=== PATIENT | female | born 1960 | race Caucasian/White ===

== ENCOUNTER 2016-10-14 09:38 | Emergency (ER) | payer MEDICARE, OTHER ==
--- NOTE | 2016-10-14 10:29 | ED ---
General Adult HPI - General Chief complaint: Chest Pain Stated complaint: CHEST PRESSURE, THINKS SHE HAS PNEUMONIA Time Seen by Provider: 10/14/16 10:13 Source: patient, RN notes reviewed, old records reviewed Mode of arrival: ambulatory Limitations: no limitations - History of Present Illness Initial comments: Chief complaint history of present illness this is a 56-year-old female complaint of a cough 1 week ago and chest pressure today. Think she has pneumonia. Pain does not increase with coughing but does increase with pushing on her xiphoid region. No associated nausea or sweats at this time. No radiation of discomfort. - Related Data Home Medications Medication Instructions Recorded Confirmed Meclizine [Antivert] 25 mg PO BID 12/21/14 10/14/16 Omeprazole [PriLOSEC] 20 mg PO BID 12/21/14 10/14/16 Butalb/APAP/Caff 50-325-40Mg 1 tab PO Q8H PRN 09/28/15 10/14/16 [Fioricet 50-325-40] Atenolol [Tenormin] 25 mg PO HS 01/10/16 10/14/16 Nitroglycerin Sl Tabs [Nitrostat] 0.4 mg SUBLINGUAL Q5M PRN 01/25/16 10/14/16 Dicyclomine HCl 10 mg PO DAILY 06/02/16 10/14/16 HYDROcodone/APAP 10-325MG [[place] 1 tab PO TID PRN 06/02/16 10/14/16 10-325] Rivaroxaban [Xarelto] 20 mg PO HS 06/02/16 10/14/16 Cholecalciferol [Vitamin D3] 2,000 unit PO DAILY 07/02/16 10/14/16 Atorvastatin Calcium [Lipitor] 20 mg PO HS 09/17/16 10/14/16 Topiramate [Topamax] 50 mg PO BID 09/17/16 10/14/16 Previous Rx's Medication Instructions Recorded Aspirin 81 mg PO DAILY #30 chew 06/07/16 ARIPiprazole [Abilify] 15 mg PO DAILY #30 tab 07/10/16 DULoxetine HCL [Cymbalta] 60 mg PO DAILY #30 cap 07/10/16 traZODone HCL [Desyrel] 50 mg PO HS #30 tab 07/10/16 Allergies Allergy/AdvReac Type Severity Reaction Status Date / Time hydrogen peroxide Allergy rash and Verified 10/14/16 10:16 skin burn metronidazole Allergy Unknown Verified 10/14/16 10:16 fentanyl AdvReac decreased Verified 10/14/16 10:16 bp isosorbide AdvReac Rapid Verified 10/14/16 10:16 Heart Rate Review of Systems ROS Statement: Those systems with pertinent positive or pertinent negative responses have been documented in the HPI. Patient denies any visual acuity changes she has a mild headache. No stiff neck no fever. Chest discomfort with palpation of her own chest. Productive cough clear in color. No abdominal pain denies any vomiting. No diarrhea. No complaint of a neuro deficits. All systems were otherwise reviewed. Past medical problems significant for angina, COPD, DVT, GERD, hyperlipidemia, pneumonia, pulmonary emboli, varicose veins. Surgeries appendectomy, cholecystectomy EGD and colonoscopy. Family history noncontributory. Patient has ALLERGIES to hydroperoxide, metronidazole, no and isosorbide. Currently encouraged to stop smoking. Denies alcohol use ROS Other: All systems not noted in ROS Statement are negative. Past Medical History Past Medical History: Chest Pain / Angina, COPD, Deep Vein Thrombosis (DVT), GERD/Reflux, Hyperlipidemia, Pneumonia, Pulmonary Embolus (PE) Additional Past Medical History / Comment(s): varicose veins,"low BP", migraines , osteoporosis ;mastitis bilat.IBS, VERTIGO, DDD NERVE DAMAGE GETS TRIGGER POINT SHOTS, bilateral PE 2014 and 2010 History of Any Multi-Drug Resistant Organisms: None Reported Past Surgical History: Appendectomy, Cholecystectomy Additional Past Surgical History / Comment(s): EGD/COLONOSCOPY/POLYPECTOMY- BENIGN Past Anesthesia/Blood Transfusion Reactions: No Reported Reaction Past Psychological History: Anxiety, Bipolar, Depression, PTSD, Schizophrenia Smoking Status: Current every day smoker Past Alcohol Use History: None Reported Additional Past Alcohol Use History / Comment(s): STARTED SMOKING AT AGE 14 A PACK LASTS BETWEEN 1-3 DAYS, Past Drug Use History: Marijuana - Past Family History Mother Family Medical History: Cancer, COPD, Hypertension Additional Family Medical History / Comment(s): LUNG CANCER Father Family Medical History: CVA/TIA, Hypertension General Exam - General Exam Comments Initial Comments: General: The patient is awake and alert, in no distress, and does not appear acutely ill. Planes of chest discomfort specifically over her xiphoid region. Had a cough last week. She states productive clear color. No radiation of pain. No associated sweats. Vital signs show temperature 97.8 pulse 71 respiratory rate 18 pulse ox 90% room air blood pressure 109/53 Eye: Pupils are equal, round and reactive to light, extra-ocular movements are intact ; there is normal conjunctiva bilaterally. No signs of icterus. Ears, nose, mouth and throat: There are moist mucous membranes and no oral lesions. Neck: The neck is supple, there is no tenderness , no JVD or anterior cervical lymphadenopathy. Cardiovascular: There is a regular rate and rhythm. No murmur, rub or gallop is appreciated. Palpation of the xiphoid re-creates her discomfort the patient is describing as her chest pain. Respiratory: Lungs are clear to auscultation, respirations are non-labored, breath sounds are equal. No wheezes, stridor, rales, or rhonchi. Gastrointestinal: Soft, non-distended, non-tender abdomen without masses or organomegaly noted. There is no rebound or guarding present. No CVA tenderness. Bowel sounds are unremarkable. Back: There is no tenderness to palpation in the midline. There is no obvious deformity. No rashes noted. Musculoskeletal: Normal ROM, no tenderness, There is no pedal edema. There is no calf tenderness or swelling. Sensation intact. Pulses equal bilaterally 2+. Neurological: CN II-XII intact, There are no obvious motor or sensory deficits. Coordination appears grossly intact. Speech is normal. Skin: Skin is warm and dry and no rashes or lesions are noted. Psychiatric: Cooperative, appropriate mood & affect, normal judgment. History of schizoaffective disorder. Limitations: no limitations Course Vital Signs 10/14/16 10/14/16 10:01 11:36 Temperature 97.8 F Pulse Rate 71 59 L Respiratory 18 16 Rate Blood Pressure 109/53 115/60 O2 Sat by Pulse 98 100 Oximetry Medical Decision Making - Medical Decision Making Medical decision making; patient's white count 7 hemoglobin 12 hematocrit of 36 with an INR 1.1, potassium 4.3 to BUN 8 creatinine 0.76 and GFR greater than 60. Glucose 89. Troponin less than 0.012. D-dimer 0.24. All numbers normal. Chest x-ray was done and reviewed by radiologist his impression is the lungs are clear and there is no pneumothorax, pleural effusion, or focal pneumonia. Hyperinflation noted. Degenerative changes of the spine seen. No acute process. As read by Dr. Stark The patient be advised to call follow-up with family physician and her rod pointer. Advised to use Mucinex and Tylenol for muscle aches and pains and discomfort. And return emergency room as needed. - Lab Data Result diagrams: 10/14/16 10:19 10/14/16 10:19 Lab Results 10/14/16 10/14/16 10/14/16 Range/Units 10:19 10:19 10:19 WBC 7.0 (3.8-10.6) k/uL RBC 3.94 (3.80-5.40) m/uL Hgb 12.5 (11.4-16.0) gm/dL Hct 36.0 (34.0-46.0) % MCV 91.4 (80.0-100.0) fL MCH 31.6 (25.0-35.0) pg MCHC 34.6 (31.0-37.0) g/dL RDW 14.1 (11.5-15.5) % Plt Count 235 (150-450) k/uL Neutrophils % 57 % Lymphocytes % 34 % Monocytes % 4 % Eosinophils % 2 % Basophils % 1 % Neutrophils # 4.0 (1.3-7.7) k/uL Lymphocytes # 2.4 (1.0-4.8) k/uL Monocytes # 0.3 (0-1.0) k/uL Eosinophils # 0.1 (0-0.7) k/uL Basophils # 0.1 (0-0.2) k/uL PT (9.0-12.0) sec INR (<1.1) APTT (22.0-30.0) sec D-Dimer (<0.60) mg/L FEU Sodium 137 (137-145) mmol/L Potassium 4.3 (3.5-5.1) mmol/L Chloride 107 (98-107) mmol/L Carbon Dioxide 21 L (22-30) mmol/L Anion Gap 9 mmol/L BUN 8 (7-17) mg/dL Creatinine 0.76 (0.52-1.04) mg/dL Est GFR (MDRD) Af Amer >60 (>60 ml/min/1.73 sqM) Est GFR (MDRD) Non-Af >60 (>60 ml/min/1.73 sqM) Glucose 89 (74-99) mg/dL Calcium 9.2 (8.4-10.2) mg/dL Magnesium 2.0 (1.6-2.3) mg/dL Total Bilirubin 0.2 (0.2-1.3) mg/dL AST 16 (14-36) U/L ALT 28 (9-52) U/L Alkaline Phosphatase 100 (38-126) U/L Total Creatine Kinase 70 (30-135) U/L CK-MB (CK-2) 0.5 (0.0-2.4) ng/mL CK-MB (CK-2) Rel Index 0.7 Troponin I <0.012 (0.000-0.034) ng/mL NT-Pro-B Natriuret Pep pg/mL Total Protein 5.9 L (6.3-8.2) g/dL Albumin 3.4 L (3.5-5.0) g/dL 10/14/16 10/14/16 Range/Units 10:19 10:19 WBC (3.8-10.6) k/uL RBC (3.80-5.40) m/uL Hgb (11.4-16.0) gm/dL Hct (34.0-46.0) % MCV (80.0-100.0) fL MCH (25.0-35.0) pg MCHC (31.0-37.0) g/dL RDW (11.5-15.5) % Plt Count (150-450) k/uL Neutrophils % % Lymphocytes % % Monocytes % % Eosinophils % % Basophils % % Neutrophils # (1.3-7.7) k/uL Lymphocytes # (1.0-4.8) k/uL Monocytes # (0-1.0) k/uL Eosinophils # (0-0.7) k/uL Basophils # (0-0.2) k/uL PT 10.7 (9.0-12.0) sec INR 1.1 (<1.1) APTT 26.3 (22.0-30.0) sec D-Dimer 0.24 (<0.60) mg/L FEU Sodium (137-145) mmol/L Potassium (3.5-5.1) mmol/L Chloride (98-107) mmol/L Carbon Dioxide (22-30) mmol/L Anion Gap mmol/L BUN (7-17) mg/dL Creatinine (0.52-1.04) mg/dL Est GFR (MDRD) Af Amer (>60 ml/min/1.73 sqM) Est GFR (MDRD) Non-Af (>60 ml/min/1.73 sqM) Glucose (74-99) mg/dL Calcium (8.4-10.2) mg/dL Magnesium (1.6-2.3) mg/dL Total Bilirubin (0.2-1.3) mg/dL AST (14-36) U/L ALT (9-52) U/L Alkaline Phosphatase (38-126) U/L Total Creatine Kinase (30-135) U/L CK-MB (CK-2) (0.0-2.4) ng/mL CK-MB (CK-2) Rel Index Troponin I (0.000-0.034) ng/mL NT-Pro-B Natriuret Pep 119 pg/mL Total Protein (6.3-8.2) g/dL Albumin (3.5-5.0) g/dL Disposition Clinical Impression: Costochondritis, acute, Viral upper respiratory tract infection Disposition: HOME SELF-CARE Condition: Stable Instructions: Costochondritis (ED), Viral Syndrome (ED) Additional Instructions: Use Tylenol or ibuprofen for pain. Use Mucinex for cold symptoms. Follow-up family physician return emergency room as needed Time of Disposition: 11:49
--- NOTE | 2016-10-14 10:41 | XR ---
EXAMINATION TYPE: XR chest 2V DATE OF EXAM: 10/14/2016 10:38 AM COMPARISON: 06/05/2016 HISTORY: Chest pain FINDINGS: The lungs are clear and there is no pneumothorax, pleural effusion, or focal pneumonia. Hyperinflati on noted. Degenerative change of the spine seen. IMPRESSION: 1. No acute process.
[2016-10-14 10:50] LABS: Basophils # (A) 0.1 k/uL (0-0.2); Basophils % (A) 1 %; CH 30.9; Eosinophils # (A) 0.1 k/uL (0-0.7); Eosinophils % (A) 2 %; HDW 2.48; HGB 12.5 gm/dL (11.4-16.0); Luc # (Auto) 0.18; Luc % (Auto) 3; Lymphocytes # (A) 2.4 k/uL (1.0-4.8); Lymphocytes % (A) 34 %; MCH 31.6 pg (25.0-35.0); MCHC 34.6 g/dL (31.0-37.0); MCV 91.4 fL (80.0-100.0); Mean Platelet Volume 7.4; Monocytes # (A) 0.3 k/uL (0-1.0); Monocytes % (A) 4 %; Neutrophils % (A) 57 %; RBC 3.94 m/uL (3.80-5.40); RDW 14.1 % (11.5-15.5); WBC (Perox) 7.46
[2016-10-14 11:01] LABS: ALT 28 U/L (9-52); AST 16 U/L (14-36); Alkaline Phosphatase 100 U/L (38-126); Anion Gap 9 mmol/L; Blood Urea Nitrogen 8 mg/dL (7-17); Calcium 9.2 mg/dL (8.4-10.2); Carbon Dioxide 21 mmol/L (22-30); Chloride 107 mmol/L (98-107); Glucose 89 mg/dL (74-99); Non-African American GFR(MDRD) >60 (>60 ml/min/1.73 sqM); Potassium 4.3 mmol/L (3.5-5.1); Sodium 137 mmol/L (137-145); Total Bilirubin 0.2 mg/dL (0.2-1.3); Total Protein 5.9 g/dL (6.3-8.2)
[2016-10-14 11:09] LABS: INR 1.1 (<1.1); Partial Thromboplastin Time 26.3 sec (22.0-30.0); Prothrombin Time 10.7 sec (9.0-12.0)
[2016-10-14 11:11] LABS: Creatine Kinase 70 U/L (30-135)
[2016-10-14 11:24] LABS: Creatine Kinase MB 0.5 ng/mL (0.0-2.4); Troponin I <0.012 ng/mL (0.000-0.034)
[2016-10-14 11:37] VITALS: RESP 16
[2016-10-14 11:56] VITALS: BP 105/67; PULSE 60; TEMP 97.2
== END 2016-10-14 12:04 | disposition home or self-care (01) ==
LOC: EC 09:38
DX: M94.0 Chondrocostal junction syndrome [Tietze] (principal); R42 Dizziness and giddiness; K21.9 Gastro-esophageal reflux disease without esophagitis; J06.9 Acute upper respiratory infection, unspecified; E78.5 Hyperlipidemia, unspecified; K58.9 Irritable bowel syndrome, unspecified; Z79.899 Other long term (current) drug therapy; Z79.01 Long term (current) use of anticoagulants; Z88.8 Allergy status to other drugs, medicaments and biological substances; Z91.048 Other nonmedicinal substance allergy status; Z88.5 Allergy status to narcotic agent; J44.9 Chronic obstructive pulmonary disease, unspecified; Z86.718 Personal history of other venous thrombosis and embolism; Z86.711 Personal history of pulmonary embolism; F17.200 Nicotine dependence, unspecified, uncomplicated; M81.0 Age-related osteoporosis without current pathological fracture
CPT/HCPCS: 36415; 71020; 80053; 82550; 82553; 83735; 83880; 84484; 85025; 85379; 85610; 85730; 93005; 99285

== ENCOUNTER 2016-12-27 13:47 | Emergency (ER) | payer MEDICARE, OTHER ==
[2016-12-27] MEDS ORDERED: SODIUM CHLORIDE 0.9% 1,000 ML IV STA ×2 (13:59)
--- NOTE | 2016-12-27 14:12 | ED ---
General Adult HPI - General Chief complaint: Chest Pain Stated complaint: Chest Pain Time Seen by Provider: 12/27/16 13:59 Source: patient, RN notes reviewed, old records reviewed Mode of arrival: wheelchair Limitations: no limitations - History of Present Illness Initial comments: This is a 56-year-old female ER for evaluation of chest pain. Patient does have anterior chest pain left-sided chest pain chest or left breast. Patient has history of chest pain and angina which she does take nitro for, this feels the same. Patient also history of COPD mild difficulties breathing but not significant, does admit to increased smoke smoking cigarettes recently secondary to stress. Patient did have recent hospital admission for chest pain and has had stress test for chest pain. Patient denies fever cough or congestion, but also missed history of DVT. - Related Data Home Medications Medication Instructions Recorded Confirmed Meclizine [Antivert] 25 mg PO BID 12/21/14 12/27/16 Omeprazole [PriLOSEC] 20 mg PO BID 12/21/14 12/27/16 Butalb/APAP/Caff 50-325-40Mg 1 tab PO Q8H PRN 09/28/15 12/27/16 [Fioricet 50-325-40] Atenolol [Tenormin] 25 mg PO HS 01/10/16 12/27/16 Nitroglycerin Sl Tabs [Nitrostat] 0.4 mg SUBLINGUAL Q5M PRN 01/25/16 12/27/16 HYDROcodone/APAP 10-325MG [[place] 1 tab PO TID PRN 06/02/16 12/27/16 10-325] Rivaroxaban [Xarelto] 20 mg PO HS 06/02/16 12/27/16 Cholecalciferol [Vitamin D3] 2,000 unit PO DAILY 07/02/16 12/27/16 Atorvastatin Calcium [Lipitor] 20 mg PO HS 09/17/16 12/27/16 Topiramate [Topamax] 50 mg PO BID 09/17/16 12/27/16 DULoxetine HCL [Cymbalta] 60 mg PO HS 12/27/16 12/27/16 Previous Rx's Medication Instructions Recorded Aspirin 81 mg PO DAILY #30 chew 06/07/16 Allergies Allergy/AdvReac Type Severity Reaction Status Date / Time hydrogen peroxide Allergy rash and Verified 12/27/16 14:30 skin burn metronidazole Allergy Unknown Verified 12/27/16 14:30 fentanyl AdvReac decreased Verified 12/27/16 14:30 bp isosorbide AdvReac Rapid Verified 12/27/16 14:30 Heart Rate Review of Systems ROS Statement: Those systems with pertinent positive or pertinent negative responses have been documented in the HPI. ROS Other: All systems not noted in ROS Statement are negative. Past Medical History Past Medical History: Chest Pain / Angina, COPD, Deep Vein Thrombosis (DVT), GERD/Reflux, Hyperlipidemia, Pneumonia, Pulmonary Embolus (PE) Additional Past Medical History / Comment(s): varicose veins,"low BP", migraines , osteoporosis ;mastitis bilat.IBS, VERTIGO, DDD NERVE DAMAGE GETS TRIGGER POINT SHOTS, bilateral PE 2014 and 2010 History of Any Multi-Drug Resistant Organisms: None Reported Past Surgical History: Appendectomy, Cholecystectomy Additional Past Surgical History / Comment(s): EGD/COLONOSCOPY/POLYPECTOMY- BENIGN Past Anesthesia/Blood Transfusion Reactions: No Reported Reaction Past Psychological History: Anxiety, Bipolar, Depression, PTSD, Schizophrenia Smoking Status: Current every day smoker Past Alcohol Use History: None Reported Additional Past Alcohol Use History / Comment(s): STARTED SMOKING AT AGE 14 A PACK LASTS BETWEEN 1-3 DAYS, Past Drug Use History: Marijuana - Past Family History Mother Family Medical History: Cancer, COPD, Hypertension Additional Family Medical History / Comment(s): LUNG CANCER Father Family Medical History: CVA/TIA, Hypertension General Exam Limitations: no limitations General appearance: alert, in no apparent distress, anxious Head exam: Present: atraumatic, normocephalic, normal inspection Eye exam: Present: normal appearance, PERRL, EOMI. Absent: scleral icterus, conjunctival injection, periorbital swelling ENT exam: Present: normal exam, mucous membranes moist Neck exam: Present: normal inspection. Absent: tenderness, meningismus, lymphadenopathy Respiratory exam: Present: normal lung sounds bilaterally. Absent: respiratory distress, wheezes, rales, rhonchi, stridor Cardiovascular Exam: Present: normal rhythm, tachycardia, normal heart sounds. Absent: systolic murmur, diastolic murmur, rubs, gallop, clicks GI/Abdominal exam: Present: soft, normal bowel sounds. Absent: distended, tenderness, guarding, rebound, rigid Extremities exam: Present: normal inspection, full ROM, normal capillary refill. Absent: tenderness, pedal edema, joint swelling, calf tenderness Back exam: Present: normal inspection Neurological exam: Present: alert, oriented X3, CN II-XII intact Psychiatric exam: Present: normal affect, normal mood Skin exam: Present: warm, dry, intact, normal color. Absent: rash Course Vital Signs 12/27/16 12/27/16 12/27/16 13:51 15:20 15:48 Temperature 98 F Pulse Rate 121 H Pulse Rate [ 74 Reinforcer ] Respiratory 18 16 Rate Blood Pressure 93/72 118/62 O2 Sat by Pulse 97 Oximetry 12/27/16 16:15 Temperature 97.4 F L Pulse Rate 59 L Pulse Rate [ Reinforcer ] Respiratory 18 Rate Blood Pressure 107/62 O2 Sat by Pulse 99 Oximetry - Reevaluation(s) Reevaluation #1: Patient's medical record is reviewed of her heart catheterization with clean coronary arteries Reevaluation #2: Patient is currently without specific chest pain, feeling better, does not want to stay for further evaluation at this time EKG Findings - EKG Comments: EKG Findings:: EKG shows normal sinus rhythm rate of 89, NM 1:30, QRS 84, QTc 450 Medical Decision Making - Medical Decision Making 56 female here for evaluation of chest pain. He does have prior cardiac evaluation with catheterization which was negative, vision an EKG and troponin are negative at this time, patient is without chest pain prior to discharge and would like to be discharged home. - Lab Data Result diagrams: 12/27/16 15:15 12/27/16 15:15 Lab Results 12/27/16 12/27/16 12/27/16 Range/Units 15:15 15:15 15:15 WBC 5.4 (3.8-10.6) k/uL RBC 3.98 (3.80-5.40) m/uL Hgb 12.0 (11.4-16.0) gm/dL Hct 36.5 (34.0-46.0) % MCV 91.7 (80.0-100.0) fL MCH 30.3 (25.0-35.0) pg MCHC 33.0 (31.0-37.0) g/dL RDW 13.9 (11.5-15.5) % Plt Count 148 L (150-450) k/uL Neutrophils % 53 % Lymphocytes % 34 % Monocytes % 5 % Eosinophils % 2 % Basophils % 1 % Neutrophils # 2.9 (1.3-7.7) k/uL Lymphocytes # 1.9 (1.0-4.8) k/uL Monocytes # 0.3 (0-1.0) k/uL Eosinophils # 0.1 (0-0.7) k/uL Basophils # 0.1 (0-0.2) k/uL PT (9.0-12.0) sec INR (<1.1) APTT (22.0-30.0) sec D-Dimer (<0.60) mg/L FEU Sodium 132 L (137-145) mmol/L Potassium 4.1 (3.5-5.1) mmol/L Chloride 102 (98-107) mmol/L Carbon Dioxide 21 L (22-30) mmol/L Anion Gap 9 mmol/L BUN 10 (7-17) mg/dL Creatinine 0.79 (0.52-1.04) mg/dL Est GFR (MDRD) Af Amer >60 (>60 ml/min/1.73 sqM) Est GFR (MDRD) Non-Af >60 (>60 ml/min/1.73 sqM) Glucose 91 (74-99) mg/dL Calcium 9.2 (8.4-10.2) mg/dL Phosphorus 3.4 (2.5-4.5) mg/dL Magnesium 1.8 (1.6-2.3) mg/dL Total Bilirubin 0.5 (0.2-1.3) mg/dL AST 18 (14-36) U/L ALT 31 (9-52) U/L Alkaline Phosphatase 88 (38-126) U/L Total Creatine Kinase 73 (30-135) U/L CK-MB (CK-2) 0.4 (0.0-2.4) ng/mL CK-MB (CK-2) Rel Index 0.5 Troponin I <0.012 (0.000-0.034) ng/mL Total Protein 6.1 L (6.3-8.2) g/dL Albumin 3.6 (3.5-5.0) g/dL Lipase (23-300) U/L TSH 0.733 (0.465-4.680) mIU/L 12/27/16 12/27/16 Range/Units 15:15 15:15 WBC (3.8-10.6) k/uL RBC (3.80-5.40) m/uL Hgb (11.4-16.0) gm/dL Hct (34.0-46.0) % MCV (80.0-100.0) fL MCH (25.0-35.0) pg MCHC (31.0-37.0) g/dL RDW (11.5-15.5) % Plt Count (150-450) k/uL Neutrophils % % Lymphocytes % % Monocytes % % Eosinophils % % Basophils % % Neutrophils # (1.3-7.7) k/uL Lymphocytes # (1.0-4.8) k/uL Monocytes # (0-1.0) k/uL Eosinophils # (0-0.7) k/uL Basophils # (0-0.2) k/uL PT 10.7 (9.0-12.0) sec INR 1.1 (<1.1) APTT 23.6 (22.0-30.0) sec D-Dimer 0.22 (<0.60) mg/L FEU Sodium (137-145) mmol/L Potassium (3.5-5.1) mmol/L Chloride (98-107) mmol/L Carbon Dioxide (22-30) mmol/L Anion Gap mmol/L BUN (7-17) mg/dL Creatinine (0.52-1.04) mg/dL Est GFR (MDRD) Af Amer (>60 ml/min/1.73 sqM) Est GFR (MDRD) Non-Af (>60 ml/min/1.73 sqM) Glucose (74-99) mg/dL Calcium (8.4-10.2) mg/dL Phosphorus (2.5-4.5) mg/dL Magnesium (1.6-2.3) mg/dL Total Bilirubin (0.2-1.3) mg/dL AST (14-36) U/L ALT (9-52) U/L Alkaline Phosphatase (38-126) U/L Total Creatine Kinase (30-135) U/L CK-MB (CK-2) (0.0-2.4) ng/mL CK-MB (CK-2) Rel Index Troponin I (0.000-0.034) ng/mL Total Protein (6.3-8.2) g/dL Albumin (3.5-5.0) g/dL Lipase 64 (23-300) U/L TSH (0.465-4.680) mIU/L - Radiology Data Radiology results: report reviewed (Chest x-ray two-view is negative for acute disease), image reviewed Disposition Clinical Impression: Atypical chest pain, Chest pain Disposition: HOME SELF-CARE Condition: Good Instructions: Chest Pain (ED) Referrals: Pinky Becker MD [Primary Care Provider] - 1-2 days
[2016-12-27] MEDS ORDERED: NITROGLYCERIN SL TABS 0.4 MG TAB SUBLINGUAL STA (15:17)
[2016-12-27] MEDS ORDERED: SODIUM CHLORIDE 0.9% 500 ML IV STA (15:17)
[2016-12-27] MEDS ORDERED: RX INFO: IV CONTRAST WAS GIVEN 1 EACH MISC MISCELLANE PRN (15:17)
[2016-12-27] MEDS ORDERED: MORPHINE SULFATE 4 MG/ML SYRINGE IVP STA (15:17)
[2016-12-27 15:35] LABS: Basophils # (A) 0.1 k/uL (0-0.2); Basophils % (A) 1 %; CH 31.5; CHCM 34.5; Eosinophils # (A) 0.1 k/uL (0-0.7); Eosinophils % (A) 2 %; HCT 36.5 % (34.0-46.0); HDW 2.37; Luc # (Auto) 0.23; Luc % (Auto) 4; Lymphocytes # (A) 1.9 k/uL (1.0-4.8); Lymphocytes % (A) 34 %; MCH 30.3 pg (25.0-35.0); MCV 91.7 fL (80.0-100.0); Mean Platelet Volume 9.6; Monocytes # (A) 0.3 k/uL (0-1.0); Monocytes % (A) 5 %; Neutrophils # (A) 2.9 k/uL (1.3-7.7); Neutrophils % (A) 53 %; RBC 3.98 m/uL (3.80-5.40); RDW 13.9 % (11.5-15.5); WBC 5.4 k/uL (3.8-10.6); WBC (Perox) 5.74
[2016-12-27 15:45] LABS: ALT 31 U/L (9-52); AST 18 U/L (14-36); Alkaline Phosphatase 88 U/L (38-126); Anion Gap 9 mmol/L; Blood Urea Nitrogen 10 mg/dL (7-17); Calcium 9.2 mg/dL (8.4-10.2); Carbon Dioxide 21 mmol/L (22-30); Chloride 102 mmol/L (98-107); Glucose 91 mg/dL (74-99); Magnesium 1.8 mg/dL (1.6-2.3); Non-African American GFR(MDRD) >60 (>60 ml/min/1.73 sqM); Phosphorous 3.4 mg/dL (2.5-4.5); Sodium 132 mmol/L (137-145); Total Bilirubin 0.5 mg/dL (0.2-1.3); Total Protein 6.1 g/dL (6.3-8.2)
[2016-12-27 15:55] LABS: INR 1.1 (<1.1); Partial Thromboplastin Time 23.6 sec (22.0-30.0); Prothrombin Time 10.7 sec (9.0-12.0)
--- NOTE | 2016-12-27 15:57 | XR ---
EXAMINATION TYPE: XR chest 2V DATE OF EXAM: 12/27/2016 3:47 PM COMPARISON: Prior chest x-ray second of October 2016 HISTORY: Weakness, chest pain and shortness of breath TECHNIQUE: Frontal and lateral views of the chest are obtained. FINDINGS: There is no focal air space opacity, pleural effusion, or pneumothorax seen. The cardiac silhouette size is within normal limits. There are overlying cardiac leads. Nodular density superim posed over the heart is stable. The osseous structures are intact. IMPRESSION: No acute cardiopulmonary process.
[2016-12-27 16:01] LABS: Creatine Kinase 73 U/L (30-135)
[2016-12-27 16:13] LABS: Creatine Kinase MB 0.4 ng/mL (0.0-2.4); Troponin I <0.012 ng/mL (0.000-0.034)
[2016-12-27 16:16] LABS: Potassium 4.1 mmol/L (3.5-5.1)
[2016-12-27 16:29] VITALS: BP 107/62; PULSE 59; RESP 18; TEMP 97.4
== END 2016-12-27 16:55 | disposition home or self-care (01) ==
LOC: EC 13:47
DX: R07.89 Other chest pain (principal); K21.9 Gastro-esophageal reflux disease without esophagitis; E78.5 Hyperlipidemia, unspecified; K58.9 Irritable bowel syndrome, unspecified; F31.9 Bipolar disorder, unspecified; F41.9 Anxiety disorder, unspecified; F43.10 Post-traumatic stress disorder, unspecified; F20.9 Schizophrenia, unspecified; F17.200 Nicotine dependence, unspecified, uncomplicated; I82.409 Acute embolism and thrombosis of unspecified deep veins of unspecified lower extremity; I26.99 Other pulmonary embolism without acute cor pulmonale; R00.0 Tachycardia, unspecified; Z88.5 Allergy status to narcotic agent; Z88.8 Allergy status to other drugs, medicaments and biological substances; Z79.01 Long term (current) use of anticoagulants; Z79.899 Other long term (current) drug therapy; Z88.1 Allergy status to other antibiotic agents
CPT/HCPCS: 99285; 96374; 96361; 36415; 93005; 85379; 80053; 82550; 82553; 83690; 83735; 84100; 84443; 84484; 85025; 85610; 85730; 71020; J2270

== ENCOUNTER 2017-01-02 22:05 | Observation (INO) | payer MEDICARE, OTHER ==
[2017-01-02] MEDS ORDERED: SODIUM CHLORIDE 0.9% 500 ML IV STA (22:48)
[2017-01-02] MEDS ORDERED: SODIUM CHLORIDE 0.9% 1,000 ML IV STA (22:48)
[2017-01-02 23:02] LABS: Basophils # (A) 0.1 k/uL (0-0.2); Basophils % (A) 1 %; CH 30.9; CHCM 33.4; Eosinophils # (A) 0.2 k/uL (0-0.7); Eosinophils % (A) 2 %; HCT 37.5 % (34.0-46.0); HDW 2.38; HGB 12.2 gm/dL (11.4-16.0); Luc # (Auto) 0.29; Luc % (Auto) 3; Lymphocytes # (A) 2.2 k/uL (1.0-4.8); Lymphocytes % (A) 24 %; MCH 30.4 pg (25.0-35.0); MCHC 32.7 g/dL (31.0-37.0); MCV 93.1 fL (80.0-100.0); Mean Platelet Volume 8.9; Monocytes # (A) 0.3 k/uL (0-1.0); Monocytes % (A) 3 %; Neutrophils # (A) 6.2 k/uL (1.3-7.7); Neutrophils % (A) 67 %; RBC 4.03 m/uL (3.80-5.40); WBC 9.2 k/uL (3.8-10.6)
[2017-01-02 23:11] LABS: ALT 22 U/L (9-52); AST 16 U/L (14-36); Alkaline Phosphatase 87 U/L (38-126); Anion Gap 8 mmol/L; Blood Urea Nitrogen 9 mg/dL (7-17); Calcium 9.2 mg/dL (8.4-10.2); Carbon Dioxide 24 mmol/L (22-30); Chloride 105 mmol/L (98-107); Creatine Kinase 57 U/L (30-135); Glucose 98 mg/dL (74-99); Non-African American GFR(MDRD) >60 (>60 ml/min/1.73 sqM); Potassium 3.9 mmol/L (3.5-5.1); Sodium 137 mmol/L (137-145); Total Bilirubin 0.2 mg/dL (0.2-1.3); Total Protein 5.9 g/dL (6.3-8.2)
[2017-01-02 23:18] LABS: Prothrombin Time 9.8 sec (9.0-12.0)
[2017-01-02 23:25] LABS: Creatine Kinase MB 0.3 ng/mL (0.0-2.4); Troponin I <0.012 ng/mL (0.000-0.034)
[2017-01-02 23:28] LABS: Partial Thromboplastin Time 17.8 sec (22.0-30.0)
--- NOTE | 2017-01-02 23:35 | XR ---
EXAMINATION TYPE: XR elbow limited LT DATE OF EXAM: 01/02/2017 11:25 PM COMPARISON: NONE HISTORY: Elbow pain TECHNIQUE: 2 views FINDINGS: I see no fracture nor dislocation. Joint spaces are normal. There is no sign of elbow joint effusion. IMPRESSION: Negative left elbow exam.
--- NOTE | 2017-01-02 23:35 | XR ---
EXAMINATION TYPE: XR chest 2V DATE OF EXAM: 01/02/2017 11:25 PM COMPARISON: 12/27/2016 HISTORY: Syncope TECHNIQUE: Frontal and lateral views of the chest are obtained. FINDINGS: Heart and mediastinum are normal. Lungs are clear. There are chest leads. Bony thorax is i ntact. Diaphragm is normal. IMPRESSION: Normal chest. No change.
--- NOTE | 2017-01-02 23:42 | CT ---
EXAMINATION TYPE: CT brain cely wo con DATE OF EXAM: 01/02/2017 11:25 PM COMPARISON: NONE HISTORY: Syncope. Fall. Pain. CT DLP: mGycm Automated exposure control for dose reduction was used. TECHNIQUE: CT scan of the head and cervical spine are performed without contrast. FINDINGS: The ventricles and sulci appear normal. There is no mass effect nor midline shift. There is no sign of intracranial hemorrhage. The calvarium is intact. The cervical vertebra have normal spacing and alignment. Posterior elements are intact. Facet joints are normal. Skull base appears intact. There is no sign of a fracture. There is noted some pleural th ickening and scarring at the right lung apex. IMPRESSION: Negative CT scan of the brain. Negative CT scan of the cervical spine.
[2017-01-02] MEDS ORDERED: ACETAMINOPHEN TAB 500 MG TAB PO STA (23:49)
[2017-01-03 00:41] LABS: Appearance,Urine Clear (Clear); Bilirubin,Urine Negative (Negative); Glucose,Urine (UA) Negative (Negative); Ketones,Urine Negative (Negative); Leukocyte Esterase,Urine Negative (Negative); Nitrite,Urine Negative (Negative); PH, Urine 5.5 (5.0-8.0); Protein,Urine Trace (Negative); Specific Gravity,Urine 1.016 (1.001-1.035); UA Billing (MACRO vs. MICRO) CHEM
--- NOTE | 2017-01-03 01:45 | ED ---
Syncope HPI - General Chief Complaint: Syncope Stated Complaint: Fall, hit head Time Seen by Provider: 01/02/17 22:40 Source: patient, EMS Mode of arrival: EMS Limitations: no limitations - History of Present Illness Initial Comments: She passed out today at home and her 9:00 she hit her head in the bathroom and complaining about the headache and the neck pain and some chest pressure complaining about the left elbow pain in the there is a scrape on the left elbow area she stated her tetanus is up-to-date denies any abdominal pain no frequency urgency dysuria - Related Data Home Medications Medication Instructions Recorded Confirmed Meclizine [Antivert] 25 mg PO BID 12/21/14 01/02/17 Omeprazole [PriLOSEC] 20 mg PO BID 12/21/14 01/02/17 Butalb/APAP/Caff 50-325-40Mg 1 tab PO Q8H PRN 09/28/15 01/02/17 [Fioricet 50-325-40] Atenolol [Tenormin] 25 mg PO HS 01/10/16 01/02/17 Nitroglycerin Sl Tabs [Nitrostat] 0.4 mg SUBLINGUAL Q5M PRN 01/25/16 01/02/17 HYDROcodone/APAP 10-325MG [[place] 1 tab PO TID PRN 06/02/16 01/02/17 10-325] Rivaroxaban [Xarelto] 20 mg PO HS 06/02/16 01/02/17 Cholecalciferol [Vitamin D3] 2,000 unit PO DAILY 07/02/16 01/02/17 Atorvastatin Calcium [Lipitor] 20 mg PO HS 09/17/16 01/02/17 Topiramate [Topamax] 50 mg PO BID 09/17/16 01/02/17 DULoxetine HCL [Cymbalta] 60 mg PO HS 12/27/16 01/02/17 Previous Rx's Medication Instructions Recorded Aspirin 81 mg PO DAILY #30 chew 06/07/16 Allergies Allergy/AdvReac Type Severity Reaction Status Date / Time hydrogen peroxide Allergy rash and Verified 01/02/17 23:08 skin burn metronidazole Allergy Unknown Verified 01/02/17 23:08 fentanyl AdvReac decreased Verified 01/02/17 23:08 bp isosorbide AdvReac Rapid Verified 01/02/17 23:08 Heart Rate Review of Systems ROS Statement: Those systems with pertinent positive or pertinent negative responses have been documented in the HPI. ROS Other: All systems not noted in ROS Statement are negative. Past Medical History Past Medical History: Chest Pain / Angina, COPD, Deep Vein Thrombosis (DVT), GERD/Reflux, Hyperlipidemia, Pneumonia, Pulmonary Embolus (PE) Additional Past Medical History / Comment(s): varicose veins,"low BP", migraines , osteoporosis ;mastitis bilat.IBS, VERTIGO, DDD NERVE DAMAGE GETS TRIGGER POINT SHOTS, bilateral PE 2014 and 2010 History of Any Multi-Drug Resistant Organisms: None Reported Past Surgical History: Appendectomy, Cholecystectomy Additional Past Surgical History / Comment(s): EGD/COLONOSCOPY/POLYPECTOMY- BENIGN Past Anesthesia/Blood Transfusion Reactions: No Reported Reaction Past Psychological History: Anxiety, Bipolar, Depression, PTSD, Schizophrenia Smoking Status: Current every day smoker Past Alcohol Use History: None Reported Additional Past Alcohol Use History / Comment(s): STARTED SMOKING AT AGE 14 A PACK LASTS BETWEEN 1-3 DAYS, Past Drug Use History: Marijuana - Past Family History Mother Family Medical History: Cancer, COPD, Hypertension Additional Family Medical History / Comment(s): LUNG CANCER Father Family Medical History: CVA/TIA, Hypertension General Exam - General Exam Comments Initial Comments: General: The patient is awake and alert, in no distress, and does not appear acutely ill. Skin: Skin is warm and dry and no rashes or lesions are noted. Eye: Pupils are equal, round and reactive to light, extra-ocular movements are intact; there is normal conjunctiva bilaterally. Ears, nose, mouth and throat: There are moist mucous membranes and no oral lesions. Neck: The neck is supple, there is no tenderness under in the mid cervical region at C4 Cardiovascular: There is a regular rate and rhythm. No murmur, rub or gallop is appreciated. Respiratory: To auscultation bilateral, no wheezing no rhonchi no distress respiratory griffin noticed Gastrointestinal: Soft, non-distended, non-tender abdomen without masses or organomegaly noted. There is no rebound or guarding present. Bowel sounds are unremarkable. Back: There is no tenderness to palpation in the midline. There is no obvious deformity. Musculoskeletal: Normal ROM, no tenderness, There is no pedal edema. There is no calf tenderness or swelling. No cords were appreciated. Neurological: CN II-XII intact, Cranial nerves III through XII are intact. There are no obvious motor or sensory deficits. Coordination appears grossly intact. Speech is normal. Psychiatric: Cooperative, appropriate mood & affect, normal judgment. Limitations: no limitations Course Vital Signs 01/02/17 01/02/17 01/02/17 22:18 22:28 22:59 Temperature 97.6 F Pulse Rate 64 64 Respiratory 18 18 Rate Blood Pressure 80/45 100/51 Blood Pressure 86/57 [Right Arm Sitting] Blood Pressure 96/59 [Right Arm Standing] Blood Pressure 83/53 [Right Arm Supine] O2 Sat by Pulse 98 95 Oximetry 01/03/17 01/03/17 00:05 01:07 Temperature Pulse Rate 67 62 Respiratory 18 18 Rate Blood Pressure 100/49 103/53 Blood Pressure [Right Arm Sitting] Blood Pressure [Right Arm Standing] Blood Pressure [Right Arm Supine] O2 Sat by Pulse 95 95 Oximetry I reassessed her at 1:30, her chest x-ray, head CT cervical spine CT are are negative x-ray of the elbow is negative for CBC, INR, compressive metabolic panel, EKG, troponin, UA all or negative and I noticed that her blood pressure is quite on the lower side it's and she had a second bolus him and it's still not above 100 considering the very low blood pressure and I'm convinced that this is probably the one reason call caused her syncope and head injury to (considering that I wanted to watch her overnight she is on atenolol she will Gently decrease the dose of atenolol him hydrate her and make sure she doesn't have any orthostatic hypotension and hopefully that would decrease her probability of falls and injuries from the fall EKG Findings - EKG Comments: EKG Findings:: EKG is normal sinus rhythm ventricular rate is 60 KS interval is 142 QRS duration is 80 QT/QTc is 400/400 home review of this EKG does not show any ST elevation or ST depression Medical Decision Making - Lab Data Result diagrams: 01/02/17 22:20 01/02/17 22:20 Lab Results 01/02/17 01/02/17 01/02/17 Range/Units 22:20 22:20 22:20 WBC 9.2 (3.8-10.6) k/uL RBC 4.03 (3.80-5.40) m/uL Hgb 12.2 (11.4-16.0) gm/dL Hct 37.5 (34.0-46.0) % MCV 93.1 (80.0-100.0) fL MCH 30.4 (25.0-35.0) pg MCHC 32.7 (31.0-37.0) g/dL RDW 14.0 (11.5-15.5) % Plt Count 178 (150-450) k/uL Neutrophils % 67 % Lymphocytes % 24 % Monocytes % 3 % Eosinophils % 2 % Basophils % 1 % Neutrophils # 6.2 (1.3-7.7) k/uL Lymphocytes # 2.2 (1.0-4.8) k/uL Monocytes # 0.3 (0-1.0) k/uL Eosinophils # 0.2 (0-0.7) k/uL Basophils # 0.1 (0-0.2) k/uL PT (9.0-12.0) sec INR (<1.1) APTT (22.0-30.0) sec Sodium 137 (137-145) mmol/L Potassium 3.9 (3.5-5.1) mmol/L Chloride 105 (98-107) mmol/L Carbon Dioxide 24 (22-30) mmol/L Anion Gap 8 mmol/L BUN 9 (7-17) mg/dL Creatinine 0.91 (0.52-1.04) mg/dL Est GFR (MDRD) Af Amer >60 (>60 ml/min/1.73 sqM) Est GFR (MDRD) Non-Af >60 (>60 ml/min/1.73 sqM) Glucose 98 (74-99) mg/dL Calcium 9.2 (8.4-10.2) mg/dL Total Bilirubin 0.2 (0.2-1.3) mg/dL AST 16 (14-36) U/L ALT 22 (9-52) U/L Alkaline Phosphatase 87 (38-126) U/L Total Creatine Kinase 57 (30-135) U/L CK-MB (CK-2) 0.3 (0.0-2.4) ng/mL CK-MB (CK-2) Rel Index 0.5 Troponin I <0.012 (0.000-0.034) ng/mL Total Protein 5.9 L (6.3-8.2) g/dL Albumin 3.5 (3.5-5.0) g/dL Urine Color Urine Appearance (Clear) Urine pH (5.0-8.0) Ur Specific [place] (1.001-1.035) Urine Protein (Negative) Urine Glucose (UA) (Negative) Urine Ketones (Negative) Urine Blood (Negative) Urine Nitrite (Negative) Urine Bilirubin (Negative) Urine Urobilinogen (<2.0) mg/dL Ur Leukocyte Esterase (Negative) 01/02/17 01/03/17 Range/Units 22:20 00:25 WBC (3.8-10.6) k/uL RBC (3.80-5.40) m/uL Hgb (11.4-16.0) gm/dL Hct (34.0-46.0) % MCV (80.0-100.0) fL MCH (25.0-35.0) pg MCHC (31.0-37.0) g/dL RDW (11.5-15.5) % Plt Count (150-450) k/uL Neutrophils % % Lymphocytes % % Monocytes % % Eosinophils % % Basophils % % Neutrophils # (1.3-7.7) k/uL Lymphocytes # (1.0-4.8) k/uL Monocytes # (0-1.0) k/uL Eosinophils # (0-0.7) k/uL Basophils # (0-0.2) k/uL PT 9.8 (9.0-12.0) sec INR 1.0 (<1.1) APTT 17.8 L (22.0-30.0) sec Sodium (137-145) mmol/L Potassium (3.5-5.1) mmol/L Chloride (98-107) mmol/L Carbon Dioxide (22-30) mmol/L Anion Gap mmol/L BUN (7-17) mg/dL Creatinine (0.52-1.04) mg/dL Est GFR (MDRD) Af Amer (>60 ml/min/1.73 sqM) Est GFR (MDRD) Non-Af (>60 ml/min/1.73 sqM) Glucose (74-99) mg/dL Calcium (8.4-10.2) mg/dL Total Bilirubin (0.2-1.3) mg/dL AST (14-36) U/L ALT (9-52) U/L Alkaline Phosphatase (38-126) U/L Total Creatine Kinase (30-135) U/L CK-MB (CK-2) (0.0-2.4) ng/mL CK-MB (CK-2) Rel Index Troponin I (0.000-0.034) ng/mL Total Protein (6.3-8.2) g/dL Albumin (3.5-5.0) g/dL Urine Color Yellow Urine Appearance Clear (Clear) Urine pH 5.5 (5.0-8.0) Ur Specific [place] 1.016 (1.001-1.035) Urine Protein Trace H (Negative) Urine Glucose (UA) Negative (Negative) Urine Ketones Negative (Negative) Urine Blood Negative (Negative) Urine Nitrite Negative (Negative) Urine Bilirubin Negative (Negative) Urine Urobilinogen 2.0 (<2.0) mg/dL Ur Leukocyte Esterase Negative (Negative) Disposition Clinical Impression: Syncope, Chest pressure, Hypotension Disposition: ADMITTED IP TO THIS [facility] Condition: Good
[2017-01-03] MEDS ORDERED: ACETAMINOPHEN TAB 325 MG TAB PO PRN (02:04)
[2017-01-03] MEDS ORDERED: NITROGLYCERIN SL TABS 0.4 MG TAB SUBLINGUAL PRN (02:12)
[2017-01-03 03:17] LABS: Glucose,Whole Blood 101 mg/dL (75-99)
[2017-01-03 06:43] LABS: Creatine Kinase 45 U/L (30-135)
[2017-01-03 06:55] LABS: Creatine Kinase MB 0.3 ng/mL (0.0-2.4); Troponin I <0.012 ng/mL (0.000-0.034)
[2017-01-03] MEDS ORDERED: ONDANSETRON 4 MG/2 ML VIAL IVP PRN (09:54)
[2017-01-03] MEDS ORDERED: ATENOLOL 25 MG TAB PO STA (10:19)
[2017-01-03] MEDS: ASPIRIN 81 MG CHEW PO SCH (10:33)
[2017-01-03] MEDS: PANTOPRAZOLE 40 MG TABLET PO SCH ×2 (10:33→17:54)
[2017-01-03] MEDS: MECLIZINE 25 MG TAB PO SCH ×2 (10:34→20:02)
--- NOTE | 2017-01-03 11:03 | P.CRDCN ---
History of Present Illness Consult date: 01/03/17 Chief complaint: syncope History of present illness: this is a pleasant 56-year-old female patient who sees Dr. BETTINA Edwards as an outpatient with a past medical history significant for history of PE presented to the hospital after she lost her consciousness at home. She was in her usual state of health where she woke up to go to the bathroom and she felt slightly dizzy and lightheaded. She was sitting on the toilet and she stood up and that the last thing she remembered. She does not recall having any chest pain or discomfort or difficulty breathing or heart racing or fluttering. The cardiac workup came in to be unremarkable. The EKG showed sinus rhythm without any ischemic changes. The cardiac enzymes came in to be unremarkable. I do think that the patient had vasovagal syncope. I would not recommend proceeding with any further cardiac workup. The patient can be discharged home and follow-up with Dr. BETTINA Edwards as an outpatient. Past Medical History Past Medical History: Chest Pain / Angina, COPD, Deep Vein Thrombosis (DVT), GERD/Reflux, Hyperlipidemia, Pneumonia, Pulmonary Embolus (PE) Additional Past Medical History / Comment(s): varicose veins,"low BP", migraines , osteoporosis ;mastitis bilat.IBS, VERTIGO, DDD NERVE DAMAGE GETS [place] SHOTS, bilateral PE 2014 and 2010 History of Any Multi-Drug Resistant Organisms: None Reported Past Surgical History: Appendectomy, Cholecystectomy Additional Past Surgical History / Comment(s): EGD/COLONOSCOPY/POLYPECTOMY- BENIGN Past Anesthesia/Blood Transfusion Reactions: No Reported Reaction Past Psychological History: Anxiety, Bipolar, Depression, PTSD, Schizophrenia Smoking Status: Current every day smoker Past Alcohol Use History: None Reported Additional Past Alcohol Use History / Comment(s): STARTED SMOKING AT AGE 14 A PACK LASTS BETWEEN 1-3 DAYS, Past Drug Use History: Marijuana - Past Family History Mother Family Medical History: Cancer, COPD, Hypertension Additional Family Medical History / Comment(s): LUNG CANCER Father Family Medical History: CVA/TIA, Hypertension Medications and Allergies Home Medications Medication Instructions Recorded Confirmed Type Meclizine [Antivert] 25 mg PO BID 12/21/14 01/02/17 History Omeprazole [PriLOSEC] 20 mg PO BID 12/21/14 01/02/17 History Butalb/APAP/Caff 50-325-40Mg 1 tab PO Q8H PRN 09/28/15 01/02/17 History [Fioricet 50-325-40] Atenolol [Tenormin] 25 mg PO HS 01/10/16 01/02/17 History Nitroglycerin Sl Tabs [Nitrostat] 0.4 mg SUBLINGUAL Q5M PRN 01/25/16 01/02/17 History HYDROcodone/APAP 10-325MG [[place] 1 tab PO TID PRN 06/02/16 01/02/17 History 10-325] Rivaroxaban [Xarelto] 20 mg PO HS 06/02/16 01/02/17 History Cholecalciferol [Vitamin D3] 2,000 unit PO DAILY 07/02/16 01/02/17 History Atorvastatin Calcium [Lipitor] 20 mg PO HS 09/17/16 01/02/17 History Topiramate [Topamax] 50 mg PO BID 09/17/16 01/02/17 History DULoxetine HCL [Cymbalta] 60 mg PO HS 12/27/16 01/02/17 History Allergies Allergy/AdvReac Type Severity Reaction Status Date / Time hydrogen peroxide Allergy rash and Verified 01/02/17 23:08 skin burn metronidazole Allergy Unknown Verified 01/02/17 23:08 fentanyl AdvReac decreased Verified 01/02/17 23:08 bp isosorbide AdvReac Rapid Verified 01/02/17 23:08 Heart Rate Physical Exam Vitals: Vital Signs Temp Pulse Pulse Resp BP BP Pulse Ox 01/03/17 09:20 99.0 F 67 16 118/63 97 01/03/17 08:38 68 16 119/62 96 01/03/17 06:45 62 16 104/61 96 01/03/17 05:44 67 18 90/52 96 Intake and Output 01/02/17 01/03/17 01/03/17 22:59 06:59 14:59 Output Total 300 Balance -300 Output: Emesis 300 Other: # Voids 1 - Constitutional General appearance: no acute distress - Respiratory Respiratory: bilateral: CTA - Cardiovascular Rhythm: regular Heart sounds: normal: S1, S2 Results 01/02/17 22:20 01/02/17 22:20 Cardiac Enzymes 01/03/17 Range/Units 05:22 CK-MB (CK-2) 0.3 (0.0-2.4) ng/mL Troponin I <0.012 (0.000-0.034) ng/mL Current Medications Generic Name Dose Route Start Last Admin Trade Name Freq PRN Reason Stop Dose Admin Acetaminophen 650 mg 01/03/17 02:04 Tylenol Tab PO Q4HR PRN Mild Pain Acetaminophen/Butalbital/Caffeine 1 each 01/03/17 02:12 Fioricet 50-325-40 PO Q8H PRN Migraine Headache Hydrocodone Bitart/Acetaminophen 1 each 01/03/17 02:12 [place] 10 PO TID PRN Pain Aspirin 81 mg 01/03/17 09:00 01/03/17 10:33 Aspirin PO 81 mg DAILY RHEA Administration Atorvastatin Calcium 20 mg 01/03/17 21:00 Lipitor PO HS RHEA Cholecalciferol 2,000 unit 01/03/17 09:00 Vitamin D3 PO DAILY RHEA Duloxetine HCl 60 mg 01/03/17 21:00 Cymbalta PO HS RHEA Meclizine HCl 25 mg 01/03/17 09:00 01/03/17 10:34 Antivert PO 25 mg BID RHEA Administration Nitroglycerin 0.4 mg 01/03/17 02:12 Nitrostat SUBLINGUAL Q5M PRN Pain Ondansetron HCl 4 mg 01/03/17 09:54 01/03/17 10:00 Zofran IVP 4 mg Q6HR PRN Administration Nausea And Vomiting Pantoprazole Sodium 40 mg 01/03/17 07:30 01/03/17 10:33 Protonix PO 40 mg AC-BID RHEA Administration Rivaroxaban 20 mg 01/03/17 21:00 Xarelto PO HS RHEA Topiramate 50 mg 01/03/17 09:00 Topamax PO BID RHEA Intake and Output 01/02/17 01/03/17 01/03/17 22:59 06:59 14:59 Output Total 300 Balance -300 Output: Emesis 300 Other: # Voids 1 Assessment and Plan Plan: assessment #1 syncope likely vasovagal Plan The patient was ruled out for acute coronary event From the cardiovascular standpoint of view, she can be discharged home.
[2017-01-03 11:49] LABS: Creatine Kinase 49 U/L (30-135)
[2017-01-03 11:59] LABS: Creatine Kinase MB 0.3 ng/mL (0.0-2.4); Troponin I <0.012 ng/mL (0.000-0.034)
[2017-01-03] MEDS: CHOLECALCIFEROL 1,000 UNIT TAB PO SCH ×2 (13:58→16:37)
[2017-01-03] MEDS: TOPIRAMATE 25 MG TAB PO SCH ×2 (13:58→20:01)
[2017-01-03] MEDS: HYDROcodone/APAP 10-325MG 1 EACH TAB PO PRN ×2 (14:07→22:46)
[2017-01-03] MEDS: BUTALB/APAP/CAFF 50-325-40MG TAB PO PRN (16:40)
[2017-01-03 17:28] VITALS: RESP 18
--- NOTE | 2017-01-03 17:33 | HP ---
DATE OF ADMISSION: 01/03/2017 CHIEF COMPLAINT: Syncope. HISTORY OF PRESENT ILLNESS: Ms. Saba is a 56-year-old female with a known history of PE, on anticoagulation with Xarelto, migraine headaches, GERD, and hyperlipidemia. She came to the hospital after an episode of syncope while at home. Apparently patient was sitting on the chair and suddenly felt hot and she wanted to go to the bathroom. She went to the bathroom, and after using the bathroom she was trying to stand up and suddenly she lost consciousness. By the time she woke up, she was sitting by the side of the commode and hit her head on the commode. She then got up and called the ambulance. Patient does not have any involuntary bowel or bladder incontinence. Patient does currently have dizziness, but no complaints of chest pain or shortness of breath. After a prior episode did not have any difficulty breathing or palpitations. Patient was seen in the ER. EKG showed no ST-T-wave changes and CT head is negative. Cardiology saw the patient and the patient was started back on her home medication. Apparently patient has not been eating well recently. Serial EKGs and troponins have been negative so far. REVIEW OF SYSTEMS: CONSTITUTIONAL: No fever. No chills. No weakness or malaise. RESPIRATORY: No cough or sputum production. CARDIOVASCULAR: No chest pain or shortness of breath. ABDOMEN: No nausea, vomiting, abdominal pain. GENITOURINARY: Negative. ENDOCRINE: Negative. PSYCHIATRY: Negative. SKIN: Negative. MUSCULOSKELETAL: Negative. All other fourteen-point review of systems negative except as above. PAST MEDICAL HISTORY: 1. History of DVT/PE. 2. GERD. 3. Chest pain/angina. 4. COPD. 5. Hyperlipidemia. 6. History of pneumonia. 7. History of varicose veins. 8. Low blood pressure. 9. Migraine headaches. 10. Osteoporosis. 11. Bilateral mastitis. 12. IBS. 13. Vertigo. 14. Bilateral PE in 2014 and 2010. PAST SURGICAL HISTORY: 1. Appendectomy. 2. Cholecystectomy. 3. EGD. 4. Colonoscopy. 5. Polypectomy, benign. PSYCHOSOCIAL HISTORY: Anxiety, bipolar, depression, PTSD, schizophrenia. SOCIAL HISTORY: Patient is currently an everyday smoker. She started smoking at age 14 with a pack lasting 1 to 3 days. Occasional use of marijuana. Denied any drugs or IVDU. FAMILY HISTORY: Mother had lung cancer, COPD and hypertension. Father had CVA/TIA and hypertension. HOME MEDICATIONS: 1. Antivert. 2. Omeprazole. 3. Fioricet. 4. Atenolol. 5. Nitrostat. 6. [place] 10. 7. Xarelto. 8. Vitamin D3. 9. Atorvastatin. 10. Topiramate. 11. Cymbalta. ALLERGIES include: 1. HYDROGEN PEROXIDE. 2. METRONIDAZOLE. 3. FENTANYL. 4. ISOSORBIDE. PHYSICAL EXAMINATION: This is a 56-year-old female lying in the bed comfortably. Awake, alert, oriented x3. Appears to be in no distress. VITALS: Blood pressure is 80/45. Pulse is 64, respiration 18, temperature afebrile, pulse ox 98% on room air. Orthostatic vitals are negative on admission. HEENT: Atraumatic, normocephalic. Neck is supple. No JVD. CVS EXAM: S1, S2 heard. No murmurs. No gallop. No rub. LUNGS: Bilateral air entry is present. No wheezing. No crackles. Non-labored breathing. ABDOMEN: Soft, nontender. Bowel sounds present. 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 No focal deficit. EXTREMITIES: No edema. Pulses palpable bilaterally. No clubbing or cyanosis. PSYCHIATRIC: Cooperative. LABORATORY DATA: WBC 9.2, hemoglobin 12.2, platelets 178. INR 1.0. Sodium 137, potassium 3.9, chloride 105. Bicarb is 24. BUN 9, creatinine 0.9. Albumin 3.5. Troponin x3 negative. UA showed trace protein; otherwise negative for infection. CT head: no acute bleed. Chest x-ray: normal chest. CTA neck: no acute fracture or dislocation. EKG: normal sinus rhythm. X-ray of the elbow: negative left elbow exam. IMPRESSION: 1. Syncope, most likely vasovagal. 2. History of bilateral pulmonary embolism. 3. Chronic obstructive pulmonary disease. 4. Active smoking. 5. Gastroesophageal reflux disease. 6. Chest pain/angina. 7. Varicose veins. 8. Chronic low blood pressure. 9. Osteoporosis. 10. History of bilateral mastitis. 11. Bilateral pulmonary embolism in 2014 and 2010. DISCUSSION AND PLAN: This is a 56-year-old female admitted to the hospital after a syncopal episode, most likely vasovagal, after using the bathroom. Patient is also hypotensive, but orthostatics were negative on admission. Patient will be continued on IV hydration. Continue with the home medications, including Xarelto. Follow up closely. Further recommendations based on the clinical course. Cardiology has seen the patient.
--- NOTE | 2017-01-03 17:48 | P.PN ---
Subjective Principal diagnosis: Syncope this is a 56-year-old female being evaluated by the neurology service for an episode of syncope last night. He was brought by EMS to the emergency room at [facility]. She is known to us in our practice for history of chronic low back pain, chronic migraines, myofascial pain, central and peripheral vertigo, and a history of pulmonary embolism. She was seen earlier in the week in our office and was doing well. She says for the past couple days she has not been eating or drinking well. Earlier in the day she felt some nausea and lightheadedness. Watching a movie she went to the bathroom, and the next thing she remembers is being on the bathroom floor. She had hit her head. There was no bladder or bowel incontinence. The episode was not witnessed. Cardiology has evaluated and given a likely diagnosis of vasovagal syncope. She had a normal CT of the brain and cervical spine.her blood pressure in the ER was quite low. Time of my exam she is resting comfortably in bed and just finished eating. She denies any significant persistent symptoms. She does note that she has had some what she describes as tremor of the right lower extremity lately. She says there've been a couple episodes of this since her time in the ER and on the floor. Objective - Vital Signs Vital signs: Vital Signs Temp 97.7 F 01/03/17 17:27 Pulse 68 01/03/17 17:27 Resp 18 01/03/17 17:27 BP 112/56 01/03/17 17:27 Pulse Ox 95 01/03/17 17:27 Intake & Output 01/02/17 01/03/17 01/03/17 18:59 06:59 18:59 Intake Total 900 Output Total 300 Balance 600 Intake: IV 900 Sodium Chloride 0.9% 1, 900 000 ml @ 100 mls/hr IV . Q10H STA Rx#:[id number] Output: Emesis 300 Other: # Voids 0 - Constitutional General appearance: Present: average body habitus, cooperative, no acute distress - EENT Eyes: Present: edentulous, EOMI, PERRLA. Absent: abnormal pupil, ptosis ENT: Present: hearing grossly normal - Neck Neck: Present: normal ROM. Absent: rigidity - Respiratory Respiratory: negative: prolonged expiration, prolonged inspiration - Cardiovascular Rhythm: regular - Gastrointestinal General gastrointestinal: Absent: distended, tenderness - Neurologic Neurologic Comment(s): the patient is alert awake and oriented 3. Speech and language are normal. There is no facial asymmetry. Strength is full in bilateral lower extremities. There is no sensory deficit of the face or any extremity. There is no pronator drift. No tremors or seizure-like activities are seen. Cranial nerves II through XII are intact globally. She does have some mild tenderness over the left parietal and occipital region, this was from her fall. - Labs CBC & Chem 7: 01/02/17 22:20 01/02/17 22:20 Assessment and Plan (1) Head contusion Status: Acute (2) Chronic vertigo Status: Chronic (3) Tremor Status: Suspected (4) Hypotension Status: Acute (5) Syncope Status: Acute Plan: she has likely suffered a vasovagal episode resulting in syncope and fall causing her head contusion. She has been cleared from a cardiology standpoint, but we are still awaiting carotid Doppler. An EEG has been ordered. She did mention some right leg tremor activity this is new to her, and we would like to rule out any potential seizure activity. Otherwise continue IV hydration and orthostatic checks. Continue neuro checks. We will continue to follow and make further recommendations based on the above studies. If her carotid Doppler and EEG are unremarkable she would be cleared from a neurological standpoint to follow up in our office. I have reviewed the history and physical on the above patient. I have reviewed the above note, and agree.
--- NOTE | 2017-01-03 18:19 | US ---
EXAMINATION TYPE: US carotid duplex BILAT DATE OF EXAM: 01/03/2017 5:58 PM COMPARISON: NONE CLINICAL HISTORY: sycope/weakness. Pt states dizziness with collapse EXAM MEASUREMENTS: RIGHT: Peak Systolic Velocity (PSV) cm/sec ----- Right CCA: 87.7 ----- Right ICA: 84.3 ----- Right ECA: 71.2 ICA/CCA ratio: 1.0 RIGHT: End Diastole cm/sec ----- Right CCA: 24.9 ----- Right ICA: 30.2 ----- Right ECA: 16.2 LEFT: Peak Systolic Velocity (PSV) cm/sec ----- Left CCA: 68.6 ----- Left ICA: 100.9 ----- Left ECA: 107.0 ICA/CCA ratio: 1.5 LEFT: End Diastole cm/sec ----- Left CCA: 24.1 ----- Left ICA: 35.9 ----- Left ECA: 21.5 VERTEBRALS (direction of flow): Right Vertebral: Antegrade Left Vertebral: Antegrade No significant stenosis seen bilaterally IMPRESSION: There is antegrade flow in the vertebral arteries. The images and measurements suggest 2 0-30% stenosis of both internal carotid arteries. Criteria for Assigning % of Stenosis / Diameter reduction (Estimation based on the indirect measurements of the internal carotid artery velocities (ICA PSV). 1. Normal (no stenosis)=ICA PSV < 125 cm/s: ratio < 2.0: ICA EDV<40 cm/s. 2. Less than 50% stenosis=ICA PSV < 125 cm/s: ratio < 2.0: ICA EDV<40 cm/s. 3. 50 to 69% stenosis=ICA PSV of 125 to 230 cm/s: ration 2.0 ? 4.0: ICA EDV 40-100 cm/s. 4. Greater than 70% stenosis to near occlusion= ICA PSV > 230 cm/s: ratio > 4.0: ICA EDV > 100 cm/s. 5. Near occlusion= ICA PSV velocities may be low or undetectable: variable ratio and ICA EDV. 6. Total occlusion=unable to detect flow.
[2017-01-03] MEDS ORDERED: MELATONIN 5 MG TABLET PO PRN (19:41)
[2017-01-03] MEDS ORDERED: RIVAROXABAN 10 MG TAB PO SCH (21:00)
[2017-01-03] MEDS ORDERED: DULoxetine HCL 60 MG CAPSULE.DR PO SCH (21:00)
[2017-01-03] MEDS ORDERED: ATORVASTATIN 20 MG TAB PO SCH (21:00)
[2017-01-04] MEDS: PANTOPRAZOLE 40 MG TABLET PO SCH (06:28)
[2017-01-04 06:36] LABS: Cholesterol 124 mg/dL (<200); HDL Cholesterol 49 mg/dL (40-60); Triglycerides 80 mg/dL (<150)
[2017-01-04] MEDS: TOPIRAMATE 25 MG TAB PO SCH (08:01)
[2017-01-04] MEDS: ASPIRIN 81 MG CHEW PO SCH (08:01)
[2017-01-04] MEDS: HYDROcodone/APAP 10-325MG 1 EACH TAB PO PRN ×2 (08:01→16:33)
[2017-01-04] MEDS: MECLIZINE 25 MG TAB PO SCH (08:01)
[2017-01-04] MEDS: CHOLECALCIFEROL 1,000 UNIT TAB PO SCH (08:02)
[2017-01-04 09:54] VITALS: BMI 24.1
--- NOTE | 2017-01-04 12:04 | DS ---
DATE OF ADMISSION: 01/03/2017 DATE OF DISCHARGE: 01/04/17 CONSULTATIONS: Cardiology, Dr. Gómez. Neurolgy DISCHARGE DIAGNOSES: 1. Syncope most likely vasovagal and chronic low blood pressure. 2. Rt leg shaky movement. r/o seizures. EEG was done. f/u report 2. History of migraine headaches. 3. History of bilateral pulmonary embolism. Currently on anticoagulation with Xarelto. 4. History of deep venous thrombosis/ pulmonary embolism times two. 5. Gastroesophageal reflux disease. 6. Hyperlipidemia. 7. Chest pain/angina history. 8. Hx of Cardiac cath. recommneded maximal medical Theraphy 8. Osteoporosis. 9. Prior history of bilateral mastoiditis. 10. Varicose veins. HOSPITAL COURSE: Ms. Saba is a 56-year-old male was admitted to hospital after syncopal episode after she used her bathroom and lost consciousness for a few minutes and woke up and called the ambulance. Her symptoms were most likely seems like vasovagal. CT head is negative. EKG troponins are negative. Patient had evidently had a cardiac catheterization a month back showed no obstruction and gas pumper saw the patient and recommended no further work-up at this time. Recommend to follow up with Dr. Delia Edwards as an outpatient. Pt. was seen by neurology due to rt .leg shaky movement complained by the pt. EEG was done but report is pending. no further episodes in the hospital. Otherwise, patient symptomatically much improved now. Denied any complaints of dizziness or lightheadedness. The patient can be discharged home in stable condition. DISCHARGE PHYSICAL EXAMINATION: 56-year-old female, lying in bed comfortably, awake, alert, oriented x3. No focal deficit. EXTREMITIES: ( ). VITALS: Blood pressure is 103/53, pulse is 62, respiration 18. Temperature afebrile. Pulse ox 95% on room air. LABORATORY DATA: Reviewed. Discharge physical examination done. Discharge medications include: ( ). MTDD
[2017-01-04] MEDS: BUTALB/APAP/CAFF 50-325-40MG TAB PO PRN (12:37)
[2017-01-04] MEDS ORDERED: NICOTINE 21MG/24HR PATCH TRANSDERM SCH (15:15)
--- NOTE | 2017-01-04 15:31 | P.PN ---
Subjective Principal diagnosis: Syncope this is a 56-year-old female being evaluated by the neurology service for an episode of syncope. She was brought by EMS to the emergency room at [facility]. She is known to our practice for history of chronic low back pain, chronic migraines, myofascial pain, central and peripheral vertigo, and a history of pulmonary embolism. She was seen earlier in the week in our office and was doing well. She says for the past couple days she has not been eating or drinking well. Earlier in the day she felt some nausea and lightheadedness. Watching a movie she went to the bathroom, and the next thing she remembers is being on the bathroom floor. She had hit her head. There was no bladder or bowel incontinence. The episode was not witnessed. Cardiology has evaluated and given a likely diagnosis of vasovagal syncope. She had a normal CT of the brain and cervical spine. Her blood pressure in the ER was quite low. She is resting comfortably in bed and just finished eating. She denies any significant persistent symptoms. She does note that she has had some what she describes as tremor of the right lower extremity lately. She says there have been a couple episodes of this since her time in the ER and on the floor. Objective - Vital Signs Vital signs: Vital Signs Temp 98.8 F 01/04/17 12:00 Pulse 62 01/04/17 12:00 Resp 18 01/04/17 12:00 BP 122/60 01/04/17 12:00 Pulse Ox 97 01/04/17 12:00 Intake & Output 01/03/17 01/04/17 01/04/17 18:59 06:59 18:59 Intake Total 900 300 500 Output Total 300 600 Balance 600 300 -100 Weight 67.9 kg 67.9 kg Intake: IV 900 300 Sodium Chloride 0.9% 1, 900 300 000 ml @ 100 mls/hr IV . Q10H STA Rx#:[id number] Oral 500 Output: Emesis 300 600 Other: Voiding Method Toilet Toilet Urinal Urinal # Voids 0 1 2 - Constitutional General appearance: Present: average body habitus, no acute distress - EENT Eyes: Present: PERRLA. Absent: abnormal pupil, ptosis - Neck Neck: Present: normal ROM. Absent: rigidity - Respiratory Respiratory: negative: prolonged expiration, prolonged inspiration - Cardiovascular Rhythm: regular - Neurologic Neurologic Comment(s): She is alert awake and oriented 3. Speech-language are normal. There is no lateralizing weakness. There is no facial asymmetry. Strength is full in bilateral upper lower extremities. There is no sensory deficit. No tremors or seizure-like activities are seen. - Labs CBC & Chem 7: 01/02/17 22:20 01/02/17 22:20 Assessment and Plan (1) Head contusion Status: Acute (2) Chronic vertigo Status: Chronic (3) Tremor Status: Suspected (4) Hypotension Status: Acute (5) Syncope Status: Acute Plan: She has likely suffered a vasovagal episode resulting in syncope and fall causing her head contusion. She has been cleared from a cardiology standpoint. Her carotid Doppler showed no hemodynamically snug against stenosis. An EEG has been ordered. She did mention some right leg tremor activity that is new to her, and we would like to rule out any potential seizure activity. Otherwise continue IV hydration and orthostatic checks. Continue neuro checks. We will continue to follow and make further recommendations based on the above studies. If her EEG is unremarkable she would be cleared from a neurological standpoint to follow up in our office. Furthermore if she has no further episodes of right leg symptoms as above, we could perform her EEG and an outpatient setting. I have reviewed the history and physical on the above patient. I have reviewed the above note, and agree.
[2017-01-04 16:57] VITALS: BP 116/60; PULSE 68; TEMP 98.2
--- NOTE | 2017-01-05 13:26 | DS ---
DATE OF ADMISSION: 01/03/2017 DATE OF DISCHARGE: 01/04/2017 ADDENDUM: DISCHARGE MEDICATIONS: 1. Meclizine 25 mg p.o. b.i.d. p.r.n. 2. Omeprazole 20 mg p.o. b.i.d. 3. Fioricet 1 tablet p.o. q.8 hourly p.r.n. for headache. 4. Atenolol 25 mg p.o. at bedtime. 5. Nitroglycerin 0.4 mg q.5 minutes p.r.n. for chest pain. 6. Wrights 10, 1 tablet p.o. t.i.d. p.r.n. for pain. 7. Xarelto 20 mg p.o. at bedtime. 8. Aspirin 81 mg p.o. daily. 9. Vitamin D3 2000 units p.o. daily. 10. Atorvastatin 20 mg p.o. at bedtime. 11. Topamax 50 mg p.o. b.i.d. 12. Cymbalta 60 mg p.o. at bedtime. Patient will be discharged home in stable condition. Activity as tolerated. Heart healthy diet. Follow with cardiology and follow-up with primary care physician in 1 to 3 days. Follow-up with Dr. Pinky Becker in 1 to 2 days. Note: Follow with either primary care physician or neurology clinic for EEG final report. Otherwise, patient is stable to be discharged home.
--- NOTE | 2017-01-07 09:01 | EEG ---
DATE OF SERVICE: 01/04/2017 REASON FOR TESTING: Syncope. AGE: 56Y DESCRIPTION OF THE PROCEDURE: This EEG was performed using a 21-channel digital electroencephalograph, following the international 10 - 20 system. DESCRIPTION OF THE RECORDING: From the beginning of the tracing, and with the patient's eyes closed, the background rhythm was mostly consisting of 9 Hz alpha frequency in the posterior occipital leads. No obvious asymmetry is seen. Photic stimulation was performed with a good driving response seen. No pathological waves were elicited. Hyperventilation was not performed. Occasional muscle artifacts and movement artifacts are seen. The patient remains awake throughout the tracing. No epileptiform discharges were seen. Her EKG lead showed a regular rate and rhythm. INTERPRETATION: This awake EEG can be considered within normal limits. There was no asymmetry seen. No epileptiform discharges were noticed. The absence of epileptiform discharges does not rule out the diagnosis of epilepsy, therefore, clinical correlation is recommended.
== END 2017-01-04 18:40 | disposition home or self-care (01) ==
LOC: EC 22:05 → 3OBS 01-03 02:05 → 6SEL 01-03 15:46
PROVIDERS: ADMIT Hospitalist; ATTEND Hospitalist
DX: R55 Syncope and collapse (principal); J44.9 Chronic obstructive pulmonary disease, unspecified; K21.9 Gastro-esophageal reflux disease without esophagitis; I95.9 Hypotension, unspecified; E78.5 Hyperlipidemia, unspecified; F41.9 Anxiety disorder, unspecified; F32.9 Major depressive disorder, single episode, unspecified; F17.200 Nicotine dependence, unspecified, uncomplicated; I83.90 Asymptomatic varicose veins of unspecified lower extremity; M81.0 Age-related osteoporosis without current pathological fracture; I20.9 Angina pectoris, unspecified; S00.93XA Contusion of unspecified part of head, initial encounter; H81.49 Vertigo of central origin, unspecified ear; H81.399 Other peripheral vertigo, unspecified ear; G89.29 Other chronic pain; M54.5 Low back pain; R07.89 Other chest pain; M54.2 Cervicalgia; M25.522 Pain in left elbow; Z86.718 Personal history of other venous thrombosis and embolism; Z91.048 Other nonmedicinal substance allergy status; Z86.711 Personal history of pulmonary embolism; Z88.8 Allergy status to other drugs, medicaments and biological substances; Z88.5 Allergy status to narcotic agent; Z79.899 Other long term (current) drug therapy; Z79.01 Long term (current) use of anticoagulants; Z82.3 Family history of stroke; Z82.5 Family history of asthma and other chronic lower respiratory diseases; Z82.49 Family history of ischemic heart disease and other diseases of the circulatory system; Z80.1 Family history of malignant neoplasm of trachea, bronchus and lung; W18.12XA Fall from or off toilet with subsequent striking against object, initial encounter; Y92.002 Bathroom of unspecified non-institutional (private) residence as the place of occurrence of the external cause; Z87.01 Personal history of pneumonia (recurrent); G43.909 Migraine, unspecified, not intractable, without status migrainosus
CPT/HCPCS: 96360 ×2; 96361 ×9; 99285; 36415; 95816; 93005; 80061; 80053; 82550 ×2; 82553 ×2; 84484 ×2; 85025; 85610; 85730; 81003; 71020; 73070; 93880; 72125; 70450; G0378 ×3; S4990; J2405; 96374

== ENCOUNTER → 2017-01-21 | Outpatient (CLI) | payer MEDICARE, OTHER ==
--- NOTE | 2017-01-21 13:39 | MR ---
EXAMINATION TYPE: MR lumbar spine wo con DATE OF EXAM: 01/21/2017 1:11 PM COMPARISON: MRI lumbar spine January 24, 2015. HISTORY: Back pain or lumbago per order. Severe pain for 30 years going into bilateral buttocks per p atient. TECHNIQUE: Multiplanar, multisequence imaging of the lumbar spine is performed without IV contrast. FINDINGS: Sagittal images of the lumbar spine show vertebral body heights and alignment to appear sat isfactory. There is redemonstration of disc desiccation L4-L5 and L5-S1 levels. New disc desiccation L3-L4 level is seen. There is increased signal posteriorly consistent with annular tear L4-L5 level r edemonstrated. There is stable mild disc space narrowing L5-S1 level. The conus medullaris remain iris ewhat low in position ending at superior L2 vertebral body level. No suspicious signal is present. N o suspicious clumping of lumbosacral nerve roots is seen. The bone marrow signal intensity is within normal limits. No significant spurring is noted. There is 8 mm Tarlov cyst S2 vertebral body level on sagittal image 4 redemonstrated. Axial images show mild facet degenerative changes bilaterally at T12-L1 through L2-L3 levels. Spinal canal is preserved and bilateral neural foramina are patent. Axial images at L3-L4 level show mild facet degenerative changes bilaterally. There is mild broad dis c bulge minimally effacing the anterior thecal sac. Bilateral neural foramina are patent. Findings ar e new versus prior. Axial images at L4-L5 level show mild facet degenerative changes bilaterally. There is broad disc bul ge effacing anterior thecal sac on axial image 7. There is mild bilateral anterior inferior neural fo raminal narrowing redemonstrated, left greater than right, no significant change from prior study is seen. Axial images at L5-S1 level show mild facet degenerative changes bilaterally. There is broad disc bul ge minimally effacing anterior thecal sac on axial image 2. There is mild bilateral anterior inferior neural foraminal narrowing. Findings have progressed from prior study. There is 8mm T2 hyperintense lesion lower pole level left kidney felt to reflect simple cyst on axial image 18 stable or slightly more prominent on current study. Common bile duct measures [address] on current study axial image 25 stable versus prior exam, more proximally it measures 10 to 11 mm in diameter. Mild dilatation of biliary system is noted back through CT November 2014. IMPRESSION: Some multilevel degenerative changes in the mid to lower lumbar spine as detailed above. Some progression in findings noted since prior study.
== END ==
LOC: RADMRIMAIN 12:35
PROVIDERS: ATTEND Psychiatry & Neurology Neurology
DX: M47.816 Spondylosis without myelopathy or radiculopathy, lumbar region (principal)
CPT/HCPCS: 72148

== ENCOUNTER 2017-03-16 11:42 | Emergency (ER) | payer MEDICARE, OTHER ==
[2017-03-16 12:11] VITALS: RESP 20
--- NOTE | 2017-03-16 12:25 | ED ---
Lower Extremity Injury HPI - General Chief Complaint: Extremity Injury, Lower Stated Complaint: Fall Time Seen by Provider: 03/16/17 12:14 Source: patient, RN notes reviewed, old records reviewed Mode of arrival: ambulatory Limitations: no limitations - History of Present Illness Initial Comments: This is a pleasant 56-year-old female presenting to the emergency Department chief complaint of left foot pain after she tripped 3 days ago. Patient reports that [place] skipping rocks tripped over a piece of grass and twisted her foot. Patient denies any ankle pain. She reports that she has been able to walk on it but she is sensitive bruising over her toes. Patient reports that she try to keep it up and elevated and iced as much as possible. Patient states that she wanted to get it checked out to me to there is no fractures. She reports that she is on several toe. Patient states that also when she fell she has noticed some bruising occurring over the left forearm. Patient reports some tenderness to palpation over the left elbow as well. He states that she developed for range of motion and just difficult with pain. Patient denies any previous injuries. She states that she is right- handed. Patient denies any recent fever, chills, shortness of breath, chest pain, back pain, abdominal pain, nausea vomiting, numbness or tingling, dysuria or hematuria, constipation or diarrhea, headaches or visual changes, or any other current symptoms - Related Data Home Medications Medication Instructions Recorded Confirmed Meclizine [Antivert] 25 mg PO BID 12/21/14 01/02/17 Omeprazole [PriLOSEC] 20 mg PO BID 12/21/14 01/02/17 Butalb/APAP/Caff 50-325-40Mg 1 tab PO Q8H PRN 09/28/15 01/02/17 [Fioricet 50-325-40] Atenolol [Tenormin] 25 mg PO HS 01/10/16 01/02/17 Nitroglycerin Sl Tabs [Nitrostat] 0.4 mg SUBLINGUAL Q5M PRN 01/25/16 01/02/17 HYDROcodone/APAP 10-325MG [[place] 1 tab PO TID PRN 06/02/16 01/02/17 10-325] Rivaroxaban [Xarelto] 20 mg PO HS 06/02/16 01/02/17 Cholecalciferol [Vitamin D3] 2,000 unit PO DAILY 07/02/16 01/02/17 Atorvastatin Calcium [Lipitor] 20 mg PO HS 09/17/16 01/02/17 Topiramate [Topamax] 50 mg PO BID 09/17/16 01/02/17 DULoxetine HCL [Cymbalta] 60 mg PO HS 12/27/16 01/02/17 Previous Rx's Medication Instructions Recorded Aspirin 81 mg PO DAILY #30 chew 06/07/16 Allergies Allergy/AdvReac Type Severity Reaction Status Date / Time hydrogen peroxide Allergy rash and Verified 03/16/17 12:11 skin burn metronidazole Allergy Unknown Verified 03/16/17 12:11 fentanyl AdvReac decreased Verified 03/16/17 12:11 bp isosorbide AdvReac Rapid Verified 03/16/17 12:11 Heart Rate Review of Systems ROS Statement: Those systems with pertinent positive or pertinent negative responses have been documented in the HPI. ROS Other: All systems not noted in ROS Statement are negative. Past Medical History Past Medical History: Chest Pain / Angina, COPD, Deep Vein Thrombosis (DVT), Eye Disorder, GERD/Reflux, Hyperlipidemia, Pneumonia, Pulmonary Embolus (PE) Additional Past Medical History / Comment(s): Chronic back and bilateral knee pain, "low BP", DVT right thigh, bilateral PEs in 2010 and 2014, migraines, osteoporosis, IBS, VERTIGO, DDD, cervical and back NERVE DAMAGE GETS TRIGGER POINT SHOTS, cataract L eye. History of Any Multi-Drug Resistant Organisms: None Reported Past Surgical History: Appendectomy, Cholecystectomy, Heart Catheterization Additional Past Surgical History / Comment(s): EGD/COLONOSCOPY/POLYPECTOMY- BENIGN, cardiac cath 06/10/16-normal, back/occipatel/bilateral knee injections. Past Anesthesia/Blood Transfusion Reactions: No Reported Reaction Additional Past Anesthesia/Blood Transfusion Reaction / Comment(s): Pt has clausterphobia. Past Psychological History: Anxiety, Bipolar, Depression, PTSD, Schizophrenia Additional Psychological History / Comment(s): Pt resides alone in an apt-has 1 pet cat., no steps. She has a cane she rarely uses. She does have a license but does'nt own a car. She gets to [facility] by walking or taking the bus. Smoking Status: Current every day smoker Past Alcohol Use History: None Reported Additional Past Alcohol Use History / Comment(s): STARTED SMOKING AT AGE 14(1973 ) was smoking 1 ppd but now a pack will last a week Past Drug Use History: None Reported Additional Drug Use History / Comment(s): Pt states she occasionally smokes marijuana to stimulate her appetite or to help her sleep.last used afternoon. - Past Family History Mother Family Medical History: Cancer, COPD, Hypertension Additional Family Medical History / Comment(s): Mother of LUNG CANCER at the age of 74yrs. Father Family Medical History: CVA/TIA, Hypertension Additional Family Medical History / Comment(s): Father had 2 CVAs and from the second one at the age of 52yrs. He was an alcoholic. General Exam - General Exam Comments Initial Comments: Pleasant 36-year-old female. No acute distress. Limitations: no limitations General appearance: alert, in no apparent distress Head exam: Present: atraumatic, normocephalic, normal inspection Eye exam: Present: normal appearance, PERRL, EOMI. Absent: scleral icterus, conjunctival injection, periorbital swelling ENT exam: Present: normal exam, mucous membranes moist Neck exam: Present: normal inspection. Absent: tenderness, meningismus, lymphadenopathy Respiratory exam: Present: normal lung sounds bilaterally. Absent: respiratory distress, wheezes, rales, rhonchi, stridor Cardiovascular Exam: Present: regular rate, normal rhythm, normal heart sounds. Absent: systolic murmur, diastolic murmur, rubs, gallop, clicks GI/Abdominal exam: Present: soft, normal bowel sounds. Absent: distended, tenderness, guarding, rebound, rigid Extremities exam: Present: normal inspection, full ROM, normal capillary refill. Absent: tenderness, pedal edema, joint swelling, calf tenderness Left Shoulder Exam: Present: normal inspection, full ROM Upper Arm exam: Present: normal inspection, full ROM Elbow exam: Present: full ROM, tenderness (Tenderness over the radial head.), ecchymosis. Absent: normal inspection Forearm Wrist exam: Present: ecchymosis (2 large contusions over the left forearm. One contusion the elbow overlying the radial head.). Absent: normal inspection Hand Wrist exam: Present: normal inspection, full ROM Neuro motor exam: Present: wrist extension intact, thumb opposition intact, thumb IP flexion intact, thumb adduction intact, fingers 2-5 abduction intact Vascular: Present: normal capillary refill Left Lower Leg exam: Present: normal inspection, full ROM Ankle exam: Present: normal inspection, full ROM Foot/Toe exam: Present: full ROM, tenderness (Patient has tenderness over the distal metatarsals 2 through 5.), swelling, ecchymosis (Patient has ecchymosis of her toes 2 through 5.). Absent: normal inspection Neurovascular tendon exam: Present: no vascular compromise Back exam: Present: normal inspection Neurological exam: Present: alert, oriented X3, CN II-XII intact Psychiatric exam: Present: normal affect, normal mood Skin exam: Present: warm, dry, intact, normal color. Absent: rash Course Vital Signs 03/16/17 03/16/17 12:08 13:05 Temperature 98.1 F 98.0 F Pulse Rate 96 82 Respiratory 20 20 Rate Blood Pressure 116/57 124/76 O2 Sat by Pulse 99 99 Oximetry Medical Decision Making - Medical Decision Making This is a pleasant 56-year-old female presenting to the emergency Department chief complaint of left foot pain after she tripped 3 days ago. Patient reports that she [place] skipping rocks tripped over a piece of grass and twisted her foot. Patient denies any ankle pain. She reports that she has been able to walk on it but she is sensitive bruising over her toes. Patient reports that she try to keep it up and elevated and iced as much as possible. Patient states that she wanted to get it checked out to me to there is no fractures. She reports that she is on several toe. Patient states that also when she fell she has noticed some bruising occurring over the left forearm. Patient reports some tenderness to palpation over the left elbow as well. He states that she developed for range of motion and just difficult with pain. Patient denies any previous injuries. X-rays are negative for any acute process. Patient will be given a history. Discussed point ice over nonweightbearing for the next few days. Instructed to continue to keep the foot elevated. Patient was given a referral for orthopedics. Patient understands treatment plan will comply. Return parameters were discussed. - Radiology Data Radiology results: report reviewed X-rays are negative for any acute osseous lesion. Strep and Dr. Rodriges Disposition Clinical Impression: Sprain of foot, left, Left elbow contusion Disposition: HOME SELF-CARE Condition: Good Instructions: Foot Contusion (ED), Foot Sprain (ED) Additional Instructions: Patient advised to rest, ice, elevate extremities. Wear compression bandages for the next 2-3 days. Return to emergency department if any alarming signs or symptoms occur. Follow-up with orthopedic if symptoms continue to persist. Referrals: Pinky Becker MD [Primary Care Provider] - 1-2 days Remigio Concepcion MD [STAFF PHYSICIAN] - 1-2 days Time of Disposition: 12:55
--- NOTE | 2017-03-16 12:44 | XR ---
EXAMINATION TYPE: XR foot complete LT DATE OF EXAM ORDERED: 03/16/2017 HISTORY: Pain. COMPARISON: None. FINDINGS: No fracture, dislocation or other acute osseous lesion is seen. IMPRESSION: NO ACUTE OSSEOUS LESION.
--- NOTE | 2017-03-16 12:45 | XR ---
EXAMINATION TYPE: XR elbow complete LT DATE OF EXAM ORDERED: 03/16/2017 HISTORY: Pain. COMPARISON: Previous study dated 01/02/2017. FINDINGS: No fracture, dislocation or elbow joint effusion is seen. IMPRESSION: NO ACUTE OSSEOUS LESION.
[2017-03-16 13:10] VITALS: BP 124/76; PULSE 82; TEMP 98
== END 2017-03-16 13:05 | disposition home or self-care (01) ==
LOC: EC 11:42
DX: S93.602A Unspecified sprain of left foot, initial encounter (principal); S50.02XA Contusion of left elbow, initial encounter; E78.5 Hyperlipidemia, unspecified; K21.9 Gastro-esophageal reflux disease without esophagitis; F31.9 Bipolar disorder, unspecified; F41.9 Anxiety disorder, unspecified; F17.200 Nicotine dependence, unspecified, uncomplicated; Z79.01 Long term (current) use of anticoagulants; Z79.899 Other long term (current) drug therapy; Z88.8 Allergy status to other drugs, medicaments and biological substances; Z86.718 Personal history of other venous thrombosis and embolism; Z86.711 Personal history of pulmonary embolism; X50.1XXA Overexertion from prolonged static or awkward postures, initial encounter; Y92.89 Other specified places as the place of occurrence of the external cause
CPT/HCPCS: 99284

== ENCOUNTER 2017-09-24 15:03 | Observation (INO) | payer MEDICARE, OTHER ==
[2017-09-24] MEDS ORDERED: MORPHINE SULFATE 5 MG/ML SYRINGE IV STA (15:30)
[2017-09-24] MEDS ORDERED: SODIUM CHLORIDE 0.9% 500 ML IV STA (15:30)
[2017-09-24] MEDS ORDERED: SODIUM CHLORIDE 0.9% 1,000 ML IV STA ×2 (15:30)
[2017-09-24] MEDS ORDERED: IPRATROPIUM-ALBUTEROL 3 ML NEB INHALATION STA (15:30)
[2017-09-24] MEDS ORDERED: KETOROLAC 30 MG/ML 1 ML VIAL IVP STA (15:30)
[2017-09-24] MEDS ORDERED: LORazepam 2 MG/ML INJ IV PRN (15:37)
[2017-09-24] MEDS ORDERED: LORazepam 2 MG/ML INJ IV STA (15:37)
--- NOTE | 2017-09-24 15:37 | ED ---
General Adult HPI - General Chief complaint: Chest Pain Stated complaint: chest pain Time Seen by Provider: 09/24/17 15:12 Source: patient, RN notes reviewed, old records reviewed Mode of arrival: wheelchair Limitations: no limitations - History of Present Illness Initial comments: This is a 57-year-old female ER for chest pain. History of chest pain history of angina. History of COPD, smoking. Patient currently denies fever cough congestion or travel history. Patient is on anticoagulation secondary to per previous history of PE. Patient denies recent heart evaluation. Patient states this pain is worse as before severe heaviness on the anterior aspect of her chest. - Related Data Home Medications Medication Instructions Recorded Confirmed Meclizine [Antivert] 25 mg PO BID 12/21/14 09/24/17 Butalb/APAP/Caff 50-325-40Mg 1 tab PO Q8H PRN 09/28/15 09/24/17 [Fioricet 50-325-40] Atenolol [Tenormin] 25 mg PO HS 01/10/16 09/24/17 Nitroglycerin Sl Tabs [Nitrostat] 0.4 mg SUBLINGUAL Q5M PRN 01/25/16 09/24/17 HYDROcodone/APAP 10-325MG [[place] 1 tab PO TID PRN 06/02/16 09/24/17 10-325] Rivaroxaban [Xarelto] 20 mg PO HS 06/02/16 09/24/17 Atorvastatin Calcium [Lipitor] 20 mg PO HS 09/17/16 09/24/17 Topiramate [Topamax] 50 mg PO BID 09/17/16 09/24/17 DULoxetine HCL [Cymbalta] 60 mg PO HS 12/27/16 09/24/17 Previous Rx's Medication Instructions Recorded Aspirin 81 mg PO DAILY #30 chew 06/07/16 Allergies Allergy/AdvReac Type Severity Reaction Status Date / Time hydrogen peroxide Allergy rash and Verified 09/24/17 15:22 skin burn metronidazole Allergy Unknown Verified 09/24/17 15:22 fentanyl AdvReac decreased Verified 09/24/17 15:22 bp isosorbide AdvReac Rapid Verified 09/24/17 15:22 Heart Rate Review of Systems ROS Statement: Those systems with pertinent positive or pertinent negative responses have been documented in the HPI. ROS Other: All systems not noted in ROS Statement are negative. Past Medical History Past Medical History: Chest Pain / Angina, COPD, Deep Vein Thrombosis (DVT), Eye Disorder, GERD/Reflux, Hyperlipidemia, Pneumonia, Pulmonary Embolus (PE) Additional Past Medical History / Comment(s): Chronic back and bilateral knee pain, "low BP", DVT right thigh, bilateral PEs in 2010 and 2015, migraines, osteoporosis, IBS, VERTIGO, DDD, cervical and back NERVE DAMAGE GETS TRIGGER POINT SHOTS, cataract L eye. History of Any Multi-Drug Resistant Organisms: None Reported Past Surgical History: Appendectomy, Cholecystectomy, Heart Catheterization Additional Past Surgical History / Comment(s): EGD/COLONOSCOPY/POLYPECTOMY- BENIGN, cardiac cath 06/10/16-normal, back/occipatel/bilateral knee injections. Past Anesthesia/Blood Transfusion Reactions: No Reported Reaction Additional Past Anesthesia/Blood Transfusion Reaction / Comment(s): Pt has clausterphobia. Past Psychological History: Anxiety, Bipolar, Depression, PTSD, Schizophrenia Smoking Status: Current every day smoker Past Alcohol Use History: None Reported Past Drug Use History: Marijuana - Past Family History Mother Family Medical History: Cancer, COPD, Hypertension Additional Family Medical History / Comment(s): Mother of LUNG CANCER at the age of 74yrs. Father Family Medical History: CVA/TIA, Hypertension Additional Family Medical History / Comment(s): Father had 2 CVAs and from the second one at the age of 52yrs. He was an alcoholic. General Exam Limitations: no limitations General appearance: alert, in no apparent distress, anxious Head exam: Present: atraumatic, normocephalic, normal inspection Eye exam: Present: normal appearance, PERRL, EOMI. Absent: scleral icterus, conjunctival injection, periorbital swelling ENT exam: Present: normal exam, mucous membranes moist Neck exam: Present: normal inspection. Absent: tenderness, meningismus, lymphadenopathy Respiratory exam: Present: normal lung sounds bilaterally. Absent: respiratory distress, wheezes, rales, rhonchi, stridor Cardiovascular Exam: Present: normal rhythm, tachycardia, normal heart sounds. Absent: systolic murmur, diastolic murmur, rubs, gallop, clicks GI/Abdominal exam: Present: soft, normal bowel sounds. Absent: distended, tenderness, guarding, rebound, rigid Extremities exam: Present: normal inspection, full ROM, normal capillary refill. Absent: tenderness, pedal edema, joint swelling, calf tenderness Back exam: Present: normal inspection Neurological exam: Present: alert, oriented X3, CN II-XII intact Psychiatric exam: Present: normal affect, normal mood Skin exam: Present: warm, dry, intact, normal color. Absent: rash Course Vital Signs 09/24/17 15:04 Temperature 98.3 F Pulse Rate 122 H Respiratory 24 Rate Blood Pressure 152/98 O2 Sat by Pulse 100 Oximetry - Reevaluation(s) Reevaluation #1: 09/24/17 15:46 Prior history was reviewed, patient is currently on anticoagulation EKG Findings - EKG Comments: EKG Findings:: EKG shows sinus tachycardia rate 111, OH 1 today, QRS 76, QTc 454 Medical Decision Making - Medical Decision Making 57 female DEL with recurrent chest pain, severe anterior chest pain tenderness. Patient's conservative management. Patient given pain control here in emergency room, feeling better, patient also having COPD exacerbation will admit for treatment of both - Radiology Data Radiology results: report reviewed (Chest x-ray is negative for acute disease), image reviewed Disposition Clinical Impression: Unstable angina pectoris, Chest pain, Acute bronchitis with COPD Disposition: ADMITTED IP TO THIS HOSP Condition: Fair Referrals: Pinky Becker MD [Primary Care Provider] - 1-2 days
[2017-09-24] MEDS ORDERED: NITROGLYCERIN SL TABS 0.4 MG TAB SUBLINGUAL PRN (15:48)
[2017-09-24] MEDS ORDERED: ASPIRIN 81 MG PO STA (15:48)
[2017-09-24] MEDS ORDERED: MORPHINE SULFATE 5 MG/ML SYRINGE IV PRN (15:48)
[2017-09-24 16:06] LABS: Basophils # (A) 0.1 k/uL (0-0.2); Basophils % (A) 1 %; Eosinophils # (A) 0.1 k/uL (0-0.7); Eosinophils % (A) 2 %; HDW 2.24; HGB 13.5 gm/dL (11.4-16.0); Luc # (Auto) 0.12; Luc % (Auto) 2; Lymphocytes # (A) 2.6 k/uL (1.0-4.8); Lymphocytes % (A) 38 %; MCH 29.3 pg (25.0-35.0); MCHC 32.1 g/dL (31.0-37.0); MCV 91.3 fL (80.0-100.0); Mean Platelet Volume 8.9; Monocytes # (A) 0.4 k/uL (0-1.0); Monocytes % (A) 6 %; Neutrophils # (A) 3.5 k/uL (1.3-7.7); Neutrophils % (A) 52 %; RDW 15.2 % (11.5-15.5); WBC 6.7 k/uL (3.8-10.6); WBC (Perox) 6.71
[2017-09-24 16:19] LABS: ALT 32 U/L (9-52); AST 17 U/L (14-36); Alkaline Phosphatase 81 U/L (38-126); Anion Gap 12 mmol/L; Blood Urea Nitrogen 9 mg/dL (7-17); Calcium 9.7 mg/dL (8.4-10.2); Carbon Dioxide 23 mmol/L (22-30); Chloride 103 mmol/L (98-107); Glucose 99 mg/dL (74-99); Magnesium 2.1 mg/dL (1.6-2.3); Non-African American GFR(MDRD) >60 (>60 ml/min/1.73 sqM); Sodium 138 mmol/L (137-145); Total Bilirubin 0.2 mg/dL (0.2-1.3); Total Protein 6.7 g/dL (6.3-8.2)
[2017-09-24 16:29] LABS: Creatine Kinase 65 U/L (30-135)
[2017-09-24 16:34] LABS: Potassium 3.7 mmol/L (3.5-5.1)
[2017-09-24 16:38] LABS: Partial Thromboplastin Time 24.5 sec (22.0-30.0)
--- NOTE | 2017-09-24 16:39 | XR ---
EXAMINATION TYPE: XR chest 2V DATE OF EXAM: 09/24/2017 COMPARISON: 05/28/2017 HISTORY: COPD and pulmonary embolus TECHNIQUE: Frontal and lateral views of the chest are obtained. FINDINGS: There is no focal air space opacity, pleural effusion, or pneumothorax seen. The cardiac silhouette size is within normal limits. The osseous structures are intact. IMPRESSION: No acute cardiopulmonary process.
[2017-09-24 16:40] LABS: Creatine Kinase MB 0.5 ng/mL (0.0-2.4); Troponin I <0.012 ng/mL (0.000-0.034)
[2017-09-24] MEDS: SODIUM CHLORIDE 0.9% 1,000 ML IV SCH (17:28)
[2017-09-24] MEDS ORDERED: BUTALB/APAP/CAFF 50-325-40MG TAB PO PRN (18:16)
[2017-09-24] MEDS ORDERED: ALPRAZolam 0.25 MG TAB PO PRN (18:19)
[2017-09-24] MEDS ORDERED: TEMAZEPAM 15 MG CAP PO PRN (18:19)
--- NOTE | 2017-09-24 18:44 | HP ---
HISTORY AND PHYSICAL DATE OF SERVICE: 09/24/2017. CHIEF COMPLAINT: Chest pain. HISTORY OF PRESENT ILLNESS: This 57-year-old woman with a past medical history of multiple medical problems including chest pain, COPD, DVT, history of angina, pulmonary embolism being followed by Dr. Pinky Becker in the outpatient setting was complaining of left-sided chest pain. The pain was felt in the anterior part of the chest radiating to the back. The most stabbing character but this morning the left shoulder also became heavy and sort of numb according to the patient and came to [facility] and was admitted for further evaluation and treatment. Patient apparently had a stress test about 1 year ago, which is negative. The patient is following up with Dr. Delia Edwards in the outpatient setting. There is no history of fever, rigors. No headache, loss of consciousness or seizures. PAST MEDICAL HISTORY: History of COPD, DVT, GERD, pneumonia, pulmonary embolism, anxiety, bipolar depression, PTSD and schizophrenia. FAMILY HISTORY: History of cancer, COPD, hypertension, lung cancer. SOCIAL HISTORY: History of THC, history of smoking. REVIEW OF SYSTEMS: ENT: No diminished vision. No diminished vision. Cardiovascular as mentioned earlier. GI no nausea. no dysuria. Nervous system: No numbness, weakness. Allergy/Immunology: No asthma or hayfever. Musculoskeletal: As mentioned earlier. Hematology/Oncology: As mentioned earlier. Endocrine: No history of diabetes, hypothyroidism. Constitutional: As mentioned earlier. Dermatology: Negative. Rheumatology: Negative. Psychiatric: As mentioned earlier. PHYSICAL EXAMINATION: Alert and oriented times three. Pulse is 75, blood pressure 130/62, respiration 18, temperature normal. Pulse ox 98% on 2 L. HEENT: Conjunctivae normal. Oral mucosa moist. Neck is no jugular venous distention. No carotid bruit. No lymph node enlargement. Cardiovascular system: S1, S2 muffled. No S3, no S4. RESPIRATORY: Breath sounds diminished in the bases. A few scattered rhonchi and crackles. ABDOMEN: Soft, nontender. No mass palpable. Legs no edema and no swelling. NERVOUS SYSTEM: Higher functions as mentioned earlier. Moves all four extremities. No focal motor or sensory deficits. Lymphatics: No lymph nodes palpable in the neck, axillae or groin. Skin: No ulcer, rash or bleeding. LABS: CBC within normal limits. ASSESSMENT: 1. Left-sided chest pain rule out unstable angina possibly musculoskeletal pain. 2. History of cardiac arrest previously and angina. 3. History of deep vein thrombosis. 4. Chronic obstructive pulmonary disease. 5. Gastroesophageal reflux disease. 6. Pneumonia. 7. Hyperlipidemia. 8. History of pulmonary embolism. 9. On Xarelto. 10.History of deep vein thrombosis. 11.History of vertigo. 12.History of anxiety, bipolar depression. 13.PTSD. 14.Schizophrenia. 15.History of THC. RECOMMENDATIONS AND DISCUSSION: In this 57-year-old woman who presented with multiple complex medical issues, we will monitor the patient closely, continue the current medications, continue symptomatic treatment. Otherwise at this time I recommend cardiology consultation. Otherwise, a set of troponins. Symptomatic treatment provided. Prognosis guarded because of multiple complex medical issues. Further recommendations to follow. See orders for details. We initiate home medications. MMODL / IJN: [id number] /
[2017-09-24] MEDS ORDERED: ATORVASTATIN 20 MG TAB PO SCH (21:00)
[2017-09-24] MEDS ORDERED: RIVAROXABAN 10 MG TAB PO SCH (21:00)
[2017-09-24] MEDS ORDERED: ATENOLOL 25 MG TAB PO SCH (21:00)
[2017-09-24] MEDS ORDERED: DULoxetine HCL 60 MG CAPSULE.DR PO SCH (21:00)
[2017-09-24] MEDS: TOPIRAMATE 25 MG TAB PO SCH (21:12)
[2017-09-24] MEDS: HYDROcodone/APAP 10-325MG 1 EACH TAB PO PRN (21:12)
[2017-09-24] MEDS: MECLIZINE 25 MG TAB PO SCH (21:13)
[2017-09-24 21:20] LABS: Appearance,Urine Clear (Clear); Bilirubin,Urine Negative (Negative); Glucose,Urine (UA) Negative (Negative); Ketones,Urine Negative (Negative); Leukocyte Esterase,Urine Negative (Negative); Nitrite,Urine Negative (Negative); PH, Urine 5.5 (5.0-8.0); Protein,Urine Negative (Negative); Specific Gravity,Urine 1.009 (1.001-1.035); UA Billing (MACRO vs. MICRO) CHEM; Urobilinogen,Urine <2.0 mg/dL (<2.0)
[2017-09-24 22:51] LABS: Creatine Kinase 52 U/L (30-135)
[2017-09-24 23:04] LABS: Creatine Kinase MB 0.5 ng/mL (0.0-2.4); Troponin I <0.012 ng/mL (0.000-0.034)
[2017-09-25 04:38] VITALS: RESP 18
[2017-09-25 04:41] LABS: Basophils # (A) 0.1 k/uL (0-0.2); Basophils % (A) 1 %; CH 29.9; CHCM 33.1; Eosinophils # (A) 0.1 k/uL (0-0.7); Eosinophils % (A) 2 %; HCT 32.8 % (34.0-46.0); HDW 2.37; Luc # (Auto) 0.13; Luc % (Auto) 2; Lymphocytes # (A) 2.6 k/uL (1.0-4.8); Lymphocytes % (A) 49 %; MCH 29.1 pg (25.0-35.0); MCV 90.9 fL (80.0-100.0); Mean Platelet Volume 8.4; Monocytes # (A) 0.3 k/uL (0-1.0); Monocytes % (A) 6 %; Neutrophils # (A) 2.1 k/uL (1.3-7.7); Neutrophils % (A) 40 %; RBC 3.61 m/uL (3.80-5.40); RDW 13.9 % (11.5-15.5); WBC 5.4 k/uL (3.8-10.6); WBC (Perox) 5.59
[2017-09-25 04:43] LABS: HGB 10.5 gm/dL (11.4-16.0)
[2017-09-25 04:54] LABS: Anion Gap 3 mmol/L; Blood Urea Nitrogen 12 mg/dL (7-17); Calcium 8.6 mg/dL (8.4-10.2); Carbon Dioxide 23 mmol/L (22-30); Chloride 110 mmol/L (98-107); Cholesterol 108 mg/dL (<200); Glucose 83 mg/dL (74-99); HDL Cholesterol 41 mg/dL (40-60); Non-African American GFR(MDRD) >60 (>60 ml/min/1.73 sqM); Potassium 4.7 mmol/L (3.5-5.1); Sodium 136 mmol/L (137-145)
[2017-09-25 04:58] LABS: Creatine Kinase 48 U/L (30-135)
[2017-09-25 05:11] LABS: Troponin I <0.012 ng/mL (0.000-0.034)
[2017-09-25] MEDS: SODIUM CHLORIDE 0.9% 1,000 ML IV SCH (05:53)
[2017-09-25] MEDS ORDERED: ASPIRIN 325 MG TAB PO SCH (09:00)
[2017-09-25] MEDS ORDERED: ASPIRIN 81 MG PO SCH (09:00)
[2017-09-25] MEDS: MECLIZINE 25 MG TAB PO SCH (09:36)
[2017-09-25] MEDS: TOPIRAMATE 25 MG TAB PO SCH (09:36)
[2017-09-25] MEDS: HYDROcodone/APAP 10-325MG 1 EACH TAB PO PRN (11:34)
--- NOTE | 2017-09-25 11:59 | P.CRDCN ---
History of Present Illness Consult date: 09/25/17 History of present illness: Mrs. Saba is a 57-year-old female with past medical history significant for COPD, DVT, PE, HLD, tobacco abuse, hypertension and anxiety/ bipolar/schizophrenia/PTSD. She has followed in the office with Dr. Keenan in the past. We have been asked to see her in consultation for complaints of chest pain. She states she started having chest pain 2 days ago. It is described as a heavy feeling in her chest that last approximately 5 minutes and subsides on its own. She has associated shortness of breath, dizziness, diaphoresis, nausea , vomiting and palpitations. She states she has been under extreme stress lately and the pain comes on after she is thinking about things in her life. She recently underwent a cardiac cath 05/2016 which revealed clear coronary arteries with spasm of distal LAD that was treated with imdur. She states she was unable to tolerate the imdur secondary to causing extreme shaking and tremors. She was prescribed SL NTG but didn't try taking any during this episode. Her last echocardiogram was 09/2015 which revealed preserved LV function with EF 50-55% and mild MR, TR and pulmonary hypertension. EKG on arrival reveals sinus mechanism with evidence of right atrial enlargement and non-specific T-wave abnormalities in inferior leads. Chest xray negative for an acute cardiopulmonary process. Laboratory data was reviewed, hgb 10.5, plt 158, BUN 12, Cr 0.9, potassium 4.7, magnesium 2.1, cardiac enzymes negative x3. Current cardiac medications include aspirin 81 mg daily, xarelto 20 mg daily, atorvastatin 20 mg daily and atenolol 20 mg daily. She states she is compliant with her meds and never misses her xarelto. Her last PE was 09/2015 and it occurred after xarelto was discontinued for a brief period secondary to frequent falls. Review of Systems At the time of my exam CONSTITUTIONAL: Denies fever. Complains of chills. EYES: Denies blurred vision. Denies vision changes. Denies eye pain. EARS, NOSE, MOUTH & THROAT: Denies headache. Denies sore throat. Denies ear pain. CARDIOVASCULAR: Complains of reproducible chest pain with intermittent shortness of breath. Denies orthopnea. Denies PND. Denies palpitations. RESPIRATORY: Denies cough. GASTROINTESTINAL: Denies abdominal pain. Denies diarrhea. Denies constipation. Complains of nausea with no vomiting so far today. MUSCULOSKELETAL: Denies myalgias. INTEGUMENTARY: Denies pruitis. Denies rash. NEUROLOGIC: Denies numbness. Denies tingling. Denies weakness. PSYCHIATRIC: Denies anxiety. Denies depression. ENDOCRINE: Denies fatigue. Denies weight change. Denies polydipsia. Denies polyurina. GENITOURINARY: Denies burning, hematuria or urgency with micturation. HEMATOLOGIC: Denies history of anemia. Denies bleeding. Past Medical History Past Medical History: Chest Pain / Angina, COPD, Deep Vein Thrombosis (DVT), Eye Disorder, GERD/Reflux, Hyperlipidemia, Pneumonia, Pulmonary Embolus (PE) Additional Past Medical History / Comment(s): Chronic back and bilateral knee pain, "low BP", DVT right thigh, bilateral PEs in 2010 and 2014, migraines, osteoporosis, IBS, VERTIGO, DDD, cervical and back NERVE DAMAGE GETS TRIGGER POINT SHOTS, cataract L eye.past stress test. History of Any Multi-Drug Resistant Organisms: None Reported Past Surgical History: Appendectomy, Cholecystectomy, Heart Catheterization Additional Past Surgical History / Comment(s): EGD/COLONOSCOPY/POLYPECTOMY- BENIGN, cardiac cath 06/10/16-normal, back/bilateral knee injections. epidural steroid inj -back Past Anesthesia/Blood Transfusion Reactions: No Reported Reaction Additional Past Anesthesia/Blood Transfusion Reaction / Comment(s): Pt has clausterphobia. Smoking Status: Current every day smoker - Past Family History Mother Family Medical History: Cancer, COPD, Hypertension Additional Family Medical History / Comment(s): Mother of LUNG CANCER at the age of 74yrs. Father Family Medical History: CVA/TIA, Hypertension Additional Family Medical History / Comment(s): Father had 2 CVAs and from the second one at the age of 52yrs. He was an alcoholic. Medications and Allergies Home Medications Medication Instructions Recorded Confirmed Type Meclizine [Antivert] 25 mg PO BID 12/21/14 09/24/17 History Butalb/APAP/Caff 50-325-40Mg 1 tab PO Q8H PRN 09/28/15 09/24/17 History [Fioricet 50-325-40] Atenolol [Tenormin] 25 mg PO HS 01/10/16 09/24/17 History Nitroglycerin Sl Tabs [Nitrostat] 0.4 mg SUBLINGUAL Q5M PRN 01/25/16 09/24/17 History HYDROcodone/APAP 10-325MG [[place] 1 tab PO TID PRN 06/02/16 09/24/17 History 10-325] Rivaroxaban [Xarelto] 20 mg PO HS 06/02/16 09/24/17 History Aspirin 81 mg PO DAILY #30 chew 06/07/16 09/24/17 Rx Atorvastatin Calcium [Lipitor] 20 mg PO HS 09/17/16 09/24/17 History Topiramate [Topamax] 50 mg PO BID 09/17/16 09/24/17 History DULoxetine HCL [Cymbalta] 60 mg PO HS 12/27/16 09/24/17 History Allergies Allergy/AdvReac Type Severity Reaction Status Date / Time hydrogen peroxide Allergy rash and Verified 09/24/17 15:22 skin burn metronidazole Allergy Unknown Verified 09/24/17 15:22 fentanyl AdvReac decreased Verified 09/24/17 15:22 bp isosorbide AdvReac Rapid Verified 09/24/17 15:22 Heart Rate Physical Exam Vitals: Vital Signs Temp Pulse Pulse Resp BP BP BP 09/25/17 07:53 97.4 F L 73 18 98/54 09/25/17 04:00 98 F 70 18 96/53 09/25/17 03:50 16 09/25/17 00:00 98.3 F 77 16 91/42 09/24/17 23:32 18 09/24/17 20:00 18 09/24/17 16:49 88 09/24/17 16:25 86 09/24/17 16:02 75 18 137/62 09/24/17 15:04 98.3 F 122 H 24 152/98 Pulse Ox 09/25/17 07:53 98 09/25/17 04:00 97 09/25/17 03:50 09/25/17 00:00 96 09/24/17 23:32 09/24/17 20:00 09/24/17 16:49 09/24/17 16:25 09/24/17 16:02 99 09/24/17 15:04 100 Intake and Output 09/24/17 09/25/17 09/25/17 22:59 06:59 14:59 Intake Total 360 1050 Balance 360 1050 Intake: IV 800 Sodium Chloride 0.9% 1, 800 000 ml @ 100 mls/hr IV . Q10H [facility] Rx#:[id number] Oral 360 250 Other: Voiding Method Toilet Toilet # Voids 1 2 Weight 61.235 kg Blood pressure 98/54 with a heart rate 73. GENERAL: This is a 57-year-old female in no apparent distress at the time of my examination. Appears older than stated age. HEENT: Head is atraumatic, normocephalic. Pupils are equal, round. Sclerae anicteric. Conjunctivae are clear. Mucous membranes of the mouth are moist. Neck is supple. There is no jugular venous distention. No carotid bruit is heard. LUNGS: Clear to auscultation no wheezes, rales or rhonchi. No chest wall tenderness is noted on palpation or with deep breathing. HEART: Regular rate and rhythm without murmurs, rubs or gallops. S1 and S2 heard. ABDOMEN: Soft, nontender. Bowel sounds are heard. No organomegaly noted. EXTREMITIES: 2+ peripheral pulses with no evidence of peripheral edema and no calf tenderness noted. NEUROLOGIC: Patient is awake, alert and oriented x3. Results 09/25/17 04:13 09/25/17 04:13 Cardiac Enzymes 09/24/17 09/24/17 09/24/17 Range/Units 15:50 15:50 22:17 AST 17 (14-36) U/L CK-MB (CK-2) 0.5 0.5 (0.0-2.4) ng/mL Troponin I <0.012 <0.012 (0.000-0.034) ng/mL 09/25/17 Range/Units 04:13 AST (14-36) U/L CK-MB (CK-2) 1.0 (0.0-2.4) ng/mL Troponin I <0.012 (0.000-0.034) ng/mL Coagulation 09/24/17 Range/Units 15:50 PT 10.0 (9.0-12.0) sec APTT 24.5 (22.0-30.0) sec Lipids 09/25/17 Range/Units 04:13 Triglycerides 45 (<150) mg/dL Cholesterol 108 (<200) mg/dL HDL Cholesterol 41 (40-60) mg/dL CBC 09/24/17 09/25/17 Range/Units 15:50 04:13 WBC 6.7 5.4 (3.8-10.6) k/uL RBC 4.60 3.61 L (3.80-5.40) m/uL Hgb 13.5 10.5 L D (11.4-16.0) gm/dL Hct 42.0 32.8 L (34.0-46.0) % Plt Count 192 158 (150-450) k/uL Comprehensive Metabolic Panel 09/24/17 09/25/17 Range/Units 15:50 04:13 Sodium 138 136 L (137-145) mmol/L Potassium 3.7 4.7 (3.5-5.1) mmol/L Chloride 103 110 H (98-107) mmol/L Carbon Dioxide 23 23 (22-30) mmol/L BUN 9 12 (7-17) mg/dL Creatinine 0.80 0.90 (0.52-1.04) mg/dL Glucose 99 83 (74-99) mg/dL Calcium 9.7 8.6 (8.4-10.2) mg/dL AST 17 (14-36) U/L ALT 32 (9-52) U/L Alkaline Phosphatase 81 (38-126) U/L Total Protein 6.7 (6.3-8.2) g/dL Albumin 4.0 (3.5-5.0) g/dL Current Medications Generic Name Dose Route Start Last Admin Trade Name Freq PRN Reason Stop Dose Admin Acetaminophen/Butalbital/Caffeine 1 each 09/24/17 18:16 Fioricet 50-325-40 PO Q8H PRN Migraine Headache Hydrocodone Bitart/Acetaminophen 1 each 09/24/17 18:16 09/24/17 21:12 Ronald 10 PO 1 each TID PRN Administration Pain Alprazolam 0.25 mg 09/24/17 18:19 Xanax PO TID PRN Anxiety Aspirin 81 mg 09/25/17 09:00 Aspirin PO DAILY RHEA Atenolol 25 mg 09/24/17 21:00 09/24/17 21:13 Tenormin PO 25 mg HS RHEA Administration Atorvastatin Calcium 20 mg 09/24/17 21:00 09/24/17 21:13 Lipitor PO 20 mg HS RHEA Administration Duloxetine HCl 60 mg 09/24/17 21:00 09/24/17 21:13 Cymbalta PO 60 mg HS RHEA Administration Sodium Chloride 1,000 mls @ 100 mls/hr 09/24/17 16:00 09/25/17 05:53 Saline 0.9% IV Not Given .Q10H RHEA Lorazepam 1 mg 09/24/17 15:37 09/24/17 21:13 Ativan IV 1 mg Q4HR PRN Administration Anxiety Meclizine HCl 25 mg 09/24/17 21:00 09/24/17 21:13 Antivert PO 25 mg BID RHEA Administration Morphine Sulfate 4 mg 09/24/17 15:48 Morphine Sulfate IV Q5M PRN Chest Pain Nitroglycerin 0.4 mg 09/24/17 15:48 Nitrostat SUBLINGUAL Q5M PRN Chest Pain Rivaroxaban 20 mg 09/24/17 21:00 09/24/17 21:13 Xarelto PO 20 mg HS RHEA Administration Temazepam 15 mg 09/24/17 18:19 Restoril PO HS PRN Insomnia Topiramate 50 mg 09/24/17 21:00 09/24/17 21:12 Topamax PO 50 mg BID RHEA Administration Intake and Output 09/24/17 09/25/17 09/25/17 22:59 06:59 14:59 Intake Total 360 1050 Balance 360 1050 Intake: IV 800 Sodium Chloride 0.9% 1, 800 000 ml @ 100 mls/hr IV . Q10H [facility] Rx#:[id number] Oral 360 250 Other: Voiding Method Toilet Toilet # Voids 1 2 Weight 61.235 kg 09/25/17 04:13 09/25/17 04:13 Assessment and Plan Assessment: ASSESSMENT 1. Chest pain, atypical with normal cardiac catheterization just over 1-year ago 2. Dyslipidemia 3. Hypertension 4. Chronic tobacco abuse 5. History of DVT and PE, chronically on anti-coagulation PLAN Obtain 2D echocardiogram and doppler study to assess cardiac structure and function. Her symptoms are very atypical and could be related to a stress reaction. Increase activity as tolerated and she is stable from a cardiac perspective. We will start cardizem and discontinue atenolol for coronary artery spasms since she cannot tolerate imdur. This has been discussed with the patient. Smoking cessation discussed. Thank you kindly for this consultation. She can follow up with her primary care physician upon discharge. Nurse Practitioner note has been reviewed, I agree with a documented findings and plan of care. Patient was seen and examined.
[2017-09-25] MEDS ORDERED: DILTIAZEM CD 120 MG CAP.ER.24H PO SCH (12:00)
--- NOTE | 2017-09-25 13:49 | ECHOF ---
Referral Reason:cp MEASUREMENTS -------- HEIGHT: 165.1 cm WEIGHT: 61.2 kg BP: RVIDd: 2.3 cm (< 3.3) IVSd: 0.9 cm (0.6 - 1.1) LVIDd: 4.2 cm (3.9 - 5.3) LVPWd: 0.9 cm (0.6 - 1.1) IVSs: 1.0 cm LVIDs: 3.5 cm LVPWs: 1.2 cm LA Diam: 3.1 cm (2.7 - 3.8) Ao Diam: 3.2 cm (2.0 - 3.7) AV Cusp: 1.9 cm (1.5 - 2.6) LA Diam: 3.6 cm (2.7 - 3.8) MV EXCURSION: 20.347 mm (> 18.000) MV EF SLOPE: 81 mm/s (70 - 150) EPSS: 0.2 cm MV E Inderjit: 0.92 m/s MV DecT: 194 ms MV A Inderjit: 0.79 m/s MV E/A Ratio: 1.16 AR PHT: 392 ms RAP: 5.00 mmHg RVSP: 25.41 mmHg FINDINGS -------- Sinus rhythm. This was a technically good study. LV size, wall thickness and systolic function are normal, with an EF greater than 55%. The left bakari tricular size is normal. The right ventricle is normal in size. The left atrial size is normal. The right atrial size is normal. There is mild aortic regurgitation. Mild mitral annular calcification present. Mild mitral regurgitation is present. Mild tricuspid regurgitation present. There is no evidence of pulmonary hypertension. The right v entricular systolic pressure, as measured by Doppler, is 25.41mmHg. Trace/mild (physiologic) pulmonic regurgitation. Echo free space represents a pericardial fat pad. CONCLUSIONS -------- 1. LV size, wall thickness and systolic function are normal, with an EF greater than 55%. 2. The left ventricular size is normal. 3. There is mild aortic regurgitation. 4. Mild mitral annular calcification present. 5. Mild mitral regurgitation is present. 6. Mild tricuspid regurgitation present. 7. There is no evidence of pulmonary hypertension. 8. The right ventricular systolic pressure, as measured by Doppler, is 25.41mmHg. 9. Trace/mild (physiologic) pulmonic regurgitation. 10. Echo free space represents a pericardial fat pad. STAKES PLAYER: Romy Arauz RDCS
[2017-09-25 15:22] VITALS: BP 102/49; PULSE 68; TEMP 98.2
--- NOTE | 2017-09-25 23:25 | P.DS ---
Providers Date of admission: 09/24/17 15:48 Attending physician: Jennifer Choi Consults: 09/24/17 15:48 Consult Physician Urgent Consulting Provider: Mukesh Gómez Consult Reason/Comments: cp Do you want consulting provider notified?: Yes Primary care physician: [facility] Course: This 57-year-old woman with a past medical history multiple medical problems was admitted with the features of chest pain. Myocardial infarction ruled out. Cardiology saw the patient. The patient was thought to have muscle skeletal chest pain. Treated symptomatically. Patient improved significantly. Baseline labs are within normal limits. D-dimer was negative. Patient was also had a features of bronchitis. Recommend smoking cessation as well as some bronchodilator cerebritis. On exam vitals are stable. Cardio S1 and S2 normal. Respirator system few scattered rhonchi. Abdomen soft nontender. Final diagnosis 1. Left-sided chest pain possibly muscle skeletal pain. Myocardial infarction ruled out. 2. History of cardiac cath previously and angina. 3. History of DVT. 4. COPD. 5. GERD. 6. History of pneumonia. 7. History of hyperlipidemia. 8. History of pulmonary embolus. 9. On xarelto 10. History of DVT. Patient Condition at Discharge: Fair Plan - Discharge Summary Discharge Rx Participant: No New Discharge Prescriptions: New Diltiazem Cd [Cardizem CD] 120 mg PO DAILY #30 cap.er.24h Sulfamethox-Tmp 800-160Mg [Bactrim DS 800-160 mg] 1 tab PO Q12HR #10 tab LORazepam [Ativan] 0.5 mg PO TID PRN #10 tab PRN Reason: Anxiety Budesonide-Formot 160-4.5 Mcg [Symbicort 160-4.5 Mcg Inhaler] 2 puff INHALATION BID #1 inhaler Albuterol Sulfate [Proventil Hfa] 2 puff INHALATION QID #1 inhaler Continue Meclizine [Antivert] 25 mg PO BID Butalb/APAP/Caff 50-325-40Mg [Fioricet 50-325-40] 1 tab PO Q8H PRN PRN Reason: Migraine Headache Nitroglycerin Sl Tabs [Nitrostat] 0.4 mg SUBLINGUAL Q5M PRN PRN Reason: Pain Rivaroxaban [Xarelto] 20 mg PO HS HYDROcodone/APAP 10-325MG [[place] 10-325] 1 tab PO TID PRN PRN Reason: Pain Aspirin 81 mg PO DAILY #30 chew Atorvastatin Calcium [Lipitor] 20 mg PO HS Topiramate [Topamax] 50 mg PO BID DULoxetine HCL [Cymbalta] 60 mg PO HS Discharge Medication List Meclizine [Antivert] 25 mg PO BID 12/21/14 [History] Butalb/APAP/Caff 50-325-40Mg [Fioricet 50-325-40] 1 tab PO Q8H PRN 09/28/15 [ History] Nitroglycerin Sl Tabs [Nitrostat] 0.4 mg SUBLINGUAL Q5M PRN 01/25/16 [History] HYDROcodone/APAP 10-325MG [[place] 10-325] 1 tab PO TID PRN 06/02/16 [History] Rivaroxaban [Xarelto] 20 mg PO HS 06/02/16 [History] Aspirin 81 mg PO DAILY #30 chew 06/07/16 [Rx] Atorvastatin Calcium [Lipitor] 20 mg PO HS 09/17/16 [History] Topiramate [Topamax] 50 mg PO BID 09/17/16 [History] DULoxetine HCL [Cymbalta] 60 mg PO HS 12/27/16 [History] Albuterol Sulfate [Proventil Hfa] 2 puff INHALATION QID #1 inhaler 09/25/17 [Rx] Budesonide-Formot 160-4.5 Mcg [Symbicort 160-4.5 Mcg Inhaler] 2 puff INHALATION BID #1 inhaler 09/25/17 [Rx] Diltiazem Cd [Cardizem CD] 120 mg PO DAILY #30 cap.er.24h 09/25/17 [Rx] LORazepam [Ativan] 0.5 mg PO TID PRN #10 tab 09/25/17 [Rx] Sulfamethox-Tmp 800-160Mg [Bactrim DS 800-160 mg] 1 tab PO Q12HR #10 tab [Rx] Follow up Appointment(s)/Referral(s): Pinky Becker MD [Primary Care Provider] - 3 Days Ambulatory/Diagnostic Orders: Complete Blood Count w/diff [LAB.AMB] Time Frame: 3 Days, Location: Determined By Patient Activity/Diet/Wound Care/Special Instructions: Pending cardiology clearance. COnfirm cardiology F/U apt. prior to dc no smoking Diet: cardiac Activity: limited TIll F/U Discharge Disposition: HOME SELF-CARE
== END 2017-09-25 18:50 | disposition home or self-care (01) ==
LOC: EC 15:03 → 3OBS 15:48
PROVIDERS: ADMIT Hospitalist; ATTEND Hospitalist
DX: R07.89 Other chest pain (principal); J44.9 Chronic obstructive pulmonary disease, unspecified; K21.9 Gastro-esophageal reflux disease without esophagitis; E78.5 Hyperlipidemia, unspecified; F17.200 Nicotine dependence, unspecified, uncomplicated; M81.0 Age-related osteoporosis without current pathological fracture; K58.9 Irritable bowel syndrome, unspecified; M50.30 Other cervical disc degeneration, unspecified cervical region; G43.909 Migraine, unspecified, not intractable, without status migrainosus; G89.29 Other chronic pain; F43.10 Post-traumatic stress disorder, unspecified; F20.9 Schizophrenia, unspecified; F41.9 Anxiety disorder, unspecified; I10 Essential (primary) hypertension; F31.9 Bipolar disorder, unspecified; Z86.718 Personal history of other venous thrombosis and embolism; Z86.711 Personal history of pulmonary embolism; Z87.01 Personal history of pneumonia (recurrent); Z79.82 Long term (current) use of aspirin; Z79.899 Other long term (current) drug therapy; Z88.5 Allergy status to narcotic agent; Z79.01 Long term (current) use of anticoagulants; Z88.8 Allergy status to other drugs, medicaments and biological substances; Z86.74 Personal history of sudden cardiac arrest; Z82.49 Family history of ischemic heart disease and other diseases of the circulatory system
CPT/HCPCS: 96376; 96361; 96374; 96375; 99285; 36415; 94640; 94760; 93306; 85379; 83880; 80061; 80053; 80048; 82550 ×2; 82553 ×2; 83690; 83735; 84484 ×2; 85025 ×2; 85610; 85730; 81003; 71020; G0378 ×2; J2060; J1885; J2274; 93005

== ENCOUNTER → 2017-11-25 | Outpatient (CLI) | payer MEDICARE, OTHER ==
--- NOTE | 2017-11-27 11:59 | MM ---
Reason for exam: screening (asymptomatic). Last mammogram was performed 1 year and 7 months ago. History: Patient is postmenopausal. Took hormonal contraceptives for 1 year. Physical Findings: A clinical breast exam by your physician is recommended on an annual basis and results should be correlated with mammographic findings. MG 3D Screening Mammo W/Cad Bilateral CC and MLO view(s) were taken. Prior study comparison: April 10, 2016, bilateral MG 3d diag mammo w/cad [facility]. December 01, 2014, bilateral MG screening mammo w CAD. There are scattered fibroglandular densities. No significant changes when compared with prior studies. ASSESSMENT: Incomplete: need additional imaging evaluation, BI-RAD 0 RECOMMENDATION: Ultrasound of the left breast. (targeted to pain/lump) [facility] will attempt to contact patient to return for ultrasound.
== END | disposition home or self-care (01) ==
LOC: RADMAMWWP 07:54
PROVIDERS: ATTEND Family Medicine
DX: Z12.31 Encounter for screening mammogram for malignant neoplasm of breast (principal)
CPT/HCPCS: 77063; 77067

== ENCOUNTER → 2017-12-02 | Outpatient (CLI) | payer MEDICARE, OTHER ==
--- NOTE | 2017-12-02 10:48 | USB ---
Reason for exam: additional evaluation requested from abnormal screening. History: Patient is postmenopausal. Took hormonal contraceptives for 1 year. 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 US Breast Workup Limited LT Left breast ultrasound demonstrates no cystic or solid lesion seen. Palpable area at anterior axillary region. No solid or cystic lesion seen here or in the upper outer quadrant. These results were verbally communicated with the patient and result sheet given to the patient on 12/02/17. ASSESSMENT: Negative, BI-RAD 1 RECOMMENDATION: Return to routine screening mammogram schedule for both breasts. Manage on a clinical basis with regard to any suspicious palpable abnormality.
== END | disposition home or self-care (01) ==
LOC: RADUSWWP 08:50
PROVIDERS: ATTEND Family Medicine
DX: R92.8 Other abnormal and inconclusive findings on diagnostic imaging of breast (principal)

== ENCOUNTER 2018-02-10 21:45 | Observation (INO) | payer MEDICARE, OTHER ==
[2018-02-10] MEDS ORDERED: ASPIRIN 81 MG PO STA (21:51)
[2018-02-10] MEDS ORDERED: NITROGLYCERIN SL TABS 0.4 MG TAB SUBLINGUAL STA ×3 (21:51)
[2018-02-10] MEDS ORDERED: LORazepam 2 MG/ML INJ IV STA (21:53)
--- NOTE | 2018-02-10 21:57 | ED ---
General Adult HPI - General Stated complaint: chest pain Time Seen by Provider: 02/10/18 21:48 Source: patient, RN notes reviewed Mode of arrival: EMS Limitations: no limitations - History of Present Illness Initial comments: Patient is a pleasant 57-year-old female presenting to the emergency Department with complaints of chest discomfort. Onset of symptoms was prior to arrival. Discomfort feels like pressure. Discomfort is rated 7/10. Patient does have some associated shortness of breath and feels cold however no specific sweating. Patient has had nausea since yesterday and vomited a couple of times. Patient does admit to feeling anxious. Patient did have a very stressful episode earlier that she does not want to talk about at this time. Patient does have a history of similar symptoms previously related with both cardiac problems as well as anxiety. Patient took one nitroglycerin at home and is unclear whether or not it helped. - Related Data Home Medications Medication Instructions Recorded Confirmed Meclizine [Antivert] 25 mg PO BID 12/21/14 02/10/18 Butalb/APAP/Caff 50-325-40Mg 1 tab PO Q8H PRN 09/28/15 02/10/18 [Fioricet 50-325-40] Nitroglycerin Sl Tabs [Nitrostat] 0.4 mg SUBLINGUAL Q5M PRN 01/25/16 02/10/18 Rivaroxaban [Xarelto] 20 mg PO HS 06/02/16 02/10/18 Atorvastatin Calcium [Lipitor] 20 mg PO HS 09/17/16 02/10/18 DULoxetine HCL [Cymbalta] 60 mg PO HS 12/27/16 02/10/18 Previous Rx's Medication Instructions Recorded Aspirin 81 mg PO DAILY #30 chew 06/07/16 Diltiazem Cd [Cardizem CD] 120 mg PO DAILY #30 cap.er.24h 09/25/17 Allergies Allergy/AdvReac Type Severity Reaction Status Date / Time hydrogen peroxide Allergy rash and Verified 02/10/18 22:08 skin burn Latex, Natural Rubber Allergy Swelling Verified 02/10/18 22:13 metronidazole Allergy Unknown Verified 02/10/18 22:08 fentanyl AdvReac decreased Verified 02/10/18 22:08 bp isosorbide AdvReac Rapid Verified 02/10/18 22:08 Heart Rate Review of Systems ROS Statement: Those systems with pertinent positive or pertinent negative responses have been documented in the HPI. ROS Other: All systems not noted in ROS Statement are negative. Constitutional: Denies: fever Eyes: Denies: eye pain ENT: Denies: ear pain Respiratory: Reports: dyspnea. Denies: cough Cardiovascular: Reports: chest pain Endocrine: Denies: fatigue Gastrointestinal: Reports: nausea. Denies: abdominal pain Genitourinary: Denies: dysuria Musculoskeletal: Denies: back pain Skin: Denies: rash Neurological: Denies: weakness Psychiatric: Reports: anxiety Past Medical History Past Medical History: Chest Pain / Angina, COPD, Deep Vein Thrombosis (DVT), Eye Disorder, GERD/Reflux, Hyperlipidemia, Pneumonia, Pulmonary Embolus (PE) Additional Past Medical History / Comment(s): Chronic back and bilateral knee pain, "low BP", DVT right thigh, bilateral PEs in 2010 and 2014, migraines, osteoporosis, IBS, VERTIGO, DDD, cervical and back NERVE DAMAGE GETS TRIGGER POINT SHOTS, cataract L eye.past stress test. History of Any Multi-Drug Resistant Organisms: None Reported Past Surgical History: Appendectomy, Cholecystectomy, Heart Catheterization Additional Past Surgical History / Comment(s): EGD/COLONOSCOPY/POLYPECTOMY- BENIGN, cardiac cath 06/10/16-normal, back/bilateral knee injections. epidural steroid inj -back Past Anesthesia/Blood Transfusion Reactions: No Reported Reaction Additional Past Anesthesia/Blood Transfusion Reaction / Comment(s): Pt has clausterphobia. Past Psychological History: Anxiety, Bipolar, Depression, PTSD, Schizophrenia Smoking Status: Current every day smoker Past Drug Use History: Marijuana - Past Family History Mother Family Medical History: Cancer, COPD, Hypertension Additional Family Medical History / Comment(s): Mother of LUNG CANCER at the age of 74yrs. Father Family Medical History: CVA/TIA, Hypertension Additional Family Medical History / Comment(s): Father had 2 CVAs and from the second one at the age of 52yrs. He was an alcoholic. General Exam Limitations: no limitations General appearance: alert, anxious Head exam: Present: atraumatic Eye exam: Present: normal appearance, PERRL ENT exam: Present: normal oropharynx Neck exam: Present: normal inspection Respiratory exam: Present: normal lung sounds bilaterally. Absent: chest wall tenderness Cardiovascular Exam: Present: regular rate, normal rhythm Expanded Peripheral pulses: 2+: Radial (R), Radial (L), Posterior Tibialis (R), Posterior Tibialis (L) GI/Abdominal exam: Present: soft. Absent: tenderness Extremities exam: Present: normal inspection. Absent: pedal edema, calf tenderness Neurological exam: Present: alert Psychiatric exam: Present: anxious Skin exam: Present: normal color Course Vital Signs 02/10/18 02/10/18 02/10/18 21:48 22:17 22:20 Temperature 98.3 F Pulse Rate 122 H 78 99 Respiratory 16 20 20 Rate Blood Pressure 166/92 158/71 121/69 O2 Sat by Pulse 98 99 97 Oximetry EKG Findings - EKG Comments: EKG Findings:: Normal sinus rhythm 88. DE 126. QRS 76. QT 352. QTC 425. Normal axis. Normal QRS. No acute ST change. Medical Decision Making - Medical Decision Making Patient reevaluated and significantly improved. Patient updated on results and plan. Discomfort is only mild at this time. Case was discussed with practitioner Sahara irving, who will and for Dr. Choi, covering for Dr. Renetta Choi. - Lab Data Result diagrams: 02/10/18 21:50 02/10/18 21:50 Lab Results 02/10/18 02/10/18 02/10/18 Range/Units 21:50 21:50 21:50 WBC 10.4 (3.8-10.6) k/uL RBC 4.44 (3.80-5.40) m/uL Hgb 13.0 (11.4-16.0) gm/dL Hct 37.8 (34.0-46.0) % MCV 85.0 (80.0-100.0) fL MCH 29.3 (25.0-35.0) pg MCHC 34.4 (31.0-37.0) g/dL RDW 13.8 (11.5-15.5) % Plt Count 208 (150-450) k/uL Neutrophils % 62 % Lymphocytes % 31 % Monocytes % 4 % Eosinophils % 2 % Basophils % 0 % Neutrophils # 6.4 (1.3-7.7) k/uL Lymphocytes # 3.2 (1.0-4.8) k/uL Monocytes # 0.4 (0-1.0) k/uL Eosinophils # 0.2 (0-0.7) k/uL Basophils # 0.0 (0-0.2) k/uL PT (9.0-12.0) sec INR (<1.2) APTT (22.0-30.0) sec D-Dimer (<0.60) mg/L FEU Sodium 139 (137-145) mmol/L Potassium 3.7 (3.5-5.1) mmol/L Chloride 107 (98-107) mmol/L Carbon Dioxide 21 L (22-30) mmol/L Anion Gap 11 mmol/L BUN 5 L (7-17) mg/dL Creatinine 0.60 (0.52-1.04) mg/dL Est GFR (CKD-EPI)AfAm >90 (>60 ml/min/1.73 sqM) Est GFR (CKD-EPI)NonAf >90 (>60 ml/min/1.73 sqM) Glucose 115 H (74-99) mg/dL Calcium 9.5 (8.4-10.2) mg/dL Magnesium 1.8 (1.6-2.3) mg/dL Total Bilirubin 0.2 (0.2-1.3) mg/dL AST 18 (14-36) U/L ALT 21 (9-52) U/L Alkaline Phosphatase 83 (38-126) U/L Total Creatine Kinase 78 (30-135) U/L CK-MB (CK-2) 0.6 (0.0-2.4) ng/mL CK-MB (CK-2) Rel Index 0.8 Troponin I <0.012 (0.000-0.034) ng/mL NT-Pro-B Natriuret Pep pg/mL Total Protein 5.9 L (6.3-8.2) g/dL Albumin 3.8 (3.5-5.0) g/dL 02/10/18 02/10/18 Range/Units 21:50 21:50 WBC (3.8-10.6) k/uL RBC (3.80-5.40) m/uL Hgb (11.4-16.0) gm/dL Hct (34.0-46.0) % MCV (80.0-100.0) fL MCH (25.0-35.0) pg MCHC (31.0-37.0) g/dL RDW (11.5-15.5) % Plt Count (150-450) k/uL Neutrophils % % Lymphocytes % % Monocytes % % Eosinophils % % Basophils % % Neutrophils # (1.3-7.7) k/uL Lymphocytes # (1.0-4.8) k/uL Monocytes # (0-1.0) k/uL Eosinophils # (0-0.7) k/uL Basophils # (0-0.2) k/uL PT 10.1 (9.0-12.0) sec INR 1.0 (<1.2) APTT 23.3 (22.0-30.0) sec D-Dimer <0.17 (<0.60) mg/L FEU Sodium (137-145) mmol/L Potassium (3.5-5.1) mmol/L Chloride (98-107) mmol/L Carbon Dioxide (22-30) mmol/L Anion Gap mmol/L BUN (7-17) mg/dL Creatinine (0.52-1.04) mg/dL Est GFR (CKD-EPI)AfAm (>60 ml/min/1.73 sqM) Est GFR (CKD-EPI)NonAf (>60 ml/min/1.73 sqM) Glucose (74-99) mg/dL Calcium (8.4-10.2) mg/dL Magnesium (1.6-2.3) mg/dL Total Bilirubin (0.2-1.3) mg/dL AST (14-36) U/L ALT (9-52) U/L Alkaline Phosphatase (38-126) U/L Total Creatine Kinase (30-135) U/L CK-MB (CK-2) (0.0-2.4) ng/mL CK-MB (CK-2) Rel Index Troponin I (0.000-0.034) ng/mL NT-Pro-B Natriuret Pep 75 pg/mL Total Protein (6.3-8.2) g/dL Albumin (3.5-5.0) g/dL - Radiology Data Radiology results: image reviewed (Chest x-ray shows no acute process) Disposition Clinical Impression: Chest pain Disposition: ADMITTED IP TO THIS HOSP Is patient prescribed a controlled substance at d/c from ED?: No Referrals: Pinky Becker MD [Primary Care Provider] - 1-2 days Decision Time: 22:47
[2018-02-10 22:10] LABS: Basophils % (A) 0 %; Eosinophils # (A) 0.2 k/uL (0-0.7); Eosinophils % (A) 2 %; HCT 37.8 % (34.0-46.0); Lymphocytes # (A) 3.2 k/uL (1.0-4.8); Lymphocytes % (A) 31 %; MCH 29.3 pg (25.0-35.0); MCHC 34.4 g/dL (31.0-37.0); Mean Platelet Volume 8.8; Monocytes # (A) 0.4 k/uL (0-1.0); Monocytes % (A) 4 %; Neutrophils # (A) 6.4 k/uL (1.3-7.7); Neutrophils % (A) 62 %; Platelet Count 208 k/uL (150-450); RBC 4.44 m/uL (3.80-5.40); RDW 13.8 % (11.5-15.5); WBC 10.4 k/uL (3.8-10.6)
[2018-02-10 22:21] LABS: ALT 21 U/L (9-52); AST 18 U/L (14-36); Albumin 3.8 g/dL (3.5-5.0); Alkaline Phosphatase 83 U/L (38-126); Anion Gap 11 mmol/L; Blood Urea Nitrogen 5 mg/dL (7-17); Calcium 9.5 mg/dL (8.4-10.2); Carbon Dioxide 21 mmol/L (22-30); Chloride 107 mmol/L (98-107); Glucose 115 mg/dL (74-99); Magnesium 1.8 mg/dL (1.6-2.3); Potassium 3.7 mmol/L (3.5-5.1); Sodium 139 mmol/L (137-145); Total Bilirubin 0.2 mg/dL (0.2-1.3); Total Protein 5.9 g/dL (6.3-8.2)
[2018-02-10 22:23] LABS: Creatine Kinase 78 U/L (30-135)
[2018-02-10 22:25] LABS: D-Dimer <0.17 mg/L FEU (<0.60); Partial Thromboplastin Time 23.3 sec (22.0-30.0); Prothrombin Time 10.1 sec (9.0-12.0)
--- NOTE | 2018-02-10 22:28 | XR ---
EXAMINATION TYPE: XR chest 2V DATE OF EXAM: 02/10/2018 COMPARISON: 09/24/2017 HISTORY: COPD. Short of breath. TECHNIQUE: Frontal and lateral views of the chest are obtained. FINDINGS: Heart and mediastinum are normal. Lungs are clear. Diaphragm is normal. Bony thorax is int act. There are chest leads. IMPRESSION: Normal chest. No change.
[2018-02-10 22:37] LABS: Creatine Kinase MB 0.6 ng/mL (0.0-2.4); Troponin I <0.012 ng/mL (0.000-0.034)
[2018-02-10] MEDS ORDERED: NITROGLYCERIN SL TABS 0.4 MG TAB SUBLINGUAL PRN (22:47)
[2018-02-10 23:42] VITALS: RESP 16
[2018-02-10] MEDS: NITROGLYCERIN OINT 1 INCH/GM PACKET TOPICAL SCH (23:52)
[2018-02-11] MEDS: ALPRAZolam 0.25 MG TAB PO PRN ×2 (00:27→08:40)
[2018-02-11] MEDS: NITROGLYCERIN OINT 1 INCH/GM PACKET TOPICAL SCH ×3 (04:23→17:19)
[2018-02-11 05:16] LABS: Cholesterol 127 mg/dL (<200); HDL Cholesterol 62 mg/dL (40-60); LDL Cholesterol,Calculated 53 mg/dL (0-99); Triglycerides 60 mg/dL (<150)
[2018-02-11 05:25] LABS: Creatine Kinase 65 U/L (30-135)
[2018-02-11 05:38] LABS: Creatine Kinase MB 0.6 ng/mL (0.0-2.4); Troponin I <0.012 ng/mL (0.000-0.034)
[2018-02-11] MEDS ORDERED: ASPIRIN 325 MG TAB PO SCH (09:00)
--- NOTE | 2018-02-11 09:48 | P.CRDCN ---
History of Present Illness Consult date: 02/11/18 History of present illness: Mrs. Saba is a pleasant 57-year-old female past medical history significant for PE on medical terminologist anticoagulation, dyslipidemia, COPD, anxiety, bipolar, schizophrenia, PTSD and chronic tobacco use. She sees Dr. Ley in the office. We have been asked to see her in consultation for chest pain. She states yesterday she had a migraine headache all day that was 10/10 pain with nausea and vomiting. In the afternoon she started with a heavy pressure sensation in the mid-sternal region associated with shortness of breath , dizziness and palpitations. This lasted a few minutes and seemed to subside on its own. No radiation of the pain to arm, back, neck or jaw. Denies diaphoresis. She has had similar episodes like this in the past and has been evaluated multiple times in the hospital. In May 2016 she had a catheterization which revealed normal coronary arteries with suspected spasm of the distal LAD. EKG reveals sinus mechanism with no acute ST or T-wave abnormalities. Telemetry tracings unremarkable. Chest xray is ngative for an acute cardiopulmonary process. Laboratory data reviewed, hemoglobin 13.0, platelets 208, d-dimer less than 0.17 , sodium 139, potassium 3.7, magnesium 1.8, creatinine 0.6, cardiac enzymes negative 2, LDL 53, HDL 62. Current cardiac medications include Xarelto 20 mg daily, atorvastatin 20 mg daily, Cardizem 120 mg daily and aspirin 81 mg daily. She also takes Antivert, Cymbalta and Fioricet. Most recent echocardiogram performed September 2017 reveals preserved left ventricular systolic function with ejection fraction 55%. Review of Systems At the time of my exam: CONSTITUTIONAL: Denies fever. Denies chills. EYES: Denies blurred vision. Denies vision changes. Denies eye pain. EARS, NOSE, MOUTH & THROAT: Denies headache. Denies sore throat. Denies ear pain. CARDIOVASCULAR: Denies chest pain. Denies shortness of breath. Denies orthopnea. Denies PND. Denies palpitations. RESPIRATORY: Denies cough. GASTROINTESTINAL: Denies abdominal pain. Denies diarrhea. Denies constipation. Denies nausea. Denies vomiting. MUSCULOSKELETAL: Denies myalgias. INTEGUMENTARY: Denies pruitis. Denies rash. NEUROLOGIC: Denies numbness. Denies tingling. Denies weakness. Complains of headache. PSYCHIATRIC: Denies anxiety. Denies depression. ENDOCRINE: Denies fatigue. Denies weight change. Denies polydipsia. Denies polyurina. GENITOURINARY: Denies burning, hematuria or urgency with micturation. HEMATOLOGIC: Denies history of anemia. Denies bleeding. Past Medical History Past Medical History: Chest Pain / Angina, COPD, Deep Vein Thrombosis (DVT), Eye Disorder, GERD/Reflux, Hyperlipidemia, Pneumonia, Pulmonary Embolus (PE) Additional Past Medical History / Comment(s): Chronic back and bilateral knee pain, "low BP", DVT right thigh, bilateral PEs in 2010 and 2014, migraines, osteoporosis, IBS, VERTIGO, DDD, cervical and back NERVE DAMAGE GETS TRIGGER POINT SHOTS, cataract L eye.past stress test. History of Any Multi-Drug Resistant Organisms: None Reported Past Surgical History: Appendectomy, Cholecystectomy, Heart Catheterization Additional Past Surgical History / Comment(s): EGD/COLONOSCOPY/POLYPECTOMY- BENIGN, cardiac cath 06/10/16-normal, back/bilateral knee injections. epidural steroid inj -back Past Anesthesia/Blood Transfusion Reactions: No Reported Reaction Additional Past Anesthesia/Blood Transfusion Reaction / Comment(s): Pt has clausterphobia. Past Psychological History: Anxiety, Bipolar, Depression, PTSD, Schizophrenia Additional Psychological History / Comment(s): Pt resides alone in an [facility], [address]. She has a cane she rarely uses. She does drive. Smoking Status: Current every day smoker Past Alcohol Use History: None Reported Additional Past Alcohol Use History / Comment(s): STARTED SMOKING AT AGE 14(1973 ) currently smokes 1 ppd. Past Drug Use History: Marijuana Additional Drug Use History / Comment(s): Pt states she occasionally smokes marijuana to stimulate her appetite or to help her sleep. - Past Family History Mother Family Medical History: Cancer, COPD, Hypertension Additional Family Medical History / Comment(s): Mother of LUNG CANCER at the age of 74yrs. Father Family Medical History: CVA/TIA, Hypertension Additional Family Medical History / Comment(s): Father had 2 CVAs and from the second one at the age of 52yrs. He was an alcoholic. Medications and Allergies Home Medications Medication Instructions Recorded Confirmed Type Meclizine [Antivert] 25 mg PO BID 12/21/14 02/11/18 History Butalb/APAP/Caff 50-325-40Mg 1 tab PO Q8H PRN 09/28/15 02/11/18 History [Fioricet 50-325-40] Nitroglycerin Sl Tabs [Nitrostat] 0.4 mg SUBLINGUAL Q5M PRN 01/25/16 02/11/18 History Rivaroxaban [Xarelto] 20 mg PO HS 06/02/16 02/11/18 History Aspirin 81 mg PO DAILY #30 chew 06/07/16 02/11/18 Rx Atorvastatin Calcium [Lipitor] 20 mg PO HS 09/17/16 02/11/18 History DULoxetine HCL [Cymbalta] 60 mg PO HS 12/27/16 02/11/18 History Diltiazem Cd [Cardizem CD] 120 mg PO DAILY #30 cap.er.24h 09/25/17 02/11/18 Rx HYDROcodone/APAP 10-325MG [[place] 1 tab PO Q6H PRN 02/11/18 02/11/18 History 10-325] Allergies Allergy/AdvReac Type Severity Reaction Status Date / Time hydrogen peroxide Allergy rash and Verified 02/11/18 00:12 skin burn Latex, Natural Rubber Allergy Swelling Verified 02/11/18 00:12 metronidazole Allergy Unknown Verified 02/11/18 00:12 fentanyl AdvReac decreased Verified 02/11/18 00:12 bp isosorbide AdvReac Rapid Verified 02/11/18 00:12 Heart Rate Physical Exam Vitals: Vital Signs Temp Pulse Pulse Resp BP BP Pulse Ox 02/11/18 07:42 98.4 F 88 16 102/52 94 L 02/11/18 04:00 98.5 F 93 16 90/50 93 L 02/11/18 03:16 16 02/11/18 00:00 16 02/10/18 23:41 97.9 F 81 16 110/62 98 02/10/18 23:06 98.3 F 92 22 109/53 97 02/10/18 22:49 90 20 109/89 99 02/10/18 22:20 99 20 121/69 97 02/10/18 22:17 78 20 158/71 99 02/10/18 21:48 98.3 F 122 H 16 166/92 98 Intake and Output 02/10/18 02/11/18 02/11/18 22:59 06:59 14:59 Other: Voiding Method Toilet Weight 59.421 kg Pressure 102/52 heart rate 88 afebrile maintaining oxygen saturation on room air. GENERAL: This is a 57-year-old female in no apparent distress at the time of my examination. HEENT: Head is atraumatic, normocephalic. Pupils are equal, round. Sclerae anicteric. Conjunctivae are clear. Mucous membranes of the mouth are moist. Neck is supple. There is no jugular venous distention. No carotid bruit is heard. LUNGS: Clear to auscultation no wheezes, rales or rhonchi. No chest wall tenderness is noted on palpation or with deep breathing. HEART: Regular rate and rhythm without murmurs, rubs or gallops. S1 and S2 heard. ABDOMEN: Soft, nontender. Bowel sounds are heard. No organomegaly noted. EXTREMITIES: No evidence of peripheral edema and no calf tenderness noted. VASCULAR: Radial and dorsalis pedis pulses palpated, no evidence of clubbing. NEUROLOGIC: Patient is awake, alert and oriented x3. Results 02/10/18 21:50 02/10/18 21:50 Cardiac Enzymes 02/10/18 02/10/18 02/11/18 Range/Units 21:50 21:50 04:33 AST 18 (14-36) U/L CK-MB (CK-2) 0.6 0.6 (0.0-2.4) ng/mL Troponin I <0.012 <0.012 (0.000-0.034) ng/mL Coagulation 02/10/18 Range/Units 21:50 PT 10.1 (9.0-12.0) sec APTT 23.3 (22.0-30.0) sec Lipids 02/11/18 Range/Units 04:33 Triglycerides 60 (<150) mg/dL Cholesterol 127 (<200) mg/dL HDL Cholesterol 62 H (40-60) mg/dL CBC 02/10/18 Range/Units 21:50 WBC 10.4 (3.8-10.6) k/uL RBC 4.44 (3.80-5.40) m/uL Hgb 13.0 (11.4-16.0) gm/dL Hct 37.8 (34.0-46.0) % Plt Count 208 (150-450) k/uL Comprehensive Metabolic Panel 02/10/18 Range/Units 21:50 Sodium 139 (137-145) mmol/L Potassium 3.7 (3.5-5.1) mmol/L Chloride 107 (98-107) mmol/L Carbon Dioxide 21 L (22-30) mmol/L BUN 5 L (7-17) mg/dL Creatinine 0.60 (0.52-1.04) mg/dL Glucose 115 H (74-99) mg/dL Calcium 9.5 (8.4-10.2) mg/dL AST 18 (14-36) U/L ALT 21 (9-52) U/L Alkaline Phosphatase 83 (38-126) U/L Total Protein 5.9 L (6.3-8.2) g/dL Albumin 3.8 (3.5-5.0) g/dL Current Medications Generic Name Dose Route Start Last Admin Trade Name Freq PRN Reason Stop Dose Admin Alprazolam 0.25 mg 02/10/18 22:47 02/11/18 00:27 Xanax PO 0.25 mg QID PRN Administration Anxiety Aspirin 325 mg 02/11/18 09:00 Aspirin PO DAILY [facility] Nitroglycerin 1 inch 02/11/18 00:00 02/11/18 04:23 Nitro-Bid Oint TOPICAL Not Given Q6HR [facility] Nitroglycerin 0.4 mg 02/10/18 22:47 Nitrostat SUBLINGUAL Q5M PRN Chest Pain Sodium Chloride 10 ml 02/11/18 09:00 Saline Flush IV BID [facility] Intake and Output 02/10/18 02/11/18 02/11/18 22:59 06:59 14:59 Other: Voiding Method Toilet Weight 59.421 kg 02/10/18 21:50 02/10/18 21:50 Assessment and Plan Assessment: ASSESSMENT 1. Chest pain, atypical. An acute coronary event has been ruled out with normal EKG with no evidence of ischemia and negative cardiac enzymes. 2. Dyslipidemia, on atorvastatin 3. History of PE and DVT maintained on long-term anticoagulation 4. History of spasm of the distal LAD, maintained on Cardizem 5. History of anxiety 6. Nicotine dependence PLAN An acute coronary event has been ruled out. Recent catheterization reveals normal coronary arteries. No further cardiac work-up. Continue with atorvastatin, aspirin, xarelto and cardizem. Follow up with Dr. Ley in 2-3 weeks. Thank you kindly for this consultation. Nurse Practitioner note has been reviewed, I agree with a documented findings and plan of care. Patient was seen and examined.
[2018-02-11 10:17] LABS: Creatine Kinase 65 U/L (30-135)
[2018-02-11 10:29] LABS: Creatine Kinase MB 0.5 ng/mL (0.0-2.4); Troponin I <0.012 ng/mL (0.000-0.034)
[2018-02-11] MEDS ORDERED: HYDROcodone/APAP 10-325MG 1 EACH TAB PO PRN (11:32)
[2018-02-11] MEDS ORDERED: BUTALB/APAP/CAFF 50-325-40MG TAB PO PRN (11:32)
[2018-02-11] MEDS ORDERED: SUMAtriptan SUCCINATE 50 MG TAB PO PRN (11:32)
[2018-02-11] MEDS ORDERED: DILTIAZEM CD 120 MG CAP.ER.24H PO SCH (11:45)
[2018-02-11] MEDS ORDERED: MECLIZINE 25 MG TAB PO SCH (11:45)
[2018-02-11] MEDS ORDERED: TOPIRAMATE 25 MG TAB PO SCH (11:45)
[2018-02-11] MEDS ORDERED: KETOROLAC 30 MG/ML 1 ML VIAL IVP STA (12:49)
[2018-02-11 13:59] VITALS: BMI 21.1
[2018-02-11 15:49] VITALS: BP 109/59; PULSE 74; TEMP 98.7
[2018-02-11 16:43] LABS: Appearance,Urine Turbid (Clear); Bacteria,Urine Rare /hpf; Bilirubin,Urine Negative (Negative); Blood,Urine Negative (Negative); Budding Yeast,Urine Many /hpf; Calcium Oxalate Crystals,Urine Many /hpf; Color,Urine Yellow; Glucose,Urine (UA) Negative (Negative); Ketones,Urine Negative (Negative); Leukocyte Esterase,Urine Small (Negative); Mucus,Urine Few /hpf; Nitrite,Urine Negative (Negative); Protein,Urine Trace (Negative); Specific Gravity,Urine 1.013 (1.001-1.035); Squamous Epithelial Cell,Urine 6 /hpf (0-4)
[2018-02-11] MEDS ORDERED: ATORVASTATIN 20 MG TAB PO SCH (21:00)
[2018-02-11] MEDS ORDERED: RIVAROXABAN 20 MG TAB PO SCH (21:00)
[2018-02-11] MEDS ORDERED: DULoxetine HCL 60 MG CAPSULE.DR PO SCH (21:00)
--- NOTE | 2018-02-12 00:01 | P.HPIM ---
History of Present Illness H&P Date: 02/11/18 Chief Complaint: Chest pain Mrs. Saba is a pleasant 57-year-old female past medical history significant for PE on shelter anticoagulation, dyslipidemia, COPD, anxiety, bipolar, schizophrenia, PTSD and chronic tobacco use came to the ER with complaints of chest pain, dizziness and sweating. She states yesterday she had a migraine headache all day that was 10/10 pain with nausea and vomiting. Patient says that he felt very anxious and fell and hurt her right lower chest area. In the afternoon she started with a heavy pressure sensation in the mid-sternal region associated with shortness of breath, dizziness and palpitations. This lasted a few minutes and seemed to subside on its own. No radiation of the pain to arm, back, neck or jaw. Denies diaphoresis. She has had similar episodes like this in the past and has been evaluated multiple times in the hospital. In May 2016 she had a catheterization which revealed normal coronary arteries with suspected spasm of the distal LAD. Overall patient is a poor historian EKG reveals sinus mechanism with no acute ST or T-wave abnormalities. Telemetry tracings unremarkable. Chest xray is ngative for an acute cardiopulmonary process. Laboratory data reviewed, hemoglobin 13.0, platelets 208, d-dimer less than 0.17 , sodium 139, potassium 3.7, magnesium 1.8, creatinine 0.6, cardiac enzymes negative 2, LDL 53, HDL 62. Current cardiac medications include Xarelto 20 mg daily, atorvastatin 20 mg daily, Cardizem 120 mg daily and aspirin 81 mg daily. She also takes Antivert, Cymbalta and Fioricet. Most recent echocardiogram performed September 2017 reveals preserved left ventricular systolic function with ejection fraction 55%. Review of Systems Constitutional: Patient denies any fever or chills . No generalized weakness or weight loss. Abdomen: Patient denied nausea vomiting and diarrhea and abdominal pain. Cardiovascular: Patient denies any chest pain or short of breath no palpitations. Patient does have right lower rib tenderness Respiratory: patient denied any cough is from production. No shortness of breath Neurologic: Patient denied any numbness or tingling headache. Musculoskeletal: Patient denies any complaints of joint swelling or deformity. Skin: Negative Psychiatric: Negative Endocrine: No heat or cold intolerance. No recent weight gain. Genitourinary: No dysuria or hematuria. All other 14 point ROS negative except the above Past Medical History Past Medical History: Chest Pain / Angina, COPD, Deep Vein Thrombosis (DVT), Eye Disorder, GERD/Reflux, Hyperlipidemia, Pneumonia, Pulmonary Embolus (PE) Additional Past Medical History / Comment(s): Chronic back and bilateral knee pain, "low BP", DVT right thigh, bilateral PEs in 2010 and 2014, migraines, osteoporosis, IBS, VERTIGO, DDD, cervical and back NERVE DAMAGE GETS TRIGGER POINT SHOTS, cataract L eye.past stress test. History of Any Multi-Drug Resistant Organisms: None Reported Past Surgical History: Appendectomy, Cholecystectomy, Heart Catheterization Additional Past Surgical History / Comment(s): EGD/COLONOSCOPY/POLYPECTOMY- BENIGN, cardiac cath 06/10/16-normal, back/bilateral knee injections. epidural steroid inj -back Past Anesthesia/Blood Transfusion Reactions: No Reported Reaction Additional Past Anesthesia/Blood Transfusion Reaction / Comment(s): Pt has clausterphobia. Past Psychological History: Anxiety, Bipolar, Depression, PTSD, Schizophrenia Additional Psychological History / Comment(s): Pt resides alone in [facility] [address]. She has a cane she rarely uses. She does drive. Smoking Status: Current every day smoker Past Alcohol Use History: None Reported Additional Past Alcohol Use History / Comment(s): STARTED SMOKING AT AGE 14(1973 ) currently smokes 1 ppd. Past Drug Use History: Marijuana Additional Drug Use History / Comment(s): Pt states she occasionally smokes marijuana to stimulate her appetite or to help her sleep. - Past Family History Mother Family Medical History: Cancer, COPD, Hypertension Additional Family Medical History / Comment(s): Mother of LUNG CANCER at the age of 74yrs. Father Family Medical History: CVA/TIA, Hypertension Additional Family Medical History / Comment(s): Father had 2 CVAs and from the second one at the age of 52yrs. He was an alcoholic. Medications and Allergies Home Medications Medication Instructions Recorded Confirmed Type Meclizine [Antivert] 25 mg PO BID 12/21/14 02/11/18 History Butalb/APAP/Caff 50-325-40Mg 1 tab PO Q8H PRN 09/28/15 02/11/18 History [Fioricet 50-325-40] Nitroglycerin Sl Tabs [Nitrostat] 0.4 mg SUBLINGUAL Q5M PRN 01/25/16 02/11/18 History Rivaroxaban [Xarelto] 20 mg PO HS 06/02/16 02/11/18 History Aspirin 81 mg PO DAILY #30 chew 06/07/16 02/11/18 Rx Atorvastatin Calcium [Lipitor] 20 mg PO HS 09/17/16 02/11/18 History DULoxetine HCL [Cymbalta] 60 mg PO HS 12/27/16 02/11/18 History Diltiazem Cd [Cardizem CD] 120 mg PO DAILY #30 cap.er.24h 09/25/17 02/11/18 Rx HYDROcodone/APAP 10-325MG [[place] 1 tab PO Q6H PRN 02/11/18 02/11/18 History 10-325] SUMAtriptan SUCCINATE [Imitrex] 50 mg PO DAILY PRN 02/11/18 02/11/18 History Topiramate 50 mg PO BID 02/11/18 02/11/18 History Allergies Allergy/AdvReac Type Severity Reaction Status Date / Time hydrogen peroxide Allergy rash and Verified 02/11/18 00:12 skin burn Latex, Natural Rubber Allergy Swelling Verified 02/11/18 00:12 metronidazole Allergy Unknown Verified 02/11/18 00:12 fentanyl AdvReac decreased Verified 02/11/18 00:12 bp isosorbide AdvReac Rapid Verified 02/11/18 00:12 Heart Rate Physical Exam Vitals: Vital Signs Temp Pulse Pulse Resp BP BP Pulse Ox 02/11/18 07:42 98.4 F 88 16 102/52 94 L 02/11/18 04:00 98.5 F 93 16 90/50 93 L 02/11/18 03:16 16 02/11/18 00:00 16 02/10/18 23:41 97.9 F 81 16 110/62 98 02/10/18 23:06 98.3 F 92 22 109/53 97 02/10/18 22:49 90 20 109/89 99 02/10/18 22:20 99 20 121/69 97 02/10/18 22:17 78 20 158/71 99 02/10/18 21:48 98.3 F 122 H 16 166/92 98 Intake and Output 02/10/18 02/11/18 02/11/18 22:59 06:59 14:59 Other: Voiding Method Toilet Toilet # Voids 1 Weight 59.421 kg PHYSICAL EXAMINATION: Patient is lying in the bed comfortably, no acute distress, awake alert and oriented. But very slow to communicate and anxious. HEENT: Normocephalic. Neck is supple. Pupils reactive. Nostrils clear. Oral cavity is moist. Ears reveal no drainage. Neck reveals no JVD, carotid bruits, or thyromegaly. CHEST EXAMINATION: Right lower rib cage tenderness. Trachea is central. Symmetrical expansion. Lung dangelo clear to auscultation and percussion. CARDIAC: Normal S1, S2 with no gallops. No murmurs ABDOMEN: Soft. Bowel sounds normal. No organomegaly. No abdominal bruits. Extremities: reveal no edema. No clubbing or cyanosis Neurologically awake, alert, oriented x3 with well-coordinated movements. No focal deficits noted Skin: No rash or skin lesions. Psychiatric: Cooperative. Anxious. Nonsuicidal Musculoskeletal: No joint swelling or deformity. Normal range of motion. Results CBC & Chem 7: 02/10/18 21:50 02/10/18 21:50 Labs: Abnormal Lab Results - Last 24 Hours (Table) 02/10/18 02/11/18 Range/Units 21:50 04:33 Carbon Dioxide 21 L (22-30) mmol/L BUN 5 L (7-17) mg/dL Glucose 115 H (74-99) mg/dL Total Protein 5.9 L (6.3-8.2) g/dL HDL Cholesterol 62 H (40-60) mg/dL Thrombosis Risk Factor Assmnt - Choose All That Apply Any of the Below Risk Factors Present?: Yes Each Factor Represents 1 point: Abnormal pulmonary function (COPD), Age 41-60 years, Hx of IBD Other Risk Factors: Yes Each Risk Factor Represents 3 Points: History of DVT/PE Other congenital or acquired thrombophilia - If yes, enter type in comment: No Thrombosis Risk Factor Assessment Total Risk Factor Score: 6 Thrombosis Risk Factor Assessment Level: High Risk Assessment and Plan Assessment: Atypical chest pain likely musculoskeletal. ACS ruled out. 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 Serial EKG and troponin have been negative. Cardiology recommends no further workup. UA negative. Continue the home medications including aspirin and atorvastatin Cardizem and xarelto. Patient was encouraged to ambulate and further recommendations based on the clinical course. Time with Patient: Greater than 30
--- NOTE | 2018-02-12 00:03 | P.DS ---
Providers Date of admission: 02/10/18 22:47 Expected date of discharge: 02/11/18 Attending physician: Jennifer Choi Consults: 02/10/18 22:47 Consult Physician Urgent Consulting Provider: Deonna Coyne Consult Reason/Comments: cp Do you want consulting provider notified?: Yes Primary care physician: Pinky Becker Hospital Course: Discharge diagnosis Atypical chest pain likely musculoskeletal. ACS ruled out. Anxiety depression and bipolar PTSD and schizophrenia Migraine headache History of recurrent PE and DVT currently on long-term anticoagulation Spasm of distal LAD maintained on Cardizem Nicotine dependence GERD Hyperlipidemia chronic back pain Degenerative joint disease Hospital course Mrs. Saba is a pleasant 57-year-old female past medical history significant for PE on alf anticoagulation, dyslipidemia, COPD, anxiety, bipolar, schizophrenia, PTSD and chronic tobacco use came to the ER with complaints of chest pain, dizziness and sweating. She states yesterday she had a migraine headache all day that was 10/10 pain with nausea and vomiting. Patient says that he felt very anxious and fell and hurt her right lower chest area. In the afternoon she started with a heavy pressure sensation in the mid-sternal region associated with shortness of breath, dizziness and palpitations. This lasted a few minutes and seemed to subside on its own. No radiation of the pain to arm, back, neck or jaw. Denies diaphoresis. She has had similar episodes like this in the past and has been evaluated multiple times in the hospital. In May 2016 she had a catheterization which revealed normal coronary arteries with suspected spasm of the distal LAD. Overall patient is a poor historian EKG reveals sinus mechanism with no acute ST or T-wave abnormalities. Telemetry tracings unremarkable. Chest xray is ngative for an acute cardiopulmonary process. Laboratory data reviewed, hemoglobin 13.0, platelets 208, d-dimer less than 0.17 , sodium 139, potassium 3.7, magnesium 1.8, creatinine 0.6, cardiac enzymes negative 2, LDL 53, HDL 62. Current cardiac medications include Xarelto 20 mg daily, atorvastatin 20 mg daily, Cardizem 120 mg daily and aspirin 81 mg daily. She also takes Antivert, Cymbalta and Fioricet. Most recent echocardiogram performed September 2017 reveals preserved left ventricular systolic function with ejection fraction 55%. Patient was continued on telemetry monitoring. Serial EKG and troponin have been negative. Cardiology recommends no further workup. UA negative. Continued the home medications including aspirin and atorvastatin Cardizem and xarelto. Patient was encouraged to ambulate. Patient had some difficulty getting her the bed this morning and currently been ambulating well. Discussed with the family in detail. Otherwise patient was recommended to follow with cardiology as an outpatient. Stable to be discharged home. No complaints of retrosternal chest pain. Discharge physical examination was done and vitals reviewed. Patient Condition at Discharge: Fair Plan - Discharge Summary Discharge Rx Participant: No New Discharge Prescriptions: Continue Meclizine [Antivert] 25 mg PO BID Butalb/APAP/Caff 50-325-40Mg [Fioricet 50-325-40] 1 tab PO Q8H PRN PRN Reason: Migraine Headache Nitroglycerin Sl Tabs [Nitrostat] 0.4 mg SUBLINGUAL Q5M PRN PRN Reason: Pain Rivaroxaban [Xarelto] 20 mg PO HS Aspirin 81 mg PO DAILY #30 chew Atorvastatin Calcium [Lipitor] 20 mg PO HS DULoxetine HCL [Cymbalta] 60 mg PO HS Diltiazem Cd [Cardizem CD] 120 mg PO DAILY #30 cap.er.24h HYDROcodone/APAP 10-325MG [[place] 10-325] 1 tab PO Q6H PRN PRN Reason: Pain Topiramate 50 mg PO BID SUMAtriptan SUCCINATE [Imitrex] 50 mg PO DAILY PRN PRN Reason: Headache Discharge Medication List Meclizine [Antivert] 25 mg PO BID 12/21/14 [History] Butalb/APAP/Caff 50-325-40Mg [Fioricet 50-325-40] 1 tab PO Q8H PRN 09/28/15 [ History] Nitroglycerin Sl Tabs [Nitrostat] 0.4 mg SUBLINGUAL Q5M PRN 01/25/16 [History] Rivaroxaban [Xarelto] 20 mg PO HS 06/02/16 [History] Aspirin 81 mg PO DAILY #30 chew 06/07/16 [Rx] Atorvastatin Calcium [Lipitor] 20 mg PO HS 09/17/16 [History] DULoxetine HCL [Cymbalta] 60 mg PO HS 12/27/16 [History] Diltiazem Cd [Cardizem CD] 120 mg PO DAILY #30 cap.er.24h 09/25/17 [Rx] HYDROcodone/APAP 10-325MG [[place] 10-325] 1 tab PO Q6H PRN 02/11/18 [History] SUMAtriptan SUCCINATE [Imitrex] 50 mg PO DAILY PRN 02/11/18 [History] Topiramate 50 mg PO BID 02/11/18 [History] Follow up Appointment(s)/Referral(s): Pinky Becker MD [Primary Care Provider] - 1-2 days Nirmal Ley MD [STAFF PHYSICIAN] - 02/26/18 2:00 pm Discharge Disposition: HOME SELF-CARE
== END 2018-02-11 18:55 | disposition home or self-care (01) ==
LOC: EC 21:45 → 3OBS 22:47
PROVIDERS: ADMIT Hospitalist; ATTEND Hospitalist
DX: R07.89 Other chest pain (principal); G43.909 Migraine, unspecified, not intractable, without status migrainosus; F41.8 Other specified anxiety disorders; F43.10 Post-traumatic stress disorder, unspecified; F20.9 Schizophrenia, unspecified; F31.9 Bipolar disorder, unspecified; I20.1 Angina pectoris with documented spasm; E78.5 Hyperlipidemia, unspecified; F17.210 Nicotine dependence, cigarettes, uncomplicated; J44.9 Chronic obstructive pulmonary disease, unspecified; M81.0 Age-related osteoporosis without current pathological fracture; K58.9 Irritable bowel syndrome, unspecified; M50.30 Other cervical disc degeneration, unspecified cervical region; M25.561 Pain in right knee; M25.562 Pain in left knee; H26.9 Unspecified cataract; F12.90 Cannabis use, unspecified, uncomplicated; K21.9 Gastro-esophageal reflux disease without esophagitis; G89.29 Other chronic pain; M54.9 Dorsalgia, unspecified; M19.90 Unspecified osteoarthritis, unspecified site; Z79.82 Long term (current) use of aspirin; Z79.01 Long term (current) use of anticoagulants; Z79.899 Other long term (current) drug therapy; Z88.5 Allergy status to narcotic agent; Z88.8 Allergy status to other drugs, medicaments and biological substances; Z88.1 Allergy status to other antibiotic agents; Z91.040 Latex allergy status; Z86.711 Personal history of pulmonary embolism; Z86.718 Personal history of other venous thrombosis and embolism; Z80.1 Family history of malignant neoplasm of trachea, bronchus and lung; Z82.5 Family history of asthma and other chronic lower respiratory diseases; Z82.49 Family history of ischemic heart disease and other diseases of the circulatory system; Z81.1 Family history of alcohol abuse and dependence
CPT/HCPCS: 99285 ×2; 96374 ×2; 96375; 36415; 94760; 93005; 85379; 83880; 80061; 80053; 82550 ×2; 82553 ×2; 83735; 84484 ×2; 85025; 85610; 85730; 81001; 71046; G0378 ×2; J2060; J1885

== ENCOUNTER 2018-04-01 17:58 | Observation (INO) | payer MEDICARE, OTHER ==
[2018-04-01] MEDS ORDERED: ASPIRIN 81 MG PO STA (18:24)
[2018-04-01] MEDS ORDERED: KETOROLAC 30 MG/ML 1 ML VIAL IVP STA (18:24)
[2018-04-01 18:37] LABS: Basophils % (A) 1 %; Eosinophils # (A) 0.2 k/uL (0-0.7); Eosinophils % (A) 3 %; HGB 13.7 gm/dL (11.4-16.0); Lymphocytes # (A) 2.9 k/uL (1.0-4.8); Lymphocytes % (A) 45 %; MCH 30.1 pg (25.0-35.0); MCHC 34.2 g/dL (31.0-37.0); MCV 88.1 fL (80.0-100.0); Mean Platelet Volume 8.1; Monocytes # (A) 0.3 k/uL (0-1.0); Monocytes % (A) 4 %; Neutrophils # (A) 2.9 k/uL (1.3-7.7); Neutrophils % (A) 45 %; Platelet Count 199 k/uL (150-450); RBC 4.54 m/uL (3.80-5.40); RDW 14.1 % (11.5-15.5); WBC 6.4 k/uL (3.8-10.6)
--- NOTE | 2018-04-01 18:47 | XR ---
EXAMINATION TYPE: XR chest 2V DATE OF EXAM: 04/01/2018 COMPARISON: 02/10/2018 HISTORY: Chest pain TECHNIQUE: Frontal and lateral views of the chest are obtained. FINDINGS: Heart and mediastinum are normal. Lungs are clear. Diaphragm is normal. Bony thorax appear s normal. IMPRESSION: Normal chest. No change.
[2018-04-01 18:48] LABS: ALT 27 U/L (9-52); AST 19 U/L (14-36); Albumin 4.2 g/dL (3.5-5.0); Alkaline Phosphatase 74 U/L (38-126); Anion Gap 11 mmol/L; Blood Urea Nitrogen 8 mg/dL (7-17); Calcium 9.5 mg/dL (8.4-10.2); Carbon Dioxide 21 mmol/L (22-30); Chloride 104 mmol/L (98-107); Glucose 98 mg/dL (74-99); Magnesium 2.1 mg/dL (1.6-2.3); Potassium 4.1 mmol/L (3.5-5.1); Sodium 136 mmol/L (137-145); Total Bilirubin 0.1 mg/dL (0.2-1.3); Total Protein 6.6 g/dL (6.3-8.2)
[2018-04-01 18:50] LABS: Creatine Kinase 60 U/L (30-135)
[2018-04-01 18:57] LABS: D-Dimer 0.45 mg/L FEU (<0.60); INR 0.9 (<1.2); Prothrombin Time 9.4 sec (9.0-12.0)
[2018-04-01 18:58] LABS: Partial Thromboplastin Time 21.5 sec (22.0-30.0)
[2018-04-01 19:03] LABS: Creatine Kinase MB 0.4 ng/mL (0.0-2.4); Troponin I <0.012 ng/mL (0.000-0.034)
--- NOTE | 2018-04-01 19:06 | ED ---
Chest Pain HPI - General Chief Complaint: Chest Pain Stated Complaint: Chest Pain Time Seen by Provider: 04/01/18 18:19 Source: patient Mode of arrival: wheelchair Limitations: no limitations - History of Present Illness Initial Comments: This 57-year-old white female presents with a complaint of some left sided chest pain. She states that this is a sharp pain inferior to her left breast. It is been present for the last 3 days. It is not pleuritic in nature and does not radiate. She also complains of a slight headache for the past week. She relates that she has a history of previous pulmonary embolism on 2 different occasions. She has been on Xarelto but stopped approximately one month ago due to insurance coverage reasons. She denies any leg pain or swelling. She denies any previously known myocardial infarction. She has had a heart cath in the past and relates that she does have some coronary artery disease but her vessels are too small to stand. She denies any other complaints or modifying factors. There is no shortness of breath. - Related Data Home Medications Medication Instructions Recorded Confirmed Butalb/APAP/Caff 50-325-40Mg 1 tab PO Q8H PRN 09/28/15 04/01/18 [Fioricet 50-325-40] Nitroglycerin Sl Tabs [Nitrostat] 0.4 mg SUBLINGUAL Q5M PRN 01/25/16 04/01/18 Atorvastatin Calcium [Lipitor] 20 mg PO HS 09/17/16 04/01/18 HYDROcodone/APAP 10-325MG [[place] 1 tab PO Q6H PRN 02/11/18 04/01/18 10-325] Topiramate 50 mg PO BID 02/11/18 04/01/18 Aspirin 81 mg PO HS 04/01/18 04/01/18 Diltiazem Cd [Cardizem CD] 120 mg PO HS 04/01/18 04/01/18 Allergies Allergy/AdvReac Type Severity Reaction Status Date / Time hydrogen peroxide Allergy rash and Verified 04/01/18 18:47 skin burn Latex, Natural Rubber Allergy Swelling Verified 04/01/18 18:47 metronidazole Allergy Unknown Verified 04/01/18 18:47 fentanyl AdvReac decreased Verified 04/01/18 18:47 bp isosorbide AdvReac Rapid Verified 04/01/18 18:47 Heart Rate Review of Systems ROS Statement: Those systems with pertinent positive or pertinent negative responses have been documented in the HPI. ROS Other: All systems not noted in ROS Statement are negative. Past Medical History Past Medical History: Chest Pain / Angina, COPD, Deep Vein Thrombosis (DVT), Eye Disorder, GERD/Reflux, Hyperlipidemia, Pneumonia, Pulmonary Embolus (PE) Additional Past Medical History / Comment(s): Chronic back and bilateral knee pain, "low BP", DVT right thigh, bilateral PEs in 2010 and 2014, migraines, osteoporosis, IBS, VERTIGO, DDD, cervical and back NERVE DAMAGE GETS TRIGGER POINT SHOTS, cataract L eye.past stress test. History of Any Multi-Drug Resistant Organisms: None Reported Past Surgical History: Appendectomy, Cholecystectomy, Heart Catheterization Additional Past Surgical History / Comment(s): EGD/COLONOSCOPY/POLYPECTOMY- BENIGN, cardiac cath 06/10/16-normal, back/bilateral knee injections. epidural steroid inj -back Past Anesthesia/Blood Transfusion Reactions: No Reported Reaction Additional Past Anesthesia/Blood Transfusion Reaction / Comment(s): Pt has clausterphobia. Past Psychological History: Anxiety, Bipolar, Depression, PTSD, Schizophrenia Smoking Status: Current every day smoker Past Alcohol Use History: None Reported Past Drug Use History: Marijuana - Past Family History Mother Family Medical History: Cancer, COPD, Hypertension Additional Family Medical History / Comment(s): Mother of LUNG CANCER at the age of 74yrs. Father Family Medical History: CVA/TIA, Hypertension Additional Family Medical History / Comment(s): Father had 2 CVAs and from the second one at the age of 52yrs. He was an alcoholic. General Exam - General Exam Comments Initial Comments: GENERAL: The patient is well nourished and well hydrated. VITAL SIGNS: Heart rate, blood pressure, respiratory rate reviewed as recorded in nurse's notes. EYES: Pupils are round and reactive. Extraocular movements are intact. No conjunctival / lid redness or swelling. ENT: No external evidence of injury, swelling, or ecchymosis. Airway is patent. Throat is clear. NECK: Nontender. No swelling or evidence of injury. No subcutaneous emphysema. Trachea is midline. No thyroid mass. HEART: Regular rate and rhythm. Good peripheral pulses. LUNGS/CHEST: Breath sounds clear and equal bilaterally. No rales, rhonchi, or wheezes. No ecchymosis, subcutaneous emphysema, or tenderness. ABDOMEN: Abdomen soft without tenderness. No palpable masses or organomegaly. No peritoneal signs. No abdominal wall swelling or ecchymosis. EXTREMITIES: No extremity tenderness. Normal muscle tone and function. No thoracolumbar tenderness. NEUROLOGIC: Sensation is grossly intact. Cranial nerve exam reveals face is symmetrical, tongue is midline, speech is clear. SKIN: No abrasions or ecchymosis is noted. No induration or masses noted. PSYCHIATRIC: Alert and oriented. Appropriate behavior and judgment. Limitations: no limitations Course Vital Signs 04/01/18 04/01/18 04/01/18 18:03 18:25 18:26 Temperature 97.8 F Pulse Rate 79 81 Pulse Rate [ 73 Group President ] Respiratory 16 20 Rate Blood Pressure 132/70 115/73 O2 Sat by Pulse 99 98 Oximetry 04/01/18 19:26 Temperature 98.8 F Pulse Rate 67 Pulse Rate [ Group President ] Respiratory 18 Rate Blood Pressure 131/68 O2 Sat by Pulse 99 Oximetry Chest Pain MDM - MDM The patient was seen and examined. All diagnostics are reviewed. The EKG shows a normal sinus rhythm at a rate of 71. There is no acute ST-T wave changes noted. The CT intervals 122, QRS duration is 90, and the QTC intervals 412. She does receive an aspirin. She receives 30 mg of Toradol for her headache. The laboratory was all essentially within normal limits. The patient also had a chest x-ray which did not show any acute process. The computed tomography scan of the thorax did not show any evidence of pulmonary embolism but it does show some changes of emphysema which are unchanged from computed tomography scan done 2 years ago. She is continuing to have pain in her chest and receives 2 mg of morphine. Nitroglycerin is avoided due to ALLERGY. It is not felt as though her symptoms are related to pulmonary embolism but the possibility of acute coronary syndrome certainly is possible. She is agreeable to admission. Case will be discussed with internal medicine shortly. Disposition Clinical Impression: Chest pain, Headache, Unstable angina pectoris, COPD (chronic obstructive pulmonary disease) Disposition: ADMITTED IP TO THIS HOSP Condition: Good Is patient prescribed a controlled substance at d/c from ED?: No Referrals: Pinky Becker MD [Primary Care Provider] - 1-2 days Time of Disposition: 19:40 Decision Date: 04/01/18 Decision Time: 19:40
--- NOTE | 2018-04-01 19:15 | CT ---
EXAMINATION TYPE: CT angio chest DATE OF EXAM: 04/01/2018 6:59 PM COMPARISON: NONE HISTORY: Shortness of breath CT DLP: 146.7 mGycm Automated exposure control for dose reduction was used. CONTRAST: CTA scan of the thorax is performed with IV Contrast, patient injected with 100 mL of Isovue 370, pul monary embolism protocol. There are 3-D post processed images.. FINDINGS: There is some bullous emphysema at the lung apices. There is no evidence of a pulmonary mass. Lungs a re clear of consolidation. There is no pleural effusion. There is no pericardial effusion. There is s mall linear density at the right posterior lung base. There is no mediastinal adenopathy. Thoracic aorta appears intact. There is no evidence of aneurysm o r dissection. Heart size is normal. There are no filling defects in the pulmonary arteries. There is spurring in the thoracic spine. IMPRESSION: MINIMAL PULMONARY EMPHYSEMA. NO EVIDENCE OF PULMONARY EMBOLISM. MINIMAL SCARRING AT THE RIGHT LUNG AP EX. HEART AND LUNGS ARE UNCHANGED COMPARED TO 05/03/2016 EXAM.
[2018-04-01] MEDS ORDERED: MORPHINE SULFATE 2 MG/ML SYRINGE IVP STA (19:37)
[2018-04-01] MEDS ORDERED: MORPHINE SULFATE 2 MG/ML SYRINGE IVP PRN (19:44)
[2018-04-01] MEDS ORDERED: HEPARIN SODIUM,PORCINE 5,000 UNIT/ML 1 ML VIAL IV ONE (19:44)
[2018-04-01] MEDS ORDERED: HEPARIN SODIUM,PORCINE 5,000 UNIT/ML 1 ML VIAL IV PRN (19:44)
[2018-04-01] MEDS ORDERED: HEPARIN SOD,PORK IN 0.45% NACL 25,000 UNIT in 0.45% NACL 1 500ML.BAG IV SCH (19:45)
[2018-04-01] MEDS ORDERED: BUTALB/APAP/CAFF 50-325-40MG TAB PO PRN (19:48)
[2018-04-01] MEDS ORDERED: ATORVASTATIN 20 MG TAB PO SCH (21:00)
[2018-04-01] MEDS ORDERED: METOPROLOL TARTRATE 25 MG TAB PO SCH (21:00)
[2018-04-01] MEDS ORDERED: ASPIRIN 81 MG PO SCH (21:00)
[2018-04-01] MEDS: TOPIRAMATE 25 MG TAB PO SCH (22:47)
[2018-04-02 03:19] LABS: Cholesterol 181 mg/dL (<200); HDL Cholesterol 59 mg/dL (40-60); LDL Cholesterol,Calculated 110 mg/dL (0-99); Triglycerides 59 mg/dL (<150)
[2018-04-02 03:23] LABS: Creatine Kinase 47 U/L (30-135)
[2018-04-02 03:37] LABS: Creatine Kinase MB 0.4 ng/mL (0.0-2.4); Troponin I <0.012 ng/mL (0.000-0.034)
--- NOTE | 2018-04-02 04:48 | HP ---
HISTORY AND PHYSICAL DATE OF SERVICE: 04/01/2018 CHIEF COMPLAINT: Chest pain. HISTORY OF PRESENT ILLNESS: This 57-year-old woman with a past medical history of multiple medical problems including COPD, history of DVT, pulmonary embolus, hypertension, hyperlipidemia being followed by Dr. Pinky Becker in the outpatient setting apparently had a stress test about a year ago. The results not available. Currently the patient complained of chest pain which is mostly seen in the left lower part of the chest which is sharp in character. The pain was present for the last 3 days. The patient has been on Xarelto previously, but this stopped approximately a month ago because of insurance coverage reasons. The patient is only on Medicare. The patient is also evaluated for pulmonary embolism in the ER which was negative at this time. The patient also had cardiac catheterization in the past. There is no history of fever, rigors. No history of headache, loss of consciousness, seizures. No symptoms of radiation of pain elsewhere. PAST MEDICAL HISTORY: COPD, DVT, GERD, hypertension, pneumonia and pulmonary embolism. MEDICATIONS: Prior to admission include: 1. Topamax 50 mg p.o. b.i.d. 2. Nitro 0.4 sublingual p.r.n. 3. Gregory 10 mg q.6h. 4. Cardizem CD 180 mg q.h.s. 5. Fioricet 1 tab p.o. p.r.n. 6. Lipitor 20 mg q.h.s. 7. Aspirin 81 mg q.h.s. ALLERGIES: HYDROGEN PEROXIDE, LATEX, METRONIDAZOLE, FAMILY HISTORY: History of cancer, COPD, hypertension, lung cancer in mother. SOCIAL HISTORY: History of smoking, history of THC. REVIEW OF SYSTEMS: ENT: No diminished vision. No diminished hearing. CARDIOVASCULAR: No angina or palpitations. RESPIRATORY: As mentioned earlier. GI no nausea or vomiting. : No dysuria or hematuria. NERVOUS SYSTEM: No numbness or weakness. ALLERGY/IMMUNOLOGY: No asthma or hayfever. MUSCULOSKELETAL: As mentioned earlier. HEMATOLOGY/ONCOLOGY: As mentioned earlier. ENDOCRINE: No history of diabetes or hypothyroidism. CONSTITUTIONAL: As mentioned earlier. DERMATOLOGY: Negative. RHEUMATOLOGY: None. PSYCHIATRIC: As mentioned earlier. PHYSICAL EXAMINATION: The patient is alert and oriented times three. Pulse 54, blood pressure 140/62, respiration 18, temperature 98.2, pulse ox 99% on room air. HEENT: Conjunctivae normal. Oral mucosa moist. NECK is no jugular venous distention. No carotid bruit. No lymph node enlargement. CARDIOVASCULAR: S1, S2 muffled. RESPIRATIONS: Breath sounds diminished in the bases. A few rhonchi and no crackles. ABDOMEN: Soft, nontender. No mass palpable. LEGS: No edema and no swelling. NERVOUS SYSTEM: Higher functions as mentioned earlier. Moves all four limbs. No focal motor or sensory deficits. LYMPHATICS: No lymph nodes palpable in the neck, axillae or groin. SKIN: No ulcer, rashes or bleeding. LAB STUDIES: CBC within normal limits. Sodium 136. Other labs are noted. Troponin is negative. ASSESSMENT: 1. Chest pain possible unstable angina, possibly musculoskeletal pain. 2. History of noncompliance with medications. 3. History of deep vein thrombosis, pulmonary embolism. 4. Chronic obstructive pulmonary disease. 5. History of gastroesophageal reflux disease. 6. Hyperlipidemia. 7. History of pneumonia. 8. History of degenerative joint disease. 9. History of deep vein thrombosis of the right thigh. 10.History of irritable bowel syndrome. 11.History of cholecystectomy. 12.Anxiety/bipolar depression, PTSD, schizophrenia. RECOMMENDATIONS AND DISCUSSION: In this 57-year-old woman who presented with multiple complex medical issues. Otherwise, at this time, we will monitor the patient closely. Rule out myocardial infarction. Cardiology evaluation. I would also recommend Hematology/Oncology consultation because the patient has been switched to Xarelto from Coumadin apparently and will inquire whether the Coumadin will be sufficient for long-term, probably lifelong treatment in this patient with multiple insurance issues. Prognosis guarded. Discussed with the patient who understands and agrees. Further recommendations to follow. A copy of dictation being forwarded to Dr. Pinky Becker, who is the primary physician. MMODL / IJN: [id number] / DEREK
[2018-04-02 07:18] LABS: Creatine Kinase 43 U/L (30-135)
[2018-04-02 07:29] LABS: Creatine Kinase MB 0.3 ng/mL (0.0-2.4); Troponin I <0.012 ng/mL (0.000-0.034)
[2018-04-02 08:04] VITALS: RESP 16
[2018-04-02] MEDS: HYDROcodone/APAP 10-325MG 1 EACH TAB PO PRN ×2 (08:54→15:19)
[2018-04-02] MEDS ORDERED: ASPIRIN 325 MG TAB PO SCH (09:00)
--- NOTE | 2018-04-02 09:53 | P.CRDCN ---
History of Present Illness History of present illness: Mrs. Saba is a pleasant 57-year-old female past medical history significant for PE on alf anticoagulation, dyslipidemia, COPD, anxiety, bipolar, schizophrenia, PTSD and chronic tobacco use. She sees Dr. Ley in the office. We have been asked to see her in consultation for chest pain. She states she has not taken her Xarelto for the previous month secondary to insurance issues. Her last couple of days she has developed a pain in the left thoracic region worse with movement especially when she raises her arms. She describes a similar feeling the last time she was diagnosed with PE years ago. She denies associated shortness of breath, palpitations, nausea, vomiting, dizziness or diaphoresis. In May 2016 she had a catheterization which revealed normal coronary arteries with suspected spasm of the distal LAD. Imdur was tried at that time and she was unable to tolerate and was changed to diltiazem. She states she has been taking this medications even without insurance. At the time of my exam she is resting comfortably in bed in no acute distress. CTA chest was negative for PE with evidence of emphysema. EKG reveals sinus mechanism with no acute ST or T-wave abnormalities. Telemetry tracings unremarkable. Chest xray is ngative for an acute cardiopulmonary process. Laboratory data reviewed, hemoglobin 13.7, platelets 199, d-dimer 0.45, sodium 136, potassium 4.1, creatinine 0.6, magnesium 2.1, cardiac enzymes negative 3, LDL 110. Current cardiac medications include Xarelto 20 mg daily, atorvastatin 20 mg daily, Cardizem 120 mg daily and aspirin 81 mg daily. She also takes Fioricet, [place] and to topiramate. Most recent echocardiogram performed September 2017 reveals preserved left ventricular systolic function with ejection fraction 55%. Review of Systems At the time of my exam: CONSTITUTIONAL: Denies fever. Denies chills. EYES: Denies blurred vision. Denies vision changes. Denies eye pain. EARS, NOSE, MOUTH & THROAT: Denies headache. Denies sore throat. Denies ear pain. CARDIOVASCULAR: Denies chest pain. Denies shortness of breath. Denies orthopnea. Denies PND. Denies palpitations. RESPIRATORY: Denies cough. GASTROINTESTINAL: Denies abdominal pain. Denies diarrhea. Denies constipation. Denies nausea. Denies vomiting. MUSCULOSKELETAL: Left thoracic pleuritic pain. INTEGUMENTARY: Denies pruitis. Denies rash. NEUROLOGIC: Denies numbness. Denies tingling. Denies weakness. PSYCHIATRIC: Denies anxiety. Denies depression. ENDOCRINE: Denies fatigue. Denies weight change. Denies polydipsia. Denies polyurina. GENITOURINARY: Denies burning, hematuria or urgency with micturation. HEMATOLOGIC: Denies history of anemia. Denies bleeding. Past Medical History Past Medical History: Chest Pain / Angina, COPD, Deep Vein Thrombosis (DVT), Eye Disorder, GERD/Reflux, Hyperlipidemia, Pneumonia, Pulmonary Embolus (PE) Additional Past Medical History / Comment(s): Chronic back and bilateral knee pain, "low BP", DVT right thigh, bilateral PEs in 2010 and 2014, migraines, osteoporosis, IBS, VERTIGO, DDD, cervical and back NERVE DAMAGE GETS TRIGGER POINT SHOTS, cataract L eye.past stress test. History of Any Multi-Drug Resistant Organisms: None Reported Past Surgical History: Appendectomy, Cholecystectomy, Heart Catheterization Additional Past Surgical History / Comment(s): EGD/COLONOSCOPY/POLYPECTOMY- BENIGN, cardiac cath 06/10/16-normal, back/bilateral knee injections. epidural steroid inj -back Past Anesthesia/Blood Transfusion Reactions: No Reported Reaction Additional Past Anesthesia/Blood Transfusion Reaction / Comment(s): Pt has clausterphobia. Smoking Status: Current every day smoker - Past Family History Mother Family Medical History: Cancer, COPD, Hypertension Additional Family Medical History / Comment(s): Mother of LUNG CANCER at the age of 74yrs. Father Family Medical History: CVA/TIA, Hypertension Additional Family Medical History / Comment(s): Father had 2 CVAs and from the second one at the age of 52yrs. He was an alcoholic. Medications and Allergies Home Medications Medication Instructions Recorded Confirmed Type Butalb/APAP/Caff 50-325-40Mg 1 tab PO Q8H PRN 09/28/15 04/01/18 History [Fioricet 50-325-40] Nitroglycerin Sl Tabs [Nitrostat] 0.4 mg SUBLINGUAL Q5M PRN 01/25/16 04/01/18 History Atorvastatin Calcium [Lipitor] 20 mg PO HS 09/17/16 04/01/18 History HYDROcodone/APAP 10-325MG [[place] 1 tab PO Q6H PRN 02/11/18 04/01/18 History 10-325] Topiramate 50 mg PO BID 02/11/18 04/01/18 History Aspirin 81 mg PO HS 04/01/18 04/01/18 History Diltiazem Cd [Cardizem CD] 120 mg PO HS 04/01/18 04/01/18 History Allergies Allergy/AdvReac Type Severity Reaction Status Date / Time hydrogen peroxide Allergy rash and Verified 04/01/18 22:07 skin burn Latex, Natural Rubber Allergy Swelling Verified 04/01/18 22:07 metronidazole Allergy Unknown Verified 04/01/18 22:07 fentanyl AdvReac decreased Verified 04/01/18 22:07 bp isosorbide AdvReac Rapid Verified 04/01/18 22:07 Heart Rate Physical Exam Vitals: Vital Signs Temp Pulse Pulse Resp BP BP Pulse Ox 04/02/18 04:00 98.0 F 50 L 18 115/56 98 04/02/18 03:48 18 04/01/18 22:31 18 04/01/18 21:45 98.2 F 54 L 145/64 99 04/01/18 20:50 98.9 F 04/01/18 20:38 61 18 133/77 99 04/01/18 19:26 98.8 F 67 18 131/68 99 04/01/18 18:26 81 20 115/73 98 04/01/18 18:25 73 04/01/18 18:03 97.8 F 79 16 132/70 99 Intake and Output 04/01/18 04/02/18 04/02/18 22:59 06:59 14:59 Intake Total 91.739 Balance 91.739 Intake: Intake, IV Titration 91.739 Amount Heparin Sod,Pork in 0.45% 91.739 NaCl 25,000 unit In 0.45 % NaCl 1 500ml.bag @ 12 UNITS/KG/HR 14.15 mls/hr IV .Q24H [facility] Rx#: [id number] Other: Voiding Method Toilet Toilet # Voids 1 Weight 58.1 kg Blood pressure 115/56 heart rate 58 afebrile maintaining oxygen saturation on room air GENERAL: This is a 57-year-old female in no apparent distress at the time of my examination. HEENT: Head is atraumatic, normocephalic. Pupils are equal, round. Sclerae anicteric. Conjunctivae are clear. Mucous membranes of the mouth are moist. Neck is supple. There is no jugular venous distention. No carotid bruit is heard. LUNGS: Clear to auscultation no wheezes, rales or rhonchi. No chest wall tenderness is noted on palpation or with deep breathing. HEART: Regular rate and rhythm without murmurs, rubs or gallops. S1 and S2 heard. ABDOMEN: Soft, nontender. Bowel sounds are heard. No organomegaly noted. EXTREMITIES: No evidence of peripheral edema and no calf tenderness noted. VASCULAR: Radial and dorsalis pedis pulses palpated, no evidence of clubbing. NEUROLOGIC: Patient is awake, alert and oriented x3. Results 04/01/18 18:20 04/01/18 18:20 Cardiac Enzymes 04/01/18 04/01/18 04/02/18 Range/Units 18: 18: 02:10 AST 19 (14-36) U/L CK-MB (CK-2) 0.4 0.4 (0.0-2.4) ng/mL Troponin I <0.012 <0.012 (0.000-0.034) ng/mL Coagulation 04/01/18 04/02/18 Range/Units 18:20 02:10 PT 9.4 (9.0-12.0) sec APTT 21.5 L 43.8 H (22.0-30.0) sec Lipids 04/02/18 Range/Units 02:11 Triglycerides 59 (<150) mg/dL Cholesterol 181 (<200) mg/dL HDL Cholesterol 59 (40-60) mg/dL CBC 04/01/18 Range/Units 18:20 WBC 6.4 (3.8-10.6) k/uL RBC 4.54 (3.80-5.40) m/uL Hgb 13.7 (11.4-16.0) gm/dL Hct 40.0 (34.0-46.0) % Plt Count 199 (150-450) k/uL Comprehensive Metabolic Panel 04/01/18 Range/Units 18:20 Sodium 136 L (137-145) mmol/L Potassium 4.1 (3.5-5.1) mmol/L Chloride 104 (98-107) mmol/L Carbon Dioxide 21 L (22-30) mmol/L BUN 8 (7-17) mg/dL Creatinine 0.60 (0.52-1.04) mg/dL Glucose 98 (74-99) mg/dL Calcium 9.5 (8.4-10.2) mg/dL AST 19 (14-36) U/L ALT 27 (9-52) U/L Alkaline Phosphatase 74 (38-126) U/L Total Protein 6.6 (6.3-8.2) g/dL Albumin 4.2 (3.5-5.0) g/dL Current Medications Generic Name Dose Route Start Last Admin Trade Name Freq PRN Reason Stop Dose Admin Acetaminophen/Butalbital/Caffeine 1 each 04/01/18 19:48 Fioricet 50-325-40 PO Q8H PRN Migraine Headache Hydrocodone Bitart/Acetaminophen 1 each 04/01/18 19:48 [place] 10 PO Q6H PRN MODERATE Pain Aspirin 81 mg 04/01/18 21:00 04/01/18 22:46 Aspirin PO 81 mg HS RHEA Administration Atorvastatin Calcium 20 mg 04/01/18 21:00 04/01/18 22:46 Lipitor PO 20 mg HS RHEA Administration Diltiazem HCl 120 mg 04/02/18 21:00 Cardizem Cd PO HS RHEA Heparin Sodium (Porcine) 0 unit 04/01/18 19:44 04/02/18 03:17 Heparin IV 1,450 unit Q6HR PRN Administration Low PTT Protocol Heparin Sodium/Sodium Chloride 500 mls @ 14.15 mls/hr 04/01/18 19:45 03:09 25,000 unit/ Sodium Chloride IV 14 units/kg/hr .Q24H RHEA 16.51 mls/hr Protocol Titration 12 UNITS/KG/HR Morphine Sulfate 2 mg 04/01/18 19:44 04/01/18 22:47 Morphine Sulfate (Inj) IVP 2 mg Q3H PRN Administration Chest Pain Topiramate 50 mg 04/01/18 21:00 04/01/18 22:47 Topamax PO 50 mg BID RHEA Administration Intake and Output 04/01/18 04/02/18 04/02/18 22:59 06:59 14:59 Intake Total 91.739 Balance 91.739 Intake: Intake, IV Titration 91.739 Amount Heparin Sod,Pork in 0.45% 91.739 NaCl 25,000 unit In 0.45 % NaCl 1 500ml.bag @ 12 UNITS/KG/HR 14.15 mls/hr IV .Q24H [facility] Rx#: [id number] Other: Voiding Method Toilet Toilet # Voids 1 Weight 58.1 kg 04/01/18 18:20 04/01/18 18:20 Assessment and Plan Assessment: ASSESSMENT 1. Pleuritic pain 2. History of pulmonary embolism on long-term anticoagulation 3. Dyslipidemia 4. History of spasm of the distal LAD per cardiac catheterization 2015, maintained on Cardizem with no symptoms of palpitations or chest pain currently. 5. Chronic daily nicotine dependence PLAN An acute coronary event has been ruled out. No further cardiac workup. Further recommendations regarding anticoagulation per primary medical team. Stable from a cardiac perspective. Follow up with Dr. Ley in 2-3 weeks. Thank you kindly for this consultation. Nurse Practitioner note has been reviewed, I agree with a documented findings and plan of care. Patient was seen and examined.
[2018-04-02] MEDS: TOPIRAMATE 25 MG TAB PO SCH (10:53)
[2018-04-02] MEDS ORDERED: ENOXAPARIN 60 MG/0.6 ML SYRINGE SQ STA (12:30)
[2018-04-02] MEDS ORDERED: WARFARIN 10 MG TAB PO ONE (15:30)
[2018-04-02 15:37] VITALS: BMI 20.7
[2018-04-02 15:40] LABS: Prothrombin Time 10.2 sec (9.0-12.0)
[2018-04-02 16:04] VITALS: BP 95/48; PULSE 70; TEMP 98.4
--- NOTE | 2018-04-02 16:22 | DS ---
DISCHARGE SUMMARY FINAL DIAGNOSES: 1. Chest pain possible musculoskeletal, myocardial infarction ruled out. 2. History of noncompliance with medications. 3. History of deep vein thrombosis, pulmonary embolism on chronic anticoagulation. 4. Chronic obstructive pulmonary disease. 5. History of gastroesophageal reflux disease. 6. History of hyperlipidemia. 7. History of pneumonia. 8. History of degenerative joint disease. 9. History of deep vein thrombosis of the right thigh. 10.History of irritable bowel syndrome. 11.History of cholecystectomy. 12.History of anxiety, bipolar depression. 13.PTSD/schizophrenia. DISCHARGE DISPOSITION: Patient is being discharged in stable condition with guarded prognosis. HISTORY OF PRESENT ILLNESS: This 57-year-old woman with a past medical history of multiple medical problems was admitted with chest pain, myocardial infarction ruled out. Cardiology recommended outpatient followup. Also discussed with Hematology/Oncology. The patient is unable to take Xarelto at this time. Being switched over to Coumadin. On exam, vitals are stable. Cardiovascular: S1, S2. Abdomen soft. Central nervous system: No focal deficits. DISCHARGE ADVICE AND MEDICATIONS: 1. Diet is cardiac diet. 2. Activity limited until followup. 3. Follow up with Dr. Pinky Becker in 1-2 days. 4. Follow up with lithographic camera operator as recommended. MEDICATIONS: 1. Aspirin 81 mg q.h.s. 2. Lipitor 20 mg. 3. Butalbital 1 q8h p.r.n. 4. Cardizem CD 180 mg q.h.s. 5. Cymbalta 60 mg p.o. daily. 6. Lovenox 60 mg subcu b.i.d. for 4 days for overlapping assessment. 7. Hydrocodone 10 mg q.6h p.r.n. 8. Antivert 25 mg p.o. daily. 9. Nitrostat 0.4 sublingual p.r.n. 10.Metoprolol 50 mg p.o. b.i.d. 11.Coumadin 5 mg p.o. daily. Once again the patient is being discharged in stable condition with guarded prognosis. MMODL / IJN: [id number] / MTDD
--- NOTE | 2018-04-02 16:39 | P.CONS ---
History of Present Illness - Reason for Consult Consult date: 04/02/18 anticoagulation Requesting physician: Jennifer Choi - Chief Complaint chest pain - History of Present Illness Ms. Saba is a pleasant female pt of Dr. Arriaga who was diagnosed with a RLE DVT and extensive PE at [facility], it was felt to be unprovoked after history reviewed. Due to the lack of strong provoking factors , a hypercoagulable work up was done there by Hematology no results have ever been obtained and pt does not know results. She was 1st seen in our office in Oct 2014 and by February 2015 pt work was done and she was current on mammogram, EGD/ colonoscopy and had a CT of AP, no underlying disease or new diagnoses. She was also transitioned off of coumadin due to uncontrolled INR and need for vit reversal, did well with xarelto. 10/31/15 pt was seen in f/u and stated she had stopped Xarelto in 08/27 due to syncopal episodes. She developed SOB and chest pressure in 09/26, CTA on 09/28/25 revealed small bilateral thrombi in the tertiary branches of the lungs. Xarelto was resumed. She was admitted again to [facility] on 10/04/15 for chest pain, which was ultimately felt to be due to a pericarditis. A repeat CT chest had shown a 1.4 cm nodule, PET on 10/21/15 was negative. Pt was placed on as needed follow up and told to continue xarelto lifelong. Pt presented to the hospital with c/o chest pain and [place], this has resolved now , denied diaphoresis, nausea, vomiting, states some dizziness and weakness with wt. loss over this last month, no changes in bowel or bladder habits or swelling , no new pain to report. She is very anxious, she admits that she had to stop many of her medications due to insurance changes and financial difficulties. Review of Systems 10 point ROS as stated in HPI Past Medical History Past Medical History: Chest Pain / Angina, COPD, Deep Vein Thrombosis (DVT), Eye Disorder, GERD/Reflux, Hyperlipidemia, Pneumonia, Pulmonary Embolus (PE) Additional Past Medical History / Comment(s): Chronic back and bilateral knee pain, "low BP", DVT right thigh, bilateral PEs in 2010 and 2014, migraines, osteoporosis, IBS, VERTIGO, DDD, cervical and back NERVE DAMAGE GETS TRIGGER POINT SHOTS, cataract L eye.past stress test. History of Any Multi-Drug Resistant Organisms: None Reported Past Surgical History: Appendectomy, Cholecystectomy, Heart Catheterization Additional Past Surgical History / Comment(s): EGD/COLONOSCOPY/POLYPECTOMY- BENIGN, cardiac cath 06/10/16-normal, back/bilateral knee injections. epidural steroid inj -back Past Anesthesia/Blood Transfusion Reactions: No Reported Reaction Additional Past Anesthesia/Blood Transfusion Reaction / Comm: Pt has clausterphobia. Past Psychological History: Depression Additional Psychological History / Comment(s): mood disorder Smoking Status: Current every day smoker Past Alcohol Use History: None Reported Past Drug Use History: None Reported - Past Family History Mother Family Medical History: Cancer, COPD, Hypertension Additional Family Medical History / Comment(s): Mother of LUNG CANCER at the age of 74yrs. Father Family Medical History: CVA/TIA, Hypertension Additional Family Medical History / Comment(s): Father had 2 CVAs and from the second one at the age of 52yrs. He was an alcoholic. Medications and Allergies Home Medications Medication Instructions Recorded Confirmed Type Butalb/APAP/Caff 50-325-40Mg 1 tab PO Q8H PRN 09/28/15 04/01/18 History [Fioricet 50-325-40] Nitroglycerin Sl Tabs [Nitrostat] 0.4 mg SUBLINGUAL Q5M PRN 01/25/16 04/01/18 History Atorvastatin Calcium [Lipitor] 20 mg PO HS 09/17/16 04/01/18 History HYDROcodone/APAP 10-325MG [[place] 1 tab PO Q6H PRN 02/11/18 04/01/18 History 10-325] Topiramate 50 mg PO BID 02/11/18 04/01/18 History Aspirin 81 mg PO HS 04/01/18 04/01/18 History Diltiazem Cd [Cardizem CD] 120 mg PO HS 04/01/18 04/01/18 History DULoxetine HCL [Cymbalta] 60 mg PO DAILY 04/02/18 04/02/18 History Enoxaparin [Lovenox] 60 mg SQ Q12H #8 syringe 04/02/18 Rx Meclizine [Antivert] 25 mg PO BID 04/02/18 04/02/18 History Warfarin Sodium [Coumadin] 5 mg PO DAILY #30 tablet 04/02/18 Rx Allergies Allergy/AdvReac Type Severity Reaction Status Date / Time hydrogen peroxide Allergy rash and Verified 04/01/18 22:07 skin burn Latex, Natural Rubber Allergy Swelling Verified 04/01/18 22:07 metronidazole Allergy Unknown Verified 04/01/18 22:07 fentanyl AdvReac decreased Verified 04/01/18 22:07 bp isosorbide AdvReac Rapid Verified 04/01/18 22:07 Heart Rate Physical Exam Vitals: Vital Signs Temp Pulse Pulse Pulse Resp BP BP 04/02/18 16:00 98.4 F 70 16 95/48 04/02/18 12:00 97.7 F 86 16 108/52 04/02/18 08:00 97.9 F 82 16 101/56 04/02/18 04:00 98.0 F 50 L 18 115/56 04/02/18 03:48 18 04/01/18 22:31 18 04/01/18 21:45 98.2 F 54 L 145/64 04/01/18 20:50 98.9 F 04/01/18 20:38 61 18 133/77 04/01/18 19:26 98.8 F 67 18 131/68 04/01/18 18:26 81 20 115/73 04/01/18 18:25 73 04/01/18 18:03 97.8 F 79 16 132/70 Pulse Ox 04/02/18 16:00 98 04/02/18 12:00 94 L 04/02/18 08:00 94 L 04/02/18 04:00 98 04/02/18 03:48 04/01/18 22:31 04/01/18 21:45 99 04/01/18 20:50 04/01/18 20:38 99 04/01/18 19:26 99 04/01/18 18:26 98 04/01/18 18:25 04/01/18 18:03 99 Intake and Output 04/02/18 04/02/18 04/02/18 06:59 14:59 22:59 Intake Total 91.739 Balance 91.739 Intake: Intake, IV Titration 91.739 Amount Heparin Sod,Pork in 0.45% 91.739 NaCl 25,000 unit In 0.45 % NaCl 1 500ml.bag @ 12 UNITS/KG/HR 14.15 mls/hr IV .Q24H [facility] Rx#: [id number] Other: Voiding Method Toilet Toilet Toilet # Voids 1 Weight 58.1 kg - Constitutional General appearance: cooperative, mild distress, thin - EENT Eyes: anicteric sclerae, edentulous ENT: normal oropharynx - Neck Neck: no lymphadenopathy - Respiratory Respiratory: bilateral: CTA - Cardiovascular Heart sounds: normal: S1, S2 Abnormal Heart Sounds: no systolic murmur, no diastolic murmur, no rub, no S3 Gallop, no S4 Gallop, no click, no other leg Peripheral Edema: bilateral: None - Gastrointestinal General gastrointestinal: no absent bowel sounds, no decreased bowel sounds, no distended, no hepatomegaly, no hyperactive bowel sounds, normal bowel sounds, no organomegaly, no rigid, no scaphoid, soft, no splenomegaly, no tenderness, no umbilical hernia, no ventral hernia - Integumentary Integumentary: normal - Neurologic Neurologic: CNII-XII intact - Musculoskeletal Musculoskeletal: strength equal bilaterally - Psychiatric Psychiatric: A&O x's 3, appropriate affect, intact judgment & insight Results CBC & Chem 7: 04/01/18 18:20 04/01/18 18:20 Labs: Abnormal Lab Results - Last 24 Hours (Table) 04/01/18 04/01/18 04/02/18 Range/Units 18:20 18:20 02:10 APTT 21.5 L 43.8 H (22.0-30.0) sec Sodium 136 L (137-145) mmol/L Carbon Dioxide 21 L (22-30) mmol/L Total Bilirubin 0.1 L (0.2-1.3) mg/dL LDL Cholesterol, Calc (0-99) mg/dL 04/02/18 04/02/18 Range/Units 02:11 10:10 APTT 55.5 H (22.0-30.0) sec Sodium (137-145) mmol/L Carbon Dioxide (22-30) mmol/L Total Bilirubin (0.2-1.3) mg/dL LDL Cholesterol, Calc 110 H (0-99) mg/dL Chest x-ray: report reviewed CT scan - chest: report reviewed Assessment and Plan (1) Pulmonary embolism, bilateral Narrative/Plan: Pt last seen by Dr. Arriaga earlier this year with recommendations to stay on anticoagulation due to the unprovoked nature of her initial PE diagnosed in 2014. Pt states having insurance changes and that for the last month she has had to decide between medications and rent/utilities/food so, she has not taken her medications as prescribed for 1 month. Have requested Social Work to see pt for financial/medication assistance. Have left 3 different anticoagulant recommendations, eliquis, xarelto and coumadin to see what her insurance will cover for least amount of money. One of the NOACs would be simpler for pt as there is only routine follow up and no dose changes but, that will be determined by pt insurance. Recommend life long anticoagulation. Current Visit: No Status: Chronic Priority: Medium Code(s): I26.99 - OTHER PULMONARY EMBOLISM WITHOUT ACUTE COR PULMONALE SNOMED Code(s): 90408115
[2018-04-02] MEDS ORDERED: DILTIAZEM CD 120 MG CAP.ER.24H PO SCH (21:00)
--- NOTE | 2018-04-03 14:00 | ECHOF ---
Referral Reason:cp MEASUREMENTS -------- HEIGHT: 165.1 cm WEIGHT: 58.1 kg BP: 115/63 RVIDd: 2.3 cm (< 3.3) IVSd: 1.0 cm (0.6 - 1.1) LVIDd: 4.3 cm (3.9 - 5.3) LVPWd: 1.0 cm (0.6 - 1.1) IVSs: 1.2 cm LVIDs: 3.1 cm LVPWs: 1.3 cm LA Diam: 3.0 cm (2.7 - 3.8) LAESV Index (A-L): 22.35 ml/m Ao Diam: 3.2 cm (2.0 - 3.7) AV Cusp: 1.2 cm (1.5 - 2.6) LA Diam: 3.2 cm (2.7 - 3.8) MV EXCURSION: 19.436 mm (> 18.000) MV EF SLOPE: 118 mm/s (70 - 150) EPSS: 0.2 cm MV E Inderjit: 0.73 m/s MV DecT: 229 ms MV A Inderjit: 0.63 m/s MV E/A Ratio: 1.16 AR PHT: 501 ms RAP: 5.00 mmHg RVSP: 25.12 mmHg FINDINGS -------- Sinus rhythm. This was a technically adequate study. LV size, wall thickness and systolic function are normal, with an EF greater than 55%. The left bakari tricular size is normal. The right ventricle is normal in size. The left atrial size is normal. Normal LA size by volume 22+/-6 ml/m2. The right atrial size is normal. There is mild aortic regurgitation. Mild mitral annular calcification present. Mild mitral regurgitation is present. Mild tricuspid regurgitation present. There is no evidence of pulmonary hypertension. The right v entricular systolic pressure, as measured by Doppler, is 25.12mmHg. There is no pulmonic regurgitation present. The aortic root size is normal. There is no pericardial effusion. CONCLUSIONS -------- 1. LV size, wall thickness and systolic function are normal, with an EF greater than 55%. 2. The left ventricular size is normal. 3. The right ventricle is normal in size. 4. The left atrial size is normal. 5. The right atrial size is normal. 6. There is mild aortic regurgitation. 7. Mild mitral annular calcification present. 8. Mild mitral regurgitation is present. 9. Mild tricuspid regurgitation present. 10. There is no evidence of pulmonary hypertension. 11. The right ventricular systolic pressure, as measured by Doppler, is 25.12mmHg. 12. There is no pulmonic regurgitation present. 13. The aortic root size is normal. 14. There is no pericardial effusion. HOP STRAINER: Romy Arauz RDCS
== END 2018-04-02 18:27 | disposition home or self-care (01) ==
LOC: EC 17:58 → 3OBS 19:40
PROVIDERS: ADMIT Hospitalist; ATTEND Hospitalist
DX: R07.89 Other chest pain (principal); Z91.14 Patient's other noncompliance with medication regimen; Z86.718 Personal history of other venous thrombosis and embolism; Z86.711 Personal history of pulmonary embolism; Z79.01 Long term (current) use of anticoagulants; J44.9 Chronic obstructive pulmonary disease, unspecified; K21.9 Gastro-esophageal reflux disease without esophagitis; E78.5 Hyperlipidemia, unspecified; Z87.01 Personal history of pneumonia (recurrent); M19.90 Unspecified osteoarthritis, unspecified site; K58.9 Irritable bowel syndrome, unspecified; Z90.49 Acquired absence of other specified parts of digestive tract; F43.10 Post-traumatic stress disorder, unspecified; F31.9 Bipolar disorder, unspecified; F20.9 Schizophrenia, unspecified; R51 Headache; T45.516A Underdosing of anticoagulants, initial encounter; Z91.128 Patient's intentional underdosing of medication regimen for other reason; Z79.82 Long term (current) use of aspirin; Z79.899 Other long term (current) drug therapy; Z91.040 Latex allergy status; Z88.5 Allergy status to narcotic agent; Z88.8 Allergy status to other drugs, medicaments and biological substances; Z91.048 Other nonmedicinal substance allergy status; G89.29 Other chronic pain; M54.9 Dorsalgia, unspecified; M25.562 Pain in left knee; M25.561 Pain in right knee; G43.909 Migraine, unspecified, not intractable, without status migrainosus; M81.0 Age-related osteoporosis without current pathological fracture; R42 Dizziness and giddiness; F41.9 Anxiety disorder, unspecified; I10 Essential (primary) hypertension; I20.1 Angina pectoris with documented spasm; I26.99 Other pulmonary embolism without acute cor pulmonale; F17.200 Nicotine dependence, unspecified, uncomplicated; Z80.1 Family history of malignant neoplasm of trachea, bronchus and lung; Z82.3 Family history of stroke; Z81.1 Family history of alcohol abuse and dependence; R63.4 Abnormal weight loss; Z68.20 Body mass index [BMI] 20.0-20.9, adult
CPT/HCPCS: 99285 ×2; 96375 ×3; 96376 ×4; 96365 ×2; 96366 ×2; 96372; 36415; 93005; 93306; 85379; 80061; 80053; 82550 ×2; 82553 ×2; 83735; 84484 ×2; 85025; 85610 ×2; 85730 ×2; 87040; 71046; 71275; G0378 ×2; J1644 ×3; J1650; J1885; J2270; Q9967

== ENCOUNTER 2018-04-22 19:21 | Observation (INO) | payer MEDICARE ==
[2018-04-22] MEDS ORDERED: SODIUM CHLORIDE 0.9% 500 ML IV STA (19:37)
[2018-04-22 20:05] LABS: Basophils # (A) 0.1 k/uL (0-0.2); Basophils % (A) 1 %; Eosinophils # (A) 0.2 k/uL (0-0.7); Eosinophils % (A) 3 %; HGB 11.6 gm/dL (11.4-16.0); Lymphocytes # (A) 2.5 k/uL (1.0-4.8); Lymphocytes % (A) 42 %; MCH 29.8 pg (25.0-35.0); MCHC 33.1 g/dL (31.0-37.0); Mean Platelet Volume 7.9; Monocytes # (A) 0.3 k/uL (0-1.0); Monocytes % (A) 5 %; Neutrophils # (A) 2.8 k/uL (1.3-7.7); Neutrophils % (A) 48 %; Platelet Count 193 k/uL (150-450); RDW 14.3 % (11.5-15.5); WBC 5.9 k/uL (3.8-10.6)
--- NOTE | 2018-04-22 20:10 | CT ---
EXAMINATION TYPE: CT brain cely matute DATE OF EXAM: 04/22/2018 COMPARISON: 01/02/2017 HISTORY: Syncopal episode today. Low blood pressure. CT DLP: 1307.5 mGycm Automated exposure control for dose reduction was used. TECHNIQUE: CT scan of the head and cervical spine are performed without contrast. FINDINGS: There is 1 cm hypodensity in the insula right temporal lobe consistent with old lacunar i nfarct. There is no mass effect nor midline shift. There is no sign of intracranial hemorrhage. The c alvarium is intact. Cervical vertebra have normal alignment. There is mild narrowing at C5-6 disc space. The other disc s paces appear normal. Facet joints are intact. Skull base is intact. Prevertebral soft tissues appear normal. There is some pleural thickening at the right lung apex. 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 No acute intracranial abnormality. Mild spondylosis at C5-6. No fracture. No change.
[2018-04-22 20:18] LABS: INR 2.6 (<1.2); Partial Thromboplastin Time 29.5 sec (22.0-30.0); Prothrombin Time 23.2 sec (9.0-12.0)
[2018-04-22 20:24] LABS: ALT 24 U/L (9-52); AST 19 U/L (14-36); Albumin 3.2 g/dL (3.5-5.0); Alcohol <10 mg/dL; Alkaline Phosphatase 58 U/L (38-126); Anion Gap 7 mmol/L; Blood Urea Nitrogen 11 mg/dL (7-17); Calcium 8.8 mg/dL (8.4-10.2); Carbon Dioxide 26 mmol/L (22-30); Chloride 103 mmol/L (98-107); Glucose 82 mg/dL (74-99); Potassium 3.6 mmol/L (3.5-5.1); Sodium 136 mmol/L (137-145); Total Bilirubin 0.1 mg/dL (0.2-1.3); Total Protein 5.3 g/dL (6.3-8.2)
[2018-04-22 20:28] LABS: Creatine Kinase 62 U/L (30-135)
--- NOTE | 2018-04-22 20:34 | XR ---
EXAMINATION TYPE: XR chest 1V portable DATE OF EXAM: 04/22/2018 COMPARISON: 04/01/2018 HISTORY: Pain TECHNIQUE: Single frontal view of the chest is obtained. FINDINGS: Heart and mediastinum are normal. Lungs are clear. Diaphragm is normal. Bony thorax appear s normal. There are chest leads. IMPRESSION: Normal chest. No change.
--- NOTE | 2018-04-22 20:35 | XR ---
EXAMINATION TYPE: XR pelvis AP view DATE OF EXAM: 04/22/2018 COMPARISON: NONE HISTORY: Pain after falling TECHNIQUE: Single view FINDINGS: Pelvic ring appears intact. The proximal femurs and hip joints appear normal. Sacroiliac marc ints appear normal. IMPRESSION: Normal pelvis
[2018-04-22 20:40] LABS: Creatine Kinase MB 0.4 ng/mL (0.0-2.4); Troponin I <0.012 ng/mL (0.000-0.034)
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
[2018-04-22 22:15] LABS: Appearance,Urine Clear (Clear); Bilirubin,Urine Negative (Negative); Blood,Urine Negative (Negative); Color,Urine Yellow; Glucose,Urine (UA) Negative (Negative); Ketones,Urine Negative (Negative); Leukocyte Esterase,Urine Negative (Negative); Nitrite,Urine Negative (Negative); Protein,Urine Negative (Negative); Specific Gravity,Urine 1.013 (1.001-1.035)
[2018-04-22 22:25] LABS: Amphetamine Screen,Urine Not Detected (NotDetected); Barbiturate Screen,Urine Not Detected (NotDetected); Benzodiazepines Screen,Urine Not Detected (NotDetected); Cocaine Screen,Urine Not Detected (NotDetected); Methadone Screen, Urine Not Detected (NotDetected); Opiate Screen,Urine Detected (NotDetected); Oxycodone Screen, Urine Not Detected (NotDetected); Phencyclidine Screen,Urine Not Detected (NotDetected); Tricyclic Antidepressant,Urine Not Detected (NotDetected); Urn Cannabinoid Scrn Detected (NotDetected)
[2018-04-22] MEDS ORDERED: NALOXONE 0.4 MG/ML 1 ML VIAL IV PRN (22:57)
[2018-04-22] MEDS ORDERED: SODIUM CHLORIDE 0.9% 1,000 ML IV SCH (23:00)
[2018-04-22] MEDS ORDERED: ACETAMINOPHEN TAB 500 MG TAB PO STA (23:19)
[2018-04-23 01:20] VITALS: RESP 16
[2018-04-23 01:30] VITALS: BMI 20.9
[2018-04-23] MEDS ORDERED: BUTALB/APAP/CAFF 50-325-40MG TAB PO STA (02:23)
[2018-04-23] MEDS ORDERED: traMADol 50 MG TAB PO PRN (11:50)
[2018-04-23 12:31] VITALS: BP 110/72; PULSE 56; TEMP 98.7
--- NOTE | 2018-04-24 00:51 | P.HPIM ---
History of Present Illness H&P Date: 04/23/18 Chief Complaint: Syncope Patient is a 57-year-old female with a known history of COPD, history of PE 2 and on chronic anticoagulation with Coumadin, migraine headache and multiple other medical problems admitted with the hospital with syncopal episode. Patient was at parking lot and suddenly she became very Dizzy and about to fall and her friends help to sit down. Patient says that she did use her Consciousness. Patient does have a history of syncopal episodes In the past. Denied any chest pain. No nausea vomiting no chest pain or short of breath. Patient did not eat breakfast that morning. Patient gets syncopal episodes approximately every 6 months. Patient was recently taken off of her migraine medication secondary to insurance issues. Patient could not follow with cardiology and neurology as an outpatient. Currently patient denied any symptoms. Patient is symptomatic now. Denied any recent illnesses or sick contacts. Patient would like to be discharged now. INR is 2.[address] head showed old lacunar infarct right temporal lobe. No acute intracranial abnormality Mild spondylosis at C5 6. No fracture no change. EKG showed T-wave inversions in the precordial leads V3. No ST elevation. Sinus rhythm. chest x-ray and pelvic x-ray are normal Review of Systems Constitutional: Patient denies any fever or chills . No generalized weakness or weight loss. Abdomen: Patient denied nausea vomiting and diarrhea and abdominal pain. Cardiovascular: Patient denies any chest pain or short of breath no palpitations. Respiratory: patient denied any cough is from production. No shortness of breath Neurologic: Patient denied any numbness or tingling headache. Musculoskeletal: Patient denies any complaints of joint swelling or deformity. Skin: Negative Psychiatric: Negative Endocrine: No heat or cold intolerance. No recent weight gain. Genitourinary: No dysuria or hematuria. All other 14 point ROS negative except the above Past Medical History Past Medical History: Chest Pain / Angina, COPD, Deep Vein Thrombosis (DVT), Eye Disorder, GERD/Reflux, Hyperlipidemia, Pneumonia, Pulmonary Embolus (PE) Additional Past Medical History / Comment(s): Chronic back and bilateral knee pain, "low BP", DVT right thigh, bilateral PEs in 2010 and 2014, migraines, osteoporosis, IBS, VERTIGO, DDD, cervical and back NERVE DAMAGE GETS TRIGGER POINT SHOTS, cataract B/L eye.past stress test. History of Any Multi-Drug Resistant Organisms: None Reported Past Surgical History: Appendectomy, Cholecystectomy, Heart Catheterization Additional Past Surgical History / Comment(s): EGD/COLONOSCOPY/POLYPECTOMY- BENIGN, cardiac cath 06/10/16-normal, back/bilateral knee injections. epidural steroid inj -back Past Anesthesia/Blood Transfusion Reactions: No Reported Reaction Additional Past Anesthesia/Blood Transfusion Reaction / Comment(s): Pt has clausterphobia. Smoking Status: Current every day smoker - Past Family History Mother Family Medical History: Cancer, COPD, Hypertension Additional Family Medical History / Comment(s): Mother of LUNG CANCER at the age of 74yrs. Father Family Medical History: CVA/TIA, Hypertension Additional Family Medical History / Comment(s): Father had 2 CVAs and from the second one at the age of 52yrs. He was an alcoholic. Medications and Allergies Home Medications Medication Instructions Recorded Confirmed Type Butalb/APAP/Caff 50-325-40Mg 1 tab PO Q8H PRN 09/28/15 04/23/18 History [Fioricet 50-325-40] Nitroglycerin Sl Tabs [Nitrostat] 0.4 mg SUBLINGUAL Q5M PRN 01/25/16 04/23/18 History Atorvastatin Calcium [Lipitor] 20 mg PO HS 09/17/16 04/23/18 History Topiramate 50 mg PO BID 02/11/18 04/23/18 History Aspirin 81 mg PO HS 04/01/18 04/23/18 History Diltiazem Cd [Cardizem CD] 120 mg PO HS 04/01/18 04/23/18 History DULoxetine HCL [Cymbalta] 60 mg PO DAILY 04/02/18 04/23/18 History Meclizine [Antivert] 25 mg PO BID 04/02/18 04/23/18 History Warfarin Sodium [Coumadin] 5 mg PO HS 04/22/18 04/23/18 History HYDROcodone/APAP 10-325MG [[place] 1 tab PO Q8H PRN #0 04/23/18 04/23/18 Rx 10-325] Allergies Allergy/AdvReac Type Severity Reaction Status Date / Time hydrogen peroxide Allergy rash and Verified 04/23/18 01:19 skin burn Latex, Natural Rubber Allergy Swelling Verified 04/23/18 01:19 metronidazole Allergy Unknown Verified 04/23/18 01:19 fentanyl AdvReac decreased Verified 04/23/18 01:19 bp isosorbide AdvReac Rapid Verified 04/23/18 01:19 Heart Rate Physical Exam Vitals: Vital Signs Temp Pulse Pulse Resp BP BP Pulse Ox 04/23/18 12:00 53 L 16 04/23/18 08:00 53 L 16 04/23/18 07:21 98.9 F 53 L 16 108/59 99 04/23/18 03:45 97.8 F 60 16 105/61 97 04/23/18 03:38 16 04/23/18 02:07 16 04/23/18 01:19 97.6 F 64 16 115/68 98 04/23/18 00:59 67 18 111/59 100 04/22/18 23:50 97.5 F L 04/22/18 23:28 75 18 118/71 100 04/22/18 21:33 60 18 120/65 99 04/22/18 19:27 97.0 F L 66 17 84/50 100 Intake and Output 04/22/18 04/23/18 04/23/18 22:59 06:59 14:59 Other: Voiding Method Toilet # Voids 1 Weight 58.967 kg 58.9 kg PHYSICAL EXAMINATION: Patient is lying in the bed comfortably, no acute distress, awake alert and oriented.. HEENT: Normocephalic. Neck is supple. Pupils reactive. Nostrils clear. Oral cavity is moist. Ears reveal no drainage. Neck reveals no JVD, carotid bruits, or thyromegaly. CHEST EXAMINATION: Trachea is central. Symmetrical expansion. Lung dangelo clear to auscultation and percussion. CARDIAC: Normal S1, S2 with no gallops. No murmurs ABDOMEN: Soft. Bowel sounds normal. No organomegaly. No abdominal bruits. Extremities: reveal no edema. No clubbing or cyanosis Neurologically awake, alert, oriented x3 with well-coordinated movements. No focal deficits noted Skin: No rash or skin lesions. Psychiatric: Coperative. Nonsuicidal Musculoskeletal: No joint swelling or deformity. Normal range of motion. Results CBC & Chem 7: 04/22/18 19:41 04/22/18 19:41 Labs: Abnormal Lab Results - Last 24 Hours (Table) 04/22/18 04/22/18 04/22/18 Range/Units 19:41 19:41 21:44 PT 23.2 H (9.0-12.0) sec INR 2.6 H (<1.2) Sodium 136 L (137-145) mmol/L Total Bilirubin 0.1 L (0.2-1.3) mg/dL Total Protein 5.3 L (6.3-8.2) g/dL Albumin 3.2 L (3.5-5.0) g/dL Urine Opiates Screen Detected H (NotDetected) U Marijuana (THC) Screen Detected H (NotDetected) Thrombosis Risk Factor Assmnt - Choose All That Apply Each Factor Represents 1 point: Age 41-60 years Each Risk Factor Represents 3 Points: History of DVT/PE Thrombosis Risk Factor Assessment Total Risk Factor Score: 4 Thrombosis Risk Factor Assessment Level: Moderate Risk Assessment and Plan Assessment: Syncope likely due to hypotension and possible orthostatic UDS positive for marijuana and opiates Recurrence syncopal episodes Migraine headache GERD Hyperlipidemia History of PE 2 on long-term antibiotic coagulation Chronic back pain and bilateral knee pain osteoporosis IBS To PD stable Anxiety depression and claustrophobia Current every day smoker Plan: Patient be continued on telemetry monitoring. Troponin negative. Currently patient is symptomatic. Patient had cardiac workup done recently. Continued on home medications and follow closely. Further conditions based on the clinical course. Smoking cessation was counseled extensively. Time with Patient: Greater than 30
--- NOTE | 2018-04-24 00:53 | P.DS ---
Providers Date of admission: 04/22/18 22:57 Attending physician: Rachid Hartley MD Primary care physician: Pinky [facility] Course: Discharge diagnosis Syncope likely due to hypotension and possible orthostatic UDS positive for marijuana and opiates Recurrence syncopal episodes Migraine headache GERD Hyperlipidemia History of PE 2 on long-term antibiotic coagulation Chronic back pain and bilateral knee pain osteoporosis IBS To PD stable Anxiety depression and claustrophobia Current every day smoker Hospital course Patient was continued on telemetry monitoring. EKG showed no ST-T wave changes. Troponins are negative. Otherwise patient is asymptomatic. Continued on home medications. Patient is to be discharged home and threatening to leave AMA. Patient was advised to follow-up with cardiology and neurology clinic. Patient is stable at at this time. Smoking cessation and marijuana use was counseled extensively. Please refer to my H&P for full details. Discharge physical examination was done and vitals reviewed. Plan - Discharge Summary New Discharge Prescriptions: Continue Butalb/APAP/Caff 50-325-40Mg [Fioricet 50-325-40] 1 tab PO Q8H PRN PRN Reason: Migraine Headache Nitroglycerin Sl Tabs [Nitrostat] 0.4 mg SUBLINGUAL Q5M PRN PRN Reason: Pain Atorvastatin Calcium [Lipitor] 20 mg PO HS Topiramate 50 mg PO BID Diltiazem Cd [Cardizem CD] 120 mg PO HS Aspirin 81 mg PO HS Meclizine [Antivert] 25 mg PO BID DULoxetine HCL [Cymbalta] 60 mg PO DAILY Warfarin Sodium [Coumadin] 5 mg PO HS Changed HYDROcodone/APAP 10-325MG [[place] 10-325] 1 tab PO Q8H PRN #0 PRN Reason: Pain Discharge Medication List Butalb/APAP/Caff 50-325-40Mg [Fioricet 50-325-40] 1 tab PO Q8H PRN 09/28/15 [ History] Nitroglycerin Sl Tabs [Nitrostat] 0.4 mg SUBLINGUAL Q5M PRN 01/25/16 [History] Atorvastatin Calcium [Lipitor] 20 mg PO HS 09/17/16 [History] Topiramate 50 mg PO BID 02/11/18 [History] Aspirin 81 mg PO HS 04/01/18 [History] Diltiazem Cd [Cardizem CD] 120 mg PO HS 04/01/18 [History] DULoxetine HCL [Cymbalta] 60 mg PO DAILY 04/02/18 [History] Meclizine [Antivert] 25 mg PO BID 04/02/18 [History] Warfarin Sodium [Coumadin] 5 mg PO HS 04/22/18 [History] HYDROcodone/APAP 10-325MG [[place] 10-325] 1 tab PO Q8H PRN #0 04/23/18 [Rx] Follow up Appointment(s)/Referral(s): Pinky Becker MD [Primary Care Provider] - 1-2 days Activity/Diet/Wound Care/Special Instructions: please follow up with embedded software manager Discharge Disposition: HOME SELF-CARE
== END 2018-04-23 12:33 | disposition home or self-care (01) ==
LOC: EC 19:21 → 3OBS 22:57
PROVIDERS: ADMIT Internal Medicine; ATTEND Internal Medicine
DX: R55 Syncope and collapse (principal); I95.9 Hypotension, unspecified; G43.909 Migraine, unspecified, not intractable, without status migrainosus; K21.9 Gastro-esophageal reflux disease without esophagitis; E78.5 Hyperlipidemia, unspecified; M81.0 Age-related osteoporosis without current pathological fracture; K58.9 Irritable bowel syndrome, unspecified; G89.29 Other chronic pain; M25.561 Pain in right knee; M25.562 Pain in left knee; F17.200 Nicotine dependence, unspecified, uncomplicated; M54.9 Dorsalgia, unspecified; J44.9 Chronic obstructive pulmonary disease, unspecified; S09.90XA Unspecified injury of head, initial encounter; W18.39XA Other fall on same level, initial encounter; Y92.481 Parking lot as the place of occurrence of the external cause; Z90.49 Acquired absence of other specified parts of digestive tract; F40.240 Claustrophobia; F41.9 Anxiety disorder, unspecified; F32.9 Major depressive disorder, single episode, unspecified; F12.90 Cannabis use, unspecified, uncomplicated; Z79.82 Long term (current) use of aspirin; Z79.899 Other long term (current) drug therapy; Z79.01 Long term (current) use of anticoagulants; Z88.5 Allergy status to narcotic agent; Z88.8 Allergy status to other drugs, medicaments and biological substances; Z88.1 Allergy status to other antibiotic agents; Z91.040 Latex allergy status; Z86.73 Personal history of transient ischemic attack (TIA), and cerebral infarction without residual deficits; Z86.718 Personal history of other venous thrombosis and embolism; Z87.01 Personal history of pneumonia (recurrent); Z86.711 Personal history of pulmonary embolism; Z82.5 Family history of asthma and other chronic lower respiratory diseases; Z82.49 Family history of ischemic heart disease and other diseases of the circulatory system; Z80.1 Family history of malignant neoplasm of trachea, bronchus and lung; Z82.3 Family history of stroke; Z81.1 Family history of alcohol abuse and dependence
CPT/HCPCS: 99285 ×2; 96360 ×2; 36415; 93005; 86900; 86901; 80053; 82550; 82553; 84484; 85025; 85610; 85730; 86850; 81003; 80306; 80320; 72170; 71045; 72125; 70450; G0378 ×2

== ENCOUNTER 2019-04-22 10:34 | Observation (INO) | payer MEDICARE ==
[2019-04-22 11:09] LABS: Basophils # (A) 0.1 k/uL (0-0.2); Basophils % (A) 1 %; Eosinophils # (A) 0.2 k/uL (0-0.7); Eosinophils % (A) 2 %; HCT 37.2 % (34.0-46.0); HGB 12.7 gm/dL (11.4-16.0); Lymphocytes # (A) 2.5 k/uL (1.0-4.8); Lymphocytes % (A) 36 %; MCH 29.8 pg (25.0-35.0); MCHC 34.1 g/dL (31.0-37.0); MCV 87.5 fL (80.0-100.0); Mean Platelet Volume 8.5; Monocytes # (A) 0.3 k/uL (0-1.0); Monocytes % (A) 4 %; Neutrophils # (A) 3.8 k/uL (1.3-7.7); Neutrophils % (A) 55 %; Platelet Count 214 k/uL (150-450); RBC 4.25 m/uL (3.80-5.40)
[2019-04-22 11:24] LABS: INR 0.9 (<1.2); Partial Thromboplastin Time 23.4 sec (22.0-30.0); Prothrombin Time 9.6 sec (9.0-12.0)
[2019-04-22 11:26] LABS: ALT 21 U/L (9-52); AST 17 U/L (14-36); African American GFR (CKD) >90 (>60 ml/min/1.73 sqM); Albumin 3.5 g/dL (3.5-5.0); Alkaline Phosphatase 79 U/L (38-126); Anion Gap 7 mmol/L; Blood Urea Nitrogen 7 mg/dL (7-17); Carbon Dioxide 23 mmol/L (22-30); Chloride 105 mmol/L (98-107); Glucose 91 mg/dL (74-99); Lipase 143 U/L (23-300); Sodium 135 mmol/L (137-145); Total Bilirubin 0.3 mg/dL (0.2-1.3); Total Protein 5.9 g/dL (6.3-8.2)
--- NOTE | 2019-04-22 11:28 | CT ---
EXAMINATION TYPE: CT brain wo con DATE OF EXAM: 04/22/2019 COMPARISON: 04/22/2018 INDICATION: Pain headache dizziness blurred vision DLP: 1082.4 mGycm, Automated exposure control for dose reduction was used. CONTRAST: None CT of the brain is performed utilizing 3 mm thick sections through the posterior fossa and 3 mm thick sections through the remaining calvarium. Study is performed within 24 hours of arrival to the hosp [facility]. No abnormal hyperdensity is present to suggest an acute intracranial hemorrhage. No mass lesion is evident. No acute infarcts are evident. Virchow-Lv space or old lacunar infarct within the inferior right b balbir ganglion is present, present previously. Ventricles and sulci are appropriate for the patient age. Some mild fluid is in the inferior right mastoid air cells. No septal destruction is evident. IMPRESSIONS: 1. No acute intracranial process. Over 2 clinical consideration for mild right mastoiditis is recom mended
--- NOTE | 2019-04-22 11:49 | XR ---
EXAMINATION TYPE: XR chest 2V DATE OF EXAM: 04/22/2019 COMPARISON: 04/22/2018 INDICATION: Chest pain TECHNIQUE: Frontal and lateral views of the chest are obtained. FINDINGS: The heart size is normal. The pulmonary vasculature is normal. Minimal plate atelectasis at the left base.. IMPRESSION: 1. Minimal left basilar plate atelectasis. 2. No acute pulmonary process otherwise evident.
[2019-04-22] MEDS ORDERED: ACETAMINOPHEN TAB 325 MG TAB PO STA (12:05)
[2019-04-22] MEDS ORDERED: ONDANSETRON 4 MG/2 ML VIAL IVP STA (12:25)
--- NOTE | 2019-04-22 13:20 | ED ---
Chest Pain HPI - General Chief Complaint: Chest Pain Stated Complaint: Chest pain Time Seen by Provider: 04/22/19 10:34 Source: patient, EMS, RN notes reviewed Mode of arrival: EMS Limitations: no limitations - History of Present Illness Initial Comments: This is a 50-year-old female history of heart disease who states she had answered chest pain this morning about 30 minutes prior to arrival which did ultimately resolve after nitroglycerin. She also complains of a headache some nausea and diaphoresis. He also has some dizziness. Complains of a headache at this time also she's had decreased oral intake. States she's had some alert but from her vagina she states she has had a period in many years. She is on Xarelto this time for a history of PE. She currently is still a smoker. MD Complaint: chest pain, other - Related Data Home Medications Medication Instructions Recorded Confirmed DULoxetine HCL [Cymbalta] 60 mg PO HS 04/02/18 04/22/19 Ibuprofen [Motrin Ib] 600 mg PO Q6H PRN 04/22/19 04/22/19 Allergies Allergy/AdvReac Type Severity Reaction Status Date / Time hydrogen peroxide Allergy rash and Verified 04/22/19 11:05 skin burn Latex, Natural Rubber Allergy Swelling Verified 04/22/19 11:05 metronidazole Allergy Unknown Verified 04/22/19 11:05 fentanyl AdvReac decreased Verified 04/22/19 11:05 bp isosorbide AdvReac Rapid Verified 04/22/19 11:05 Heart Rate Review of Systems ROS Statement: Those systems with pertinent positive or pertinent negative responses have been documented in the HPI. ROS Other: All systems not noted in ROS Statement are negative. EKG Findings - EKG Results: EKG: interpreted by JULIANO, sinus rhythm (Normal sinus rhythm a 69 MA interval 128 QRS duration 82 QT since QTC 42/4:[address]-T wave changes.) Past Medical History Past Medical History: Chest Pain / Angina, COPD, Deep Vein Thrombosis (DVT), Eye Disorder, GERD/Reflux, Hyperlipidemia, Pneumonia, Pulmonary Embolus (PE) Additional Past Medical History / Comment(s): Chronic back and bilateral knee pain, "low BP", DVT right thigh, bilateral PEs in 2010 and 2014, migraines, osteoporosis, IBS, VERTIGO, DDD, cervical and back NERVE DAMAGE GETS TRIGGER POINT SHOTS, cataract L eye.past stress test. History of Any Multi-Drug Resistant Organisms: None Reported Past Surgical History: Appendectomy, Cholecystectomy, Heart Catheterization Additional Past Surgical History / Comment(s): EGD/COLONOSCOPY/POLYPECTOMY- BENIGN, cardiac cath 06/10/16-normal, back/bilateral knee injections. epidural steroid inj -back Past Anesthesia/Blood Transfusion Reactions: No Reported Reaction Additional Past Anesthesia/Blood Transfusion Reaction / Comment(s): Pt has clausterphobia. Past Psychological History: Anxiety, Depression Smoking Status: Current every day smoker Past Alcohol Use History: None Reported Past Drug Use History: Marijuana - Past Family History Mother Family Medical History: Cancer, COPD, Hypertension Additional Family Medical History / Comment(s): Mother of LUNG CANCER at the age of 74yrs. Father Family Medical History: CVA/TIA, Hypertension Additional Family Medical History / Comment(s): Father had 2 CVAs and from the second one at the age of 52yrs. He was an alcoholic. General Exam Limitations: no limitations Course Vital Signs 04/22/19 04/22/19 04/22/19 10:36 11:37 12:24 Temperature 98.3 F Pulse Rate 73 79 83 Respiratory 16 18 18 Rate Blood Pressure 126/76 121/82 117/69 O2 Sat by Pulse 97 97 99 Oximetry Procedures - Smoking Cessation Time Spent Discussing Smoking Cessation w/Patient (Minutes): 3 Patient Acknowledges Need for Cessation: Yes Chest Pain MDM - MDM I did review the imaging and report no acute findings. I did discuss findings with the patient and with Dr. Cotto. Patient will be admitted for evaluation by cardiology. Additionally she'll and will be consulted visit vaginal bleeding Disposition Clinical Impression: Unstable angina, Vaginal bleeding Disposition: ADMITTED IP TO THIS HOSP Condition: Fair Referrals: Pinky Becker MD [Primary Care Provider] - 1-2 days
[2019-04-22] MEDS ORDERED: NITROGLYCERIN SL TABS 0.4 MG TAB SUBLINGUAL PRN (13:22)
[2019-04-22] MEDS ORDERED: BUTALB/APAP/CAFF 50-325-40MG TAB PO STA (15:21)
[2019-04-22] MEDS ORDERED: IBUPROFEN 200 MG TAB PO PRN (15:27)
--- NOTE | 2019-04-22 15:34 | P.HPIM ---
History of Present Illness 58-year-old female came in with compensative chest pain is started today morning lasted for about the an hour constant left-sided sharp in nature nonradiating associated with nausea lightheadedness diaphoresis to 2 doses of nitroglycerin with improvement in her symptoms nonexertional chest pain not associated with food not associated with deep breathing. I was told patient has history of pulmonary embolism is on Eliquis although I don't see it in her on her medication list to have to verify with the patient was comparing of some dizziness to but this dizziness is, in from her migraine headache patient is comparing of severe migraine headache which has been going on even before she came to ER she had a vaginal discharge and the vaginal bleeding patient never had periods since age 37. Patient denied any fever chills vomiting abdominal pain. Patient denied any cough. Patient does smoke doesn't use any oxygen does have history of COPD Review of Systems REVIEW OF SYSTEMS: CONSTITUTIONAL: No fever, no malaise, no fatigue. HEENT: No recent visual problems or hearing problems. Denied any sore throat. CARDIOVASCULAR: No orthopnea, PND, no palpitations, no syncope. PULMONARY: No shortness of breath, no cough, no hemoptysis. GASTROINTESTINAL: No diarrhea, no nausea, no vomiting, no abdominal pain. NEUROLOGICAL: \\ no weakness, no numbness. HEMATOLOGICAL: Denies any bleeding or petechiae. GENITOURINARY: Denies any burning micturition, frequency, or urgency. MUSCULOSKELETAL/RHEUMATOLOGICAL: Denies any joint pain, swelling, or any muscle pain. ENDOCRINE: Denies any polyuria or polydipsia. The rest of the 14-point review of systems is negative. Past Medical History Past Medical History: Chest Pain / Angina, COPD, Deep Vein Thrombosis (DVT), Eye Disorder, GERD/Reflux, Hyperlipidemia, Pneumonia, Pulmonary Embolus (PE), Syncope Additional Past Medical History / Comment(s): Chronic back and bilateral knee p ain, DDD, cervical/back "nerve damage", "low BP", DVT right thigh, bilateral PEs in 2010 and 2014, migraines, osteoporosis, IBS, vertigo at times, R wrist 2 cysts, pt states since cataract surgery her vision has declined. History of Any Multi-Drug Resistant Organisms: None Reported Past Surgical History: Appendectomy, Cholecystectomy, Heart Catheterization Additional Past Surgical History / Comment(s): EGD/COLONOSCOPY/POLYPECTOMY- BENIGN, cardiac cath 06/10/16-normal, back/bilateral knee injections. epidural steroid inj -back, bilateral cataract removals/lens implants. Past Anesthesia/Blood Transfusion Reactions: No Reported Reaction Additional Past Anesthesia/Blood Transfusion Reaction / Comment(s): Pt has clausterphobia. Smoking Status: Current every day smoker - Past Family History Mother Family Medical History: Cancer, COPD, Hypertension Additional Family Medical History / Comment(s): Mother of LUNG CANCER at the age of 74yrs. Father Family Medical History: CVA/TIA, Hypertension Additional Family Medical History / Comment(s): Father had 2 CVAs and from the second one at the age of 52yrs. He was an alcoholic. Medications and Allergies Home Medications Medication Instructions Recorded Confirmed Type DULoxetine HCL [Cymbalta] 60 mg PO HS 04/02/18 04/22/19 History Ibuprofen [Motrin Ib] 600 mg PO Q6H PRN 04/22/19 04/22/19 History Allergies Allergy/AdvReac Type Severity Reaction Status Date / Time hydrogen peroxide Allergy rash and Verified 04/22/19 11:05 skin burn Latex, Natural Rubber Allergy Swelling Verified 04/22/19 11:05 metronidazole Allergy Unknown Verified 04/22/19 11:05 fentanyl AdvReac decreased Verified 04/22/19 11:05 bp isosorbide AdvReac Rapid Verified 04/22/19 11:05 Heart Rate Physical Exam Vitals: Vital Signs Temp Pulse Resp BP Pulse Ox 04/22/19 12:24 83 18 117/69 99 04/22/19 11:37 79 18 121/82 97 04/22/19 10:36 98.3 F 73 16 126/76 97 Intake and Output 04/22/19 04/22/19 04/22/19 06:59 14:59 22:59 Other: Weight 64.864 kg PHYSICAL EXAMINATION: GENERAL: The patient is alert and oriented x3, not in any acute distress. Well developed, well nourished. HEENT: Pupils are round and equally reacting to light. EOMI. No scleral icterus. No conjunctival pallor. Normocephalic, atraumatic. No pharyngeal erythema. No thyromegaly. CARDIOVASCULAR: S1 and S2 present. No murmurs, rubs, or gallops. PULMONARY: Chest is clear to auscultation, no wheezing or crackles. ABDOMEN: Soft, nontender, nondistended, normoactive bowel sounds. No palpable organomegaly. MUSCULOSKELETAL: No joint swelling or deformity. EXTREMITIES: No cyanosis, clubbing, or pedal edema. NEUROLOGICAL: Gross neurological examination did not reveal any focal deficits. SKIN: No rashes. Results CBC & Chem 7: 04/22/19 10:54 04/22/19 10:54 Labs: Abnormal Lab Results - Last 24 Hours (Table) 04/22/19 Range/Units 10:54 Sodium 135 L (137-145) mmol/L Total Protein 5.9 L (6.3-8.2) g/dL Thrombosis Risk Factor Assmnt - Choose All That Apply Any of the Below Risk Factors Present?: Yes Each Factor Represents 1 point: Abnormal pulmonary function (COPD), Age 41-60 y ears Other Risk Factors: Yes Each Risk Factor Represents 3 Points: History of DVT/PE Other congenital or acquired thrombophilia - If yes, enter type in comment: No Thrombosis Risk Factor Assessment Total Risk Factor Score: 5 Thrombosis Risk Factor Assessment Level: High Risk Assessment and Plan Plan: -Chest pain: We will rule out acute coronary syndromes, unstable angina facet of troponin is negative EKG showed sinus rhythm without any acute ST-T wave changes. Cardiology was consulted. -History of migraine with active migraine headaches for which we'll use nonsteroidal anti-inflammatories, Fioricet patient will be resumed on her Topamax once his medications verified -History of pulmonary embolism for which patient and anti-correlation apparently although these medications are not verified it was a verified Need to be reconciled -Gastroesophageal reflux disease -Hyperlipidemia -COPD without any acute exacerbation continued nicotine use for which counseling was provided -Vaginal bleed, concern for endometrial hyperplasia, gynecology was consulted -Anxiety and depression.
[2019-04-22 16:32] LABS: Basophils # (A) 0.1 k/uL (0-0.2); Basophils % (A) 1 %; Eosinophils # (A) 0.1 k/uL (0-0.7); Eosinophils % (A) 2 %; HCT 36.7 % (34.0-46.0); HGB 12.3 gm/dL (11.4-16.0); Lymphocytes # (A) 2.5 k/uL (1.0-4.8); Lymphocytes % (A) 36 %; MCH 29.9 pg (25.0-35.0); MCHC 33.5 g/dL (31.0-37.0); MCV 89.1 fL (80.0-100.0); Mean Platelet Volume 8.5; Monocytes # (A) 0.2 k/uL (0-1.0); Monocytes % (A) 4 %; Neutrophils # (A) 3.7 k/uL (1.3-7.7); Neutrophils % (A) 56 %; Platelet Count 189 k/uL (150-450); RBC 4.12 m/uL (3.80-5.40); RDW 14.5 % (11.5-15.5); WBC 6.7 k/uL (3.8-10.6)
[2019-04-22] MEDS: SODIUM CHLORIDE 0.9% 1,000 ML IV SCH (17:02)
--- NOTE | 2019-04-22 19:48 | US ---
EXAMINATION TYPE: US transvaginal DATE OF EXAM: 04/22/2019 COMPARISON: CT 2014 CLINICAL HISTORY: postmenopausal bleeding. Postmenopausal bleeding x 1 day. Hx D and C. Hx ovarian cy st. . A3. TECHNIQUE: Transvaginal (TV). Date of LMP: Unknown EXAM MEASUREMENTS: Uterus: 5.4 x 4.5 x 2.6 cm Endometrial Stripe: 0.54 containing fluid cm. Anterior: 0.15 cm. Posterior: 0.14 cm. Right Ovary: Not seen. Peristalsis seen throughout right adnexa Left Ovary: Not seen 1. Uterus: Retroverted appears wnl 2. Endometrium: Anechoic fluid seen within endometrium. Upper endometrial fluid measures: 1.2 x 0.9 x 0.2 cm. 3. Right Ovary: Not seen 4. Left Ovary: Not seen 5. Bilateral Adnexa: appears wnl. Bowel peristalsis seen. 6. Posterior cul-de-sac: appears wnl IMPRESSION: There is tiny amount of endometrial fluid. No adnexal mass. No free fluid in the cul-de-s ac. No endometrial thickening..
[2019-04-22] MEDS: BUTALB/APAP/CAFF 50-325-40MG TAB PO PRN (19:54)
[2019-04-22] MEDS: FAMOTIDINE 20 MG TAB PO SCH (20:19)
[2019-04-22] MEDS ORDERED: DULoxetine HCL 60 MG CAPSULE.DR PO SCH (21:00)
[2019-04-23 06:36] LABS: African American GFR (CKD) >90 (>60 ml/min/1.73 sqM); Anion Gap 3 mmol/L; Blood Urea Nitrogen 9 mg/dL (7-17); Calcium 8.9 mg/dL (8.4-10.2); Carbon Dioxide 26 mmol/L (22-30); Chloride 106 mmol/L (98-107); Cholesterol 207 mg/dL (<200); Glucose 87 mg/dL (74-99); HDL Cholesterol 48 mg/dL (40-60); LDL Cholesterol,Calculated 146 mg/dL (0-99); Potassium 4.7 mmol/L (3.5-5.1); Sodium 135 mmol/L (137-145); Triglycerides 65 mg/dL (<150)
[2019-04-23] MEDS: FAMOTIDINE 20 MG TAB PO SCH (07:27)
[2019-04-23] MEDS: BUTALB/APAP/CAFF 50-325-40MG TAB PO PRN ×2 (07:27→12:17)
[2019-04-23 07:33] VITALS: TEMP 98.2
--- NOTE | 2019-04-23 08:14 | P.CRDCN ---
History of Present Illness Consult date: 04/23/19 Requesting physician: Sher Cotto Consult reason: chest pain Chief complaint: Headache, chest pain, dizziness History of present illness: This is a 58-year-old female with history of nicotine dependence, COPD, anxiety, bipolar, schizophrenia, PTSD, history of pulmonary embolism, family history of premature coronary artery disease, hyperlipidemia, who presents to the hospital with symptoms of midsternal chest discomfort. According to the patient she's been dealing with migraines which she is known to have a history of skin she was child, she states that she was dealing with a migraine headache, developed a sharp stabbing pain in the center of her chest and became very dizzy, she stood up to take a sublingual nitroglycerin which she states are approximately 3 years old, just prior to that she became extremely diaphoretic. Patient states she did not pass out but felt very lightheaded and dizzy. The pain in her chest she states comes and goes, it does not worsen with deep breathing or on palpation of the chest wall. She also states that intermittently she feels her heart racing fast and gets mildly dizzy. The patient states she did have a cardiac catheterization performed in 2016, this was reviewed, revealed normal coronary arteries with suspicion of spasm in the distal LAD and patient was put on Cardizem at that time. Chest x-ray on presentation here showed minimal left basilar atelectasis. CAT scan of the brain did not reveal any acute intracranial process. EKG shows normal sinus rhythm with no acute changes. Patient had been having some postmenopausal bleeding and for this reason an ultrasound vaginally was performed, it showed a tiny amount of endometrial fluid, no masses, no free fluid and no endometrial thickening. Blood pressure 112/50 with a heart rate in the 70s, 92% on room air. CBC is normal, sodium 135, potassium 4.7, BUN 9 and creatinine 0.7. Troponins are negative 3, cholesterol 207, LDL 146, HDL 48, triglycerides 65. At the time of my examination this morning the patient is currently chest pain- free. Past Medical History Past Medical History: Chest Pain / Angina, COPD, Deep Vein Thrombosis (DVT), Eye Disorder, GERD/Reflux, Hyperlipidemia, Pneumonia, Pulmonary Embolus (PE), Syn cope Additional Past Medical History / Comment(s): Chronic back and bilateral knee pain, DDD, cervical/back "nerve damage", "low BP", DVT right thigh, bilateral PEs in 2010 and 2014, migraines, osteoporosis, IBS, vertigo at times, R wrist 2 cysts, pt states since cataract surgery her vision has declined. History of Any Multi-Drug Resistant Organisms: None Reported Past Surgical History: Appendectomy, Cholecystectomy, Heart Catheterization Additional Past Surgical History / Comment(s): EGD/COLONOSCOPY/POLYPECTOMY- BENIGN, cardiac cath 06/10/16-normal, back/bilateral knee injections. epidural st eroid inj -back, bilateral cataract removals/lens implants. Past Anesthesia/Blood Transfusion Reactions: No Reported Reaction Additional Past Anesthesia/Blood Transfusion Reaction / Comment(s): Pt has clausterphobia. Smoking Status: Current every day smoker - Past Family History Mother Family Medical History: Cancer, COPD, Hypertension Additional Family Medical History / Comment(s): Mother of LUNG CANCER at the age of 74yrs. Father Family Medical History: CVA/TIA, Hypertension Additional Family Medical History / Comment(s): Father had 2 CVAs and from the second one at the age of 52yrs. He was an alcoholic. Medications and Allergies Home Medications Medication Instructions Recorded Confirmed Type DULoxetine HCL [Cymbalta] 60 mg PO HS 04/02/18 04/22/19 History Diltiazem HCl [Cardizem] 120 mg PO HS 04/22/19 04/22/19 History HYDROcodone/APAP 10-325MG [Cuthbert 10 - 325 mg PO Q8HR PRN 04/22/19 04/22/19 History 10-325] Ibuprofen [Motrin Ib] 600 mg PO Q6H PRN 04/22/19 04/22/19 History Rivaroxaban [Xarelto] 20 mg PO HS 04/22/19 04/22/19 History Topiramate [Topamax] 50 mg PO BID 04/22/19 04/22/19 History Allergies Allergy/AdvReac Type Severity Reaction Status Date / Time hydrogen peroxide Allergy rash and Verified 04/22/19 11:05 skin burn Latex, Natural Rubber Allergy Swelling Verified 04/22/19 11:05 metronidazole Allergy Unknown Verified 04/22/19 11:05 fentanyl AdvReac decreased Verified 04/22/19 11:05 bp isosorbide AdvReac Rapid Verified 04/22/19 11:05 Heart Rate Physical Exam Vitals: Vital Signs Temp Pulse Pulse Resp BP BP Pulse Ox 04/23/19 07:33 70 16 04/23/19 07:31 98.2 F 70 16 113/54 92 L 04/23/19 04:10 98.7 F 74 18 97/61 94 L 04/22/19 23:40 98.4 F 63 16 98/59 95 04/22/19 20:00 97.8 F 61 16 113/58 96 04/22/19 19:30 16 04/22/19 16:45 98.1 F 60 16 110/69 95 04/22/19 16:37 98.4 F 87 18 120/67 97 04/22/19 15:42 75 18 103/63 99 04/22/19 12:24 83 18 117/69 99 04/22/19 11:37 79 18 121/82 97 04/22/19 10:36 98.3 F 73 16 126/76 97 Intake and Output 04/22/19 04/23/19 04/23/19 22:59 06:59 14:59 Other: Voiding Method Toilet Toilet Toilet # Voids 1 Weight 66.2 kg PHYSICAL EXAMINATION: GENERAL: 58-year-old female in distress at the time of my examination HEENT: Head is atraumatic, normocephalic. Pupils equal, round. Sclera anicteric. Conjunctiva are clear. Mucous membranes of the mouth are moist. Neck is supple. There is no elevated jugular venous pressure. No carotid bruit is heard. HEART EXAMINATION: Heart S1, S2 normal. No murmur or gallop heard. CHEST EXAMINATION: Lungs are clear to auscultation and precussion. No chest wall tenderness is noted on palpation or with deep breathing. ABDOMEN: Soft, nontender. Bowel sounds are heard. No organomegaly noted. EXTREMITIES: 2+ peripheral pulses with no evidence of peripheral edema and no calf tenderness noted. NEUROLOGIC patient is awake, alert and oriented 3 . . Results 04/22/19 16:19 04/23/19 05:43 Cardiac Enzymes 04/22/19 04/22/19 04/22/19 Range/Units 10:54 10:54 16:19 AST 17 (14-36) U/L Troponin I <0.012 <0.012 (0.000-0.034) ng/mL 04/22/19 Range/Units 23:25 AST (14-36) U/L Troponin I <0.012 (0.000-0.034) ng/mL Coagulation 04/22/19 Range/Units 10:54 PT 9.6 (9.0-12.0) sec APTT 23.4 (22.0-30.0) sec Lipids 04/23/19 Range/Units 05:43 Triglycerides 65 (<150) mg/dL Cholesterol 207 H (<200) mg/dL HDL Cholesterol 48 (40-60) mg/dL CBC 04/22/19 04/22/19 Range/Units 10:54 16:19 WBC 7.0 6.7 (3.8-10.6) k/uL RBC 4.25 4.12 (3.80-5.40) m/uL Hgb 12.7 12.3 (11.4-16.0) gm/dL Hct 37.2 36.7 (34.0-46.0) % Plt Count 214 189 (150-450) k/uL Comprehensive Metabolic Panel 04/22/19 04/23/19 Range/Units 10:54 05:43 Sodium 135 L 135 L (137-145) mmol/L Potassium 4.0 4.7 (3.5-5.1) mmol/L Chloride 105 106 (98-107) mmol/L Carbon Dioxide 23 26 (22-30) mmol/L BUN 7 9 (7-17) mg/dL Creatinine 0.68 0.74 (0.52-1.04) mg/dL Glucose 91 87 (74-99) mg/dL Calcium 9.0 8.9 (8.4-10.2) mg/dL AST 17 (14-36) U/L ALT 21 (9-52) U/L Alkaline Phosphatase 79 (38-126) U/L Total Protein 5.9 L (6.3-8.2) g/dL Albumin 3.5 (3.5-5.0) g/dL Current Medications Generic Name Dose Route Start Last Admin Trade Name Freq PRN Reason Stop Dose Admin Acetaminophen/Butalbital/Caffeine 1 each 04/22/19 15:26 04/23/19 07:27 Fioricet 50-325-40 PO 1 each Q4HR PRN Administration Headache Aspirin 325 mg 04/23/19 09:00 04/23/19 07:27 Aspirin PO 325 mg DAILY RHEA Administration Duloxetine HCl 60 mg 04/22/19 21:00 04/22/19 20:19 Cymbalta PO 60 mg HS RHEA Administration Famotidine 20 mg 04/22/19 21:00 04/23/19 07:27 Pepcid PO 20 mg BID RHEA Administration Sodium Chloride 1,000 mls @ 20 mls/hr 04/22/19 13:30 04/22/19 17:02 Saline 0.9% IV 20 mls/hr .Q24H RHEA Administration Ibuprofen 600 mg 04/22/19 15:27 Advil PO Q6H PRN Pain Nitroglycerin 0.4 mg 04/22/19 13:22 Nitrostat SUBLINGUAL Q5M PRN Chest Pain Intake and Output 04/22/19 04/23/19 04/23/19 22:59 06:59 14:59 Other: Voiding Method Toilet Toilet Toilet # Voids 1 Weight 66.2 kg 04/22/19 16:19 04/23/19 05:43 EKG Interpretations (text) EKG shows normal sinus rhythm with no acute changes. Assessment and Plan Plan: Assessment and plan #1 chest pain, atypical for acute coronary syndrome. Troponins negative 3. EKG shows normal sinus rhythm with no acute changes. Patient had a cardiac catheterization in 2015 which did not reveal any significantly obstructive coronary artery disease, there was suspicion of spasm that time. #2 nicotine dependence #3 migraine headaches with associated dizziness #4 anxiety, bipolar, schizophrenia, PTSD #5 COPD #6 prior PE #7 family history of premature coronary artery disease Plan We will obtain an echocardiogram with Doppler study. Discontinue aspirin. Continue Cardizem, and initiate statin. Patient also has been advised regarding the importance of nicotine cessation, we will recommend patient undergo stress testing today. She also complains of intermittent heart racing and palpitations, we will need to monitor for any arrhythmias. Further recommendations to follow. DNP note has been reviewed, I agree with a documented findings and plan of care. Patient was seen and examined.
[2019-04-23] MEDS ORDERED: ASPIRIN 325 MG TAB PO SCH (09:00)
[2019-04-23] MEDS ORDERED: ATORVASTATIN 40 MG TAB PO SCH (09:00)
--- NOTE | 2019-04-23 09:24 | P.OBCN ---
History of Present Illness Consult date: 04/23/19 Requesting physician: Sher Cotto Reason for consult: other (Postmenopausal bleeding) Chief complaint: Post menopausal bleeding History of present illness: This is a 58-year-old female 6 para [id number] who presented to the emergency department with migraine symptoms and some chest pain. Please see history and physical for details of her cardiac complaints. She stated when she woke up yesterday morning she did have some blood in her underwear that had soaked her underwear. She denied any clots. She states once she got up to the bathroom and wiped there was no further bleeding. She has not noticed any further bleeding since that time. She states she went into menopause at age 37 but did have some intermittent spotting approximately every 6 months or so between age 37 and approximately 45. She had no bleeding up until approximately 1 year ago and then stated the same thing happened where she woke up with some blood in her underwear and then it went away. She did not see a doctor for this at that time. She did state that she would occasionally get some bleeding after intercourse but has not had intercourse in the last 8 years. Her last gynecologic exam was in March [address] San. According to his notes, her Pap smear was within normal limits. It is unclear when she last had any STD testing. She did have a pelvic ultrasound performed last night which showed normal endometrial thickness and some fluid in the upper and of the endometrium measuring 1.2 x 0.9 x 0.2 cm. Both adnexa appeared normal. The patient has been on Xarelto for history of bilateral PE and left DVT approximately 5 years ago. This was held when she was admitted but she was put on a full aspirin at that time. Stress test is pending today. Gynecologic history: She does have a history of chlamydia treated when she was younger. Obstetrical history: . History of 3 vaginal deliveries and 3 miscarriages. One of the miscarriages did require a D&C. Review of Systems All systems: negative Genitourinary: Reports abnormal vaginal bleeding, Reports vaginal discharge (Occasional white vaginal discharge), Denies pelvic pain, Denies Menstruation: Reports postmenopausal Past Medical History Past Medical History: Chest Pain / Angina, COPD, Deep Vein Thrombosis (DVT), Eye Disorder, GERD/Reflux, Hyperlipidemia, Pneumonia, Pulmonary Embolus (PE), Syncope Additional Past Medical History / Comment(s): Chronic back and bilateral knee pain, DDD, cervical/back "nerve damage", "low BP", DVT right thigh, bilateral PEs in 2010 and 2014, migraines, osteoporosis, IBS, vertigo at times, R wrist 2 cysts, pt states since cataract surgery her vision has declined. History of Any Multi-Drug Resistant Organisms: None Reported Past Surgical History: Appendectomy, Cholecystectomy, Heart Catheterization Additional Past Surgical History / Comment(s): EGD/COLONOSCOPY/POLYPECTOMY- BENIGN, cardiac cath 06/10/16-normal, back/bilateral knee injections. epidural steroid inj -back, bilateral cataract removals/lens implants. History of D&C. Past Anesthesia/Blood Transfusion Reactions: No Reported Reaction Additional Past Anesthesia/Blood Transfusion Reaction / Comm: Pt has clausterphobia. Past Psychological History: Bipolar, Depression, Schizophrenia Smoking Status: Current every day smoker (Greater than one pack per day) Past Alcohol Use History: None Reported Past Drug Use History: Marijuana (Daily) - Past Family History Mother Family Medical History: Cancer, COPD, Hypertension Additional Family Medical History / Comment(s): Mother of LUNG CANCER at the age of 74yrs. Father Family Medical History: CVA/TIA, Hypertension Additional Family Medical History / Comment(s): Father had 2 CVAs and from the second one at the age of 52yrs. He was an alcoholic. Medications and Allergies Home Medications Medication Instructions Recorded Confirmed Type DULoxetine HCL [Cymbalta] 60 mg PO HS 04/02/18 04/22/19 History Diltiazem HCl [Cardizem] 120 mg PO HS 04/22/19 04/22/19 History HYDROcodone/APAP 10-325MG [[place] 10 - 325 mg PO Q8HR PRN 04/22/19 04/22/19 History 10-325] Ibuprofen [Motrin Ib] 600 mg PO Q6H PRN 04/22/19 04/22/19 History Rivaroxaban [Xarelto] 20 mg PO HS 04/22/19 04/22/19 History Topiramate [Topamax] 50 mg PO BID 04/22/19 04/22/19 History Allergies Allergy/AdvReac Type Severity Reaction Status Date / Time hydrogen peroxide Allergy rash and Verified 04/22/19 11:05 skin burn Latex, Natural Rubber Allergy Swelling Verified 04/22/19 11:05 metronidazole Allergy Unknown Verified 04/22/19 11:05 fentanyl AdvReac decreased Verified 04/22/19 11:05 bp isosorbide AdvReac Rapid Verified 04/22/19 11:05 Heart Rate Exam Osteopathic Statement: *. No significant issues noted on an osteopathic structural exam other than those noted in the History and Physical/Consult. Vital Signs Temp Pulse Pulse Resp BP BP Pulse Ox 04/23/19 07:33 70 16 04/23/19 07:31 98.2 F 70 16 113/54 92 L 04/23/19 04:10 98.7 F 74 18 97/61 94 L 04/22/19 23:40 98.4 F 63 16 98/59 95 04/22/19 20:00 97.8 F 61 16 113/58 96 04/22/19 19:30 16 04/22/19 16:45 98.1 F 60 16 110/69 95 04/22/19 16:37 98.4 F 87 18 120/67 97 04/22/19 15:42 75 18 103/63 99 04/22/19 12:24 83 18 117/69 99 04/22/19 11:37 79 18 121/82 97 04/22/19 10:36 98.3 F 73 16 126/76 97 Intake and Output 04/22/19 04/23/19 04/23/19 22:59 06:59 14:59 Intake Total 480 Output Total 200 Balance 280 Intake: Intake, IV Titration 240 Amount Sodium Chloride 0.9% 1, 240 000 ml @ 20 mls/hr IV . Q24H [facility] Rx#:[id number] Oral 240 Output: Urine 200 Other: Voiding Method Toilet Toilet Toilet # Voids 1 1 Weight 66.2 kg Gen.: Well-developed well-nourished cooperative female in no acute distress. Pelvic exam: External genitalia appear normal with no bleeding noted. Internal pelvic exam is deferred to the office. Results Result Diagrams: 04/22/19 16:19 04/23/19 05:43 Abnormal Lab Results - Last 24 Hours (Table) 04/22/19 04/23/19 Range/Units 10:54 05:43 Sodium 135 L 135 L (137-145) mmol/L Total Protein 5.9 L (6.3-8.2) g/dL Cholesterol 207 H (<200) mg/dL LDL Cholesterol, Calc 146 H (0-99) mg/dL Comments: Pelvic ultrasound: Uterus measures 5.4 x 4.5 x 2.6 cm with endometrial stripe thickness of 0.5 cm. Endometrium did contain a fluid collection measuring 1.2 x 0.9 x 0.2 cm. Neither ovary is well visualized but no adnexal masses are seen. Assessment and Plan (1) Postmenopausal bleeding Current Visit: Yes Status: Acute Code(s): N95.0 - POSTMENOPAUSAL BLEEDING SNOMED Code(s): 26023870 Plan: I have advised the patient to follow-up with me after discharge for an endometrial biopsy in the office. If this is abnormal or nondiagnostic, then next step would be to proceed with dilation and curettage, however she will need cardiac clearance if this is necessary. Patient is agreeable and will follow up after discharge.
[2019-04-23] MEDS ORDERED: DOBUTamine DRIP for NUC MED 500 MG in DEXTROSE/WATER 1 250ML.BAG IV ONE (10:45)
--- NOTE | 2019-04-23 11:41 | P.DS ---
Providers Date of admission: 04/22/19 13:22 Attending physician: Sher Cotto Consults: 04/22/19 13:22 Consult Physician Routine Consulting Provider: Janice Walker Consult Reason/Comments: Vaginal bleeding Do you want consulting provider notified?: Yes Consult Physician Urgent Consulting Provider: Louis Cobos Consult Reason/Comments: Chest pain Do you want consulting provider notified?: Yes Primary care physician: [facility] Course: Patient was admitted for chest pain rule out acute coronary syndromes patient chest pain is atypical patient will undergo stress test if that's negative patient will be discharged today. Patient chest pain resolved and unsure the etiology of chest pain may be musculoskeletal. Patient does have history of migraine still has little bit of migraine headaches patient will resume her Topamax and other home regimen for this. Patient does have history of PE and is on anticoagulation which she will resume. Patient had vaginal bleed because of which patient was evaluated by [facility] services who will follow the patient as an outpatient. If patient has a vaginal bleed again asked her to hold off on anticoagulation call PCP or [facility] services. PHYSICAL EXAMINATION: GENERAL: The patient is alert and oriented x3, not in any acute distress. Well developed, well nourished. HEENT: Pupils are round and equally reacting to light. EOMI. No scleral icterus. No conjunctival pallor. Normocephalic, atraumatic. No pharyngeal erythema. No thyromegaly. CARDIOVASCULAR: S1 and S2 present. No murmurs, rubs, or gallops. PULMONARY: Chest is clear to auscultation, no wheezing or crackles. ABDOMEN: Soft, nontender, nondistended, normoactive bowel sounds. No palpable organomegaly. MUSCULOSKELETAL: No joint swelling or deformity. EXTREMITIES: No cyanosis, clubbing, or pedal edema. NEUROLOGICAL: Gross neurological examination did not reveal any focal deficits. SKIN: No rashes. Please refer to my dictation of H&P from yesterday for further details Patient Condition at Discharge: Fair Plan - Discharge Summary Discharge Rx Participant: No New Discharge Prescriptions: Continue DULoxetine HCL [Cymbalta] 60 mg PO HS Ibuprofen [Motrin Ib] 600 mg PO Q6H PRN PRN Reason: Pain Rivaroxaban [Xarelto] 20 mg PO HS Topiramate [Topamax] 50 mg PO BID HYDROcodone/APAP 10-325MG [[place] 10-325] 10 - 325 mg PO Q8HR PRN PRN Reason: Pain Diltiazem HCl [Cardizem] 120 mg PO HS Discharge Medication List DULoxetine HCL [Cymbalta] 60 mg PO HS 04/02/18 [History] Diltiazem HCl [Cardizem] 120 mg PO HS 04/22/19 [History] HYDROcodone/APAP 10-325MG [[place] 10-325] 10 - 325 mg PO Q8HR PRN 04/22/19 [History] Ibuprofen [Motrin Ib] 600 mg PO Q6H PRN 04/22/19 [History] Rivaroxaban [Xarelto] 20 mg PO HS 04/22/19 [History] Topiramate [Topamax] 50 mg PO BID 04/22/19 [History] Follow up Appointment(s)/Referral(s): Pinky Becker MD [Primary Care Provider] - 3 Days Discharge Disposition: HOME SELF-CARE
[2019-04-23 12:12] VITALS: BP 137/68; PULSE 90; RESP 18
[2019-04-23] MEDS: SODIUM CHLORIDE 0.9% 1,000 ML IV SCH (12:17)
--- NOTE | 2019-04-23 12:26 | P.STRESS ---
- Stress Test Note Stress Test Results/Findings: Exam Performed: dobutamine stress echo Exam Date: 04/23/19 Reason for Exam: CHEST PAIN Height: 5 ft 6 in Weight: 66.2 kg Protocol: DSE Stage: 3 Duration of Exercise: 6:40 Resting Heart Rate: 84 Resting Blood Pressure: 138/74 Maximum Achieved Heart Rate: 140 Maximum Achieved Blood Pressure: 167/56 85% PMHR: 138 100% PMHR: 162 METS: NA Technologist Comment: Stress Test Results/Findings: This is a 58-year-old female with history of smoking was admitted to the hospital with complaints of chest pain. Stress data: Baseline EKG showed sinus rhythm with normal IA interval and QRS duration. Blood pressure at rest is 138/74 with pulse rate of 84. Patient walked on the [place] protocol for 6 minutes and 40 seconds, reaching a maximal heart rate of 140. The blood pressure of 167/56. EKGs taken during and after the exercise did not reveal any significant changes from the baseline. Echo data: Baseline echo images showed normal wall motion and thickening. Exercise echo images with the dobutamine showed augmentation of wall motion and thickening at both low-dose, high-dose dobutamine. Patient did not expense any chest pain. No arrhythmias were detected. Final impression: #1. Negative dobutamine stress test #2. Negative dobutamine stress echo.
[2019-04-23] MEDS ORDERED: TOPIRAMATE 25 MG TAB PO SCH (21:00)
[2019-04-23] MEDS ORDERED: RIVAROXABAN 20 MG TAB PO SCH (21:00)
[2019-04-23] MEDS ORDERED: DILTIAZEM HCL 120 MG PO SCH (21:00)
[2019-04-24] MEDS ORDERED: DILTIAZEM CD 120 MG CAP.ER.24H PO SCH (09:00)
--- NOTE | 2019-04-26 09:25 | ECHOF ---
Referral Reason:chest pain MEASUREMENTS -------- HEIGHT: 167.6 cm WEIGHT: 65.8 kg BP: 113/54 RVIDd: 2.5 cm (< 3.3) IVSd: 1.1 cm (0.6 - 1.1) LVIDd: 4.6 cm (3.9 - 5.3) LVPWd: 1.1 cm (0.6 - 1.1) IVSs: 1.4 cm LVIDs: 3.0 cm LVPWs: 1.5 cm LA Diam: 3.2 cm (2.7 - 3.8) LAESV Index (A-L): 24.58 ml/m Ao Diam: 3.4 cm (2.0 - 3.7) AV Cusp: 2.2 cm (1.5 - 2.6) MV EXCURSION: 14.273 mm (> 18.000) MV EF SLOPE: 80 mm/s (70 - 150) EPSS: 0.4 cm MV E Inderjit: 0.98 m/s MV DecT: 215 ms MV A Inderjit: 0.73 m/s MV E/A Ratio: 1.33 AR PHT: 781 ms RAP: 5.00 mmHg RVSP: 25.51 mmHg FINDINGS -------- Sinus rhythm. This was a technically good study. The left ventricular size is normal. There is borderline concentric left ventricular hypertrophy. Overall left ventricular systolic function is normal with, an EF between 60 - 65 %. The right ventricle is normal in size. Normal LA size by volume 22+/-6 ml/m2. The right atrium is normal in size. Interatrial and interventricular septum intact. There is mild aortic valve sclerosis. There is mild aortic regurgitation. The mitral valve leaflets are mildly thickened. Mild mitral annular calcification present. Mild m itral regurgitation is present. Mild tricuspid regurgitation present. Right ventricular systolic pressure is normal at < 35 mmHg. Trace/mild (physiologic) pulmonic regurgitation. The aortic root size is normal. Normal inferior vena cava with normal inspiratory collapse consistent with estimated right atrial pre ssure of 5 mmHg. There is no pericardial effusion. CONCLUSIONS -------- 1. Sinus rhythm. 2. This was a technically good study. 3. The left ventricular size is normal. 4. There is borderline concentric left ventricular hypertrophy. 5. Overall left ventricular systolic function is normal with, an EF between 60 - 65 %. 6. The right ventricle is normal in size. 7. Normal LA size by volume 22+/-6 ml/m2. 8. The right atrium is normal in size. 9. Interatrial and interventricular septum intact. 10. There is mild aortic valve sclerosis. 11. There is mild aortic regurgitation. 12. The mitral valve leaflets are mildly thickened. 13. Mild mitral annular calcification present. 14. Mild mitral regurgitation is present. 15. Mild tricuspid regurgitation present. 16. Right ventricular systolic pressure is normal at < 35 mmHg. 17. Trace/mild (physiologic) pulmonic regurgitation. 18. The aortic root size is normal. 19. Normal inferior vena cava with normal inspiratory collapse consistent with estimated right atrial pressure of 5 mmHg. 20. There is no pericardial effusion. [employer]: Kaylin Palacio RDCS
--- NOTE | 2019-04-26 13:40 | ECHOS ---
Stress Test Results/Findings: Exam Performed: dobutamine stress echo Exam Date: 04/23/19 Reason for Exam: CHEST PAIN Height: 5 ft 6 in Weight: 66.2 kg Protocol: DSE Stage: 3 Duration of Exercise: 6:40 Resting Heart Rate: 84 Resting Blood Pressure: 138/74 Maximum Achieved Heart Rate: 140 Maximum Achieved Blood Pressure: 167/56 85% PMHR: 138 100% PMHR: 162 METS: NA Technologist Comment: Stress Test Results/Findings: This is a 58-year-old female with history of smoking was admitted to the hospital with complaints of chest pain. Stress data: Baseline EKG showed sinus rhythm with normal IN interval and QRS duration. Blood pressure at rest is 138/74 with pulse rate of 84. Patient walked on the Warren protocol for 6 minutes and 40 seconds, reaching a maximal heart rate of 140. The blood pressure of 167/56. EKGs taken during and after the exercise did not reveal any significant changes from the baseline. Echo data: Baseline echo images showed normal wall motion and thickening. Exercise echo images with the dobutamine showed augmentation of wall motion and thickening at both low-dose, high-dose dobutamine. Patient did not expense any chest pain. No arrhythmias were detected. Final impression: #1. Negative dobutamine stress test #2. Negative dobutamine stress echo. [facility]
== END 2019-04-23 14:56 | disposition home or self-care (01) ==
LOC: EC 10:34 → 1SOBS 13:22 → 3SCARD 16:15
PROVIDERS: ADMIT Internal Medicine; ATTEND Internal Medicine
DX: R07.89 Other chest pain (principal); N95.0 Postmenopausal bleeding; G43.909 Migraine, unspecified, not intractable, without status migrainosus; N89.8 Other specified noninflammatory disorders of vagina; R61 Generalized hyperhidrosis; R11.0 Nausea; R00.0 Tachycardia, unspecified; R00.2 Palpitations; F20.9 Schizophrenia, unspecified; K21.9 Gastro-esophageal reflux disease without esophagitis; J44.9 Chronic obstructive pulmonary disease, unspecified; E78.5 Hyperlipidemia, unspecified; M81.0 Age-related osteoporosis without current pathological fracture; K58.9 Irritable bowel syndrome, unspecified; G89.29 Other chronic pain; M25.561 Pain in right knee; M25.562 Pain in left knee; M54.9 Dorsalgia, unspecified; I95.9 Hypotension, unspecified; F43.10 Post-traumatic stress disorder, unspecified; F31.9 Bipolar disorder, unspecified; F41.9 Anxiety disorder, unspecified; F17.200 Nicotine dependence, unspecified, uncomplicated; F12.90 Cannabis use, unspecified, uncomplicated; F40.240 Claustrophobia; Z79.01 Long term (current) use of anticoagulants; Z79.1 Long term (current) use of non-steroidal anti-inflammatories (NSAID); Z79.899 Other long term (current) drug therapy; Z88.5 Allergy status to narcotic agent; Z88.8 Allergy status to other drugs, medicaments and biological substances; Z91.048 Other nonmedicinal substance allergy status; Z91.040 Latex allergy status; Z87.01 Personal history of pneumonia (recurrent); Z86.711 Personal history of pulmonary embolism; Z86.718 Personal history of other venous thrombosis and embolism; Z90.49 Acquired absence of other specified parts of digestive tract; Z86.010 Personal history of colon polyps; Z86.79 Personal history of other diseases of the circulatory system; Z98.41 Cataract extraction status, right eye; Z98.42 Cataract extraction status, left eye; Z96.1 Presence of intraocular lens; Z86.19 Personal history of other infectious and parasitic diseases; Z82.3 Family history of stroke; Z82.49 Family history of ischemic heart disease and other diseases of the circulatory system; Z80.1 Family history of malignant neoplasm of trachea, bronchus and lung; Z82.5 Family history of asthma and other chronic lower respiratory diseases; Z81.1 Family history of alcohol abuse and dependence
CPT/HCPCS: 96374; 99285; 36415; 93005; 93306; 93351; 83880; 80061; 80053; 80048; 83690; 83735; 84484; 85025; 85610; 85730; 71046; 76830; 70450; G0378 ×2; J1250; J2405

== ENCOUNTER 2019-07-06 13:02 | Emergency (ER) | payer MEDICARE, OTHER ==
[2019-07-06 13:41] VITALS: BP 122/64; PULSE 64; RESP 18; TEMP 97.4
--- NOTE | 2019-07-06 14:10 | XR ---
EXAMINATION TYPE: XR foot complete LT DATE OF EXAM: 07/06/2019 CLINICAL HISTORY: Left foot and ankle swelling after injury. TECHNIQUE: Frontal, lateral and oblique images of the left ankle and foot are obtained. COMPARISON: 03/16/2017. FINDINGS: There is no acute fracture/dislocation evident in the left ankle. The ankle mortise appea rs within normal limits. The overlying soft tissue appears unremarkable. There is no acute fracture or dislocation evident in the left foot. The joint spaces in the left foot are preserved. Soft tissu e swelling is seen focally over the lateral malleolus, which is mild. Mild degenerative changes are seen of the dorsal talus with small osteophyte visualized. IMPRESSION: Mild soft tissue swelling over the lateral malleolus without acute fracture or dislocatio n in the left ankle or foot.
--- NOTE | 2019-07-06 15:49 | ED ---
General Adult HPI - General Stated complaint: lt akle injury Time Seen by Provider: 07/06/19 13:38 Source: patient, RN notes reviewed Mode of arrival: ambulatory Limitations: no limitations - History of Present Illness Initial comments: 59-year-old female presents to the emergency department for left ankle injury. Patient states that she was walking yesterday when she accidentally stepped in a hole and twisted her left ankle. States that since that time and has been somewhat swollen on the lateral aspect. States she has broken this in the past. States she is able to walk on it without significant pain and walked 2 blocks to get to the ER. Patient has not taken any pain medication.Patient has no other complaints at this time including shortness of breath, chest pain, abdominal pain, nausea or vomiting, headache, or visual changes. - Related Data Home Medications Medication Instructions Recorded Confirmed DULoxetine HCL [Cymbalta] 60 mg PO HS 04/02/18 04/22/19 HYDROcodone/APAP 10-325MG [[place] 10 - 325 mg PO Q8HR PRN 04/22/19 04/22/19 10-325] Ibuprofen [Motrin Ib] 600 mg PO Q6H PRN 04/22/19 04/22/19 Rivaroxaban [Xarelto] 20 mg PO HS 04/22/19 04/22/19 Topiramate [Topamax] 50 mg PO BID 04/22/19 04/22/19 Previous Rx's Medication Instructions Recorded Diltiazem HCl [Cardizem] 120 mg PO HS #30 tablet 04/23/19 Rivaroxaban [Xarelto] 20 mg PO HS #30 tab 04/23/19 Allergies Allergy/AdvReac Type Severity Reaction Status Date / Time hydrogen peroxide Allergy rash and Verified 07/06/19 13:40 skin burn Latex, Natural Rubber Allergy Swelling Verified 07/06/19 13:40 metronidazole Allergy Unknown Verified 07/06/19 13:40 fentanyl AdvReac decreased Verified 07/06/19 13:40 bp isosorbide AdvReac Rapid Verified 07/06/19 13:40 Heart Rate Review of Systems ROS Statement: Those systems with pertinent positive or pertinent negative responses have been documented in the HPI. ROS Other: All systems not noted in ROS Statement are negative. Past Medical History Past Medical History: Chest Pain / Angina, COPD, Deep Vein Thrombosis (DVT), Eye Disorder, GERD/Reflux, Hyperlipidemia, Pneumonia, Pulmonary Embolus (PE), Syncope Additional Past Medical History / Comment(s): Chronic back and bilateral knee pain, DDD, cervical/back "nerve damage", "low BP", DVT right thigh, bilateral PEs in 2010 and 2014, migraines, osteoporosis, IBS, vertigo at times, R wrist 2 cysts, pt states since cataract surgery her vision has declined. History of Any Multi-Drug Resistant Organisms: None Reported Past Surgical History: Appendectomy, Cholecystectomy, Heart Catheterization Additional Past Surgical History / Comment(s): EGD/COLONOSCOPY/POLYPECTOMY- BENIGN, cardiac cath 06/10/16-normal, back/bilateral knee injections. epidural steroid inj -back, bilateral cataract removals/lens implants. Past Anesthesia/Blood Transfusion Reactions: No Reported Reaction Additional Past Anesthesia/Blood Transfusion Reaction / Comment(s): Pt has clausterphobia. Past Psychological History: Bipolar, Depression, Schizophrenia Smoking Status: Current every day smoker Past Alcohol Use History: None Reported Past Drug Use History: Marijuana - Past Family History Mother Family Medical History: Cancer, COPD, Hypertension Additional Family Medical History / Comment(s): Mother of LUNG CANCER at the age of 74yrs. Father Family Medical History: CVA/TIA, Hypertension Additional Family Medical History / Comment(s): Father had 2 CVAs and from the second one at the age of 52yrs. He was an alcoholic. General Exam Limitations: no limitations General appearance: alert, in no apparent distress Head exam: Present: atraumatic, normocephalic, normal inspection Eye exam: Present: normal appearance, PERRL, EOMI. Absent: scleral icterus, conjunctival injection, periorbital swelling ENT exam: Present: normal exam, mucous membranes moist Neck exam: Present: normal inspection. Absent: tenderness, meningismus, lymphadenopathy Respiratory exam: Present: normal lung sounds bilaterally. Absent: respiratory distress, wheezes, rales, rhonchi, stridor Cardiovascular Exam: Present: regular rate, normal rhythm, normal heart sounds. Absent: systolic murmur, diastolic murmur, rubs, gallop, clicks Extremities exam: Present: full ROM (Full range of motion of the left ankle), tenderness (Minimal tenderness to the lateral malleolus.), normal capillary refill (Capillary refill less than 2 seconds, dorsal pedis pulse 2+ in the left lower extremity.), joint swelling (Minimal edema noted of the lateral malleolus. ). Absent: pedal edema, calf tenderness Course Vital Signs 07/06/19 13:38 Temperature 97.4 F L Pulse Rate 64 Respiratory 18 Rate Blood Pressure 122/64 O2 Sat by Pulse 96 Oximetry Medical Decision Making - Medical Decision Making X-ray shows mild soft tissue swelling over the lateral malleolus without acute fracture or dislocation. X-ray results as well as history and physical exam are consistent with sprain of the left ankle. Patient was placed in an Aircast. She'll follow up with orthopedics. She will return here if she has any worsening symptoms. Discussed rice therapy and Motrin and Tylenol for pain. Disposition Clinical Impression: Left ankle sprain Disposition: HOME SELF-CARE Condition: Good Instructions (If sedation given, give patient instructions): Ankle Sprain (ED) Additional Instructions: Please take Motrin and Tylenol for pain. Please rest ice and elevate the left foot. Use air cast as directed. Return to the emergency department if you have any worsening symptoms. Otherwise follow-up with orthopedics in one to 2 days. Is patient prescribed a controlled substance at d/c from ED?: No Referrals: Pinky Becker MD [Primary Care Provider] - 1-2 days Candido Roy DO [Doctor of Osteopathic Medicine] - 1-2 days Time of Disposition: 15:49
== END 2019-07-06 16:00 | disposition home or self-care (01) ==
LOC: EC 13:02
DX: S93.402A Sprain of unspecified ligament of left ankle, initial encounter (principal); F32.9 Major depressive disorder, single episode, unspecified; F17.200 Nicotine dependence, unspecified, uncomplicated; Z88.1 Allergy status to other antibiotic agents; Z88.5 Allergy status to narcotic agent; Z88.8 Allergy status to other drugs, medicaments and biological substances; Z91.040 Latex allergy status; Z79.01 Long term (current) use of anticoagulants; Z79.899 Other long term (current) drug therapy; Z86.69 Personal history of other diseases of the nervous system and sense organs; Z86.711 Personal history of pulmonary embolism; Z86.718 Personal history of other venous thrombosis and embolism; W18.42XA Slipping, tripping and stumbling without falling due to stepping into hole or opening, initial encounter; X50.1XXA Overexertion from prolonged static or awkward postures, initial encounter; Y93.01 Activity, walking, marching and hiking; Y92.89 Other specified places as the place of occurrence of the external cause
CPT/HCPCS: 73610; 73630; 99283; L4350

== ENCOUNTER 2019-11-23 09:18 | Observation (INO) | payer MEDICARE, OTHER ==
[2019-11-23] MEDS ORDERED: ONDANSETRON 4 MG/2 ML VIAL IVP STA (09:52)
[2019-11-23] MEDS ORDERED: SODIUM CHLORIDE 0.9% 1,000 ML IV STA (09:52)
[2019-11-23] MEDS ORDERED: MORPHINE SULFATE 4 MG/ML SYRINGE IV STA (09:52)
[2019-11-23] MEDS ORDERED: FAMOTIDINE 20 MG/2 ML VIAL IV STA (09:53)
--- NOTE | 2019-11-23 09:57 | ED ---
General Adult HPI - General Chief complaint: Back Pain/Injury Stated complaint: Back pain Time Seen by Provider: 11/23/19 09:35 Source: patient, RN notes reviewed Mode of arrival: ambulatory Limitations: no limitations - History of Present Illness Initial comments: Patient is a pleasant 59-year-old female presenting to the emergency department with several complaints. Patient states she did have a headache start 2 or 3 days ago. Patient does have chronic similar headaches and has seen her doctor several times for this. Headache is starting to improve and is more mild at this time. Patient did start with some nausea and has vomited several times. Patient still has some nausea. Patient also complains of an ache of her upper back. Patient states her ache is somewhat worse today and now more moderate. Patient denies ever having any chest discomfort. Patient states she told the nurse due to discomfort was in the upper back and not the chest, patient denies ever having chest discomfort. - Related Data Home Medications Medication Instructions Recorded Confirmed DULoxetine HCL [Cymbalta] 60 mg PO HS 04/02/18 11/23/19 HYDROcodone/APAP 10-325MG [[place] 1 tab PO TID PRN 04/22/19 11/23/19 10-325] Aspirin EC [Ecotrin Low Dose] 81 mg PO DAILY 11/23/19 11/23/19 Allergies Allergy/AdvReac Type Severity Reaction Status Date / Time hydrogen peroxide Allergy rash and Verified 11/23/19 11:09 skin burn Latex, Natural Rubber Allergy Swelling Verified 11/23/19 11:09 metronidazole Allergy Unknown Verified 11/23/19 11:09 fentanyl AdvReac decreased Verified 11/23/19 11:09 bp isosorbide AdvReac Rapid Verified 11/23/19 11:09 Heart Rate Review of Systems ROS Statement: Those systems with pertinent positive or pertinent negative responses have been documented in the HPI. ROS Other: All systems not noted in ROS Statement are negative. Constitutional: Denies: fever Eyes: Denies: eye pain ENT: Denies: ear pain Respiratory: Denies: cough, dyspnea Cardiovascular: Denies: chest pain, palpitations Endocrine: Denies: fatigue Gastrointestinal: Reports: nausea, vomiting. Denies: abdominal pain Genitourinary: Denies: dysuria Musculoskeletal: Reports: as per HPI, back pain (Thoracic) Skin: Denies: rash Neurological: Denies: weakness Past Medical History Past Medical History: Chest Pain / Angina, COPD, Deep Vein Thrombosis (DVT), Eye Disorder, GERD/Reflux, Hyperlipidemia, Pneumonia, Pulmonary Embolus (PE), Syncope Additional Past Medical History / Comment(s): Chronic back and bilateral knee pain, DDD, cervical/back "nerve damage", "low BP", DVT right thigh, bilateral PEs in 2010 and 2015, migraines, osteoporosis, IBS, vertigo at times, R wrist 2 cysts, pt states since cataract surgery her vision has declined. History of Any Multi-Drug Resistant Organisms: None Reported Past Surgical History: Appendectomy, Cholecystectomy, Heart Catheterization Additional Past Surgical History / Comment(s): EGD/COLONOSCOPY/POLYPECTOMY- BENIGN, cardiac cath 06/10/16-normal, back/bilateral knee injections. epidural steroid inj -back, bilateral cataract removals/lens implants. Past Anesthesia/Blood Transfusion Reactions: No Reported Reaction Additional Past Anesthesia/Blood Transfusion Reaction / Comment(s): Pt has clausterphobia. Past Psychological History: Bipolar, Depression, Schizophrenia Smoking Status: Current every day smoker Past Alcohol Use History: None Reported Past Drug Use History: Marijuana - Past Family History Mother Family Medical History: Cancer, COPD, Hypertension Additional Family Medical History / Comment(s): Mother of LUNG CANCER at the age of 74yrs. Father Family Medical History: CVA/TIA, Hypertension Additional Family Medical History / Comment(s): Father had 2 CVAs and from the second one at the age of 52yrs. He was an alcoholic. General Exam Limitations: no limitations General appearance: alert, in no apparent distress Head exam: Present: normocephalic Eye exam: Present: normal appearance, PERRL ENT exam: Present: normal oropharynx Neck exam: Present: normal inspection. Absent: tenderness Respiratory exam: Present: normal lung sounds bilaterally. Absent: chest wall tenderness Cardiovascular Exam: Present: regular rate, normal rhythm Expanded Peripheral pulses: 2+: Radial (R), Radial (L), Posterior Tibialis (R), Posterior Tibialis (L), Dorsalis Pedis (R), Dorsalis Pedis (L) GI/Abdominal exam: Present: soft. Absent: distended, tenderness Extremities exam: Present: normal inspection Back exam: Present: tenderness (Mild tenderness mid thoracic diffusely) Neurological exam: Present: alert Psychiatric exam: Present: normal affect, normal mood Skin exam: Present: normal color Course Vital Signs 11/23/19 11/23/19 09:25 10:22 Temperature 98.0 F Pulse Rate 105 H 90 Respiratory 19 18 Rate Blood Pressure 128/73 120/78 O2 Sat by Pulse 99 97 Oximetry EKG Findings - EKG Comments: EKG Findings:: Normal sinus rhythm 88. MT 1:30. QRS 84. QT 352. QTC 425. Normal axis. Right atrial enlargement. No acute ST change. Medical Decision Making - Medical Decision Making Patient reevaluated and does feel somewhat better. Discomfort is now mild. Patient adds that she has had some episodes of sweating however not necessarily related with her back. Patient is updated on results. Patient is felt to be low suspicion for acute cardiac cause. Cardiac causes neck the rule out however. Case was discussed with Dr. Jj, who will admit For Dr. Saeid Choi. - Lab Data Result diagrams: 11/23/19 09:45 11/23/19 09:45 Lab Results 11/23/19 11/23/19 11/23/19 Range/Units 09:45 09:45 09:45 WBC 6.0 (3.8-10.6) k/uL RBC 4.67 (3.80-5.40) m/uL Hgb 14.0 (11.4-16.0) gm/dL Hct 41.9 (34.0-46.0) % MCV 89.7 (80.0-100.0) fL MCH 29.9 (25.0-35.0) pg MCHC 33.3 (31.0-37.0) g/dL RDW 13.4 (11.5-15.5) % Plt Count 179 (150-450) k/uL Neutrophils % 56 % Lymphocytes % 33 % Monocytes % 6 % Eosinophils % 1 % Basophils % 2 % Neutrophils # 3.4 (1.3-7.7) k/uL Lymphocytes # 2.0 (1.0-4.8) k/uL Monocytes # 0.4 (0-1.0) k/uL Eosinophils # 0.1 (0-0.7) k/uL Basophils # 0.1 (0-0.2) k/uL PT 9.6 (9.0-12.0) sec INR 0.9 (<1.2) APTT 22.5 (22.0-30.0) sec D-Dimer 0.52 (<0.60) mg/L FEU Sodium 131 L (137-145) mmol/L Potassium 3.9 (3.5-5.1) mmol/L Chloride 100 (98-107) mmol/L Carbon Dioxide 22 (22-30) mmol/L Anion Gap 9 mmol/L BUN 11 (7-17) mg/dL Creatinine 0.66 (0.52-1.04) mg/dL Est GFR (CKD-EPI)AfAm >90 (>60 ml/min/1.73 sqM) Est GFR (CKD-EPI)NonAf >90 (>60 ml/min/1.73 sqM) Glucose 98 (74-99) mg/dL Calcium 9.3 (8.4-10.2) mg/dL Magnesium 2.0 (1.6-2.3) mg/dL Total Bilirubin 0.6 (0.2-1.3) mg/dL AST 20 (14-36) U/L ALT 12 (4-34) U/L Alkaline Phosphatase 83 (38-126) U/L Troponin I (0.000-0.034) ng/mL NT-Pro-B Natriuret Pep pg/mL Total Protein 6.8 (6.3-8.2) g/dL Albumin 4.0 (3.5-5.0) g/dL Amylase 52 (30-110) U/L Lipase 67 (23-300) U/L 11/23/19 11/23/19 Range/Units 09:45 09:45 WBC (3.8-10.6) k/uL RBC (3.80-5.40) m/uL Hgb (11.4-16.0) gm/dL Hct (34.0-46.0) % MCV (80.0-100.0) fL MCH (25.0-35.0) pg MCHC (31.0-37.0) g/dL RDW (11.5-15.5) % Plt Count (150-450) k/uL Neutrophils % % Lymphocytes % % Monocytes % % Eosinophils % % Basophils % % Neutrophils # (1.3-7.7) k/uL Lymphocytes # (1.0-4.8) k/uL Monocytes # (0-1.0) k/uL Eosinophils # (0-0.7) k/uL Basophils # (0-0.2) k/uL PT (9.0-12.0) sec INR (<1.2) APTT (22.0-30.0) sec D-Dimer (<0.60) mg/L FEU Sodium (137-145) mmol/L Potassium (3.5-5.1) mmol/L Chloride (98-107) mmol/L Carbon Dioxide (22-30) mmol/L Anion Gap mmol/L BUN (7-17) mg/dL Creatinine (0.52-1.04) mg/dL Est GFR (CKD-EPI)AfAm (>60 ml/min/1.73 sqM) Est GFR (CKD-EPI)NonAf (>60 ml/min/1.73 sqM) Glucose (74-99) mg/dL Calcium (8.4-10.2) mg/dL Magnesium (1.6-2.3) mg/dL Total Bilirubin (0.2-1.3) mg/dL AST (14-36) U/L ALT (4-34) U/L Alkaline Phosphatase (38-126) U/L Troponin I <0.012 (0.000-0.034) ng/mL NT-Pro-B Natriuret Pep 123 pg/mL Total Protein (6.3-8.2) g/dL Albumin (3.5-5.0) g/dL Amylase (30-110) U/L Lipase (23-300) U/L - Radiology Data Radiology results: image reviewed (Chest x-ray shows no acute process) Disposition Clinical Impression: Thoracic back pain Disposition: ADMITTED IP TO THIS [facility] Is patient prescribed a controlled substance at d/c from ED?: No Referrals: Pinky Becker MD [Primary Care Provider] - 1-2 days Decision Time: 11:36
[2019-11-23 10:19] LABS: ALT 12 U/L (4-34); AST 20 U/L (14-36); African American GFR (CKD) >90 (>60 ml/min/1.73 sqM); Alkaline Phosphatase 83 U/L (38-126); Amylase 52 U/L (30-110); Anion Gap 9 mmol/L; Blood Urea Nitrogen 11 mg/dL (7-17); Calcium 9.3 mg/dL (8.4-10.2); Carbon Dioxide 22 mmol/L (22-30); Chloride 100 mmol/L (98-107); Glucose 98 mg/dL (74-99); Non-African American GFR(CKD) >90 (>60 ml/min/1.73 sqM); Potassium 3.9 mmol/L (3.5-5.1); Sodium 131 mmol/L (137-145); Total Bilirubin 0.6 mg/dL (0.2-1.3); Total Protein 6.8 g/dL (6.3-8.2)
--- NOTE | 2019-11-23 10:21 | XR ---
EXAMINATION TYPE: XR chest 2V DATE OF EXAM: 11/23/2019 COMPARISON: 04/22/2019 HISTORY: Shortness of breath TECHNIQUE: Frontal and lateral views of the chest are obtained. FINDINGS: Scattered senescent parenchymal changes noted. Hyperinflation compatible with COPD. No evidence for infiltrate. No evidence for atelectasis. Heart size is stable. Mediastinal structures are stable and grossly unremarkable. No evidence for hilar prominence. Degenerative changes dorsal spine. IMPRESSION: 1. No evidence for acute pulmonary disease.
[2019-11-23 10:39] LABS: D-Dimer 0.52 mg/L FEU (<0.60); INR 0.9 (<1.2); Partial Thromboplastin Time 22.5 sec (22.0-30.0); Prothrombin Time 9.6 sec (9.0-12.0)
[2019-11-23 10:45] LABS: Basophils # (A) 0.1 k/uL (0-0.2); Basophils % (A) 2 %; Eosinophils # (A) 0.1 k/uL (0-0.7); Eosinophils % (A) 1 %; HCT 41.9 % (34.0-46.0); Lymphocytes % (A) 33 %; MCH 29.9 pg (25.0-35.0); MCHC 33.3 g/dL (31.0-37.0); MCV 89.7 fL (80.0-100.0); Mean Platelet Volume 8.4; Monocytes # (A) 0.4 k/uL (0-1.0); Monocytes % (A) 6 %; Neutrophils # (A) 3.4 k/uL (1.3-7.7); Neutrophils % (A) 56 %; Platelet Count 179 k/uL (150-450); RBC 4.67 m/uL (3.80-5.40); RDW 13.4 % (11.5-15.5)
[2019-11-23] MEDS ORDERED: ASPIRIN 81 MG PO STA (11:36)
[2019-11-23] MEDS ORDERED: ALPRAZolam 0.25 MG TAB PO PRN (14:24)
[2019-11-23] MEDS ORDERED: TEMAZEPAM 15 MG CAP PO PRN (14:24)
[2019-11-23] MEDS: PANTOPRAZOLE 40 MG TABLET PO SCH (14:32)
[2019-11-23] MEDS: HYDROmorphone 0.5 MG/0.5 ML SYRINGE IVP PRN ×2 (14:34→23:39)
--- NOTE | 2019-11-23 14:35 | P.CRDCN ---
History of Present Illness History of present illness: HISTORY OF PRESENTING ILLNESS This is a pleasant 59-year-old female past medical history significant for depression, chronic nicotine and marijuana dependence, COPD and chronic back pain. Denies prior history of coronary artery disease and does not follow in the office with a relocation associate. We have been asked to see in consultation for cardiac evaluation. She presented to the hospital with symptoms of headache has been ongoing and persistent for the previous 3 days associated with nausea, neck and upper back discomfort. She denies symptoms of chest pain, shortness of myra th, dizziness or palpitations. She underwent a dobutamine stress echocardiogram in April 2019 that was negative for stress-induced ischemia. At that time she also underwent an echocardiogram revealing preserved LV systolic function with ejection fraction 60-65%. She denies ever having had any chest discomfort on this admission. Her back pain she states is chronic and ongoing. However given the combination of the headache unrelieved at home she came in for further evaluation. DIAGNOSTICS EKG reveals sinus mechanism with right atrial enlargement. Chest xray negative for an acute cardiopulmonary process. Laboratory reviewed, CBC unremarkable, d-dimer 0.52, sodium 131, potassium 3.9, creatinine 0.66, troponin negative, NT proBNP 123. Current cardiac medications include aspirin 81 mg daily. REVIEW OF SYSTEMS At the time of my exam: CONSTITUTIONAL: Denies fever or chills. CARDIOVASCULAR: Denies chest pain, shortness of breath, orthopnea, PND or palpitations. RESPIRATORY: Denies cough. GASTROINTESTINAL: Denies abdominal pain, diarrhea, constipation, nausea or vomiting. MUSCULOSKELETAL: Complains of reproducible upper back discomfort with movement of her torso or deep palpation. NEUROLOGIC: Denies numbness, tingling or weakness. ENDOCRINE: Denies fatigue, weight change, polydipsia or polyurina. GENITOURINARY: Denies burning, hematuria or urgency with micturation. HEMATOLOGIC: Denies history of anemia or bleeding. PHYSICAL EXAMINATION Blood pressure 127/71 heart rate 82 afebrile and maintaining oxygen saturation on room air. CONSTITUTIONAL: No apparent distress. HEENT: Head is normocephalic. Pupils are equal, round. Sclerae anicteric. Mucous membranes of the mouth are moist. No JVD. No carotid bruit. CHEST EXAMINATION: Lungs are clear to auscultation. No chest wall tenderness is noted on palpation or with deep breathing. HEART EXAMINATION: Regular rate and rhythm. S1, S2 heard. No murmurs, gallops or rub. ABDOMEN: Soft, nontender. Positive bowel sounds. EXTREMITIES: 2+ peripheral pulses, no lower extremity edema and no calf tenderness. NEUROLOGIC EXAMINATION: Patient is awake, alert and oriented x3. ASSESSMENT Back pain, atypical for angina. Headache with a history of migraines Chronic nicotine dependence Daily marijuana use COPD PLAN Repeat one troponin now. If normal she is stable to be discharged from a cardiac perspective. No further cardiac testing required. Recent normal stress test in April with no symptoms of angina. Back pain is chronic and reproducible. Recommend smoking cessation. Thank you kindly for this consultation. Nurse Practitioner note has been reviewed, I agree with a documented findings and plan of care. Patient was seen and examined. Past Medical History Past Medical History: Chest Pain / Angina, COPD, Deep Vein Thrombosis (DVT), Eye Disorder, GERD/Reflux, Hyperlipidemia, Pneumonia, Pulmonary Embolus (PE), Syncope Additional Past Medical History / Comment(s): Chronic back and bilateral knee pain, DDD, cervical/back "nerve damage", "low BP", DVT right thigh, bilateral PEs in 2010 and 2014, migraines, osteoporosis, IBS, vertigo at times, R wrist 2 cysts, pt states since cataract surgery her vision has declined. History of Any Multi-Drug Resistant Organisms: None Reported Past Surgical History: Appendectomy, Cholecystectomy, Heart Catheterization Additional Past Surgical History / Comment(s): EGD/COLONOSCOPY/POLYPECTOMY- BENIGN, cardiac cath 06/10/16-normal, back/bilateral knee injections. epidural steroid inj -back, bilateral cataract removals/lens implants. Past Anesthesia/Blood Transfusion Reactions: No Reported Reaction Additional Past Anesthesia/Blood Transfusion Reaction / Comment(s): Pt has clausterphobia. Past Psychological History: Bipolar, Depression, Schizophrenia Smoking Status: Current every day smoker Past Alcohol Use History: None Reported Past Drug Use History: Marijuana - Past Family History Mother Family Medical History: Cancer, COPD, Hypertension Additional Family Medical History / Comment(s): Mother of LUNG CANCER at the age of 74yrs. Father Family Medical History: CVA/TIA, Hypertension Additional Family Medical History / Comment(s): Father had 2 CVAs and from the second one at the age of 52yrs. He was an alcoholic. Medications and Allergies Home Medications Medication Instructions Recorded Confirmed Type DULoxetine HCL [Cymbalta] 60 mg PO HS 04/02/18 11/23/19 History HYDROcodone/APAP 10-325MG [[place] 1 tab PO TID PRN 04/22/19 11/23/19 History 10-325] Aspirin EC [Ecotrin Low Dose] 81 mg PO DAILY 11/23/19 11/23/19 History Allergies Allergy/AdvReac Type Severity Reaction Status Date / Time hydrogen peroxide Allergy rash and Verified 11/23/19 11:09 skin burn Latex, Natural Rubber Allergy Swelling Verified 11/23/19 11:09 metronidazole Allergy Unknown Verified 11/23/19 11:09 fentanyl AdvReac decreased Verified 11/23/19 11:09 bp isosorbide AdvReac Rapid Verified 11/23/19 11:09 Heart Rate Physical Exam Vitals: Vital Signs Temp Pulse Resp BP Pulse Ox 11/23/19 12:18 97.6 F 82 16 127/71 100 11/23/19 10:22 90 18 120/78 97 11/23/19 09:25 98.0 F 105 H 19 128/73 99 Intake and Output 11/22/19 11/23/19 11/23/19 22:59 06:59 14:59 Other: Weight 68.447 kg Results 11/23/19 09:45 11/23/19 09:45 Cardiac Enzymes 11/23/19 11/23/19 Range/Units 09:45 09:45 AST 20 (14-36) U/L Troponin I <0.012 (0.000-0.034) ng/mL Coagulation 11/23/19 Range/Units 09:45 PT 9.6 (9.0-12.0) sec APTT 22.5 (22.0-30.0) sec CBC 11/23/19 Range/Units 09:45 WBC 6.0 (3.8-10.6) k/uL RBC 4.67 (3.80-5.40) m/uL Hgb 14.0 (11.4-16.0) gm/dL Hct 41.9 (34.0-46.0) % Plt Count 179 (150-450) k/uL Comprehensive Metabolic Panel 11/23/19 Range/Units 09:45 Sodium 131 L (137-145) mmol/L Potassium 3.9 (3.5-5.1) mmol/L Chloride 100 (98-107) mmol/L Carbon Dioxide 22 (22-30) mmol/L BUN 11 (7-17) mg/dL Creatinine 0.66 (0.52-1.04) mg/dL Glucose 98 (74-99) mg/dL Calcium 9.3 (8.4-10.2) mg/dL AST 20 (14-36) U/L ALT 12 (4-34) U/L Alkaline Phosphatase 83 (38-126) U/L Total Protein 6.8 (6.3-8.2) g/dL Albumin 4.0 (3.5-5.0) g/dL Current Medications Generic Name Dose Route Start Last Admin Trade Name Freq PRN Reason Stop Dose Admin Acetaminophen 500 mg 11/23/19 14:24 Tylenol Tab PO Q6HR PRN Fever and/ or Pain Hydrocodone Bitart/Acetaminophen 1 each 11/23/19 14:22 [place] 10 PO TID PRN Pain Alprazolam 0.25 mg 11/23/19 14:24 Xanax PO TID PRN Anxiety Aspirin 81 mg 11/24/19 09:00 Aspirin PO DAILY RHEA Duloxetine HCl 60 mg 11/23/19 21:00 Cymbalta PO HS RHEA Heparin Sodium (Porcine) 5,000 unit 11/23/19 21:00 Heparin SQ Q12HR RHEA Hydromorphone HCl 0.5 mg 11/23/19 14:24 Dilaudid IVP Q4HR PRN Severe Pain Sodium Chloride 1,000 mls @ 100 mls/hr 11/23/19 09:52 11/23/19 10:21 Saline 0.9% IV 11/23/19 19:51 100 mls/hr .Q10H STA Administration Pantoprazole Sodium 40 mg 11/23/19 14:30 Protonix PO AC-BRKFST RHEA Sodium Chloride 10 ml 11/23/19 21:00 Saline Flush IV BID RHEA Temazepam 15 mg 11/23/19 14:24 Restoril PO HS PRN Insomnia Intake and Output 11/22/19 11/23/19 11/23/19 22:59 06:59 14:59 Other: Weight 68.447 kg Patient Weight 11/24/19 06:59 Weight 68.447 kg 11/23/19 09:45 11/23/19 09:45
[2019-11-23 15:25] LABS: Appearance,Urine Cloudy (Clear); Bilirubin,Urine Negative (Negative); Blood,Urine Negative (Negative); Color,Urine Yellow; Glucose,Urine (UA) Negative (Negative); Ketones,Urine Negative (Negative); Leukocyte Esterase,Urine Small (Negative); Mucus,Urine Many /hpf; Nitrite,Urine Negative (Negative); Protein,Urine Trace (Negative); RBC,Urine 6 /hpf (0-5); Specific Gravity,Urine 1.024 (1.001-1.035); Squamous Epithelial Cell,Urine 4 /hpf (0-4); WBC,Urine 12 /hpf (0-5)
[2019-11-23 15:37] LABS: Amphetamine Screen,Urine Not Detected (NotDetected); Barbiturate Screen,Urine Not Detected (NotDetected); Benzodiazepines Screen,Urine Not Detected (NotDetected); Cocaine Screen,Urine Not Detected (NotDetected); Methadone Screen, Urine Not Detected (NotDetected); Opiate Screen,Urine Detected (NotDetected); Oxycodone Screen, Urine Not Detected (NotDetected); Phencyclidine Screen,Urine Not Detected (NotDetected); Tricyclic Antidepressant,Urine Not Detected (NotDetected); Urn Cannabinoid Scrn Detected (NotDetected)
--- NOTE | 2019-11-23 15:48 | CT ---
EXAMINATION TYPE: CT angio chest DATE OF EXAM: 11/23/2019 COMPARISON: 04/01/2018 HISTORY: Mid back pain with shortness of breath. History of PE. CT DLP: 263.4 mGycm. Automated Exposure Control for Dose Reduction was Utilized. CONTRAST: CTA scan of the thorax is performed with IV Contrast, patient injected with 100 mL of Isovue 370, pul monary embolism protocol. MIP Images are created on CT scanner and reviewed. FINDINGS: LUNGS: Mild background emphysematous changes of the lungs. Biapical pleural parenchymal scarring is a gain noted. Lingular consolidation is seen that appears linear. There is no pleural effusion or pne umothorax seen. The tracheobronchial tree is patent. MEDIASTINUM: There is satisfactory enhancement of the pulmonary artery and its branches, there is no CT evidence for pulmonary embolism. There are no greater than 1 cm hilar or mediastinal lymph nodes. No cardiomegaly or pericardial effusion is seen. Mild coronary calcifications particularly of the circumflex coronary artery. OTHER: Mild multilevel degenerative change of the spine. IMPRESSION: 1. No evidence of pulmonary embolus. 2. Mild emphysematous changes in the lungs. 3. Mild coronary artery calcifications, marker of coronary artery disease. 4. Lingular consolidation is linear and likely relates to atelectasis or scarring.
[2019-11-23 16:57] VITALS: RESP 18
[2019-11-23] MEDS: HYDROcodone/APAP 10-325MG 1 EACH TAB PO PRN (17:43)
[2019-11-23] MEDS: ACETAMINOPHEN TAB 500 MG TAB PO PRN (18:50)
--- NOTE | 2019-11-23 19:34 | XR ---
EXAMINATION TYPE: XR thoracic spine 2V DATE OF EXAM: 11/23/2019 COMPARISON: NONE HISTORY: Back pain TECHNIQUE: 3 views FINDINGS: Thoracic vertebra have fairly normal alignment. There is minor spurring of the endplates. P osterior elements are intact. There is no compression fracture. IMPRESSION: Mild degenerative spurring. No fracture seen.
[2019-11-23] MEDS ORDERED: DULoxetine HCL 60 MG CAPSULE.DR PO SCH (21:00)
[2019-11-23] MEDS: ONDANSETRON 4 MG/2 ML VIAL IVP PRN (21:04)
[2019-11-23] MEDS: HEPARIN SODIUM,PORCINE 5,000 UNIT/ML 1 ML VIAL SQ SCH (21:04)
--- NOTE | 2019-11-23 23:21 | HP ---
HISTORY AND PHYSICAL DATE OF SERVICE: 11/23/2019 CHIEF COMPLAINT: Back pain and some chest pain. HISTORY OF PRESENT ILLNESS: This 59-year-old woman with a past medical history of multiple medical problems, including history of COPD, history of DVT, history of GERD, hypertension, pneumonia, pulmonary embolism, history of low blood pressure, history of polypectomy, history of bipolar, depression, schizophrenia, being followed by Dr. Pinky Becker and as well as Dr. Oneal in the outpatient setting, was previously admitted to [facility] with features of chest pain and migraine. Currently the patient is complaining of back pain which is felt in the mid part of the back which is rather mild to moderate, up to 7 in intensity, aggravated since last night. The patient came to [facility] and was admitted for further evaluation and treatment. Some minimal chest discomfort was also complained of. There is some nausea and vomiting, also. There is no history of any fever, rigor or chills. No history of headache, loss of consciousness, seizures. After admission a chest x-ray was done, which was reviewed personally by me, and showed no evidence of an acute pulmonary process. PAST MEDICAL HISTORY: History of COPD, DVT, history of GERD, hypertension, hyperlipidemia, history of pulmonary embolism, history of bipolar, depression and schizophrenia. HOME MEDICATIONS: 1. [place] 10 mg t.i.d. p.r.n. 2. Ecotrin 81 mg. 3. Cymbalta 60 mg at bedtime. ALLERGIES: HYDROGEN PEROXIDE, LATEX, METRONIDAZOLE, FENTANYL, ISOSORBIDE. FAMILY HISTORY: History of cancer, COPD, hypertension. SOCIAL HISTORY: History of THC, history of nicotine dependence. REVIEW OF SYSTEMS: ENT: No diminished vision. No diminished hearing. CARDIOVASCULAR SYSTEM: As mentioned earlier. RESPIRATORY SYSTEM: As mentioned earlier. GI: No nausea, vomiting. : No dysuria, retention. NERVOUS SYSTEM: No numbness or weakness. ALLERGY/IMMUNOLOGY: No asthma or hayfever. MUSCULOSKELETAL: As mentioned earlier. HEMATOLOGY/ONCOLOGY: No history of anemia. ENDOCRINE: No history of diabetes or hypothyroidism. CONSTITUTIONAL: As mentioned earlier. DERMATOLOGY: Negative. RHEUMATOLOGY: Negative. PSYCHIATRY: As mentioned earlier. PHYSICAL EXAMINATION: Patient alert and oriented x3. Pulse 105, blood pressure 128/73, respiration 19, temperature 98 degrees, pulse ox 99% on room air. HEENT: Conjunctivae normal. Oral mucosa moist. NECK: No jugular venous distention. No carotid bruit. No lymph node enlargement. CARDIOVASCULAR SYSTEM: S1, S2 muffled. RESPIRATION: Breath sounds diminished at the bases. No rhonchi. No crackles. ABDOMEN: Soft, nontender. No mass palpable. LEGS: No edema. No swelling. NERVOUS SYSTEM: Higher functions as mentioned earlier. Moves all 4 limbs. No focal motor or sensory deficit. LYMPHATICS; No lymph node palpable in neck or axillae. SKIN: No ulcer, rash or bleeding. JOINTS: No active deforming arthropathy. EXAMINATION OF THE BACK: Some tenderness present. LAB INVESTIGATIONS: CBC within normal limits. Sodium 131. ASSESSMENT: 1. Midthoracic pain as well as chest pain, for evaluation. 2. Hyponatremia, mild. 3. History of chronic obstructive pulmonary disease. 4. History of deep venous thrombosis. 5. Gastroesophageal reflux disease. 6. Hyperlipidemia. 7. History of pneumonia. 8. History of pulmonary embolism. 9. History of chronic back pain, degenerative joint disease. 10.History of low blood pressure. 11.History of bilateral pulmonary emboli. 12.History of migraines. 13.History of irritable bowel syndrome. 14.History of appendectomy. 15.History of cholecystectomy. 16.History of bipolar, depression and schizophrenia. 17.History of continued ongoing nicotine dependence. 18.History of THC. RECOMMENDATIONS AND DISCUSSION: In this 59-year-old woman who presented with multiple complex medical issues, we will monitor the patient closely, continue symptomatic treatment. Otherwise at this time I recommend a cardiology evaluation. Otherwise would also recommend baseline evaluation. Resume the home medications. Symptomatic treatment of the pain. The exact etiology is undetermined at this time. The D-dimer has been done. Would recommend a CT angiogram of the chest and continued monitoring, also. CT scan of the chest and continue to monitor. The prognosis is guarded because of multiple complex medical issues. Further recommendations to follow. A copy of this dictation will be forwarded to Dr. Pinky Becker, who is the primary physician. MMANGELLA / LYNDSEY: [id number] / MTDD
[2019-11-24] MEDS: ONDANSETRON 4 MG/2 ML VIAL IVP PRN (03:43)
[2019-11-24] MEDS: HYDROcodone/APAP 10-325MG 1 EACH TAB PO PRN ×2 (03:46→11:49)
[2019-11-24 07:06] LABS: Basophils # (A) 0.1 k/uL (0-0.2); Basophils % (A) 1 %; Eosinophils # (A) 0.1 k/uL (0-0.7); Eosinophils % (A) 2 %; HCT 36.5 % (34.0-46.0); HGB 12.5 gm/dL (11.4-16.0); Lymphocytes # (A) 1.6 k/uL (1.0-4.8); Lymphocytes % (A) 29 %; MCH 30.5 pg (25.0-35.0); MCHC 34.2 g/dL (31.0-37.0); MCV 89.2 fL (80.0-100.0); Mean Platelet Volume 8.6; Monocytes # (A) 0.3 k/uL (0-1.0); Monocytes % (A) 5 %; Neutrophils # (A) 3.2 k/uL (1.3-7.7); Neutrophils % (A) 59 %; Platelet Count 199 k/uL (150-450); RBC 4.09 m/uL (3.80-5.40); RDW 13.3 % (11.5-15.5); WBC 5.4 k/uL (3.8-10.6)
[2019-11-24 07:16] LABS: African American GFR (CKD) >90 (>60 ml/min/1.73 sqM); Anion Gap 6 mmol/L; Blood Urea Nitrogen 12 mg/dL (7-17); Calcium 8.7 mg/dL (8.4-10.2); Carbon Dioxide 24 mmol/L (22-30); Chloride 102 mmol/L (98-107); Cholesterol 196 mg/dL (<200); Glucose 81 mg/dL (74-99); HDL Cholesterol 47 mg/dL (40-60); LDL Cholesterol,Calculated 133 mg/dL (0-99); Non-African American GFR(CKD) >90 (>60 ml/min/1.73 sqM); Sodium 132 mmol/L (137-145); Triglycerides 82 mg/dL (<150)
[2019-11-24] MEDS ORDERED: ASPIRIN 81 MG PO SCH (09:00)
[2019-11-24] MEDS ORDERED: ASPIRIN 325 MG TAB PO SCH (09:00)
[2019-11-24] MEDS: ACETAMINOPHEN TAB 500 MG TAB PO PRN (09:01)
[2019-11-24] MEDS: HEPARIN SODIUM,PORCINE 5,000 UNIT/ML 1 ML VIAL SQ SCH (09:02)
[2019-11-24] MEDS: PANTOPRAZOLE 40 MG TABLET PO SCH (09:02)
--- NOTE | 2019-11-24 10:39 | PN ---
PROGRESS NOTE This lady was seen by me yesterday in the emergency room. Her pain was atypical. She actually did not have chest pain. Her pain was mostly in the back. With the heating pad, she felt better. However, she had some nausea and stayed back and also had a migraine attack. She is asymptomatic. She again insists that she does not have any chest pain. She is resting comfortably without symptoms. Vital signs are stable. No JVD. S1, S2 heard normally. Lungs are clear. Abdomen and lower extremity exam unchanged. Plan is to increase activity, discharge and follow with her PCP. Her recent cardiac testing was negative for ischemia. MMODL / IJN: [id number] /
[2019-11-24 11:38] VITALS: BP 144/77; PULSE 85; TEMP 98.8
--- NOTE | 2019-11-25 06:08 | DS ---
DISCHARGE SUMMARY DATE OF SERVICE: 11/24/2019 FINAL DIAGNOSES: 1. Midthoracic pain as well as chest pain, possibly musculoskeletal. 2. Hyponatremia mild. 3. History of chronic obstructive pulmonary disease. 4. History of deep vein thrombosis. 5. Gastroesophageal reflux disease. 6. Hyperlipidemia. 7. History of pneumonia. 8. History of pulmonary embolism. 9. History of chronic back pain, degenerative joint disease. 10.History of low blood pressure. 11.History of bilateral pulmonary emboli. 12.History of migraine. 13.History of irritable bowel syndrome. 14.History of appendectomy. 15.History of cholecystectomy. 16.History of bipolar depression, schizophrenia. 17.Continued ongoing nicotine dependence. 18.History of THC. DISCHARGE DISPOSITION: The patient will be discharged in stable condition with guarded prognosis. Discharge cleared by Cardiology. HISTORY OF PRESENT ILLNESS: This 59-year-old woman with a past medical history of multiple medical problems admitted with chest and back pain, treated symptomatically. Patient also had a CTA, pulmonary embolism ruled out. The patient recently had a cardiac workup. Cardiology saw the patient and recommended outpatient followup. On exam, vitals are stable. CARDIOVASCULAR: S1, S2 muffled. ABDOMEN: Soft. NERVOUS SYSTEM: No focal deficits. DISCHARGE ADVICE: 1. Diet is cardiac. 2. Activity limited until followup. 3. Follow up with Dr. Pinky Becker in 1 to 2 days. 4. Follow up with Cardiology as recommended. Medications are: 1. Tylenol p.r.n. 2. Cymbalta 60 mg at bedtime. 3. Ecotrin 81 mg daily. 4. [place] 10 mg t.i.d. p.r.n. Once again, the patient will be discharged in stable condition with guarded prognosis. MMODL / IJN: [id number] /
== END 2019-11-24 12:02 ==
LOC: EC 09:18 → 1SOBS 11:37
PROVIDERS: ADMIT Internal Medicine; ATTEND Internal Medicine
DX: M54.6 Pain in thoracic spine (principal); R07.9 Chest pain, unspecified; E87.1 Hypo-osmolality and hyponatremia; J44.9 Chronic obstructive pulmonary disease, unspecified; G89.29 Other chronic pain; E78.5 Hyperlipidemia, unspecified; K21.9 Gastro-esophageal reflux disease without esophagitis; F32.9 Major depressive disorder, single episode, unspecified; F17.200 Nicotine dependence, unspecified, uncomplicated; G43.909 Migraine, unspecified, not intractable, without status migrainosus; Z90.49 Acquired absence of other specified parts of digestive tract; F20.9 Schizophrenia, unspecified; R55 Syncope and collapse; M81.0 Age-related osteoporosis without current pathological fracture; K58.9 Irritable bowel syndrome, unspecified; Z86.711 Personal history of pulmonary embolism; Z86.718 Personal history of other venous thrombosis and embolism; Z87.01 Personal history of pneumonia (recurrent); Z82.5 Family history of asthma and other chronic lower respiratory diseases; Z82.49 Family history of ischemic heart disease and other diseases of the circulatory system; Z80.1 Family history of malignant neoplasm of trachea, bronchus and lung; Z88.5 Allergy status to narcotic agent; Z91.040 Latex allergy status; Z88.8 Allergy status to other drugs, medicaments and biological substances; Z79.82 Long term (current) use of aspirin; Z79.891 Long term (current) use of opiate analgesic; Z79.899 Other long term (current) drug therapy; F12.21 Cannabis dependence, in remission
CPT/HCPCS: 96376 ×2; 96361 ×3; 96372 ×2; 96374; 96375; 99285; 36415; 93005; 85379; 83880; 80061; 80053; 80048; 85652; 82150; 83690; 83735; 84484; 85025 ×2; 85610; 85730; 86140; 81001; 80306; 72070; 71046; 71275; G0378 ×2; J2270; J1644 ×2; J2405 ×2; J1170; Q9967

== ENCOUNTER 2020-07-22 14:06 | Emergency (ER) | payer MEDICARE ==
[2020-07-22 14:17] VITALS: RESP 18; TEMP 98.1
[2020-07-22] MEDS ORDERED: HYDROcodone/APAP 5-325MG 1 EACH TAB PO STA (14:23)
--- NOTE | 2020-07-22 15:18 | XR ---
EXAMINATION TYPE: XR knee complete LT DATE OF EXAM: 07/22/2020 COMPARISON: NONE HISTORY: Fall. Pain TECHNIQUE: 4 views FINDINGS: I see no fracture nor dislocation. Joint spaces are normal. There is no sign of knee joint effusion. IMPRESSION: Negative left knee exam.
--- NOTE | 2020-07-22 15:19 | XR ---
EXAMINATION TYPE: XR ankle complete RT DATE OF EXAM: 07/22/2020 COMPARISON: NONE HISTORY: Pain and swelling TECHNIQUE: 3 views FINDINGS: There is moderate soft tissue swelling over the lateral malleolus. Ankle mortise is anatomi c. I see no fracture. IMPRESSION: Soft tissue swelling. No fracture seen.
--- NOTE | 2020-07-22 15:25 | ED ---
Lower Extremity Injury HPI - General Chief Complaint: Extremity Injury, Lower Stated Complaint: R Ankle Injury Time Seen by Provider: 07/22/20 14:21 Source: patient Mode of arrival: wheelchair Limitations: no limitations - History of Present Illness Initial Comments: 60-year-old feel presenting today for chief complaint of right ankle pain. Patient states that she inverted her right ankle. Patient states that this occurred she stepped from a chair and her ankle was asleep. Patient states that she has had swelling on the lateral aspect since and pain. Patient is concerned of possible fracture she states she is able to weight-bear but this is painful. She has a numbness tingling loss of sensation or coolness or pallor of the extremity tonight and injured her head and neck abdomen chest. Patient states she was able to cut herself landed on her left knee she states she does have an abrasion on that knee but states she is able to fully range weight-bear and ambulate. - Related Data Home Medications Medication Instructions Recorded Confirmed DULoxetine HCL [Cymbalta] 60 mg PO HS 04/02/18 11/23/19 HYDROcodone/APAP 10-325MG [[place] 1 tab PO TID PRN 04/22/19 11/23/19 10-325] Aspirin EC [Ecotrin Low Dose] 81 mg PO DAILY 11/23/19 11/23/19 Previous Rx's Medication Instructions Recorded Acetaminophen Tab [Tylenol] 500 mg PO Q6HR PRN tab 11/24/19 Allergies Allergy/AdvReac Type Severity Reaction Status Date / Time hydrogen peroxide Allergy rash and Verified 07/22/20 14:18 skin burn Latex, Natural Rubber Allergy Swelling Verified 07/22/20 14:18 metronidazole Allergy Unknown Verified 07/22/20 14:18 fentanyl AdvReac decreased Verified 07/22/20 14:18 bp isosorbide AdvReac Rapid Verified 07/22/20 14:18 Heart Rate Review of Systems ROS Statement: Those systems with pertinent positive or pertinent negative responses have been documented in the HPI. ROS Other: All systems not noted in ROS Statement are negative. Past Medical History Past Medical History: Chest Pain / Angina, COPD, Deep Vein Thrombosis (DVT), Eye Disorder, GERD/Reflux, Hyperlipidemia, Pneumonia, Pulmonary Embolus (PE), Syncope Additional Past Medical History / Comment(s): Chronic back and bilateral knee pain, DDD, cervical/back "nerve damage", "low BP", DVT right thigh, bilateral PEs in 2010 and 2015, migraines, osteoporosis, IBS, vertigo at times, R wrist 2 cysts, pt states since cataract surgery her vision has declined. History of Any Multi-Drug Resistant Organisms: None Reported Past Surgical History: Appendectomy, Cholecystectomy, Heart Catheterization Additional Past Surgical History / Comment(s): EGD/COLONOSCOPY/POLYPECTOMY- BENIGN, cardiac cath 06/10/16-normal, back/bilateral knee injections. epidural steroid inj -back, bilateral cataract removals/lens implants. Past Anesthesia/Blood Transfusion Reactions: No Reported Reaction Additional Past Anesthesia/Blood Transfusion Reaction / Comment(s): Pt has clausterphobia. Past Psychological History: Bipolar, Depression, Schizophrenia Smoking Status: Current every day smoker Past Alcohol Use History: None Reported Past Drug Use History: Marijuana - Past Family History Mother Family Medical History: Cancer, COPD, Hypertension Additional Family Medical History / Comment(s): Mother of LUNG CANCER at the age of 74yrs. Father Family Medical History: CVA/TIA, Hypertension Additional Family Medical History / Comment(s): Father had 2 CVAs and from the second one at the age of 52yrs. He was an alcoholic. General Exam - General Exam Comments Initial Comments: General: The patient is awake and alert, in no distress Eye: Pupils are equal, round and reactive to light, extra-ocular movements are intact. No nystagmus. There is normal conjunctiva bilaterally. No signs of icterus. Ears, nose, mouth and throat: There are moist mucous membranes and no oral lesions. Neck: The neck is supple, there is no tenderness or JVD. Cardiovascular: There is a regular rate and rhythm. No murmur, rub or gallop is appreciated. Respiratory: Lungs are clear to auscultation, respirations are non-labored, breath sounds are equal. No wheezes, stridor, rales, or rhonchi. Musculoskeletal: On inspection of the ankles bilaterally there is lateral swelling of the right ankle. And pain. Patient is able to weight-bear fully range however there is tenderness in the ankle joint. Patient is no proximal tibia-fibula pain to palpation. Patient is no full foot or forefoot pain. Patient does have an abrasion over the left anterior knee. Full range motion of left knee without difficulty. Strength intact compartments are soft and compressible sensation intact of the lower extremity is both proximal distal injury sites +2 dorsalis pedis pulses equal comparison bilaterally. There is no evidence of footdrop and extensor mechanism is intact bilaterally. N Neurological: A&O x 3. CN II-XII intact grossly, There are no obvious motor or sensory deficits. Coordination appears grossly intact. Speech is normal. Skin: Skin is warm and dry and no rashes or lesions are noted. Psychiatric: Cooperative, appropriate mood & affect, normal judgment. Limitations: no limitations Course Vital Signs 07/22/20 07/22/20 14:13 15:34 Temperature 98.1 F Pulse Rate 82 83 Respiratory 18 18 Rate Blood Pressure 101/68 119/76 O2 Sat by Pulse 97 96 Oximetry Medical Decision Making - Medical Decision Making X-ray negative for fracture. Suspect sprain patient is placed in a air stirrup splint. Patient was neurovascular intact orbits are soft and compressible. Patient denies any other areas of injury aside from the abrasion of the left knee which revealed no fracture. Patient states she got up to date I discussed wound care and patient was discharged appearing well with instruction to f/u with orthopedic surgery Disposition Clinical Impression: Right ankle sprain, Fall, Abrasion of left knee Disposition: HOME SELF-CARE Condition: Good Instructions (If sedation given, give patient instructions): Ankle Sprain (ED) Additional Instructions: Please use medication as discussed. Please follow-up with family doctor in the next 2 days Please return to emergency room if the symptoms increase or worsen or for any other concerns. Is patient prescribed a controlled substance at d/c from ED?: No Referrals: Pinky Becker MD [Primary Care Provider] - 1-2 days Time of Disposition: 15:25
[2020-07-22 15:36] VITALS: BP 119/76; PULSE 83
== END 2020-07-22 15:39 | disposition home or self-care (01) ==
LOC: EC 14:06
DX: S93.401A Sprain of unspecified ligament of right ankle, initial encounter (principal); S80.212A Abrasion, left knee, initial encounter; I20.9 Angina pectoris, unspecified; G89.29 Other chronic pain; M54.9 Dorsalgia, unspecified; F31.9 Bipolar disorder, unspecified; F17.200 Nicotine dependence, unspecified, uncomplicated; Z79.82 Long term (current) use of aspirin; Z79.899 Other long term (current) drug therapy; Z91.040 Latex allergy status; Z91.09 Other allergy status, other than to drugs and biological substances; Z88.1 Allergy status to other antibiotic agents; Z88.5 Allergy status to narcotic agent; Z88.8 Allergy status to other drugs, medicaments and biological substances; Z86.718 Personal history of other venous thrombosis and embolism; Z86.711 Personal history of pulmonary embolism; W18.31XA Fall on same level due to stepping on an object, initial encounter
CPT/HCPCS: 73562; 73610; 99283; 29515; L4350

== ENCOUNTER 2021-05-23 16:23 | Emergency (ER) | payer MEDICARE ==
[2021-05-23 17:25] LABS: Basophils % (A) 1 %; Eosinophils # (A) 0.2 k/uL (0-0.7); Eosinophils % (A) 3 %; HCT 41.8 % (34.0-46.0); HGB 14.1 gm/dL (11.4-16.0); Lymphocytes # (A) 2.4 k/uL (1.0-4.8); Lymphocytes % (A) 31 %; MCH 30.3 pg (25.0-35.0); MCHC 33.8 g/dL (31.0-37.0); MCV 89.5 fL (80.0-100.0); Mean Platelet Volume 8.8; Monocytes # (A) 0.4 k/uL (0-1.0); Monocytes % (A) 5 %; Neutrophils # (A) 4.6 k/uL (1.3-7.7); Neutrophils % (A) 60 %; Platelet Count 200 k/uL (150-450); RBC 4.66 m/uL (3.80-5.40); RDW 14.2 % (11.5-15.5); WBC 7.8 k/uL (3.8-10.6)
[2021-05-23 17:35] LABS: Albumin 3.6 g/dL (3.5-5.0); Calcium 9.2 mg/dL (8.4-10.2); Potassium 3.9 mmol/L (3.5-5.1); Total Bilirubin 0.2 mg/dL (0.2-1.3); Total Protein 6.1 g/dL (6.3-8.2)
--- NOTE | 2021-05-23 17:36 | CT ---
EXAM: CT brain wo con CLINICAL HISTORY: Headache and vision loss to the right eye. COMPARISON: None TECHNIQUE: Contiguous axial noncontrast images of the brain were obtained. Coronal and sagittal refor mats were generated and reviewed. Automated dose control was used for this exam. FINDINGS: There is no evidence for intracranial hemorrhage, mass effect or midline shift. The white matter is g rossly preserved. Ventricular size and configuration is within normal limits for degree of parenchymal volume. The paranasal sinuses are clear. The mastoid air cells are clear. No evidence for calvarial fracture. IMPRESSION: No acute intracranial abnormality.
--- NOTE | 2021-05-23 18:19 | ED ---
ENT HPI - General Chief complaint: ENT Stated complaint: Can't see out of rt eye Time Seen by Provider: 05/23/21 16:52 Source: patient, RN notes reviewed Mode of arrival: ambulatory Limitations: no limitations - History of Present Illness Initial comments: 60-year-old female presents emergency Department with multiple complaints. Patient states that she has been having issues with some intermittent right eye changes. Patient states not painful she does suffer chronic ocular/migraines. Patient states this feels slightly different she has had cataract surgery were Dr. Gillette in the past. Patient states that she also noted a rash underneath her breasts states it does have follow-up odor. She states she's noticed that with the rashes worsen. Patient denies any fevers or chills no neck pain no other complaints. Denies any trauma. - Related Data Home Medications Medication Instructions Recorded Confirmed DULoxetine HCL [Cymbalta] 60 mg PO HS 04/02/18 05/23/21 Aspirin EC [Ecotrin Low Dose] 81 mg PO DAILY 11/23/19 05/23/21 Previous Rx's Medication Instructions Recorded Nystatin 100,000 Unit/gm Powd 1 applic TOPICAL TID #30 gm 05/23/21 [Mycostatin Powder] Allergies Allergy/AdvReac Type Severity Reaction Status Date / Time hydrogen peroxide Allergy rash and Verified 05/23/21 17:21 skin burn Latex, Natural Rubber Allergy Swelling Verified 05/23/21 17:21 metronidazole Allergy Unknown Verified 05/23/21 17:21 fentanyl AdvReac decreased Verified 05/23/21 17:21 bp isosorbide AdvReac Rapid Verified 05/23/21 17:21 Heart Rate Review of Systems ROS Statement: Those systems with pertinent positive or pertinent negative responses have been documented in the HPI. ROS Other: All systems not noted in ROS Statement are negative. Past Medical History Past Medical History: Chest Pain / Angina, COPD, Deep Vein Thrombosis (DVT), Eye Disorder, GERD/Reflux, Hyperlipidemia, Pneumonia, Pulmonary Embolus (PE), Syncope Additional Past Medical History / Comment(s): Chronic back and bilateral knee pain, DDD, cervical/back "nerve damage", "low BP", DVT right thigh, bilateral PEs in 2010 and 2014, migraines, osteoporosis, IBS, vertigo at times, R wrist 2 cysts, pt states since cataract surgery her vision has declined. History of Any Multi-Drug Resistant Organisms: None Reported Past Surgical History: Appendectomy, Cholecystectomy, Heart Catheterization Additional Past Surgical History / Comment(s): EGD/COLONOSCOPY/POLYPECTOMY- BENIGN, cardiac cath 06/10/16-normal, back/bilateral knee injections. epidural steroid inj -back, bilateral cataract removals/lens implants. Past Anesthesia/Blood Transfusion Reactions: No Reported Reaction Additional Past Anesthesia/Blood Transfusion Reaction / Comment(s): Pt has clausterphobia. Past Psychological History: Bipolar, Depression, Schizophrenia Smoking Status: Current every day smoker Past Alcohol Use History: None Reported Past Drug Use History: Marijuana - Past Family History Mother Family Medical History: Cancer, COPD, Hypertension Additional Family Medical History / Comment(s): Mother of LUNG CANCER at th e age of 74yrs. Father Family Medical History: CVA/TIA, Hypertension Additional Family Medical History / Comment(s): Father had 2 CVAs and from the second one at the age of 52yrs. He was an alcoholic. General Exam Limitations: no limitations General appearance: alert, in no apparent distress, anxious Head exam: Present: atraumatic, normocephalic, normal inspection Eye exam: Present: normal appearance, PERRL, EOMI. Absent: scleral icterus, conjunctival injection, periorbital swelling Respiratory exam: Present: normal lung sounds bilaterally. Absent: respiratory distress, wheezes, rales, rhonchi, stridor Cardiovascular Exam: Present: regular rate (Patient was tachycardic on triage so patient was very anxious has resolved.), normal rhythm, normal heart sounds. Ab sent: systolic murmur, diastolic murmur, rubs, gallop, clicks Neurological exam: Present: alert, oriented X3, CN II-XII intact, reflexes normal, other (Finger to nose intact bilaterally). Absent: motor sensory deficit Skin exam: Present: warm, dry, intact, normal color, rash (Erythematous raised border rash on his rest noted) Course Vital Signs 05/23/21 05/23/21 16:26 17:19 Temperature 98.3 F Pulse Rate 141 H 91 Respiratory 20 20 Rate Blood Pressure 124/72 101/70 O2 Sat by Pulse 96 95 Oximetry Medical Decision Making - Medical Decision Making Patient has tinea rash noted patient did have CT and labs which were unremarkable patient was given medications for her migraine may be causing her visual changes. 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 Gillette and return for any worsening symptoms - Lab Data Result diagrams: 05/23/21 17:18 05/23/21 17:18 Lab Results 05/23/21 05/23/21 Range/Units 17:18 17:18 WBC 7.8 (3.8-10.6) k/uL RBC 4.66 (3.80-5.40) m/uL Hgb 14.1 (11.4-16.0) gm/dL Hct 41.8 (34.0-46.0) % MCV 89.5 (80.0-100.0) fL MCH 30.3 (25.0-35.0) pg MCHC 33.8 (31.0-37.0) g/dL RDW 14.2 (11.5-15.5) % Plt Count 200 (150-450) k/uL MPV 8.8 Neutrophils % 60 % Lymphocytes % 31 % Monocytes % 5 % Eosinophils % 3 % Basophils % 1 % Neutrophils # 4.6 (1.3-7.7) k/uL Lymphocytes # 2.4 (1.0-4.8) k/uL Monocytes # 0.4 (0-1.0) k/uL Eosinophils # 0.2 (0-0.7) k/uL Basophils # 0.0 (0-0.2) k/uL Sodium 132 L (137-145) mmol/L Potassium 3.9 (3.5-5.1) mmol/L Chloride 105 (98-107) mmol/L Carbon Dioxide 22 (22-30) mmol/L Anion Gap 5 mmol/L BUN 9 (7-17) mg/dL Creatinine 0.85 (0.52-1.04) mg/dL Est GFR (CKD-EPI)AfAm 86 (>60 ml/min/1.73 sqM) Est GFR (CKD-EPI)NonAf 75 (>60 ml/min/1.73 sqM) Glucose 101 H (74-99) mg/dL Calcium 9.2 (8.4-10.2) mg/dL Total Bilirubin 0.2 (0.2-1.3) mg/dL AST 19 (14-36) U/L ALT 12 (4-34) U/L Alkaline Phosphatase 106 (38-126) U/L Total Protein 6.1 L (6.3-8.2) g/dL Albumin 3.6 (3.5-5.0) g/dL Disposition Clinical Impression: Intertriginous candidiasis, Migraine, Visual changes Disposition: HOME SELF-CARE Condition: Stable Instructions (If sedation given, give patient instructions): Tinea Corporis (ED) Additional Instructions: Please return to the Emergency Department if symptoms worsen or any other concerns. Prescriptions: Nystatin 100,000 Unit/gm Powd [Mycostatin Powder] 1 applic TOPICAL TID #30 gm Is patient prescribed a controlled substance at d/c from ED?: No Referrals: Pinky Becker MD [Primary Care Provider] - 1-2 days Nemesio Gillette MD [STAFF PHYSICIAN] - 1-2 days Time of Disposition: 18:21
[2021-05-23] MEDS ORDERED: KETOROLAC 15 MG/ML 1 ML VIAL IVP STA (18:22)
[2021-05-23] MEDS ORDERED: METOCLOPRAMIDE 5 MG/ML 2 ML VIAL IVP STA (18:22)
[2021-05-23] MEDS ORDERED: diphenhydrAMINE 50 MG/ML 1 ML VIAL IVP STA (18:22)
[2021-05-23 18:36] VITALS: BP 118/69; PULSE 75; RESP 18; TEMP 98.2
== END 2021-05-23 19:07 | disposition home or self-care (01) ==
LOC: EC 16:23
DX: H53.8 Other visual disturbances (principal); B37.2 Candidiasis of skin and nail; G43.909 Migraine, unspecified, not intractable, without status migrainosus; R21 Rash and other nonspecific skin eruption; E78.5 Hyperlipidemia, unspecified; J44.9 Chronic obstructive pulmonary disease, unspecified; K21.9 Gastro-esophageal reflux disease without esophagitis; F32.9 Major depressive disorder, single episode, unspecified; F17.200 Nicotine dependence, unspecified, uncomplicated; F12.90 Cannabis use, unspecified, uncomplicated; Z79.82 Long term (current) use of aspirin; Z91.040 Latex allergy status; Z88.1 Allergy status to other antibiotic agents; Z88.5 Allergy status to narcotic agent; Z86.718 Personal history of other venous thrombosis and embolism; Z90.49 Acquired absence of other specified parts of digestive tract; Z86.711 Personal history of pulmonary embolism
CPT/HCPCS: 99284; 96374; 96375 ×2; 36415; 93005; 80053; 85025; 70450; J1200; J2765; J1885

== ENCOUNTER 2021-07-15 11:13 | Observation (INO) | payer MEDICARE ==
[2021-07-15] MEDS ORDERED: ASPIRIN 81 MG PO STA (12:02)
[2021-07-15] MEDS ORDERED: NITROGLYCERIN OINT 1 INCH/GM PACKET TOPICAL STA (12:02)
[2021-07-15] MEDS ORDERED: LORazepam 2 MG/ML INJ IV STA (12:03)
--- NOTE | 2021-07-15 12:06 | ED ---
General Adult HPI - General Chief complaint: Chest Pain Stated complaint: chest pain Time Seen by Provider: 07/15/21 11:25 Source: patient, RN notes reviewed, old records reviewed Mode of arrival: wheelchair Limitations: no limitations - History of Present Illness Initial comments: This is a 61-year-old female who presents emergency Department complaining of chest pain. Patient states she has quite a bit of anxiety and this morning she was upset and she was having somewhat of an anxiety attack. But patient states she's never had chest pain with her anxiety attack like this in the past. Patient denies shortness of breath. Patient states the pain didn't radiate to her right arm. Patient denies diaphoresis. Patient denies nausea. Patient den ies any recent fever chills or cough per patient denies any abdominal pain patient headache patient denies lightheadedness or dizziness. - Related Data Home Medications Medication Instructions Recorded Confirmed DULoxetine HCL [Cymbalta] 60 mg PO HS 04/02/18 05/23/21 Aspirin EC [Ecotrin Low Dose] 81 mg PO DAILY 11/23/19 05/23/21 Previous Rx's Medication Instructions Recorded Nystatin 100,000 Unit/gm Powd 1 applic TOPICAL TID #30 gm 05/23/21 [Mycostatin Powder] Allergies Allergy/AdvReac Type Severity Reaction Status Date / Time hydrogen peroxide Allergy rash and Verified 07/15/21 11:27 skin burn Latex, Natural Rubber Allergy Swelling Verified 07/15/21 11:27 metronidazole Allergy Unknown Verified 07/15/21 11:27 fentanyl AdvReac decreased Verified 07/15/21 11:27 bp isosorbide AdvReac Rapid Verified 07/15/21 11:27 Heart Rate Review of Systems ROS Statement: Those systems with pertinent positive or pertinent negative responses have been documented in the HPI. ROS Other: All systems not noted in ROS Statement are negative. Past Medical History Past Medical History: Chest Pain / Angina, COPD, Deep Vein Thrombosis (DVT), Eye Disorder, GERD/Reflux, Hyperlipidemia, Pneumonia, Pulmonary Embolus (PE), Syncope Additional Past Medical History / Comment(s): Chronic back and bilateral knee pain, DDD, cervical/back "nerve damage", "low BP", DVT right thigh, bilateral PEs in 2010 and 2014, migraines, osteoporosis, IBS, vertigo at times, R wrist 2 cysts, pt states since cataract surgery her vision has declined. History of Any Multi-Drug Resistant Organisms: None Reported Past Surgical History: Appendectomy, Cholecystectomy, Heart Catheterization Additional Past Surgical History / Comment(s): EGD/COLONOSCOPY/POLYPECTOMY- BENIGN, cardiac cath 06/10/16-normal, back/bilateral knee injections. epidural steroid inj -back, bilateral cataract removals/lens implants. Past Anesthesia/Blood Transfusion Reactions: No Reported Reaction Additional Past Anesthesia/Blood Transfusion Reaction / Comment(s): Pt has clausterphobia. Past Psychological History: Bipolar, Depression, Schizophrenia Smoking Status: Current every day smoker Past Alcohol Use History: None Reported Past Drug Use History: Marijuana - Past Family History Mother Family Medical History: Cancer, COPD, Hypertension Additional Family Medical History / Comment(s): Mother of LUNG CANCER at the age of 74yrs. Father Family Medical History: CVA/TIA, Hypertension Additional Family Medical History / Comment(s): Father had 2 CVAs and from the second one at the age of 52yrs. He was an alcoholic. General Exam - General Exam Comments Initial Comments: GENERAL: Patient is well-developed and well-nourished. Patient is nontoxic and well- hydrated and is in mild distress. ENT: Neck is soft and supple. No significant lymphadenopathy is noted. Oropharynx is clear. Moist mucous membranes. Neck has full range of motion without eliciting any pain. EYES: The sclera were anicteric and conjunctiva were pink and moist. Extraocular movements were intact and pupils were equal round and reactive to light. Eyelids were unremarkable. PULMONARY: Unlabored respirations. Good breath sounds bilaterally. No audible rales rhonchi or wheezing was noted. CARDIOVASCULAR: There is a regular rate and rhythm without any murmurs gallops or rubs. ABDOMEN: Soft and nontender with normal bowel sounds. SKIN: Skin is clear with no lesions or rashes and otherwise unremarkable. NEUROLOGIC: Patient is alert and oriented x3. Cranial nerves II through XII are grossly intact. Motor and sensory are also intact. Normal speech, volume and content. Symmetrical smile. MUSCULOSKELETAL: Normal extremities with adequate strength and full range of motion. No lower extremity swelling or edema. No calf tenderness. LYMPHATICS: No significant lymphadenopathy is noted PSYCHIATRIC: Patient is mildly anxious. Limitations: no limitations Course Vital Signs 10/03/21 10/03/21 11:25 11:50 Temperature 98.0 F Pulse Rate 88 71 Respiratory 20 18 Rate Blood Pressure 135/72 128/69 O2 Sat by Pulse 98 97 Oximetry Medical Decision Making - Medical Decision Making EKG shows normal sinus rhythm at 70 bpm MT interval 124 QRS is 88 QT interval 376 QTC is 420. Patient's EKG shows no ST segment elevation or depression. Chest x-ray shows no acute abnormality. - Lab Data Result diagrams: 07/15/21 11:53 07/15/21 11:53 Lab Results 07/15/21 07/15/21 07/15/21 Range/Units 11:53 11:53 11:53 WBC 7.6 (3.8-10.6) k/uL RBC 4.57 (3.80-5.40) m/uL Hgb 13.5 (11.4-16.0) gm/dL Hct 40.8 (34.0-46.0) % MCV 89.3 (80.0-100.0) fL MCH 29.7 (25.0-35.0) pg MCHC 33.2 (31.0-37.0) g/dL RDW 13.9 (11.5-15.5) % Plt Count 200 (150-450) k/uL MPV 9.2 Neutrophils % 53 % Lymphocytes % 37 % Monocytes % 4 % Eosinophils % 2 % Basophils % 1 % Neutrophils # 4.1 (1.3-7.7) k/uL Lymphocytes # 2.9 (1.0-4.8) k/uL Monocytes # 0.3 (0-1.0) k/uL Eosinophils # 0.2 (0-0.7) k/uL Basophils # 0.1 (0-0.2) k/uL PT 9.6 (9.0-12.0) sec INR 0.9 (<1.2) APTT 23.0 (22.0-30.0) sec Sodium 134 L (137-145) mmol/L Potassium 4.1 (3.5-5.1) mmol/L Chloride 107 (98-107) mmol/L Carbon Dioxide 22 (22-30) mmol/L Anion Gap 5 mmol/L BUN 8 (7-17) mg/dL Creatinine 0.80 (0.52-1.04) mg/dL Est GFR (CKD-EPI)AfAm >90 (>60 ml/min/1.73 sqM) Est GFR (CKD-EPI)NonAf 80 (>60 ml/min/1.73 sqM) Glucose 100 H (74-99) mg/dL Calcium 9.5 (8.4-10.2) mg/dL Magnesium 2.1 (1.6-2.3) mg/dL Total Bilirubin 0.3 (0.2-1.3) mg/dL AST 20 (14-36) U/L ALT 12 (4-34) U/L Alkaline Phosphatase 113 (38-126) U/L Troponin I (0.000-0.034) ng/mL Total Protein 6.4 (6.3-8.2) g/dL Albumin 3.6 (3.5-5.0) g/dL 07/15/21 Range/Units 11:53 WBC (3.8-10.6) k/uL RBC (3.80-5.40) m/uL Hgb (11.4-16.0) gm/dL Hct (34.0-46.0) % MCV (80.0-100.0) fL MCH (25.0-35.0) pg MCHC (31.0-37.0) g/dL RDW (11.5-15.5) % Plt Count (150-450) k/uL MPV Neutrophils % % Lymphocytes % % Monocytes % % Eosinophils % % Basophils % % Neutrophils # (1.3-7.7) k/uL Lymphocytes # (1.0-4.8) k/uL Monocytes # (0-1.0) k/uL Eosinophils # (0-0.7) k/uL Basophils # (0-0.2) k/uL PT (9.0-12.0) sec INR (<1.2) APTT (22.0-30.0) sec Sodium (137-145) mmol/L Potassium (3.5-5.1) mmol/L Chloride (98-107) mmol/L Carbon Dioxide (22-30) mmol/L Anion Gap mmol/L BUN (7-17) mg/dL Creatinine (0.52-1.04) mg/dL Est GFR (CKD-EPI)AfAm (>60 ml/min/1.73 sqM) Est GFR (CKD-EPI)NonAf (>60 ml/min/1.73 sqM) Glucose (74-99) mg/dL Calcium (8.4-10.2) mg/dL Magnesium (1.6-2.3) mg/dL Total Bilirubin (0.2-1.3) mg/dL AST (14-36) U/L ALT (4-34) U/L Alkaline Phosphatase (38-126) U/L Troponin I <0.012 (0.000-0.034) ng/mL Total Protein (6.3-8.2) g/dL Albumin (3.5-5.0) g/dL Disposition Clinical Impression: Chest pressure Disposition: ADMITTED IP TO THIS HOSP Is patient prescribed a controlled substance at d/c from ED?: No Referrals: Pinky Becker MD [Primary Care Provider] - 1-2 days Time of Disposition: 13:03
[2021-07-15 12:11] LABS: Basophils # (A) 0.1 k/uL (0-0.2); Basophils % (A) 1 %; Eosinophils # (A) 0.2 k/uL (0-0.7); Eosinophils % (A) 2 %; HCT 40.8 % (34.0-46.0); HGB 13.5 gm/dL (11.4-16.0); Lymphocytes # (A) 2.9 k/uL (1.0-4.8); Lymphocytes % (A) 37 %; MCH 29.7 pg (25.0-35.0); MCHC 33.2 g/dL (31.0-37.0); MCV 89.3 fL (80.0-100.0); Mean Platelet Volume 9.2; Monocytes # (A) 0.3 k/uL (0-1.0); Monocytes % (A) 4 %; Neutrophils # (A) 4.1 k/uL (1.3-7.7); Neutrophils % (A) 53 %; Platelet Count 200 k/uL (150-450); RBC 4.57 m/uL (3.80-5.40); RDW 13.9 % (11.5-15.5); WBC 7.6 k/uL (3.8-10.6)
[2021-07-15 12:22] LABS: ALT 12 U/L (4-34); AST 20 U/L (14-36); African American GFR (CKD) >90 (>60 ml/min/1.73 sqM); Albumin 3.6 g/dL (3.5-5.0); Alkaline Phosphatase 113 U/L (38-126); Anion Gap 5 mmol/L; Blood Urea Nitrogen 8 mg/dL (7-17); Calcium 9.5 mg/dL (8.4-10.2); Carbon Dioxide 22 mmol/L (22-30); Chloride 107 mmol/L (98-107); Glucose 100 mg/dL (74-99); INR 0.9 (<1.2); Magnesium 2.1 mg/dL (1.6-2.3); Non-African American GFR(CKD) 80 (>60 ml/min/1.73 sqM); Potassium 4.1 mmol/L (3.5-5.1); Prothrombin Time 9.6 sec (9.0-12.0); Sodium 134 mmol/L (137-145); Total Bilirubin 0.3 mg/dL (0.2-1.3); Total Protein 6.4 g/dL (6.3-8.2)
--- NOTE | 2021-07-15 12:31 | XR ---
EXAMINATION TYPE: XR chest 2V DATE OF EXAM: 07/15/2021 COMPARISON: Chest x-ray and CT chest November 23, 2019 HISTORY: Chest pain. TECHNIQUE: Frontal and lateral views of the chest are obtained. FINDINGS: There is mild emphysematous change with mild left basilar linear scarring redemonstrated. There is no new suspicious focal air space opacity, pleural effusion, or pneumothorax seen. The card iac silhouette size is stable and within normal limits. The osseous structures remain demineralized . IMPRESSION: Chronic changes without acute pulmonary process.
[2021-07-15] MEDS ORDERED: NITROGLYCERIN SL TABS 0.4 MG TAB SUBLINGUAL PRN (13:04)
--- NOTE | 2021-07-15 15:02 | P.HPIM ---
History of Present Illness H&P Date: 07/15/21 Chief Complaint: Chest 61-year-old female with history of COPD, DVT/PE, hyperlipidemia who presents emergency Department complaining of chest pain. Patient states she has quite a bit of anxiety and this morning she was upset and she was having somewhat of an anxiety attack. But patient states she's never had chest pain with her anxiety attack like this in the past. Patient denies shortness of breath. Patient states the pain didn't radiate to her right arm. Patient denies diaphoresis. Patient denies nausea. Patient denies any recent fever chills or cough per flaco ent denies any abdominal pain patient headache patient denies lightheadedness or dizziness. Workup in ED including an EKG reveals normal sinus rhythm with no acute ST or T- wave changes; chest x-ray shows no acute abnormality Blood work done reveals WBC of 7.6, hemoglobin 13.5, sodium 134, potassium 4.9 and blood glucose of 100 Patient is being admitted to hospital for further evaluation of chest pain Review of Systems REVIEW OF SYSTEMS: CONSTITUTIONAL: No fever, no malaise, no fatigue. HEENT: No recent visual problems or hearing problems. Denied any sore throat. CARDIOVASCULAR: No chest pain, orthopnea, PND, no palpitations, no syncope. PULMONARY: No shortness of breath, no cough, no hemoptysis. GASTROINTESTINAL: No diarrhea, no nausea, no vomiting, no abdominal pain. NEUROLOGICAL: No headaches, no weakness, no numbness. HEMATOLOGICAL: Denies any bleeding or petechiae. GENITOURINARY: Denies any burning micturition, frequency, or urgency. MUSCULOSKELETAL/RHEUMATOLOGICAL: Denies any joint pain, swelling, or any muscle pain. ENDOCRINE: Denies any polyuria or polydipsia. The rest of the 14-point review of systems is negative. Past Medical History Past Medical History: Chest Pain / Angina, COPD, Deep Vein Thrombosis (DVT), Eye Disorder, GERD/Reflux, Hyperlipidemia, Pneumonia, Pulmonary Embolus (PE), Syncope Additional Past Medical History / Comment(s): Chronic back and bilateral knee pain, DDD, cervical/back "nerve damage", "low BP", DVT right thigh, bilateral PEs in 2010 and 2014, migraines, osteoporosis, IBS, vertigo at times, R wrist 2 cysts, pt states since cataract surgery her vision has declined. History of Any Multi-Drug Resistant Organisms: None Reported Past Surgical History: Appendectomy, Cholecystectomy, Heart Catheterization Additional Past Surgical History / Comment(s): EGD/COLONOSCOPY/POLYPECTOMY- BENIGN, cardiac cath 06/10/16-normal, back/bilateral knee injections. epidural steroid inj -back, bilateral cataract removals/lens implants. Past Anesthesia/Blood Transfusion Reactions: No Reported Reaction Additional Past Anesthesia/Blood Transfusion Reaction / Comment(s): Pt has clausterphobia. Past Psychological History: Bipolar, Depression, Schizophrenia Smoking Status: Current every day smoker Past Alcohol Use History: None Reported Past Drug Use History: Marijuana - Past Family History Mother Family Medical History: Cancer, COPD, Hypertension Additional Family Medical History / Comment(s): Mother of LUNG CANCER at the age of 74yrs. Father Family Medical History: CVA/TIA, Hypertension Additional Family Medical History / Comment(s): Father had 2 CVAs and from the second one at the age of 52yrs. He was an alcoholic. Medications and Allergies Home Medications Medication Instructions Recorded Confirmed Type DULoxetine HCL [Cymbalta] 60 mg PO HS 04/02/18 07/15/21 History Aspirin EC [Ecotrin Low Dose] 81 mg PO DAILY 11/23/19 07/15/21 History Allergies Allergy/AdvReac Type Severity Reaction Status Date / Time hydrogen peroxide Allergy rash and Verified 07/15/21 13:15 skin burn Latex, Natural Rubber Allergy Swelling Verified 07/15/21 13:15 metronidazole Allergy Unknown Verified 07/15/21 13:15 fentanyl AdvReac decreased Verified 07/15/21 13:15 bp isosorbide AdvReac Rapid Verified 07/15/21 13:15 Heart Rate Physical Exam Vitals: Vital Signs Temp Pulse Resp BP Pulse Ox 07/15/21 13:26 98.2 F 07/15/21 13:00 75 18 114/76 95 07/15/21 12:00 96 18 128/69 95 07/15/21 11:50 71 18 128/69 97 07/15/21 11:25 98.0 F 88 20 135/72 98 Intake and Output 07/14/21 07/15/21 07/15/21 22:59 06:59 14:59 Other: Weight 77.111 kg - Constitutional General appearance: Present: average body habitus, cooperative, no acute distress - EENT Eyes: Present: anicteric sclerae, EOMI, PERRLA, normal appearance ENT: Present: hearing grossly normal, normal oropharynx Ears: bilateral: normal - Neck Neck: Present: normal ROM. Absent: lymphadenopathy, rigidity, thyromegaly Carotids: negative: bruit present Thyroid: bilateral: normal size, negative: enlarged, nodule - Respiratory Respiratory: bilateral: CTA, negative: rales, rhonchi, wheezing - Cardiovascular Rhythm: regular Heart sounds: normal: S1, S2 Abnormal Heart Sounds: Absent: systolic murmur, diastolic murmur - Gastrointestinal General gastrointestinal: Present: normal bowel sounds, soft. Absent: distended, organomegaly, tenderness - Genitourinary Genitourinary Comment(s): deferred - Integumentary Integumentary: Present: normal turgor. Absent: jaundiced, rash, ulcer - Neurologic Neurologic: Present: CNII-XII intact. Absent: focal deficits - Musculoskeletal Musculoskeletal: Present: gait normal, strength equal bilaterally - Psychiatric Psychiatric: Present: A&O x's 3, appropriate affect, intact judgment & insight Results CBC & Chem 7: 07/15/21 11:53 07/15/21 11:53 Labs: Abnormal Lab Results - Last 24 Hours (Table) 07/15/21 Range/Units 11:53 Sodium 134 L (137-145) mmol/L Glucose 100 H (74-99) mg/dL Assessment and Plan Assessment: 1. Chest pain rule out acute coronary syndrome - We will admit patient to telemetry; monitor EKG and trend troponin; 2-D echo; order lipid profile; patient takes aspirin 81 mg daily which we will continue; add low-dose patricia therapy; cardiology is consulted for further recommendations 2. Hyperlipidemia; patient is currently not on any statin therapy; we will order fasting lipid profile and make further recommendations 3. DVT/PE; patient had bilateral PE in 2010 and 2014; currently not on any anticoagulation therapy 4. Depression; continue with home dose of Cymbalta DVT prophylaxis; SCDs/subcu Lovenox CODE STATUS; full code
[2021-07-15] MEDS: NITROGLYCERIN OINT 1 INCH/GM PACKET TOPICAL SCH ×2 (17:25→23:17)
[2021-07-15] MEDS: DULoxetine HCL 60 MG CAPSULE.DR PO SCH (20:00)
[2021-07-15] MEDS: ACETAMINOPHEN TAB 325 MG TAB PO PRN (20:00)
[2021-07-15] MEDS ORDERED: MORPHINE SULFATE 2 MG/ML SYRINGE IVP PRN (20:47)
[2021-07-15] MEDS ORDERED: LORazepam 2 MG/ML INJ IV PRN (20:48)
[2021-07-15] MEDS ORDERED: LORazepam 0.5 MG TAB PO PRN (20:51)
[2021-07-15] MEDS ORDERED: METOPROLOL TARTRATE 12.5 MG TAB PO SCH (21:00)
[2021-07-15] MEDS: NICOTINE 14MG/24HR PATCH TRANSDERM SCH (21:52)
[2021-07-16] MEDS: ACETAMINOPHEN TAB 325 MG TAB PO PRN ×2 (04:05→21:07)
[2021-07-16] MEDS: NITROGLYCERIN OINT 1 INCH/GM PACKET TOPICAL SCH (05:02)
[2021-07-16] MEDS: ENOXAPARIN 40 MG/0.4 ML SYRINGE SQ SCH (08:50)
[2021-07-16] MEDS: ASPIRIN 81 MG PO SCH (08:50)
[2021-07-16] MEDS: NICOTINE 14MG/24HR PATCH TRANSDERM SCH (08:50)
[2021-07-16] MEDS ORDERED: ASPIRIN 325 MG TAB PO SCH (09:00)
[2021-07-16 09:13] LABS: African American GFR (CKD) 116.2 (60.0-200.0); Anion Gap 10.6 mmol/L (4.00-12.00); BUN/Creat Ratio 16.24 Ratio (12.00-20.00); Blood Urea Nitrogen 9.2 mg/dL (9.0-27.0); Calcium 8.8 mg/dL (8.7-10.3); Carbon Dioxide 21.1 mmol/L (21.6-31.8); Chol/HDL Ratio 4.66 Ratio; HDL Cholesterol 47.6 mg/dL (40.00-60.00); LDL Cholesterol,Calculated 160.2 mg/dL (0.0-131.0); Non-African American GFR(CKD) 100.2 (60.0-200.0); Potassium 4.6 mmol/L (3.5-5.5); Triglycerides 70.8 mg/dL (0.00-149.00); VLDL Calculation 14.16 mg/dL (5.00-40.00)
[2021-07-16] MEDS ORDERED: ALPRAZolam 0.5 MG TAB PO STA (10:14)
[2021-07-16] MEDS ORDERED: SODIUM CHLORIDE 0.9% 500 ML 500 ML IV ONE (10:14)
[2021-07-16] MEDS ORDERED: ALPRAZolam 0.5 MG TAB PO PRN (10:14)
--- NOTE | 2021-07-16 10:21 | P.PN ---
Subjective Recurrent 61-year-old female with history of COPD, DVT/PE, hyperlipidemia who presents emergency Department complaining of chest pain. Patient states she has quite a bit of anxiety and this morning she was upset and she was having somewhat of an anxiety attack. But patient states she's never had chest pain with her anxiety attack like this in the past. Patient denies shortness of breath. Patient states the pain didn't radiate to her right arm. Patient denies diaphoresis. Patient denies nausea. Patient denies any recent fever chills or cough per patient denies any abdominal pain patient headache patient denies lightheadedness or dizziness. Workup in ED including an EKG reveals normal sinus rhythm with no acute ST or T- wave changes; chest x-ray shows no acute abnormality Blood work done reveals WBC of 7.6, hemoglobin 13.5, sodium 134, potassium 4.9 and blood glucose of 100 Patient is being admitted to hospital for further evaluation of chest pain Subjective: 07/16/2021 Patient is a pleasant 61 years old female who presents because of chest pain of 2 days' duration, her pain is below both breasts Brock on the left side radiati ng to the left chest and sometimes to the armpit, currently is improving down to 4/10. She had this chest pain after she had a quarrel with her son from [place] , for that she had severe anxiety attack and then her chest pain came in. He feel really anxious, though less degree depressed but she denies any homicidal or suicidal ideation. She is already on Cymbalta for depression. She wants something for anxiety, currently she is on Ativan which was switched to oral Xanax and BuSpar is admitted also to help with anxiety Patient admitted with [facility] consulted for her chest pain. Also patient states she has history of PE 2 years ago. But she denies any leg pain or swelling. Hemodynamically stable. Vitals are stable. Labs reviewed the looks stable. Creatinine is 0.6. Pressure is low normal. She is already on aspirin 81 mg. Ativan and start Xanax when necessary and BuSpar. All check d-dimer. CTA of the chest, risks including but not limited to nephrotoxicity and ALLERGY are explained for the patient and she verbalized understanding and agreement with the test stating that she had it before Objective - Vital Signs Vital signs: Vital Signs Temp 98.2 F 07/16/21 08:14 Pulse 72 07/16/21 08:14 Resp 18 07/16/21 08:14 BP 114/71 07/16/21 08:14 Pulse Ox 97 07/16/21 08:14 Intake & Output 07/15/21 07/16/21 07/16/21 18:59 06:59 18:59 Intake Total 120 Balance 120 Weight 77.111 kg Intake: Oral 120 Other: # Voids 1 2 - Exam GENERAL: The patient is alert and oriented x3, not in any acute distress. Well developed, well nourished. HEENT: Pupils are round and equally reacting to light. EOMI. No scleral icterus. No conjunctival pallor. Normocephalic, atraumatic. No pharyngeal erythema. No thyromegaly. CARDIOVASCULAR: S1 and S2 present. No murmurs, rubs, or gallops. PULMONARY: Chest is clear to auscultation, no wheezing or crackles. ABDOMEN: Soft, nontender, nondistended, normoactive bowel sounds. No palpable organomegaly. MUSCULOSKELETAL: No joint swelling or deformity. EXTREMITIES: No cyanosis, clubbing, or pedal edema. NEUROLOGICAL: Gross neurological examination did not reveal any focal deficits. SKIN: No rashes. no petechiae. - Labs CBC & Chem 7: 07/15/21 11:53 07/16/21 04:57 Labs: Abnormal Lab Results - Last 24 Hours (Table) 07/15/21 07/16/21 Range/Units 11:53 04:57 Sodium 134 L (137-145) mmol/L Carbon Dioxide 21.1 L (21.6-31.8) mmol/L Glucose 100 H (74-99) mg/dL Cholesterol 222.00 H (0.00-200.00) mg/dL LDL Cholesterol, Calc 160.2 H (0.0-131.0) mg/dL Assessment and Plan Assessment: Chest pain, rule out cardiac and pulmonary causes Anxiety after family dispute History of depression, not in active tissue Hyperlipidemia History of bilateral PE and DVT. Plan: This is a pleasant 61 years old female who presents with chest pain and anxiety. Echocardiogram, continue with aspirin. Follow-up with [employer] [facility] consult Elevated d-dimer, we will do CTA of the chest if it's come back positive Labs and medication were reviewed.. Continue same treatment. Continue with symptomatic treatment. Resume home medication. Monitor lytes and vitals. DVT and GI prophylaxis. Further recommendationsas per clinical course of the patient DVT prophylaxis: Subcutaneous Lovenox GI Prophylaxis: Pepcid Prognosis is guarded
[2021-07-16] MEDS: SODIUM CHLORIDE 0.9% 1,000 ML IV SCH (10:39)
[2021-07-16] MEDS: ATORVASTATIN 40 MG TAB PO SCH (11:04)
[2021-07-16] MEDS: busPIRone HCl 5 MG TAB PO SCH ×3 (11:04→21:07)
[2021-07-16] MEDS: FAMOTIDINE 20 MG/2 ML VIAL IV SCH ×2 (11:04→21:07)
--- NOTE | 2021-07-16 12:18 | P.CRDCN ---
History of Present Illness History of present illness: HISTORY OF PRESENTING ILLNESS This is a pleasant 61-year-old female past medical history significant for COPD, chronic back pain, anxiety, schizophrenia, history of DVT and PEs and chronic nicotine dependence. 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 We have been asked to see in consultation for chest pain. She states yesterday she was having an intense argument with her son when she developed discomfort in her chest. She states it felt like a pressure sensation under the left breast that radiated across her whole chest. She had access to sublingual nitroglycerin at home and took one pill. The chest discomfort then moved to the right side. She states over the previous couple of weeks she has noticed increase in her level of sweating. She says for no reason at all she will become extremely diaphoretic. She denies exertional chest discomfort. She denies associated shortness of breath, dizziness or palpitations. She has had no further symptoms of chest discomfort since arriving at the hospital. DIAGNOSTICS EKG reveals sinus rhythm heart rate of [address] or T wave abnormalities noted. Telemetry tracings indicate sinus mechanism. Chest xray negative for an acute cardiopulmonary process with underlying emphysematous changes. Laboratory reviewed, CBC unremarkable, sodium 136, potassium 4.6, creatinine 0.6, magnesium 2.1, cardiac enzymes negative x3, LDL 160 and HDL 47. Current cardiac medications include aspirin 81 mg daily. Most recent stress test performed in 2019 with a dobutamine stress echocardiogram that was negative for stress-induced ischemia. Most recent echocardiogram obtained in 2019 revealed preserved LV systolic function with ejection fraction 60-65%. REVIEW OF SYSTEMS At the time of my exam: CONSTITUTIONAL: Denies fever or chills. CARDIOVASCULAR: Denies chest pain, shortness of breath, orthopnea, PND or palpitations. RESPIRATORY: Denies cough. GASTROINTESTINAL: Denies abdominal pain, diarrhea, constipation, nausea or vomiting. MUSCULOSKELETAL: Denies myalgias. NEUROLOGIC: Denies numbness, tingling, headache or weakness. ENDOCRINE: Denies fatigue, weight change, polydipsia or polyurina. GENITOURINARY: Denies burning, hematuria or urgency with micturation. HEMATOLOGIC: Denies history of anemia or bleeding. PHYSICAL EXAMINATION Blood pressure 114/71 heart rate 72 afebrile and maintaining oxygen saturation on room air. CONSTITUTIONAL: No apparent distress. HEENT: Head is normocephalic. Pupils are equal, round. Sclerae anicteric. Mucous membranes of the mouth are moist. No JVD. No carotid bruit. CHEST EXAMINATION: Expiratory wheeze, no rhonchi or rales. No chest wall tenderness is noted on palpation or with deep breathing. HEART EXAMINATION: Regular rate and rhythm. S1, S2 heard. No murmurs, gallops or rub. ABDOMEN: Soft, nontender. EXTREMITIES: 2+ peripheral pulses, no lower extremity edema and no calf tenderness. NEUROLOGIC EXAMINATION: Patient is awake, alert and oriented x3. ASSESSMENT Chest pain, atypical Dyslipidemia Chronic nicotine dependence COPD History of schizophrenia and anxiety PLAN An acute coronary event has been ruled out. D-dimer pending. Echocardiogram has been ordered and will be reviewed. Recommend moderate intensity statin to lower her risk of cardiovascular event with 10-year risk of 7.2%. Thank you kindly for this consultation. Nurse Practitioner note has been reviewed, I agree with a documented findings and plan of care. Patient was seen and examined. Past Medical History Past Medical History: Chest Pain / Angina, COPD, Deep Vein Thrombosis (DVT), Eye Disorder, GERD/Reflux, Hyperlipidemia, Pneumonia, Pulmonary Embolus (PE), Syncope Additional Past Medical History / Comment(s): Chronic back and bilateral knee pain, DDD, cervical/back "nerve damage", "low BP", DVT right thigh, bilateral PEs in 2010 and 2014, migraines, osteoporosis, IBS, vertigo at times, R wrist 2 cysts, pt states since cataract surgery her vision has declined. History of Any Multi-Drug Resistant Organisms: None Reported Past Surgical History: Appendectomy, Cholecystectomy, Heart Catheterization Additional Past Surgical History / Comment(s): EGD/COLONOSCOPY/POLYPECTOMY- BENIGN, cardiac cath 06/10/16-normal, back/bilateral knee injections. epidural steroid inj -back, bilateral cataract removals/lens implants. Past Anesthesia/Blood Transfusion Reactions: No Reported Reaction Additional Past Anesthesia/Blood Transfusion Reaction / Comment(s): Pt has clausterphobia. Past Psychological History: Bipolar, Depression, Schizophrenia Smoking Status: Current every day smoker Past Alcohol Use History: None Reported Past Drug Use History: Marijuana - Past Family History Mother Family Medical History: Cancer, COPD, Hypertension Additional Family Medical History / Comment(s): Mother of LUNG CANCER at the age of 74yrs. Father Family Medical History: CVA/TIA, Hypertension Additional Family Medical History / Comment(s): Father had 2 CVAs and from the second one at the age of 52yrs. He was an alcoholic. Medications and Allergies Home Medications Medication Instructions Recorded Confirmed Type DULoxetine HCL [Cymbalta] 60 mg PO HS 04/02/18 07/15/21 History Aspirin EC [Ecotrin Low Dose] 81 mg PO DAILY 11/23/19 07/15/21 History Allergies Allergy/AdvReac Type Severity Reaction Status Date / Time hydrogen peroxide Allergy rash and Verified 07/15/21 13:15 skin burn Latex, Natural Rubber Allergy Swelling Verified 07/15/21 13:15 metronidazole Allergy Unknown Verified 07/15/21 13:15 fentanyl AdvReac decreased Verified 07/15/21 13:15 bp isosorbide AdvReac Rapid Verified 07/15/21 13:15 Heart Rate Physical Exam Vitals: Vital Signs Temp Pulse Pulse Resp BP BP Pulse Ox 07/16/21 01:34 97.7 F 78 16 112/70 96 07/15/21 21:50 65 90/52 07/15/21 19:04 98.3 F 87 18 94/65 95 07/15/21 14:11 98.1 F 91 18 118/70 98 07/15/21 13:26 98.2 F 07/15/21 13:00 75 18 114/76 95 07/15/21 12:00 96 18 128/69 95 07/15/21 11:50 71 18 128/69 97 07/15/21 11:25 98.0 F 88 20 135/72 98 Intake and Output 07/15/21 07/16/21 07/16/21 22:59 06:59 14:59 Intake Total 120 Balance 120 Intake: Oral 120 Other: # Voids 2 Results 07/15/21 11:53 07/16/21 04:57 Cardiac Enzymes 07/15/21 07/15/21 07/15/21 Range/Units 11:53 11:53 15:51 AST 20 (14-36) U/L Troponin I <0.012 <0.012 (0.000-0.034) ng/mL 07/15/21 Range/Units 17:45 AST (14-36) U/L Troponin I <0.012 (0.000-0.034) ng/mL Coagulation 07/15/21 Range/Units 11:53 PT 9.6 (9.0-12.0) sec APTT 23.0 (22.0-30.0) sec CBC 07/15/21 Range/Units 11:53 WBC 7.6 (3.8-10.6) k/uL RBC 4.57 (3.80-5.40) m/uL Hgb 13.5 (11.4-16.0) gm/dL Hct 40.8 (34.0-46.0) % Plt Count 200 (150-450) k/uL Comprehensive Metabolic Panel 07/15/21 Range/Units 11:53 Sodium 134 L (137-145) mmol/L Potassium 4.1 (3.5-5.1) mmol/L Chloride 107 (98-107) mmol/L Carbon Dioxide 22 (22-30) mmol/L BUN 8 (7-17) mg/dL Creatinine 0.80 (0.52-1.04) mg/dL Glucose 100 H (74-99) mg/dL Calcium 9.5 (8.4-10.2) mg/dL AST 20 (14-36) U/L ALT 12 (4-34) U/L Alkaline Phosphatase 113 (38-126) U/L Total Protein 6.4 (6.3-8.2) g/dL Albumin 3.6 (3.5-5.0) g/dL Current Medications Generic Name Dose Route Start Last Admin Trade Name Freq PRN Reason Stop Dose Admin Acetaminophen 650 mg 07/15/21 19:19 07/16/21 04:05 Acetaminophen Tab 325 Mg Tab PO 650 mg Q6HR PRN Administration Fever and/ or Pain Aspirin 325 mg 07/16/21 09:00 Aspirin 325 Mg Tab PO DAILY RHEA Aspirin 81 mg 07/16/21 09:00 Aspirin 81 Mg PO DAILY RHEA Duloxetine HCl 60 mg 07/15/21 21:00 07/15/21 20:00 Duloxetine Hcl 60 Mg Capsule.Dr PO 60 mg HS RHEA Administration Enoxaparin Sodium 40 mg 07/16/21 09:00 Enoxaparin 40 Mg/0.4 Ml Syringe SQ DAILY RHEA Lorazepam 0.5 mg 07/15/21 20:48 Lorazepam 2 Mg/Ml Inj IV Q6HR PRN Anxiety Lorazepam 0.5 mg 07/15/21 20:51 Lorazepam 0.5 Mg Tab PO Q6H PRN Anxiety Metoprolol Tartrate 12.5 mg 07/15/21 21:00 07/15/21 21:52 Metoprolol Tartrate 12.5 Mg Tab PO Not Given BID RHEA Morphine Sulfate 2 mg 07/15/21 20:47 Morphine Sulfate 2 Mg/Ml Syringe IVP Q4HR PRN Pain/Discomfort Nicotine 1 patch 07/15/21 21:00 07/15/21 21:52 Nicotine 14mg/24hr Patch TRANSDERM 1 patch DAILY RHEA Administration Nitroglycerin 0.4 mg 07/15/21 13:04 Nitroglycerin Sl Tabs 0.4 Mg Tab SUBLINGUAL Q5M PRN Chest Pain Nitroglycerin 1 inch 07/15/21 18:00 07/16/21 05:02 Nitroglycerin Oint 1 Inch/Gm Packet TOPICAL Not Given Q6HR RHEA Intake and Output 07/15/21 07/16/21 07/16/21 22:59 06:59 14:59 Intake Total 120 Balance 120 Intake: Oral 120 Other: # Voids 2 07/15/21 11:53 07/15/21 11:53
--- NOTE | 2021-07-16 12:50 | ECHOF ---
Referral Reason:Chest pain MEASUREMENTS -------- HEIGHT: 167.6 cm WEIGHT: 77.1 kg BP: 112/70 RVIDd: 2.6 cm (< 3.3) IVSd: 1.3 cm (0.6 - 1.1) LVIDd: 3.8 cm (3.9 - 5.3) LVPWd: 1.3 cm (0.6 - 1.1) IVSs: 1.6 cm LVIDs: 2.4 cm LVPWs: 1.8 cm LA Diam: 3.1 cm (2.7 - 3.8) LAESV Index (A-L): 20.44 ml/m Ao Diam: 3.4 cm (2.0 - 3.7) AV Cusp: 2.2 cm (1.5 - 2.6) MV EXCURSION: 13.666 mm (> 18.000) MV EF SLOPE: 67 mm/s (70 - 150) EPSS: 0.8 cm MV E Inderjit: 0.71 m/s MV DecT: 289 ms MV A Inderjit: 1.00 m/s MV E/A Ratio: 0.71 AR PHT: 662 ms RAP: 5.00 mmHg RVSP: 25.57 mmHg FINDINGS -------- Sinus rhythm. This was a technically adequate study. The left ventricular size is normal. There is mild concentric left ventricular hypertrophy. Overa ll left ventricular systolic function is normal with, an EF between 60 - 65 %. The right ventricle is normal in size. Normal LA size by volume 22+/-6 ml/m2. The right atrium is normal in size. Interatrial and interventricular septum intact. There is mild aortic valve sclerosis. There is mild aortic regurgitation. The mitral valve leaflets are mildly thickened. Mild mitral annular calcification present. Mild tricuspid regurgitation present. Right ventricular systolic pressure is normal at < 35 mmHg. Trace/mild (physiologic) pulmonic regurgitation. The aortic root size is normal. Normal inferior vena cava with normal inspiratory collapse consistent with estimated right atrial pre ssure of 5 mmHg. There is no pericardial effusion. CONCLUSIONS -------- 1. The left ventricular size is normal. 2. There is mild concentric left ventricular hypertrophy. 3. Overall left ventricular systolic function is normal with, an EF between 60 - 65 %. 4. There is mild aortic valve sclerosis. 5. There is mild aortic regurgitation. 6. The mitral valve leaflets are mildly thickened. 7. Mild mitral annular calcification present. 8. Mild tricuspid regurgitation present. 9. Trace/mild (physiologic) pulmonic regurgitation. 10. There is no pericardial effusion. OPEN CLAIMS REPRESENTATIVE: Kaylin Palacio RDCS
--- NOTE | 2021-07-16 14:33 | CT ---
EXAMINATION TYPE: CT angio chest DATE OF EXAM: 07/16/2021 COMPARISON: CT 11/23/2019 HISTORY: Elevated d-dimer, chest pain CT DLP: 300 mGycm Automated exposure control for dose reduction was used. CONTRAST: CTA scan of the thorax is performed with IV Contrast, patient injected with 60 mL of Isovue 370, pulm onary embolism protocol. MIP images are created and reviewed. 3D reconstructed images are created o n an independent workstation and reviewed. FINDINGS: LUNGS: The lungs are grossly clear, there is no concerning parenchymal mass or nodule identified. Josef e minimal atelectasis or scarring suspected along the left heart border within the lingula. Emphysem atous changes are present in the upper lobes There is no pleural effusion or pneumothorax seen. The tracheobronchial tree is patent. AORTA: No additional significant abnormality is seen. MEDIASTINUM: There is satisfactory enhancement of the pulmonary artery and its branches, there is no CT evidence for pulmonary embolism. There are no greater than 1 cm hilar or mediastinal lymph nodes. No pericardial effusion is seen. Mild prominence of the pulmonary artery, consider possible pulmon mindi artery hypertension. There are some coronary artery calcifications present OTHER: There is postcholecystectomy change, prominent density urinary defects likely postoperative f inding. IMPRESSION: NO EVIDENCE OF PULMONARY EMBOLUS. THERE IS EMPHYSEMA, ADDITIONAL FINDINGS ABOVE
--- NOTE | 2021-07-16 15:59 | US ---
EXAMINATION TYPE: US venous doppler duplex LE BI DATE OF EXAM: 07/16/2021 12:52 PM COMPARISON: NONE CLINICAL HISTORY: 61-year-old female Leg swelling SIDE PERFORMED: Bilateral TECHNIQUE: The lower extremity deep venous system is examined utilizing real time linear array sonog evelina with graded compression, doppler sonography and color-flow sonography. FINDINGS: VESSELS IMAGED: Common Femoral Vein Deep Femoral Vein Greater Saphenous Vein * Femoral Vein Popliteal Vein Small Saphenous Vein * Proximal Calf Veins (* superficial vessels) Right Leg: Negative for DVT Left Leg: Negative for DVT IMPRESSION: No evidence for DVT within the bilateral lower extremities imaged from the groin to the upper calves.
[2021-07-16] MEDS: DULoxetine HCL 60 MG CAPSULE.DR PO SCH (21:08)
[2021-07-17] MEDS: SODIUM CHLORIDE 0.9% 1,000 ML IV SCH (00:03)
[2021-07-17 08:14] VITALS: BP 144/67; PULSE 84; RESP 16; TEMP 98.2
[2021-07-17] MEDS: ASPIRIN 81 MG PO SCH (08:59)
[2021-07-17] MEDS: NICOTINE 14MG/24HR PATCH TRANSDERM SCH (08:59)
[2021-07-17] MEDS: FAMOTIDINE 20 MG/2 ML VIAL IV SCH (09:00)
[2021-07-17] MEDS: ATORVASTATIN 40 MG TAB PO SCH (09:00)
[2021-07-17] MEDS: busPIRone HCl 5 MG TAB PO SCH (09:00)
[2021-07-17] MEDS: ENOXAPARIN 40 MG/0.4 ML SYRINGE SQ SCH (09:00)
[2021-07-17] MEDS ORDERED: CIPROFLOXACIN 0.3% OPHTH SOLN 5 ML BTL BOTH EYES SCH (12:00)
--- NOTE | 2021-07-17 19:31 | P.DS ---
Providers Date of admission: 07/15/21 13:09 Attending physician: Lambert Martins MD Consults: 07/15/21 13:06 Consult Physician Urgent Consulting Provider: [facility] Consult Reason/Comments: Chest pain Do you want consulting provider notified?: Yes Primary care physician: Pinky Becker Hospital Course: diagnoses: Chest pain, cardiac and pulmonary causes Anxiety after family dispute History of depression, not in active tissue Hyperlipidemia History of bilateral PE and DVT. Hospital course: 61-year-old female with history of COPD, DVT/PE, hyperlipidemia who presents emergency Department complaining of chest pain. Patient states she has quite a bit of anxiety in the morning she was upset and she was having somewhat of an anxiety attack. But patient states she's never had chest pain with her anxiety attack like this in the past. Patient denies shortness of breath. Patient has been evaluated by mold burner. Echocardiogram showed ejection fraction of 60- 65%. Also she had elevated d-dimer at 0.73. CTA of the chest is negative for pulmonary embolism. Ultrasound of the neck is negative for DVT. Patient chest pain improved on the day of discharge and she rated as 0/10. Patient also was cleared for discharge by mold burner. Regarding her anxiety it was well controlled with when necessary Xanax and BuSpar 7.5 mg 3 times a day. Patient wants to continue with BuSpar upon discharge because she thinks is helping her and she will follow-up with her PCP. Possible side effects are explained for the patient including but not limited to tardive dyskinesia and abnormal twitching and she verbalized understanding and acceptance. On the day of discharge patient was very calm. Stitches back to her baseline. She denies chest pain, no shoulder pain. No dyspnea. No change in urine or bowel habits. No fever. She agrees to go home. Problems and management plan were discussed with the patient and he verbalized understanding and acceptance Patient was found stable and can be discharged home however he needs follow-up as an outpatient. Patient was instructed to follow up with PCP Dr. oquendo within one week and patient agrees pt was instructed to follow up with in one to two weeks and she agrees to call and make appointment Physical exam Gen: patient is a AAOx3, no distress CVS: S1-S2, RRR, no murmur Lungs: B/L CTA, no wheezing Abdomen: soft, no distention, no tenderness, positive bowel sounds Extremity: no leg edema or induration Time spent more than 35 minutes Patient Condition at Discharge: Fair Plan - Discharge Summary New Discharge Prescriptions: New Nicotine 14Mg/24Hr Patch [Habitrol] 1 patch TRANSDERM DAILY #3 patch Atorvastatin [Lipitor] 40 mg PO DAILY #30 tab Acetaminophen Tab [Tylenol] 650 mg PO Q6HR PRN tab PRN Reason: Fever And/ Or Pain Ciprofloxacin Ophth Soln [Ciloxan 0.3% Ophth Soln] 1 drops BOTH EYES Q4HR 3 Days #1 unit busPIRone HCL [Buspar] 7.5 mg PO TID #90 tablet Continue DULoxetine HCL [Cymbalta] 60 mg PO HS Aspirin EC [Ecotrin Low Dose] 81 mg PO DAILY Discharge Medication List DULoxetine HCL [Cymbalta] 60 mg PO HS 04/02/18 [History] Aspirin EC [Ecotrin Low Dose] 81 mg PO DAILY 11/23/19 [History] Acetaminophen Tab [Tylenol] 650 mg PO Q6HR PRN tab 07/17/21 [Rx] Atorvastatin [Lipitor] 40 mg PO DAILY #30 tab 07/17/21 [Rx] Ciprofloxacin Ophth Soln [Ciloxan 0.3% Ophth Soln] 1 drops BOTH EYES Q4HR 3 Days #1 unit 07/17/21 [Rx] Nicotine 14Mg/24Hr Patch [Habitrol] 1 patch TRANSDERM DAILY #3 patch 07/17/21 [Rx] busPIRone HCL [Buspar] 7.5 mg PO TID #90 tablet 07/17/21 [Rx] Follow up Appointment(s)/Referral(s): Misbah Victor DO [STAFF PHYSICIAN] - 2 Weeks (OFFICE WILL CALL YOU WITH APPOINTMENT DATE AND TIME.) Pinky Becker MD [Primary Care Provider] - 1-2 days Patient Instructions/Handouts: Chest Pain (DC), How to Stop Smoking (DC) Activity/Diet/Wound Care/Special Instructions: heart healthy diet activity is restricted till you see your doctor Discharge Disposition: HOME SELF-CARE
== END 2021-07-17 13:12 | disposition home or self-care (01) ==
LOC: EC 11:13 → 6NMEDSUR 13:09
PROVIDERS: ADMIT Internal Medicine; ATTEND Internal Medicine
DX: R07.89 Other chest pain (principal); F41.1 Generalized anxiety disorder; F31.9 Bipolar disorder, unspecified; F20.9 Schizophrenia, unspecified; Z20.822 Contact with and (suspected) exposure to COVID-19; E78.5 Hyperlipidemia, unspecified; Z71.6 Tobacco abuse counseling; R79.89 Other specified abnormal findings of blood chemistry; F17.200 Nicotine dependence, unspecified, uncomplicated; Z63.8 Other specified problems related to primary support group; J44.9 Chronic obstructive pulmonary disease, unspecified; K21.9 Gastro-esophageal reflux disease without esophagitis; M50.30 Other cervical disc degeneration, unspecified cervical region; M19.90 Unspecified osteoarthritis, unspecified site; M25.562 Pain in left knee; G89.29 Other chronic pain; M25.561 Pain in right knee; M54.9 Dorsalgia, unspecified; K58.9 Irritable bowel syndrome, unspecified; Z79.82 Long term (current) use of aspirin; Z79.899 Other long term (current) drug therapy; Z88.5 Allergy status to narcotic agent; Z88.3 Allergy status to other anti-infective agents; Z88.8 Allergy status to other drugs, medicaments and biological substances; Z88.1 Allergy status to other antibiotic agents; Z96.1 Presence of intraocular lens; Z98.41 Cataract extraction status, right eye; Z98.42 Cataract extraction status, left eye; Z86.711 Personal history of pulmonary embolism; Z86.718 Personal history of other venous thrombosis and embolism; Z87.01 Personal history of pneumonia (recurrent); Z86.69 Personal history of other diseases of the nervous system and sense organs; Z90.49 Acquired absence of other specified parts of digestive tract; Z86.010 Personal history of colon polyps; Z80.1 Family history of malignant neoplasm of trachea, bronchus and lung; Z82.49 Family history of ischemic heart disease and other diseases of the circulatory system; Z82.5 Family history of asthma and other chronic lower respiratory diseases
CPT/HCPCS: 99285; 96376 ×2; 96361 ×2; 96372 ×2; 96375; 96374; 36415; 93005; 93306; 85379; 80061; 80053; 80048; 83735; 84484; 85025; 85610; 85730; 87635; 71046; 93970; 71275; G0378 ×3; S4990 ×3; J2060; J1650 ×2; Q9967

== ENCOUNTER 2023-04-22 15:16 | Inpatient (IN) | payer MEDICARE ==
[2023-04-22] MEDS ORDERED: SODIUM CHLORIDE 0.9% 500 ML 500 ML IV STA (15:20)
--- NOTE | 2023-04-22 15:27 | ED ---
General Adult HPI - General Stated complaint: stroke Time Seen by Provider: 04/22/23 15:16 Source: patient, RN notes reviewed, old records reviewed - History of Present Illness Initial comments: This a 62-year-old female presents emergency Department after she was found by her granddaughter and she was aphasic. Patient started to speak once she was in the care of EMS and she has an espresso aphasia which eventually resolved and she knew who she was where she was and the day. Patient was seen by myself and so she came into the emergency department and she was alert and oriented 3 and she had an NIH is 0 at this time was able to speak clearly home and find her words without problems. Patient denies any chest pain or difficulty breathing or shortness of breath. Patient complains of a headache which she states she gets it quite regularly. Patient mentioned to EMS that she hit her head a few days ago on some baskets. Patient denies any abdominal pain patient denies nausea vomiting or diarrhea. Patient denies any fever chills or cough. - Related Data Previous Rx's Medication Instructions Recorded Aspirin 81 mg PO DAILY #90 tab 10/31/22 Atorvastatin [Lipitor] 40 mg PO HS #90 tab 10/31/22 Acetaminophen Tab [Tylenol] 650 mg PO Q6HR PRN tab 11/15/22 Docusate [Colace] 100 mg PO BID #30 capsule 11/15/22 HYDROcodone/APAP 5-325MG [[place] 1 tab PO Q6HR PRN 3 Days #12 tab 11/15/22 5-325] polyethylene glycoL 3350 [Miralax] 17 gm PO DAILY 30 Days #30 packet 11/15/22 Allergies Allergy/AdvReac Type Severity Reaction Status Date / Time hydrogen peroxide Allergy rash and Verified 04/22/23 15:34 skin burn Latex, Natural Rubber Allergy Swelling Verified 04/22/23 15:34 metronidazole Allergy Unknown Verified 04/22/23 15:34 fentanyl AdvReac decreased Verified 04/22/23 15:34 bp isosorbide AdvReac Rapid Verified 04/22/23 15:34 Heart Rate Review of Systems ROS Statement: Those systems with pertinent positive or pertinent negative responses have been documented in the HPI. ROS Other: All systems not noted in ROS Statement are negative. Past Medical History Past Medical History: Chest Pain / Angina, COPD, Deep Vein Thrombosis (DVT), Eye Disorder, GERD/Reflux, Hyperlipidemia, Pneumonia, Pulmonary Embolus (PE), Syncope Additional Past Medical History / Comment(s): Chronic back and bilateral knee pain, DDD, cervical/back "nerve damage", "low BP", DVT right thigh, bilateral PEs in 2010 and 2015, migraines, osteoporosis, IBS, vertigo at times, R wrist 2 cysts, pt states since cataract surgery her vision has declined. History of Any Multi-Drug Resistant Organisms: None Reported Past Surgical History: Appendectomy, Cholecystectomy, Heart Catheterization Additional Past Surgical History / Comment(s): EGD/COLONOSCOPY/POLYPECTOMY- BENIGN, cardiac cath 06/10/16-normal, back/bilateral knee injections. epidural steroid inj -back, bilateral cataract removals/lens implants. Past Anesthesia/Blood Transfusion Reactions: No Reported Reaction Additional Past Anesthesia/Blood Transfusion Reaction / Comment(s): Pt has clausterphobia. Past Psychological History: Bipolar, Depression, Schizophrenia Smoking Status: Current every day smoker Past Alcohol Use History: None Reported Past Drug Use History: Marijuana - Past Family History Mother Family Medical History: Cancer, COPD, Hypertension Additional Family Medical History / Comment(s): Mother of LUNG CANCER at the age of 74yrs. Father Family Medical History: CVA/TIA, Hypertension Additional Family Medical History / Comment(s): Father had 2 CVAs and from the second one at the age of 52yrs. He was an alcoholic. General Exam - General Exam Comments Initial Comments: GENERAL: Patient is well-developed and well-nourished. Patient is nontoxic and well- hydrated and is in mild distress. ENT: Neck is soft and supple. No significant lymphadenopathy is noted. Oropharynx is clear. Moist mucous membranes. Neck has full range of motion without eliciting any pain. EYES: The sclera were anicteric and conjunctiva were pink and moist. Extraocular movements were intact and pupils were equal round and reactive to light. Eyelids were unremarkable. PULMONARY: Unlabored respirations. Good breath sounds bilaterally. No audible rales rhonchi or wheezing was noted. CARDIOVASCULAR: There is a regular rate and rhythm without any murmurs gallops or rubs. ABDOMEN: Soft and nontender with normal bowel sounds. SKIN: Skin is clear with no lesions or rashes and otherwise unremarkable. NEUROLOGIC: Patient is alert and oriented x3. Cranial nerves II through XII are grossly intact. Motor and sensory are also intact. Normal speech, volume and content. Symmetrical smile. Patient's NIH is 0 MUSCULOSKELETAL: Normal extremities with adequate strength and full range of motion. LYMPHATICS: No significant lymphadenopathy is noted PSYCHIATRIC: Normal psychiatric evaluation. Course Vital Signs 04/22/23 04/22/23 04/22/23 15:21 16:18 19:05 Temperature 98.2 F Pulse Rate 98 89 104 H Respiratory 18 18 Rate Blood Pressure 126/66 128/93 133/69 O2 Sat by Pulse 92 L 97 96 Oximetry Medical Decision Making - Medical Decision Making EKG was interpreted by myself shows a sinus tachycardia at 103 bpm ID interval is 148 QRSs 86 QT interval 329 QTC is 388. Was pt. sent in by a medical professional or institution ([facility], SALES FINANCIAL ANALYST, urgent care, hospital, or care home...) When possible be specific @ -[No] Did you speak to anyone other than the patient for history (EMS, parent, family, police, friend...)? What history was obtained from this source @ -EMS gave the history and route any improvement of symptoms Did you review nursing and triage notes (agree or disagree)? Why? @ -[I reviewed and agree with nursing and triage notes] Were old charts reviewed (outside hosp., previous admission, EMS record, old EKG, old radiological studies, urgent care reports/EKG's, care home records)? Report findings @ -I reviewed prior charts prior laboratory on this patient Differential Diagnosis (chest pain, altered mental status, abdominal pain women, abdominal pain men, vaginal bleeding, weakness, fever, dyspnea, syncope, headache, dizziness, GI bleed, back pain, seizure, CVA, palpatations, mental health, musculoskeletal)? @ -Differential CVA Ischemic stroke, hemorrhagic stroke, brain tumor, atypical migraine, Wernicke's encephalopathy, seizure, multiple sclerosis, meningitis, encephalitis, hypoglycemia, Guillain-Monzon, electrolytes disturbance, myasthenia gravis.... This is not meant to be an all-inclusive list EKG interpreted by me (3pts min.). @ -[As above] X-rays interpreted by me (1pt min.). @ -Chest x-ray showed no acute abnormality. CT interpreted by me (1pt min.). @ -CT of the brain showed no acute abnormality. U/S interpreted by me (1pt. min.). @ -[None done] What testing was considered but not performed or refused? (CT, X-rays, U/S, labs)? Why? @ -[None] What meds were considered but not given or refused? Why? @ -[None] Did you discuss the management of the patient with other professionals (professionals i.e. , PA, SALES FINANCIAL ANALYST, lab, RT, psych nurse, addiction social worker, mattress maker, teacher, risk control officer, family independence case manager)? Give summary @ -I spoke with Dr. Baker he agreed to admit the patient Was smoking cessation discussed for >3mins.? @ -[No] Was critical care preformed (if so, how long)? @ -[No] Were there social determinants of health that impacted care today? How? (Homelessness, low income, unemployed, alcoholism, drug addiction, transportation, low edu. Level, literacy, decrease access to med. care, half-way, rehab)? @ -[No] Was there de-escalation of care discussed even if they declined (Discuss DNR or withdrawal of care, Hospice)? DNR status @ -[No] What co-morbidities impacted this encounter? (DM, HTN, Smoking, COPD, CAD, Cancer, CVA, ARF, Chemo, Hep., AIDS, mental health diagnosis, sleep apnea, morbid obesity)? @ -[None] Was patient admitted / discharged? Hospital course, mention meds given and route, prescriptions, significant lab abnormalities, going to OR and other pertinent info. @ -Patient came to the hospital and her symptoms are completely resolved by the time I interviewed her initially. Patient's symptoms remained resolved. Patient stated and hypertension 0 throughout her ED course but I spoke with Dr. Baker he wanted the patient admitted admitted the patient I consult neurology Undiagnosed new problem with uncertain prognosis? @ -[No] Drug Therapy requiring intensive monitoring for toxicity (Heparin, Nitro, Insulin, Cardizem)? @ -[No] Were any procedures done? @ -[No] Diagnosis/symptom? @ -TIA Acute, or Chronic, or Acute on Chronic? @ -Acute Uncomplicated (without systemic symptoms) or Complicated (systemic symptoms)? @ -Complicated Side effects of treatment? @ -[No] Exacerbation, Progression, or Severe Exacerbation? @ -[No] Poses a threat to life or bodily function? How? (Chest pain, [place], [place], pneumonia, PE, COPD, DKA, ARF, appy, cholecystitis, CVA, Diverticulitis, Homicidal, Suicidal, threat to staff... and all critical care pts) @ -Yes this could lead to a stroke and significant paralysis or - Lab Data Result diagrams: 04/22/23 16:01 04/22/23 16:01 Lab Results 04/22/23 04/22/23 04/22/23 Range/Units 16:01 16:01 16:01 WBC 5.3 (3.8-10.6) k/uL RBC 4.55 (3.80-5.40) m/uL Hgb 13.1 (11.4-16.0) gm/dL Hct 39.3 (34.0-46.0) % MCV 86.4 (80.0-100.0) fL MCH 28.7 (25.0-35.0) pg MCHC 33.3 (31.0-37.0) g/dL RDW 14.6 (11.5-15.5) % Plt Count 191 (150-450) k/uL MPV 9.1 Neutrophils % 77 % Lymphocytes % 17 % Monocytes % 2 % Eosinophils % 2 % Basophils % 0 % Neutrophils # 4.1 (1.3-7.7) k/uL Lymphocytes # 0.9 L (1.0-4.8) k/uL Monocytes # 0.1 (0-1.0) k/uL Eosinophils # 0.1 (0-0.7) k/uL Basophils # 0.0 (0-0.2) k/uL PT 9.5 (9.0-12.0) sec INR 0.9 (<1.2) APTT 20.7 L (22.0-30.0) sec Sodium 133 L (137-145) mmol/L Potassium 4.7 (3.5-5.1) mmol/L Chloride 106 (98-107) mmol/L Carbon Dioxide 23 (22-30) mmol/L Anion Gap 4 mmol/L BUN 14 (7-17) mg/dL Creatinine 0.83 (0.52-1.04) mg/dL Est GFR (CKD-EPI)AfAm 88 (>60 ml/min/1.73 sqM) Est GFR (CKD-EPI)NonAf 76 (>60 ml/min/1.73 sqM) Glucose 116 H (74-99) mg/dL Calcium 9.0 (8.4-10.2) mg/dL Total Bilirubin 0.3 (0.2-1.3) mg/dL AST 22 (14-36) U/L ALT 19 (4-34) U/L Alkaline Phosphatase 112 (38-126) U/L Creatine Kinase 91 (30-135) U/L Troponin I (0.000-0.034) ng/mL Total Protein 6.5 (6.3-8.2) g/dL Albumin 3.8 (3.5-5.0) g/dL 04/22/23 Range/Units 16:01 WBC (3.8-10.6) k/uL RBC (3.80-5.40) m/uL Hgb (11.4-16.0) gm/dL Hct (34.0-46.0) % MCV (80.0-100.0) fL MCH (25.0-35.0) pg MCHC (31.0-37.0) g/dL RDW (11.5-15.5) % Plt Count (150-450) k/uL MPV Neutrophils % % Lymphocytes % % Monocytes % % Eosinophils % % Basophils % % Neutrophils # (1.3-7.7) k/uL Lymphocytes # (1.0-4.8) k/uL Monocytes # (0-1.0) k/uL Eosinophils # (0-0.7) k/uL Basophils # (0-0.2) k/uL PT (9.0-12.0) sec INR (<1.2) APTT (22.0-30.0) sec Sodium (137-145) mmol/L Potassium (3.5-5.1) mmol/L Chloride (98-107) mmol/L Carbon Dioxide (22-30) mmol/L Anion Gap mmol/L BUN (7-17) mg/dL Creatinine (0.52-1.04) mg/dL Est GFR (CKD-EPI)AfAm (>60 ml/min/1.73 sqM) Est GFR (CKD-EPI)NonAf (>60 ml/min/1.73 sqM) Glucose (74-99) mg/dL Calcium (8.4-10.2) mg/dL Total Bilirubin (0.2-1.3) mg/dL AST (14-36) U/L ALT (4-34) U/L Alkaline Phosphatase (38-126) U/L Creatine Kinase (30-135) U/L Troponin I <0.012 (0.000-0.034) ng/mL Total Protein (6.3-8.2) g/dL Albumin (3.5-5.0) g/dL Disposition Clinical Impression: Transient cerebral ischemia Disposition: ADMITTED IP TO THIS HOSP Referrals: None,Stated [REFERRING] - 1-2 days Time of Disposition: 19:54
[2023-04-22] MEDS ORDERED: LORazepam 2 MG/ML INJ IV STA (16:04)
--- NOTE | 2023-04-22 16:12 | XR ---
EXAMINATION TYPE: XR chest 2V DATE OF EXAM: 04/22/2023 4:00 PM COMPARISON: Chest radiographs from 10/30/2022 TECHNIQUE: XR chest 2V Frontal and lateral views of the chest. CLINICAL INDICATION:Female, 62 years old with history of altered mental status; FINDINGS: Lungs/Pleura: There is no evidence of pleural effusion, focal consolidation, or pneumothorax. Pulmonary vascularity: Unremarkable. Heart/mediastinum: Cardiomediastinal silhouette is unremarkable. Musculoskeletal: No acute osseous pathology. IMPRESSION: No acute cardiopulmonary disease/process.
[2023-04-22 16:19] LABS: Basophils % (A) 0 %; Eosinophils # (A) 0.1 k/uL (0-0.7); Eosinophils % (A) 2 %; HCT 39.3 % (34.0-46.0); HGB 13.1 gm/dL (11.4-16.0); Lymphocytes # (A) 0.9 k/uL (1.0-4.8); Lymphocytes % (A) 17 %; MCH 28.7 pg (25.0-35.0); MCHC 33.3 g/dL (31.0-37.0); MCV 86.4 fL (80.0-100.0); Mean Platelet Volume 9.1; Monocytes # (A) 0.1 k/uL (0-1.0); Monocytes % (A) 2 %; Neutrophils # (A) 4.1 k/uL (1.3-7.7); Neutrophils % (A) 77 %; Platelet Count 191 k/uL (150-450); RBC 4.55 m/uL (3.80-5.40); RDW 14.6 % (11.5-15.5); WBC 5.3 k/uL (3.8-10.6)
[2023-04-22 16:32] LABS: ALT 19 U/L (4-34); AST 22 U/L (14-36); African American GFR (CKD) 88 (>60 ml/min/1.73 sqM); Albumin 3.8 g/dL (3.5-5.0); Alkaline Phosphatase 112 U/L (38-126); Anion Gap 4 mmol/L; Blood Urea Nitrogen 14 mg/dL (7-17); Carbon Dioxide 23 mmol/L (22-30); Chloride 106 mmol/L (98-107); Creatine Kinase 91 U/L (30-135); Glucose 116 mg/dL (74-99); Non-African American GFR(CKD) 76 (>60 ml/min/1.73 sqM); Potassium 4.7 mmol/L (3.5-5.1); Sodium 133 mmol/L (137-145); Total Bilirubin 0.3 mg/dL (0.2-1.3); Total Protein 6.5 g/dL (6.3-8.2)
--- NOTE | 2023-04-22 16:34 | CT ---
EXAMINATION TYPE: CT brain wo con CT DLP: 1157.4 mGycm, Automated exposure control for dose reduction was used. DATE OF EXAM: 04/22/2023 4:26 PM COMPARISON: 05/23/2021 CLINICAL INDICATION:Female, 62 years old with history of Neuro deficit, acute, stroke suspected, Neur o deficit, acute, stroke suspected TECHNIQUE: Brain: Axial CT images of the brain were obtained with coronal and sagittal reformats created and rev iewed. Contrast used: None. Oral contrast used: None. FINDINGS: Brain: Extra-axial spaces: No abnormal extra-axial fluid collections. Ventricular system: Within normal limits Cerebral parenchyma: Right choroidal fissure cyst. No acute intraparenchymal hemorrhage or mass effec t. The garcia-white junction is well differentiated. Cerebellum: Unremarkable. Mass effect: No evidence of midline shift. Intracranial vasculature: Atherosclerotic calcifications of the intracranial vessels. Soft tissues: Normal. Calvarium/osseous structures: No depressed skull fracture. Paranasal sinuses and mastoid air cells: Mild scattered paranasal sinus disease. Visualized orbits: Bilateral aphakia IMPRESSION: No acute intracranial process.
[2023-04-22 16:43] LABS: INR 0.9 (<1.2); Partial Thromboplastin Time 20.7 sec (22.0-30.0)
[2023-04-22 16:44] LABS: Prothrombin Time 9.5 sec (9.0-12.0)
[2023-04-22] MEDS ORDERED: ASPIRIN 325 MG TAB PO STA (19:54)
[2023-04-23] MEDS: ASPIRIN 325 MG TAB PO SCH (08:21)
--- NOTE | 2023-04-23 09:46 | P.CNNES ---
History of Present Illness Consult date: 04/23/23 Requesting physician: Enoch Lyon Reason for Consult: TIA History of Present Illness: Patient is a 62-year-old right-handed female came to the hospital by ambulance yesterday at 3:16 PM for possible seizure versus TIA. Patient states that yesterday she was not feeling well, she was resting on the couch. She went to sleep and the next thing she woke up to the EMT personnel trying to wake her up. Patient does not remember any details. Patient states that her granddaughter told her that she was having a seizure. Patient states she has been having dizzy spells almost daily for last 2 months. It can happen whenever although can happen when she is getting up, or doing dishes, when it comes all of a sudden and last for about 1 hour. As per EMS flow sheet, when they arrived, patient was alert and oriented 1, with GCS of 12. Family found the patient laying on the couch unable to speak. Family was unable to give any medical history. Patient's ABCs were fine. Patient was alert to self and response to verbal stimuli. Family mentioned that patient was seen normal approximately 10 minutes prior to calling EMS. Granddaughter on the scene stated that it looked like her grandma had been shaking. Patient became more alert in route to the hospital. However she was unable to answer questions appropriately. Patient said "I fell into the window a few baskets ago". Patient has expressive aphasia. Patient was not able to say where she is or what year it is. There was no facial droop or arm drift. Inappropriate words or speech was noted. Patient's blood sugar was 128. Blood pressure 142/75, pulse rate 110, respiration 12. Blood test shows normal CBC, PT/PTT, sodium 133 potassium 4.7, normal renal and hepatic panel, troponin negative, CK normal. Chest x-ray is normal. EKG shows ectopic atrial tachycardia. Nonspecific T-wave abnormality. CT head revealed no acute intracranial process. I personally reviewed CT had agree with the findings. Visualized paranasal sinuses are clear. Patient had a prior EEG on 01/03/2017, which was normal. It was performed for syncopal episode. Patient denies any history of seizures, any history of strokes or TIA. Patient denies diabetes or hypertension. Home medications include aspirin 81 mg daily Lipitor 40 mg, Cymbalta 30 mg and omeprazole 40 mg. patient states that she ran out of her aspirin 9 days ago, and ran out of her Lipitor and Cymbalta over a month ago. She cannot afford medications because of expense issues. Patient does smoke 1 pack per day since age 14, denies any alcohol or drug use, uses marijuana sometimes. Review of Systems Constitutional: Reports fatigue, Reports weight gain, Denies chills, Denies fever Eyes: right blurred vision (Going on for 1 year), denies diplopia, denies pain Ears: deny: decreased hearing, ear discharge Ears, nose, mouth and throat: Denies headache, Denies sore throat Cardiovascular: Denies chest pain, Denies shortness of breath Respiratory: Reports cough, Denies excessive sputum Gastrointestinal: Reports vomiting (Yesterday he was sick to stomach, threw up once), Denies abdominal pain, Denies constipation, Denies diarrhea, Denies nausea Genitourinary: Denies dysuria, Denies hematuria Musculoskeletal: Denies low back pain, Denies myalgias, Denies neck pain Integumentary: Denies pruritus, Denies rash Neurological: Reports as per HPI Psychiatric: Reports anxiety, Reports depression Endocrine: Reports fatigue, Reports weight change Hematologic/Lymphatic: Denies easy bleeding, Denies easy bruising Past Medical History Past Medical History: Chest Pain / Angina, COPD, Deep Vein Thrombosis (DVT), Eye Disorder, GERD/Reflux, Hyperlipidemia, Pneumonia, Pulmonary Embolus (PE), Syncope Additional Past Medical History / Comment(s): Chronic back and bilateral knee pain, DDD, cervical/back "nerve damage", "low BP", DVT right thigh, bilateral PEs in 2010 and 2014, migraines, osteoporosis, IBS, vertigo at times, R wrist 2 cysts, pt states since cataract surgery her vision has declined. History of Any Multi-Drug Resistant Organisms: None Reported Past Surgical History: Appendectomy, Cholecystectomy, Heart Catheterization Additional Past Surgical History / Comment(s): EGD/COLONOSCOPY/POLYPECTOMY- BENIGN, cardiac cath 06/10/16-normal, back/bilateral knee injections. epidural steroid inj -back, bilateral cataract removals/lens implants. Past Anesthesia/Blood Transfusion Reactions: No Reported Reaction Additional Past Anesthesia/Blood Transfusion Reaction / Comment(s): Pt has clausterphobia. Past Psychological History: Bipolar, Depression, Schizophrenia Additional Psychological History / Comment(s): Mood disorder. She has a cane she uses prn. She has a L knee brace she uses prn. She no longer drives d/t declining vision. She either walks or takes the bus to [employer]. Smoking Status: Current every day smoker Past Alcohol Use History: None Reported Additional Past Alcohol Use History / Comment(s): STARTED SMOKING AT AGE 14(1973) currently smokes 1 ppd. Past Drug Use History: Marijuana Additional Drug Use History / Comment(s): Pt states she smokes marijuana daily, 1-2 joints, to stimulate her appetite or to help her sleep. - Past Family History Mother Family Medical History: Cancer, COPD, Hypertension Additional Family Medical History / Comment(s): Mother of LUNG CANCER at the age of 74yrs. Father Family Medical History: CVA/TIA, Hypertension Additional Family Medical History / Comment(s): Father had 2 CVAs and from the second one at the age of 52yrs. He was an alcoholic. Medications and Allergies Home Medications Medication Instructions Recorded Confirmed Type Atorvastatin [Lipitor] 40 mg PO HS #90 tab 10/31/22 04/22/23 Rx DULoxetine HCL [Cymbalta] 30 mg PO HS 04/22/23 04/22/23 History Omeprazole 40 mg PO HS 04/22/23 04/22/23 History Allergies Allergy/AdvReac Type Severity Reaction Status Date / Time hydrogen peroxide Allergy rash and Verified 04/22/23 21:35 skin burn Latex, Natural Rubber Allergy Swelling Verified 04/22/23 21:35 metronidazole Allergy Unknown Verified 04/22/23 21:35 fentanyl AdvReac decreased Verified 04/22/23 21:35 bp isosorbide AdvReac Rapid Verified 04/22/23 21:35 Heart Rate Physical Examination - Vital Signs Vital Signs: Vital Signs Temp Pulse Pulse Pulse Resp BP BP 04/23/23 08:20 98.8 F 78 16 108/64 04/23/23 04:00 98.0 F 86 18 122/71 04/23/23 01:57 98 18 04/23/23 00:00 98 18 131/79 04/22/23 23:32 16 04/22/23 22:41 88 16 127/72 04/22/23 20:00 106 H 18 110/57 04/22/23 19:05 104 H 18 133/69 04/22/23 16:18 89 18 128/93 04/22/23 15:21 98.2 F 98 126/66 Pulse Ox 04/23/23 08:20 94 L 04/23/23 04:00 95 04/23/23 01:57 04/23/23 00:00 97 04/22/23 23:32 04/22/23 22:41 92 L 04/22/23 20:00 96 04/22/23 19:05 96 04/22/23 16:18 97 04/22/23 15:21 92 L Intake and Output 04/22/23 04/23/23 04/23/23 22:59 06:59 14:59 Other: Voiding Method Incontinent # Voids 2 Weight 81.647 kg Patient is a late middle aged female, in no acute distress. Patient is alert awake oriented to time place and person. Speech and language f unctions are normal. Patient can name and repeat very well. No aphasia or dysarthria. Attention, concentration and fund of knowledge is adequate. On cranial nerve examination, pupils are equal, round and reacting to light, visual dangelo are full on confrontation, with no neglect on double simultaneous stimulation. Extraocular muscles are intact with no nystagmus. Face is symmetric, tongue protrudes to the midline. Palatal elevation and sensation normal, hearing and shoulder shrug normal, facial sensation normal. On muscle strength testing, there is no pronator drift and the strength is normal in arms and legs distally and proximally. Deep tendon reflexes are symmetric 1+ to 2 in the upper limbs at biceps and brachioradialis, 1+ at the knees, trace ankles and plantars downgoing bilaterally. Sensory to touch is equal with no neglect on double simultaneous stimulation. Cerebellar function showed no ataxia for [id number] testing. No dysdiadochokinesia. No ataxia for [id number] testing on either side. Tone and bulk of muscles normal. Gait deferred.. On general examination, there is no carotid bruit or murmur, S1-S2 audible. Chest is clear on consultation. Abdomen is soft nontender. No organomegaly, bowel sounds present. Peripheral pulses are present. No edema. Results - Laboratory Findings CBC and BMP: 04/22/23 16:01 04/22/23 16:01 Abnormal Lab Findings: Abnormal Labs 04/22/23 04/22/23 04/22/23 16:01 16:01 16:01 Lymphocytes # 0.9 L APTT 20.7 L Sodium 133 L Glucose 116 H Assessment and Plan Assessment: * Possible TIA versus seizure. Patient has ran out of her aspirin 9 days ago, and Lipitor for last 30+ days. She may had a TIA. * Anxiety, depression * Tobacco abuse Plan: * CT head revealed no acute process. Her current NIH stroke scale is 0. All symptoms have resolved. * Carotid Doppler to rule out stenosis * Event appears more like TIA. However we will check EEG to rule out epileptiform activity. Hold off on antiepileptic medication, unless EEG shows clear epileptiform activity. * Hemoglobin A1c 5.6 on 10/30/2022 * Lipid panel with cholesterol 214, LDL 146, HDL 48 and triglycerides 92. Resume Lipitor 40 mg daily. * 2-D echo from 10/31/2022 showed mild concentric left-ventricular hypertrophy with preserved systolic function with EF 60-65%. Mildly increased posterior wall thickness. Left atrial size is normal. * Resume aspirin 325 mg for 30 days, then decrease to 81 mg daily indefinitely. * Telemetric monitoring. * Neurology will follow. Thank you for the consult.
--- NOTE | 2023-04-23 10:47 | US ---
EXAMINATION TYPE: US carotid duplex BILAT DATE OF EXAM: 04/23/2023 COMPARISON: NONE CLINICAL INDICATION: Female, 62 years old with history of TIA; Pt states syncope with collapse TECHNIQUE: Carotid duplex ultrasound examination. Indirect Doppler criteria was utilized. FINDINGS: EXAM MEASUREMENTS: RIGHT: Peak Systolic Velocity (PSV) cm/sec ----- Right CCA: 90.0 ----- Right ICA: 91.8 ----- Right ECA: 81.2 ICA/CCA ratio: 1.0 RIGHT: End Diastole cm/sec ----- Right CCA: 25.2 ----- Right ICA: 33.5 ----- Right ECA: 5.4 LEFT: Peak Systolic Velocity (PSV) cm/sec ----- Left CCA: 61.4 ----- Left ICA: 175.2 ----- Left ECA: 122.6 ICA/CCA ratio: 2.9 LEFT: End Diastole cm/sec ----- Left CCA: 17.5 ----- Left ICA: 33.3 ----- Left ECA: 6.3 VERTEBRALS (direction of flow): Right Vertebral: Antegrade Left Vertebral: Antegrade Rhythm: Normal ASSISTANT DESIGNER NOTES: Slightly elevated velocities left ICA with elevated ratio left side IMPRESSION: 1. 50-69% stenosis of the left carotid bifurcation by peak systolic velocity. 2. Less than 50% stenosis of the right carotid bifurcation. Criteria for Assigning % of Stenosis / Diameter reduction (Estimation based on the indirect measurements of the internal carotid artery velocities (ICA PSV). 1. Normal (no stenosis)=ICA PSV < 125 cm/s: ratio < 2.0: ICA EDV<40 cm/s. 2. Less than 50% stenosis=ICA PSV < 125 cm/s: ratio < 2.0: ICA EDV<40 cm/s. 3. 50 to 69% stenosis=ICA PSV of 125 to 230 cm/s: ration 2.0 ? 4.0: ICA EDV 40-100 cm/s. 4. Greater than 70% stenosis to near occlusion= ICA PSV > 230 cm/s: ratio > 4.0: ICA EDV > 100 cm/s. 5. Near occlusion= ICA PSV velocities may be low or undetectable: variable ratio and ICA EDV. 6. Total occlusion=unable to detect flow.
[2023-04-23 11:15] LABS: Chol/HDL Ratio 4.63 Ratio; LDL Cholesterol,Calculated 149.4 mg/dL (0.0-131.0)
[2023-04-23] MEDS: ACETAMINOPHEN TAB 325 MG TAB PO PRN (16:46)
[2023-04-23] MEDS ORDERED: HYDROcodone/APAP 5-325MG 1 EACH TAB PO PRN (20:11)
[2023-04-23] MEDS: ATORVASTATIN 40 MG TAB PO SCH (20:46)
[2023-04-23] MEDS: DULoxetine HCL 30 MG CAPSULE.DR PO SCH (20:46)
--- NOTE | 2023-04-23 21:54 | EEG ---
ELECTROENCEPHALOGRAM REPORT PREAMBLE: This is a 62-year-old female with seizure versus TIA. EEG FINDINGS: This is a 21-channel digital EEG recorded with video component, utilizing 10/20 international system with referential and bipolar montages. Background consists of well developed, well regulated moderate voltage activity in 9 hertz alpha. Background is posterior dominant and reactive to eye opening and closing. Photic driving response was seen with some flash frequencies. Drowsiness was seen with appearance of bilaterally symmetric theta frequency rhythm, deeper stages of sleep were not seen. No focal or generalized epileptiform activity was seen. EKG channel showed no obvious arrhythmia. IMPRESSION: This is a normal awake and drowsy EEG. No focal, lateralized or epileptiform activity was seen. MMODL / IJN: [id number] /
[2023-04-24] MEDS: ASPIRIN 325 MG TAB PO SCH (08:45)
[2023-04-24] MEDS: ACETAMINOPHEN TAB 325 MG TAB PO PRN ×2 (08:45→16:46)
--- NOTE | 2023-04-24 10:23 | HP ---
HISTORY AND PHYSICAL SUBJECTIVE: She came into the hospital due to TIA symptomatology for possible seizure versus TIA. Neurology has been working her up. almost daily for 2 months. Can not do any dishes. Has a heart murmur. CT scans reviewed. No acute findings on CT scans. REVIEW OF SYSTEMS: A 14-point review of systems negative except for fatigue, weight gain, blurred vision, and head stiffness. PAST MEDICAL HISTORY: Chest pain, angina, DVT, GERD, dyslipidemia, pneumonia, PE, syncope. SOCIAL HISTORY: Smokes 1 pack a day. No alcohol. FAMILY HISTORY: Mother hypertension with COPD, cancer. Father, CVA, TIA, hypertension. HOME MEDICINES: 1. Lipitor 40 daily. 2. Duloxetine 30 daily. 3. Omeprazole 40 daily. 4. Aspirin 81 daily. 5. Cymbalta 30 daily. PHYSICAL EXAMINATION: VITAL SIGNS: O2 of 92% to 95% on 2 L. Blood pressure is 126 over 60s to 70s. Pulse is 80s to 104. CARDIOVASCULAR: S1, S2. LUNGS: Scattered wheeze x4. PSYCH: Fair mood and affect. NEUROLOGIC: Alert and oriented x3. ASSESSMENT: Transient ischemic attack versus seizures, chronic obstructive pulmonary disease exacerbation, tracheobronchitis, anxiety, depression, nicotine addiction, dehydration, possible left ventricular hypertrophy, prediabetes, rule out seizures. Wait for Neurology recommendations. Rehydrate, with dehydration. Please see further orders. MMODL / IJN: [id number] /
--- NOTE | 2023-04-24 10:31 | CT ---
EXAMINATION TYPE: CT chest wo con DATE OF EXAM: 04/24/2023 COMPARISON: 10/30/2022 HISTORY: dyspnea CT DLP: 320.[address] of the chest was performed with lung and mediastinal window settings submitted. The la ck of contrast limits evaluation of the vascular, mediastinal and parenchymal structures including th e upper abdomen. LUNGS: Hyperinflation compatible with COPD. Right apical parenchymal scarring is unchanged. There are a few scattered emphysematous bulla noted. There is mild peripheral groundglass infiltrate within th e right middle lobe as well as the lingula which could reflect acute inflammatory process. Mild basil ar parenchymal scarring noted. No focal consolidation identified. MEDIASTINUM/LINDA: Thoracic aorta is of normal caliber with limited evaluation given lack of contrast . The heart is not enlarged. No evidence for mediastinal mass. No lymph nodes greater than 1cm. UPPER ABDOMEN: No significant abnormality is seen. OTHER: No significant other abnormality. IMPRESSION: 1. There is mild peripheral groundglass infiltrate within the right middle lobe as well as the ling gege which could reflect acute inflammatory process. 2. COPD.
[2023-04-24] MEDS: SODIUM CHLORIDE 0.9% 1,000 ML IV SCH ×2 (10:41→22:59)
[2023-04-24] MEDS: IPRATROPIUM-ALBUTEROL 3 ML NEB INHALATION SCH ×3 (11:54→21:25)
[2023-04-24] MEDS: methylPREDNISolone SOD SUCCI 40 MG/ML 1 ML VIAL IV SCH ×2 (16:45→22:58)
--- NOTE | 2023-04-24 16:59 | P.PN ---
Subjective Progress Note Date: 04/24/23 Patient was seen for a follow-up. Patient is laying comfortably in the bed. Patient says that she has some headache and feels tired. No other focal symptoms. Objective - Vital Signs Vital signs: Vital Signs Temp 97.3 F L 04/24/23 12:00 Pulse 72 04/24/23 15:39 Resp 16 04/24/23 15:39 BP 138/63 04/24/23 12:00 Pulse Ox 93 L 04/24/23 12:25 FiO2 Intake & Output 04/23/23 04/24/23 04/24/23 18:59 06:59 18:59 Intake Total 720 180 Balance 720 180 Intake: Oral 720 180 Other: Voiding Method Incontinent Incontinent Incontinent # Voids 2 # Bowel Movements 0 - Exam Normal. - Labs CBC & Chem 7: 04/22/23 16:01 04/22/23 16:01 Labs: Abnormal Lab Results - Last 24 Hours (Table) 04/24/23 Range/Units 10:13 D-Dimer 1.33 H (<0.60) mg/L FEU Assessment and Plan Assessment: * Possible TIA versus seizure. Patient has ran out of her aspirin 9 days ago, and Lipitor for last 30+ days. She may had a TIA. * Anxiety, depression * Tobacco abuse Plan: * CT head revealed no acute process. Her current NIH stroke scale is 0. All symptoms have resolved. * Carotid Doppler revealed 50-69% stenosis left carotid bifurcation. Less than 50% stenosis right carotid bifurcation. Antegrade flow in both vertebral arteries. Recommend aggressive medical management. Recommend follow-up carotid Doppler in 1 year, earlier if any breakthrough symptoms. * EEG was normal. No epileptiform activity seen. * Hemoglobin A1c 5.6 on 10/30/2022 * Lipid panel with cholesterol 214, LDL 146, HDL 48 and triglycerides 92. Resume Lipitor 40 mg daily. * 2-D echo from 10/31/2022 showed mild concentric left-ventricular hypertrophy with preserved systolic function with EF 60-65%. Mildly increased posterior wall thickness. Left atrial size is normal. * Resume aspirin 325 mg for 30 days, then decrease to 81 mg daily indefinitely. * Telemetric monitoring showing sinus rhythm between 50-60. No other arrhythmia. * Neurologically clear for discharge.
[2023-04-24] MEDS: DULoxetine HCL 30 MG CAPSULE.DR PO SCH (19:48)
[2023-04-24] MEDS: ATORVASTATIN 40 MG TAB PO SCH (19:48)
[2023-04-24] MEDS: BUDESONIDE 0.5 MG/2 ML NEBU INHALATION SCH (21:25)
[2023-04-25] MEDS: IPRATROPIUM-ALBUTEROL 3 ML NEB INHALATION SCH ×3 (08:23→15:39)
[2023-04-25] MEDS: BUDESONIDE 0.5 MG/2 ML NEBU INHALATION SCH (08:23)
[2023-04-25] MEDS: ASPIRIN 325 MG TAB PO SCH (08:59)
[2023-04-25] MEDS: methylPREDNISolone SOD SUCCI 40 MG/ML 1 ML VIAL IV SCH ×2 (08:59→15:40)
[2023-04-25] MEDS: SODIUM CHLORIDE 0.9% 1,000 ML IV SCH (12:42)
[2023-04-25 15:40] VITALS: BP 143/66; RESP 18; TEMP 98.7
[2023-04-25 15:49] VITALS: PULSE 80
--- NOTE | 2023-04-25 16:12 | DS ---
DISCHARGE SUMMARY MEDICATIONS: 1. Symbicort 160/4.5 two puffs b.i.d. 2. Medrol Dosepak, dispense one. 3. Omeprazole 40 mg daily. 4. Lipitor. 5. Atorvastatin 40 mg daily. 6. Fluoxetine 30 mg daily. CONDITION: Stable. PROGNOSIS: Guarded. Ambulate as tolerated. HOSPITAL COURSE: The patient came in with dehydration and COPD exacerbation. CAT scan shows COPD. She is rehydrated. She had prerenal azotemia. Neurologically, Neurology cleared her for discharge. Possible TIA, suspect mostly dehydration and COPD exacerbation. The patient was stabilized by Neurology. Medicines were reviewed and she will follow up as outpatient in a week. MMODL / IJN: [id number] /
[2023-04-25] MEDS ORDERED: SYMBICORT 160-4.5 MCG INHALER INHALATION SCH (20:00)
--- NOTE | 2023-04-25 21:06 | PN ---
PROGRESS NOTE DATE OF SERVICE: 04/24/2023 SUBJECTIVE: This is a 62-year-old white female. She is improving with her breathing. Discussed CAT scan report whether her shortness of breath. She will continue with current treatment. She appears to be better and less dizzy since we started her COPD medications. OBJECTIVE: VITAL SIGNS: Pulse is 107, blood pressure 130s/70s, temp 98.1, respiratory rate 16 to 18, blood pressure is 130s over 60s to 70s. LUNGS: Decreased breath sounds x4. CARDIOVASCULAR: S1, S2. ASSESSMENT: COPD exacerbation, tracheobronchitis, acute hypoxemic respiratory distress. Continue current treatment. Discharge home tomorrow on 04/25/2023. MMODL / IJN: [id number] /
[2023-04-26] MEDS ORDERED: methylPREDNISolone 4 MG TAB TAPER PO SCH (09:00)
== END 2023-04-25 16:52 | disposition home or self-care (01) | DRG 191 ==
LOC: EC 15:16 → 3SCARD 19:55
PROVIDERS: ADMIT Family Medicine; ATTEND Family Medicine
DX: J44.1 Chronic obstructive pulmonary disease with (acute) exacerbation (principal); G45.9 Transient cerebral ischemic attack, unspecified; I47.1 Supraventricular tachycardia; R47.01 Aphasia; E78.5 Hyperlipidemia, unspecified; E86.0 Dehydration; K58.9 Irritable bowel syndrome, unspecified; F17.210 Nicotine dependence, cigarettes, uncomplicated; F20.9 Schizophrenia, unspecified; K21.9 Gastro-esophageal reflux disease without esophagitis; M50.30 Other cervical disc degeneration, unspecified cervical region; F32.A Depression, unspecified; F41.9 Anxiety disorder, unspecified; G43.009 Migraine without aura, not intractable, without status migrainosus; R09.02 Hypoxemia; F40.240 Claustrophobia; R06.03 Acute respiratory distress; Z79.82 Long term (current) use of aspirin; Z79.899 Other long term (current) drug therapy; Z82.3 Family history of stroke; Z82.5 Family history of asthma and other chronic lower respiratory diseases; Z86.711 Personal history of pulmonary embolism; Z82.49 Family history of ischemic heart disease and other diseases of the circulatory system; Z86.718 Personal history of other venous thrombosis and embolism; Z87.01 Personal history of pneumonia (recurrent); Z88.5 Allergy status to narcotic agent; Z88.8 Allergy status to other drugs, medicaments and biological substances; Z91.040 Latex allergy status; Z86.010 Personal history of colon polyps
CPT/HCPCS: 36415; 70450; 71046; 71250; 80053; 80061; 82550; 84484; 85025; 85379; 85610; 85730; 87086; 93005; 93880; 94640; 94760; 95816; 96361; 96374; 99285

== ENCOUNTER 2023-06-05 08:27 | Observation (INO) | payer MEDICARE ==
[2023-06-05] MEDS ORDERED: ASPIRIN 81 MG PO STA (08:39)
--- NOTE | 2023-06-05 08:42 | ED ---
General Adult HPI - General Chief complaint: Chest Pain Stated complaint: Chest Pain,SOB,Dizziness Time Seen by Provider: 06/05/23 08:36 Source: patient, RN notes reviewed Mode of arrival: wheelchair Limitations: no limitations - History of Present Illness Initial comments: Patient is a pleasant 62-year-old female presenting to the emergency Department with chest discomfort. Onset of symptoms was this morning. Discomfort is left chest and has been waxing and waning. Discomfort is currently 7 or 8/10. Patient has follow-up with dizziness short of breath as well. Trace amount of cough. Patient is a smoker and trying to quit. No leg pain or leg swelling. Patient does have history of similar symptoms previously associated with cardiac disease however they were unable to place stents. - Related Data Home Medications Medication Instructions Recorded Confirmed DULoxetine HCL [Cymbalta] 30 mg PO HS 04/22/23 04/22/23 Omeprazole 40 mg PO HS 04/22/23 04/22/23 Previous Rx's Medication Instructions Recorded Atorvastatin [Lipitor] 40 mg PO HS #90 tab 10/31/22 Aspirin 325 mg PO DAILY tab 04/25/23 Atorvastatin [Lipitor] 40 mg PO HS 5 Days #1 tab 04/25/23 Budesonide-Formot 160-4.5 Mcg 2 puff INHALATION RT-BID 30 Days 04/25/23 [Symbicort 160-4.5 Mcg Inhaler] #1 each methylPREDNISolone Dose Pack 24 mg PO DAILY 5 Days #1 tab 04/25/23 [Medrol Dose Pack] Allergies Allergy/AdvReac Type Severity Reaction Status Date / Time hydrogen peroxide Allergy rash and Verified 06/05/23 08:32 skin burn Latex, Natural Rubber Allergy Swelling Verified 06/05/23 08:32 metronidazole Allergy Unknown Verified 06/05/23 08:32 fentanyl AdvReac decreased Verified 06/05/23 08:32 bp isosorbide AdvReac Rapid Verified 06/05/23 08:32 Heart Rate Review of Systems ROS Statement: Those systems with pertinent positive or pertinent negative responses have been documented in the HPI. ROS Other: All systems not noted in ROS Statement are negative. Constitutional: Denies: fever Eyes: Denies: eye pain ENT: Denies: ear pain Respiratory: Reports: as per HPI Cardiovascular: Reports: as per HPI, chest pain Endocrine: Denies: fatigue Gastrointestinal: Denies: abdominal pain, vomiting Genitourinary: Denies: dysuria Musculoskeletal: Denies: back pain Past Medical History Past Medical History: Chest Pain / Angina, COPD, Deep Vein Thrombosis (DVT), Eye Disorder, GERD/Reflux, Hyperlipidemia, Pneumonia, Pulmonary Embolus (PE), Syncope Additional Past Medical History / Comment(s): Chronic back and bilateral knee pain, DDD, cervical/back "nerve damage", "low BP", DVT right thigh, bilateral PEs in 2010 and 2015, migraines, osteoporosis, IBS, vertigo at times, R wrist 2 cysts, pt states since cataract surgery her vision has declined. History of Any Multi-Drug Resistant Organisms: None Reported Past Surgical History: Appendectomy, Cholecystectomy, Heart Catheterization Additional Past Surgical History / Comment(s): EGD/COLONOSCOPY/POLYPECTOMY- BENIGN, cardiac cath 06/10/16-normal, back/bilateral knee injections. epidural steroid inj -back, bilateral cataract removals/lens implants. Past Anesthesia/Blood Transfusion Reactions: No Reported Reaction Additional Past Anesthesia/Blood Transfusion Reaction / Comment(s): Pt has clausterphobia. Past Psychological History: Bipolar, Depression, Schizophrenia Smoking Status: Current every day smoker Past Alcohol Use History: None Reported Past Drug Use History: Marijuana - Past Family History Mother Family Medical History: Cancer, COPD, Hypertension Additional Family Medical History / Comment(s): Mother of LUNG CANCER at the age of 74yrs. Father Family Medical History: CVA/TIA, Hypertension Additional Family Medical History / Comment(s): Father had 2 CVAs and from the second one at the age of 52yrs. He was an alcoholic. General Exam Limitations: no limitations General appearance: alert, in no apparent distress Head exam: Present: normocephalic Eye exam: Present: normal appearance Neck exam: Present: normal inspection Respiratory exam: Present: normal lung sounds bilaterally Cardiovascular Exam: Present: regular rate, normal rhythm, normal heart sounds Expanded Peripheral pulses: 2+: Radial (R), Radial (L), Posterior Tibialis (R), Posterior Tibialis (L) GI/Abdominal exam: Present: soft. Absent: tenderness Extremities exam: Present: normal inspection. Absent: pedal edema, calf tenderness Neurological exam: Present: alert Psychiatric exam: Present: normal affect, normal mood Skin exam: Present: normal color Course Vital Signs 06/05/23 06/05/23 08:32 09:18 Temperature 98 F 97.9 F Pulse Rate 98 82 Respiratory 16 18 Rate Blood Pressure 110/67 123/66 O2 Sat by Pulse 98 94 L Oximetry - Reevaluation(s) Reevaluation #1: 06/05/23 08:41 I discussed smoking cessation for greater than 3 minutes. The risk of smoking were discussed with the patient including but not limited to risks of cancer, stroke, coronary artery disease and COPD. Also discussed with patient were multiple methods of quitting smoking. Lastly we discussed the financial cost of smoking. EKG Findings - EKG Results: EKG: interpreted by ERMD, sinus rhythm, normal axis, normal QRS, normal ST/T Medical Decision Making - Medical Decision Making Was pt. sent in by a medical professional or institution (, PA, WIND DEVELOPMENT DIRECTOR, urgent care, hospital, or fdc...) When possible be specific @ -No Did you speak to anyone other than the patient for history (EMS, parent, family, police, friend...)? What history was obtained from this source @ -No Did you review nursing and triage notes (agree or disagree)? Why? @ -I reviewed and agree with nursing and triage notes Were old charts reviewed (outside hosp., previous admission, EMS record, old EKG, old radiological studies, urgent care reports/EKG's, fdc records)? Report findings @ -No old charts were reviewed Differential Diagnosis (chest pain, altered mental status, abdominal pain women, abdominal pain men, vaginal bleeding, weakness, fever, dyspnea, syncope, headache, dizziness, GI bleed, back pain, seizure, CVA, palpatations, mental health, musculoskeletal)? @ -Differential Chest Pain: Stable Angina, Unstable Angina, STEMI, NSTEMI Aortic Dissection, Pneumothorax, Musculoskeletal, Esophageal Spasm GERD, Cholecystitis, Pancreatitis, Zoster, this is not meant to be an all-inclusive list. EKG interpreted by me (3pts min.). @ -As above X-rays interpreted by me (1pt min.). @ -Chest x-ray interpreted by myself shows no acute process CT interpreted by me (1pt min.). @ -Report reviewed U/S interpreted by me (1pt. min.). @ -None done What testing was considered but not performed or refused? (CT, X-rays, U/S, labs)? Why? @ -None What meds were considered but not given or refused? Why? @ -None Did you discuss the management of the patient with other professionals (professionals i.e. , PA, WIND DEVELOPMENT DIRECTOR, lab, RT, psych nurse, social media sr strategy manager, packager machine, teacher, catapult and arresting gear officer, manager rn case)? Give summary @ -Dr. Barriga has been paged for admission of this patient. Was smoking cessation discussed for >3mins.? @ -No Was critical care preformed (if so, how long)? @ -No Were there social determinants of health that impacted care today? How? (Homelessness, low income, unemployed, alcoholism, drug addiction, transpor tation, low edu. Level, literacy, decrease access to med. care, half-way, rehab)? @ -No Was there de-escalation of care discussed even if they declined (Discuss DNR or withdrawal of care, Hospice)? DNR status @ -No What co-morbidities impacted this encounter? (DM, HTN, Smoking, COPD, CAD, Cancer, CVA, ARF, Chemo, Hep., AIDS, mental health diagnosis, sleep apnea, morbid obesity)? @ -None Was patient admitted / discharged? Hospital course, mention meds given and route, prescriptions, significant lab abnormalities, going to OR and other pertinent info. @ -Patient reevaluated and resting comfortably in bed. Patient is updated on results and plan. Patient will be admitted with cardiac consult. Orders written. Undiagnosed new problem with uncertain prognosis? @ -No Drug Therapy requiring intensive monitoring for toxicity (Heparin, Nitro, Insulin, Cardizem)? @ -No Were any procedures done? @ -No Diagnosis/symptom? @ -Chest pain Acute, or Chronic, or Acute on Chronic? @ -Acute Uncomplicated (without systemic symptoms) or Complicated (systemic symptoms)? @ -default Side effects of treatment? @ -No Exacerbation, Progression, or Severe Exacerbation? @ -No Poses a threat to life or bodily function? How? (Chest pain, [place], [place], pneumonia, PE, COPD, DKA, ARF, appy, cholecystitis, CVA, Diverticulitis, Homicidal, Suicidal, threat to staff... and all critical care pts) @ -No - Lab Data Result diagrams: 06/05/23 08:44 06/05/23 08:44 Lab Results 08/06/05/23 06/05/23 Range/Units 08:44 08:44 08:44 WBC 5.5 (3.8-10.6) k/uL RBC 4.46 (3.80-5.40) m/uL Hgb 13.0 (11.4-16.0) gm/dL Hct 38.2 (34.0-46.0) % MCV 85.8 (80.0-100.0) fL MCH 29.2 (25.0-35.0) pg MCHC 34.1 (31.0-37.0) g/dL RDW 14.4 (11.5-15.5) % Plt Count 165 (150-450) k/uL MPV 8.9 Neutrophils % 55 % Lymphocytes % 35 % Monocytes % 5 % Eosinophils % 4 % Basophils % 0 % Neutrophils # 3.1 (1.3-7.7) k/uL Lymphocytes # 1.9 (1.0-4.8) k/uL Monocytes # 0.3 (0-1.0) k/uL Eosinophils # 0.2 (0-0.7) k/uL Basophils # 0.0 (0-0.2) k/uL PT 9.6 (9.0-12.0) sec INR 0.9 (<1.2) APTT 23.2 (22.0-30.0) sec D-Dimer 1.63 H (<0.60) mg/L FEU Sodium 133 L (137-145) mmol/L Potassium 4.4 (3.5-5.1) mmol/L Chloride 104 (98-107) mmol/L Carbon Dioxide 23 (22-30) mmol/L Anion Gap 6 mmol/L BUN 10 (7-17) mg/dL Creatinine 0.89 (0.52-1.04) mg/dL Est GFR (CKD-EPI)AfAm 80 (>60 ml/min/1.73 sqM) Est GFR (CKD-EPI)NonAf 70 (>60 ml/min/1.73 sqM) Glucose 92 (74-99) mg/dL Calcium 9.3 (8.4-10.2) mg/dL Magnesium 2.0 (1.6-2.3) mg/dL Total Bilirubin 0.5 (0.2-1.3) mg/dL AST 23 (14-36) U/L ALT 16 (4-34) U/L Alkaline Phosphatase 94 (38-126) U/L Troponin I (0.000-0.034) ng/mL Total Protein 6.6 (6.3-8.2) g/dL Albumin 3.8 (3.5-5.0) g/dL Coronavirus (PCR) (Not Detectd) 06/05/23 06/05/23 Range/Units 08:44 09:26 WBC (3.8-10.6) k/uL RBC (3.80-5.40) m/uL Hgb (11.4-16.0) gm/dL Hct (34.0-46.0) % MCV (80.0-100.0) fL MCH (25.0-35.0) pg MCHC (31.0-37.0) g/dL RDW (11.5-15.5) % Plt Count (150-450) k/uL MPV Neutrophils % % Lymphocytes % % Monocytes % % Eosinophils % % Basophils % % Neutrophils # (1.3-7.7) k/uL Lymphocytes # (1.0-4.8) k/uL Monocytes # (0-1.0) k/uL Eosinophils # (0-0.7) k/uL Basophils # (0-0.2) k/uL PT (9.0-12.0) sec INR (<1.2) APTT (22.0-30.0) sec D-Dimer (<0.60) mg/L FEU Sodium (137-145) mmol/L Potassium (3.5-5.1) mmol/L Chloride (98-107) mmol/L Carbon Dioxide (22-30) mmol/L Anion Gap mmol/L BUN (7-17) mg/dL Creatinine (0.52-1.04) mg/dL Est GFR (CKD-EPI)AfAm (>60 ml/min/1.73 sqM) Est GFR (CKD-EPI)NonAf (>60 ml/min/1.73 sqM) Glucose (74-99) mg/dL Calcium (8.4-10.2) mg/dL Magnesium (1.6-2.3) mg/dL Total Bilirubin (0.2-1.3) mg/dL AST (14-36) U/L ALT (4-34) U/L Alkaline Phosphatase (38-126) U/L Troponin I <0.012 (0.000-0.034) ng/mL Total Protein (6.3-8.2) g/dL Albumin (3.5-5.0) g/dL Coronavirus (PCR) Not Detected (Not Detectd) Disposition Clinical Impression: Chest pain Disposition: ADMITTED IP TO THIS HOSP Is patient prescribed a controlled substance at d/c from ED?: No Referrals: Louie Baker MD [Primary Care Provider] - 1-2 days Time of Disposition: 10:24
[2023-06-05 08:57] LABS: Basophils % (A) 0 %; Eosinophils # (A) 0.2 k/uL (0-0.7); Eosinophils % (A) 4 %; HCT 38.2 % (34.0-46.0); Lymphocytes # (A) 1.9 k/uL (1.0-4.8); Lymphocytes % (A) 35 %; MCH 29.2 pg (25.0-35.0); MCHC 34.1 g/dL (31.0-37.0); MCV 85.8 fL (80.0-100.0); Mean Platelet Volume 8.9; Monocytes # (A) 0.3 k/uL (0-1.0); Monocytes % (A) 5 %; Neutrophils # (A) 3.1 k/uL (1.3-7.7); Neutrophils % (A) 55 %; Platelet Count 165 k/uL (150-450); RBC 4.46 m/uL (3.80-5.40); RDW 14.4 % (11.5-15.5); WBC 5.5 k/uL (3.8-10.6)
[2023-06-05 09:10] LABS: INR 0.9 (<1.2); Partial Thromboplastin Time 23.2 sec (22.0-30.0); Prothrombin Time 9.6 sec (9.0-12.0)
[2023-06-05 09:22] LABS: ALT 16 U/L (4-34); AST 23 U/L (14-36); African American GFR (CKD) 80 (>60 ml/min/1.73 sqM); Albumin 3.8 g/dL (3.5-5.0); Alkaline Phosphatase 94 U/L (38-126); Anion Gap 6 mmol/L; Blood Urea Nitrogen 10 mg/dL (7-17); Calcium 9.3 mg/dL (8.4-10.2); Carbon Dioxide 23 mmol/L (22-30); Chloride 104 mmol/L (98-107); Glucose 92 mg/dL (74-99); Non-African American GFR(CKD) 70 (>60 ml/min/1.73 sqM); Potassium 4.4 mmol/L (3.5-5.1); Sodium 133 mmol/L (137-145); Total Bilirubin 0.5 mg/dL (0.2-1.3); Total Protein 6.6 g/dL (6.3-8.2)
--- NOTE | 2023-06-05 09:39 | XR ---
EXAMINATION TYPE: XR chest 2V DATE OF EXAM: 06/05/2023 COMPARISON: 04/22/2023 HISTORY: Shortness of breath TECHNIQUE: Frontal and lateral views of the chest are obtained. FINDINGS: Scattered senescent parenchymal changes noted. Hyperinflation compatible with COPD. No evidence for infiltrate. No evidence for atelectasis. Heart size is stable. Mediastinal structures are stable and grossly unremarkable. No evidence for hilar prominence. Degenerative changes dorsal spine. IMPRESSION: 1. No evidence for acute pulmonary disease.
[2023-06-05] MEDS ORDERED: MORPHINE SULFATE 4 MG/ML SYRINGE IVP STA (09:58)
--- NOTE | 2023-06-05 09:58 | CT ---
EXAMINATION TYPE: CT angio chest CT DLP: 333.8 mGycm, Automated exposure control for dose reduction was used. DATE OF EXAM: 06/05/2023 9:45 AM COMPARISON: Chest radiograph from same day. Multiple CTs of the chest with most recent on 04/24/2023 CLINICAL INDICATION:Female, 62 years old with history of cp; chest pain TECHNIQUE/CONTRAST: CTA scan of the thorax is performed with IV Contrast, patient injected with 100 mL of Isovue 370, pul monary embolism protocol. MIP images are created and reviewed. FINDINGS: Pulmonary Artery: There is no evidence for a filling defect within the pulmonary vasculature to sugge st acute pulmonary embolism. The pulmonary artery is of normal size. Lungs/Pleura: No evidence of focal consolidation, pleural effusion or pneumothorax. Biapical pleural pedicle scarring. Bilateral apical paraseptal emphysematous changes. Right upper lobe mild centrilobu lar emphysematous changes. Airway: Large airways are patent. Heart: Heart is within normal limits for size.. No pericardial effusion. Minimal coronary tear calcif ications. Vasculature: No evidence of aortic aneurysm. Mediastinum: No evidence of adenopathy. Musculoskeletal: No acute osseous abnormalities Soft Tissues: Unremarkable. Lower neck: No significant findings. Upper Abdomen: Postsurgical changes of the stomach. Small fat filled ventral wall incisional hernia. IMPRESSION: 1. No evidence of pulmonary embolism or acute thoracic process. 2. Mild COPD changes.
[2023-06-05] MEDS: MORPHINE SULFATE 2 MG/ML SYRINGE IVP PRN ×2 (17:20→21:50)
[2023-06-05] MEDS: traMADol 50 MG TAB PO SCH (17:59)
[2023-06-05] MEDS: IPRATROPIUM-ALBUTEROL 3 ML NEB INHALATION SCH (19:40)
[2023-06-06] MEDS: methylPREDNISolone SOD SUCCI 40 MG/ML 1 ML VIAL IV SCH ×3 (00:53→16:00)
--- NOTE | 2023-06-06 04:26 | HP ---
HISTORY AND PHYSICAL HISTORY: A 62-year-old white female came to emergency room with chest discomfort, waxing and waning, 7 to 8/10, dizziness, shortness of breath as well. There is some chest tightness and some coughing, possibly acid reflux. Also, she is a smoker, does have history of similar symptoms with cardiac disease, unable to place stents. HOME MEDICINES: 1. Cymbalta 30 daily. 2. Omeprazole 40 daily. ALLERGIES: REVIEW OF SYSTEMS: A 14-point review of systems, PND, orthopnea. No hematemesis. Skin dry. Vascular, normal. Pathologic normal. PAST MEDICAL HISTORY: Chest pain, angina, chronic obstructive pulmonary disease, DVT, eye disorder, GERD, pneumonia, PE, syncope. PAST SURGICAL HISTORY: Colonoscopy, lumpectomy. FAMILY HISTORY: Father, hypertension, CVA, TIA. Mother cancer, COPD, hypertension. PHYSICAL EXAMINATION: VITAL SIGNS: Blood pressure 110 to 123 over 60s, O2 of 94% to 98%, respiratory rate 16 to 18. LUNGS: Scattered rhonchi and wheeze. CARDIOVASCULAR: S1, S2. HEMATOLOGY: Negative Homans. OPHTHALMOLOGIC: Pupils are equal and reactive. NEUROLOGIC: Cranial nerves intact. PLAN: Continue current treatment. Follow up in next 24 to 48 hours. Prognosis guarded. Start with breathing treatments, Solu-Medrol. Prognosis guarded. MMODL / IJN: [id number] /
[2023-06-06] MEDS: MORPHINE SULFATE 2 MG/ML SYRINGE IVP PRN ×2 (04:56→13:29)
[2023-06-06] MEDS: traMADol 50 MG TAB PO SCH ×2 (07:58→17:44)
[2023-06-06] MEDS ORDERED: ASPIRIN 325 MG TAB PO SCH (09:00)
--- NOTE | 2023-06-06 10:27 | P.CRDCN ---
History of Present Illness History of present illness: Patient came in with chest discomfort She had a bowl of spaghetti and of that she has severe chest discomfort Her cardiac enzymes are normal Normal twelve-lead EKG normal ST segments No evidence for pulmonary embolism on computed tomography scan Hemoglobin 13, platelet count 165,000 Elevated d-dimer Normal cardiac enzymes sodium 133 but otherwise electrolytes are normal coronary virus negative On examination heart sounds are normal breath sounds are clear no JVD Blood pressure heart rate was 65 mmHg Suggest Workup for elevated d-dimer even in the absence of an obvious pulmonary embolus on computed tomography scan Consider Pulmicort consultation Hemoglobin A1c Lipid panel If she has further chest discomfort twelve-lead EKG at that time 2-D echo and Doppler study Past Medical History Past Medical History: Chest Pain / Angina, COPD, Deep Vein Thrombosis (DVT), Eye Disorder, GERD/Reflux, Hyperlipidemia, Pneumonia, Pulmonary Embolus (PE), Syncope Additional Past Medical History / Comment(s): Chronic back and bilateral knee pain, DDD, cervical/back "nerve damage", "low BP", DVT right thigh, bilateral PEs in 2010 and 2014, migraines, osteoporosis, IBS, vertigo at times, R wrist 2 cysts, pt states since cataract surgery her vision has declined. History of Any Multi-Drug Resistant Organisms: None Reported Past Surgical History: Appendectomy, Cholecystectomy, Heart Catheterization Additional Past Surgical History / Comment(s): EGD/COLONOSCOPY/POLYPECTOMY- BENIGN, cardiac cath 06/10/16-normal, back/bilateral knee injections. epidural steroid inj -back, bilateral cataract removals/lens implants. Past Anesthesia/Blood Transfusion Reactions: No Reported Reaction Additional Past Anesthesia/Blood Transfusion Reaction / Comment(s): Pt has clausterphobia. Past Psychological History: Bipolar, Depression, Schizophrenia Additional Psychological History / Comment(s): Mood disorder. She has a cane she uses prn. She has a L knee brace she uses prn. She no longer drives d/t declining vision. She either walks or [place] the bus [place] [employer]. Smoking Status: Current every day smoker Past Alcohol Use History: None Reported Additional Past Alcohol Use History / Comment(s): STARTED SMOKING AT AGE 14(1973) currently smokes 1 ppd. Past Drug Use History: Marijuana Additional Drug Use History / Comment(s): Pt states she smokes marijuana daily, 1-2 joints, to stimulate her appetite or to help her sleep. - Past Family History Mother Family Medical History: Cancer, COPD, Hypertension Additional Family Medical History / Comment(s): Mother of LUNG CANCER at the age of 74yrs. Father Family Medical History: CVA/TIA, Hypertension Additional Family Medical History / Comment(s): Father had 2 CVAs and from the second one at the age of 52yrs. He was an alcoholic. Medications and Allergies Home Medications Medication Instructions Recorded Confirmed Type traMADol HCl [Ultram] 50 mg PO Q12H 06/05/23 06/05/23 History Allergies Allergy/AdvReac Type Severity Reaction Status Date / Time hydrogen peroxide Allergy rash and Verified 06/05/23 12:35 skin burn Latex, Natural Rubber Allergy Swelling Verified 06/05/23 12:35 metronidazole Allergy Unknown Verified 06/05/23 12:35 fentanyl AdvReac decreased Verified 06/05/23 12:35 bp isosorbide AdvReac Rapid Verified 06/05/23 12:35 Heart Rate Physical Exam Vitals: Vital Signs Temp Pulse Pulse Resp BP BP Pulse Ox 06/06/23 08:00 98 16 06/06/23 07:00 98.4 F 98 16 105/66 06/06/23 02:47 97.8 F 68 14 108/65 95 06/05/23 20:30 70 06/05/23 19:52 89 06/05/23 19:42 78 06/05/23 19:17 97.9 F 70 14 104/67 94 L 06/05/23 14:56 58 L 14 06/05/23 14:35 98.4 F 58 L 14 133/79 96 06/05/23 14:09 74 18 108/56 96 Intake and Output 06/05/23 06/06/23 06/06/23 22:59 06:59 14:59 Other: Voiding Method Toilet Toilet # Voids 1 Results 06/05/23 08:44 06/05/23 08:44 Cardiac Enzymes 06/05/23 06/05/23 Range/Units 12:27 14:58 Troponin I <0.012 <0.012 (0.000-0.034) ng/mL Current Medications Generic Name Dose Route Start Last Admin Trade Name Freq PRN Reason Stop Dose Admin Albuterol/Ipratropium 3 ml 06/05/23 20:00 06/05/23 19:40 Ipratropium-Albuterol 3 Ml Neb INHALATION 3 ml RT-QID RHEA Administration Aspirin 325 mg 06/06/23 09:00 06/06/23 08:00 Aspirin 325 Mg Tab PO 325 mg DAILY RHEA Administration Methylprednisolone Sodium Succinate 40 mg 06/06/23 00:00 06/06/23 08:00 Methylprednisolone Sod Succi 40 Mg/Ml 1 Ml Vial IV 40 mg Q8HR RHEA Administration Morphine Sulfate 2 mg 06/05/23 17:09 06/06/23 04:56 Morphine Sulfate 2 Mg/Ml Syringe IVP 2 mg Q4HR PRN Administration Pain/Discomfort Tramadol HCl 50 mg 06/05/23 18:00 06/06/23 07:58 Tramadol 50 Mg Tab PO Not Given Q12H RHEA Intake and Output 06/05/23 06/06/23 06/06/23 22:59 06:59 14:59 Other: Voiding Method Toilet Toilet # Voids 1 06/05/23 08:44 06/05/23 08:44
[2023-06-06 11:44] LABS: Chol/HDL Ratio 4.96 Ratio; LDL Cholesterol,Calculated 165.2 mg/dL (0.0-131.0)
[2023-06-06] MEDS: IPRATROPIUM-ALBUTEROL 3 ML NEB INHALATION SCH ×3 (11:54→15:25)
[2023-06-06] MEDS ORDERED: NICOTINE 14MG/24HR PATCH TRANSDERM STA (12:38)
--- NOTE | 2023-06-06 12:41 | CA ---
Transthoracic Echo Report Name: Judy Saba Age: 62 Gender: F : 1960 Exam Date: 06/06/2023 10:37 Exam Location: [place] [facility] Ht (in): 66 Wt (lb): 176 Ordering Physician: Louie Baker MD Attending/Referring Phys: Net Sql Developer Greta Salmon RDCS Procedure CPT: Indications: dyspnea Cardiac Hx: Technical Quality: Fair Contrast 1: Total Dose (mL): Contrast 2: Total Dose (mL): MEASUREMENTS (Male / Female) Normal Values 2D ECHO LV Diastolic Diameter PLAX 4.4 cm 4.2 - 5.9 / 3.9 - 5.3 cm LV Systolic Diameter PLAX 2.6 cm IVS Diastolic Thickness 1.2 cm 0.6 - 1.0 / 0.6 - 0.9 cm LVPW Diastolic Thickness 1.3 cm 0.6 - 1.0 / 0.6 - 0.9 cm LV Relative Wall Thickness 0.6 LA Volume 35.9 cm??? 18 - 58 / 22 - 52 cm??? M-MODE Aortic Root Diameter MM 3.5 cm LA Systolic Diameter MM 3.5 cm LA Ao Ratio MM 1.0 AV Cusp Separation MM 2.3 cm DOPPLER AV Peak Velocity 208.4 cm/s AV Peak Gradient 17.4 mmHg AV Mean Velocity 143.4 cm/s AV Mean Gradient 9.0 mmHg AV Velocity Time Integral 45.8 cm AI Peak Velocity 484.7 cm/s AI Peak Gradient 94.0 mmHg AI Pressure Half Time 666.6 ms LVOT Peak Velocity 164.4 cm/s LVOT Peak Gradient 10.8 mmHg LVOT Velocity Time Integral 36.7 cm MV Area PHT 3.3 cm??? Mitral E Point Velocity 64.8 cm/s Mitral A Point Velocity 80.0 cm/s Mitral E to A Ratio 0.8 MV Deceleration Time 231.0 ms MV E' Velocity 7.4 cm/s Mitral E to MV E' Ratio 8.7 TR Peak Velocity 186.2 cm/s TR Peak Gradient 13.9 mmHg FINDINGS Left Ventricle Mildly increased left ventricular wall thickness. Left ventricular cavity size normal. Normal left ventricular systolic function with no obvious regional wall motion abnormalities. Left ventricular ejection fraction is estimated at 55 %. Right Ventricle Normal right ventricular size and function. Right ventricular systolic pressure within normal limits. Right Atrium Normal right atrial size. Left Atrium Normal left atrial size. Mitral Valve Structurally normal mitral valve. Mitral valve thickened. Mitral annular calcification. Trace to mild mitral regurgitation. Aortic Valve Trileaflet aortic valve. No aortic stenosis. Mild aortic regurgitation. Tricuspid Valve Structurally normal tricuspid valve. Mild tricuspid regurgitation. Pulmonic Valve Trace pulmonic regurgitation. Pericardium No pericardial effusion. Aorta Normal size aortic root and proximal ascending aorta. CONCLUSIONS normal lv Previewed by: Dr. Nixon Lopez MD (Electronically Signed) Final Date: 06 June 2023 12:39
[2023-06-06 13:43] VITALS: BMI 28.4
[2023-06-06 15:24] VITALS: BP 111/64; PULSE 68; RESP 18; TEMP 98.2
== END 2023-06-06 18:44 | disposition home or self-care (01) ==
LOC: EC 08:27 → 6NMEDSUR 12:10
PROVIDERS: ADMIT Family Medicine; ATTEND Family Medicine
DX: R07.89 Other chest pain (principal); J44.0 Chronic obstructive pulmonary disease with (acute) lower respiratory infection; K21.9 Gastro-esophageal reflux disease without esophagitis; E78.5 Hyperlipidemia, unspecified; M81.0 Age-related osteoporosis without current pathological fracture; K58.9 Irritable bowel syndrome, unspecified; R42 Dizziness and giddiness; F32.A Depression, unspecified; F17.210 Nicotine dependence, cigarettes, uncomplicated; Z86.718 Personal history of other venous thrombosis and embolism; Z79.82 Long term (current) use of aspirin; Z79.899 Other long term (current) drug therapy; Z79.51 Long term (current) use of inhaled steroids; Z91.040 Latex allergy status; Z86.711 Personal history of pulmonary embolism; Z88.8 Allergy status to other drugs, medicaments and biological substances; Z80.1 Family history of malignant neoplasm of trachea, bronchus and lung; Z82.5 Family history of asthma and other chronic lower respiratory diseases; Z82.49 Family history of ischemic heart disease and other diseases of the circulatory system; Z82.3 Family history of stroke; Z87.01 Personal history of pneumonia (recurrent); R79.89 Other specified abnormal findings of blood chemistry
CPT/HCPCS: 96376 ×2; 96375; 96374; 99285; 36415; 94640 ×3; 93005; 93306; 85379; 80061; 80053; 83735; 84484; 85025; 85610; 85730; 83036; 87635; 71046; 71275; G0378 ×2; S4990; J2270 ×3; J2920; Q9967

== ENCOUNTER → 2023-09-15 | Outpatient (CLI) | payer MEDICARE ==
--- NOTE | 2023-09-15 20:11 | MR ---
EXAMINATION TYPE: MR brain wo/w con DATE OF EXAM: 09/15/2023 COMPARISON: 07/19/2015 HISTORY: 63-year-old female dizziness and vision loss, hx of aneurysm TECHNIQUE: Multiplanar, multisequence images of the brain and brainstem were acquired before and aft er administration of 8 mL IV Gadavist. Diffusion weighted imaging is performed. FINDINGS: No evidence for acute infarction, hemorrhage, mass, mass effect, midline shift, herniation, effacemen t of basal cisterns, or extra-axial fluid collection. The ventricles and sulci are age-appropriate mild generalized supratentorial volume loss. Major intracranial flow voids are intact. T2/FLAIR weighted sequences show minimal scattered punctate bright white matter change particularly i n the subcortical regions of the left cerebral hemisphere, unchanged from 2015. A 1 cm prominent karla vascular space right basal ganglia also remains unchanged. Midline structures demonstrate normal morphology. The craniocervical junction is normal. Post contrast images demonstrate no evidence of pathologic enhancement. Dural venous sinuses are pat ent. Leftward nasal septal deviation. Trace mucosal thickening throughout the ethmoid air cells. Ongoing o pacification throughout the right mastoid air cells now with greater degree of fluid within the left mastoid air cells compared to 2015. IMPRESSION: 1. Mild age-related volume loss. Chronic T2 bright white matter change with minimal overall burden, s imilar to 2015. No acute intracranial abnormality seen. If persistent concern for intracranial aneury sm, consider MRA [place]. 2. Opacification of the right greater than left mastoid air cells. Graded for any pain to exclude mas toiditis.
== END | disposition home or self-care (01) ==
LOC: RADMRIMAIN 07:40
PROVIDERS: ATTEND Family Medicine
DX: I67.1 Cerebral aneurysm, nonruptured (principal); H74.8X3 Other specified disorders of middle ear and mastoid, bilateral
CPT/HCPCS: 70553; A9585

== ENCOUNTER 2023-10-31 10:04 | Inpatient (IN) | payer MEDICARE ==
[2023-10-31 10:32] LABS: Basophils % (A) 0 %; Eosinophils # (A) 0.2 k/uL (0-0.7); Eosinophils % (A) 3 %; HCT 36.5 % (34.0-46.0); HGB 12.4 gm/dL (11.4-16.0); Lymphocytes # (A) 1.3 k/uL (1.0-4.8); Lymphocytes % (A) 18 %; MCH 29.7 pg (25.0-35.0); MCV 87.4 fL (80.0-100.0); Mean Platelet Volume 9.1; Monocytes # (A) 0.4 k/uL (0-1.0); Monocytes % (A) 5 %; Neutrophils # (A) 5.2 k/uL (1.3-7.7); Neutrophils % (A) 71 %; Platelet Count 172 k/uL (150-450); RBC 4.18 m/uL (3.80-5.40); RDW 14.5 % (11.5-15.5); WBC 7.2 k/uL (3.8-10.6)
--- NOTE | 2023-10-31 10:32 | ED ---
Nausea/Vomiting/Diarrhea HPI - General Chief complaint: Nausea/Vomiting/Diarrhea Stated complaint: Weakness,[place] Time Seen by Provider: 10/31/23 10:31 Source: patient, RN notes reviewed Mode of arrival: ambulatory Limitations: no limitations - History of Present Illness Initial comments: This is a 63-year-old female who presents to the emergency department for nausea, vomiting, abdominal pain, and difficulty breathing. States that she has had intermittent episodes of nausea and vomiting over the last several days as well as sharp pain in her left side. This morning when she woke up, she noticed that it was difficult for her to take a deep and she felt weak. Her right leg also started to become swollen and painful. Reports a history of a pulmonary embolus several years ago, and at that time also had a clot in her leg and developed the same symptoms. Not currently taking any blood thinners. MD complaint: nausea, vomiting, diarrhea, abdominal pain - Related Data Home Medications Medication Instructions Recorded Confirmed DULoxetine HCL [Cymbalta] 30 mg PO HS 10/31/23 10/31/23 Ibuprofen [Motrin Ib] 800 mg PO Q6H PRN 10/31/23 10/31/23 Allergies Allergy/AdvReac Type Severity Reaction Status Date / Time hydrogen peroxide Allergy rash and Verified 10/31/23 10:09 skin burn Latex, Natural Rubber Allergy Swelling Verified 10/31/23 10:09 metronidazole Allergy Unknown Verified 10/31/23 10:09 fentanyl AdvReac decreased Verified 10/31/23 10:09 bp isosorbide AdvReac Rapid Verified 10/31/23 10:09 Heart Rate Review of Systems ROS Statement: Those systems with pertinent positive or pertinent negative responses have been documented in the HPI. ROS Other: All systems not noted in ROS Statement are negative. Past Medical History Past Medical History: Chest Pain / Angina, COPD, Deep Vein Thrombosis (DVT), Eye Disorder, GERD/Reflux, Hyperlipidemia, Pneumonia, Pulmonary Embolus (PE), Syncope Additional Past Medical History / Comment(s): Chronic back and bilateral knee pain, DDD, cervical/back "nerve damage", "low BP", DVT right thigh, bilateral PEs in 2010 and 2014, migraines, osteoporosis, IBS, vertigo at times, R wrist 2 cysts, pt states since cataract surgery her vision has declined. History of Any Multi-Drug Resistant Organisms: None Reported Past Surgical History: Appendectomy, Cholecystectomy, Heart Catheterization Additional Past Surgical History / Comment(s): EGD/COLONOSCOPY/POLYPECTOMY- BENIGN, cardiac cath 06/10/16-normal, back/bilateral knee injections. epidural steroid inj -back, bilateral cataract removals/lens implants. Past Anesthesia/Blood Transfusion Reactions: No Reported Reaction Additional Past Anesthesia/Blood Transfusion Reaction / Comment(s): Pt has clausterphobia. Past Psychological History: Bipolar, Depression, Schizophrenia Smoking Status: Current every day smoker Past Alcohol Use History: None Reported Past Drug Use History: Marijuana - Past Family History Mother Family Medical History: Cancer, COPD, Hypertension Additional Family Medical History / Comment(s): Mother of LUNG CANCER at the age of 74yrs. Father Family Medical History: CVA/TIA, Hypertension Additional Family Medical History / Comment(s): Father had 2 CVAs and from the second one at the age of 52yrs. He was an alcoholic. General Exam - General Exam Comments Initial Comments: Visual Physical Exam Vital signs reviewed General: Well-appearing, nontoxic, no acute distress. Head: Normocephalic, atraumatic Eyes: PERRLA, EOMI ENT: Airway patent Chest: Nonlabored breathing Skin: No visual rash, normal skin tone Neuro: Alert and oriented 3 Musculoskeletal: No gross abnormalities Limitations: no limitations General appearance: alert, in no apparent distress Head exam: Present: atraumatic, normocephalic, normal inspection Respiratory exam: Present: normal lung sounds bilaterally. Absent: respiratory distress, wheezes, rales, rhonchi, stridor Cardiovascular Exam: Present: regular rate, normal rhythm, normal heart sounds. Absent: systolic murmur, diastolic murmur, rubs, gallop, clicks GI/Abdominal exam: Present: soft, normal bowel sounds. Absent: distended, tenderness, guarding, rebound, rigid Extremities exam: Present: other (Swelling, tenderness, and erythema to the right lower extremity.) Neurological exam: Present: alert, oriented X3, CN II-XII intact Psychiatric exam: Present: normal affect, normal mood Course Vital Signs 10/31/23 10/31/23 10/31/23 10:07 13:46 13:53 Temperature 98.2 F Pulse Rate 73 72 77 Respiratory 22 16 16 Rate Blood Pressure 122/70 O2 Sat by Pulse 98 Oximetry Medical Decision Making - Medical Decision Making This is a 63-year-old female who presents to the emergency department for nausea, vomiting, leg pain, and shortness of breath. Was pt. sent in by a medical professional or institution? @ -No Did you speak to anyone other than the patient for history? @ -No Did you review nursing and triage notes? @ -Yes, and I agree, it is accurate with regards to the patient's symptoms. Were old charts reviewed? @ -No Differential Diagnosis? @ -Differential Nausea and Vomiting: Gastroenteritis, cholecystitis, appendicitis, pancreatitis, migraine, benign positional vertigo, food borne illness, pyelonephritis, irritable bowel syndrome, influenza, Covid, GERD, incarcerated hernia, intestinal obstruction, this is not meant to be an all-inclusive list. EKG interpreted by me (3pts min.)? @ -EKG interpreted by me demonstrating the following: Sinus rhythm. Ventricular rate 77 bpm, TN interval 132 ms, QRS duration 81 ms, QTC 381 ms. X-rays interpreted by me (1pt min.)? @ -Chest x-ray obtained, my interpretation identifies no localized consolidations or infiltrates. CT interpreted by me (1pt min.)? @ -CT angiogram of the chest obtained. My interpretation identifies bilateral pulmonary emboli. U/S interpreted by me (1pt. min.)? @ -Duplex ultrasound of the right lower extremity obtained. My interpretation identifies a DVT. What testing was considered but not performed? (CT, X-rays, U/S, labs)? Why? @ -None What meds were considered but not given? Why? @ -None Did you discuss the management of the patient with other professionals? @ -Yes, Dr. Baker, who accepts the patient for admission. Did you reconcile home meds? @ -Yes Was smoking cessation discussed for >3mins.? @ -No Was critical care preformed (if so, how long)? @ -Yes, >25 minutes Were there social determinants of health that impacted care today? How? (Homelessness, low income, unemployed, alcoholism, drug addiction, transportation, low edu. Level, literacy, decrease access to med. care, long-term, rehab)? @ -No Was there de-escalation of care discussed even if they declined? (Discuss DNR or withdrawal of care, Hospice)? @ -No What co-morbidities impacted this encounter? (DM, HTN, Smoking, COPD, CAD, Cancer, CVA, Hep., AIDS, mental health diagnosis, sleep apnea, morbid obesity)? @ -COPD, GERD, HLD Was patient admitted / discharged? @ -Admitted. Lab work obtained and found to be fairly unremarkable. Chest x- ray reveals a trace left pleural effusion. Duplex ultrasound of the right lower extremity was positive for a DVT. Given the patient's history of a pulmonary embolus with positive DVT and difficulty taking a deep breath, CTA of the chest was obtained. This revealed acute bilateral pulmonary embolism. There was no evidence of right heart strain. Urinalysis was also suggestive of infection. Urine was sent for culture and the patient was given a dose of Ceftriaxone. Blood cultures obtained as well. Patient started on high intensity heparin protocol for bilateral PE. Patient admitted to medicine for pulmonary embolus, right DVT, UTI, and weakness. Consult placed for pulmonology regarding the bilateral pulmonary embolism. Undiagnosed new problem with uncertain prognosis? @ -None Drug Therapy requiring intensive monitoring for toxicity (Heparin, Nitro, Insulin, Cardizem)? @ -Heparin Were any procedures done? @ -None Diagnosis/symptom? @ -Pulmonary embolism, right DVT, UTI, weakness Acute, or Chronic, or Acute on Chronic? @ -Acute Uncomplicated (without systemic symptoms) or Complicated (systemic symptoms)? @ -Complicated Side effects of treatment? @ -None Exacerbation, Progression, or Severe Exacerbation] @ -Not applicable Poses a threat to life or bodily function? @ -Yes This case was discussed in detail with the attending ED physician, Dr. Smith. Presentation, findings, and treatment plan discussed in detail as well. - Lab Data Result diagrams: 10/31/23 10:09 10/31/23 10:09 Lab Results 10/31/23 10/31/23 10/31/23 Range/Units 10:09 10:09 10:09 WBC 7.2 (3.8-10.6) k/uL RBC 4.18 (3.80-5.40) m/uL Hgb 12.4 (11.4-16.0) gm/dL Hct 36.5 (34.0-46.0) % MCV 87.4 (80.0-100.0) fL MCH 29.7 (25.0-35.0) pg MCHC 34.0 (31.0-37.0) g/dL RDW 14.5 (11.5-15.5) % Plt Count 172 (150-450) k/uL MPV 9.1 Neutrophils % 71 % Lymphocytes % 18 % Monocytes % 5 % Eosinophils % 3 % Basophils % 0 % Neutrophils # 5.2 (1.3-7.7) k/uL Lymphocytes # 1.3 (1.0-4.8) k/uL Monocytes # 0.4 (0-1.0) k/uL Eosinophils # 0.2 (0-0.7) k/uL Basophils # 0.0 (0-0.2) k/uL PT (10.0-12.5) sec INR (<1.2) APTT (22.0-30.0) sec Sodium 134 L (137-145) mmol/L Potassium 4.0 (3.5-5.1) mmol/L Chloride 109 H (98-107) mmol/L Carbon Dioxide 20 L (22-30) mmol/L Anion Gap 5 mmol/L BUN 5 L (7-17) mg/dL Creatinine 0.67 (0.52-1.04) mg/dL Est GFR (CKD-EPI)AfAm >90 (>60 ml/min/1.73 sqM) Est GFR (CKD-EPI)NonAf >90 (>60 ml/min/1.73 sqM) Glucose 102 H (74-99) mg/dL Calcium 8.6 (8.4-10.2) mg/dL Magnesium 2.0 (1.6-2.3) mg/dL Total Bilirubin 0.3 (0.2-1.3) mg/dL AST 18 (14-36) U/L ALT 13 (4-34) U/L Alkaline Phosphatase 124 (38-126) U/L Troponin I (0.000-0.034) ng/mL NT-Pro-B Natriuret Pep pg/mL Total Protein 5.8 L (6.3-8.2) g/dL Albumin 3.2 L (3.5-5.0) g/dL Amylase 46 (30-110) U/L Lipase 33 (23-300) U/L Urine Color Urine Appearance (Clear) Urine pH (5.0-8.0) Ur Specific Rays[place] (1.001-1.035) Urine Protein (Negative) Urine Glucose (UA) (Negative) Urine Ketones (Negative) Urine Blood (Negative) Urine Nitrite (Negative) Urine Bilirubin (Negative) Urine Urobilinogen (<2.0) mg/dL Ur Leukocyte Esterase (Negative) Urine RBC (0-5) /hpf Urine WBC (0-5) /hpf Ur Squamous Epith Cells (0-4) /hpf Urine Bacteria (None) /hpf Urine Mucus (None) /hpf Influenza Type A (PCR) Not Detected (Not Detectd) Influenza Type B (PCR) Not Detected (Not Detectd) RSV (PCR) Not Detected (Not Detectd) SARS-CoV-2 (PCR) Not Detected (Not Detectd) 10/31/23 10/31/23 10/31/23 Range/Units 13:13 13:13 13:45 WBC (3.8-10.6) k/uL RBC (3.80-5.40) m/uL Hgb (11.4-16.0) gm/dL Hct (34.0-46.0) % MCV (80.0-100.0) fL MCH (25.0-35.0) pg MCHC (31.0-37.0) g/dL RDW (11.5-15.5) % Plt Count (150-450) k/uL MPV Neutrophils % % Lymphocytes % % Monocytes % % Eosinophils % % Basophils % % Neutrophils # (1.3-7.7) k/uL Lymphocytes # (1.0-4.8) k/uL Monocytes # (0-1.0) k/uL Eosinophils # (0-0.7) k/uL Basophils # (0-0.2) k/uL PT (10.0-12.5) sec INR (<1.2) APTT (22.0-30.0) sec Sodium (137-145) mmol/L Potassium (3.5-5.1) mmol/L Chloride (98-107) mmol/L Carbon Dioxide (22-30) mmol/L Anion Gap mmol/L BUN (7-17) mg/dL Creatinine (0.52-1.04) mg/dL Est GFR (CKD-EPI)AfAm (>60 ml/min/1.73 sqM) Est GFR (CKD-EPI)NonAf (>60 ml/min/1.73 sqM) Glucose (74-99) mg/dL Calcium (8.4-10.2) mg/dL Magnesium (1.6-2.3) mg/dL Total Bilirubin (0.2-1.3) mg/dL AST (14-36) U/L ALT (4-34) U/L Alkaline Phosphatase (38-126) U/L Troponin I <0.012 (0.000-0.034) ng/mL NT-Pro-B Natriuret Pep 106 pg/mL Total Protein (6.3-8.2) g/dL Albumin (3.5-5.0) g/dL Amylase (30-110) U/L Lipase (23-300) U/L Urine Color Light Yellow Urine Appearance Clear (Clear) Urine pH 6.0 (5.0-8.0) Ur Specific Raysal 1.009 (1.001-1.035) Urine Protein Negative (Negative) Urine Glucose (UA) Negative (Negative) Urine Ketones Negative (Negative) Urine Blood Negative (Negative) Urine Nitrite Negative (Negative) Urine Bilirubin Negative (Negative) Urine Urobilinogen <2.0 (<2.0) mg/dL Ur Leukocyte Esterase Moderate H (Negative) Urine RBC 3 (0-5) /hpf Urine WBC 27 H (0-5) /hpf Ur Squamous Epith Cells 1 (0-4) /hpf Urine Bacteria Moderate H (None) /hpf Urine Mucus Rare H (None) /hpf Influenza Type A (PCR) (Not Detectd) Influenza Type B (PCR) (Not Detectd) RSV (PCR) (Not Detectd) SARS-CoV-2 (PCR) (Not Detectd) 10/31/23 Range/Units 13:45 WBC (3.8-10.6) k/uL RBC (3.80-5.40) m/uL Hgb (11.4-16.0) gm/dL Hct (34.0-46.0) % MCV (80.0-100.0) fL MCH (25.0-35.0) pg MCHC (31.0-37.0) g/dL RDW (11.5-15.5) % Plt Count (150-450) k/uL MPV Neutrophils % % Lymphocytes % % Monocytes % % Eosinophils % % Basophils % % Neutrophils # (1.3-7.7) k/uL Lymphocytes # (1.0-4.8) k/uL Monocytes # (0-1.0) k/uL Eosinophils # (0-0.7) k/uL Basophils # (0-0.2) k/uL PT 10.1 (10.0-12.5) sec INR 0.9 (<1.2) APTT 25.0 (22.0-30.0) sec Sodium (137-145) mmol/L Potassium (3.5-5.1) mmol/L Chloride (98-107) mmol/L Carbon Dioxide (22-30) mmol/L Anion Gap mmol/L BUN (7-17) mg/dL Creatinine (0.52-1.04) mg/dL Est GFR (CKD-EPI)AfAm (>60 ml/min/1.73 sqM) Est GFR (CKD-EPI)NonAf (>60 ml/min/1.73 sqM) Glucose (74-99) mg/dL Calcium (8.4-10.2) mg/dL Magnesium (1.6-2.3) mg/dL Total Bilirubin (0.2-1.3) mg/dL AST (14-36) U/L ALT (4-34) U/L Alkaline Phosphatase (38-126) U/L Troponin I (0.000-0.034) ng/mL NT-Pro-B Natriuret Pep pg/mL Total Protein (6.3-8.2) g/dL Albumin (3.5-5.0) g/dL Amylase (30-110) U/L Lipase (23-300) U/L Urine Color Urine Appearance (Clear) Urine pH (5.0-8.0) Ur Specific R[place] (1.001-1.035) Urine Protein (Negative) Urine Glucose (UA) (Negative) Urine Ketones (Negative) Urine Blood (Negative) Urine Nitrite (Negative) Urine Bilirubin (Negative) Urine Urobilinogen (<2.0) mg/dL Ur Leukocyte Esterase (Negative) Urine RBC (0-5) /hpf Urine WBC (0-5) /hpf Ur Squamous Epith Cells (0-4) /hpf Urine Bacteria (None) /hpf Urine Mucus (None) /hpf Influenza Type A (PCR) (Not Detectd) Influenza Type B (PCR) (Not Detectd) RSV (PCR) (Not Detectd) SARS-CoV-2 (PCR) (Not Detectd) - Radiology Data Radiology results: report reviewed, image reviewed Disposition Clinical Impression: Bilateral pulmonary embolism, Right leg DVT, Nausea & vomiting, UTI (urinary tract infection) Disposition: ADMITTED IP TO THIS [facility] Time of Disposition: 14:48
[2023-10-31 10:52] LABS: ALT 13 U/L (4-34); AST 18 U/L (14-36); African American GFR (CKD) >90 (>60 ml/min/1.73 sqM); Albumin 3.2 g/dL (3.5-5.0); Alkaline Phosphatase 124 U/L (38-126); Amylase 46 U/L (30-110); Anion Gap 5 mmol/L; Blood Urea Nitrogen 5 mg/dL (7-17); Calcium 8.6 mg/dL (8.4-10.2); Carbon Dioxide 20 mmol/L (22-30); Chloride 109 mmol/L (98-107); Glucose 102 mg/dL (74-99); Lipase 33 U/L (23-300); Non-African American GFR(CKD) >90 (>60 ml/min/1.73 sqM); Sodium 134 mmol/L (137-145); Total Bilirubin 0.3 mg/dL (0.2-1.3); Total Protein 5.8 g/dL (6.3-8.2)
[2023-10-31] MEDS ORDERED: KETOROLAC 15 MG/ML 1 ML VIAL IVP STA (11:49)
[2023-10-31] MEDS ORDERED: MORPHINE SULFATE 4 MG/ML SYRINGE IVP STA (11:49)
--- NOTE | 2023-10-31 12:21 | XR ---
EXAMINATION TYPE: XR chest 2V DATE OF EXAM: 10/31/2023 COMPARISON: 06/05/2023 HISTORY: 63-year-old female shortness of breath, difficulty breathing TECHNIQUE: PA and lateral views FINDINGS: Heart normal size. Aorta and pulmonary vasculature within normal limits. Strandy atelectasis left bas e. Trace left pleural effusion now present. IMPRESSION: There is a trace left pleural effusion that has developed.
[2023-10-31] MEDS ORDERED: IPRATROPIUM-ALBUTEROL 3 ML NEB INHALATION STA (12:35)
--- NOTE | 2023-10-31 13:19 | US ---
EXAMINATION TYPE: US venous doppler duplex LE RT DATE OF EXAM: 10/31/2023 12:58 PM COMPARISON: None CLINICAL INDICATION: Female, 63 years old with history of Right leg pain and swelling; Right leg pain /swelling SIDE PERFORMED: Right TECHNIQUE: The lower extremity deep venous system is examined utilizing real time linear array sonog evelina with graded compression, doppler sonography and color-flow sonography. VESSELS IMAGED: Common Femoral Vein Deep Femoral Vein Greater Saphenous Vein * Femoral Vein Popliteal Vein Small Saphenous Vein * Proximal Calf Veins (* superficial vessels) Right Leg: Positive for DVT distal femoral vein, popliteal veins, and proximal calf veins The appearance of the thrombus is expansive, occlusive, and hypoechoic. IMPRESSION: Findings suggest acute DVT right lower extremity involving the lower femoral vein down th rough the upper calf veins.
[2023-10-31 14:14] LABS: Appearance,Urine Clear (Clear); Bacteria,Urine Moderate /hpf; Bilirubin,Urine Negative (Negative); Blood,Urine Negative (Negative); Color,Urine Light Yellow; Glucose,Urine (UA) Negative (Negative); Ketones,Urine Negative (Negative); Leukocyte Esterase,Urine Moderate (Negative); Mucus,Urine Rare /hpf; Nitrite,Urine Negative (Negative); Protein,Urine Negative (Negative); RBC,Urine 3 /hpf (0-5); Specific Gravity,Urine 1.009 (1.001-1.035); Squamous Epithelial Cell,Urine 1 /hpf (0-4); Urobilinogen,Urine <2.0 mg/dL (<2.0); WBC,Urine 27 /hpf (0-5)
[2023-10-31 14:40] LABS: INR 0.9 (<1.2); Prothrombin Time 10.1 sec (10.0-12.5)
[2023-10-31] MEDS ORDERED: HEPARIN SODIUM 1,000 UN/ML (10ML VL) IV PRN (14:48)
[2023-10-31] MEDS ORDERED: HEPARIN SODIUM 1,000 UN/ML (10ML VL) IV ONE (14:48)
--- NOTE | 2023-10-31 14:50 | CT ---
EXAMINATION TYPE: CT chest angio for PE DATE OF EXAM: 10/31/2023 COMPARISON: CT September 28, 2015 HISTORY: SOB, hx of DVT CT DLP: 292.9 mGycm. Automated Exposure Control for Dose Reduction was Utilized. CONTRAST: CTA scan of the thorax is performed with IV Contrast, patient injected with 80cc mL of Isovue 370, pu lmonary embolism protocol. MIP Images are created on CT scanner and reviewed. FINDINGS: LUNGS: Mild to moderate parenchymal scarring greatest in the right lung apex is redemonstrated. Mild Emphysematous change again seen. Mild to moderate left basilar linear scarring and/or atelectasis wit h tiny left pleural effusion is noted. No pneumothorax seen bilaterally. MEDIASTINUM: There is satisfactory enhancement of the pulmonary artery and its branches, there is denice ateral pulmonary embolism beginning at the main pulmonary artery bifurcation with more prominent embo lism extending into the left lower lobe pulmonary artery. No CT evidence for right ventricular dilata tion. There are no greater than 1 cm hilar or mediastinal lymph nodes. No cardiomegaly. Tiny perica rdial effusion is seen. OTHER: Focal eventration the midline of the anterior abdominal wall is present. Surgical change near the gastroduodenal junction is noted. IMPRESSION: 1. There is acute bilateral pulmonary embolism. There is no CT evidence for right ventricular strain. 2. Mild emphysematous change with [id number] scattered atelectasis and/or scarring. No suspicio us acute pulmonary process. Critical results of acute bilateral pulmonary embolus was communicated to ordering emergency room jass pacheco printer's assistant via telephone at time of dictation.
[2023-10-31] MEDS ORDERED: NALOXONE 0.4 MG/ML 1 ML VIAL IV PRN (14:55)
[2023-10-31] MEDS ORDERED: HYDROcodone/APAP 5-325MG 1 EACH TAB PO PRN (14:55)
[2023-10-31] MEDS: HEPARIN SOD,PORK IN 0.45% NACL 25,000 UNIT in 0.45% NACL 1 250ML.BAG IV SCH (15:10)
[2023-10-31] MEDS ORDERED: cefTRIAXone IN SWFI 1,000 MG/10 ML SYRINGE IVP STA (15:50)
[2023-10-31] MEDS: HYDROmorphone 1 MG/ML 1 ML SYRINGE IVP PRN ×2 (16:17→19:49)
--- NOTE | 2023-10-31 18:24 | P.CNPUL ---
History of Present Illness Consult date: 10/31/23 Reason for consult: pulmonary embolism History of present illness: 63-year-old female patient, came into the ED with difficulty breathing, nausea, and emesis. She was having intermittent nausea and emesis over the past several days along with sharp pain on the left side of the chestand this was pleuritic chest pain and this started 2 weeks ago She was also noticing some swelling in the right lower extremity. She has had previous history of pulmonary embolism 7 years ago in addition to a clot in her left lower extremity. Based on that, she came into the hospital concerned about those new symptoms. Noted the patient is not taking any form of anticoagulants at this point in time. She is known to have COPD, previous history of a right lower extremity DVT and pulmonary embolism back in 2014, she is also known to have migraines, osteoporosis, IBS,. In the ED, the patient was found to have a normal viral panel, the risperidone is at 7.2 with a hemoglobin of 12.4, normal electrolytes, troponin was negative, LFTs were normal, UA showed 27 WBCs. Doppler of the lower extremity showed a positive DVT in the distal femoral vein popliteal vein and proximal Vein and a CT angiogram showed acute bilateral pulmonary embolism with no evidence of any RV strain pattern. The patient had a clot at the main pulmonary artery bifurcation and most of the prominent embolism is in the left lower lobe. There is mild emphysema in the background. No suspicious acute pulmonary abnormalities noted. At this point in time, the patient on room air oxygen. No significant tachycardia. She is normotensive. On a separate note, the patient was in the hospital back in October 2022. At that time, the patient had superior mesenteric artery syndrome and the patient was given a loop gastrojejunostomy back in 11/04/2022. Review of Systems Constitutional: Reports as per HPI Eyes: denies as per HPI, denies blurred vision, denies bulging eye, denies decreased vision, denies diplopia, denies discharge, denies dry eye, denies irritation, denies itching, denies pain, denies photophobia, denies loss of peripheral vision, denies loss of vision, denies tunnel vision/blind spots Ears: deny: decreased hearing, ear discharge, earache, tinnitus Ears, nose, mouth and throat: Reports as per HPI Breasts: absent: as per HPI, change in shape, gynecomastia, masses, nipple discharge, pain, skin changes, swelling Cardiovascular: Reports chest pain (this is what he was there was no SMA been TREATED by), Reports decreased exercise tolerance Respiratory: Reports dyspnea Gastrointestinal: Reports nausea, Reports vomiting Genitourinary: Reports as per HPI Menstruation: Reports as per HPI Musculoskeletal: Reports as per HPI Musculoskeletal: right: ankle swelling, absent: ankle pain, ankle stiffness Integumentary: Reports as per HPI Neurological: Reports as per HPI Psychiatric: Reports as per HPI Endocrine: Reports as per HPI Hematologic/Lymphatic: Reports as per HPI Allergic/Immunologic: Reports as per HPI Past Medical History Past Medical History: Chest Pain / Angina, COPD, Deep Vein Thrombosis (DVT), Eye Disorder, GERD/Reflux, Hyperlipidemia, Pulmonary Embolus (PE), Syncope Additional Past Medical History / Comment(s): Chronic back and bilateral knee pain, DDD, cervical/back "nerve damage", "low BP", DVT right thigh, bilateral PEs in 2015, migraines, osteoporosis, IBS, vertigo at times, R wrist 2 cysts, pt states since cataract surgery her vision has declined. History of Any Multi-Drug Resistant Organisms: None Reported Past Surgical History: Appendectomy, Cholecystectomy, Heart Catheterization Additional Past Surgical History / Comment(s): EGD/COLONOSCOPY/POLYPECTOMY- BENIGN, cardiac cath 06/10/16-normal, back/bilateral knee injections. epidural steroid inj -back, bilateral cataract removals/lens implants. Past Anesthesia/Blood Transfusion Reactions: No Reported Reaction Additional Past Anesthesia/Blood Transfusion Reaction / Comment(s): Pt has clausterphobia. Past Psychological History: Bipolar, Depression, Schizophrenia Smoking Status: Current every day smoker Past Alcohol Use History: None Reported Past Drug Use History: Marijuana - Past Family History Mother Family Medical History: Cancer, COPD, Hypertension Additional Family Medical History / Comment(s): Mother of LUNG CANCER at the age of 74yrs. Father Family Medical History: CVA/TIA, Hypertension Additional Family Medical History / Comment(s): Father had 2 CVAs and from the second one at the age of 52yrs. He was an alcoholic. Medications and Allergies Home Medications Medication Instructions Recorded Confirmed Type DULoxetine HCL [Cymbalta] 30 mg PO HS 10/31/23 10/31/23 History Ibuprofen [Motrin Ib] 800 mg PO Q6H PRN 10/31/23 10/31/23 History Allergies Allergy/AdvReac Type Severity Reaction Status Date / Time hydrogen peroxide Allergy rash and Verified 10/31/23 10:09 skin burn Latex, Natural Rubber Allergy Swelling Verified 10/31/23 10:09 metronidazole Allergy Unknown Verified 10/31/23 10:09 fentanyl AdvReac decreased Verified 10/31/23 10:09 bp isosorbide AdvReac Rapid Verified 10/31/23 10:09 Heart Rate Physical Exam Vitals: Vital Signs Temp Pulse Resp BP Pulse Ox 10/31/23 13:53 77 16 10/31/23 13:46 72 16 10/31/23 10:07 98.2 F 73 22 122/70 98 Intake and Output 10/31/23 10/31/23 10/31/23 06:59 14:59 22:59 Other: Weight 80.739 kg General appearance: alert, in no apparent distress, RA 02 and she is not having SOB or labored breathing Head exam: Present: atraumatic, normocephalic, normal inspection Respiratory exam: Present: normal lung sounds bilaterally. Absent: respiratory distress, wheezes, rales, rhonchi, stridor Cardiovascular Exam: Present: regular rate, normal rhythm, normal heart sounds. Absent: systolic murmur, diastolic murmur, rubs, gallop, clicks GI/Abdominal exam: Present: soft, normal bowel sounds. Absent: distended, tenderness, guarding, rebound, rigid Extremities exam: Present: other (Swelling, tenderness, and erythema to the right lower extremity.) Neurological exam: Present: alert, oriented X3, CN II-XII intact Psychiatric exam: Present: normal affect, normal mood Results - Laboratory Findings CBC and BMP: 10/31/23 10:09 10/31/23 10:09 PT/INR, D-dimer PT 10.1 sec (10.0-12.5) 10/31/23 13:45 INR 0.9 (<1.2) 10/31/23 13:45 Abnormal lab findings: Abnormal Labs 10/31/23 10/31/23 10:09 13:45 Sodium 134 L Chloride 109 H Carbon Dioxide 20 L BUN 5 L Glucose 102 H Total Protein 5.8 L Albumin 3.2 L Ur Leukocyte Esterase Moderate H Urine WBC 27 H Urine Bacteria Moderate H Urine Mucus Rare H - Diagnostic Findings Chest x-ray: image reviewed CT scan - chest: image reviewed Assessment and Plan Plan: Acute right lower extremity DVT and secondary pulmonary embolism. There is a recurrent event. The patient has had previous history of DVT and pulmonary embolism back in 2014. Noted the patient is not taking any form of anticoagulants. No RV strain pattern. No hemodynamic instability. No sinus tachycardia. Nevertheless, the patient is a large clot burden based on the CAT scan of the chest. Troponins are negative. Awaiting an echocardiogram evaluate for RV strain. Based on the CAT scan finding, no significant strain on the RV at this point in time. No significant hypoxemia and the patient is currently on room air oxygen Previous history of DVT and pulmonary embolism COPD, currently inactive and stable Previous history of SMA syndrome post loop gastrojejunostomy Hyperlipidemia Osteoporosis Migraines IBS Plan Monitor oxygen flow to maintain saturation above 90%, currently on room air oxygen Continue IV heparin Echocardiogram to evaluate PA pressures May benefit from aggressive surgery consultation This will be a lifelong and the coagulation due to recurrent DVTs and pulmonary emboli We'll continue to follow
[2023-10-31] MEDS ORDERED: LORazepam 2 MG/ML INJ IV PRN (18:33)
[2023-10-31] MEDS: DULoxetine HCL 30 MG CAPSULE.DR PO SCH (19:49)
[2023-10-31] MEDS: NICOTINE 21MG/24HR PATCH TRANSDERM SCH (19:49)
[2023-10-31] MEDS: IPRATROPIUM-ALBUTEROL 3 ML NEB INHALATION SCH (21:18)
[2023-11-01] MEDS: ACETAMINOPHEN TAB 325 MG TAB PO PRN ×2 (01:18→19:48)
[2023-11-01] MEDS: ONDANSETRON 4 MG/2 ML VIAL IVP PRN ×3 (01:47→19:44)
[2023-11-01] MEDS: HYDROmorphone 1 MG/ML 1 ML SYRINGE IVP PRN (02:17)
--- NOTE | 2023-11-01 02:20 | HP ---
HISTORY AND PHYSICAL 63-year-old came to the emergency room with nausea, vomiting, abdominal pain, difficulty breathing, intermittent episodes of nausea, vomiting over the past several days, sharp pain in her low back. She has also had difficulty to take a deep breath. When she felt weak, they become swollen and painful. History of pulmonary embolus several years ago, clot in her leg. No blood thinners. abdominal pain. HOME MEDICATIONS: Cymbalta and ibuprofen. ALLERGIES: 1. Hydrogen peroxide. 2. Flagyl. 3. . 4. Isosorbide. REVIEW OF SYSTEMS: 14-point review of systems otherwise negative. PAST MEDICAL HISTORY: COPD, DVT, chest pain, angina, GERD, pneumonia, pulmonary embolism, syncope, dyslipidemia, migraines, bilateral PEs in the past, IBS, vertigo, EGD and colonoscopies done, bipolar depression, schizophrenia. SOCIAL HISTORY: Current everyday smoker, marijuana. FAMILY HISTORY: Mother, cancer, COPD, hypertension. Father CVA, TIA, hypertension. PHYSICAL EXAMINATION: VITAL SIGNS: Temperature 98.2, pulse 70s, respiratory rate 16-22, blood pressure 122/70, O2 98. CARDIOVASCULAR: S1, S2. LUNGS: Decreased breath sounds. GI: Soft. HEMATOLOGY: Generalized edema and swelling. NEUROLOGIC: Cranial nerves intact. PSYCH: Fair mood and affect. Pupils equal, round, reactive. CTA shows bilateral pulmonary embolisms. Positive DVT in the right lower extremities. We will try blood thinners. Continue current treatments. Prognosis guarded. Follow up in next 24 to 48 hours. Start diet. Get vascular consult. MMODL / IJN: [id number] /
[2023-11-01] MEDS: NICOTINE 21MG/24HR PATCH TRANSDERM SCH (08:01)
[2023-11-01] MEDS: HEPARIN SOD,PORK IN 0.45% NACL 25,000 UNIT in 0.45% NACL 1 250ML.BAG IV SCH (08:57)
[2023-11-01] MEDS: IPRATROPIUM-ALBUTEROL 3 ML NEB INHALATION SCH ×4 (09:44→21:39)
[2023-11-01 10:44] LABS: Basophils % (A) 1 %; Eosinophils # (A) 0.2 k/uL (0-0.7); Eosinophils % (A) 4 %; HCT 36.7 % (34.0-46.0); HGB 12.4 gm/dL (11.4-16.0); Lymphocytes # (A) 1.2 k/uL (1.0-4.8); Lymphocytes % (A) 20 %; MCH 30.7 pg (25.0-35.0); MCHC 33.7 g/dL (31.0-37.0); MCV 91.1 fL (80.0-100.0); Mean Platelet Volume 8.7; Monocytes # (A) 0.2 k/uL (0-1.0); Monocytes % (A) 4 %; Neutrophils % (A) 69 %; Platelet Count 189 k/uL (150-450); RBC 4.03 m/uL (3.80-5.40); RDW 14.4 % (11.5-15.5); WBC 5.8 k/uL (3.8-10.6)
[2023-11-01] MEDS: Apixaban Initiation Dose--VTE 5 MG TAB PO SCH ×2 (11:39→19:45)
--- NOTE | 2023-11-01 12:17 | P.PN ---
Subjective Progress Note Date: 11/01/23 63-year-old female patient, came into the ED with difficulty breathing, nausea, and emesis. She was having intermittent nausea and emesis over the past several days along with sharp pain on the left side of the chestand this was pleuritic chest pain and this started 2 weeks ago She was also noticing some swelling in the right lower extremity. She has had previous history of pulmonary embolism 7 years ago in addition to a clot in her left lower extremity. Based on that, she came into the hospital concerned about those new symptoms. Noted the patient is not taking any form of anticoagulants at this point in time. She is known to have COPD, previous history of a right lower extremity DVT and pulmonary embolism back in 2014, she is also known to have migraines, osteoporosis, IBS,. In the ED, the patient was found to have a normal viral panel, the risperidone is at 7.2 with a hemoglobin of 12.4, normal electrolytes, troponin was negative, LFTs were normal, UA showed 27 WBCs. Doppler of the lower extremity showed a positive DVT in the distal femoral vein popliteal vein and proximal Vein and a CT angiogram showed acute bilateral pulmonary embolism with no evidence of any RV strain pattern. The patient had a clot at the main pulmonary artery bifurcation and most of the prominent embolism is in the left lower lobe. There is mild emphysema in the background. No suspicious acute p ulmonary abnormalities noted. At this point in time, the patient on room air oxygen. No significant tachycardia. She is normotensive. On a separate note, the patient was in the hospital back in October 2022. At that time, the patient had superior mesenteric artery syndrome and the patient was given a loop gastrojejunostomy back in 11/04/2022. On 11/01/2023, I'm seeing the patient for a follow-up. Doing well. No specific complaints. He remains on IV heparin. She is on room air oxygen. Still having some limited pleuritic pain in her left lung base. She is also encountering some nausea which is a chronic problem for this patient. Otherwise, no new complaints. White cell cause of 5.8 with a hemoglobin of 12.4. No bleeding complications. Objective - Vital Signs Vital signs: Vital Signs Temp 97.6 F 10/31/23 20:00 Pulse 103 H 11/01/23 08:00 Resp 16 11/01/23 08:00 BP 128/76 11/01/23 08:00 Pulse Ox 96 11/01/23 08:00 FiO2 Intake & Output 10/31/23 11/01/23 11/01/23 18:59 06:59 18:59 Intake Total 1217.613 105.683 Balance 1217.613 105.683 Weight 80.739 kg Intake: Intake, IV Titration 97.613 105.683 Amount Heparin Sod,Pork in 0.45% 97.613 105.683 NaCl 25,000 unit In 0.45 % NaCl 1 250ml.bag @ 18 UNITS/KG/HR 14.533 mls/hr IV .[id number] [facility] Rx#: [id number] Oral 1120 Other: Voiding Method Toilet # Voids 1 - Exam General appearance: alert, in no apparent distress, RA 02 and she is not having SOB or labored breathing Head exam: Present: atraumatic, normocephalic, normal inspection Respiratory exam: Present: normal lung sounds bilaterally. Absent: respiratory distress, wheezes, rales, rhonchi, stridor Cardiovascular Exam: Present: regular rate, normal rhythm, normal heart sounds. Absent: systolic murmur, diastolic murmur, rubs, gallop, clicks GI/Abdominal exam: Present: soft, normal bowel sounds. Absent: distended, tenderness, guarding, rebound, rigid Extremities exam: Present: other (Swelling, tenderness, and erythema to the right lower extremity.) Neurological exam: Present: alert, oriented X3, CN II-XII intact Psychiatric exam: Present: normal affect, normal mood - Labs CBC & Chem 7: 11/01/23 08:05 10/31/23 10:09 Labs: Abnormal Lab Results - Last 24 Hours (Table) 10/31/23 10/31/23 10/31/23 Range/Units 10:09 13:45 20:55 APTT >200.0 H* (22.0-30.0) sec Sodium 134 L (137-145) mmol/L Chloride 109 H (98-107) mmol/L Carbon Dioxide 20 L (22-30) mmol/L BUN 5 L (7-17) mg/dL Glucose 102 H (74-99) mg/dL Total Protein 5.8 L (6.3-8.2) g/dL Albumin 3.2 L (3.5-5.0) g/dL Ur Leukocyte Esterase Moderate H (Negative) Urine WBC 27 H (0-5) /hpf Urine Bacteria Moderate H (None) /hpf Urine Mucus Rare H (None) /hpf 11/01/23 Range/Units 08:05 APTT 91.2 H (22.0-30.0) sec Sodium (137-145) mmol/L Chloride (98-107) mmol/L Carbon Dioxide (22-30) mmol/L BUN (7-17) mg/dL Glucose (74-99) mg/dL Total Protein (6.3-8.2) g/dL Albumin (3.5-5.0) g/dL Ur Leukocyte Esterase (Negative) Urine WBC (0-5) /hpf Urine Bacteria (None) /hpf Urine Mucus (None) /hpf Assessment and Plan Plan: Acute right lower extremity DVT and secondary pulmonary embolism. There is a recurrent event. The patient has had previous history of DVT and pulmonary embolism back in 2014. Noted the patient is not taking any form of anticoagulants. No RV strain pattern. No hemodynamic instability. No sinus tachycardia. Nevertheless, the patient is a large clot burden based on the CAT scan of the chest. Troponins are negative. Awaiting an echocardiogram evaluate for RV strain. Based on the CAT scan finding, no significant strain on the RV at this point in time. No significant hypoxemia and the patient is currently on room air oxygen Previous history of DVT and pulmonary embolism COPD, currently inactive and stable Previous history of SMA syndrome post loop gastrojejunostomy Hyperlipidemia Osteoporosis Migraines IBS Plan Stop the IV heparin and start the patient to coagulation with Eliquis Monitor oxygen flow to maintain saturation above 90%, currently on room air oxygen Provide the patient incentive spirometer and provide Tylenol for the pleuritic chest pain Echocardiogram to evaluate PA pressures This will be a lifelong and the coagulation due to recurrent DVTs and pulmonary emboli We'll continue to follow
[2023-11-01] MEDS ORDERED: METOCLOPRAMIDE 5 MG/ML 2 ML VIAL IVP PRN (15:30)
[2023-11-01] MEDS: DULoxetine HCL 30 MG CAPSULE.DR PO SCH (19:44)
--- NOTE | 2023-11-02 00:56 | P.PN ---
Progress Note - Text Progress Note Date: 11/01/23 Hospital course: I'm gone to Dr. Louie Baker. 11/01/2023: Laying in bed. Breathing better. Leg pain is better. Patient been feeling nauseated and vomited. Dilaudid discontinued as a concern this was causing the symptoms. Patient is IV heparin. To be swished over to eliquis today. Because of prior abdominal surgery and GI symptoms, will consult Dr. Barnes the patient is known Active Medications Acetaminophen (Acetaminophen Tab 325 Mg Tab) 650 mg PO Q6HR PRN PRN Reason: Mild Pain or Fever > 100.5 Last Admin: 11/01/23 19:48 Dose: 650 mg Albuterol/Ipratropium (Ipratropium-Albuterol 3 Ml Neb) 3 ml INHALATION RT-QID [facility] Last Admin: 11/01/23 21:39 Dose: Not Given Apixaban (Apixaban Initiation Dose--Vte 5 Mg Tab) 10 mg PO BID [facility]; Taper Stop: 12/01/23 08:59 Last Admin: 11/01/23 19:45 Dose: 10 mg Duloxetine HCl (Duloxetine Hcl 30 Mg Capsule.Dr) 30 mg PO HS [facility] Last Admin: 11/01/23 19:44 Dose: 30 mg Lorazepam (Lorazepam 2 Mg/Ml Inj) 0.5 mg IV Q6HR PRN PRN Reason: Anxiety Last Admin: 10/31/23 21:59 Dose: 0.5 mg Metoclopramide HCl (Metoclopramide 5 Mg/Ml 2 Ml Vial) 10 mg IVP Q6HR PRN PRN Reason: Nausea Last Admin: 11/01/23 15:51 Dose: 10 mg Naloxone HCl (Naloxone 0.4 Mg/Ml 1 Ml Vial) 0.2 mg IV Q2M PRN PRN Reason: Opioid Reversal Nicotine (Nicotine 21mg/24hr Patch) 1 patch TRANSDERM DAILY [facility] Last Admin: 11/01/23 08:01 Dose: 1 patch Ondansetron HCl (Ondansetron 4 Mg/2 Ml Vial) 4 mg IVP Q8HR PRN PRN Reason: Nausea And Vomiting Last Admin: 11/01/23 19:44 Dose: 4 mg On examination: VITAL SIGNS: [98.1, 112, 16, 1:30/77, 94% room air] GENERAL APPEARANCE: Average build. Lying in bed, not in distress. HEENT: Normal external appearance of nose and ear. Oral cavity normal EYES: Pupils equal. Conjunctiva normal. NECK: JVD not raised. Mass not palpable. RESPIRATORY: Respiratory effort normal. Lungs clear to auscultation. CARDIOVASCULAR: First and second sounds normal. No edema. ABDOMEN: Soft. Liver and spleen not palpable. No tenderness. No mass palpable. PSYCHIATRY: Alert and oriented x3. Mood and affect normal. INVESTIGATIONS, reviewed in the clinical context: November 01: White count 5.8 hemoglobin 12.4 platelets 189 Assessment and plan: -Acute right lower extremity DVT and secondary pulmonary embolism. recurrent event. previous history of DVT and pulmonary embolism back in 2014. Noted the patient is not taking any form of anticoagulants. No RV strain pattern. No hemodynamic instability. IV heparin. To be swished over to eliquis. -IV heparin monitoring Follow PTT Previous history of DVT and pulmonary embolism COPD, currently inactive and stable Previous history of SMA syndrome post loop gastrojejunostomy [facility] [employer] Dr. Barnes Osteoporosis Migraines IBS Bipolar Both the -Chronic nicotine dependence, cigarette smoker
[2023-11-02] MEDS: IPRATROPIUM-ALBUTEROL 3 ML NEB INHALATION SCH ×4 (08:23→21:11)
[2023-11-02] MEDS: Apixaban Initiation Dose--VTE 5 MG TAB PO SCH ×2 (08:33→20:08)
[2023-11-02] MEDS: ACETAMINOPHEN TAB 325 MG TAB PO PRN ×2 (08:34→14:30)
[2023-11-02] MEDS: NICOTINE 21MG/24HR PATCH TRANSDERM SCH (08:34)
[2023-11-02] MEDS: ONDANSETRON 4 MG/2 ML VIAL IVP PRN ×2 (08:37→16:06)
--- NOTE | 2023-11-02 10:49 | P.GSCN ---
History of Present Illness Consult date: 11/02/23 Reason for Consult: Nausea History of present illness: This is a 63-year-old female known to myself. Patient complaints of nausea. Patient has a previous history of SMA syndrome. Patient underwent operative repair year ago. Patient states that her nausea has improved. She was able he this morning. Past Medical History Past Medical History: Chest Pain / Angina, COPD, Deep Vein Thrombosis (DVT), Eye Disorder, GERD/Reflux, Hyperlipidemia, Pneumonia, Pulmonary Embolus (PE), Syncope Additional Past Medical History / Comment(s): Chronic back and bilateral knee pain, DDD, cervical/back "nerve damage", "low BP", DVT right thigh, bilateral PEs in 2010 and 2014, migraines, osteoporosis, IBS, vertigo at times, R wrist 2 cysts, pt states since cataract surgery her vision has declined. History of Any Multi-Drug Resistant Organisms: None Reported Past Surgical History: Appendectomy, Cholecystectomy, Heart Catheterization Additional Past Surgical History / Comment(s): EGD/COLONOSCOPY/POLYPECTOMY- BENIGN, cardiac cath 06/10/16-normal, back/bilateral knee injections. epidural steroid inj -back, bilateral cataract removals/lens implants. Past Anesthesia/Blood Transfusion Reactions: No Reported Reaction Additional Past Anesthesia/Blood Transfusion Reaction / Comm: Pt has clausterphobia. Past Psychological History: Bipolar, Depression, Schizophrenia Smoking Status: Current every day smoker Past Alcohol Use History: None Reported Past Drug Use History: Marijuana - Past Family History Mother Family Medical History: Cancer, COPD, Hypertension Additional Family Medical History / Comment(s): Mother of LUNG CANCER at the age of 74yrs. Father Family Medical History: CVA/TIA, Hypertension Additional Family Medical History / Comment(s): Father had 2 CVAs and from the second one at the age of 52yrs. He was an alcoholic. Medications and Allergies Home Medications Medication Instructions Recorded Confirmed Type DULoxetine HCL [Cymbalta] 30 mg PO HS 10/31/23 10/31/23 History Ibuprofen [Motrin Ib] 800 mg PO Q6H PRN 10/31/23 10/31/23 History Allergies Allergy/AdvReac Type Severity Reaction Status Date / Time hydrogen peroxide Allergy rash and Verified 10/31/23 10:09 skin burn Latex, Natural Rubber Allergy Swelling Verified 10/31/23 10:09 metronidazole Allergy Unknown Verified 10/31/23 10:09 fentanyl AdvReac decreased Verified 10/31/23 10:09 bp isosorbide AdvReac Rapid Verified 10/31/23 10:09 Heart Rate Surgical - Exam Vital Signs Temp Pulse Resp BP Pulse Ox 98.2 F 73 22 122/70 98 10/31/23 10:07 10/31/23 10:07 10/31/23 10:07 10/31/23 10:07 10/31/23 10:07 - General well developed, well nourished, no distress - ENT normal pinna - Neck no masses - Respiratory normal expansion - Cardiovascular Rhythm: regular - Abdomen Abdomen: soft, non tender Results - Labs 11/01/23 08:05 10/31/23 10:09 Microbiology - Last 24 Hours (Table) 10/31/23 13:45 Urine Culture - Preliminary Urine,Voided Gram Neg Bacilli 10/31/23 16:02 Blood Culture - Preliminary Blood 10/31/23 16:02 Blood Culture - Preliminary Blood Assessment and Plan Assessment: Nausea. The etiology is unclear. Patient is improving. She'll be observed.
--- NOTE | 2023-11-02 11:22 | CA ---
Transthoracic Echo Report Name: Judy Saba Age: 63 Gender: F : 1960 Exam Date: 11/01/2023 09:46 Exam Location: [place] [facility] Ht (in): 66 Wt (lb): 178 Ordering Physician: Cammy Garibay MD Attending/Referring Phys: Senior Corporate Accountant Tosha Pfeiffer RD Procedure CPT: Indications: PE Cardiac Hx: Technical Quality: Technically difficult study Contrast 1: Total Dose (mL): Contrast 2: Total Dose (mL): MEASUREMENTS (Male / Female) Normal Values 2D ECHO LV Diastolic Diameter PLAX 4.4 cm 4.2 - 5.9 / 3.9 - 5.3 cm LV Systolic Diameter PLAX 2.9 cm IVS Diastolic Thickness 1.1 cm 0.6 - 1.0 / 0.6 - 0.9 cm LVPW Diastolic Thickness 1.1 cm 0.6 - 1.0 / 0.6 - 0.9 cm LV Relative Wall Thickness 0.5 RV Internal Dim ED PLAX 2.7 cm LVOT Diameter 2.0 cm Aortic Root Diameter 3.2 cm LA Systolic Diameter LX 2.2 cm 3.0 - 4.0 / 2.7 - 3.8 cm LV Diastolic Volume MOD BP 48.8 cm??? 67 - 155 / 56 - 104 cm??? LV Systolic Volume MOD BP 21.3 cm??? 22 - 58 / 19 - 49 cm??? LV Ejection Fraction MOD BP 56.3 % >= 55 % LV Cardiac Index MOD BP 1345.0 cm???/min???m??? LV Diastolic Volume MOD 4C 50.9 cm??? LV Systolic Volume MOD 4C 24.2 cm??? LV Ejection Fraction MOD 4C 52.4 % LV Cardiac Index MOD 4C 1304.6 cm???/min???m??? LV Diastolic Length 4C 7.0 cm LV Systolic Length 4C 5.8 cm LV Diastolic Volume MOD 2C 46.1 cm??? LV Systolic Volume MOD 2C 16.3 cm??? LV Ejection Fraction MOD 2C 64.6 % LV Cardiac Index MOD 2C 1458.3 cm???/min???m??? LV Diastolic Length 2C 7.2 cm LV Systolic Length 2C 6.8 cm LA Volume 34.4 cm??? 18 - 58 / 22 - 52 cm??? LA Volume Index 17.6 cm???/m??? 16 - 28 cm???/m??? DOPPLER AV Peak Velocity 145.8 cm/s AV Peak Gradient 8.5 mmHg AV Mean Velocity 83.4 cm/s AV Mean Gradient 3.4 mmHg AV Velocity Time Integral 26.3 cm AI Peak Velocity 209.9 cm/s AI Peak Gradient 17.6 mmHg AI Pressure Half Time 581.5 ms LVOT Peak Velocity 132.2 cm/s LVOT Peak Gradient 7.0 mmHg LVOT Velocity Time Integral 27.6 cm LVOT Stroke Volume 89.3 cm??? LVOT Stroke Volume Index 46.9 ml/m??? LVOT Cardiac Index 4371.6 cm???/min???m??? AV Area Cont Eq vti 3.4 cm??? AV Area Cont Eq pk 2.9 cm??? MV Peak Velocity 104.8 cm/s MV Peak Gradient 4.4 mmHg MV Mean Velocity 59.7 cm/s MV Mean Gradient 1.8 mmHg MV Velocity Time Integral 30.8 cm MR Peak Velocity 165.9 cm/s MR Peak Gradient 11.0 mmHg Mitral E Point Velocity 78.5 cm/s Mitral A Point Velocity 92.2 cm/s Mitral E to A Ratio 0.9 MV Deceleration Time 196.7 ms MV E' Velocity 6.2 cm/s Mitral E to MV E' Ratio 12.7 TR Peak Velocity 252.3 cm/s TR Peak Gradient 25.5 mmHg Right Ventricular Systolic Press 30.5 mmHg PV Peak Velocity 79.0 cm/s PV Peak Gradient 2.5 mmHg FINDINGS Left Ventricle Normal LV size and wall thickness. Left ventricular ejection fraction is estimated at 65 %. Right Ventricle Normal right ventricular size and function. RVSP= 30mmHg. Right Atrium Normal right atrial size. Left Atrium Normal left atrial size. Mitral Valve Structurally normal mitral valve. Aortic Valve Mild V calcification, Mild to moderate AI. No aortic stenosis. Tricuspid Valve Tricuspid valve not well visualized. Mild TR. Pulmonic Valve Pulmonic valve not well visualized. No pulmonic regurgitation. Pericardium There is a question of a small to medium anterior/apical pericardial effusuon. Aorta Normal size aortic root. CONCLUSIONS Technically difficult study. Poor quality Small LV cavity, LVEF 65% No obvious regional wall motion abnormality Moderate AI, may need repeat outpatient echocardiogram No pericardial effusion Previewed by: Dr Dano Murphy (Electronically Signed) Final Date: 02 November 2023 11:21
--- NOTE | 2023-11-02 13:27 | P.PN ---
Subjective Progress Note Date: 11/02/23 63-year-old female patient, came into the ED with difficulty breathing, nausea, and emesis. She was having intermittent nausea and emesis over the past several days along with sharp pain on the left side of the chestand this was pleuritic chest pain and this started 2 weeks ago She was also noticing some swelling in the right lower extremity. She has had previous history of pulmonary embolism 7 years ago in addition to a clot in her left lower extremity. Based on that, she came into the hospital concerned about those new symptoms. Noted the patient is not taking any form of anticoagulants at this point in time. She is known to have COPD, previous history of a right lower extremity DVT and pulmonary embolism back in 2014, she is also known to have migraines, osteoporosis, IBS,. In the ED, the patient was found to have a normal viral panel, the risperidone is at 7.2 with a hemoglobin of 12.4, normal electrolytes, troponin was negative, LFTs were normal, UA showed 27 WBCs. Doppler of the lower extremity showed a positive DVT in the distal femoral vein popliteal vein and proximal Vein and a CT angiogram showed acute bilateral pulmonary embolism with no evidence of any RV strain pattern. The patient had a clot at the main pulmonary artery bifurcation and most of the prominent embolism is in the left lower lobe. There is mild emphysema in the background. No suspicious acute p ulmonary abnormalities noted. At this point in time, the patient on room air oxygen. No significant tachycardia. She is normotensive. On a separate note, the patient was in the hospital back in October 2022. At that time, the patient had superior mesenteric artery syndrome and the patient was given a loop gastrojejunostomy back in 11/04/2022. On 11/01/2023, I'm seeing the patient for a follow-up. Doing well. No specific complaints. He remains on IV heparin. She is on room air oxygen. Still having some limited pleuritic pain in her left lung base. She is also encountering some nausea which is a chronic problem for this patient. Otherwise, no new complaints. White cell cause of 5.8 with a hemoglobin of 12.4. No bleeding complications. 11/02/2023, the patient is doing well. The patient is doing well and the patient is hemodynamically stable. No new complaints. The patient was taken off the IV heparin and the patient was switched to oral anticoagulation with Eliquis. Continues to have some pleuritic left-sided chest pain. No active GI symptoms. The patient has no active nausea or vomiting on today's evaluation. The white cell count of 5.8 with a hemoglobin 12.4. No other significant events overnight. The patient is hemodynamically stable and the patient is currently on room air oxygen. Echo of the heart was also done and the patient has a small LV cavity with an ejection fraction of 65%. Moderate aortic insufficiency. Right ventricle systolic pressure was around 30. Objective - Vital Signs Vital signs: Vital Signs Temp 98 F 11/01/23 20:00 Pulse 100 11/02/23 08:29 Resp 18 11/02/23 08:29 BP 126/88 11/02/23 08:29 Pulse Ox 95 11/02/23 08:29 FiO2 Intake & Output 11/01/23 11/02/23 11/02/23 18:59 06:59 18:59 Intake Total 105.683 540 225 Balance 105.683 540 225 Intake: Intake, IV Titration 105.683 Amount Heparin Sod,Pork in 0.45% 105.683 NaCl 25,000 unit In 0.45 % NaCl 1 250ml.bag @ 18 UNITS/KG/HR 14.533 mls/hr IV .[id number] [facility] Rx#: [id number] Oral 540 225 Other: Voiding Method Toilet # Voids 1 - Exam General appearance: alert, in no apparent distress, RA 02 and she is not having SOB or labored breathing Head exam: Present: atraumatic, normocephalic, normal inspection Respiratory exam: Present: normal lung sounds bilaterally. Absent: respiratory distress, wheezes, rales, rhonchi, stridor Cardiovascular Exam: Present: regular rate, normal rhythm, normal heart sounds. Absent: systolic murmur, diastolic murmur, rubs, gallop, clicks GI/Abdominal exam: Present: soft, normal bowel sounds. Absent: distended, tenderness, guarding, rebound, rigid Extremities exam: Present: other (Swelling, tenderness, and erythema to the right lower extremity.) Neurological exam: Present: alert, oriented X3, CN II-XII intact Psychiatric exam: Present: normal affect, normal mood - Labs CBC & Chem 7: 11/01/23 08:05 10/31/23 10:09 Labs: Microbiology - Last 24 Hours (Table) 10/31/23 13:45 Urine Culture - Preliminary Urine,Voided Gram Neg Bacilli 10/31/23 16:02 Blood Culture - Preliminary Blood 10/31/23 16:02 Blood Culture - Preliminary Blood Assessment and Plan Plan: Acute right lower extremity DVT and secondary pulmonary embolism. There is a recurrent event. The patient has had previous history of DVT and pulmonary embolism back in 2014. Noted the patient is not taking any form of anticoagulants. No RV strain pattern. No hemodynamic instability. No sinus tachycardia. Nevertheless, the patient is a large clot burden based on the CAT scan of the chest. Troponins are negative. Awaiting an echocardiogram evaluate for RV strain. Based on the CAT scan finding, no significant strain on the RV at this point in time. No significant hypoxemia and the patient is currently on room air oxygen Previous history of DVT and pulmonary embolism Aortic insufficiency moderate degree with moderate pulmonary hypertension with a PA pressure of around 30 COPD, currently inactive and stable Previous history of SMA syndrome post loop gastrojejunostomy Hyperlipidemia Osteoporosis Migraines IBS Plan Anticoagulation with Eliquis has been started Monitor the pleuritic chest pain Monitor oxygen flow to maintain saturation above 90%, currently on room air oxygen Provide the patient incentive spirometer and provide Tylenol for the pleuritic chest pain Echocardiogram was noted and is consistent with aortic insufficiency This will be a lifelong and the coagulation due to recurrent DVTs and pulmonary emboli We'll continue to follow
[2023-11-02] MEDS: DULoxetine HCL 30 MG CAPSULE.DR PO SCH (20:07)
[2023-11-02] MEDS: ALPRAZolam 0.25 MG TAB PO PRN (20:08)
--- NOTE | 2023-11-02 23:00 | P.PN ---
Progress Note - Text Progress Note Date: 11/02/23 Hospital course: I'm gone to Dr. Louie Baker. 11/01/2023: Laying in bed. Breathing better. Leg pain is better. Patient been feeling nauseated and vomited. Dilaudid discontinued as a concern this was causing the symptoms. Patient is IV heparin. To be swished over to eliquis today. Because of prior abdominal surgery and GI symptoms, will consult Dr. Barnes the patient is known 11/02/2023: Laying in bed. Feeling much better. Did sit up in a chair. 8 about 25%. Some improvement in nausea. Some left abnormal pain. Seen by Dr. Barnes. No further intervention. Active Medications Acetaminophen (Acetaminophen Tab 325 Mg Tab) 650 mg PO Q6HR PRN PRN Reason: Mild Pain or Fever > 100.5 Last Admin: 11/02/23 14:30 Dose: 650 mg Albuterol/Ipratropium (Ipratropium-Albuterol 3 Ml Neb) 3 ml INHALATION RT-QID [facility] Last Admin: 11/02/23 21:11 Dose: Not Given Alprazolam (Alprazolam 0.25 Mg Tab) 0.25 mg PO Q8H PRN PRN Reason: Anxiety Last Admin: 11/02/23 20:08 Dose: 0.25 mg Apixaban (Apixaban Initiation Dose--Vte 5 Mg Tab) 10 mg PO BID [facility]; Taper Stop: 12/01/23 08:59 Last Admin: 11/02/23 20:08 Dose: 10 mg Duloxetine HCl (Duloxetine Hcl 30 Mg Capsule.) 30 mg PO [facility] Last Admin: 11/02/23 20:07 Dose: 30 mg Metoclopramide HCl (Metoclopramide 5 Mg/Ml 2 Ml Vial) 10 mg IVP Q6HR PRN PRN Reason: Nausea Last Admin: 11/01/23 15:51 Dose: 10 mg Naloxone HCl (Naloxone 0.4 Mg/Ml 1 Ml Vial) 0.2 mg IV Q2M PRN PRN Reason: Opioid Reversal Nicotine (Nicotine 21mg/24hr Patch) 1 patch TRANSDERM DAILY [facility] Last Admin: 11/02/23 08:34 Dose: 1 patch Ondansetron HCl (Ondansetron 4 Mg/2 Ml Vial) 4 mg IVP Q8HR PRN PRN Reason: Nausea And Vomiting Last Admin: 11/02/23 16:06 Dose: 4 mg On examination: VITAL SIGNS: Afebrile, 100, 18, 126/88,, 95% room air GENERAL APPEARANCE: In bed, comfortable HEENT: Normal external appearance of nose and ear. Oral cavity normal EYES: Pupils equal. Conjunctiva normal. NECK: JVD not raised. Mass not palpable. RESPIRATORY: Respiratory effort normal. Lungs clear to auscultation. CARDIOVASCULAR: First and second sounds normal. No edema. ABDOMEN: Soft. Liver and spleen not palpable. I left upper abdominal tenderness tenderness-no guarding rigidity. No mass palpable. PSYCHIATRY: Alert and oriented x3. Mood and affect normal. INVESTIGATIONS, reviewed in the clinical context: November 01: White count 5.8 hemoglobin 12.4 platelets 189 Assessment and plan: -Acute right lower extremity DVT and secondary pulmonary embolism. recurrent event. previous history of DVT and pulmonary embolism back in 2014. Noted the patient is not taking any form of anticoagulants. No RV strain pattern. No hemodynamic instability. IV heparin. Started on eliquis today -IV heparin monitoring-discontinued Follow PTT Previous history of DVT and pulmonary embolism COPD, currently inactive and stable Previous history of SMA syndrome post loop gastrojejunostomy Has some left upper abdominal pain. Seen by Dr. Barnes. No further workup. Osteoporosis Migraines IBS Bipolar -Chronic nicotine dependence, cigarette smoker *Eliquis. Heparin discontinued. Increase activity.
[2023-11-03] MEDS: ALPRAZolam 0.25 MG TAB PO PRN ×3 (04:37→19:49)
[2023-11-03] MEDS: ONDANSETRON 4 MG/2 ML VIAL IVP PRN (04:37)
[2023-11-03] MEDS: Apixaban Initiation Dose--VTE 5 MG TAB PO SCH ×2 (08:29→19:49)
[2023-11-03] MEDS: NICOTINE 21MG/24HR PATCH TRANSDERM SCH (08:29)
[2023-11-03] MEDS: IPRATROPIUM-ALBUTEROL 3 ML NEB INHALATION SCH ×5 (08:37→21:50)
[2023-11-03] MEDS: ACETAMINOPHEN TAB 325 MG TAB PO PRN (12:04)
--- NOTE | 2023-11-03 14:25 | P.PN ---
Subjective Progress Note Date: 11/03/23 CHIEF COMPLAINT: Nausea HISTORY OF PRESENT ILLNESS: Patient reports that she's feeling better today. She is tolerating a regular diet. She had a small amount of nausea this morning but she was able to eat toast and shoes. She ate half the meatloaf last night. Patient reports she thinks she is being discharged today. Afebrile. WBC 5.8 PHYSICAL EXAM: VITAL SIGNS: Reviewed. GENERAL: Well-developed in no acute distress. ABDOMEN: Soft. Nondistended. Nontender. NEUROLOGIC: Alert and oriented. Cranial nerves II through XII grossly intact. ASSESSMENT: 1. Nausea improved 2. History of SMA syndrome status post surgical repair 3. Acute PE and DVT PLAN: -Continue regular diet. -Patient can be discharged from surgical standpoint when medically cleared Physician Loan Auditor note has been reviewed by physician. Signing provider agrees with the documented findings, assessment, and plan of care. Objective - Vital Signs Vital signs: Vital Signs Temp 97.8 F 11/03/23 08:00 Pulse 96 11/03/23 08:49 Resp 18 11/03/23 08:00 BP 140/73 11/03/23 08:00 Pulse Ox 97 11/03/23 08:00 FiO2 Intake & Output 11/02/23 11/03/23 11/03/23 18:59 06:59 18:59 Intake Total 225 360 Balance 225 360 Intake: Oral 225 360 Other: Voiding Method Toilet # Voids 1 - Labs CBC & Chem 7: 11/01/23 08:05 10/31/23 10:09 Labs: Microbiology - Last 24 Hours (Table) 10/31/23 13:45 Urine Culture - Final Urine,Voided Escherichia coli 10/31/23 16:02 Blood Culture - Preliminary Blood 10/31/23 16:02 Blood Culture - Preliminary Blood
--- NOTE | 2023-11-03 15:06 | P.PN ---
Subjective Progress Note Date: 11/03/23 Principal diagnosis: Acute right lower extremity DVT and pulmonary embolism 63-year-old female patient, came into the ED with difficulty breathing, nausea, and emesis. She was having intermittent nausea and emesis over the past several days along with sharp pain on the left side of the chestand this was pleuritic chest pain and this started 2 weeks ago She was also noticing some swelling in the right lower extremity. She has had previous history of pulmonary embolism 7 years ago in addition to a clot in her left lower extremity. Based on that, she came into the hospital concerned about those new symptoms. Noted the patient is not taking any form of anticoagulants at this point in time. She is known to have COPD, previous history of a right lower extremity DVT and pulmonary embolism back in 2014, she is also known to have migraines, osteoporosis, IBS,. In the ED, the patient was found to have a normal viral panel, the risperidone is at 7.2 with a hemoglobin of 12.4, normal electrolytes, troponin was negative, LFTs were normal, UA showed 27 WBCs. Doppler of the lower extremity showed a positive DVT in the distal femoral vein popliteal vein and proximal Vein and a CT angiogram showed acute bilateral pulmonary embolism with no evidence of any RV strain pattern. The patient had a clot at the main pulmonary artery bifurcation and most of the prominent embolism is in the left lower lobe. There is mild emphysema in the background. No suspicious acute pulmonary abnormalities noted. At this point in time, the patient on room air oxygen. No significant tachycardia. She is normotensive. On a separate note, the patient was in the hospital back in October 2022. At that time, the patient had superior mesenteric artery syndrome and the patient was given a loop gastrojejunostomy back in 11/04/2022. On 11/01/2023, I'm seeing the patient for a follow-up. Doing well. No specific complaints. He remains on IV heparin. She is on room air oxygen. Still having some limited pleuritic pain in her left lung base. She is also encountering some nausea which is a chronic problem for this patient. Otherwise, no new complaints. White cell cause of 5.8 with a hemoglobin of 12.4. No bleeding complications. 11/02/2023, the patient is doing well. The patient is doing well and the patient is hemodynamically stable. No new complaints. The patient was taken off the IV heparin and the patient was switched to oral anticoagulation with Eliquis. Continues to have some pleuritic left-sided chest pain. No active GI symptoms. The patient has no active nausea or vomiting on today's evaluation. The white cell count of 5.8 with a hemoglobin 12.4. No other significant events overnight. The patient is hemodynamically stable and the patient is currently on room air oxygen. Echo of the heart was also done and the patient has a small LV cavity with an ejection fraction of 65%. Moderate aortic insufficiency. Right ventricle systolic pressure was around 30. Reevaluated today on 11/03/23, patient is doing well, patient is now on eliquis, she is off heparin, continues to have some vague left-sided pleuritic chest pain, her GI symptoms have resolved, no nausea no vomiting no abdominal pain. She is hemodynamically stable, echocardiogram showed moderate aortic insufficiency and right-sided systolic pressures in the range of 30. No javier dence of RV strain. Objective - Vital Signs Vital signs: Vital Signs Temp 97.8 F 11/03/23 08:00 Pulse 96 11/03/23 08:49 Resp 18 11/03/23 08:00 BP 140/73 11/03/23 08:00 Pulse Ox 97 11/03/23 08:00 FiO2 Intake & Output 11/02/23 11/03/23 11/03/23 18:59 06:59 18:59 Intake Total 225 480 Balance 225 480 Intake: Oral 225 480 Other: Voiding Method Toilet # Voids 1 - Exam Physical Exam: Revealed a 63-year-old female pleasant in no distress. Head: Atraumatic normocephalic HEENT:[Neck is supple.] [No neck masses.] [No thyromegaly.] [No JVD.] Chest: [Clear throughout, no crackles, no rhonchi, no wheezes.] Cardiac Exam: [Normal S1 and S2, no S3 gallop, no murmur.] Abdomen: [Soft, nontender, no megaly, no rebound, no guarding, normal bowel sounds.] Extremities: [No clubbing, no edema, no cyanosis.] Neurological Exam: [No focal neurologic deficit.] Alert oriented 3 Psychiatric: Normal mood affect and normal mental status examination Skin: No rash - Labs CBC & Chem 7: 11/01/23 08:05 10/31/23 10:09 Labs: Microbiology - Last 24 Hours (Table) 10/31/23 13:45 Urine Culture - Final Urine,Voided Escherichia coli 10/31/23 16:02 Blood Culture - Preliminary Blood 10/31/23 16:02 Blood Culture - Preliminary Blood Assessment and Plan Assessment: Impression: Acute pulmonary embolism Acute DVT History of DVT and pulmonary embolism back in 2014, unprovoked, patient was supposed to stay on anticoagulation therapy back then, but for some reason her primary care physician decided to stop it. According to the patient. Aortic insufficiency with mild pulmonary hypertension History of SMA syndrome and loop gastrojejunostomy Dyslipidemia Irritable bowel syndrome Migraine cephalgia Osteoporosis Recommendation: Agree with transition into all her questions and she should be on eliquis lifetime Continue to monitor oxygenation Continue incentive spirometry Reviewed the results of her echocardiogram Lifelong anticoagulation therapy is strongly recommended Will clear the patient for discharge if cleared by other consultants I'll up on outpatient basis, I have seen this patient in the past, she could come back and see me in couple of weeks Time with Patient: Less than 30
[2023-11-03] MEDS: DULoxetine HCL 30 MG CAPSULE.DR PO SCH (19:50)
--- NOTE | 2023-11-04 04:31 | PN ---
PROGRESS NOTE SUBJECTIVE: The patient is lying in bed. Her leg pain is better. She is breathing better. Because of prior abdominal surgery and GI symptoms, Dr. Barnes was consulted for abdominal pain. Dr. Barnes did not recommend anything further for abdominal pain. She is on hypertension medications, anxiety medicines, apixaban for DVT and PE, duloxetine for chronic pain, Reglan for gastroparesis and nausea, nicotine patch for smoking. OBJECTIVE: VITAL SIGNS: Reviewed. O2 of 95% on room air, blood pressure 120s over 80s, respiratory rate 16 to 18, pulse of 100. GENERAL: She is comfortable. Alert and oriented x3. HEENT: Head normocephalic, atraumatic. Pupils equal, round, reactive. LUNGS: Decreased breath sounds x4. Scattered wheeze. HEART: S1, S2. EXTREMITIES: No edema. ABDOMEN: Left upper abdominal tenderness. No guarding or rigidity. LABORATORY DATA: Hemoglobin is 12.4, white count is 5.4. ASSESSMENT: Acute right lower extremity deep venous thrombosis and secondary pulmonary embolism, recurrent event from 2014. She is on Eliquis, heparin in the meantime. Deep venous thrombosis, pulmonary embolism, chronic obstructive pulmonary disease, continue current treatments. Previous history of superior mesenteric artery syndrome, post loop gastrojejunostomy, left upper abdominal pain cleared by Dr. Barnes, osteoporosis, migraines, irritable bowel syndrome, bipolar, chronic nicotine addiction, Eliquis to continue. She had echocardiogram also ordered. Echocardiogram shows ejection fraction 40% to 65%, which is good. RSVP 30. Prognosis guarded. Continue current treatment. MMODL / IJN: [id number] /
[2023-11-04] MEDS: IPRATROPIUM-ALBUTEROL 3 ML NEB INHALATION SCH ×2 (08:18→11:26)
[2023-11-04] MEDS: NICOTINE 21MG/24HR PATCH TRANSDERM SCH (09:09)
[2023-11-04] MEDS: Apixaban Initiation Dose--VTE 5 MG TAB PO SCH (09:10)
[2023-11-04] MEDS: ALPRAZolam 0.25 MG TAB PO PRN (09:10)
[2023-11-04] MEDS: ACETAMINOPHEN TAB 325 MG TAB PO PRN (09:10)
--- NOTE | 2023-11-04 11:51 | P.PN ---
Subjective Progress Note Date: 11/04/23 CHIEF COMPLAINT: Nausea HISTORY OF PRESENT ILLNESS: Patient reports she feels ready for discharge. Denies any abdominal pain. Denies any nausea or vomiting. Tolerating diet. Afebrile. PHYSICAL EXAM: VITAL SIGNS: Reviewed. GENERAL: Well-developed in no acute distress. ABDOMEN: Soft. Nondistended. Nontender. NEUROLOGIC: Alert and oriented. Cranial nerves II through XII grossly intact. ASSESSMENT: 1. Nausea improved 2. History of SMA syndrome status post surgical repair 3. Acute PE and DVT PLAN: -Continue regular diet -Patient can be discharged from surgical standpoint when medically cleared Physician Auto Seat Cover Installer note has been reviewed by physician. Signing provider agrees with the documented findings, assessment, and plan of care. Objective - Vital Signs Vital signs: Vital Signs Temp 98.4 F 11/04/23 11:42 Pulse 88 11/04/23 11:42 Resp 16 11/04/23 11:42 BP 121/68 11/04/23 11:42 Pulse Ox 97 11/04/23 11:42 FiO2 Intake & Output 11/03/23 11/04/23 11/04/23 18:59 06:59 18:59 Intake Total 600 602 Balance 600 602 Intake: Oral 600 602 Other: Voiding Method Toilet Toilet # Voids 1 - Labs CBC & Chem 7: 11/01/23 08:05 10/31/23 10:09 Labs: Microbiology - Last 24 Hours (Table) 10/31/23 16:02 Blood Culture - Preliminary Blood 10/31/23 16:02 Blood Culture - Preliminary Blood
[2023-11-04 12:06] VITALS: BP 121/68; PULSE 88; RESP 16; TEMP 98.4
--- NOTE | 2023-11-04 13:39 | P.PN ---
Subjective Progress Note Date: 11/04/23 Principal diagnosis: Acute right lower extremity DVT and pulmonary embolism 63-year-old female patient, came into the ED with difficulty breathing, nausea, and emesis. She was having intermittent nausea and emesis over the past several days along with sharp pain on the left side of the chestand this was pleuritic chest pain and this started 2 weeks ago She was also noticing some swelling in the right lower extremity. She has had previous history of pulmonary embolism 7 years ago in addition to a clot in her left lower extremity. Based on that, she came into the hospital concerned about those new symptoms. Noted the patient is not taking any form of anticoagulants at this point in time. She is known to have COPD, previous history of a right lower extremity DVT and pulmonary embolism back in 2014, she is also known to have migraines, osteoporosis, IBS,. In the ED, the patient was found to have a normal viral panel, the risperidone is at 7.2 with a hemoglobin of 12.4, normal electrolytes, troponin was negative, LFTs were normal, UA showed 27 WBCs. Doppler of the lower extremity showed a positive DVT in the distal femoral vein popliteal vein and proximal Vein and a CT angiogram showed acute bilateral pulmonary embolism with no evidence of any RV strain pattern. The patient had a clot at the main pulmonary artery bifurcation and most of the prominent embolism is in the left lower lobe. There is mild emphysema in the background. No suspicious acute pulmonary abnormalities noted. At this point in time, the patient on room air oxygen. No significant tachycardia. She is normotensive. On a separate note, the patient was in the hospital back in October 2022. At that time, the patient had superior mesenteric artery syndrome and the patient was given a loop gastrojejunostomy back in 11/04/2022. On 11/01/2023, I'm seeing the patient for a follow-up. Doing well. No specific complaints. He remains on IV heparin. She is on room air oxygen. Still having some limited pleuritic pain in her left lung base. She is also encountering some nausea which is a chronic problem for this patient. Otherwise, no new complaints. White cell cause of 5.8 with a hemoglobin of 12.4. No bleeding complications. 11/02/2023, the patient is doing well. The patient is doing well and the patient is hemodynamically stable. No new complaints. The patient was taken off the IV heparin and the patient was switched to oral anticoagulation with Eliquis. Continues to have some pleuritic left-sided chest pain. No active GI symptoms. The patient has no active nausea or vomiting on today's evaluation. The white cell count of 5.8 with a hemoglobin 12.4. No other significant events overnight. The patient is hemodynamically stable and the patient is currently on room air oxygen. Echo of the heart was also done and the patient has a small LV cavity with an ejection fraction of 65%. Moderate aortic insufficiency. Right ventricle systolic pressure was around 30. Reevaluated today on 11/03/23, patient is doing well, patient is now on eliquis, she is off heparin, continues to have some vague left-sided pleuritic chest pain, her GI symptoms have resolved, no nausea no vomiting no abdominal pain. She is hemodynamically stable, echocardiogram showed moderate aortic insufficiency and right-sided systolic pressures in the range of 30. No javier dence of RV strain. Patient was reevaluated today on 11/04/2023, doing well, she is now on Eliquis, off heparin, no specific complaints no cough no wheezing no shortness of breath, patient was cleared for discharge home. Awaiting for the primary care/admitting physician to discharge the patient home and follow-up on outpatient basis Objective - Vital Signs Vital signs: Vital Signs Temp 98.4 F 11/04/23 11:42 Pulse 88 11/04/23 11:42 Resp 16 11/04/23 11:42 BP 121/68 11/04/23 11:42 Pulse Ox 97 11/04/23 11:42 FiO2 Intake & Output 11/03/23 11/04/23 11/04/23 18:59 06:59 18:59 Intake Total 600 602 Balance 600 602 Intake: Oral 600 602 Other: Voiding Method Toilet Toilet # Voids 1 - Exam Physical Exam: Revealed a 63-year-old female pleasant in no distress. On room air Head: Atraumatic normocephalic HEENT:[Neck is supple.] [No neck masses.] [No thyromegaly.] [No JVD.] Chest: [Clear throughout, no crackles, no rhonchi, no wheezes.] Cardiac Exam: [Normal S1 and S2, no S3 gallop, no murmur.] Abdomen: [Soft, nontender, no megaly, no rebound, no guarding, normal bowel sounds.] Extremities: [No clubbing, no edema, no cyanosis.] Neurological Exam: [No focal neurologic deficit.] Alert oriented 3 Psychiatric: Normal mood affect and normal mental status examination Skin: No rash - Labs CBC & Chem 7: 11/01/23 08:05 10/31/23 10:09 Labs: Microbiology - Last 24 Hours (Table) 10/31/23 16:02 Blood Culture - Preliminary Blood 10/31/23 16:02 Blood Culture - Preliminary Blood Assessment and Plan Assessment: Impression: Acute pulmonary embolism Acute DVT History of DVT and pulmonary embolism back in 2014, unprovoked, patient was supposed to stay on anticoagulation therapy back then, but for some reason her primary care physician decided to stop it. According to the patient. Aortic insufficiency with mild pulmonary hypertension History of SMA syndrome and loop gastrojejunostomy Dyslipidemia Irritable bowel syndrome Migraine cephalgia Osteoporosis Recommendation: Continue eliquis No need for oxygen Continue incentive spirometry Lifelong anticoagulation therapy Will clear the patient for discharge Follow-up on outpatient basis Time with Patient: Less than 30
== END 2023-11-04 13:42 | disposition home or self-care (01) | DRG 299 ==
LOC: EC 10:04 → 3SCARD 14:48
PROVIDERS: ADMIT Family Medicine; ATTEND Family Medicine
DX: I82.411 Acute embolism and thrombosis of right femoral vein (principal); I26.99 Other pulmonary embolism without acute cor pulmonale; N39.0 Urinary tract infection, site not specified; I27.20 Pulmonary hypertension, unspecified; J43.9 Emphysema, unspecified; F10.21 Alcohol dependence, in remission; F20.9 Schizophrenia, unspecified; F31.9 Bipolar disorder, unspecified; I35.1 Nonrheumatic aortic (valve) insufficiency; I10 Essential (primary) hypertension; Z28.310 Unvaccinated for COVID-19; M81.0 Age-related osteoporosis without current pathological fracture; F41.9 Anxiety disorder, unspecified; K31.84 Gastroparesis; B96.20 Unspecified Escherichia coli [E. coli] as the cause of diseases classified elsewhere; E78.5 Hyperlipidemia, unspecified; G89.29 Other chronic pain; G43.909 Migraine, unspecified, not intractable, without status migrainosus; K21.9 Gastro-esophageal reflux disease without esophagitis; K58.9 Irritable bowel syndrome, unspecified; F17.210 Nicotine dependence, cigarettes, uncomplicated; Z79.899 Other long term (current) drug therapy; Z86.711 Personal history of pulmonary embolism; Z86.718 Personal history of other venous thrombosis and embolism; Z88.5 Allergy status to narcotic agent; Z88.8 Allergy status to other drugs, medicaments and biological substances; Z91.040 Latex allergy status
CPT/HCPCS: 36415; 71046; 71275; 80053; 81001; 82150; 83690; 83735; 83880; 84484; 85025; 85610; 85730; 87040; 87077; 87086; 87186; 87636; 93005; 93306; 94640; 96365; 96366; 96375; 99285

== ENCOUNTER 2023-11-28 11:10 | Emergency (ER) | payer MEDICARE ==
[2023-11-28 11:29] VITALS: RESP 18
--- NOTE | 2023-11-28 11:50 | ED ---
Abdominal Pain HPI - General Chief Complaint: Abdominal Pain Stated Complaint: ABD pain, hernia Time Seen by Provider: 11/28/23 11:21 Source: patient, RN notes reviewed Mode of arrival: ambulatory Limitations: no limitations - History of Present Illness Initial Comments: This is a 63-year-old female who presents to the emergency department for abdominal pain. Patient has a large abdominal hernia, and states that this has been increasing in size, particularly over the last 3-4 days. This is also becoming much more painful. She has not had what she would call a normal bowel movement in about 4 days. She did have a very small one this morning. She is still passing gas. Denies any nausea or vomiting. MD Complaint: abdominal pain - Related Data Home Medications Medication Instructions Recorded Confirmed DULoxetine HCL [Cymbalta] 30 mg PO HS 10/31/23 10/31/23 Previous Rx's Medication Instructions Recorded Apixaban Initiation Dose--VTE 10 mg PO BID 30 Days #60 tab 11/04/23 [Eliquis Initiation Dosing for VTE Treatment] Ipratropium-Albuterol Nebulize 3 ml INHALATION RT-QID 30 Days 11/04/23 [Duoneb 0.5 mg-3 mg/3 ml Soln] #120 each Nicotine 21Mg/24Hr Patch [Habitrol] 1 patch TRANSDERM DAILY 30 Days 11/04/23 #30 patch HYDROcodone/APAP 5-325MG [Strum 1 tab PO Q6HR PRN 3 Days #12 tab 11/28/23 5-325] Ibuprofen [Motrin] 800 mg PO Q8H PRN #20 tab 11/28/23 Allergies Allergy/AdvReac Type Severity Reaction Status Date / Time hydrogen peroxide Allergy rash and Verified 11/28/23 11:20 skin burn Latex, Natural Rubber Allergy Swelling Verified 11/28/23 11:20 metronidazole Allergy Unknown Verified 11/28/23 11:20 fentanyl AdvReac decreased Verified 11/28/23 11:20 bp isosorbide AdvReac Rapid Verified 11/28/23 11:20 Heart Rate Review of Systems ROS Statement: Those systems with pertinent positive or pertinent negative responses have been documented in the HPI. ROS Other: All systems not noted in ROS Statement are negative. Past Medical History Past Medical History: Chest Pain / Angina, COPD, Deep Vein Thrombosis (DVT), Eye Disorder, GERD/Reflux, Hyperlipidemia, Pneumonia, Pulmonary Embolus (PE), Syncope Additional Past Medical History / Comment(s): Chronic back and bilateral knee pain, DDD, cervical/back "nerve damage", "low BP", DVT right thigh, bilateral PEs in 2010 and 2015, migraines, osteoporosis, IBS, vertigo at times, R wrist 2 cysts, pt states since cataract surgery her vision has declined. History of Any Multi-Drug Resistant Organisms: None Reported Past Surgical History: Appendectomy, Cholecystectomy, Heart Catheterization Additional Past Surgical History / Comment(s): EGD/COLONOSCOPY/POLYPECTOMY- BENIGN, cardiac cath 06/10/16-normal, back/bilateral knee injections. epidural steroid inj -back, bilateral cataract removals/lens implants. Past Anesthesia/Blood Transfusion Reactions: No Reported Reaction Additional Past Anesthesia/Blood Transfusion Reaction / Comment(s): Pt has clausterphobia. Past Psychological History: Bipolar, Depression, Schizophrenia Smoking Status: Current every day smoker Past Alcohol Use History: None Reported Past Drug Use History: Marijuana - Past Family History Mother Family Medical History: Cancer, COPD, Hypertension Additional Family Medical History / Comment(s): Mother of LUNG CANCER at the age of 74yrs. Father Family Medical History: CVA/TIA, Hypertension Additional Family Medical History / Comment(s): Father had 2 CVAs and from the second one at the age of 52yrs. He was an alcoholic. General Exam Limitations: no limitations General appearance: alert, in no apparent distress Head exam: Present: atraumatic, normocephalic, normal inspection Respiratory exam: Present: normal lung sounds bilaterally. Absent: respiratory distress, wheezes, rales, rhonchi, stridor Cardiovascular Exam: Present: regular rate, normal rhythm, normal heart sounds. Absent: systolic murmur, diastolic murmur, rubs, gallop, clicks GI/Abdominal exam: Present: soft, normal bowel sounds, hernia Neurological exam: Present: alert, oriented X3, CN II-XII intact Psychiatric exam: Present: normal affect, normal mood Skin exam: Present: warm, dry, intact, normal color. Absent: rash Course Vital Signs 11/28/23 11/28/23 11:18 15:40 Temperature 97.6 F 98.0 F Pulse Rate 87 72 Respiratory 18 18 Rate Blood Pressure 102/65 132/69 O2 Sat by Pulse 98 96 Oximetry Medical Decision Making - Medical Decision Making This is a 63-year-old female who presents to the emergency department for abdominal pain. Was pt. sent in by a medical professional or institution? @ -No Did you speak to anyone other than the patient for history? @ -No Did you review nursing and triage notes? @ -Yes, and I agree, it is accurate with regards to the patient's symptoms. Were old charts reviewed? @ -No Differential Diagnosis? @ -Differential Abdominal Pain Women: Appendicitis, Cholecystitis, diverticulosis, ischemic bowel, pancreatitis, hepatitis, UTI, gastroenteritis, AAA, incarcerated hernia, bowel obstruction, constipation, inflammatory bowel, hepatitis, peptic ulcer disease, splenic infarction, perforated viscus, vulvitis, ovarian torsion, PID, kidney stone, placenta abruption, this is not meant to be an all-inclusive list EKG interpreted by me (3pts min.)? @ -EKG interpreted by me demonstrating the following: Sinus rhythm. Ventricular rate 68 bpm, MT interval 128 ms, QRS duration 84 ms, QTC 384 ms. X-rays interpreted by me (1pt min.)? @ -Not obtained CT interpreted by me (1pt min.)? @ -CT scan of the abdomen and pelvis obtained. My interpretation identifies no evidence of bowel wall thickening or free air. U/S interpreted by me (1pt. min.)? @ -Not obtained What testing was considered but not performed? (CT, X-rays, U/S, labs)? Why? @ -None What meds were considered but not given? Why? @ -None Did you discuss the management of the patient with other professionals? @ -No Did you reconcile home meds? @ -No Was smoking cessation discussed for >3mins.? @ -No Was critical care preformed (if so, how long)? @ -No Were there social determinants of health that impacted care today? How? (Homelessness, low income, unemployed, alcoholism, drug addiction, tra nsportation, low edu. Level, literacy, decrease access to med. care, half-way, rehab)? @ -No Was there de-escalation of care discussed even if they declined? (Discuss DNR or withdrawal of care, Hospice)? @ -No What co-morbidities impacted this encounter? (DM, HTN, Smoking, COPD, CAD, Cancer, CVA, Hep., AIDS, mental health diagnosis, sleep apnea, morbid obesity)? @ -Hernia Was patient admitted / discharged? @ -Discharged. Lab work obtained and found to be unremarkable. Computed tomography scan of the abdomen and pelvis obtained revealing diastases of the upper portion of the rectus with some protrusion of the fat that still appears to be covered by the peritoneum. This is where the patient's bulging was noted on exam. Pain controlled in the emergency department and she was discharged home in stable condition. Advised to follow-up with Dr. Barnes, who she states she is established with. Undiagnosed new problem with uncertain prognosis? @ -None Drug Therapy requiring intensive monitoring for toxicity (Heparin, Nitro, Insulin, Cardizem)? @ -None Were any procedures done? @ -None Diagnosis/symptom? @ -Abdominal pain Acute, or Chronic, or Acute on Chronic? @ -Acute Uncomplicated (without systemic symptoms) or Complicated (systemic symptoms)? @ -Uncomplicated Side effects of treatment? @ -None Exacerbation, Progression, or Severe Exacerbation] @ -Not applicable Poses a threat to life or bodily function? @ -No Return precautions reviewed in depth, the patient is instructed to return to the emergency department with any new, worsening, or concerning symptoms. Patient verbalized understanding. This case was discussed in detail with the attending ED physician, Dr. Smith. Presentation, findings, and treatment plan discussed in detail as well. - Lab Data Result diagrams: 11/28/23 11:39 11/28/23 11:39 Lab Results 11/28/23 11/28/23 11/28/23 Range/Units 11:39 11:39 11:39 WBC 5.5 (3.8-10.6) k/uL RBC 4.22 (3.80-5.40) m/uL Hgb 12.3 (11.4-16.0) gm/dL Hct 37.6 (34.0-46.0) % MCV 89.2 (80.0-100.0) fL MCH 29.1 (25.0-35.0) pg MCHC 32.6 (31.0-37.0) g/dL RDW 14.3 (11.5-15.5) % Plt Count 191 (150-450) k/uL MPV 8.6 Neutrophils % 54 % Lymphocytes % 35 % Monocytes % 5 % Eosinophils % 4 % Basophils % 1 % Neutrophils # 3.0 (1.3-7.7) k/uL Lymphocytes # 1.9 (1.0-4.8) k/uL Monocytes # 0.3 (0-1.0) k/uL Eosinophils # 0.2 (0-0.7) k/uL Basophils # 0.0 (0-0.2) k/uL Sodium 133 L (137-145) mmol/L Potassium 4.5 (3.5-5.1) mmol/L Chloride 107 (98-107) mmol/L Carbon Dioxide 25 (22-30) mmol/L Anion Gap 1 mmol/L BUN 8 (7-17) mg/dL Creatinine 0.81 (0.52-1.04) mg/dL Est GFR (CKD-EPI)AfAm >90 (>60 ml/min/1.73 sqM) Est GFR (CKD-EPI)NonAf 78 (>60 ml/min/1.73 sqM) Glucose 83 (74-99) mg/dL Plasma Lactic Acid Cheo 0.8 (0.7-2.0) mmol/L Calcium 8.9 (8.4-10.2) mg/dL Total Bilirubin 0.4 (0.2-1.3) mg/dL AST 19 (14-36) U/L ALT 12 (4-34) U/L Alkaline Phosphatase 108 (38-126) U/L Total Protein 5.9 L (6.3-8.2) g/dL Albumin 3.5 (3.5-5.0) g/dL Amylase 70 (30-110) U/L Lipase 75 (23-300) U/L Urine Color Urine Appearance (Clear) Urine pH (5.0-8.0) Ur Specific [place] (1.001-1.035) Urine Protein (Negative) Urine Glucose (UA) (Negative) Urine Ketones (Negative) Urine Blood (Negative) Urine Nitrite (Negative) Urine Bilirubin (Negative) Urine Urobilinogen (<2.0) mg/dL Ur Leukocyte Esterase (Negative) 11/28/23 Range/Units 12:47 WBC (3.8-10.6) k/uL RBC (3.80-5.40) m/uL Hgb (11.4-16.0) gm/dL Hct (34.0-46.0) % MCV (80.0-100.0) fL MCH (25.0-35.0) pg MCHC (31.0-37.0) g/dL RDW (11.5-15.5) % Plt Count (150-450) k/uL MPV Neutrophils % % Lymphocytes % % Monocytes % % Eosinophils % % Basophils % % Neutrophils # (1.3-7.7) k/uL Lymphocytes # (1.0-4.8) k/uL Monocytes # (0-1.0) k/uL Eosinophils # (0-0.7) k/uL Basophils # (0-0.2) k/uL Sodium (137-145) mmol/L Potassium (3.5-5.1) mmol/L Chloride (98-107) mmol/L Carbon Dioxide (22-30) mmol/L Anion Gap mmol/L BUN (7-17) mg/dL Creatinine (0.52-1.04) mg/dL Est GFR (CKD-EPI)AfAm (>60 ml/min/1.73 sqM) Est GFR (CKD-EPI)NonAf (>60 ml/min/1.73 sqM) Glucose (74-99) mg/dL Plasma Lactic Acid Cheo (0.7-2.0) mmol/L Calcium (8.4-10.2) mg/dL Total Bilirubin (0.2-1.3) mg/dL AST (14-36) U/L ALT (4-34) U/L Alkaline Phosphatase (38-126) U/L Total Protein (6.3-8.2) g/dL Albumin (3.5-5.0) g/dL Amylase (30-110) U/L Lipase (23-300) U/L Urine Color Light Yellow Urine Appearance Clear (Clear) Urine pH 6.0 (5.0-8.0) Ur Specific [place] 1.008 (1.001-1.035) Urine Protein Negative (Negative) Urine Glucose (UA) Negative (Negative) Urine Ketones Negative (Negative) Urine Blood Negative (Negative) Urine Nitrite Negative (Negative) Urine Bilirubin Negative (Negative) Urine Urobilinogen <2.0 (<2.0) mg/dL Ur Leukocyte Esterase Negative (Negative) - Radiology Data Radiology results: report reviewed, image reviewed Disposition Clinical Impression: Diastasis of rectus abdominis, Abdominal pain Disposition: HOME SELF-CARE Instructions (If sedation given, give patient instructions): Abdominal Pain (ED) Additional Instructions: Return to the emergency department with any new, worsening, or concerning symptoms. Alternate with ibuprofen and Tylenol as needed for pain relief. Take the Strum sparingly when your pain is the most severe and be aware that it may make you drowsy. Follow up with Dr. Barnes and with your primary care provider in 1-2 days. Prescriptions: Ibuprofen [Motrin] 800 mg PO Q8H PRN #20 tab PRN Reason: Pain HYDROcodone/APAP 5-325MG [Strum 5-325] 1 tab PO Q6HR PRN 3 Days #12 tab PRN Reason: Pain Is patient prescribed a controlled substance at d/c from ED?: Yes When asked, does pt state using other controlled substances?: No If prescribed controlled substance>3 days was MAPS reviewed?: Prescribed <3 Days Referrals: Louie Baker MD [Primary Care Provider] - 1-2 days Kade Barnes MD [STAFF PHYSICIAN] - 1-2 days Time of Disposition: 15:40
[2023-11-28 11:57] LABS: Basophils % (A) 1 %; Eosinophils # (A) 0.2 k/uL (0-0.7); Eosinophils % (A) 4 %; HCT 37.6 % (34.0-46.0); HGB 12.3 gm/dL (11.4-16.0); Lymphocytes # (A) 1.9 k/uL (1.0-4.8); Lymphocytes % (A) 35 %; MCH 29.1 pg (25.0-35.0); MCHC 32.6 g/dL (31.0-37.0); MCV 89.2 fL (80.0-100.0); Mean Platelet Volume 8.6; Monocytes # (A) 0.3 k/uL (0-1.0); Monocytes % (A) 5 %; Neutrophils % (A) 54 %; Platelet Count 191 k/uL (150-450); RBC 4.22 m/uL (3.80-5.40); RDW 14.3 % (11.5-15.5); WBC 5.5 k/uL (3.8-10.6)
[2023-11-28 12:09] LABS: ALT 12 U/L (4-34); AST 19 U/L (14-36); African American GFR (CKD) >90 (>60 ml/min/1.73 sqM); Albumin 3.5 g/dL (3.5-5.0); Alkaline Phosphatase 108 U/L (38-126); Amylase 70 U/L (30-110); Anion Gap 1 mmol/L; Blood Urea Nitrogen 8 mg/dL (7-17); Calcium 8.9 mg/dL (8.4-10.2); Carbon Dioxide 25 mmol/L (22-30); Chloride 107 mmol/L (98-107); Glucose 83 mg/dL (74-99); Lipase 75 U/L (23-300); Non-African American GFR(CKD) 78 (>60 ml/min/1.73 sqM); Potassium 4.5 mmol/L (3.5-5.1); Sodium 133 mmol/L (137-145); Total Bilirubin 0.4 mg/dL (0.2-1.3); Total Protein 5.9 g/dL (6.3-8.2)
[2023-11-28] MEDS: MORPHINE SULFATE 4 MG/ML SYRINGE IVP STA (12:52)
--- NOTE | 2023-11-28 12:52 | CT ---
EXAMINATION: CT ABDOMEN AND PELVIS WITH IV CONTRAST DATE OF EXAMINATION: 11/28/2023. COMPARISON: 10/31/2022.. INDICATION: Abdominal pain. PROCEDURE: Axial CT of the abdomen and pelvis was performed with contrast and sagittal and coronal reformatted images were performed. CT dose lowering techniques were used, to include: automated expos ure control, adjustment for patient size, and/or use of iterative reconstruction. 100 mL of Isovue-30 0 was given intravenously. FINDINGS: LOWER CHEST : There appears to be a band of atelectasis in the left lower lobe. The lung bases other griffin appear clear. There are no pleural or pericardial effusions. ABDOMEN: Liver and Biliary system: Normal. Adrenal glands: Normal. Kidneys and ureters: Normal. Spleen: Normal. Pancreas: Normal. Gallbladder: Absent. Lymph nodes, Peritoneum and mesentery: There is no mesenteric or retroperitoneal lymphadenopathy. Gastrointestinal tract: There are no dilated loops of bowel or free intraperitoneal air. There ap pears to be prior surgical changes within the distal stomach . Aorta/IVC: There is moderate vascular calcification to significant vascular calcification throughou t the abdominal aorta without evidence of aneurysmal dilation or dissection. IVC normal. Abdominal wall: Diastases of the upper portion of the rectus with some protrusion of the fat that st ill appears to be covered by the peritoneum.. PELVIS: Fluid: There is no free fluid in the pelvis. Lymph Nodes: There is no pelvic or inguinal lymphadenopathy.. Urinary bladder: Normal. BONES: There are no osseous destructive lesions.. ADDITIONAL SIGNIFICANT FINDINGS: None. IMPRESSION: 1. No acute findings seen within the abdomen or pelvis. 2. Additional findings as above.
[2023-11-28] MEDS: SODIUM CHLORIDE 0.9% 1,000 ML IV STA (12:53)
[2023-11-28] MEDS: KETOROLAC 15 MG/ML 1 ML VIAL IVP STA ×2 (12:53→15:36)
[2023-11-28 13:01] LABS: Appearance,Urine Clear (Clear); Bilirubin,Urine Negative (Negative); Blood,Urine Negative (Negative); Color,Urine Light Yellow; Glucose,Urine (UA) Negative (Negative); Ketones,Urine Negative (Negative); Leukocyte Esterase,Urine Negative (Negative); Nitrite,Urine Negative (Negative); Protein,Urine Negative (Negative); Specific Gravity,Urine 1.008 (1.001-1.035); Urobilinogen,Urine <2.0 mg/dL (<2.0)
[2023-11-28] MEDS: HYDROmorphone 1 MG/ML 1 ML SYRINGE IVP STA (15:35)
[2023-11-28 16:07] VITALS: BP 132/69; PULSE 72; TEMP 98
== END 2023-11-28 16:10 | disposition home or self-care (01) ==
LOC: EC 11:10
DX: M62.08 Separation of muscle (nontraumatic), other site (principal); J44.9 Chronic obstructive pulmonary disease, unspecified; F17.200 Nicotine dependence, unspecified, uncomplicated; F12.90 Cannabis use, unspecified, uncomplicated; Z86.59 Personal history of other mental and behavioral disorders; Z88.6 Allergy status to analgesic agent; Z88.8 Allergy status to other drugs, medicaments and biological substances; Z91.040 Latex allergy status; Z88.5 Allergy status to narcotic agent
CPT/HCPCS: 36415; 93005; 80053; 82150; 83605; 83690; 85025; 81003; 74177; 99285; 96374; 96375 ×2; 96376; 96361; J2270; J1170; J1885; Q9967

== ENCOUNTER 2024-01-28 09:59 | Emergency (ER) | payer MEDICARE ==
[2024-01-28 10:33] VITALS: RESP 18
--- NOTE | 2024-01-28 10:52 | ED ---
Fall HPI - General Chief Complaint: Fall Stated Complaint: Rib Pain Time Seen by Provider: 01/28/24 10:15 Source: patient, RN notes reviewed Mode of arrival: ambulatory - History of Present Illness Initial Comments: 63-year-old female on Eliquis presenting with right-sided rib pain status post mechanical fall 3 days ago. She states she was standing on a chair in her living room taking down a creatinine when she lost her balance and fell hitting the right side of her ribs on the chair on her way down to the ground. Denies hitting head, loss of consciousness. States since this incident she has been having right-sided rib pain and pain with inspiration. States she has some right eye tearing and blurriness however reports that this has been going on for 3 years and she is not having any new symptoms today. Denies tingling, weakness, numbness chest pain, shortness of breath. - Related Data Home Medications Medication Instructions Recorded Confirmed DULoxetine HCL [Cymbalta] 30 mg PO HS 10/31/23 10/31/23 Previous Rx's Medication Instructions Recorded Apixaban Initiation Dose--VTE 10 mg PO BID 30 Days #60 tab 11/04/23 [Eliquis Initiation Dosing for VTE Treatment] Ipratropium-Albuterol Nebulize 3 ml INHALATION RT-QID 30 Days 11/04/23 [Duoneb 0.5 mg-3 mg/3 ml Soln] #120 each Nicotine 21Mg/24Hr Patch [Habitrol] 1 patch TRANSDERM DAILY 30 Days 11/04/23 #30 patch HYDROcodone/APAP 5-325MG [[place] 1 tab PO Q6HR PRN 3 Days #12 tab 11/28/23 5-325] Ibuprofen [Motrin] 800 mg PO Q8H PRN #20 tab 11/28/23 Allergies Allergy/AdvReac Type Severity Reaction Status Date / Time hydrogen peroxide Allergy rash and Verified 01/28/24 10:05 skin burn Latex, Natural Rubber Allergy Swelling Verified 01/28/24 10:05 metronidazole Allergy Unknown Verified 01/28/24 10:05 fentanyl AdvReac decreased Verified 01/28/24 10:05 bp isosorbide AdvReac Rapid Verified 01/28/24 10:05 Heart Rate Review of Systems ROS Statement: Those systems with pertinent positive or pertinent negative responses have been documented in the HPI. ROS Other: All systems not noted in ROS Statement are negative. Past Medical History Past Medical History: Chest Pain / Angina, COPD, Deep Vein Thrombosis (DVT), Eye Disorder, GERD/Reflux, Hyperlipidemia, Pneumonia, Pulmonary Embolus (PE), Syncope Additional Past Medical History / Comment(s): Chronic back and bilateral knee pain, DDD, cervical/back "nerve damage", "low BP", DVT right thigh, bilateral PEs in 2010 and 2015, migraines, osteoporosis, IBS, vertigo at times, R wrist 2 cysts, pt states since cataract surgery her vision has declined. History of Any Multi-Drug Resistant Organisms: None Reported Past Surgical History: Appendectomy, Cholecystectomy, Heart Catheterization Additional Past Surgical History / Comment(s): EGD/COLONOSCOPY/POLYPECTOMY- BENIGN, cardiac cath 06/10/16-normal, back/bilateral knee injections. epidural steroid inj -back, bilateral cataract removals/lens implants. Past Anesthesia/Blood Transfusion Reactions: No Reported Reaction Additional Past Anesthesia/Blood Transfusion Reaction / Comment(s): Pt has clausterphobia. Past Psychological History: Bipolar, Depression, Schizophrenia Smoking Status: Current every day smoker Past Alcohol Use History: None Reported Past Drug Use History: Marijuana - Past Family History Mother Family Medical History: Cancer, COPD, Hypertension Additional Family Medical History / Comment(s): Mother of LUNG CANCER at the age of 74yrs. Father Family Medical History: CVA/TIA, Hypertension Additional Family Medical History / Comment(s): Father had 2 CVAs and from the second one at the age of 52yrs. He was an alcoholic. General Exam - General Exam Comments Initial Comments: Visual Physical Exam Vital signs reviewed General: Well-appearing, nontoxic, no acute distress. Head: Normocephalic, atraumatic Eyes: PERRLA, EOMI ENT: Airway patent Chest: Nonlabored breathing Skin: No visual rash, normal skin tone Neuro: Alert and oriented 3 Musculoskeletal: No gross abnormalities Limitations: no limitations General appearance: alert, in no apparent distress Head exam: Present: atraumatic, normocephalic, normal inspection Eye exam: Present: normal appearance, PERRL, EOMI. Absent: scleral icterus, conjunctival injection, periorbital swelling Pupils: Present: normal accommodation ENT exam: Present: normal exam, mucous membranes moist Respiratory exam: Present: normal lung sounds bilaterally, chest wall tenderness (Point tenderness along right rib cage. No bruising or skin changes.). Absent: respiratory distress, wheezes, rales, rhonchi, stridor Cardiovascular Exam: Present: regular rate, normal rhythm, normal heart sounds. Absent: systolic murmur, diastolic murmur, rubs, gallop, clicks GI/Abdominal exam: Present: soft, normal bowel sounds. Absent: distended, tenderness, guarding, rebound, rigid Neurological exam: Present: alert, oriented X3, CN II-XII intact Psychiatric exam: Present: normal affect, normal mood Skin exam: Present: warm, dry, intact, normal color. Absent: rash Course Vital Signs 01/28/24 01/28/24 10:02 12:18 Temperature 98.3 F 98.0 F Pulse Rate 111 H 84 Respiratory 18 18 Rate Blood Pressure 103/64 127/83 O2 Sat by Pulse 97 95 Oximetry Medical Decision Making - Medical Decision Making I completed the quick note portion of this chart signed Maile Loja PA-C Was pt. sent in by a medical professional or institution ([facility], SCHOOL SUPERINTENDENT, urgent care, hospital, or usp...) When possible be specific @ -No Did you speak to anyone other than the patient for history (EMS, parent, family, police, friend...)? What history was obtained from this source @ -No Did you review nursing and triage notes (agree or disagree)? Why? @ -I reviewed and agree with nursing and triage notes Were old charts reviewed (outside hosp., previous admission, EMS record, old EKG, old radiological studies, urgent care reports/EKG's, usp records)? Report findings @ -No old charts were reviewed Differential Diagnosis (chest pain, altered mental status, abdominal pain women, abdominal pain men, vaginal bleeding, weakness, fever, dyspnea, syncope, headache, dizziness, GI bleed, back pain, seizure, CVA, palpatations, mental health, musculoskeletal)? @ -Differential Musculoskeletal Muscular strain, contusion, ligament sprain, fracture, arthritis, septic arthritis, bursitis, cellulitis, muscle spasm, nerve compression, DVT, arterial occlusion, herpes zoster, electrolyte abnormality, tumor.... This is not meant to be in all inclusive list EKG interpreted by me (3pts min.). @ -None X-rays interpreted by me (1pt min.). @ -X-ray revealed no acute process CT interpreted by me (1pt min.). @ -None done U/S interpreted by me (1pt. min.). @ -None done What testing was considered but not performed or refused? (CT, X-rays, U/S, labs)? Why? @ -None What meds were considered but not given or refused? Why? @ -None Did you discuss the management of the patient with other professionals (professionals i.e. , PA, SCHOOL SUPERINTENDENT, lab, RT, psych nurse, social work supervisor, linemarker, teacher, systems support officer, case filler)? Give summary @ -No Was smoking cessation discussed for >3mins.? @ -No Was critical care preformed (if so, how long)? @ -No Were there social determinants of health that impacted care today? How? (Homelessness, low income, unemployed, alcoholism, drug addiction, transportation, low edu. Level, literacy, decrease access to med. care, nursing home, rehab)? @ -No Was there de-escalation of care discussed even if they declined (Discuss DNR or withdrawal of care, Hospice)? DNR status @ -No What co-morbidities impacted this encounter? (DM, HTN, Smoking, COPD, CAD, Cancer, CVA, ARF, Chemo, Hep., AIDS, mental health diagnosis, sleep apnea, morbid obesity)? @ -None Was patient admitted / discharged? Hospital course, mention meds given and route, prescriptions, significant lab abnormalities, going to OR and other pertinent info. @ -Patient was discharged. Patient was seen and evaluated for right rib pain s/p injury several days ago. No red flag symptoms. Vitals and examination unremarkable. X-ray revealed no acute process. Patient discharged in stable condition. Return symptoms discussed. Incentive spirometer given. Case discussed with Dr. Young Undiagnosed new problem with uncertain prognosis? @ -No Drug Therapy requiring intensive monitoring for toxicity (Heparin, Nitro, Insulin, Cardizem)? @ -No Were any procedures done? @ -No Diagnosis/symptom? @ -Right rib contusion Acute, or Chronic, or Acute on Chronic? @ -Acute Uncomplicated (without systemic symptoms) or Complicated (systemic symptoms)? @ -Uncomplicated Side effects of treatment? @ -No Exacerbation, Progression, or Severe Exacerbation? @ -No Poses a threat to life or bodily function? How? (Chest pain, [place], [place], pneumonia, PE, COPD, DKA, ARF, appy, cholecystitis, CVA, Diverticulitis, Homicidal, Suicidal, threat to staff... and all critical care pts) @ -No Disposition Clinical Impression: Contusion of rib on right side Disposition: HOME SELF-CARE Condition: Stable Instructions (If sedation given, give patient instructions): Rib Contusion (ED) Additional Instructions: Please return to the Emergency Department if symptoms worsen or any other concerns. Is patient prescribed a controlled substance at d/c from ED?: No Referrals: Louie Baker MD [Primary Care Provider] - 1-2 days Time of Disposition: 12:02
--- NOTE | 2024-01-28 11:42 | XR ---
EXAMINATION TYPE: XR ribs RT w pa chest xray DATE OF EXAM: 01/28/2024 CLINICAL HISTORY: Fall onto right sided ribs with pain. TECHNIQUE: Single frontal view of the chest is obtained. A frontal and oblique images of the right-si ded ribs. COMPARISON: Prior chest x-ray October 31, 2023. FINDINGS: There is no suspicious new focal air space opacity, pleural effusion, or pneumothorax seen . The cardiac silhouette size is stable and within normal limits. The osseous structures are intac t. Dedicated images of the right-sided ribs show no acute displaced fractures. Overlying soft tissue is unremarkable. IMPRESSION: 1. No acute cardiopulmonary process. 2. No acute displaced right-sided rib fractures.
[2024-01-28] MEDS: ACETAMINOPHEN TAB 325 MG TAB PO STA (12:02)
[2024-01-28 12:43] VITALS: BP 127/83; PULSE 84; TEMP 98
== END 2024-01-28 12:21 | disposition home or self-care (01) ==
LOC: EC 09:59
DX: S20.211A Contusion of right front wall of thorax, initial encounter (principal); F17.200 Nicotine dependence, unspecified, uncomplicated; Z91.040 Latex allergy status; Z88.5 Allergy status to narcotic agent; Z88.8 Allergy status to other drugs, medicaments and biological substances; W01.0XXA Fall on same level from slipping, tripping and stumbling without subsequent striking against object, initial encounter
CPT/HCPCS: 99284

== ENCOUNTER 2024-04-11 17:50 | Observation (INO) | payer MEDICARE ==
[2024-04-11] MEDS: ASPIRIN 81 MG PO STA (18:20)
[2024-04-11] MEDS: LORazepam 2 MG/ML INJ IV STA ×2 (18:21→23:32)
[2024-04-11] MEDS: SODIUM CHLORIDE 0.9% 500 ML 500 ML IV ONE (18:25)
[2024-04-11 18:26] LABS: Basophils % (A) 1 %; Eosinophils # (A) 0.2 k/uL (0-0.7); Eosinophils % (A) 3 %; HCT 41.3 % (34.0-46.0); HGB 13.7 gm/dL (11.4-16.0); Lymphocytes # (A) 2.2 k/uL (1.0-4.8); Lymphocytes % (A) 31 %; MCH 29.8 pg (25.0-35.0); MCHC 33.2 g/dL (31.0-37.0); MCV 89.8 fL (80.0-100.0); Mean Platelet Volume 9.7; Monocytes # (A) 0.3 k/uL (0-1.0); Monocytes % (A) 4 %; Neutrophils # (A) 4.2 k/uL (1.3-7.7); Neutrophils % (A) 60 %; Platelet Count 159 k/uL (150-450); RBC 4.59 m/uL (3.80-5.40); RDW 13.8 % (11.5-15.5)
--- NOTE | 2024-04-11 18:27 | ED ---
Anxiety HPI - General Chief Complaint: Anxiety Stated Complaint: Anxiety Time Seen by Provider: 04/11/24 17:59 Source: EMS Mode of arrival: EMS - History of Present Illness Initial Comments: 63-year-old female presenting with chief complaint of chest pain. Patient states for the last 3 days she has had intermittent chest pressure and palpitations. She states that at times it feels like her heart is beating very hard and very rapidly. States that the pressure was getting worse today while walking to the store. Patient has been cutting back on smoking, states that the last time she had a cigarette was last week. No shortness of breath. No lower extremity swelling. Patient is on Eliquis for previous DVT and pulmonary embolism, states that she has not been taking it as prescribed because she cannot afford it. She has been trying to space out her doses. No abdominal pain, nausea, vomiting. She has had a mild cough. No fevers. - Related Data Home Medications: Home Medications Medication Instructions Recorded Confirmed DULoxetine HCL [Cymbalta] 30 mg PO HS 10/31/23 10/31/23 Previous Rx's Medication Instructions Recorded Apixaban Initiation Dose--VTE 10 mg PO BID 30 Days #60 tab 11/04/23 [Eliquis Initiation Dosing for VTE Treatment] Ipratropium-Albuterol Nebulize 3 ml INHALATION RT-QID 30 Days 11/04/23 [Duoneb 0.5 mg-3 mg/3 ml Soln] #120 each Nicotine 21Mg/24Hr Patch [Habitrol] 1 patch TRANSDERM DAILY 30 Days 11/04/23 #30 patch HYDROcodone/APAP 5-325MG [[place] 1 tab PO Q6HR PRN 3 Days #12 tab 11/28/23 5-325] Ibuprofen [Motrin] 800 mg PO Q8H PRN #20 tab 11/28/23 Allergies/Adverse Reactions: Allergies Allergy/AdvReac Type Severity Reaction Status Date / Time hydrogen peroxide Allergy rash and Verified 01/28/24 10:05 skin burn Latex, Natural Rubber Allergy Swelling Verified 01/28/24 10:05 metronidazole Allergy Unknown Verified 01/28/24 10:05 fentanyl AdvReac decreased Verified 01/28/24 10:05 bp isosorbide AdvReac Rapid Verified 01/28/24 10:05 Heart Rate Review of Systems ROS Statement: Those systems with pertinent positive or pertinent negative responses have been documented in the HPI. ROS Other: All systems not noted in ROS Statement are negative. Past Medical History Past Medical History: Chest Pain / Angina, COPD, Deep Vein Thrombosis (DVT), Eye Disorder, GERD/Reflux, Hyperlipidemia, Pneumonia, Pulmonary Embolus (PE), Syncope Additional Past Medical History / Comment(s): Chronic back and bilateral knee pain, DDD, cervical/back "nerve damage", "low BP", DVT right thigh, bilateral PEs in 2010 and 2014, migraines, osteoporosis, IBS, vertigo at times, R wrist 2 cysts, pt states since cataract surgery her vision has declined. History of Any Multi-Drug Resistant Organisms: None Reported Past Surgical History: Appendectomy, Cholecystectomy, Heart Catheterization Additional Past Surgical History / Comment(s): EGD/COLONOSCOPY/POLYPECTOMY- BENIGN, cardiac cath 06/10/16-normal, back/bilateral knee injections. epidural steroid inj -back, bilateral cataract removals/lens implants. Past Anesthesia/Blood Transfusion Reactions: No Reported Reaction Additional Past Anesthesia/Blood Transfusion Reaction / Comment(s): Pt has clausterphobia. Past Psychological History: Bipolar, Depression, Schizophrenia Smoking Status: Current every day smoker Past Alcohol Use History: None Reported Past Drug Use History: Marijuana - Past Family History Mother Family Medical History: Cancer, COPD, Hypertension Additional Family Medical History / Comment(s): Mother of LUNG CANCER at the age of 74yrs. Father Family Medical History: CVA/TIA, Hypertension Additional Family Medical History / Comment(s): Father had 2 CVAs and from the second one at the age of 52yrs. He was an alcoholic. General Exam Limitations: no limitations General appearance: alert, in no apparent distress Head exam: Present: atraumatic, normocephalic Eye exam: Present: normal appearance, EOMI Neck exam: Present: normal inspection. Absent: meningismus Respiratory exam: Present: normal lung sounds bilaterally. Absent: respiratory distress, wheezes, rales, rhonchi, stridor Cardiovascular Exam: Present: normal rhythm, tachycardia, normal heart sounds. Absent: systolic murmur, diastolic murmur, rubs, gallop, clicks Extremities exam: Absent: pedal edema Neurological exam: Present: alert, oriented X3 Psychiatric exam: Present: normal affect, normal mood Skin exam: Present: warm, dry Course Vital Signs 04/11/24 04/11/24 04/11/24 17:56 17:58 21:59 Temperature 98.0 F Pulse Rate 110 H 80 Pulse Rate [ 110 H Remote Sensing Program Manager ] Respiratory 18 18 Rate Blood Pressure 143/71 121/63 O2 Sat by Pulse 95 97 Oximetry 04/11/24 04/11/24 22:00 23:28 Temperature Pulse Rate 94 67 Pulse Rate [ Remote Sensing Program Manager ] Respiratory 22 20 Rate Blood Pressure 100/65 98/73 O2 Sat by Pulse 97 98 Oximetry Medical Decision Making - Medical Decision Making Was pt. sent in by a medical professional or institution (, PA, CEMENT PAVER, urgent care, hospital, or alf...) When possible be specific @ -No Did you speak to anyone other than the patient for history (EMS, parent, family, police, friend...)? What history was obtained from this source @ -No Did you review nursing and triage notes (agree or disagree)? Why? @ -I reviewed and agree with nursing and triage notes Were old charts reviewed (outside hosp., previous admission, EMS record, old EKG, old radiological studies, urgent care reports/EKG's, alf records)? Report findings @ -No old charts were reviewed Differential Diagnosis (chest pain, altered mental status, abdominal pain women, abdominal pain men, vaginal bleeding, weakness, fever, dyspnea, syncope, h eadache, dizziness, GI bleed, back pain, seizure, CVA, palpatations, mental health, musculoskeletal)? @ -MDM Differential Chest Pain: Stable Angina, Unstable Angina, STEMI, NSTEMI Aortic Dissection, Pneumothorax, Musculoskeletal, Esophageal Spasm GERD, Cholecystitis, Pancreatitis, Zoster This is not meant to be an all-inclusive list. EKG interpreted by me (3pts min.). @ -EKG shows sinus rhythm ventricular rate 89. NH interval 146. QRS 93. QT 326. QTc 372. X-rays interpreted by me (1pt min.). @ -Chest x-ray shows no acute cardiopulmonary disease/process CT interpreted by me (1pt min.). @ -CTA shows no evidence for acute pulmonary embolism. Mild emphysematous change with scattered parenchymal scarring redemonstrated. No suspicious new acute pulmonary process U/S interpreted by me (1pt. min.). @ -None done What testing was considered but not performed or refused? (CT, X-rays, U/S, labs)? Why? @ -None What meds were considered but not given or refused? Why? @ -None Did you discuss the management of the patient with other professionals (professionals i.e. , PA, CEMENT PAVER, lab, RT, psych nurse, social worker aide, railroad car letterer, teacher, business banking officer, corrections caseworker)? Give summary @ -Spoke with Dr. Baker who accepted admission Was smoking cessation discussed for >3mins.? @ -No Was critical care preformed (if so, how long)? @ -No Were there social determinants of health that impacted care today? How? (Homelessness, low income, unemployed, alcoholism, drug addiction, tr ansportation, low edu. Level, literacy, decrease access to med. care, penitentiary, rehab)? @ -No Was there de-escalation of care discussed even if they declined (Discuss DNR or withdrawal of care, Hospice)? DNR status @ -No What co-morbidities impacted this encounter? (DM, HTN, Smoking, COPD, CAD, Cancer, CVA, ARF, Chemo, Hep., AIDS, mental health diagnosis, sleep apnea, morbid obesity)? @ -None Was patient admitted / discharged? Hospital course, mention meds given and route, prescriptions, significant lab abnormalities, going to OR and other pertinent info. @ -63-year-old female presenting with chief complaint of chest pain and palpitations. History and physical exam are conducted. EKG shows no ST deviation. Negative troponin. D-dimer 0.63, CTA shows no evidence of pulmonary embolism. Patient does admit to history of anxiety and did require medication for anxiety while in our department. Given the patient's chest pain and her recent noncompliance with her anticoagulants she will be admitted for observation. She is agreeable with this plan. I discussed this case with my attending Dr. Ross Undiagnosed new problem with uncertain prognosis? @ -No Drug Therapy requiring intensive monitoring for toxicity (Heparin, Nitro, Insulin, Cardizem)? @ -No Were any procedures done? @ -No Diagnosis/symptom? @ -Chest pain Acute, or Chronic, or Acute on Chronic? @ -Acute Uncomplicated (without systemic symptoms) or Complicated (systemic symptoms)? @ -Complicated Side effects of treatment? @ -No Exacerbation, Progression, or Severe Exacerbation? @ -No Poses a threat to life or bodily function? How? (Chest pain, [place], [place], pneumonia, PE, COPD, DKA, ARF, appy, cholecystitis, CVA, Diverticulitis, Homicidal, Suicidal, threat to staff... and all critical care pts) @ -Yes - Lab Data Result diagrams: 04/11/24 18:10 04/11/24 18:10 Lab Results 04/11/24 04/11/24 04/11/24 Range/Units 18:10 18:10 18:10 WBC 7.0 (3.8-10.6) k/uL RBC 4.59 (3.80-5.40) m/uL Hgb 13.7 (11.4-16.0) gm/dL Hct 41.3 (34.0-46.0) % MCV 89.8 (80.0-100.0) fL MCH 29.8 (25.0-35.0) pg MCHC 33.2 (31.0-37.0) g/dL RDW 13.8 (11.5-15.5) % Plt Count 159 (150-450) k/uL MPV 9.7 Neutrophils % 60 % Lymphocytes % 31 % Monocytes % 4 % Eosinophils % 3 % Basophils % 1 % Neutrophils # 4.2 (1.3-7.7) k/uL Lymphocytes # 2.2 (1.0-4.8) k/uL Monocytes # 0.3 (0-1.0) k/uL Eosinophils # 0.2 (0-0.7) k/uL Basophils # 0.0 (0-0.2) k/uL PT 9.9 L (10.0-12.5) sec INR 0.9 (<1.2) APTT 22.4 (22.0-30.0) sec D-Dimer (<0.60) mg/L FEU Sodium 134 L (137-145) mmol/L Potassium 3.2 L (3.5-5.1) mmol/L Chloride 106 (98-107) mmol/L Carbon Dioxide 21 L (22-30) mmol/L Anion Gap 7 mmol/L BUN 17 (7-17) mg/dL Creatinine 0.75 (0.52-1.04) mg/dL Est GFR (CKD-EPI)AfAm >90 (>60 ml/min/1.73 sqM) Est GFR (CKD-EPI)NonAf 85 (>60 ml/min/1.73 sqM) Glucose 118 H (74-99) mg/dL Calcium 9.0 (8.4-10.2) mg/dL Magnesium 1.8 (1.6-2.3) mg/dL Total Bilirubin 0.4 (0.2-1.3) mg/dL AST 19 (14-36) U/L ALT 15 (4-34) U/L Alkaline Phosphatase 88 (38-126) U/L Troponin I (0.000-0.034) ng/mL NT-Pro-B Natriuret Pep 44 pg/mL Total Protein 5.9 L (6.3-8.2) g/dL Albumin 3.7 (3.5-5.0) g/dL TSH 1.540 (0.465-4.680) mIU/L Urine Color Urine Appearance (Clear) Urine pH (5.0-8.0) Ur Specific [place] (1.001-1.035) Urine Protein (Negative) Urine Glucose (UA) (Negative) Urine Ketones (Negative) Urine Blood (Negative) Urine Nitrite (Negative) Urine Bilirubin (Negative) Urine Urobilinogen (<2.0) mg/dL Ur Leukocyte Esterase (Negative) Urine RBC (0-5) /hpf Urine WBC (0-5) /hpf Ur Squamous Epith Cells (0-4) /hpf Urine Bacteria (None) /hpf Hyaline Casts (0-2) /lpf Urine Mucus (None) /hpf Influenza Type A (PCR) (Not Detectd) Influenza Type B (PCR) (Not Detectd) RSV (PCR) (Not Detectd) SARS-CoV-2 (PCR) (Not Detectd) 04/11/24 04/11/24 04/11/24 Range/Units 18:10 18:10 20:28 WBC (3.8-10.6) k/uL RBC (3.80-5.40) m/uL Hgb (11.4-16.0) gm/dL Hct (34.0-46.0) % MCV (80.0-100.0) fL MCH (25.0-35.0) pg MCHC (31.0-37.0) g/dL RDW (11.5-15.5) % Plt Count (150-450) k/uL MPV Neutrophils % % Lymphocytes % % Monocytes % % Eosinophils % % Basophils % % Neutrophils # (1.3-7.7) k/uL Lymphocytes # (1.0-4.8) k/uL Monocytes # (0-1.0) k/uL Eosinophils # (0-0.7) k/uL Basophils # (0-0.2) k/uL PT (10.0-12.5) sec INR (<1.2) APTT (22.0-30.0) sec D-Dimer 0.63 H (<0.60) mg/L FEU Sodium (137-145) mmol/L Potassium (3.5-5.1) mmol/L Chloride (98-107) mmol/L Carbon Dioxide (22-30) mmol/L Anion Gap mmol/L BUN (7-17) mg/dL Creatinine (0.52-1.04) mg/dL Est GFR (CKD-EPI)AfAm (>60 ml/min/1.73 sqM) Est GFR (CKD-EPI)NonAf (>60 ml/min/1.73 sqM) Glucose (74-99) mg/dL Calcium (8.4-10.2) mg/dL Magnesium (1.6-2.3) mg/dL Total Bilirubin (0.2-1.3) mg/dL AST (14-36) U/L ALT (4-34) U/L Alkaline Phosphatase (38-126) U/L Troponin I <0.012 (0.000-0.034) ng/mL NT-Pro-B Natriuret Pep pg/mL Total Protein (6.3-8.2) g/dL Albumin (3.5-5.0) g/dL TSH (0.465-4.680) mIU/L Urine Color Yellow Urine Appearance Clear (Clear) Urine pH 6.0 (5.0-8.0) Ur Specific [place] 1.018 (1.001-1.035) Urine Protein Negative (Negative) Urine Glucose (UA) Negative (Negative) Urine Ketones 1+ H (Negative) Urine Blood Negative (Negative) Urine Nitrite Negative (Negative) Urine Bilirubin Negative (Negative) Urine Urobilinogen <2.0 (<2.0) mg/dL Ur Leukocyte Esterase Large H (Negative) Urine RBC 4 (0-5) /hpf Urine WBC 9 H (0-5) /hpf Ur Squamous Epith Cells 2 (0-4) /hpf Urine Bacteria Occasional H (None) /hpf Hyaline Casts 5 H (0-2) /lpf Urine Mucus Few H (None) /hpf Influenza Type A (PCR) (Not Detectd) Influenza Type B (PCR) (Not Detectd) RSV (PCR) (Not Detectd) SARS-CoV-2 (PCR) (Not Detectd) 04/11/24 Range/Units 20:28 WBC (3.8-10.6) k/uL RBC (3.80-5.40) m/uL Hgb (11.4-16.0) gm/dL Hct (34.0-46.0) % MCV (80.0-100.0) fL MCH (25.0-35.0) pg MCHC (31.0-37.0) g/dL RDW (11.5-15.5) % Plt Count (150-450) k/uL MPV Neutrophils % % Lymphocytes % % Monocytes % % Eosinophils % % Basophils % % Neutrophils # (1.3-7.7) k/uL Lymphocytes # (1.0-4.8) k/uL Monocytes # (0-1.0) k/uL Eosinophils # (0-0.7) k/uL Basophils # (0-0.2) k/uL PT (10.0-12.5) sec INR (<1.2) APTT (22.0-30.0) sec D-Dimer (<0.60) mg/L FEU Sodium (137-145) mmol/L Potassium (3.5-5.1) mmol/L Chloride (98-107) mmol/L Carbon Dioxide (22-30) mmol/L Anion Gap mmol/L BUN (7-17) mg/dL Creatinine (0.52-1.04) mg/dL Est GFR (CKD-EPI)AfAm (>60 ml/min/1.73 sqM) Est GFR (CKD-EPI)NonAf (>60 ml/min/1.73 sqM) Glucose (74-99) mg/dL Calcium (8.4-10.2) mg/dL Magnesium (1.6-2.3) mg/dL Total Bilirubin (0.2-1.3) mg/dL AST (14-36) U/L ALT (4-34) U/L Alkaline Phosphatase (38-126) U/L Troponin I (0.000-0.034) ng/mL NT-Pro-B Natriuret Pep pg/mL Total Protein (6.3-8.2) g/dL Albumin (3.5-5.0) g/dL TSH (0.465-4.680) mIU/L Urine Color Urine Appearance (Clear) Urine pH (5.0-8.0) Ur Specific [place] (1.001-1.035) Urine Protein (Negative) Urine Glucose (UA) (Negative) Urine Ketones (Negative) Urine Blood (Negative) Urine Nitrite (Negative) Urine Bilirubin (Negative) Urine Urobilinogen (<2.0) mg/dL Ur Leukocyte Esterase (Negative) Urine RBC (0-5) /hpf Urine WBC (0-5) /hpf Ur Squamous Epith Cells (0-4) /hpf Urine Bacteria (None) /hpf Hyaline Casts (0-2) /lpf Urine Mucus (None) /hpf Influenza Type A (PCR) Not Detected (Not Detectd) Influenza Type B (PCR) Not Detected (Not Detectd) RSV (PCR) Not Detected (Not Detectd) SARS-CoV-2 (PCR) Not Detected (Not Detectd) Disposition Clinical Impression: Chest pain Disposition: ADMITTED IP TO THIS [facility] Condition: Fair Time of Disposition: 23:11
[2024-04-11 18:36] LABS: INR 0.9 (<1.2); Partial Thromboplastin Time 22.4 sec (22.0-30.0); Prothrombin Time 9.9 sec (10.0-12.5)
[2024-04-11 18:38] LABS: ALT 15 U/L (4-34); AST 19 U/L (14-36); African American GFR (CKD) >90 (>60 ml/min/1.73 sqM); Albumin 3.7 g/dL (3.5-5.0); Alkaline Phosphatase 88 U/L (38-126); Anion Gap 7 mmol/L; Blood Urea Nitrogen 17 mg/dL (7-17); Carbon Dioxide 21 mmol/L (22-30); Chloride 106 mmol/L (98-107); Glucose 118 mg/dL (74-99); Magnesium 1.8 mg/dL (1.6-2.3); Non-African American GFR(CKD) 85 (>60 ml/min/1.73 sqM); Potassium 3.2 mmol/L (3.5-5.1); Sodium 134 mmol/L (137-145); Total Bilirubin 0.4 mg/dL (0.2-1.3); Total Protein 5.9 g/dL (6.3-8.2)
[2024-04-11 18:47] LABS: NT-Pro-B-Type Natriuretic Pept 44 pg/mL
--- NOTE | 2024-04-11 18:50 | XR ---
EXAMINATION TYPE: XR chest 2V DATE OF EXAM: 04/11/2024 6:33 PM CLINICAL INDICATION:Female, 63 years old with history of Chest Pain; [facility] COMPARISON: Chest radiographs from 01/28/2024 TECHNIQUE: XR chest 2V Frontal and lateral views of the chest. FINDINGS: Lungs/Pleura: There is no evidence of pleural effusion, focal consolidation, or pneumothorax. Pulmonary vascularity: Unremarkable. Heart/mediastinum: Cardiomediastinal silhouette is unremarkable. Musculoskeletal: No acute osseous pathology. IMPRESSION: No acute cardiopulmonary disease/process.
[2024-04-11] MEDS: ACETAMINOPHEN TAB 500 MG TAB PO STA (20:40)
[2024-04-11] MEDS: POTASSIUM CHLORIDE ER 20 MEQ TAB.ER PO STA (20:41)
[2024-04-11 21:46] LABS: Appearance,Urine Clear (Clear); Bacteria,Urine Occasional /hpf; Bilirubin,Urine Negative (Negative); Blood,Urine Negative (Negative); Color,Urine Yellow; Glucose,Urine (UA) Negative (Negative); Hyaline Casts,Urine 5 /lpf (0-2); Ketones,Urine 1+ (Negative); Leukocyte Esterase,Urine Large (Negative); Mucus,Urine Few /hpf; Nitrite,Urine Negative (Negative); Protein,Urine Negative (Negative); RBC,Urine 4 /hpf (0-5); Specific Gravity,Urine 1.018 (1.001-1.035); Squamous Epithelial Cell,Urine 2 /hpf (0-4); Urobilinogen,Urine <2.0 mg/dL (<2.0); WBC,Urine 9 /hpf (0-5)
[2024-04-11] MEDS: ONDANSETRON 4 MG/2 ML VIAL IVP STA (22:31)
--- NOTE | 2024-04-11 22:34 | CT ---
EXAMINATION TYPE: CT chest angio for PE DATE OF EXAM: 04/11/2024 COMPARISON: Prior CT chest October 31, 2023 HISTORY: Pt c/o anxiety and chest pain. HX OF PE, PNEUMONIA, HEART CATH CT DLP: 273.2 mGycm. Automated Exposure Control for Dose Reduction was Utilized. CONTRAST: CTA scan of the thorax is performed with IV Contrast, patient injected with 100 mL of Isovue 370, pul monary embolism protocol. MIP Images are created on CT scanner and reviewed. FINDINGS: LUNGS: Mild bilateral upper lung emphysematous change with mild right apical nodular scarring axial i mage 22 having similar appearance to prior. Persistent mild lateral left basilar linear scarring. No new focal consolidation. No pleural effusion or pneumothorax seen bilaterally. MEDIASTINUM: There is satisfactory enhancement of the pulmonary artery and its branches, there is no CT evidence for pulmonary embolism. Enhancement of the aorta without aneurysm or dissection. There ar e no greater than 1 cm hilar or mediastinal lymph nodes. Stable small dependent pericardial effusion is seen. No cardiomegaly. OTHER: Focal eventration of the midline of the anterior upper abdominal wall redemonstrated. Slight s coliotic curvature. IMPRESSION: 1. No CT evidence for acute pulmonary embolism. 2. Mild emphysematous change with scattered parenchymal scarring redemonstrated. No suspicious new ac jere pulmonary process.
[2024-04-11] MEDS ORDERED: NALOXONE 0.4 MG/ML 1 ML VIAL IV PRN (23:23)
[2024-04-11] MEDS: SODIUM CHLORIDE 0.9% 1,000 ML IV SCH (23:31)
[2024-04-12] MEDS ORDERED: DOBUTamine DRIP for NUC MED 500 MG in DEXTROSE/WATER 1 250ML.BAG IV PRN (07:53)
--- NOTE | 2024-04-12 09:17 | P.CRDCN ---
History of Present Illness History of present illness: HISTORY OF PRESENT ILLNESS: This is a 63-year-old female with a past medical history significant for TIA, DVT/PE, bipolar disorder, depression, marijuana use, and former nicotine dependence. 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 We have been asked to see the patient in consultation for chest pain. Patient examined at the bedside. Patient presented to the hospital with a chief complaint of feeling her heart pounding/racing. She also reports feeling mild shortness of breath. She states this has been going on for the past few days. She also reports having an episode of chest tightness yesterday that started while she was sitting in the chair. She denies worsening chest pain with exertion. She does report some dizziness but denies any syncopal episodes at home. At the time of examination she denies any chest pain, shortness of breath, or palpitations. Patient states that she used to be at 2 pack-a-day smoker up until about 5 weeks ago she quit smoking. She does report marijuana use. DIAGNOSTICS: - EKG reveals sinus mechanism with no signs of acute ischemia. - Chest xray negative for acute process. - Chest CTA: Negative for pulmonary embolism. Mild emphysematous changes with scattered parenchymal scarring redemonstrated. No suspicious no acute pulmonary process - Laboratory data: WBC 7.0. Hemoglobin 13.7. Platelet count 159. D-dimer 0.63. Sodium 134. Potassium 3.2. BUN 17. Creatinine 0.75. Troponin negative x 3. proBNP 44. TSH 1.540. - Current home cardiac medications include Eliquis 5 mg twice a day and aspirin 81 mg daily. - Most recent echocardiogram obtained in October 2023 revealed ejection fraction 65%, mild to moderate AI, mild TR -Patient underwent dobutamine stress echo in October 2022 which was negative for ischemia - Cardiac catheterization history: May 2016 revealing normal coronary arteries. The distal half of the LAD is small caliber which improved with nitroglycerin and suggestive of spasm. REVIEW OF SYSTEMS: At the time of my exam: CONSTITUTIONAL: Denies fever or chills. HEENT: Denies blurred vision, vision changes, or eye pain. Denies hemoptysis CARDIOVASCULAR: Denies chest pain. Denies orthopnea. Denies PND. Denies palpitations RESPIRATORY: Denies shortness of breath. GASTROINTESTINAL: Denies abdominal pain. Denies nausea or vomiting. HEMATOLOGIC: Denies bleeding disorders. GENITOURINARY: Denies any blood in urine. SKIN: Denies pruitis. Denies rash. PHYSICAL EXAM: VITAL SIGNS: Reviewed. GENERAL: Well-developed in no acute distress. HEENT: Head is normocephalic. Pupils are equal, round. Sclerae anicteric. Mucous membranes of the mouth are moist. Neck supple. No JVD or thyromegaly LUNGS: Respirations even and unlabored. Lungs essentially clear to auscultation bilaterally. HEART: Regular rate and rhythm. S1 and S2 heard. S4 noted ABDOMEN: Soft. Nondistended. Nontender. EXTREMITIES: Normal range of motion. No clubbing or cyanosis. Peripheral pulses intact. No lower extremity edema NEUROLOGIC: Awake and alert. Oriented x 3. ASSESSMENT: Chest pain, troponin negative x 3 History of TIA History of DVT/PE, on [facility] outpatient Bipolar disorder History of depression Marijuana use Former nicotine dependence, patient was a 2 pack/day smoker, quit 5 weeks ago PLAN: An acute coronary but has been ruled out No need to repeat echocardiogram as this was performed in October of this year Resume home cardiac medications Patient to undergo dobutamine stress test today If negative, she may be discharged home from a cardiac standpoint Encouraged continued nicotine cessation Further recommendations pending patient course Nurse practitioner note has been reviewed by physician. Signing provider agrees with the documented findings, assessment, and plan of care documented by FACETER as a scribe. Past Medical History Past Medical History: Chest Pain / Angina, COPD, Deep Vein Thrombosis (DVT), Eye Disorder, GERD/Reflux, Hyperlipidemia, Pneumonia, Pulmonary Embolus (PE), Syncope Additional Past Medical History / Comment(s): Chronic back and bilateral knee pain, DDD, cervical/back "nerve damage", "low BP", DVT right thigh, bilateral PEs in 2010 and 2014, migraines, osteoporosis, IBS, vertigo at times, R wrist 2 cysts, pt states since cataract surgery her vision has declined. History of Any Multi-Drug Resistant Organisms: None Reported Past Surgical History: Appendectomy, Cholecystectomy, Heart Catheterization Additional Past Surgical History / Comment(s): EGD/COLONOSCOPY/POLYPECTOMY- BENIGN, cardiac cath 06/10/16-normal, back/bilateral knee injections. epidural steroid inj -back, bilateral cataract removals/lens implants. Past Anesthesia/Blood Transfusion Reactions: No Reported Reaction Additional Past Anesthesia/Blood Transfusion Reaction / Comment(s): Pt has clausterphobia. Past Psychological History: Bipolar, Depression, Schizophrenia Smoking Status: Current every day smoker Past Alcohol Use History: None Reported Past Drug Use History: Marijuana - Past Family History Mother Family Medical History: Cancer, COPD, Hypertension Additional Family Medical History / Comment(s): Mother of LUNG CANCER at the age of 74yrs. Father Family Medical History: CVA/TIA, Hypertension Additional Family Medical History / Comment(s): Father had 2 CVAs and from the second one at the age of 52yrs. He was an alcoholic. Medications and Allergies Home Medications Medication Instructions Recorded Confirmed Type DULoxetine HCL [Cymbalta] 30 mg PO HS 10/31/23 04/12/24 History Apixaban [Eliquis] 5 mg PO BID 04/12/24 04/12/24 History Aspirin 81 mg PO DAILY 04/12/24 04/12/24 History Allergies Allergy/AdvReac Type Severity Reaction Status Date / Time hydrogen peroxide Allergy rash and Verified 04/12/24 07:48 skin burn Latex, Natural Rubber Allergy Swelling Verified 04/12/24 07:48 metronidazole Allergy Unknown Verified 04/12/24 07:48 fentanyl AdvReac decreased Verified 04/12/24 07:48 bp isosorbide AdvReac Rapid Verified 04/12/24 07:48 Heart Rate Physical Exam Vitals: Vital Signs Temp Pulse Pulse Resp BP BP Pulse Ox 04/12/24 07:00 98.4 F 80 15 112/71 96 04/12/24 02:26 98.0 F 72 16 114/74 98 04/12/24 01:51 73 04/12/24 00:44 98.4 F 109 H 19 122/72 94 L 04/11/24 23:28 67 20 98/73 98 04/11/24 22:00 94 22 100/65 97 04/11/24 21:59 80 18 121/63 97 04/11/24 17:58 110 H 04/11/24 17:56 98.0 F 110 H 18 143/71 95 Intake and Output 04/11/24 04/12/24 04/12/24 22:59 06:59 14:59 Other: # Voids 0 Weight 77.111 kg 77.111 kg Results 04/11/24 18:10 04/11/24 18:10 Cardiac Enzymes 04/11/24 04/11/24 04/11/24 Range/Units 18:10 18:10 23:40 AST 19 (14-36) U/L Troponin I <0.012 <0.012 (0.000-0.034) ng/mL 04/12/24 Range/Units 02:36 AST (14-36) U/L Troponin I <0.012 (0.000-0.034) ng/mL Coagulation 04/11/24 Range/Units 18:10 PT 9.9 L (10.0-12.5) sec APTT 22.4 (22.0-30.0) sec CBC 04/11/24 Range/Units 18:10 WBC 7.0 (3.8-10.6) k/uL RBC 4.59 (3.80-5.40) m/uL Hgb 13.7 (11.4-16.0) gm/dL Hct 41.3 (34.0-46.0) % Plt Count 159 (150-450) k/uL Comprehensive Metabolic Panel 04/11/24 Range/Units 18:10 Sodium 134 L (137-145) mmol/L Potassium 3.2 L (3.5-5.1) mmol/L Chloride 106 (98-107) mmol/L Carbon Dioxide 21 L (22-30) mmol/L BUN 17 (7-17) mg/dL Creatinine 0.75 (0.52-1.04) mg/dL Glucose 118 H (74-99) mg/dL Calcium 9.0 (8.4-10.2) mg/dL AST 19 (14-36) U/L ALT 15 (4-34) U/L Alkaline Phosphatase 88 (38-126) U/L Total Protein 5.9 L (6.3-8.2) g/dL Albumin 3.7 (3.5-5.0) g/dL Current Medications Generic Name Dose Route Start Last Admin Trade Name Freq PRN Reason Stop Dose Admin Acetaminophen 650 mg 04/11/24 23:23 Acetaminophen Tab 325 Mg Tab PO Q6HR PRN Mild Pain or Fever > 100.5 Sodium Chloride 1,000 mls @ 75 mls/hr 04/11/24 23:30 04/11/24 23:31 Saline 0.9% IV 75 mls/hr .[id number] RHEA Administration Dobutamine HCl/Dextrose 500 mg 250 mls @ 23.133 mls/hr 04/12/24 07:53 / IV Solution IV 04/12/24 11:53 .[id number] PRN Per Protocol Protocol 10 MCG/KG/MIN Naloxone HCl 0.2 mg 04/11/24 23:23 Naloxone 0.4 Mg/Ml 1 Ml Vial IV Q2M PRN Opioid Reversal Ondansetron HCl 4 mg 04/11/24 23:23 Ondansetron 4 Mg/2 Ml Vial IVP Q8HR PRN Nausea And Vomiting Intake and Output 04/11/24 04/12/24 04/12/24 22:59 06:59 14:59 Other: # Voids 0 Weight 77.111 kg 77.111 kg 04/11/24 18:10 04/11/24 18:10
[2024-04-12] MEDS: APIXABAN 5 MG TAB PO SCH (10:18)
--- NOTE | 2024-04-12 12:18 | CA ---
Dobutamine Stress Echocardiogram Report Judy Saba Age: 63 Gender: F : 1960 Exam Date: 04/12/2024 11:17 Exam Location: [place] Stress Ordering Physician: Soha Funes Referring Physician: [id number] General Manager: Mansoor Mojica Technologist: Ht (in): 66 Wt (lb): 170 Procedure CPT: Indication: CP ICD-9 Codes: Rhythm: Patient History: Cardiac Medications: SEE CHART Medications in past 24 hours: Contrast: N/A Total Dose (mL): NA Stress Results Protocol: Dobutamine Peak Dose (???g/kg/min): 20 Duration (min:sec): Atropine:(mg) Target HR: 133 Double Product: 36239 Resting HR: 77 Resting BP: 114 / 66 Peak HR: 158 Peak BP: 175 / 68 Max Predicted HR: 157 101 % Max Predicted HR Stress Summary: BP Response: Reason for Termination: Exceeded target heart rate (85% max predicted) Cardiac Symptoms: HEADACHE ECG Analysis Resting EKG: Normal sinus rhythm, normal ECG Stress EKG: No abnormal ST/T wave changes with exercise Arrhythmia: None Echo Analysis Base Echo Analysis: Normal resting echocardiogram. Low Echo Anaylsis: Normal wall thickening and motion Peak Echo Analysis: No wall motion changes with stress. Recovery Echo: Normal left ventricular systolic function MEASUREMENTS (Male/Female) Normal Values CONCLUSIONS Normal electrocardiographic response to dobutamine infusion Normal Dobutamine stress echocardiogram. Dr. Deonna Coyne MD (Electronically Signed) Final Date: 12 April 2024 12:17
[2024-04-12 13:03] LABS: Basophils % (A) 1 %; Eosinophils # (A) 0.3 k/uL (0-0.7); Eosinophils % (A) 5 %; HCT 39.3 % (34.0-46.0); HGB 12.7 gm/dL (11.4-16.0); Lymphocytes # (A) 2.4 k/uL (1.0-4.8); Lymphocytes % (A) 43 %; MCH 29.9 pg (25.0-35.0); MCHC 32.3 g/dL (31.0-37.0); MCV 92.6 fL (80.0-100.0); Mean Platelet Volume 10.1; Monocytes # (A) 0.3 k/uL (0-1.0); Monocytes % (A) 6 %; Neutrophils # (A) 2.4 k/uL (1.3-7.7); Neutrophils % (A) 44 %; Platelet Count 160 k/uL (150-450); RBC 4.24 m/uL (3.80-5.40); WBC 5.4 k/uL (3.8-10.6)
[2024-04-12 13:05] LABS: ALT 12 U/L (4-34); AST 19 U/L (14-36); African American GFR (CKD) >90 (>60 ml/min/1.73 sqM); Albumin 3.2 g/dL (3.5-5.0); Albumin/Globulin Ratio 1.5; Alkaline Phosphatase 84 U/L (38-126); Anion Gap 4 mmol/L; Blood Urea Nitrogen 15 mg/dL (7-17); Carbon Dioxide 23 mmol/L (22-30); Chloride 108 mmol/L (98-107); Globulin 2.2 g/dL; Glucose 85 mg/dL (74-99); Non-African American GFR(CKD) >90 (>60 ml/min/1.73 sqM); Potassium 3.9 mmol/L (3.5-5.1); Sodium 135 mmol/L (137-145); Total Bilirubin 0.3 mg/dL (0.2-1.3); Total Protein 5.4 g/dL (6.3-8.2)
[2024-04-12] MEDS: ACETAMINOPHEN TAB 325 MG TAB PO PRN (13:32)
[2024-04-12] MEDS: ONDANSETRON 4 MG/2 ML VIAL IVP PRN (13:34)
[2024-04-12 18:24] VITALS: BP 122/73; PULSE 79; RESP 14; TEMP 98.1
[2024-04-12] MEDS ORDERED: FORMOTEROL FUMARATE 20 MCG/2 ML NEBU INHALATION SCH (20:00)
[2024-04-12] MEDS ORDERED: DULoxetine HCL 30 MG CAPSULE.DR PO SCH (21:00)
[2024-04-13] MEDS ORDERED: ASPIRIN 81 MG PO SCH (09:00)
== END 2024-04-12 18:25 | disposition home or self-care (01) ==
LOC: EC 17:50 → 6NMEDSUR 23:24
PROVIDERS: ADMIT Family Medicine; ATTEND Family Medicine
DX: R07.89 Other chest pain (principal); F41.1 Generalized anxiety disorder; Z86.718 Personal history of other venous thrombosis and embolism; J44.9 Chronic obstructive pulmonary disease, unspecified; Z82.49 Family history of ischemic heart disease and other diseases of the circulatory system; Z86.73 Personal history of transient ischemic attack (TIA), and cerebral infarction without residual deficits; F32.A Depression, unspecified; E78.5 Hyperlipidemia, unspecified; Z79.01 Long term (current) use of anticoagulants; Z96.1 Presence of intraocular lens; Z91.199 Patient's noncompliance with other medical treatment and regimen due to unspecified reason; Z82.5 Family history of asthma and other chronic lower respiratory diseases; Z80.1 Family history of malignant neoplasm of trachea, bronchus and lung; Z79.82 Long term (current) use of aspirin
CPT/HCPCS: 96376 ×2; 96361 ×2; 96365; 96375; 99285; 36415; 93005; 93351; 85379; 83880; 80053 ×2; 84443; 83735; 84484 ×2; 85025 ×2; 85610; 85730; 81001; 87636; 71046; 71275; G0378 ×2; J2060; J2405 ×2; J0696; Q9967

== ENCOUNTER 2024-05-06 14:49 | Inpatient (IN) | payer MEDICARE ==
--- NOTE | 2024-05-06 15:38 | ED ---
General Adult HPI - General Chief complaint: Syncope Stated complaint: vomiting, syncope, confusion Time Seen by Provider: 05/06/24 15:05 Source: patient Mode of arrival: ambulatory Limitations: no limitations - History of Present Illness Initial comments: Dictation was produced using [employer] dictation software. please excuse any grammatical, word or spelling errors. Chief Complaint: 63-year-old female presents emergency department for altered mental status History of Present Illness: Patient 63-year-old female she is brought into triage. Patient does not know why she is here. She states that she feels fine. According to daughter who brought patient she was standing up in the kitchen making some food when all of a sudden she began to stare from the space. There is concern that perhaps maybe had passed out. Patient has no complaints. Pre sent she does not smoke marijuana. The ROS documented in this emergency department record has been reviewed and confirmed by me. Those systems with pertinent positive or negative responses have been documented in the HPI. All other systems are other negative and/or noncontributory. - Related Data Home Medications Medication Instructions Recorded Confirmed DULoxetine HCL [Cymbalta] 30 mg PO HS 10/31/23 05/06/24 Apixaban [Eliquis] 5 mg PO BID 04/12/24 05/06/24 Aspirin 81 mg PO DAILY 04/12/24 05/06/24 Allergies Allergy/AdvReac Type Severity Reaction Status Date / Time hydrogen peroxide Allergy rash and Verified 05/06/24 15:02 skin burn Latex, Natural Rubber Allergy Swelling Verified 05/06/24 15:02 metronidazole Allergy Unknown Verified 05/06/24 15:02 fentanyl AdvReac decreased Verified 05/06/24 15:02 bp isosorbide AdvReac Rapid Verified 05/06/24 15:02 Heart Rate Review of Systems ROS Statement: Those systems with pertinent positive or pertinent negative responses have been documented in the HPI. ROS Other: All systems not noted in ROS Statement are negative. Past Medical History Past Medical History: Chest Pain / Angina, COPD, Deep Vein Thrombosis (DVT), Eye Disorder, GERD/Reflux, Hyperlipidemia, Pneumonia, Pulmonary Embolus (PE), Syncope Additional Past Medical History / Comment(s): Chronic back and bilateral knee pain, DDD, cervical/back "nerve damage", "low BP", DVT right thigh, bilateral PEs in 2010 and 2014, migraines, osteoporosis, IBS, vertigo at times, R wrist 2 cysts, pt states since cataract surgery her vision has declined. History of Any Multi-Drug Resistant Organisms: None Reported Past Surgical History: Appendectomy, Cholecystectomy, Heart Catheterization Additional Past Surgical History / Comment(s): EGD/COLONOSCOPY/POLYPECTOMY- BENIGN, cardiac cath 06/10/16-normal, back/bilateral knee injections. epidural steroid inj -back, bilateral cataract removals/lens implants. Past Anesthesia/Blood Transfusion Reactions: No Reported Reaction Additional Past Anesthesia/Blood Transfusion Reaction / Comment(s): Pt has clausterphobia. Past Psychological History: Bipolar, Depression, Schizophrenia Smoking Status: Current every day smoker Past Alcohol Use History: None Reported Past Drug Use History: Marijuana - Past Family History Mother Family Medical History: Cancer, COPD, Hypertension Additional Family Medical History / Comment(s): Mother of LUNG CANCER at the age of 74yrs. Father Family Medical History: CVA/TIA, Hypertension Additional Family Medical History / Comment(s): Father had 2 CVAs and from the second one at the age of 52yrs. He was an alcoholic. General Exam - General Exam Comments Initial Comments: PHYSICAL EXAM: General Impression: Alert and oriented x3/4, smells like weed, not in acute distress HEENT: Normocephalic atraumatic, extra-ocular movements intact, pupils equal and reactive to light bilaterally, mucous membranes moist. Cardiovascular: Heart regular rate and rhythm Chest: Able to complete full sentences, no retractions, no tachypnea Abdomen: abdomen soft, non-tender, non-distended, no organomegaly Musculoskeletal: Pulses present and equal in all extremities, no peripheral edema Motor: no focal deficits noted Neurological: CN II-XII grossly intact, no focal motor or sensory deficits noted Skin: Intact with no visualized rashes Psych: Normal affect and mood Limitations: no limitations Course Vital Signs 05/06/24 05/06/24 05/06/24 14:59 16:14 16:58 Temperature 97.5 F L 98.6 F Pulse Rate 78 75 101 H Respiratory 18 18 18 Rate Blood Pressure 94/61 128/65 110/70 O2 Sat by Pulse 96 100 99 Oximetry 05/06/24 17:55 Temperature 98.4 F Pulse Rate 110 H Respiratory 20 Rate Blood Pressure 100/52 O2 Sat by Pulse 100 Oximetry - Reevaluation(s) Reevaluation #1: 05/06/24 16:47 Was notified by nursing staff that patient had an episode where she became tachycardic. Nurse at the bedside states that there was tonic-clonic activity. Tonic a like activity lasted for less than 1 minute patient became postictal. I arrived at the bedside while patient was postictal. She is having sonorous respirations however her vitals are stable. classroom monitor was reviewed she did have episode of tachycardia with significant artifact. There is no real episode of V. tach V-fib or any sort of wide-complex tachycardia dysrhythmia. Reevaluation #2: 05/06/24 16:48 SPECT that patient had a seizure earlier today that was interpreted as syncopal episode. Given that patient had a second seizure by definition she meets criteria for status epilepticus. Patient given 1 g of Keppra to milligrams of Ativan. Reevaluation #3: 05/06/24 17:58 Case was discussed with our on-call neurologist, Dr. Loving. Presentation along with seizure observed in ER with prolonged postictal state was discussed. Disposition options were discussed with neurologist. He felt that patient is appropriate to be admitted to our facility. He did agree with giving patient 1500 mg of Keppra and 2 mg of Ativan. Patient reevaluated bedside at 6:00 PM she is sleepy but arousable. EKG Findings - EKG Comments: EKG Findings:: My EKG interpretation: Ventricular rate 75, sinus rhythm,. 156, QRS 80, QTc 4 3. No [place] prolongation, no QTC prolongation, no ST or T-wave changes noted. . Overall, this EKG is unremarkable Medical Decision Making - Medical Decision Making Was pt. sent in by a medical professional or institution (, PA, MACHINE INSPECTOR, urgent care, hospital, or penitentiary...) When possible be specific @ -No Did you speak to anyone other than the patient for history (EMS, parent, family, police, friend...)? What history was obtained from this source @ -No Did you review nursing and triage notes (agree or disagree)? Why? @ -I reviewed and agree with nursing and triage notes Were old charts reviewed (outside hosp., previous admission, EMS record, old EKG, old radiological studies, urgent care reports/EKG's, penitentiary records)? Report findings @ -No old charts were reviewed Differential Diagnosis (chest pain, altered mental status, abdominal pain women, abdominal pain men, vaginal bleeding, musculoskeletal, weakness, fever, dyspn ea, syncope, headache, dizziness, GI bleed, back pain, seizure, CVA, palpatations, mental health)? @ -Differential Seizure: Recurrent seizure disorder, febrile seizure, alcohol withdrawal, stimulants, meningitis, encephalitis, intercranial hemorrhage, intracranial tumor, stroke, eclampsia, thyrotoxicosis, hypocalcemia, hyponatremia, hypernatremia, hypomagnesemia, psychogenic, this is not meant to be an all-inclusive list. EKG interpreted by me (3pts min.). @ -See above X-rays interpreted by me (1pt min.). @ -None done CT interpreted by me (1pt min.). @ -CT brain shows no acute processes U/S interpreted by me (1pt. min.). @ -None done What testing was considered but not performed or refused? (CT, X-rays, U/S, labs)? Why? @ -None What meds were considered but not given or refused? Why? @ -None Was smoking cessation discussed for >3mins.? @ -No Were there social determinants of health that impacted care today? How? (Homelessness, low income, unemployed, alcoholism, drug addiction, transportation, low edu. Level, literacy, decrease access to med. care, correction, rehab)? @ -No Was there de-escalation of care discussed even if they declined (Discuss DNR or withdrawal of care, Hospice)? DNR status @ -No What co-morbidities impacted this encounter? (DM, HTN, Smoking, COPD, CAD, Cancer, CVA, ARF, Chemo, Hep., AIDS, mental health diagnosis, sleep apnea, morbid obesity)? @ -None Was patient admitted / discharged? Hospital course, mention meds given and route, prescriptions, significant lab abnormalities, going to OR and other pertinent info. @ -63-year-old female presents initially for syncope. Vital signs upon arrival are within acceptable limits. Physical examination upon arrival shows well- appearing female with no focal neurologic deficits. While in the emergency department she had a seizure as described above in the suspicion of status epilepticus. Patient given Keppra along with Ativan. Patient's seizure stopped. Discussed with neurology as described above. Case discussed with Dr. Baker for admission. Did you discuss the management of the patient with other professionals (professionals i.e. , PA, MACHINE INSPECTOR, lab, RT, psych nurse, older adult social work specialist, entertainment centre manager, teacher, radio officer, corrections caseworker)? Give summary @ -See above Was critical care preformed (if so, how long)? @ -Yes, 77 minutes for status epilepticus Undiagnosed new problem with uncertain prognosis? @ -No Drug Therapy requiring intensive monitoring for toxicity (Heparin, Nitro, Insulin, Cardizem)? @ -No Were any procedures done? @ -No Diagnosis/symptom? Acute, or Chronic, or Acute on Chronic? Uncomplicated (without systemic symptoms) or Complicated (systemic symptoms)? @ -Seizure Side effects of treatment? @ -No Exacerbation, Progression, or Severe Exacerbation? @ -No Poses a threat to life or bodily function? How? (Chest pain, [place], CO, pneumonia, PE, COPD, DKA, ARF, appy, cholecystitis, CVA, Diverticulitis, Homicidal, Suicidal, threat to staff... and all critical care pts) @ -yes - Lab Data Result diagrams: 05/06/24 15:43 05/06/24 15:43 Lab Results 05/06/24 05/06/24 Range/Units 15:43 15:43 WBC 4.2 (3.8-10.6) k/uL RBC 4.12 (3.80-5.40) m/uL Hgb 12.4 (11.4-16.0) gm/dL Hct 37.2 (34.0-46.0) % MCV 90.3 (80.0-100.0) fL MCH 30.1 (25.0-35.0) pg MCHC 33.3 (31.0-37.0) g/dL RDW 13.9 (11.5-15.5) % Plt Count 163 (150-450) k/uL MPV 8.7 Neutrophils % 53 % Lymphocytes % 36 % Monocytes % 4 % Eosinophils % 5 % Basophils % 1 % Neutrophils # 2.3 (1.3-7.7) k/uL Lymphocytes # 1.5 (1.0-4.8) k/uL Monocytes # 0.2 (0-1.0) k/uL Eosinophils # 0.2 (0-0.7) k/uL Basophils # 0.0 (0-0.2) k/uL Sodium 135 L (137-145) mmol/L Potassium 4.6 (3.5-5.1) mmol/L Chloride 106 (98-107) mmol/L Carbon Dioxide 24 (22-30) mmol/L Anion Gap 5 mmol/L BUN 14 (7-17) mg/dL Creatinine 0.87 (0.52-1.04) mg/dL Est GFR (CKD-EPI)AfAm 82 (>60 ml/min/1.73 sqM) Est GFR (CKD-EPI)NonAf 71 (>60 ml/min/1.73 sqM) Glucose 99 (74-99) mg/dL Calcium 9.6 (8.4-10.2) mg/dL Total Bilirubin 0.4 (0.2-1.3) mg/dL AST 21 (14-36) U/L ALT 11 (4-34) U/L Alkaline Phosphatase 82 (38-126) U/L Total Protein 6.2 L (6.3-8.2) g/dL Albumin 3.8 (3.5-5.0) g/dL Disposition Clinical Impression: Seizure Disposition: ADMITTED IP TO THIS HOSP Condition: Serious Referrals: Louie Baker MD [Primary Care Provider] - 1-2 days Decision Time: 18:21
[2024-05-06 16:09] LABS: Basophils % (A) 1 %; Eosinophils # (A) 0.2 k/uL (0-0.7); Eosinophils % (A) 5 %; HCT 37.2 % (34.0-46.0); HGB 12.4 gm/dL (11.4-16.0); Lymphocytes # (A) 1.5 k/uL (1.0-4.8); Lymphocytes % (A) 36 %; MCH 30.1 pg (25.0-35.0); MCHC 33.3 g/dL (31.0-37.0); MCV 90.3 fL (80.0-100.0); Mean Platelet Volume 8.7; Monocytes # (A) 0.2 k/uL (0-1.0); Monocytes % (A) 4 %; Neutrophils # (A) 2.3 k/uL (1.3-7.7); Neutrophils % (A) 53 %; Platelet Count 163 k/uL (150-450); RBC 4.12 m/uL (3.80-5.40); RDW 13.9 % (11.5-15.5); WBC 4.2 k/uL (3.8-10.6)
--- NOTE | 2024-05-06 16:10 | CT ---
EXAMINATION TYPE: CT brain wo con CT DLP: 1103.4 mGycm, Automated exposure control for dose reduction was used. DATE OF EXAM: 05/06/2024 4:05 PM COMPARISON: 04/22/2023. CLINICAL INDICATION:Female, 63 years old with history of ams, AMS TECHNIQUE: Brain: Axial CT images of the brain were obtained with coronal and sagittal reformats created and rev iewed. Contrast used: None. Oral contrast used: None. FINDINGS: Brain: Extra-axial spaces: No abnormal extra-axial fluid collections. Ventricular system: Within normal limits Cerebral parenchyma: Right choroidal fissure cyst. Versus prominent perivascular space versus remote injury. Unchanged from prior No acute intraparenchymal hemorrhage or mass effect. The garcia-white cordelia ction is well differentiated. Cerebellum: Unremarkable. Mass effect: No evidence of midline shift. Intracranial vasculature: Atherosclerotic calcifications of the intracranial vessels. Soft tissues: Normal. Calvarium/osseous structures: No depressed skull fracture. Paranasal sinuses and mastoid air cells: Mild scattered paranasal sinus disease. Visualized orbits: Orbital contents are intact. IMPRESSION: No acute intracranial process.
[2024-05-06 16:24] LABS: ALT 11 U/L (4-34); AST 21 U/L (14-36); African American GFR (CKD) 82 (>60 ml/min/1.73 sqM); Albumin 3.8 g/dL (3.5-5.0); Alkaline Phosphatase 82 U/L (38-126); Anion Gap 5 mmol/L; Blood Urea Nitrogen 14 mg/dL (7-17); Calcium 9.6 mg/dL (8.4-10.2); Carbon Dioxide 24 mmol/L (22-30); Chloride 106 mmol/L (98-107); Glucose 99 mg/dL (74-99); Non-African American GFR(CKD) 71 (>60 ml/min/1.73 sqM); Potassium 4.6 mmol/L (3.5-5.1); Sodium 135 mmol/L (137-145); Total Bilirubin 0.4 mg/dL (0.2-1.3); Total Protein 6.2 g/dL (6.3-8.2)
[2024-05-06] MEDS: LORazepam 2 MG/ML INJ IV STA (17:04)
[2024-05-06] MEDS: levETIRAcetam IV 500 MG/5 ML VIAL IVP STA (17:10)
[2024-05-06] MEDS ORDERED: NALOXONE 0.4 MG/ML 1 ML VIAL IV PRN (18:18)
[2024-05-06] MEDS ORDERED: LORazepam 2 MG/ML INJ IV PRN (18:19)
[2024-05-06] MEDS: SODIUM CHLORIDE 0.9% 1,000 ML IV SCH (18:26)
[2024-05-06] MEDS: ACETAMINOPHEN TAB 325 MG TAB PO PRN (21:54)
[2024-05-07 07:37] LABS: Amphetamine Screen,Urine Not Detected (NotDetected); Barbiturate Screen,Urine Not Detected (NotDetected); Benzodiazepines Screen,Urine Detected (NotDetected); Cocaine Screen,Urine Not Detected (NotDetected); Methadone Screen, Urine Not Detected (NotDetected); Opiate Screen,Urine Not Detected (NotDetected); Oxycodone Screen, Urine Not Detected (NotDetected); Phencyclidine Screen,Urine Not Detected (NotDetected); Tricyclic Antidepressant,Urine Not Detected (NotDetected); Urn Cannabinoid Scrn Detected (NotDetected)
--- NOTE | 2024-05-07 12:11 | P.CNNES ---
History of Present Illness Consult date: 05/06/24 Requesting physician: Jovany Garcia Reason for Consult: Seizure History of Present Illness: Patient is a 63-year-old right-handed female with history of syncope, was brought to the hospital today at 2:49 PM for altered mental status. Patient not able to provide any history. I tried to contact patient's daughter, both of them and did not pick pulling machine tender the phone. As per electronic records, it was reported by the patient's daughter to the ED staff, that patient was standing up in the kitchen, making some food when all of a sudden she began to stare from the space. There is concerned that perhaps maybe had passed out. While patient was in the ER, at 4:47 PM, patient had an episode where she became tachycardic. Nurse at the bedside states that there was tonic-clonic activity, that lasted for 1 minute and patient became postictal. When ED physician arrived, patient was having sonorous respiration however her vitals were stable. No arrhythmia noted on the monitor. Patient was given Keppra 1500 mg IV and Ativan 2 mg IV by the ED staff. Patient now is asleep. Vital signs arrival blood pressure 90/61, pulse 78 temperature 97.5. Blood test shows normal CBC, CMP. CT head showed no acute intracranial process. I personally reviewed CT head, agree with the findings. EKG showed sinus rhythm. Home medication include Cymbalta 30 mg, aspirin 81 mg and Eliquis 5 mg twice daily. At present patient is somnolent, but does wake up and answers appropriately. Patient states that she passed out earlier. She states that prior to passing out she had a "tickle in her right knee" before she passed out. She could not remember how she got here. Denies any headache. She states that she feels tired. She states that she lives with her daughter. She uses a cane, and has been using it consistently for last 1 year. Patient states that she had a seizure about 2 years ago. She admits to smoking 1 pack/day for last 50 years, denies any alcohol use. Denies diabetes. Patient has been seen by myself on 04/24/2023 for possible TIA versus seizure. At that time patient had ran out of her aspirin for 9 days and Lipitor, therefore TIA was suspected. EEG was normal. AED was not initiated. Patient's hemoglobin A1c was 5.6 on 10/30/2022, lipid panel with cholesterol 214, LDL 146, HDL 48 and triglycerides 92. Patient was on Lipitor 40 mg. 2D echo showed no significant abnormality. It was recommended for patient to resume aspirin 325 mg for 30 days and then decrease it to 81 mg daily indefinitely. Carotid Doppler had revealed 50 to 69% stenosis left carotid bifurcation. Less than 50% stenosis right ICA. Medical management was recommended. Review of Systems Constitutional: Denies chills, Denies fever Eyes: denies blurred vision, denies diplopia, denies pain, denies loss of peripheral vision Ears: deny: decreased hearing, ear discharge Ears, nose, mouth and throat: Denies headache, Denies sore throat, Denies vertigo Cardiovascular: Denies chest pain, Denies shortness of breath Respiratory: Denies cough, Denies excessive sputum Gastrointestinal: Denies abdominal pain, Denies diarrhea, Denies nausea, Denies vomiting Musculoskeletal: Denies low back pain, Denies neck pain Integumentary: Denies pruritus, Denies rash Neurological: Reports as per HPI Psychiatric: Reports anxiety, Reports depression Endocrine: Reports fatigue, Reports weight change Past Medical History Past Medical History: Chest Pain / Angina, COPD, Deep Vein Thrombosis (DVT), Eye Disorder, GERD/Reflux, Hyperlipidemia, Pneumonia, Pulmonary Embolus (PE), Syncope Additional Past Medical History / Comment(s): Chronic back and bilateral knee pain, DDD, cervical/back "nerve damage", "low BP", DVT right thigh, bilateral PEs in 2010 and 2014, migraines, osteoporosis, IBS, vertigo at times, R wrist 2 cysts, pt states since cataract surgery her vision has declined. History of Any Multi-Drug Resistant Organisms: None Reported Past Surgical History: Appendectomy, Cholecystectomy, Heart Catheterization Additional Past Surgical History / Comment(s): EGD/COLONOSCOPY/POLYPECTOMY- BENIGN, cardiac cath 06/10/16-normal, back/bilateral knee injections. epidural steroid inj -back, bilateral cataract removals/lens implants. Past Anesthesia/Blood Transfusion Reactions: No Reported Reaction Additional Past Anesthesia/Blood Transfusion Reaction / Comment(s): Pt has clausterphobia. Past Psychological History: Bipolar, Depression, Schizophrenia Smoking Status: Current every day smoker Past Alcohol Use History: None Reported Past Drug Use History: Marijuana - Past Family History Mother Family Medical History: Cancer, COPD, Hypertension Additional Family Medical History / Comment(s): Mother of LUNG CANCER at th e age of 74yrs. Father Family Medical History: CVA/TIA, Hypertension Additional Family Medical History / Comment(s): Father had 2 CVAs and from the second one at the age of 52yrs. He was an alcoholic. Medications and Allergies Home Medications Medication Instructions Recorded Confirmed Type DULoxetine HCL [Cymbalta] 30 mg PO HS 10/31/23 05/06/24 History Apixaban [Eliquis] 5 mg PO BID 04/12/24 05/06/24 History Aspirin 81 mg PO DAILY 04/12/24 05/06/24 History Allergies Allergy/AdvReac Type Severity Reaction Status Date / Time hydrogen peroxide Allergy rash and Verified 05/06/24 15:02 skin burn Latex, Natural Rubber Allergy Swelling Verified 05/06/24 15:02 metronidazole Allergy Unknown Verified 05/06/24 15:02 fentanyl AdvReac decreased Verified 05/06/24 15:02 bp isosorbide AdvReac Rapid Verified 05/06/24 15:02 Heart Rate Physical Examination - Vital Signs Vital Signs: Vital Signs Temp Pulse Resp BP Pulse Ox 05/06/24 18:00 116 H 18 106/64 96 05/06/24 17:55 98.4 F 110 H 20 100/52 100 05/06/24 16:58 98.6 F 101 H 18 110/70 99 05/06/24 16:14 75 18 128/65 100 05/06/24 14:59 97.5 F L 78 18 94/61 96 Intake and Output 05/06/24 05/06/24 05/06/24 06:59 14:59 22:59 Other: Weight 77.111 kg Patient is an elderly female, in no acute distress. Patient is slightly somnolent, likely due to receiving all medications and postictal effect. She does become alert awake oriented to place and person only. Patient knows it is hospital but says it is "[facility]" and that she is in [facility]. She could not tell the current month or the year. She knows her age 64 and states the current president is "Darell". Speech and language functions are normal. Patient can name and repeat very well. No aphasia or dysarthria. Attention, concentration is slightly decreased and fund of knowledge is a moderately decreased. On cranial nerve examination, pupils are equal, round and reacting to light, visual dangelo are full on confrontation, with no neglect on double simultaneous stimulation. Extraocular muscles are intact with no nystagmus. Face is symmetric, tongue protrudes to the midline. Palatal elevation and sensation normal, hearing and shoulder shrug normal, facial sensation normal. On muscle strength testing, there is no pronator drift and the strength is normal in arms and legs distally and proximally. Deep tendon reflexes are symmetric to all over and plantars are withdrawal. Sensory to touch is equal with no neglect on double simultaneous stimulation. Cerebellar function showed no ataxia for [id number] testing. No dysdiadochokinesia. No ataxia for [id number] testing on either side. Tone and bulk of muscles normal. Gait deferred.. On general examination, there is no carotid bruit or murmur, S1-S2 audible. Chest is clear on consultation. Abdomen is soft nontender. No organomegaly, bowel sounds present. Peripheral pulses are present. No peripheral edema. Results - Laboratory Findings CBC and BMP: 05/06/24 15:43 05/06/24 15:43 Abnormal Lab Findings: Abnormal Labs 05/06/24 15:43 Sodium 135 L Total Protein 6.2 L Assessment and Plan Assessment: * New onset seizure. Patient came with a syncopal spell and altered mental status, which could potentially be a seizure. However patient had a witnessed seizure in the ER. Patient also had a syncopal versus seizure spell on 04/23/2023. * History of DVT, on Eliquis * Left ICA stenosis, moderate degree per previous carotid Doppler. * Tobacco use Plan: * Check EEG, rule out epileptiform activity * Patient given loading dose of Keppra 1500 mg in the ER. We will start Keppra 500 mg twice daily. * Patient had an MRI of the brain with and without contrast previously on 09/15/2023, which revealed performed showed some white matter disease, with no acute process. No need to repeat MRI. * Check carotid Doppler, follow-up on left ICA stenosis. * Resume Eliquis. * I tried to contact patient's both daughters Bailey and Dani on their cell phone number, to obtain collateral history, but they did not pick pulling machine tender the phone. * We will try to contact them in the morning again. * Neurology will follow. Thank you for the consult.
--- NOTE | 2024-05-07 13:21 | EEG ---
ELECTROENCEPHALOGRAM REPORT PREAMBLE: This is a 63-year-old female with syncope versus seizure. EEG FINDINGS: This is a 21-channel digital EEG recorded with video component, utilizing 10/20 international system with referential and bipolar montages. Background consists of well developed, well regulated moderate voltage activity in 10 hertz alpha. Background is posterior dominant and seems to be reactive to eye opening or closing. Photic driving response was seen with some flash frequencies. Drowsiness was seen with appearance of bilaterally symmetric theta frequency rhythm. Deeper stages of sleep were not seen. No focal or generalized epileptiform activity was seen. EKG channel showed no obvious arrhythmia. IMPRESSION: This is a normal awake and drowsy EEG. No focal, lateralized, or epileptiform activity was seen. MMODL / IJN: [id number] /
--- NOTE | 2024-05-07 14:06 | US ---
EXAMINATION TYPE: US carotid duplex BILAT DATE OF EXAM: 05/07/2024 COMPARISON: 04/23/23 CLINICAL INDICATION: Female, 63 years old with history of Syncope, previous left ICA stenosis, follow -up; left ICA stenosis TECHNIQUE: Carotid duplex ultrasound examination. Indirect Doppler criteria was utilized. FINDINGS: EXAM MEASUREMENTS: RIGHT: Peak Systolic Velocity (PSV) cm/sec ----- Right CCA: 69.7 ----- Right ICA: 93.1 ----- Right ECA: 114.5 ICA/CCA ratio: 1.3 RIGHT: End Diastole cm/sec ----- Right CCA: 20.2 ----- Right ICA: 30.9 ----- Right ECA: 20.8 LEFT: Peak Systolic Velocity (PSV) cm/sec ----- Left CCA: 79.8 ----- Left ICA: 133.8 ----- Left ECA: 143.7 ICA/CCA ratio: 1.7 LEFT: End Diastole cm/sec ----- Left CCA: 23.1 ----- Left ICA: 37.2 ----- Left ECA: 11.6 VERTEBRALS (direction of flow): Right Vertebral: Antegrade Left Vertebral: Antegrade Rhythm: Normal POLICE SERVICE TECHNICIAN NOTES: slightly elevated velocity seen in left prox ICA. Plaque seen in bilateral bulbs IMPRESSION: No evidence for hemodynamically significant stenosis. Criteria for Assigning % of Stenosis / Diameter reduction (Estimation based on the indirect measurements of the internal carotid artery velocities (ICA PSV). 1. Normal (no stenosis)=ICA PSV < 125 cm/s: ratio < 2.0: ICA EDV<40 cm/s. 2. Less than 50% stenosis=ICA PSV < 125 cm/s: ratio < 2.0: ICA EDV<40 cm/s. 3. 50 to 69% stenosis=ICA PSV of 125 to 230 cm/s: ration 2.0 ? 4.0: ICA EDV 40-100 cm/s. 4. Greater than 70% stenosis to near occlusion= ICA PSV > 230 cm/s: ratio > 4.0: ICA EDV > 100 cm/s. 5. Near occlusion= ICA PSV velocities may be low or undetectable: variable ratio and ICA EDV. 6. Total occlusion=unable to detect flow.
[2024-05-07] MEDS: HEPARIN SODIUM,PORCINE 5,000 UNIT/ML 1 ML VIAL SQ STA (15:30)
[2024-05-07] MEDS: APIXABAN 5 MG TAB PO SCH (20:16)
[2024-05-07] MEDS: DULoxetine HCL 30 MG CAPSULE.DR PO SCH (20:17)
[2024-05-07] MEDS: levETIRAcetam 500 MG TAB PO SCH (20:17)
[2024-05-07] MEDS ORDERED: APIXABAN 5 MG TAB PO SCH (21:00)
--- NOTE | 2024-05-07 21:34 | CT ---
EXAMINATION TYPE: CT chest angio for PE CT DLP: 305.5 mGycm, Automated exposure control for dose reduction was used. DATE OF EXAM: 05/07/2024 8:49 PM COMPARISON: Chest radiograph from same day. Multiple CTs of the chest with most recent on . CLINICAL INDICATION:Female, 63 years old with history of elevated d-dimer; Elevated d-dimer. TECHNIQUE/CONTRAST: CTA scan of the thorax is performed with IV Contrast, patient injected with 80 cc mL of Isovue 370, M IP images are created and reviewed these are created on a separate workstation.. FINDINGS: Pulmonary Artery: There is no evidence for a filling defect within the pulmonary vasculature to sugge st acute pulmonary embolism. The pulmonary artery is of normal size. Lungs/Pleura: Scattered areas of emphysema. Subsegmental atelectasis and focal areas of groundglass a ttenuation, mild, diffuse well . Airway: Large airways are patent. Heart: Heart is within normal limits for size. Vasculature: No evidence of aortic aneurysm. Mediastinum: No gross evidence of adenopathy. Musculoskeletal: No acute osseous abnormalities Soft Tissues: Unremarkable. Lower neck: No significant findings. Upper Abdomen: No significant findings. IMPRESSION: 1. No evidence of pulmonary embolism. 2. Peripheral groundglass pulmonary opacities consistent with atypical pulmonary infection such as CO VID-19. Additional etiologies can have this appearance and among these are fibrosis, benign, and oth er entities.
[2024-05-07] MEDS: IPRATROPIUM-ALBUTEROL 3 ML NEB INHALATION SCH (21:43)
--- NOTE | 2024-05-07 22:33 | HP ---
HISTORY AND PHYSICAL HISTORY OF PRESENT ILLNESS: A 63-year-old came in with altered mental status, brought in from the kitchen making some food ever since she began to stare into space. She passed out. We could wait for Neurology recommendations. Admitted to the hospital. HOME MEDICATIONS: 1. Eliquis 5 mg b.i.d. 2. Aspirin 81 daily. 3. Cymbalta 30 daily. PAST MEDICAL HISTORY: DVT, pulmonary embolism, syncope, hypertension, GERD, COPD, chest pain, angina, EGD, colonoscopies, back and knee injections, steroid injections, knee implants, CVA surgery. PSYCH HISTORY: Bipolar depression, schizophrenia. SOCIAL HISTORY: Current everyday smoker. FAMILY HISTORY: Mother; cancer, COPD, hypertension. Father; CVA, TIA, hypertension. PHYSICAL EXAMINATION: VITAL SIGNS: Pulse 75 to 78, blood pressure is 94 to 128 over 50s to 60s, respiratory rate 16 to 18, temperature 98.4. LUNGS: Scattered wheeze x4. HEMATOLOGY: Negative Homans. GI: Soft. PSYCH: Fair mood and affect. NEUROLOGIC: Cranial nerves are intact. in the emergency room. She is on marijuana apparently. ASSESSMENT: Tachycardic, tonic-clonic activity. Possible seizures. She is admitted for monitoring. Neuro consult. Please see further orders. Home medications have been reordered. Please see further workup. MMODL / IJN: [id number] /
[2024-05-08] MEDS: ASPIRIN 81 MG PO SCH (08:04)
--- NOTE | 2024-05-08 10:32 | P.PN ---
Subjective Progress Note Date: 05/07/24 Patient was seen for a follow-up. Patient complaining of headache 03/22, but patient has chronic headaches for years. Not a new problem. Wants to go home. No further seizures syncope. No focal symptoms. Objective - Vital Signs Vital signs: Vital Signs Temp 98 F 05/07/24 12:00 Pulse 80 05/07/24 13:59 Resp 16 05/07/24 13:59 BP 115/67 05/07/24 12:00 Pulse Ox 97 05/07/24 12:00 FiO2 Intake & Output 05/06/24 05/07/24 05/07/24 18:59 06:59 18:59 Intake Total 160 Output Total 450 Balance -290 Weight 77.111 kg 78.5 kg 78.5 kg Intake: Intake, IV Titration 160 Amount Sodium Chloride 0.9% 1, 160 000 ml @ 20 mls/hr IV . Q24H [facility] Rx#:[id number] Output: Urine 450 Other: Voiding Method Diaper Diaper External Catheter External Catheter # Voids 1 1 - Exam Mental status, speech and language functions are normal. Examination is completely unchanged. - Labs CBC & Chem 7: 05/06/24 15:43 05/06/24 15:43 Labs: Abnormal Lab Results - Last 24 Hours (Table) 05/06/24 05/07/24 Range/Units 15:43 06:20 Sodium 135 L (137-145) mmol/L Total Protein 6.2 L (6.3-8.2) g/dL U Benzodiazepines Scrn Detected H (NotDetected) U Marijuana (THC) Screen Detected H (NotDetected) Assessment and Plan Assessment: * New onset seizure. Patient came with a syncopal spell and altered mental status, which could potentially be a seizure. However patient had a witnessed seizure in the ER. Patient also had a syncopal versus seizure spell on 04/23/2023. * History of DVT, on Eliquis * Left ICA stenosis, moderate degree per previous carotid Doppler. * Tobacco use Plan: * EEG was normal awake and drowsy. No focal, lateralized or epileptiform activity was seen. * Patient given loading dose of Keppra 1500 mg in the ER. We will start Keppra 500 mg twice daily. * Patient had an MRI of the brain with and without contrast previously on 09/15, which revealed performed showed some white matter disease, with no acute process. No need to repeat MRI. * Carotid Doppler revealed no evidence for hemodynamically significant stenosis. Antegrade flow in both vertebral arteries. * CT of the chest revealed no pulmonary embolism. Peripheral groundglass pulmonary opacities, consistent with atypical pulmonary infection such as COVID-19. Patient on ceftriaxone. * Resume Eliquis. * Neurologically clear. * Recommend follow-up with neurologist outpatient. Discussed with patient's nurse.
[2024-05-08] MEDS: NICOTINE 21MG/24HR PATCH TRANSDERM SCH (10:57)
[2024-05-08] MEDS: NYSTATIN 100,000 UNIT/GM POWD 15 GM TOPICAL SCH (10:57)
--- NOTE | 2024-05-08 22:24 | P.CONS ---
History of Present Illness - Reason for Consult Consult date: 05/08/24 CAP Requesting physician: Louie Baker - Chief Complaint Weakness shortness of breath x 1 week - History of Present Illness Patient is a 63-year-old female with a past medical history significant for COPD DVT hypertension hyperlipidemia reflux PE patient presen ting to the hospital 2 days ago for evaluation of mental status changes according to the daughter who brought the patient to the hospital patient was in the kitchen making some food when all of a sudden she began to stare from the space there was concern that she may have passed out subsequently patient has been brought to the hospital patient also complaining of shortness of breath and cough that has been going on for about a week. Denies having any chest pain cough has been mild to moderate intensity with occasional sputum production hemoptysis patient denies having any nausea no vomiting no choking on the food no abdominal pain or any diarrhea on presentation to the hospital the patient was afebrile and no fever have been recorded subsequently patient was tachycardic 1 point but not hypoxic or hypotensive patient did have a white count of 4.2 creatinine 0.87 patient did have normal electrolytes and liver enzymes urine testing was positive for benzos and marijuana SARS-CoV-2 PCR was negative patient did have a CT angiogram of the chest that was negative for PE did shows peripheral groundglass pulm opacity consistent with atypical pulmonary infection patient was started on Rocephin infectious disease was consulted for further management of antibiotic therapy Review of Systems Positive point and negatives has been mentioned in the HPI, complete review of systems was performed and all other systems are negative Past Medical History Past Medical History: Chest Pain / Angina, COPD, Deep Vein Thrombosis (DVT), Eye Disorder, GERD/Reflux, Hyperlipidemia, Pneumonia, Pulmonary Embolus (PE), Syncope Additional Past Medical History / Comment(s): Chronic back and bilateral knee pain, DDD, cervical/back "nerve damage", "low BP", DVT right thigh, bilateral PEs in 2010 and 2014, migraines, osteoporosis, IBS, vertigo at times, R wrist 2 cysts, pt states since cataract surgery her vision has declined. History of Any Multi-Drug Resistant Organisms: None Reported Past Surgical History: Appendectomy, Cholecystectomy, Heart Catheterization Additional Past Surgical History / Comment(s): EGD/COLONOSCOPY/POLYPECTOMY- BENIGN, cardiac cath 06/10/16-normal, back/bilateral knee injections. epidural steroid inj -back, bilateral cataract removals/lens implants. Past Anesthesia/Blood Transfusion Reactions: No Reported Reaction Additional Past Anesthesia/Blood Transfusion Reaction / Comm: Pt has clausterphobia. Past Psychological History: Bipolar, Depression, Schizophrenia Smoking Status: Current every day smoker Past Alcohol Use History: None Reported Past Drug Use History: Marijuana - Past Family History Mother Family Medical History: Cancer, COPD, Hypertension Additional Family Medical History / Comment(s): Mother of LUNG CANCER at the age of 74yrs. Father Family Medical History: CVA/TIA, Hypertension Additional Family Medical History / Comment(s): Father had 2 CVAs and from the second one at the age of 52yrs. He was an alcoholic. Medications and Allergies Home Medications Medication Instructions Recorded Confirmed Type DULoxetine HCL [Cymbalta] 30 mg PO HS 10/31/23 05/06/24 History Apixaban [Eliquis] 5 mg PO BID 04/12/24 05/06/24 History Aspirin 81 mg PO DAILY 04/12/24 05/06/24 History Allergies Allergy/AdvReac Type Severity Reaction Status Date / Time hydrogen peroxide Allergy rash and Verified 05/06/24 15:02 skin burn Latex, Natural Rubber Allergy Swelling Verified 05/06/24 15:02 metronidazole Allergy Unknown Verified 05/06/24 15:02 fentanyl AdvReac decreased Verified 05/06/24 15:02 bp isosorbide AdvReac Rapid Verified 05/06/24 15:02 Heart Rate Physical Exam Vitals: Vital Signs Temp Pulse Pulse Resp BP Pulse Ox 05/08/24 09:17 100 18 05/08/24 09:10 103 H 16 05/08/24 08:00 98.9 F 93 17 109/66 95 05/08/24 03:24 98.2 F 76 18 113/66 97 05/07/24 23:15 97.9 F 95 16 109/65 96 05/07/24 20:00 98.2 F 109 H 24 147/88 96 05/07/24 16:00 91 16 125/74 98 05/07/24 13:59 80 16 05/07/24 12:00 98 F 80 16 115/67 97 Intake and Output 05/07/24 05/08/24 05/08/24 22:59 06:59 14:59 Intake Total 0 Balance 0 Intake: Oral 0 Other: Voiding Method Bedside Commode Bedside Commode Toilet Bedside Commode # Voids 2 1 Weight 77.6 kg GENERAL DESCRIPTION: Middle-aged female lying in bed, no distress. No tachypnea or accessory muscle of respiration use. HEENT: Shows Pallor , no scleral icterus. Oral mucous membrane is dry. No pharyngeal erythema or thrush NECK: Trachea central, no thyromegaly. LUNGS: Unlabored breathing. Decreased breath sound the base no wheeze HEART: S1, S2, regular rate and rhythm. No loud murmur ABDOMEN: Soft, no tenderness , guarding or rigidity, no organomegaly EXTREMITIES: No edema of feet. SKIN: No rash, no masses palpable. NEUROLOGICAL: The patient is awake, alert, oriented x3, mood and affect normal. Results CBC & Chem 7: 05/06/24 15:43 05/06/24 15:43 Labs: Abnormal Lab Results - Last 24 Hours (Table) 05/07/24 Range/Units 17:32 D-Dimer 1.21 H (<0.60) mg/L FEU Assessment and Plan (1) Pneumonia Current Visit: Yes Status: Acute Code(s): J18.9 - PNEUMONIA, UNSPECIFIED ORGANISM SNOMED Code(s): 790988388 Plan: . 1patient with abnormal CT angiogram of the chest that is suspicious for possible atypical pneumonia in this patient who did have a cough and shortness of breath with peripheral groundglass opacity patient did test negative for COVID-19 we will check urine for Legionella antigen check a CRP and a procalcitonin level 2try repeat sputum for Gram stain culture 3patient to continue with Rocephin while waiting for the workup to be completed We will follow on clinical condition and cultures to further adjust medication if needed Thank you for this consultation we will follow the patient along with you Dictation was produced using [employer] dictation software. please excuse any grammatical, word or spelling errors. Time with Patient: Greater than 30
--- NOTE | 2024-05-08 23:59 | PN ---
PROGRESS NOTE SUBJECTIVE: Possible pneumonia, progressing in upper lobes on the CAT scan. No signs of PE. Dr. Ivy saw the patient. His recommendations are, CAT scan is reviewed, D-dimer is 1.21. Pneumonia, cough, congestion, opacities, urine for legionella, possibly could still have COVID. Prognosis guarded. MMODL / IJN: [id number] /
[2024-05-09] MEDS: BUTALB/APAP/CAFF 50-325-40MG TAB PO PRN (09:03)
[2024-05-09] MEDS: LORazepam 1 MG TAB PO PRN (13:46)
--- NOTE | 2024-05-09 17:07 | P.PN ---
Subjective Progress Note Date: 05/09/24 Principal diagnosis: Reason for follow-up is abnormal CT chest question of pneumonia Patient is a 63-year-old female with a past medical history significant for COPD DVT hypertension hyperlipidemia reflux PE patient presenting to the hospital for evaluation of mental status changes patient also have shortness of breath and cough did have CT of the chest which shows peripheral groundglass opacities prompting this consultation. On today's evaluation that is 05/09/2024,the patient remains to be afebrile, patient is on room air not requiring supplemental oxygen and denies any shortness of breath no chest pain or any worsening cough.Patient denies having any nausea or vomiting, no abdominal pain and no diarrhea. Patient did have a COVID testing x 2 negative, did have normal CRP and procalcitonin sputum cultures currently pending Objective - Vital Signs Vital signs: Vital Signs Temp 97.5 F L 05/09/24 11:58 Pulse 86 05/09/24 12:02 Resp 16 05/09/24 11:58 BP 113/68 05/09/24 11:58 Pulse Ox 99 05/09/24 11:58 FiO2 Intake & Output 05/08/24 05/09/24 05/09/24 18:59 06:59 18:59 Intake Total 0 240 Output Total 150 Balance -150 240 Weight 78.1 kg Intake: Oral 0 240 Output: Urine 150 Other: Voiding Method Toilet Toilet Toilet Bedside Commode Bedside Commode Bedside Commode # Voids 1 - Exam GENERAL DESCRIPTION: Middle-age female lying in bed in no distress RESPIRATORY SYSTEM: Unlabored breathing , decreased breath sounds at bases HEART: S1 S2 regular rate and rhythm , ABDOMEN: Soft , no tenderness EXTREMITIES: No edema feet - Labs CBC & Chem 7: 05/06/24 15:43 05/06/24 15:43 Labs: Microbiology - Last 24 Hours (Table) 05/08/24 18:00 Gram Stain - Preliminary Sputum Assessment and Plan (1) Pneumonia Current Visit: Yes Status: Acute Code(s): J18.9 - PNEUMONIA, UNSPECIFIED ORGANISM SNOMED Code(s): 485148887 Plan: . 1patient with abnormal CT angiogram of the chest that is suspicious for possible atypical pneumonia in this patient who did have a cough and shortness of breath with peripheral groundglass opacity patient did test negative for COVID-19 X 2 2sputum cultures currently pending patient did have normal procalcitonin 3patient mention some improvement in symptoms and wILL Continue with Rocephin while waiting for the workup to be completed Dictation was produced using [employer] dictation software. please excuse any grammatical, word or spelling errors. Time with Patient: Less than 30
--- NOTE | 2024-05-09 20:33 | PN ---
PROGRESS NOTE SUBJECTIVE: This 63-year-old white female is having anxiety today, we started her on for anxiety, Ativan 2 mg was given once she is home. O2 is 98% on room air, 130/68, pulse 65, respiratory rate 16 to 18, temp 97.5. She is cleared by Neurology for 3 minutes for pneumonia, consulted Dr. Ivy. She has typical pneumonia, continue Rocephin. Prognosis guarded. Wait for clearance. MMODL / IJN: [id number] /
--- NOTE | 2024-05-10 00:33 | PN ---
PROGRESS NOTE This 63-year-old white female was admitted for CANCELLED DICTATION. MMGERMÁNL / IJN: [id number] /
[2024-05-10 01:34] VITALS: RESP 16
--- NOTE | 2024-05-10 02:03 | P.PN ---
Subjective Progress Note Date: 05/09/24 Patient was seen for a follow-up. No further seizures syncope. No focal symptoms. Patient is laying comfortably in the bed. Patient tolerating Keppra very well. She is noticing popcorn feeling in the head. Objective - Vital Signs Vital signs: Vital Signs Temp 97.8 F 05/09/24 10:11 Pulse 83 05/09/24 11:53 Resp 16 05/09/24 10:11 BP 142/69 05/09/24 10:11 Pulse Ox 98 05/09/24 10:11 FiO2 Intake & Output 05/08/24 05/09/24 05/09/24 18:59 06:59 18:59 Intake Total 0 240 Output Total 150 Balance -150 240 Weight 78.1 kg Intake: Oral 0 240 Output: Urine 150 Other: Voiding Method Toilet Toilet Toilet Bedside Commode Bedside Commode Bedside Commode # Voids 1 - Exam Mental status, speech and language functions are normal. Examination is completely unchanged. - Labs CBC & Chem 7: 05/06/24 15:43 05/06/24 15:43 Labs: Microbiology - Last 24 Hours (Table) 05/08/24 18:00 Gram Stain - Preliminary Sputum Assessment and Plan Assessment: * New onset seizure. Patient came with a syncopal spell and altered mental status, which could potentially be a seizure. However patient had a witnessed seizure in the ER. Patient also had a syncopal versus seizure spell on 04/23/2023. * History of DVT, on Eliquis * Left ICA stenosis, moderate degree per previous carotid Doppler. * Tobacco use Plan: * EEG was normal awake and drowsy. No focal, lateralized or epileptiform act ivity was seen. * Patient given loading dose of Keppra 1500 mg in the ER. We will start Keppra 500 mg twice daily. Continue Keppra. * Patient had an MRI of the brain with and without contrast previously on 09/15/2023, which revealed performed showed some white matter disease, with no acute process. No need to repeat MRI. * Carotid Doppler revealed no evidence for hemodynamically significant stenosis. Antegrade flow in both vertebral arteries. * CT of the chest revealed no pulmonary embolism. Peripheral groundglass pulmonary opacities, consistent with atypical pulmonary infection such as COVID-19. Patient on ceftriaxone. * Resume Eliquis. * Recommended no driving for 6 months, climbing ladders, operate dangerous machineries or unsupervised swimming. * Neurologically clear. * Recommend follow-up with neurologist outpatient. Discussed with patient's nurse.
--- NOTE | 2024-05-10 22:23 | P.PN ---
Subjective Progress Note Date: 05/10/24 Principal diagnosis: Reason for follow-up is abnormal CT chest question of pneumonia Patient is a 63-year-old female with a past medical history significant for COPD DVT hypertension hyperlipidemia reflux PE patient presenting to the hospital for evaluation of mental status changes patient also have shortness of breath and cough did have CT of the chest which shows peripheral groundglass opacities prompting this consultation. On today's evaluation that is 05/10/2024, the patient continues to be afebrile, the patient is on room air and breathing comfortably, the Pt denies having any chest pain or any worsening cough, the patient denies having any abdominal pain no vomiting or any diarrhea, patient mention feeling better today. No new lab has been obtained today sputum cultures currently pending Objective - Vital Signs Vital signs: Vital Signs Temp 98.4 F 05/10/24 11:46 Pulse 94 05/10/24 12:05 Resp 16 05/10/24 11:46 BP 101/66 05/10/24 11:46 Pulse Ox 95 05/10/24 11:46 FiO2 Intake & Output 05/09/24 05/10/24 05/10/24 18:59 06:59 18:59 Intake Total 240 Balance 240 Intake: Oral 240 Other: Voiding Method Toilet Toilet Toilet Bedside Commode Bedside Commode # Voids 1 3 - Exam GENERAL DESCRIPTION: Middle-age female lying in bed in no distress RESPIRATORY SYSTEM: Unlabored breathing , decreased breath sounds at bases HEART: S1 S2 regular rate and rhythm , ABDOMEN: Soft , no tenderness EXTREMITIES: No edema feet - Labs CBC & Chem 7: 05/06/24 15:43 05/06/24 15:43 Labs: Microbiology - Last 24 Hours (Table) 05/08/24 18:00 Gram Stain - Preliminary Sputum Sputum Culture - Preliminary Assessment and Plan (1) Pneumonia Current Visit: Yes Status: Acute Code(s): J18.9 - PNEUMONIA, UNSPECIFIED ORGANISM SNOMED Code(s): 664691706 Plan: . 1patient with abnormal CT angiogram of the chest that is suspicious for possible atypical pneumonia in this patient who did have a cough and shortness of breath with peripheral groundglass opacity patient did test negative for COVID-19 X 2 2sputum cultures currently pending, patient did have some clinical improvement to continue with Rocephin while waiting for the culture to finalize Dictation was produced using [employer] dictation software. please excuse any grammatical, word or spelling errors. Time with Patient: Less than 30
--- NOTE | 2024-05-11 00:26 | PN ---
PROGRESS NOTE SUBJECTIVE: This is a 63-year-old white female, question of pneumonia, treated with IV Rocephin and azithromycin, peripheral ground-glass opacities on CAT scan. Seizures have been negative. Negative COVID x2. OBJECTIVE: VITAL SIGNS: Blood pressure 113/68, O2 99, pulse 86, respiratory rate 16 to 18, and temperature 97.5. CARDIOVASCULAR: S1, S2. LUNGS: Scattered rhonchi and wheeze. ABDOMEN: Soft. EXTREMITIES: No edema. ASSESSMENT: Community-acquired pneumonia, atypical CAT scan of the chest. Cultures pending. Continue current treatment. Prognosis guarded. MMODL / IJN: [id number] /
[2024-05-11 12:36] VITALS: BP 104/67; PULSE 77; TEMP 98.4
[2024-05-11 12:55] VITALS: BMI 27.8
[2024-05-11] MEDS: CEFDINIR 300 MG CAP PO STA (13:33)
--- NOTE | 2024-05-12 08:17 | P.PN ---
Subjective Progress Note Date: 05/11/24 Principal diagnosis: Reason for follow-up is abnormal CT chest question of pneumonia Patient is a 63-year-old female with a past medical history significant for COPD DVT hypertension hyperlipidemia reflux PE patient presenting to the hospital for evaluation of mental status changes patient also have shortness of breath and cough did have CT of the chest which shows peripheral groundglass opacities prompting this consultation. On today's evaluation that is 05/11/2024, Patient is afebrile patient is currently on room air and denies having any shortness of breath, the patient denies any chest pain or cough, the patient denies any nausea vomiting did not have any abdominal pain and no diarrhea, no new symptoms. No new lab has been obtained today sputum culture negative so far Objective - Vital Signs Vital signs: Vital Signs Temp 98.4 F 05/11/24 12:07 Pulse 77 05/11/24 12:07 Resp 16 05/11/24 12:07 BP 104/67 05/11/24 12:07 Pulse Ox 95 05/11/24 12:07 FiO2 Intake & Output 05/10/24 05/11/24 05/11/24 18:59 06:59 18:59 Weight 78.1 kg Other: Voiding Method Toilet Toilet # Voids 3 3 - Exam GENERAL DESCRIPTION: Middle-age female lying in bed in no distress RESPIRATORY SYSTEM: Unlabored breathing , decreased breath sounds at bases HEART: S1 S2 regular rate and rhythm , ABDOMEN: Soft , no tenderness EXTREMITIES: No edema feet - Labs CBC & Chem 7: 05/06/24 15:43 05/06/24 15:43 Labs: Microbiology - Last 24 Hours (Table) 05/08/24 18:00 Gram Stain - Final Sputum Sputum Culture - Final Assessment and Plan (1) Pneumonia Status: Acute Code(s): J18.9 - PNEUMONIA, UNSPECIFIED ORGANISM SNOMED Code(s): 030607717 Plan: . 1patient with abnormal CT angiogram of the chest that is suspicious for possible atypical pneumonia in this patient who did have a cough and shortness of breath with peripheral groundglass opacity patient did test negative for COVID-19 X 2 2sputum cultures so far negative, patient did have some clinical improvement to continue with Rocephin and consider short course of oral Ceftin on discharge Dictation was produced using [employer] dictation software. please excuse any grammatical, word or spelling errors. Time with Patient: Less than 30
== END 2024-05-11 15:17 | disposition home or self-care (01) | DRG 100 ==
LOC: EC 14:49 → 3SCARD 18:19 → 5NMEDONC 05-09 09:54
PROVIDERS: ADMIT Family Medicine; ATTEND Family Medicine
PROC: 4A10X4Z Monitoring of Central Nervous Electrical Activity, External Approach (ICD-10-PCS; principal; 2024-05-07)
DX: R56.9 Unspecified convulsions (principal); J18.9 Pneumonia, unspecified organism; J44.0 Chronic obstructive pulmonary disease with (acute) lower respiratory infection; K21.9 Gastro-esophageal reflux disease without esophagitis; I10 Essential (primary) hypertension; F17.210 Nicotine dependence, cigarettes, uncomplicated; F31.9 Bipolar disorder, unspecified; E78.5 Hyperlipidemia, unspecified; F20.9 Schizophrenia, unspecified; Z86.711 Personal history of pulmonary embolism; Z88.8 Allergy status to other drugs, medicaments and biological substances; Z91.040 Latex allergy status; Z91.048 Other nonmedicinal substance allergy status; Z79.01 Long term (current) use of anticoagulants; Z79.82 Long term (current) use of aspirin; Z79.899 Other long term (current) drug therapy; Z82.49 Family history of ischemic heart disease and other diseases of the circulatory system; Z86.718 Personal history of other venous thrombosis and embolism; Z86.73 Personal history of transient ischemic attack (TIA), and cerebral infarction without residual deficits; Z96.1 Presence of intraocular lens; Z90.49 Acquired absence of other specified parts of digestive tract; Z98.42 Cataract extraction status, left eye; Z98.41 Cataract extraction status, right eye; Z87.19 Personal history of other diseases of the digestive system
CPT/HCPCS: 36415; 70450; 71275; 80053; 80306; 84145; 85025; 85379; 86140; 87070; 87205; 87449; 87635; 93005; 93880; 94640; 95816; 96374; 96375; 99291

== ENCOUNTER 2024-06-18 06:50 | Inpatient (IN) | payer MEDICARE ==
[2024-06-18] MEDS ORDERED: LIDOCAINE 1% (10MG/ML) FOR IV START INTRADERMA PRN (07:30)
[2024-06-18 08:02] LABS: HCT 33.4 % (34.0-46.0); HGB 11.3 gm/dL (11.4-16.0); MCH 30.2 pg (25.0-35.0); MCHC 33.9 g/dL (31.0-37.0); MCV 89.1 fL (80.0-100.0); Mean Platelet Volume 8.8; Platelet Count 167 k/uL (150-450); RBC 3.75 m/uL (3.80-5.40); RDW 13.9 % (11.5-15.5); WBC 4.1 k/uL (3.8-10.6)
[2024-06-18] MEDS: MIDAZOLAM 2 MG/2 ML VIAL IV PRN (08:12)
[2024-06-18] MEDS: ONDANSETRON 4 MG/2 ML VIAL IVP ONE (08:13)
[2024-06-18] MEDS: DEXAMETHASONE SOD PHOSPHATE 4 MG/ML 1 ML VIAL IV ONE (08:14)
[2024-06-18] MEDS: LACTATED RINGERS 1,000 ML IV SCH (08:15)
[2024-06-18] MEDS: IV FLUID CONTINUATION 1,000 ML IV ONE (08:16)
[2024-06-18] MEDS: ACETAMINOPHEN TAB 500 MG TAB PO PRN (08:22)
[2024-06-18] MEDS: HEPARIN SODIUM,PORCINE 5,000 UNIT/ML 1 ML VIAL SQ PRN (08:22)
--- NOTE | 2024-06-18 08:24 | P.ANPRN ---
Procedure Note - Anesthesia - Nerve Block Performed Bilateral Erector Spinae Single Time Out Performed: Yes Date of Procedure: 06/18/24 Procedure Start Time: 08:10 (15) Procedure Stop Time: 08:15 Location of Patient: PreOp Indication: Acute Post-Operative Pain, Analgesia, Requested by Surgeon Sedation Type: Sedate with meaningful contact maintained Preparation: Sterile Prep Position: Prone Catheter: None Needle Types: Pajunk Needle Gauge: 21 Ultrasound used to visualize needle placement: Yes Ultrasound used to observe medication spread: Yes Injectate: 0.5% Ropivacaine (see comment for volume) ([id number]+decadron 4mg---Each side. T10 level bilat.) Blood Aspirated: No Pain Paresthesia on Injection Noted: No Resistance on Injection: Normal Image Stored and Saved: Yes Events: Uneventful and Well Tolerated
[2024-06-18] MEDS ORDERED: fentaNYL (PF) 50 MCG/ML 2 ML AMP ONE (08:40)
[2024-06-18] MEDS ORDERED: SUCCINYLCHOLINE CHLORIDE 200 MG/10 ML VIAL IV ONE (08:40)
[2024-06-18] MEDS ORDERED: ROPIVACAINE 5 MG/ML 30 ML VIAL ONE (08:40)
[2024-06-18] MEDS ORDERED: LIDOCAINE 1% INJ 10MG/ML (20 ML MDV) ONE (08:40)
[2024-06-18] MEDS ORDERED: ROCURONIUM 10 MG/ML (5 ML VIAL) IV ONE (08:40)
[2024-06-18] MEDS ORDERED: HYDROmorphone (PF) 1 MG/ML ONE (08:40)
[2024-06-18] MEDS ORDERED: NEOSTIGMINE 1 MG/ML 10 ML VIAL ONE (08:40)
[2024-06-18] MEDS ORDERED: DEXAMETHASONE SOD PHOSPHATE 4 MG/ML 1 ML VIAL ONE (08:40)
[2024-06-18] MEDS ORDERED: KETOROLAC 15 MG/ML 1 ML VIAL ONE (08:40)
[2024-06-18] MEDS ORDERED: PROPOFOL 10 MG/ML 20 ML VIAL IV ONE (08:40)
[2024-06-18] MEDS ORDERED: GLYCOPYRROLATE 0.2 MG/ML 2 ML VIAL ONE (08:40)
[2024-06-18] MEDS: LIDOCAINE 1%-EPI 1:100,000 20 ML VIAL SQ ONE (09:04)
--- NOTE | 2024-06-18 09:42 | P.OP ---
Date of Procedure: 06/18/24 Preoperative Diagnosis: Incisional hernia Postoperative Diagnosis: Incisional hernia Procedure(s) Performed: Open repair of incisional hernia with Prolene mesh Anesthesia: LUCRECIA Surgeon: Kade Barnes Estimated Blood Loss (ml): 5 Pathology: none sent Condition: stable Disposition: PACU Description of Procedure: Patient is placed on the operative table in the supine position. She received general anesthesia. Her abdomen was prepped sterile fashion. The patient had a incisional hernia located along her midline scar. Skin incised. Using blunt and sharp dissection electrocautery the 37 assisted free. And then the fascia external oblique was exposed using electrocautery. The hernia defect measured approximately 15 cm in length and 10 cm diameter. Using interrupted 0 Ethibond suture in a [id number]-pi-movet fashion the fascia was reapproximated. And then the repair was buttressed with another 1 STRATAFIX suture. A 6 x 6 inch piece of Prolene mesh placed abdominal. Secured with secure strap tacker. The JOSÉ ANTONIO drain was then placed over top of the mesh and brought out through separate stab incision. It was secured with 2-0 nylon. Melody's fascia closed with 2-0 Vicryl. Skin was closed ochoa. Patient Toller procedure well. She was sent to recovery in stable condition.
[2024-06-18] MEDS: HYDROmorphone 0.5 MG/0.5 ML SYRINGE IVP PRN (10:00)
[2024-06-18] MEDS ORDERED: ONDANSETRON 4 MG/2 ML VIAL IVP PRN (10:44)
[2024-06-18] MEDS: LACTATED RINGERS 1,000 ML IV ONE (12:04)
[2024-06-18] MEDS: HYDROmorphone 1 MG/ML 1 ML SYRINGE IVP PRN (14:43)
[2024-06-18] MEDS ORDERED: BAYER BACK AND BODY PO PRN (14:46)
[2024-06-18] MEDS ORDERED: ACETAMINOPHEN TAB 500 MG TAB PO PRN (14:46)
[2024-06-18] MEDS: IPRATROPIUM-ALBUTEROL 3 ML NEB INHALATION SCH (16:27)
[2024-06-18] MEDS: SUCRALFATE 1 GM TAB PO SCH (16:56)
[2024-06-18] MEDS: HYDROcodone/APAP 5-325MG 1 EACH TAB PO PRN (16:56)
[2024-06-18] MEDS: DEXTROSE 5%-LACTATED RINGERS 1,000 ML IV SCH (19:32)
[2024-06-18] MEDS: levETIRAcetam 500 MG TAB PO SCH (21:03)
[2024-06-18] MEDS: busPIRone HCl 5 MG TAB PO SCH (21:03)
[2024-06-18] MEDS: DULoxetine HCL 30 MG CAPSULE.DR PO SCH (21:03)
--- NOTE | 2024-06-18 22:09 | PN ---
PROGRESS NOTE SUBJECTIVE: The patient is status post hernia repair by Dr. Barnes, for medical management consult. History of COPD, depression, neuropathy, anxiety. HOME MEDICATIONS: Include: 1. DuoNeb t.i.d. 2. Keppra for seizures, 500 q.12h. 3. Cymbalta 30 q.h.s. 4. BuSpar 5 b.i.d. 5. Aspirin 81 daily. 6. Nicotine/Habitrol patch 21 mg daily. 7. Protonix 40 daily. 8. Carafate 1 g t.i.d. OBJECTIVE: VITAL SIGNS: Temp 97.4, blood pressure is 120s over 50s, O2 of 95 on 2 L. CARDIOVASCULAR: S1, S2. LUNGS: Transmitted upper sounds. GI: Soft. HEMATOLOGY: Negative Homans. PSYCH: Fair mood and affect. ASSESSMENT: 1. Status post hernia repair. 2. Chronic obstructive pulmonary disease. 3. Neuropathy. 4. Seizures. PLAN: Continue current treatments. Prognosis guarded. MMODL / IJN: [id number] /
[2024-06-19] MEDS: PANTOPRAZOLE 40 MG TABLET PO SCH (09:13)
[2024-06-19] MEDS: ASPIRIN 81 MG PO SCH (09:13)
[2024-06-19] MEDS: NICOTINE 21MG/24HR PATCH TRANSDERM SCH (09:20)
--- NOTE | 2024-06-19 12:01 | PN ---
PROGRESS NOTE SUBJECTIVE: Judy Saba is doing better, status post hernia repair. She had a lot of gas with abdominal pain and she was kept overnight. OBJECTIVE: VITAL SIGNS: She is saturating 98 on room air, 92 on room air yesterday. Temperature 98.1, blood pressure 115/69, pulse 79, respiratory rate 16 to 18. CARDIOVASCULAR: S1, S2. LUNGS: Clear. GI: Soft. ASSESSMENT: 1. Status post hernia repair. Vital signs appear to be doing good. 2. Chronic obstructive pulmonary disease. 3. Chronic pain syndrome. PLAN: Continue current treatments. Possible discharge when cleared by Dr. Barnes. MMODL / IJN: [id number] /
--- NOTE | 2024-06-19 12:58 | P.PN ---
Subjective Progress Note Date: 06/19/24 CHIEF COMPLAINT: Incisional hernia HISTORY OF PRESENT ILLNESS: The patient is a 64-year-old female admitted for incisional hernia repair. She reports moderate pain following surgery. She reports low appetite. ROS: No reports of nausea and vomiting. No bowel movements. No fevers or chills. No new chest pain. No productive sputum. History of SMA syndrome. PHYSICAL EXAM: VITAL SIGNS: Reviewed CONSTITUTIONAL: Well developed and in no acute distress. EYES: Conjuctivae without sclera icterus. Extraocular movements grossly intact. HEAD, EARS, NOSE, THROAT: Moist buccal mucosa. Head is atraumatic, normocephalic. Hears conversational speech. No nasal drainage. RESPIRATORY: Non-labored respirations and equal bilateral excursions. CARDIOVASCULAR: Palpable 2+ radial pulses. ABDOMEN: Abdominal binder present. Prevena incisional wound VAC present. JOSÉ ANTONIO drain serosanguineous. MUSCULOSKELETAL: No gross deformity of the lower extremities noted. No clubbing. No cyanosis. SKIN: Good skin turgor. Well perfused. NEUROLOGIC: Cranial nerves II through XII grossly intact. No focal or la teralizing signs. PSYCH: Appropriate affect. Alert and oriented to person, place and time. CLINICAL LABS: Reviewed. Hemoglobin demonstrates 11.3, anemia. ASSESSMENT: 1. Incisional hernia 2. History of SMA syndrome 3. Postoperative pain, expected finding PLAN: 1. Continue hospitalization due to moderate severe postsurgical pain. 2. To address postsurgical pain, scheduled Tylenol 1000 mg every 6, scheduled Toradol 15 mg every 6 pending renal function, scheduled Flexeril 10 mg 3 times daily Objective - Vital Signs Vital signs: Vital Signs Temp 98.1 F 06/19/24 07:23 Pulse 84 06/19/24 12:19 Resp 15 06/19/24 07:23 BP 115/69 06/19/24 07:23 Pulse Ox 93 L 06/19/24 07:23 FiO2 Intake & Output 06/18/24 06/19/24 06/19/24 18:59 06:59 18:59 Intake Total 1250 Output Total 75 50 Balance 1175 -50 Weight 73.3 kg Intake: IV 1250 Output: Drainage 70 50 Right Abdomen 70 50 Estimated Blood Loss 5 Other: Voiding Method Toilet # Voids 1 2 - Labs CBC & Chem 7: 06/18/24 07:55
[2024-06-19] MEDS: KETOROLAC 15 MG/ML 1 ML VIAL IVP SCH (14:28)
[2024-06-19] MEDS: CYCLOBENZAPRINE 10 MG TAB PO SCH (16:49)
[2024-06-19] MEDS: ACETAMINOPHEN TAB 500 MG TAB PO SCH (16:50)
[2024-06-20 11:34] LABS: Basophils % (A) 0 %; Eosinophils # (A) 0.2 k/uL (0-0.7); Eosinophils % (A) 4 %; HCT 34.1 % (34.0-46.0); HGB 11.3 gm/dL (11.4-16.0); Lymphocytes # (A) 1.8 k/uL (1.0-4.8); Lymphocytes % (A) 39 %; MCH 29.9 pg (25.0-35.0); MCHC 33.2 g/dL (31.0-37.0); MCV 89.9 fL (80.0-100.0); Mean Platelet Volume 9.1; Monocytes # (A) 0.2 k/uL (0-1.0); Monocytes % (A) 5 %; Neutrophils # (A) 2.4 k/uL (1.3-7.7); Neutrophils % (A) 50 %; Platelet Count 162 k/uL (150-450); RBC 3.79 m/uL (3.80-5.40); WBC 4.7 k/uL (3.8-10.6)
--- NOTE | 2024-06-20 11:40 | PN ---
PROGRESS NOTE SUBJECTIVE: The patient is kept in the hospital due to multiple pain in her abdomen, currently here. OBJECTIVE: VITAL SIGNS: She is at 94 on room air. Blood pressure 127/68, temperature 98.4, pulse 71, respiratory rate 16. CARDIOVASCULAR: S1, S2. LUNGS: Clear. GI: Soft. Seen by Dr. Frazier, status post incisional hernia. History of SMA syndrome. Postoperative pain, expected finding, moderate to severe postsurgical pain, they were Tylenol and Toradol. Check renal function, on Flexeril. Prognosis guarded, possible go home when cleared. MMODL / IJN: [id number] /
[2024-06-20 11:48] LABS: ALT 13 U/L (4-34); AST 21 U/L (14-36); African American GFR (CKD) >90 (>60 ml/min/1.73 sqM); Albumin 2.9 g/dL (3.5-5.0); Albumin/Globulin Ratio 1.3; Alkaline Phosphatase 79 U/L (38-126); Anion Gap 2 mmol/L; Blood Urea Nitrogen 2 mg/dL (7-17); Calcium 8.6 mg/dL (8.4-10.2); Carbon Dioxide 29 mmol/L (22-30); Chloride 106 mmol/L (98-107); Globulin 2.2 g/dL; Glucose 95 mg/dL (74-99); Lipase 27 U/L (23-300); Non-African American GFR(CKD) >90 (>60 ml/min/1.73 sqM); Potassium 3.8 mmol/L (3.5-5.1); Sodium 137 mmol/L (137-145); Total Bilirubin 0.2 mg/dL (0.2-1.3); Total Protein 5.1 g/dL (6.3-8.2)
[2024-06-20] MEDS: IPRATROPIUM-ALBUTEROL 3 ML NEB INHALATION SCH (12:10)
--- NOTE | 2024-06-20 14:38 | P.PN ---
Subjective Progress Note Date: 06/20/24 CHIEF COMPLAINT: Incisional hernia HISTORY OF PRESENT ILLNESS: The patient is a 64-year-old female admitted for incisional hernia repair. She stayed due to severe postoperative pain. Since initiation of nonnarcotic medication Toradol, Tylenol and Flexeril, her pain is improved. She reports moderate fatigue. She is tolerating diet. ROS: No reports of nausea and vomiting. No fevers or chills. No new chest pain. History of SMA syndrome. PHYSICAL EXAM: VITAL SIGNS: Reviewed CONSTITUTIONAL: Well developed and in no acute distress. EYES: Conjuctivae without sclera icterus. Extraocular movements grossly intact. HEAD, EARS, NOSE, THROAT: Moist buccal mucosa. Head is atraumatic, normoceph alic. Hears conversational speech. No nasal drainage. RESPIRATORY: Non-labored respirations and equal bilateral excursions. CARDIOVASCULAR: Palpable 2+ radial pulses. ABDOMEN: JOSÉ ANTONIO serosanguineous. Abdominal binder present. MUSCULOSKELETAL: No gross deformity of the lower extremities noted. No clubbing. No cyanosis. SKIN: Good skin turgor. Well perfused. NEUROLOGIC: Cranial nerves II through XII grossly intact. No focal or lateralizing signs. PSYCH: Appropriate affect. Alert and oriented to person, place and time. CLINICAL LABS: Reviewed. Repeat hemoglobin today 11.3 over the last 24 to 48 hours, anemia ASSESSMENT: 1. Incisional hernia 2. History of SMA syndrome 3. Postoperative pain, expected finding PLAN: 1. Continue with Tylenol and Toradol including Flexeril. 2. Disposition to home 24 hours Objective - Vital Signs Vital signs: Vital Signs Temp 97.6 F 06/20/24 13:21 Pulse 82 06/20/24 13:21 Resp 16 06/20/24 13:21 BP 161/82 06/20/24 13:21 Pulse Ox 93 L 06/20/24 13:21 FiO2 Intake & Output 06/19/24 06/20/24 06/20/24 18:59 06:59 18:59 Output Total 40 40 Balance -40 -40 Output: Drainage 40 40 Right Abdomen 40 40 Other: Voiding Method Toilet Toilet # Voids 4 2 - Labs CBC & Chem 7: 06/20/24 11:17 06/20/24 11:17 Labs: Abnormal Lab Results - Last 24 Hours (Table) 06/20/24 06/20/24 Range/Units 11:17 11:17 RBC 3.79 L (3.80-5.40) m/uL Hgb 11.3 L (11.4-16.0) gm/dL BUN 2 L (7-17) mg/dL Total Protein 5.1 L (6.3-8.2) g/dL Albumin 2.9 L (3.5-5.0) g/dL
--- NOTE | 2024-06-21 14:46 | P.DS ---
Providers Date of admission: 06/18/24 06:51 Expected date of discharge: 06/21/24 Attending physician: Kade Barnes Consults: 06/18/24 10:44 Consult Physician Routine Consulting Provider: Louie Baker Consult Reason/Comments: medical management Do you want consulting provider notified?: Yes Primary care physician: Louie Baker [facility] Course: Discharge diagnosis 1. Incisional hernia Hospital course This is a 64-year-old female with history of incisional hernia status post open repair of incisional hernia with Prolene mesh. Her pain is controlled. She is tolerating diet. She is having bowel movements. Afebrile. She has been up and ambulating. She is stable for discharge. Please refer to chart for any further details. Physician Commercial Administrator note has been reviewed by physician. Signing provider agrees with the documented findings, assessment, and plan of care. Patient Condition at Discharge: Stable Plan - Discharge Summary Discharge Rx Participant: No New Discharge Prescriptions: New Docusate [Colace] 100 mg PO BID #20 capsule Ibuprofen [Motrin] 600 mg PO Q6HR PRN #40 tab PRN Reason: Pain Acetaminophen Tab [Tylenol] 650 mg PO Q6H #30 tab oxyCODONE HCL [OxyIR] 5 mg PO Q6H PRN 3 Days #10 tab PRN Reason: Pain Continue Aspirin 81 mg PO DAILY Ipratropium-Albuterol Nebulize [Duoneb 0.5 mg-3 mg/3 ml Soln] 3 ml INHALATION RT-QID 30 Days #120 each Nicotine 21Mg/24Hr Patch [Habitrol] 1 patch TRANSDERM DAILY 30 Days #30 patch levETIRAcetam [Keppra] 500 mg PO Q12HR 90 Days #180 tab Nystatin 100,000 Unit/gm Powd [Mycostatin Powder] 1 applic TOPICAL TID 10 Days #150 ml Sucralfate [Carafate] 1 gm PO TID busPIRone HCL 5 mg PO BID Pantoprazole [Protonix] 40 mg PO DAILY Manjit Back And [employer] 1 tab PO DIRECTED PRN PRN Reason: Pain Apixaban [Eliquis] 5 mg PO BID 30 Days #60 tab DULoxetine HCL [Cymbalta] 30 mg PO HS 30 Days #30 cap Discontinued Acetaminophen [Tylenol Extra Strength] 1,000 mg PO DIRECTED PRN PRN Reason: Pain Discharge Medication List Aspirin 81 mg PO DAILY 04/12/24 [History] Apixaban [Eliquis] 5 mg PO BID 30 Days #60 tab 05/11/24 [Rx] DULoxetine HCL [Cymbalta] 30 mg PO HS 30 Days #30 cap 05/11/24 [Rx] Ipratropium-Albuterol Nebulize [Duoneb 0.5 mg-3 mg/3 ml Soln] 3 ml INHALATION RT-QID 30 Days #120 each 05/11/24 [Rx] Nicotine 21Mg/24Hr Patch [Habitrol] 1 patch TRANSDERM DAILY 30 Days #30 patch 05/11/24 [Rx] Nystatin 100,000 Unit/gm Powd [Mycostatin Powder] 1 applic TOPICAL TID 10 Days #150 ml 05/11/24 [Rx] levETIRAcetam [Keppra] 500 mg PO Q12HR 90 Days #180 tab 05/11/24 [Rx] Manjit Back And [employer] 1 tab PO DIRECTED PRN 06/16/24 [History] Pantoprazole [Protonix] 40 mg PO DAILY 06/16/24 [History] Sucralfate [Carafate] 1 gm PO TID 06/16/24 [History] busPIRone HCL 5 mg PO BID 06/16/24 [History] Acetaminophen Tab [Tylenol] 650 mg PO Q6H #30 tab 06/18/24 [Rx] Docusate [Colace] 100 mg PO BID #20 capsule 06/18/24 [Rx] Ibuprofen [Motrin] 600 mg PO Q6HR PRN #40 tab 06/18/24 [Rx] oxyCODONE HCL [OxyIR] 5 mg PO Q6H PRN 3 Days #10 tab 06/18/24 [Rx] Follow up Appointment(s)/Referral(s): Kade Barnes MD [STAFF PHYSICIAN] - 06/24/24 3:10 pm Patient Instructions/Handouts: *Surgery [facility] - (Anesthesia) Discharge Instructions Outpatient Surgery, Ventral Hernia Repair (DC) Activity/Diet/Wound Care/Special Instructions: No driving while taking OxyIR No lifting over 10 pounds Shower daily. No soaking or tub baths for 2 weeks Very light activity until you are reevaluated at your follow up appointment with your surgeon Discharge Disposition: HOME SELF-CARE
[2024-06-21 15:05] VITALS: BP 131/71; PULSE 95; RESP 17; TEMP 98.7
== END 2024-06-21 16:26 | disposition home or self-care (01) | DRG 355 ==
LOC: OR 06:50 → 4SSUR 06:51 → OR 06:51 → 4SSUR 09:45
PROVIDERS: ADMIT Surgery; ATTEND Surgery
PROC: 0WUF0JZ Supplement Abdominal Wall with Synthetic Substitute, Open Approach (ICD-10-PCS; principal; 2024-06-18 08:45)
DX: K43.2 Incisional hernia without obstruction or gangrene (principal); R56.9 Unspecified convulsions; G62.9 Polyneuropathy, unspecified; J44.9 Chronic obstructive pulmonary disease, unspecified; G89.4 Chronic pain syndrome; F32.A Depression, unspecified; G89.18 Other acute postprocedural pain; F41.9 Anxiety disorder, unspecified; Z79.82 Long term (current) use of aspirin; Z79.899 Other long term (current) drug therapy; Z91.040 Latex allergy status

== ENCOUNTER 2024-07-01 14:03 | Emergency (ER) | payer MEDICARE ==
[2024-07-01 14:11] VITALS: TEMP 98.8
--- NOTE | 2024-07-01 15:09 | ED ---
Recheck HPI - General Chief Complaint: Recheck/Abnormal Lab/Rx Stated Complaint: post op complications Time Seen by Provider: 07/01/24 14:21 Source: patient, RN notes reviewed Mode of arrival: ambulatory Limitations: no limitations - History of Present Illness Initial Comments: This is a 64-year-old female presents emergency department chief complaint of potential postoperative complications. Patient had a hernia repair completed on 06/18/[address] Barnes, and has a follow-up appointment scheduled on 07/06/24. She is concerned as the JOSÉ ANTONIO drainage tube that is in place has been causing her a mild amount of pain. Additionally the tube this morning states that it moved and is concerned that this may be out of place. She denies fevers, chills, nausea, vomiting. - Related Data Home Medications Medication Instructions Recorded Confirmed Aspirin 81 mg PO DAILY 04/12/24 06/18/24 Manjit [facility] And [employer] 1 tab PO DIRECTED PRN 06/16/24 06/18/24 Pantoprazole [Protonix] 40 mg PO DAILY 06/16/24 06/18/24 Sucralfate [Carafate] 1 gm PO TID 06/16/24 06/18/24 busPIRone HCL 5 mg PO BID 06/16/24 06/18/24 Previous Rx's Medication Instructions Recorded Apixaban [Eliquis] 5 mg PO BID 30 Days #60 tab 05/11/24 DULoxetine HCL [Cymbalta] 30 mg PO HS 30 Days #30 cap 05/11/24 Ipratropium-Albuterol Nebulize 3 ml INHALATION RT-QID 30 Days 05/11/24 [Duoneb 0.5 mg-3 mg/3 ml Soln] #120 each Nicotine 21Mg/24Hr Patch [Habitrol] 1 patch TRANSDERM DAILY 30 Days 05/11/24 #30 patch Nystatin 100,000 Unit/gm Powd 1 applic TOPICAL TID 10 Days #150 05/11/24 [Mycostatin Powder] ml levETIRAcetam [Keppra] 500 mg PO Q12HR 90 Days #180 tab 05/11/24 Acetaminophen Tab [Tylenol] 650 mg PO Q6H #30 tab 06/18/24 Docusate [Colace] 100 mg PO BID #20 capsule 06/18/24 Ibuprofen [Motrin] 600 mg PO Q6HR PRN #40 tab 06/18/24 oxyCODONE HCL [OxyIR] 5 mg PO Q6H PRN 3 Days #10 tab 06/18/24 clindamycin HCL 300 mg PO QID #40 cap 07/01/24 Allergies Allergy/AdvReac Type Severity Reaction Status Date / Time hydrogen peroxide Allergy rash and Verified 07/01/24 14:11 skin burn Latex, Natural Rubber Allergy Swelling Verified 07/01/24 14:11 metronidazole Allergy Rash/Hives Verified 07/01/24 14:11 fentanyl AdvReac decreased Verified 07/01/24 14:11 bp isosorbide AdvReac Rapid Verified 07/01/24 14:11 Heart Rate Review of Systems ROS Statement: Those systems with pertinent positive or pertinent negative responses have been documented in the HPI. ROS Other: All systems not noted in ROS Statement are negative. Past Medical History Past Medical History: Chest Pain / Angina, COPD, Deep Vein Thrombosis (DVT), Eye Disorder, GERD/Reflux, Hearing Disorder / Deafness, Memory Impairment, Osteoarthritis (OA), Pneumonia, Pulmonary Embolus (PE), Seizure Disorder, Skin Disorder, Syncope Additional Past Medical History / Comment(s): Chronic back and bilateral knee pain, DDD, cervical/back "nerve damage", "low BP", DVT right thigh, bilateral PEs in 2010 and 2014, migraines, osteoporosis, IBS, vertigo at times, R wrist 2 cysts, pt states since cataract surgery her vision has declined. CVA per CT per pt. Last Seizure -04/2024 Pneumonia 04/2024. yeast rash under breast. rt hand edematous. insomnia History of Any Multi-Drug Resistant Organisms: MRSA Date of last positivie culture/infection: >30 yrs ago MDRO Source:: left hand Past Surgical History: Appendectomy, Cholecystectomy, Heart Catheterization Additional Past Surgical History / Comment(s): EGD/COLONOSCOPY/POLYPECTOMY- BENIGN, cardiac cath 06/10/16-normal, back/bilateral knee injections. epidural s teroid inj -back, bilateral cataract removals/lens implants. intestinal surgery for "vein wrapped around intestine" Past Anesthesia/Blood Transfusion Reactions: No Reported Reaction Additional Past Anesthesia/Blood Transfusion Reaction / Comment(s): Pt has claustrophobia. Past Psychological History: Bipolar, Depression, Schizophrenia Smoking Status: Former smoker Past Alcohol Use History: None Reported Past Drug Use History: Marijuana - Past Family History Mother Family Medical History: Cancer, COPD, Hyperlipidemia, Hypertension Additional Family Medical History / Comment(s): Mother of LUNG CANCER at the age of 74yrs. Father Family Medical History: CVA/TIA, Hypertension Additional Family Medical History / Comment(s): Father had 2 CVAs and from the second one at the age of 52yrs. He was an alcoholic. General Exam Limitations: no limitations General appearance: alert, in no apparent distress Head exam: Present: atraumatic, normocephalic, normal inspection Eye exam: Present: normal appearance, PERRL, EOMI. Absent: scleral icterus, conjunctival injection, periorbital swelling Respiratory exam: Present: normal lung sounds bilaterally. Absent: respiratory distress, wheezes, rales, rhonchi, stridor Cardiovascular Exam: Present: regular rate, normal rhythm, normal heart sounds. Absent: systolic murmur, diastolic murmur, rubs, gallop, clicks GI/Abdominal exam: Present: soft, tenderness (RLQ JOSÉ ANTONIO tube in place, mild surrounding erythema, drain is working appropirately with no discharge from site), normal bowel sounds, other (midline post surgical incision with ochoa in place, no erythema or active purulence). Absent: distended, guarding, rebound, rigid Extremities exam: Present: normal inspection, full ROM, normal capillary refill. Absent: tenderness, pedal edema, joint swelling, calf tenderness Back exam: Present: normal inspection Skin exam: Present: warm, dry, intact, normal color. Absent: rash Course Vital Signs 07/01/24 07/01/24 14:08 15:54 Temperature 98.8 F Pulse Rate 111 H 78 Respiratory 20 18 Rate Blood Pressure 119/65 130/82 O2 Sat by Pulse 97 99 Oximetry Medical Decision Making - Medical Decision Making Was pt. sent in by a medical professional or institution (, PA, [employer], urgent care, hospital, or halfway...) When possible be specific @ -No Did you speak to anyone other than the patient for history (EMS, parent, family, police, friend...)? What history was obtained from this source @ -No Did you review nursing and triage notes (agree or disagree)? Why? @ -I reviewed and agree with nursing and triage notes Were old charts reviewed (outside hosp., previous admission, EMS record, old EKG, old radiological studies, urgent care reports/EKG's, halfway records)? Report findings @ -I reviewed the patient's procedure note from 06/18/2024 where she underwent hernia repair Differential Diagnosis (chest pain, altered mental status, abdominal pain women, abdominal pain men, vaginal bleeding, weakness, fever, dyspnea, syncope, headache, dizziness, GI bleed, back pain, seizure, CVA, palpatations, mental health, musculoskeletal)? @ -Differential Abdominal Pain Women: Appendicitis, Cholecystitis, diverticulosis, ischemic bowel, pancreatitis, hepatitis, UTI, gastroenteritis, AAA, incarcerated hernia, bowel obstruction, constipation, inflammatory bowel, hepatitis, peptic ulcer disease, splenic infarction, perforated viscus, vulvitis, ovarian torsion, PID, kidney stone, placenta abruption, this is not meant to be an all-inclusive list EKG interpreted by me (3pts min.). @ -Completed at 1420 sinus rhythm with a ventricular rate of 68, AR interval 165, QTc 453. No acute signs of ischemia. X-rays interpreted by me (1pt min.). @ -None done CT interpreted by me (1pt min.). @ -None done U/S interpreted by me (1pt. min.). @ -None done What testing was considered but not performed or refused? (CT, X-rays, U/S, labs)? Why? @ -Laboratory studies including CBC and CMP were considered but deferred at this time. There is minimal clinical concern for systemic infection as patient is not expressing symptoms of fevers, chills, nausea, vomiting there is very minimal erythema surrounding the patient's JOSÉ ANTONIO tube. Patient is in agreement with deferring labs at this time as well. What meds were considered but not given or refused? Why? @ -None Did you discuss the management of the patient with other professionals (professionals i.e. Dr., PA, [employer], lab, RT, psych nurse, hospital social worker, six sigma black belt engineer, teacher, grant officer, case managers)? Give summary @ -No Was smoking cessation discussed for >3mins.? @ -No Was critical care preformed (if so, how long)? @ -No Were there social determinants of health that impacted care today? How? (Homelessness, low income, unemployed, alcoholism, drug addiction, transportation, low edu. Level, literacy, decrease access to med. care, skilled nursing, rehab)? @ -No Was there de-escalation of care discussed even if they declined (Discuss DNR or withdrawal of care, Hospice)? DNR status @ -No What co-morbidities impacted this encounter? (DM, HTN, Smoking, COPD, CAD, Cancer, CVA, ARF, Chemo, Hep., AIDS, mental health diagnosis, sleep apnea, morbid obesity)? @ -None Was patient admitted / discharged? Hospital course, mention meds given and route, prescriptions, significant lab abnormalities, going to OR and other pertinent info. @ -discharge. 64-year-old female with postsurgical complication. On physical examination patient's JOSÉ ANTONIO tube is appropriately in place and draining as the [id number] sutures are intact. Vitals are stable. Patient has mild abdominal tenderness to palpation as a postsurgical midline incision with ochoa that are healing appropriately with no signs of erythema, purulence. With mild erythema surrounding the JOSÉ ANTONIO tube patient will be treated for potential cellulitis of the overlying soft tissue with clindamycin. Recommend that patient follows up as scheduled on Friday with her surgeon for further evaluation. All questions answered at bedside and strict return prior discussed with the patient she is verbalized understanding. Discussed with Dr. Valera Undiagnosed new problem with uncertain prognosis? @ -No Drug Therapy requiring intensive monitoring for toxicity (Heparin, Nitro, Insulin, Cardizem)? @ -No Were any procedures done? @ -No Diagnosis/symptom? @ -JOSÉ ANTONIO drain tube pain, cellulitis Acute, or Chronic, or Acute on Chronic? @ -Acute Uncomplicated (without systemic symptoms) or Complicated (systemic symptoms)? @ -uncomplicated Side effects of treatment? @ -No Exacerbation, Progression, or Severe Exacerbation? @ -No Poses a threat to life or bodily function? How? (Chest pain, [place], [place], pneumonia, PE, COPD, DKA, ARF, appy, cholecystitis, CVA, Diverticulitis, Homicidal, Rojas icidal, threat to staff... and all critical care pts) @ -No Disposition Clinical Impression: Abdominal pain, Status post hernia repair, Cellulitis Disposition: HOME SELF-CARE Condition: Good Instructions (If sedation given, give patient instructions): Cellulitis (ED) Additional Instructions: Return to the emergency department for any new or worsening symptoms. Recommend complete full course of antibiotics as prescribed and follow-up as scheduled with your general surgeon on Friday for further evaluation. Prescriptions: clindamycin HCL 300 mg PO QID #40 cap Is patient prescribed a controlled substance at d/c from ED?: No Referrals: Louie Baker MD [Primary Care Provider] - 1-2 days Time of Disposition: 15:36
[2024-07-01 15:55] VITALS: BP 130/82; PULSE 78; RESP 18
== END 2024-07-01 15:55 | disposition home or self-care (01) ==
LOC: EC 14:03
CPT/HCPCS: 99283

== ENCOUNTER 2024-09-11 16:59 | Inpatient (IN) | payer MEDICARE ==
--- NOTE | 2024-09-11 18:33 | ED ---
Abdominal Pain HPI - General Source: patient, RN notes reviewed Mode of arrival: ambulatory Limitations: no limitations <Ashanti Vega - Last Filed: 09/11/24 18:30> <Marty Valera - Last Filed: 09/11/24 19:54> - General Chief Complaint: Abdominal Pain Stated Complaint: Abdominal Pain Time Seen by Provider: 09/11/24 17:55 - History of Present Illness Initial Comments: 64-year-old female with a history of blood clots, on eliquis, and abdominal hernias presenting to the emergency department for worsening diffuse abdominal pain for one day. She reports associated nausea. Patient states he has been having intermittent abdominal pain since 07/06 after a hernia repair with Dr. Barnes, however states that over the last day her pain has worsened. States that the pain is most severe in the epigastric region will radiate up into her chest. States that it is a stabbing sensation which she has been feeling chest pain and mildly short of breath as well. She denies hematochezia, melena, hematemesis, coffee-ground emesis, urinary complaints. She has been taking Tylenol at home with minimal relief. Has follow up appointment scheduled with general surgeon in mid September. (Ashanti Vega) - Related Data Home Medications Medication Instructions Recorded Confirmed Aspirin 81 mg PO DAILY 04/12/24 06/18/24 Manjit Back And Body 1 tab PO DIRECTED PRN 06/16/24 06/18/24 Pantoprazole [Protonix] 40 mg PO DAILY 06/16/24 06/18/24 Sucralfate [Carafate] 1 gm PO TID 06/16/24 06/18/24 busPIRone HCL 5 mg PO BID 06/16/24 06/18/24 Previous Rx's Medication Instructions Recorded Apixaban [Eliquis] 5 mg PO BID 30 Days #60 tab 05/11/24 DULoxetine HCL [Cymbalta] 30 mg PO HS 30 Days #30 cap 05/11/24 Ipratropium-Albuterol Nebulize 3 ml INHALATION RT-QID 30 Days 05/11/24 [Duoneb 0.5 mg-3 mg/3 ml Soln] #120 each Nicotine 21Mg/24Hr Patch [Habitrol] 1 patch TRANSDERM DAILY 30 Days 05/11/24 #30 patch Nystatin 100,000 Unit/gm Powd 1 applic TOPICAL TID 10 Days #150 05/11/24 [Mycostatin Powder] ml levETIRAcetam [Keppra] 500 mg PO Q12HR 90 Days #180 tab 05/11/24 Acetaminophen Tab [Tylenol] 650 mg PO Q6H #30 tab 06/18/24 Docusate [Colace] 100 mg PO BID #20 capsule 06/18/24 Ibuprofen [Motrin] 600 mg PO Q6HR PRN #40 tab 06/18/24 oxyCODONE HCL [OxyIR] 5 mg PO Q6H PRN 3 Days #10 tab 06/18/24 clindamycin HCL 300 mg PO QID #40 cap 07/01/24 Allergies Allergy/AdvReac Type Severity Reaction Status Date / Time hydrogen peroxide Allergy rash and Verified 09/11/24 17:18 skin burn Latex, Natural Rubber Allergy Swelling Verified 09/11/24 17:18 metronidazole Allergy Rash/Hives Verified 09/11/24 17:18 fentanyl AdvReac decreased Verified 09/11/24 17:18 bp isosorbide AdvReac Rapid Verified 09/11/24 17:18 Heart Rate Review of Systems ROS Other: All systems not noted in ROS Statement are negative. <Ashanti Vega - Last Filed: 09/11/24 18:30> ROS Other: All systems not noted in ROS Statement are negative. <Marty Valera - Last Filed: 09/11/24 19:54> ROS Statement: Those systems with pertinent positive or pertinent negative responses have been documented in the HPI. Past Medical History Past Medical History: Chest Pain / Angina, COPD, Deep Vein Thrombosis (DVT), Eye Disorder, GERD/Reflux, Hearing Disorder / Deafness, Memory Impairment, Osteoarthritis (OA), Pneumonia, Pulmonary Embolus (PE), Seizure Disorder, Skin Disorder, Syncope Additional Past Medical History / Comment(s): Chronic back and bilateral knee pain, DDD, cervical/back "nerve damage", "low BP", DVT right thigh, bilateral PEs in 2010 and 2014, migraines, osteoporosis, IBS, vertigo at times, R wrist 2 cysts, pt states since cataract surgery her vision has declined. CVA per CT per pt. Last Seizure -04/2024 Pneumonia 04/2024. yeast rash under breast. rt hand edematous. insomnia History of Any Multi-Drug Resistant Organisms: MRSA Date of last positivie culture/infection: >30 yrs ago MDRO Source:: left hand Past Surgical History: Appendectomy, Cholecystectomy, Heart Catheterization, Hernia Repair Additional Past Surgical History / Comment(s): EGD/COLONOSCOPY/POLYPECTOMY- BENIGN, cardiac cath 06/10/16-normal, back/bilateral knee injections. epidural steroid inj -back, bilateral cataract removals/lens implants. intestinal surgery for "vein wrapped around intestine" Past Anesthesia/Blood Transfusion Reactions: No Reported Reaction Additional Past Anesthesia/Blood Transfusion Reaction / Comment(s): Pt has claustrophobia. Past Psychological History: Bipolar, Depression, Schizophrenia Smoking Status: Former smoker Past Alcohol Use History: None Reported Past Drug Use History: Marijuana - Past Family History Mother Family Medical History: Cancer, COPD, Hyperlipidemia, Hypertension Additional Family Medical History / Comment(s): Mother of LUNG CANCER at the age of 74yrs. Father Family Medical History: CVA/TIA, Hypertension Additional Family Medical History / Comment(s): Father had 2 CVAs and from the second one at the age of 52yrs. He was an alcoholic. <Ashanti Vega - Last Filed: 09/11/24 18:30> General Exam Limitations: no limitations <Ashanti Vega - Last Filed: 09/11/24 18:30> General appearance: alert, in no apparent distress Head exam: Present: atraumatic, normocephalic Eye exam: Present: normal appearance, PERRL Neck exam: Present: normal inspection. Absent: tenderness, meningismus Respiratory exam: Present: normal lung sounds bilaterally. Absent: respiratory distress Cardiovascular Exam: Present: regular rate, normal rhythm GI/Abdominal exam: Present: soft, tenderness (Epigastrium and left upper quadrant). Absent: distended Neurological exam: Present: alert, oriented X3, CN II-XII intact. Absent: motor sensory deficit Psychiatric exam: Present: normal affect, normal mood Skin exam: Present: warm <Marty Valera - Last Filed: 09/11/24 19:54> Course Vital Signs 09/11/24 09/11/24 17:14 19:00 Temperature 98.5 F Pulse Rate 109 H 94 Respiratory 22 18 Rate Blood Pressure 135/79 130/75 O2 Sat by Pulse 99 98 Oximetry Medical Decision Making - Lab Data Result diagrams: 09/11/24 18:37 09/11/24 18:37 <Marty Valera N - Last Filed: 09/11/24 19:54> - Medical Decision Making Was pt. sent in by a medical professional or institution ([facility], [employer] DEVELOPER, urgent care, hospital, or intermediate...) When possible be specific @ -No Did you speak to anyone other than the patient for history (EMS, parent, family, police, friend...)? What history was obtained from this source @ -No Did you review nursing and triage notes (agree or disagree)? Why? @ -I reviewed and agree with nursing and triage notes Were old charts reviewed (outside hosp., previous admission, EMS record, old EKG, old radiological studies, urgent care reports/EKG's, intermediate records)? Report findings @ -No old charts were reviewed Differential Abdominal Pain Women: Appendicitis, Cholecystitis, diverticulosis, ischemic bowel, pancreatitis, hepatitis, UTI, gastroenteritis, AAA, incarcerated hernia, bowel obstruction, constipation, inflammatory bowel, hepatitis, peptic ulcer disease, splenic infarction, perforated viscus, vulvitis, ovarian torsion, PID, kidney stone, placenta abruption, this is not meant to be an all-inclusive list EKG interpreted by me (3pts min.). @ -Sinus rhythm rate of 70, TN interval 132, QRS duration 92, QTc [address] segment elevation. X-rays interpreted by me (1pt min.). @ -None done CT interpreted by me (1pt min.). @ -None done U/S interpreted by me (1pt. min.). @ -None done What testing was considered but not performed or refused? (CT, X-rays, U/S, labs)? Why? @ -None What meds were considered but not given or refused? Why? @ -None Did you discuss the management of the patient with other professionals (professionals i.e. [facility], [employer] DEVELOPER, lab, RT, psych nurse, renal social worker, ventilation worker, teacher, staff mine warfare officer, watch caser)? Give summary @[place] covering for [facility] covering for Dr. Baker Was smoking cessation discussed for >3mins.? @ -No Was critical care preformed (if so, how long)? @ -No Were there social determinants of health that impacted care today? How? (Homelessness, low income, unemployed, alcoholism, drug addiction, transportation, low edu. Level, literacy, decrease access to med. care, usp, rehab)? @ -No Was there de-escalation of care discussed even if they declined (Discuss DNR or withdrawal of care, Hospice)? DNR status @ -No What co-morbidities impacted this encounter? (DM, HTN, Smoking, COPD, CAD, Cancer, CVA, ARF, Chemo, Hep., AIDS, mental health diagnosis, sleep apnea, morbid obesity)? @ -[Anterior abdominal hernia repair Was patient admitted / discharged? Hospital course, mention meds given and route, prescriptions, significant lab abnormalities, going to OR and other pertinent info. @ -64-year-old female with persistent and worsening anterior abdominal pain. Patient has normal CBC, CMP showing mild acidosis with CO2 of 16, otherwise unremarkable, normal lactic acid, normal urinalysis. CT of the abdomen pelvis showed postsurgical changes, no bowel obstruction. No fluid collection to suggest abscess. Patient's pain is persistent despite treatment in the emergency department. She will be admitted to internal medicine with general surgery on consult for evaluation. Undiagnosed new problem with uncertain prognosis? @ -[No Drug Therapy requiring intensive monitoring for toxicity (Heparin, Nitro, Insulin, Cardizem)? @ -No Were any procedures done? @ -No Diagnosis/symptom? @ -[Intractable abdominal pain Acute, or Chronic, or Acute on Chronic? @Acute on chronic Uncomplicated (without systemic symptoms) or Complicated (systemic symptoms)? @ -Default Side effects of treatment? @ -No Exacerbation, Progression, or Severe Exacerbation? @ -No Poses a threat to life or bodily function? How? (Chest pain, USA, TN, pneumonia, PE, COPD, DKA, ARF, appy, cholecystitis, CVA, Diverticulitis, Homicidal, Suicidal, threat to staff... and all critical care pts) @ -Low risk at this time (Marty Valera) - Lab Data Lab Results 09/11/24 09/11/24 09/11/24 Range/Units 18:37 18:37 18:37 WBC 7.8 (3.8-10.6) k/uL RBC 4.53 (3.80-5.40) m/uL Hgb 13.1 (11.4-16.0) gm/dL Hct 40.8 (34.0-46.0) % MCV 90.2 (80.0-100.0) fL MCH 29.0 (25.0-35.0) pg MCHC 32.2 (31.0-37.0) g/dL RDW 13.8 (11.5-15.5) % Plt Count 222 (150-450) k/uL MPV 8.5 Neutrophils % 50 % Lymphocytes % 41 % Monocytes % 4 % Eosinophils % 3 % Basophils % 1 % Neutrophils # 3.9 (1.3-7.7) k/uL Lymphocytes # 3.2 (1.0-4.8) k/uL Monocytes # 0.3 (0-1.0) k/uL Eosinophils # 0.2 (0-0.7) k/uL Basophils # 0.1 (0-0.2) k/uL PT 10.0 (10.0-12.5) sec INR 0.9 (<1.2) APTT 23.4 (22.0-30.0) sec Sodium 132 L (137-145) mmol/L Potassium 4.1 (3.5-5.1) mmol/L Chloride 108 H (98-107) mmol/L Carbon Dioxide 16 L (22-30) mmol/L Anion Gap 8 mmol/L BUN 11 (7-17) mg/dL Creatinine 0.86 (0.52-1.04) mg/dL Est GFR (CKD-EPI)AfAm 83 (>60 ml/min/1.73 sqM) Est GFR (CKD-EPI)NonAf 72 (>60 ml/min/1.73 sqM) Glucose 100 H (74-99) mg/dL Plasma Lactic Acid Cheo (0.7-2.0) mmol/L Calcium 9.7 (8.4-10.2) mg/dL Total Bilirubin 0.6 (0.2-1.3) mg/dL AST 24 (14-36) U/L ALT 15 (4-34) U/L Alkaline Phosphatase 92 (38-126) U/L Troponin I (0.000-0.034) ng/mL Total Protein 7.0 (6.3-8.2) g/dL Albumin 4.3 (3.5-5.0) g/dL Amylase 82 (30-110) U/L Lipase 122 (23-300) U/L Urine Color Urine Appearance (Clear) Urine pH (5.0-8.0) Ur Specific Tabiona (1.001-1.035) Urine Protein (Negative) Urine Glucose (UA) (Negative) Urine Ketones (Negative) Urine Blood (Negative) Urine Nitrite (Negative) Urine Bilirubin (Negative) Urine Urobilinogen (<2.0) mg/dL Ur Leukocyte Esterase (Negative) 09/11/24 09/11/24 09/11/24 Range/Units 18:37 18:37 18:42 WBC (3.8-10.6) k/uL RBC (3.80-5.40) m/uL Hgb (11.4-16.0) gm/dL Hct (34.0-46.0) % MCV (80.0-100.0) fL MCH (25.0-35.0) pg MCHC (31.0-37.0) g/dL RDW (11.5-15.5) % Plt Count (150-450) k/uL MPV Neutrophils % % Lymphocytes % % Monocytes % % Eosinophils % % Basophils % % Neutrophils # (1.3-7.7) k/uL Lymphocytes # (1.0-4.8) k/uL Monocytes # (0-1.0) k/uL Eosinophils # (0-0.7) k/uL Basophils # (0-0.2) k/uL PT (10.0-12.5) sec INR (<1.2) APTT (22.0-30.0) sec Sodium (137-145) mmol/L Potassium (3.5-5.1) mmol/L Chloride (98-107) mmol/L Carbon Dioxide (22-30) mmol/L Anion Gap mmol/L BUN (7-17) mg/dL Creatinine (0.52-1.04) mg/dL Est GFR (CKD-EPI)AfAm (>60 ml/min/1.73 sqM) Est GFR (CKD-EPI)NonAf (>60 ml/min/1.73 sqM) Glucose (74-99) mg/dL Plasma Lactic Acid Cheo 1.0 (0.7-2.0) mmol/L Calcium (8.4-10.2) mg/dL Total Bilirubin (0.2-1.3) mg/dL AST (14-36) U/L ALT (4-34) U/L Alkaline Phosphatase (38-126) U/L Troponin I <0.012 (0.000-0.034) ng/mL Total Protein (6.3-8.2) g/dL Albumin (3.5-5.0) g/dL Amylase (30-110) U/L Lipase (23-300) U/L Urine Color Light Yellow Urine Appearance Clear (Clear) Urine pH 5.5 (5.0-8.0) Ur Specific Tabiona 1.008 (1.001-1.035) Urine Protein Negative (Negative) Urine Glucose (UA) Negative (Negative) Urine Ketones Negative (Negative) Urine Blood Negative (Negative) Urine Nitrite Negative (Negative) Urine Bilirubin Negative (Negative) Urine Urobilinogen <2.0 (<2.0) mg/dL Ur Leukocyte Esterase Negative (Negative) Disposition <Ashanti Vega - Last Filed: 09/11/24 18:30> Is patient prescribed a controlled substance at d/c from ED?: No Time of Disposition: 19:54 <Marty Valera - Last Filed: 09/11/24 19:54> Clinical Impression: Post-operative pain, Intractable nausea and vomiting, Abdominal pain Disposition: ADMITTED IP TO THIS HOSP Condition: Stable Referrals: Louie Baker MD [Primary Care Provider] - 1-2 days
[2024-09-11 18:48] LABS: Appearance,Urine Clear (Clear); Bilirubin,Urine Negative (Negative); Blood,Urine Negative (Negative); Color,Urine Light Yellow; Glucose,Urine (UA) Negative (Negative); Ketones,Urine Negative (Negative); Leukocyte Esterase,Urine Negative (Negative); Nitrite,Urine Negative (Negative); PH, Urine 5.5 (5.0-8.0); Protein,Urine Negative (Negative); Specific Gravity,Urine 1.008 (1.001-1.035); Urobilinogen,Urine <2.0 mg/dL (<2.0)
[2024-09-11 18:51] LABS: Basophils # (A) 0.1 k/uL (0-0.2); Basophils % (A) 1 %; Eosinophils # (A) 0.2 k/uL (0-0.7); Eosinophils % (A) 3 %; HCT 40.8 % (34.0-46.0); HGB 13.1 gm/dL (11.4-16.0); Lymphocytes # (A) 3.2 k/uL (1.0-4.8); Lymphocytes % (A) 41 %; MCHC 32.2 g/dL (31.0-37.0); MCV 90.2 fL (80.0-100.0); Mean Platelet Volume 8.5; Monocytes # (A) 0.3 k/uL (0-1.0); Monocytes % (A) 4 %; Neutrophils # (A) 3.9 k/uL (1.3-7.7); Neutrophils % (A) 50 %; Platelet Count 222 k/uL (150-450); RBC 4.53 m/uL (3.80-5.40); RDW 13.8 % (11.5-15.5); WBC 7.8 k/uL (3.8-10.6)
[2024-09-11] MEDS: SODIUM CHLORIDE 0.9% 500 ML 500 ML IV ONE (18:56)
[2024-09-11] MEDS: ONDANSETRON 4 MG/2 ML VIAL IVP STA (18:57)
[2024-09-11] MEDS: HYDROmorphone 0.5 MG/0.5 ML SYRINGE IVP STA ×2 (18:58→20:30)
[2024-09-11 19:03] LABS: INR 0.9 (<1.2); Partial Thromboplastin Time 23.4 sec (22.0-30.0)
[2024-09-11 19:10] LABS: ALT 15 U/L (4-34); AST 24 U/L (14-36); African American GFR (CKD) 83 (>60 ml/min/1.73 sqM); Albumin 4.3 g/dL (3.5-5.0); Alkaline Phosphatase 92 U/L (38-126); Amylase 82 U/L (30-110); Anion Gap 8 mmol/L; Blood Urea Nitrogen 11 mg/dL (7-17); Calcium 9.7 mg/dL (8.4-10.2); Carbon Dioxide 16 mmol/L (22-30); Chloride 108 mmol/L (98-107); Glucose 100 mg/dL (74-99); Lipase 122 U/L (23-300); Non-African American GFR(CKD) 72 (>60 ml/min/1.73 sqM); Potassium 4.1 mmol/L (3.5-5.1); Sodium 132 mmol/L (137-145); Total Bilirubin 0.6 mg/dL (0.2-1.3)
--- NOTE | 2024-09-11 19:36 | CT ---
EXAMINATION TYPE: CT abdomen pelvis w con DATE OF EXAM: 09/11/2024 7:20 PM COMPARISON: 11/28/2023 CLINICAL INDICATION: Female, 64 years old with history of diffuse ab pain, Pt c/o sharp abd pain with nausea today. History of hernia repair done in June., TECHNIQUE: Contiguous axial scanning of the abdomen and pelvis following administration of 100 ml Iso mikala 300 IV contrast. Delayed images through the kidneys and coronal/sagittal reconstructions perform ed. CT DLP: 751.8 mGycm, Automated exposure control for dose reduction was used. FINDINGS: The heart is normal size with trace pericardial fluid. Some strandy atelectasis in the lowe r lungs. No pleural effusion. Post surgical changes along the supraumbilical midline relating to prior abdominal wall hernia repair . Some strandy density here and some mild dependent edema may reflect some third spacing. There is a tiny 9 mm nodule just deep to the hernia repair within the omentum, axial image 30 and sag ittal image 7. No focal liver lesion. Similar mildly dilated bile duct at 1.1 cm. Mild intrahepatic biliary ductal d ilatation seems to be slightly increased but patient is status post cholecystectomy. Portal venous sy stem is patent. Adrenal glands, left kidney, spleen, and pancreas within normal limits. Tiny 7 mm cortical cyst right kidney. There is some postsurgical change along the anterior gastric antrum which seems to represent a gastro jejunostomy. A few prominent fluid-filled small bowel loops within the mid to lower abdomen and pelvi s measuring up to 2.8 cm in caliber. No transition point to suggest bowel obstruction. Liquid stool w ithin the right side of the colon. Mild stool elsewhere in the colon. Moderate atherosclerotic calcifications infrarenal abdominal aorta and common iliac arteries. Bladder is collapsed. Uterus anteverted. Ovaries obscured by clustered bowel loops. No abnormal fluid collection in the pelvis or pelvic lymphadenopathy. Bones: No osseous destructive process. Facet arthropathy lower lumbar spine with trace grade 1 faiza listhesis L4-L5. Moderate degenerative disc disease L5-S1. IMPRESSION: 1. REDEMONSTRATED SURGICAL CHANGE ALONG THE ANTERIOR GASTRIC ANTRUM SEEMS TO REFLECT PREVIOUS GASTROJ EJUNOSTOMY. 2. POSTSURGICAL CHANGE ALONG THE SUPRAUMBILICAL ANTERIOR MIDLINE RELATING TO INTERVAL ABDOMINAL WALL HERNIA REPAIR. SOME STRANDY DENSITY HERE MAY REFLECT THIRD SPACING. CORRELATE FOR ANY LOCAL SYMPTOMS TO EXCLUDE A CELLULITIS. 3. A TINY 9 MM NODULE WITHIN THE OMENTUM JUST DEEP TO THE HERNIA REPAIR PROBABLY POSTSURGICAL CHANGE. RECOMMEND 3-6 MONTH FOLLOW-UP CT TO REASSESS. 4. PROMINENT FLUID-FILLED SMALL BOWEL LOOPS MID TO LOWER ABDOMEN WELL LIQUID STOOL IN THE RIGHT SIDE OF THE COLON. CORRELATE FOR ENTERITIS. [facility], , 09/11/2024 7:34 PM
[2024-09-11] MEDS ORDERED: ACETAMINOPHEN TAB 325 MG TAB PO PRN (19:51)
[2024-09-11] MEDS ORDERED: NALOXONE 0.4 MG/ML 1 ML VIAL IV PRN (19:51)
[2024-09-11] MEDS: KETOROLAC 15 MG/ML 1 ML VIAL IVP STA (20:33)
[2024-09-11] MEDS: SODIUM CHLORIDE 0.9% 1,000 ML IV SCH (20:36)
[2024-09-12] MEDS: HYDROmorphone 1 MG/ML 1 ML SYRINGE IVP PRN
[2024-09-12] MEDS: ONDANSETRON 4 MG/2 ML VIAL IVP PRN (06:45)
[2024-09-12] MEDS: APIXABAN 5 MG TAB PO SCH (14:07)
[2024-09-12] MEDS: levETIRAcetam 500 MG TAB PO SCH (14:07)
[2024-09-12] MEDS: busPIRone HCl 5 MG TAB PO SCH (14:07)
--- NOTE | 2024-09-12 15:03 | P.GSCN ---
History of Present Illness Consult date: 09/12/24 History of present illness: CHIEF COMPLAINT: Intractable abdominal pain HISTORY OF PRESENT ILLNESS: The patient is a 64-year-old female with a complicated medical surgical history of intractable abdominal pain starting over a year ago in 2022. Patient know she had clinical SMA syndrome for which he underwent exploratory laparotomy with gastrojejunostomy by Dr. Barnes October 2022. Patient then developed an incisional hernia status post repair June 2024. Patient reports her epigastric and abdominal pain is similar to prior to all of her surgeries with SMA syndrome. She reports chronic nausea. General surgery is consulted due to intractable abdominal pain. Patient reports of burning sensation of the upper abdomen and numbing sensation along her incision from her incisional hernia. She reports swelling of the left upper abdomen. PAST MEDICAL HISTORY: See list and reviewed PAST SURGICAL HISTORY: See list and reviewed MEDICATIONS: See list and reviewed ALLERGIES: See list and reviewed SOCIAL HISTORY: See list and reviewed. Takes marijuana. FAMILY HISTORY: See list and reviewed REVIEW OF ORGAN SYSTEMS: CONSTITUTIONAL: No fevers or chills. No recent weight loss. EYES: Has trouble with vision and past cataract surgery. HEENT: Reports difficulty with hearing. No nosebleeds. No difficulty swallowing. RESPIRATORY: Has chronic obstructive pulmonary disease due to asthma. Past history of pulmonary embolism. CARDIOVASCULAR: Prior history of pulmonary embolism. Abnormal EKG. GASTROINTESTINAL: Has gastroesophageal reflux disease. Has pre-existing chronic tractable nausea and vomiting with SMA syndrome. Reports irritable bowel syndrome. GENITOURINARY: Denies any blood in urine or increased urinary frequency. NEUROLOGICAL: Reports difficulty with memory. Has seizure disorder. Has migraines. MUSCULOSKELETAL: Denies any back pain, stiffness or joint arthritis. SKIN: No current skin cancer. No rash. PSYCHIATRIC: Has depressive disorder. Has bipolar disorder, schizophrenia, mood disorder. ENDOCRINE: Denies current thyroid disorders. Denies any blood sugar glucose intolerance. HEME/LYMPHATIC: Denies any lumps and bumps around the neck. History of deep venous thrombosis on chronic anticoagulation. ALLERGY/IMMUNOLOGY: No immunoglobulin therapy. No immune deficiencies. BREAST: Denies current breast lumps, pain or nipple discharge. PHYSICAL EXAM: VITALS: Reviewed CONSTITUTIONAL: Well developed and in no acute distress. EYES: Conjuctivae without sclera icterus. Extraocular movements grossly intact. HEAD, EARS, NOSE, THROAT: Moist buccal mucosa. Head is atraumatic, normocephalic. Hears conversational speech. No nasal drainage. Edentulous. NECK: Supple. No JV distention. No thyroidomegaly. RESPIRATORY: Non-labored respirations and equal bilateral excursions. No gross wheezes. CARDIOVASCULAR: Palpable 2+ radial pulses. ABDOMEN: Well-healed midline incision. Soft tissue fullness of the left upper quadrant. No palpable incisional hernia. No diffuse peritonitis. Hyper anesthesia of the upper abdominal wall noted. LYMPH: No neck lymphadenopathy. MUSCULOSKELETAL: No clubbing cyanosis or edema SKIN: Warm and well perfused with good skin turgor. NEUROLOGIC: Cranial nerves II through XII grossly intact. No focal or lateralizing signs. PSYCH: Appropriate affect. Alert and oriented to person, place and time. Displays appropriate insight. CLINCAL LABS: Reviewed. Sodium low 132, hyponatremia. Urinalysis negative. IMAGING: Independently reviewed. CT of the abdomen pelvis independently reviewed demonstrates no recurrent hernia of the left upper abdomen. No bowel obstruction noted. This is my independent interpretation. No free air. RADIOLOGY: Report reviewed CT abdomen demonstrates surgical changes of the abdominal wall. Possible enteritis. EKG: Borderline EKG with left atrial enlargement. RECORDS: previous old records reviewed from 2022 including pathology report demonstrating omentectomy ASSESSMENT: 1. Chronic intractable abdominal pain 2. History of SMA syndrome status post loop gastrojejunostomy 3. Bipolar disorder 4. History of abdominal wall hernia repair 5. Abnormal CT for possible enteritis PLAN: 1. Expectant management for possible enteritis per CT scan including IV fluid hydration. 2. Abdominal binder for recent abdominal wall hernia repair. Patient reassured abdominal wall hernia surgery and recovery may take months to at least a year for recovery. 3. Patient is seeking second opinion regarding intractable abdominal pain for which she may review her options. 4. No acute surgical invention at this time ADVANCE DIRECTIVE: CODE STATUS in chart Thank you for this kind consultation. Past Medical History Past Medical History: Chest Pain / Angina, COPD, Deep Vein Thrombosis (DVT), Eye Disorder, GERD/Reflux, Hearing Disorder / Deafness, Memory Impairment, Osteoarthritis (OA), Pneumonia, Pulmonary Embolus (PE), Seizure Disorder, Skin Disorder, Syncope Additional Past Medical History / Comment(s): Chronic back and bilateral knee pain, DDD, cervical/back "nerve damage", "low BP", DVT right thigh, bilateral PEs in 2010 and 2014, migraines, osteoporosis, IBS, vertigo at times, R wrist 2 cysts, pt states since cataract surgery her vision has declined. CVA per CT per pt. Last Seizure -04/2024 Pneumonia 04/2024. yeast rash under breast. rt hand edematous. insomnia History of Any Multi-Drug Resistant Organisms: MRSA Year Discovered:: >30 yrs ago MDRO Source:: left hand Past Surgical History: Appendectomy, Cholecystectomy, Heart Catheterization, Hernia Repair Additional Past Surgical History / Comment(s): EGD/COLONOSCOPY/POLYPECTOMY- BENIGN, cardiac cath 06/10/16-normal, back/bilateral knee injections. epidural steroid inj -back, bilateral cataract removals/lens implants. intestinal surgery for "vein wrapped around intestine" Past Anesthesia/Blood Transfusion Reactions: No Reported Reaction Additional Past Anesthesia/Blood Transfusion Reaction / Comm: Pt has claustrophobia. Past Psychological History: Bipolar, Depression, Schizophrenia Additional Psychological History / Comment(s): Mood disorder. She has a cane she uses prn. She no longer drives d/t declining vision. She either walks or takes the bus to [employer]. Smoking Status: Former smoker Past Alcohol Use History: None Reported Additional Past Alcohol Use History / Comment(s): STARTED SMOKING AT AGE 14(1974) currently smokes 1 ppd. Quit April 22, 2024 has occasional cigarette Past Drug Use History: Marijuana Additional Drug Use History / Comment(s): Pt states she smokes marijuana daily, 1-2 joints, to stimulate her appetite or to help her sleep. pt aware not to use 24 hrs before procedure. - Past Family History Mother Family Medical History: Cancer, COPD, Hyperlipidemia, Hypertension Additional Family Medical History / Comment(s): Mother of LUNG CANCER at the age of 74yrs. Father Family Medical History: CVA/TIA, Hypertension Additional Family Medical History / Comment(s): Father had 2 CVAs and from the second one at the age of 52yrs. He was an alcoholic. Medications and Allergies Home Medications Medication Instructions Recorded Confirmed Type Aspirin 81 mg PO DAILY 04/12/24 09/11/24 History Apixaban [Eliquis] 5 mg PO BID 30 Days #60 tab 05/11/24 09/11/24 Rx Ipratropium-Albuterol Nebulize 3 ml INHALATION RT-QID 30 Days 05/11/24 09/11/24 Rx [Duoneb 0.5 mg-3 mg/3 ml Soln] #120 each levETIRAcetam [Keppra] 500 mg PO Q12HR 90 Days #180 tab 05/11/24 09/11/24 Rx busPIRone HCL 5 mg PO BID 06/16/24 09/11/24 History DULoxetine HCL [Cymbalta] 30 mg PO DAILY 09/11/24 09/11/24 History Omeprazole 40 mg PO DAILY 09/11/24 09/11/24 History Allergies Allergy/AdvReac Type Severity Reaction Status Date / Time hydrogen peroxide Allergy rash and Verified 09/12/24 12:18 skin burn Latex, Natural Rubber Allergy Swelling Verified 09/12/24 12:18 metronidazole Allergy Rash/Hives Verified 09/12/24 12:18 fentanyl AdvReac decreased Verified 09/12/24 12:18 bp isosorbide AdvReac Rapid Verified 09/12/24 12:18 Heart Rate Surgical - Exam Vital Signs Temp Pulse Resp BP Pulse Ox 98.5 F 109 H 22 135/79 99 09/11/24 17:14 09/11/24 17:14 09/11/24 17:14 09/11/24 17:14 09/11/24 17:14 Results - Labs 09/11/24 18:37 09/11/24 18:37 Abnormal Lab Results - Last 24 Hours (Table) 09/11/24 Range/Units 18:37 Sodium 132 L (137-145) mmol/L Chloride 108 H (98-107) mmol/L Carbon Dioxide 16 L (22-30) mmol/L Glucose 100 H (74-99) mg/dL Diabetes panel 09/11/24 Range/Units 18:37 Sodium 132 L (137-145) mmol/L Potassium 4.1 (3.5-5.1) mmol/L Chloride 108 H (98-107) mmol/L Carbon Dioxide 16 L (22-30) mmol/L BUN 11 (7-17) mg/dL Creatinine 0.86 (0.52-1.04) mg/dL Glucose 100 H (74-99) mg/dL Calcium 9.7 (8.4-10.2) mg/dL AST 24 (14-36) U/L ALT 15 (4-34) U/L Alkaline Phosphatase 92 (38-126) U/L Total Protein 7.0 (6.3-8.2) g/dL Albumin 4.3 (3.5-5.0) g/dL Calcium panel 09/11/24 Range/Units 18:37 Calcium 9.7 (8.4-10.2) mg/dL Albumin 4.3 (3.5-5.0) g/dL Pituitary panel 09/11/24 Range/Units 18:37 Sodium 132 L (137-145) mmol/L Potassium 4.1 (3.5-5.1) mmol/L Chloride 108 H (98-107) mmol/L Carbon Dioxide 16 L (22-30) mmol/L BUN 11 (7-17) mg/dL Creatinine 0.86 (0.52-1.04) mg/dL Glucose 100 H (74-99) mg/dL Calcium 9.7 (8.4-10.2) mg/dL Adrenal panel 09/11/24 Range/Units 18:37 Sodium 132 L (137-145) mmol/L Potassium 4.1 (3.5-5.1) mmol/L Chloride 108 H (98-107) mmol/L Carbon Dioxide 16 L (22-30) mmol/L BUN 11 (7-17) mg/dL Creatinine 0.86 (0.52-1.04) mg/dL Glucose 100 H (74-99) mg/dL Calcium 9.7 (8.4-10.2) mg/dL Total Bilirubin 0.6 (0.2-1.3) mg/dL AST 24 (14-36) U/L ALT 15 (4-34) U/L Alkaline Phosphatase 92 (38-126) U/L Total Protein 7.0 (6.3-8.2) g/dL Albumin 4.3 (3.5-5.0) g/dL
[2024-09-12] MEDS: IPRATROPIUM-ALBUTEROL 3 ML NEB INHALATION SCH (15:38)
[2024-09-12] MEDS: KETOROLAC 15 MG/ML 1 ML VIAL IVP SCH (15:49)
[2024-09-12] MEDS: GABAPENTIN 300 MG CAP PO SCH (15:50)
[2024-09-12] MEDS: ACETAMINOPHEN IV (For NPO) 1,000 MG in EMPTY BAG 1 BAG IVPB SCH (15:50)
[2024-09-12] MEDS: HYDROmorphone 0.5 MG/0.5 ML SYRINGE IVP PRN (18:06)
[2024-09-12] MEDS: DULoxetine HCL 30 MG CAPSULE.DR PO SCH (22:45)
--- NOTE | 2024-09-13 08:34 | HP ---
HISTORY AND PHYSICAL HISTORY OF PRESENT ILLNESS: She came to the hospital with acute abdominal pain, nausea, vomiting. She is on gabapentin 300 t.i.d., Toradol, Tylenol, low-fiber diet, seen by Surgery for progressive nausea and vomiting. HOME MEDICATIONS: Reviewed. ALLERGIES: Reviewed. PAST MEDICAL HISTORY: Chest pain, angina, COPD, DVT, GERD, hearing disorder, deafness, memory impairment, osteoarthritis, pulmonary embolism, seizure disorder, syncope, and nerve damage. PAST SURGICAL HISTORY: Appendectomy, cholecystectomy, heart catheterization, hernia repair. PHYSICAL EXAMINATION: VITAL SIGNS: Temp 98.5, pulse 90s to 105, respiratory rate 18 to 22, blood pressure 135/79, O2 of 98% to 99%. ABDOMEN: Diffuse tenderness. GI: Soft. HEMATOLOGY: Negative Homans. PSYCH: Fair mood and affect. NEUROLOGIC: Alert and oriented x3. OPHTHALMOLOGICAL: Pupils equal and reactive. NEURO: Cranial nerves intact. LABORATORY DATA: Reviewed. ASSESSMENT: Acute on chronic abdominal pain, history of chronic obstructive pulmonary disease, postoperative pain with intractable nausea and vomiting. Await surgical clearance. Advance diet. Prognosis guarded. MMODL / IJN: [id number] /
[2024-09-13 08:36] LABS: Basophils # (A) 0.05 X 10*3/uL (0.00-0.10); Eosinophils # (A) 0.12 X 10*3/uL (0.04-0.35); Eosinophils % (A) 2.3 %; HCT 37.7 % (37.2-46.3); HGB 12.1 g/dL (12.0-15.0); Lymphocytes # (A) 1.63 X 10*3/uL (0.90-5.00); Lymphocytes % (A) 31.3 %; MCH 29.4 pg (27.0-32.0); MCHC 32.1 g/dL (32.0-37.0); MCV 91.7 FL (80.0-97.0); Mean Platelet Volume 11.1 FL (9.5-12.2); Monocytes # (A) 0.33 X 10*3/uL (0.20-1.00); Monocytes % (A) 6.3 %; NRBC Per 100 WBC 0 X 10*3/uL (0.00-0.01); Neutrophils # (A) 3.07 X 10*3/uL (1.80-7.70); Neutrophils % (A) 58.9 %; Platelet Count 198 X 10*3/uL (140-440); RBC 4.11 X 10*6/uL (4.10-5.20); RDW 14.3 % (11.5-14.5); WBC 5.21 X 10*3/uL (4.50-10.00)
[2024-09-13 08:51] LABS: ALT 14 U/L (8-44); AST 20 U/L (13-35); Albumin 3.5 g/dL (3.8-4.9); Albumin/Globulin Ratio 2.06 Ratio (1.60-3.17); Alkaline Phosphatase 85 U/L (41-126); BUN/Creat Ratio 7.75 Ratio (12.00-20.00); Blood Urea Nitrogen 6.2 mg/dL (9.0-27.0); Carbon Dioxide 21.5 mmol/L (21.6-31.8); Chloride 108 mmol/L (96-109); Globulin 1.7 g/dL (1.6-3.3); Glucose 72 mg/dL (70-110); Potassium 4.7 mmol/L (3.5-5.5); Sodium 140 mmol/L (135-145); Total Bilirubin 0.3 mg/dL (0.3-1.2); Total Protein 5.2 g/dL (6.2-8.2)
[2024-09-13] MEDS ORDERED: DULoxetine HCL 30 MG CAPSULE.DR PO SCH (09:00)
[2024-09-13] MEDS: ASPIRIN 81 MG PO SCH (09:41)
[2024-09-13] MEDS: PANTOPRAZOLE 40 MG TABLET PO SCH (09:41)
--- NOTE | 2024-09-13 12:21 | P.PN ---
Subjective Progress Note Date: 09/13/24 SURGICAL PROGRESS NOTE CHIEF COMPLAINT: Abdominal pain HISTORY OF PRESENT ILLNESS: Patient continues to report having episodes of vomiting. She reports pain in the epigastric and left upper quadrant area. She reports that her left upper quadrant feels swollen. She reports not feeling any better since being admitted to the hospital. Patient also reports that yesterday while drinking water she felt that the water just stuck in her throat and then encrypt to be due to more nausea. She reports having bowel movements. She reports feeling like she had before she had her gastrojejunostomy surgery in 2022. Afebrile. WBC 5.21 Hgb 12.1 PHYSICAL EXAM: VITAL SIGNS: Reviewed. GENERAL: Well-developed in no acute distress. ABDOMEN: Soft. Nondistended. Epigastric tenderness and left upper quadrant tenderness with palpation NEUROLOGIC: Alert and oriented. Cranial nerves II through XII grossly intact. ASSESSMENT: 1. Chronic intractable abdominal pain 2. History of SMA syndrome status post loop gastrojejunostomy 3. Bipolar disorder 4. History of abdominal wall hernia repair 5. Abnormal CT for possible enteritis PLAN: -Continued abdominal pain with vomiting and now dysphagia. Upper GI ordered for today and EGD for tomorrow -Placed Eliquis on hold -Diet downgraded to full liquid diet today. Patient educated that if it is increasing her pain or causing nausea and vomiting to stop eating -N.p.o. after midnight Physician Recreation Attendant note has been reviewed by physician. Signing provider agrees with the documented findings, assessment, and plan of care. Objective - Vital Signs Vital signs: Vital Signs Temp 98.6 F 09/13/24 07:00 Pulse 82 09/13/24 07:00 Resp 17 09/13/24 07:00 BP 110/66 09/13/24 07:00 Pulse Ox 96 09/13/24 07:00 FiO2 Intake & Output 09/12/24 09/13/24 09/13/24 18:59 06:59 18:59 Intake Total 354 118 Output Total 3 Balance 351 118 Intake: Oral 354 118 Output: Emesis 3 Other: Voiding Method Toilet # Voids 1 3 - Labs CBC & Chem 7: 09/13/24 04:43 09/13/24 04:43 Labs: Abnormal Lab Results - Last 24 Hours (Table) 09/13/24 Range/Units 04:43 Carbon Dioxide 21.5 L (21.6-31.8) mmol/L BUN 6.2 L (9.0-27.0) mg/dL BUN/Creatinine Ratio 7.75 L (12.00-20.00) Ratio Total Protein 5.2 L (6.2-8.2) g/dL Albumin 3.5 L (3.8-4.9) g/dL
--- NOTE | 2024-09-13 15:51 | FL ---
EXAMINATION TYPE: FL UGI w esophagus DATE OF EXAM: 09/13/2024 2:02 PM COMPARISON: 09/11/2024 CLINICAL INDICATION:Female, 64 years old with history of Difficulty swallowing, epigastric pain; TECHNIQUE: The procedure was explained and patient history elicited. All patient questions were ans wered prior to start of procedure. A surgical garment fitter radiograph of the abdomen was also reviewed. Multiple flu oroscopic spot images of the esophagus, stomach and duodenum were obtained following ingestion of liq uid barium and EZ-gas crystals. Fluoroscopic time:1min49 min Fluoroscopic images:0 Radiographs taken: 120 DAP: not reported [id number] FINDINGS: Upper GI examination: The surgical garment fitter abdominal radiograph demonstrates a normal bowel gas pattern without dilated loops of small or large bowel. There is no evidence for organomegaly or pneumoperitoneum. No abnormal calcificat ions. The visualized osseous structures are intact. The esophagus appears unremarkable without evidence of focal stricture, ulceration or abnormal outpou tommy. No hiatal hernia was visualized. No evidence of gastroesophageal reflux was seen. A few sca ttered tertiary contractions. The stomach and duodenum demonstrate a normal course and contour. Ther e is no evidence of focal gastric or duodenal ulceration, stricture, or abnormal outpouching. Contra st demonstrated free flow into the jejunum. IMPRESSION: 1. Postsurgical changes to the bowel/stomach free flow contrast into the duodenum the stomach into t he jejunum.. 2. Mild esophageal dysmotility. [facility], , 09/13/2024 3:48 PM
--- NOTE | 2024-09-14 02:02 | CT ---
EXAM: CT Chest Without Intravenous Contrast CLINICAL HISTORY: ITS.REASON CT Reason: cap TECHNIQUE: Axial computed tomography images of the chest without intravenous contrast. CTDI is 6.3 mGy and DLP is 284.3 mGy-cm. This CT exam was performed using one or more of the following dose reduction techniques: automated exposure control, adjustment of the mA and/or kV according to patient size, and/or use of iterative reconstruction technique. COMPARISON: No relevant prior studies available. FINDINGS: Lungs: Atelectasis at the lung bases. No mass. Pleural space: Unremarkable. No pneumothorax. No significant effusion. Heart: Unremarkable. No cardiomegaly. No significant pericardial effusion. No significant coronary artery calcifications. Bones/joints: Degenerative changes of the spine. No acute fracture. No dislocation. Soft tissues: Unremarkable. Vasculature: Atherosclerotic changes of the aorta. No thoracic aortic aneurysm. Lymph nodes: Unremarkable. No enlarged lymph nodes. Stomach and bowel: Postsurgical changes of the stomach. Correlate with surgical history. IMPRESSION: No pneumonia.
--- NOTE | 2024-09-14 05:04 | PN ---
PROGRESS NOTE SUBJECTIVE: Intractable abdominal pain, nausea, vomiting, had a barium swallow that showed Maguire's esophagus, but no obstruction. She is going to have an EGD done tomorrow. OBJECTIVE: CARDIOVASCULAR: S1, S2. LUNGS: Clear. GI: Soft. CT scan reviewed with the patient. Intractable abdominal pain, nausea, vomiting, Maguire's esophagus. Continue current treatment with PT, OT. EGD tomorrow. CT of the chest to rule out pneumonia. Prognosis guarded. Ambulate as tolerated. Refer scope tomorrow. MMODL / IJN: [id number] /
[2024-09-14 05:33] LABS: Basophils % (A) 1 %; Eosinophils # (A) 0.2 k/uL (0-0.7); Eosinophils % (A) 4 %; HGB 10.8 gm/dL (11.4-16.0); Lymphocytes # (A) 1.7 k/uL (1.0-4.8); Lymphocytes % (A) 39 %; MCH 30.3 pg (25.0-35.0); MCHC 32.7 g/dL (31.0-37.0); MCV 92.6 fL (80.0-100.0); Monocytes # (A) 0.2 k/uL (0-1.0); Monocytes % (A) 5 %; Neutrophils # (A) 2.1 k/uL (1.3-7.7); Neutrophils % (A) 49 %; Platelet Count 170 k/uL (150-450); RBC 3.56 m/uL (3.80-5.40); RDW 13.8 % (11.5-15.5); WBC 4.2 k/uL (3.8-10.6)
[2024-09-14 05:49] LABS: African American GFR (CKD) >90 (>60 ml/min/1.73 sqM); Anion Gap 1 mmol/L; Blood Urea Nitrogen 7 mg/dL (7-17); Calcium 8.4 mg/dL (8.4-10.2); Carbon Dioxide 23 mmol/L (22-30); Chloride 110 mmol/L (98-107); Glucose 76 mg/dL (74-99); Non-African American GFR(CKD) >90 (>60 ml/min/1.73 sqM); Potassium 3.7 mmol/L (3.5-5.1); Sodium 134 mmol/L (137-145)
[2024-09-14] MEDS: LACTATED RINGERS 1,000 ML IV SCH (10:01)
--- NOTE | 2024-09-14 13:10 | P.PN ---
Subjective Progress Note Date: 09/14/24 SURGICAL PROGRESS NOTE CHIEF COMPLAINT: Abdominal pain HISTORY OF PRESENT ILLNESS: Patient reports her last episode of vomiting was yesterday morning. She continues to have epigastric pain. She is scheduled for EGD today. Upper GI reports postsurgical changes in the bowel/stomach Free Flow contrast into the duodenum stomach and jejunum. Mild esophageal dysmotility. PHYSICAL EXAM: VITAL SIGNS: Reviewed. GENERAL: Well-developed in no acute distress. ABDOMEN: Soft. Nondistended. Epigastric tenderness and left upper quadrant tenderness with palpation NEUROLOGIC: Alert and oriented. Cranial nerves II through XII grossly intact. ASSESSMENT: 1. Chronic intractable abdominal pain 2. History of SMA syndrome status post loop gastrojejunostomy 3. Bipolar disorder 4. History of abdominal wall hernia repair 5. Abnormal CT for possible enteritis 6. Mild esophageal dysmotility PLAN: -Patient scheduled for EGD today with Dr. Barnes -Continue to hold [employer] Physician Paper Machine Backtender note has been reviewed by physician. Signing provider agrees with the documented findings, assessment, and plan of care. Objective - Vital Signs Vital signs: Vital Signs Temp 98.2 F 09/14/24 07:00 Pulse 80 09/14/24 07:00 Resp 17 09/14/24 07:00 BP 119/67 09/14/24 07:00 Pulse Ox 94 L 09/14/24 07:00 FiO2 Intake & Output 09/13/24 09/14/24 09/14/24 18:59 06:59 18:59 Intake Total 354 Balance 354 Intake: Oral 354 Other: Voiding Method Toilet # Voids 1 2 - Labs CBC & Chem 7: 09/14/24 05:06 09/14/24 05:06 Labs: Abnormal Lab Results - Last 24 Hours (Table) 09/14/24 09/14/24 Range/Units 05:06 05:06 RBC 3.56 L (3.80-5.40) m/uL Hgb 10.8 L (11.4-16.0) gm/dL Hct 33.0 L (34.0-46.0) % Sodium 134 L (137-145) mmol/L Chloride 110 H (98-107) mmol/L
[2024-09-14] MEDS ORDERED: PROPOFOL 10 MG/ML 20 ML VIAL IV ONE (16:11)
[2024-09-14] MEDS: IV FLUID CONTINUATION 100 ML IV ONE (16:14)
[2024-09-14] MEDS: SODIUM CHLORIDE 0.9% 500 ML 500 ML IV ONE (16:33)
--- NOTE | 2024-09-14 16:43 | P.OP ---
Date of Procedure: 09/14/24 Preoperative Diagnosis: Dysphagia Postoperative Diagnosis: Dysphagia No evidence of gastric outlet obstruction Procedure(s) Performed: EGD Anesthesia: MAC Surgeon: Kade Barnes Pathology: none sent Condition: stable Disposition: PACU Description of Procedure: Patient was placed on the endoscopy table in the lateral position. Here she received IV sedation. The gas was placed oropharynx passed in the esophagus and the stomach. S the patient had previous gastrojejunostomy. The gastrojejunostomy. To be patent. There is no evidence of obstruction. r. This point scope withdrawn. The rate of the stomach appeared normal. The GE junction was at 40 cm. The distal esophagus appeared normal. The proximal esophagus appeared normal. Scope withdrawn for the patient.
--- NOTE | 2024-09-15 13:16 | P.PN ---
Subjective Progress Note Date: 09/15/24 SURGICAL PROGRESS NOTE CHIEF COMPLAINT: Abdominal pain HISTORY OF PRESENT ILLNESS: Patient reports she is feeling better today. She has had no further vomiting. She was able to eat a little breakfast this morning. EGD from yesterday reported no evidence of gastric outlet obstruction. Upper GI reports postsurgical changes in the bowel/stomach Free Flow contrast into the duodenum stomach and jejunum. Mild esophageal dysmotility. PHYSICAL EXAM: VITAL SIGNS: Reviewed. GENERAL: Well-developed in no acute distress. ABDOMEN: Soft. Nondistended. NEUROLOGIC: Alert and oriented. Cranial nerves II through XII grossly intact. ASSESSMENT: 1. Chronic intractable abdominal pain 2. History of SMA syndrome status post loop gastrojejunostomy 3. Bipolar disorder 4. History of abdominal wall hernia repair 5. Abnormal CT for possible enteritis 6. Mild esophageal dysmotility PLAN: -Continue to monitor -Continue regular diet -Encourage patient to ambulate Physician Housekeeping Director note has been reviewed by physician. Signing provider agrees with the documented findings, assessment, and plan of care. Objective - Vital Signs Vital signs: Vital Signs Temp 98.5 F 09/15/24 08:00 Pulse 88 09/15/24 08:00 Resp 15 09/15/24 08:00 BP 117/55 09/15/24 08:00 Pulse Ox 95 09/15/24 08:00 FiO2 Intake & Output 09/14/24 09/15/24 09/15/24 18:59 06:59 18:59 Intake Total 100 118 Balance 100 118 Intake: IV 100 Oral 118 Other: # Voids 1 3 - Labs CBC & Chem 7: 09/14/24 05:06 09/14/24 05:06
[2024-09-15 15:33] VITALS: BP 150/84; PULSE 84; RESP 16; TEMP 98
--- NOTE | 2024-09-16 00:25 | PN ---
PROGRESS NOTE SUBJECTIVE: 64-year-old white female with abdominal pain, nausea, vomiting, still having some persistent emesis. No chest pain or shortness of breath. OBJECTIVE: CARDIOVASCULAR: S1, S2. LUNGS: Transmitted bruits. HEMATOLOGY: Negative Homans. PSYCHIATRIC: Fair mood and affect. VITAL SIGNS: Saturation 94 on room air, temperature 98.2, blood pressure 149/70, pulse 81, respiratory rate 16 to 18. EGD showed no evidence of gastric outlet obstruction. Possibly, she has bowel gastroenteritis, nausea, vomiting, viral syndrome. Advance diet. Possibly discharge home when cleared by surgical recommendations. MMODL / IJN: [id number] /
--- NOTE | 2024-09-16 10:55 | PN ---
PROGRESS NOTE HISTORY: A 64-year-old white female with abdominal pain, nausea, vomiting, had an EGD done. She had a barium swallow done, which shows presbyesophagus. She had a CAT scan, which was negative of the lungs, which is good. She continued to have nausea and vomiting. Medications were adjusted. Her hemoglobin dropped down to 10.8. Sodium 134, potassium 3.7, BUN 7, creatinine 0.69. CONDITION: Stable. PROGNOSIS: Guarded. Ambulate as tolerated. Please see further orders. Possible discharge. MMODL / IJN: [id number] /
== END 2024-09-15 15:43 | disposition home or self-care (01) | DRG 392 ==
LOC: EC 16:59 → 6NMEDSUR 19:51 → OBSVTOIN 19:52 → 6NMEDSUR 20:48
PROVIDERS: ADMIT Family Medicine; ATTEND Family Medicine
PROC: 0DJ08ZZ Inspection of Upper Intestinal Tract, Via Natural or Artificial Opening Endoscopic (ICD-10-PCS; principal; 2024-09-14 12:35)
DX: K22.89 Other specified disease of esophagus (principal); F31.9 Bipolar disorder, unspecified; J44.9 Chronic obstructive pulmonary disease, unspecified; H91.90 Unspecified hearing loss, unspecified ear; R11.15 Cyclical vomiting syndrome unrelated to migraine; K22.4 Dyskinesia of esophagus; G89.29 Other chronic pain; K22.70 Barrett's esophagus without dysplasia; Z79.01 Long term (current) use of anticoagulants; Z86.718 Personal history of other venous thrombosis and embolism; Z79.82 Long term (current) use of aspirin; Z79.899 Other long term (current) drug therapy; Z86.711 Personal history of pulmonary embolism; Z86.14 Personal history of Methicillin resistant Staphylococcus aureus infection; Z86.73 Personal history of transient ischemic attack (TIA), and cerebral infarction without residual deficits; Z87.891 Personal history of nicotine dependence
CPT/HCPCS: 36415; 43235; 71250; 74177; 74240; 80048; 80053; 81003; 82150; 83605; 83690; 84484; 85025; 85610; 85730; 93005; 96361; 96374; 96375; 96376; 99285

== ENCOUNTER 2025-01-21 08:43 | Inpatient (IN) | payer MEDICARE ==
--- NOTE | 2025-01-21 09:19 | ED ---
General Adult HPI - General Chief complaint: Chest Pain Stated complaint: Chest pain Time Seen by Provider: 01/21/25 08:49 Source: patient, EMS, RN notes reviewed, old records reviewed Mode of arrival: EMS Limitations: no limitations - History of Present Illness Initial comments: 64-year-old female presenting with right-sided chest pain which began after a fall 1 week ago. Patient states she thought that the pain would likely go away in time but it has not. Over the past 24 hours she developed a left-sided chest pain which was not associated with any injury. No vomiting or diaphoresis. She denies prior history of CAD. She does admit that she is anxious about the right-sided chest pain and believes this may be contributing to her left-sided chest pain. No fever. No cough. History of COPD. - Related Data Home Medications Medication Instructions Recorded Confirmed DULoxetine HCL [Cymbalta] 60 mg PO DAILY 01/21/25 01/21/25 Allergies Allergy/AdvReac Type Severity Reaction Status Date / Time hydrogen peroxide Allergy rash and Verified 01/21/25 10:13 skin burn Latex, Natural Rubber Allergy Swelling/ra Verified 01/21/25 10:13 sh metronidazole Allergy Rash/Hives Verified 01/21/25 10:13 fentanyl AdvReac decreased Verified 01/21/25 10:13 bp isosorbide AdvReac Rapid Verified 01/21/25 10:13 Heart Rate Review of Systems ROS Statement: Those systems with pertinent positive or pertinent negative responses have been documented in the HPI. ROS Other: All systems not noted in ROS Statement are negative. Past Medical History Past Medical History: Chest Pain / Angina, COPD, Deep Vein Thrombosis (DVT), Eye Disorder, GERD/Reflux, Hearing Disorder / Deafness, Memory Impairment, Osteoarthritis (OA), Pneumonia, Pulmonary Embolus (PE), Seizure Disorder, Skin Disorder, Syncope Additional Past Medical History / Comment(s): Chronic back and bilateral knee pain, DDD, cervical/back "nerve damage", "low BP", DVT right thigh, bilateral PEs in 2010 and 2014, migraines, osteoporosis, IBS, vertigo at times, R wrist 2 cysts, pt states since cataract surgery her vision has declined. CVA per CT per pt. Last Seizure -04/2024 Pneumonia 04/2024. yeast rash under breast. rt hand edematous. insomnia History of Any Multi-Drug Resistant Organisms: MRSA Date of last positivie culture/infection: >30 yrs ago MDRO Source:: left hand Past Surgical History: Appendectomy, Cholecystectomy, Heart Catheterization, Hernia Repair Additional Past Surgical History / Comment(s): EGD/COLONOSCOPY/POLYPECTOMY- BENIGN, cardiac cath 06/10/16-normal, back/bilateral knee injections. epidural steroid inj -back, bilateral cataract removals/lens implants. intestinal surgery for "vein wrapped around intestine" Past Anesthesia/Blood Transfusion Reactions: No Reported Reaction Additional Past Anesthesia/Blood Transfusion Reaction / Comment(s): Pt has mis strophobia. Past Psychological History: Bipolar, Depression, Schizophrenia Smoking Status: Current every day smoker, Former smoker, Light tobacco smoker Past Alcohol Use History: None Reported Past Drug Use History: Marijuana - Past Family History Mother Family Medical History: Cancer, COPD, Hyperlipidemia, Hypertension Additional Family Medical History / Comment(s): Mother of LUNG CANCER at the age of 74yrs. Father Family Medical History: CVA/TIA, Hypertension Additional Family Medical History / Comment(s): Father had 2 CVAs and from the second one at the age of 52yrs. He was an alcoholic. General Exam General appearance: alert, anxious Head exam: Present: atraumatic, normocephalic Eye exam: Present: normal appearance, PERRL ENT exam: Present: normal exam Neck exam: Present: normal inspection. Absent: tenderness, meningismus Respiratory exam: Present: normal lung sounds bilaterally, chest wall tenderness. Absent: respiratory distress, wheezes Cardiovascular Exam: Present: regular rate, normal rhythm GI/Abdominal exam: Present: soft. Absent: distended, tenderness Extremities exam: Present: normal inspection, normal capillary refill. Absent: calf tenderness Neurological exam: Present: alert, oriented X3, CN II-XII intact. Absent: motor sensory deficit Psychiatric exam: Present: normal affect, normal mood Skin exam: Present: warm, dry, intact. Absent: cyanosis, diaphoretic Course Vital Signs 01/21/25 01/21/25 08:46 11:19 Temperature 98.2 F Pulse Rate 104 H 118 H Respiratory 20 20 Rate Blood Pressure 105/84 105/86 O2 Sat by Pulse 98 96 Oximetry Medical Decision Making - Medical Decision Making Was pt. sent in by a medical professional or institution (, PA, STRAP MAKING MACHINE OPERATOR, urgent care, hospital, or fci...) When possible be specific @ -No Did you speak to anyone other than the patient for history (EMS, parent, family, police, friend...)? What history was obtained from this source @ -No Did you review nursing and triage notes (agree or disagree)? Why? @ -I reviewed and agree with nursing and triage notes Were old charts reviewed (outside hosp., previous admission, EMS record, old EKG, old radiological studies, urgent care reports/EKG's, fci records)? Report findings @ -No old charts were reviewed Differential Chest Pain: Stable Angina, Unstable Angina, STEMI, NSTEMI Aortic Dissection, Pneumothorax, Musculoskeletal, Esophageal Spasm GERD, Cholecystitis, Pancreatitis, Zoster, this is not meant to be an all-inclusive list. EKG interpreted by me (3pts min.). @Sinus rhythm rate of 94, NE interval 132, QRS duration 78, QTc [address] segment elevation. X-rays interpreted by me (1pt min.). @X-ray with rib films is negative for displaced fracture, no acute findings. CT interpreted by me (1pt min.). @CT angiography of the chest showing bilateral pulmonary emboli U/S interpreted by me (1pt. min.). @ -None done What testing was considered but not performed or refused? (CT, X-rays, U/S, labs)? Why? @ -None What meds were considered but not given or refused? Why? @ -None Did you discuss the management of the patient with other professionals (kee carney i.e. , PA, STRAP MAKING MACHINE OPERATOR, lab, RT, psych nurse, adoption social worker, medical practice manager, teacher, chief information security officer, case folder)? Give summary @ -No Was smoking cessation discussed for >3mins.? @ -No Was critical care preformed (if so, how long)? @ -Yes, 35 minutes Were there social determinants of health that impacted care today? How? (Homelessness, low income, unemployed, alcoholism, drug addiction, transportatio n, low edu. Level, literacy, decrease access to med. care, senior care, rehab)? @ -No Was there de-escalation of care discussed even if they declined (Discuss DNR or withdrawal of care, Hospice)? DNR status @ -No What co-morbidities impacted this encounter? (DM, HTN, Smoking, COPD, CAD, Cancer, CVA, ARF, Chemo, Hep., AIDS, mental health diagnosis, sleep apnea, morbid obesity)? @ -None Was patient admitted / discharged? Hospital course, mention meds given and route, prescriptions, significant lab abnormalities, going to OR and other pertinent info. @ -64-year-old female presenting with right-sided pleuritic chest pain after a fall. She has point tenderness on exam. X-ray was negative for displaced fracture or pneumothorax. Given the pleuritic pain at this time D-dimer was ordered which was significantly elevated and CT angiography was ordered which was positive for bilateral pulmonary embolism without signs of right heart strain. Troponin is negative. Patient will receive an echo for bilateral pulmonary embolism. She is admitted to internal medicine with cardiology on consult covering for EKOS. Undiagnosed new problem with uncertain prognosis? @ -No Drug Therapy requiring intensive monitoring for toxicity (Heparin, Nitro, Insulin, Cardizem)? @ -No Were any procedures done? @ -No Diagnosis/symptom? @Bilateral pulmonary embolism Acute, or Chronic, or Acute on Chronic? @ -Acute Uncomplicated (without systemic symptoms) or Complicated (systemic symptoms)? @ -Default Side effects of treatment? @ -No Exacerbation, Progression, or Severe Exacerbation? @ -No Poses a threat to life or bodily function? How? (Chest pain, [place], [place], pneumonia, PE, COPD, DKA, ARF, appy, cholecystitis, CVA, Diverticulitis, Homicidal, Suicidal, threat to staff... and all critical care pts) @Yes, bilateral pulmonary embolism. - Lab Data Result diagrams: 01/21/25 09:30 01/21/25 09:30 Lab Results 01/21/25 01/21/25 01/21/25 Range/Units 09:30 09:30 09:30 WBC 7.88 (4.50-10.00) 10*3/uL RBC 4.86 (4.10-5.20) 10*6/uL Hgb 14.6 (12.0-15.0) g/dL Hct 40.6 (37.2-46.3) % MCV 83.5 (80.0-97.0) fL MCH 30.0 (27.0-32.0) pg MCHC 36.0 (32.0-37.0) g/dL Plt Count 324 (140-440) 10*3/uL MPV 9.9 (9.5-12.2) fL Immature Gran % (Auto) 0.4 % Neutrophils % 71.5 % Lymphocytes % 19.7 % Monocytes % 4.7 % Eosinophils % 2.9 % Basophils % 0.8 % Immature Gran # 0.03 (0.00-0.04) 10*3/uL Neutrophils # 5.64 (1.80-7.70) 10*3/uL Lymphocytes # 1.55 (0.90-5.00) 10*3/uL Monocytes # 0.37 (0.20-1.00) 10*3/uL Eosinophils # 0.23 (0.04-0.35) 10*3/uL Basophils # 0.06 (0.00-0.10) 10*3/uL PT 9.8 L (10.0-12.5) sec INR 0.9 (<1.2) APTT 22.5 (22.0-30.0) sec D-Dimer (<0.60) mg/L FEU Sodium 132 L (137-145) mmol/L Potassium 4.6 (3.5-5.1) mmol/L Chloride 102 (98-107) mmol/L Carbon Dioxide 23 (22-30) mmol/L Anion Gap 7 mmol/L BUN 6 L (7-17) mg/dL Creatinine 0.69 (0.52-1.04) mg/dL Est GFR (CKD-EPI)AfAm >90 (>60 ml/min/1.73 sqM) Est GFR (CKD-EPI)NonAf >90 (>60 ml/min/1.73 sqM) Glucose 108 H (74-99) mg/dL Calcium 9.4 (8.4-10.2) mg/dL Magnesium 2.0 (1.6-2.3) mg/dL Total Bilirubin 0.4 (0.2-1.3) mg/dL AST 17 (14-36) U/L ALT 12 (4-34) U/L Alkaline Phosphatase 122 (38-126) U/L Troponin I (0.000-0.034) ng/mL Total Protein 6.2 L (6.3-8.2) g/dL Albumin 3.6 (3.5-5.0) g/dL 04/11/25 04/11/25 Range/Units 09:30 09:30 WBC (4.50-10.00) 10*3/uL RBC (4.10-5.20) 10*6/uL Hgb (12.0-15.0) g/dL Hct (37.2-46.3) % MCV (80.0-97.0) fL MCH (27.0-32.0) pg MCHC (32.0-37.0) g/dL Plt Count (140-440) 10*3/uL MPV (9.5-12.2) fL Immature Gran % (Auto) % Neutrophils % % Lymphocytes % % Monocytes % % Eosinophils % % Basophils % % Immature Gran # (0.00-0.04) 10*3/uL Neutrophils # (1.80-7.70) 10*3/uL Lymphocytes # (0.90-5.00) 10*3/uL Monocytes # (0.20-1.00) 10*3/uL Eosinophils # (0.04-0.35) 10*3/uL Basophils # (0.00-0.10) 10*3/uL PT (10.0-12.5) sec INR (<1.2) APTT (22.0-30.0) sec D-Dimer 5.67 H (<0.60) mg/L FEU Sodium (137-145) mmol/L Potassium (3.5-5.1) mmol/L Chloride (98-107) mmol/L Carbon Dioxide (22-30) mmol/L Anion Gap mmol/L BUN (7-17) mg/dL Creatinine (0.52-1.04) mg/dL Est GFR (CKD-EPI)AfAm (>60 ml/min/1.73 sqM) Est GFR (CKD-EPI)NonAf (>60 ml/min/1.73 sqM) Glucose (74-99) mg/dL Calcium (8.4-10.2) mg/dL Magnesium (1.6-2.3) mg/dL Total Bilirubin (0.2-1.3) mg/dL AST (14-36) U/L ALT (4-34) U/L Alkaline Phosphatase (38-126) U/L Troponin I <0.012 (0.000-0.034) ng/mL Total Protein (6.3-8.2) g/dL Albumin (3.5-5.0) g/dL Critical Care Time Critical Care Time: Yes Total Critical Care Time: 35 Disposition Clinical Impression: Bilateral pulmonary embolism Disposition: ADMITTED IP TO THIS HOSP Condition: Stable Is patient prescribed a controlled substance at d/c from ED?: No Referrals: [facility] [NON-STAFF] - 1-2 days None,Stated [Primary Care Provider] - 1-2 days Forms: [facility] PCPs Time of Disposition: 13:16
[2025-01-21] MEDS: LORazepam 2 MG/ML INJ IV STA (09:29)
[2025-01-21 09:54] LABS: Basophils # (A) 0.06 10*3/uL (0.00-0.10); Basophils % (A) 0.8 %; Eosinophils # (A) 0.23 10*3/uL (0.04-0.35); Eosinophils % (A) 2.9 %; HCT 40.6 % (37.2-46.3); HGB 14.6 g/dL (12.0-15.0); Lymphocytes # (A) 1.55 10*3/uL (0.90-5.00); Lymphocytes % (A) 19.7 %; MCV 83.5 fL (80.0-97.0); Mean Platelet Volume 9.9 fL (9.5-12.2); Monocytes # (A) 0.37 10*3/uL (0.20-1.00); Monocytes % (A) 4.7 %; Neutrophils # (A) 5.64 10*3/uL (1.80-7.70); Neutrophils % (A) 71.5 %; Platelet Count 324 10*3/uL (140-440); RBC 4.86 10*6/uL (4.10-5.20); RDW 15.3 % (11.5-14.5); WBC 7.88 10*3/uL (4.50-10.00)
--- NOTE | 2025-01-21 10:00 | XR ---
EXAMINATION TYPE: XR ribs RT w pa chest xray DATE OF EXAM: 01/21/2025 9:43 AM COMPARISON: None CLINICAL INDICATION: Female, 64 years old with history of CP after fall; [facility], pain TECHNIQUE: XR ribs RT w pa chest xray; Frontal and oblique views of the ribs with frontal chest radio graph. FINDINGS: The ribs have a normal appearance. No evidence of fracture. Overall, the lungs are clear. The cardiac silhouette is normal in size. The remaining osseous structures are intact. IMPRESSION: No acute osseous pathology. If there remains concern for fracture consider CT. [facility], , 01/21/2025 9:58 AM
[2025-01-21 10:04] LABS: INR 0.9 (<1.2); Partial Thromboplastin Time 22.5 sec (22.0-30.0); Prothrombin Time 9.8 sec (10.0-12.5)
[2025-01-21 10:06] LABS: ALT 12 U/L (4-34); AST 17 U/L (14-36); African American GFR (CKD) >90 (>60 ml/min/1.73 sqM); Albumin 3.6 g/dL (3.5-5.0); Alkaline Phosphatase 122 U/L (38-126); Anion Gap 7 mmol/L; Blood Urea Nitrogen 6 mg/dL (7-17); Calcium 9.4 mg/dL (8.4-10.2); Carbon Dioxide 23 mmol/L (22-30); Chloride 102 mmol/L (98-107); Glucose 108 mg/dL (74-99); Non-African American GFR(CKD) >90 (>60 ml/min/1.73 sqM); Potassium 4.6 mmol/L (3.5-5.1); Sodium 132 mmol/L (137-145); Total Bilirubin 0.4 mg/dL (0.2-1.3); Total Protein 6.2 g/dL (6.3-8.2)
[2025-01-21] MEDS: KETOROLAC 15 MG/ML 1 ML VIAL IVP STA (12:02)
[2025-01-21] MEDS ORDERED: HEPARIN SODIUM 1,000 UN/ML (10ML VL) IV PRN (13:11)
[2025-01-21] MEDS ORDERED: NALOXONE 0.4 MG/ML 1 ML VIAL IV PRN (13:13)
--- NOTE | 2025-01-21 13:15 | CT ---
EXAMINATION TYPE: CT angio chest DATE OF EXAM: 01/21/2025 12:57 PM COMPARISON: 09/14/2024. CLINICAL INDICATION: Female, 64 years old with history of Chest pain, positive D-dimer; sob, elevated d dimer TECHNIQUE/CONTRAST: CTA scan of the thorax is performed with IV Contrast, patient injected with 100 mL of Isovue 370, MIP images are created and reviewed these are created on a separate workstation.. CT DLP: 212 mGycm, Automated exposure control for dose reduction was used. FINDINGS: Lungs/Pleura: No evidence of focal consolidation, pleural effusion or pneumothorax. Posterior pleural thickening/scarring with trace pleural effusion. Mild paraseptal emphysema changes. Apical scarring noted on the right. Airway: Large airways are patent. Heart: Size within normal limits. Mild coronary artery calcifications present. Vasculature: Bilateral filling defects within the pulmonary arterial vasculature some which are occlu sive. Mediastinum: No gross evidence of adenopathy. Musculoskeletal: Mild disc degeneration changes are present throughout the thoracolumbar spine second mindi to osteophyte formation and facet joint arthropathy. Soft Tissues/lymph nodes: Unremarkable. Lower neck: No significant findings. Upper Abdomen: No significant findings. IMPRESSION: 1. Scattered bilateral pulmonary emboli. No evidence for right heart strain. 2. Mild emphysema. 3. Mild degeneration changes of the spine. Findings communicated to Marty Valera MD on 01/21/2025 1:[address] Marty Oconnor. Follow up recommendations for incidental pulmonary nodules, if there are any, are per [employer] [employer] or [place] [employer]. https://radiopaedia.org/articles/fnosmorznj-ajljmpj-luryguxqu-lhavax-opouhkhexbgppfc-[email or web address]?lang=us [facility], , 01/21/2025 1:13 PM
[2025-01-21] MEDS: HYDROmorphone 0.5 MG/0.5 ML SYRINGE IVP STA (13:49)
[2025-01-21] MEDS: SODIUM CHLORIDE 0.9% 1,000 ML IV ONE (13:50)
[2025-01-21] MEDS: HEPARIN SODIUM 1,000 UN/ML (10ML VL) IV ONE (13:55)
[2025-01-21] MEDS: HEPARIN SOD,PORK IN 0.45% NACL 25,000 UNIT in 0.45% NACL 1 250ML.BAG IV SCH (13:56)
[2025-01-21] MEDS: SODIUM CHLORIDE 0.9% 1,000 ML IV SCH (14:43)
[2025-01-21] MEDS: HYDROmorphone 2 MG/ML 1 ML SYRINGE IVP PRN (17:51)
--- NOTE | 2025-01-21 19:51 | CA ---
Transthoracic Echo Report Name: Judy Saba Age: 64 Gender: F : 1960 Exam Date: 01/21/2025 15:27 Exam Location: [facility] Ht (in): 66 Wt (lb): 150 Ordering Physician: Marty Valera MD Attending/Referring Phys: [id number], [place] [facility] Attendant Kaylin Palacio RDCS Procedure CPT: Indications: b/l PE Cardiac Hx: Technical Quality: Good Contrast 1: Total Dose (mL): Contrast 2: Total Dose (mL): MEASUREMENTS (Male / Female) Normal Values 2D ECHO LV Diastolic Diameter PLAX 4.2 cm 4.2 - 5.9 / 3.9 - 5.3 cm LV Systolic Diameter PLAX 2.8 cm IVS Diastolic Thickness 1.3 cm 0.6 - 1.0 / 0.6 - 0.9 cm LVPW Diastolic Thickness 1.2 cm 0.6 - 1.0 / 0.6 - 0.9 cm LV Relative Wall Thickness 0.6 RV Internal Dim ED PLAX 3.2 cm LA Systolic Diameter LX 3.6 cm 3.0 - 4.0 / 2.7 - 3.8 cm LV Diastolic Volume MOD BP 70.6 cm??? 67 - 155 / 56 - 104 cm??? LV Systolic Volume MOD BP 17.3 cm??? 22 - 58 / 19 - 49 cm??? LV Ejection Fraction MOD BP 75.5 % >= 55 % LV Cardiac Index MOD BP 2356.9 cm???/min???m??? LV Diastolic Volume MOD 4C 70.6 cm??? LV Systolic Volume MOD 4C 16.9 cm??? LV Ejection Fraction MOD 4C 76.0 % LV Cardiac Index MOD 4C 2372.1 cm???/min???m??? LV Diastolic Length 4C 7.9 cm LV Systolic Length 4C 6.3 cm LV Diastolic Volume MOD 2C 69.6 cm??? LV Systolic Volume MOD 2C 18.5 cm??? LV Ejection Fraction MOD 2C 73.4 % LV Cardiac Index MOD 2C 2257.3 cm???/min???m??? LV Diastolic Length 2C 8.2 cm LV Systolic Length 2C 6.3 cm M-MODE Aortic Root Diameter MM 3.6 cm DOPPLER AV Peak Velocity 180.7 cm/s AV Peak Gradient 13.1 mmHg AI Peak Velocity 409.4 cm/s AI Peak Gradient 67.1 mmHg AI Pressure Half Time 745.4 ms Mitral E Point Velocity 62.1 cm/s Mitral A Point Velocity 80.4 cm/s Mitral E to A Ratio 0.8 MV Deceleration Time 208.0 ms MV E' Velocity 7.0 cm/s Mitral E to MV E' Ratio 8.9 TR Peak Velocity 263.0 cm/s TR Peak Gradient 27.7 mmHg Right Ventricular Systolic Press 37.7 mmHg FINDINGS Left Ventricle Left ventricular ejection fraction is estimated at 55%. Left ventricular cavity size normal. Mildly increased septal wall thickness. Mildly increased posterior wall thickness. Normal left ventricular wall motion. Right Ventricle Normal right ventricular size and function. Mild pulmonary hypertension. Right Atrium Normal right atrial size. No right atrial thrombus or mass seen. Left Atrium Normal left atrial size. No left atrial thrombus or mass present. Mitral Valve Structurally normal mitral valve. Mitral valve thickened. Mild mitral annular calcification. Aortic Valve Trileaflet aortic valve. Aortic valve sclerosis. Tricuspid Valve Structurally normal tricuspid valve. Mild tricuspid regurgitation. Pulmonic Valve Pulmonic valve not well visualized. No pulmonic regurgitation. Pericardium No pericardial effusion. Aorta Normal size aortic root and proximal ascending aorta. CONCLUSIONS Technically difficult study for interpretation Normal LV systolic function Poorly visualized intracardiac valves Aortic sclerosis and mitral annular calcification Previewed by: Dr. Mukesh Gómez MD (Electronically Signed) Final Date: 21 January 2025 19:50
[2025-01-22 04:27] LABS: Basophils # (A) 0.05 10*3/uL (0.00-0.10); Basophils % (A) 0.9 %; Eosinophils # (A) 0.28 10*3/uL (0.04-0.35); Eosinophils % (A) 5.1 %; HCT 36.1 % (37.2-46.3); HGB 11.9 g/dL (12.0-15.0); Lymphocytes # (A) 2.63 10*3/uL (0.90-5.00); Lymphocytes % (A) 47.8 %; MCH 28.3 pg (27.0-32.0); MCV 85.7 fL (80.0-97.0); Mean Platelet Volume 9.7 fL (9.5-12.2); Monocytes # (A) 0.35 10*3/uL (0.20-1.00); Monocytes % (A) 6.4 %; Neutrophils # (A) 2.18 10*3/uL (1.80-7.70); Neutrophils % (A) 39.6 %; Platelet Count 283 10*3/uL (140-440); RBC 4.21 10*6/uL (4.10-5.20); RDW 15.4 % (11.5-14.5)
--- NOTE | 2025-01-22 10:03 | P.CRDCN ---
History of Present Illness History of present illness: HISTORY OF PRESENT ILLNESS: This is a 64-year-old female with a past medical history significant for pulmonary embolism. 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 We have been asked to see the patient in consultation for pulmonary embolism. Patient examined at the bedside in the emergency room. Patient states that she started to have shortness of breath last . She states that she was going to seek medical care at that time but then the shortness of breath started to get better so she waited. She states yesterday the shortness of breath got worse and she was having pain on the right side of her chest so she came to the emergency room for further evaluation. The patient was found to have bilateral pulmonary embolisms and she was started on IV heparin. The patient does have a history of pulmonary embolism about 7 to 8 years ago. She states that she is unsure of why she had a pulmonary embolism at that time. However she does give history that her mother also had a history of PEs. The patient was previously on Xarelto and had been getting samples from her primary care physician. However she has been unable to get these and cannot afford her co-pay. She states that she has not been on anticoagulation since October or November. She denies any known history of hypertension, hyperlipidemia, or diabetes. She is a current cigarette smoker. She states that she used to smoke 3 packs/day and is now down to smoking 5 packs of cigarettes a month. DIAGNOSTICS: - EKG reveals sinus mechanism with no signs of acute ischemia. - Chest CTA scattered bilateral pulmonary emboli. No evidence for right heart strain. Mild emphysema. Mild degeneration changes of the spine. - Laboratory data: WBC 5.50. Hemoglobin 11.9. Platelet count 283. Sodium 132. Potassium 4.6. BUN 6. Creatinine 0.69. Troponin negative x 2 - Current home cardiac medications include none - Echocardiogram obtained this admission reveals normal LV systolic function, poorly visualized intracardiac valves. - Cardiac catheterization history: Patient denies REVIEW OF SYSTEMS: At the time of my exam: CONSTITUTIONAL: Denies fever or chills. HEENT: Denies blurred vision, vision changes, or eye pain. Denies hemoptysis CARDIOVASCULAR: Denies chest pain. Denies orthopnea. Denies PND. Denies palpitations RESPIRATORY: Reports shortness of breath. GASTROINTESTINAL: Denies abdominal pain. Denies nausea or vomiting. HEMATOLOGIC: Denies bleeding disorders. GENITOURINARY: Denies any blood in urine. SKIN: Denies pruitis. Denies rash. PHYSICAL EXAM: VITAL SIGNS: Reviewed. GENERAL: Well-developed in no acute distress. HEENT: Head is normocephalic. Pupils are equal, round. Sclerae anicteric. Mucous membranes of the mouth are moist. Neck supple. No JVD or thyromegaly LUNGS: Respirations even and unlabored. Lungs essentially clear to auscultation bilaterally. HEART: Regular rate and rhythm. S1 and S2 heard. ABDOMEN: Soft. Nondistended. Nontender. EXTREMITIES: Normal range of motion. No clubbing or cyanosis. Peripheral pulses intact. No lower extremity edema NEUROLOGIC: Awake and alert. Oriented x 3. ASSESSMENT: Shortness of breath Pleuritic chest pain, troponin negative x 2 Bilateral pulmonary embolism History of PE, approximately 7 years ago Medication noncompliance, secondary to financial constraints Nicotine dependence Family history of pulmonary embolism PLAN: 2D echo obtained and reviewed Continue IV heparin Patient unable to afford co-pay for Xarelto/Eliquis. Will begin Coumadin. Patient is agreeable to coming to cardiology office to have INR checked. Continue IV heparin until Coumadin is therapeutic Smoking cessation recommended Check hemoglobin A1c and lipid panel Further recommendations pending patient course Nurse practitioner note has been reviewed by physician. Signing provider agrees with the documented findings, assessment, and plan of care documented by [employer] COORDINATOR as a scribe. Past Medical History Past Medical History: Chest Pain / Angina, COPD, Deep Vein Thrombosis (DVT), Eye Disorder, GERD/Reflux, Hearing Disorder / Deafness, Memory Impairment, Osteoarthritis (OA), Pneumonia, Pulmonary Embolus (PE), Seizure Disorder, Skin Disorder, Syncope Additional Past Medical History / Comment(s): Chronic back and bilateral knee pain, DDD, cervical/back "nerve damage", "low BP", DVT right thigh, bilateral PEs in 2010 and 2014, migraines, osteoporosis, IBS, vertigo at times, R wrist 2 cysts, pt states since cataract surgery her vision has declined. CVA per CT per pt. Last Seizure -04/2024 Pneumonia 04/2024. yeast rash under breast. rt hand edematous. insomnia History of Any Multi-Drug Resistant Organisms: MRSA Date of last positivie culture/infection: >30 yrs ago MDRO Source:: left hand Past Surgical History: Appendectomy, Cholecystectomy, Heart Catheterization, He rnia Repair Additional Past Surgical History / Comment(s): EGD/COLONOSCOPY/POLYPECTOMY- BENIGN, cardiac cath 06/10/16-normal, back/bilateral knee injections. epidural steroid inj -back, bilateral cataract removals/lens implants. intestinal surgery for "vein wrapped around intestine", hernia repair, siezure Past Anesthesia/Blood Transfusion Reactions: No Reported Reaction Additional Past Anesthesia/Blood Transfusion Reaction / Comment(s): Pt has claustrophobia. Smoking Status: Former smoker - Past Family History Mother Family Medical History: Cancer, COPD, Hyperlipidemia, Hypertension Additional Family Medical History / Comment(s): Mother of LUNG CANCER at the age of 74yrs. Father Family Medical History: CVA/TIA, Hypertension Additional Family Medical History / Comment(s): Father had 2 CVAs and from the second one at the age of 52yrs. He was an alcoholic. Medications and Allergies Home Medications Medication Instructions Recorded Confirmed Type DULoxetine HCL [Cymbalta] 60 mg PO DAILY 01/21/25 01/21/25 History Allergies Allergy/AdvReac Type Severity Reaction Status Date / Time hydrogen peroxide Allergy rash and Verified 01/21/25 10:13 skin burn Latex, Natural Rubber Allergy Swelling/ra Verified 01/21/25 10:13 sh metronidazole Allergy Rash/Hives Verified 01/21/25 10:13 fentanyl AdvReac decreased Verified 01/21/25 10:13 bp isosorbide AdvReac Rapid Verified 01/21/25 10:13 Heart Rate Physical Exam Vitals: Vital Signs Pulse Resp BP Pulse Ox 01/22/25 07:18 87 17 116/67 96 01/22/25 03:57 120 H 17 128/78 94 L 01/22/25 00:23 77 17 127/66 93 L 01/21/25 20:41 100 18 141/72 93 L 01/21/25 18:44 85 18 112/63 97 01/21/25 14:03 107 H 20 118/82 95 01/21/25 11:19 118 H 20 105/86 96 Intake and Output 01/21/25 01/22/25 01/22/25 22:59 06:59 14:59 Intake Total 81.851 85.22 Balance 81.851 85.22 Intake: Intake, IV Titration 81.851 85.22 Amount Heparin Sod,Pork in 0.45% 81.851 85.22 NaCl 25,000 unit In 0.45 % NaCl 1 250ml.bag @ 18 UNITS/KG/HR 12.247 mls/hr IV .[id number] [facility] Rx#: [id number] Other: Weight 68.039 kg Results 01/22/25 03:59 01/21/25 09:30 Cardiac Enzymes 01/21/25 01/21/25 01/21/25 Range/Units 09:30 09:30 12:05 AST 17 (14-36) U/L Troponin I <0.012 <0.012 (0.000-0.034) ng/mL Coagulation 01/21/25 01/21/25 01/22/25 Range/Units 09:30 19:36 03:59 PT 9.8 L (10.0-12.5) sec APTT 22.5 93.9 H 83.8 H (22.0-30.0) sec CBC 01/22/25 Range/Units 03:59 WBC 5.50 (4.50-10.00) 10*3/uL RBC 4.21 (4.10-5.20) 10*6/uL Hgb 11.9 L (12.0-15.0) g/dL Hct 36.1 L (37.2-46.3) % Plt Count 283 (140-440) 10*3/uL Comprehensive Metabolic Panel 01/21/25 Range/Units 09:30 Sodium 132 L (137-145) mmol/L Potassium 4.6 (3.5-5.1) mmol/L Chloride 102 (98-107) mmol/L Carbon Dioxide 23 (22-30) mmol/L BUN 6 L (7-17) mg/dL Creatinine 0.69 (0.52-1.04) mg/dL Glucose 108 H (74-99) mg/dL Calcium 9.4 (8.4-10.2) mg/dL AST 17 (14-36) U/L ALT 12 (4-34) U/L Alkaline Phosphatase 122 (38-126) U/L Total Protein 6.2 L (6.3-8.2) g/dL Albumin 3.6 (3.5-5.0) g/dL Current Medications Generic Name Dose Route Start Last Admin Trade Name Gabrieleq PRN Reason Stop Dose Admin Heparin Sodium (Porcine) 0 unit 01/21/25 13:11 Heparin Sodium 1,000 Un/Ml (10ml Vl) IV PER PROTOCOL PRN Low PTT Protocol Hydromorphone HCl 1 mg 01/21/25 17:39 01/22/25 08:06 Hydromorphone 2 Mg/Ml 1 Ml Syringe IVP 1 mg Q4HR PRN Administration Moderate to Severe Pain (4-10) Heparin Sodium/Sodium Chloride 250 mls @ 12.247 mls/hr 01/21/25 13:15 01/22/25 06:08 25,000 unit/ Sodium Chloride IV 13 units/kg/hr .[id number] RHEA 8.845 mls/hr Titration Protocol 18 UNITS/KG/HR Sodium Chloride 1,000 mls @ 75 mls/hr 01/21/25 13:30 01/22/25 03:54 Saline 0.9% IV Not Given .[id number] [facility] Miscellaneous Information 1 each 01/22/25 08:49 Warfarin Per Pharmacy MISCELLANE DIRECTED PRN Per Protocol Protocol Naloxone HCl 0.2 mg 01/21/25 13:13 Naloxone 0.4 Mg/Ml 1 Ml Vial IV Q2M PRN Opioid Reversal Warfarin Sodium 5 mg 01/22/25 18:00 Warfarin 5 Mg Tab PO 01/22/25 18:01 ONCE@1800 ONE Intake and Output 01/21/25 01/22/25 01/22/25 22:59 06:59 14:59 Intake Total 81.851 85.22 Balance 81.851 85.22 Intake: Intake, IV Titration 81.851 85.22 Amount Heparin Sod,Pork in 0.45% 81.851 85.22 NaCl 25,000 unit In 0.45 % NaCl 1 250ml.bag @ 18 UNITS/KG/HR 12.247 mls/hr IV .[id number] [facility] Rx#: [id number] Other: Weight 68.039 kg Patient Weight 01/23/25 06:59 Weight 68.039 kg 01/22/25 03:59 01/21/25 09:30
--- NOTE | 2025-01-22 12:24 | US ---
EXAMINATION TYPE: US venous doppler duplex LE BI DATE OF EXAM: 01/22/2025 12:02 PM COMPARISON: US 2023, 2022, 2020 CLINICAL INDICATION: Female, 64 years old with history of PE, assess for DVT; TECHNIQUE: The lower extremity deep venous system is examined utilizing real time linear array sonog evelina with graded compression, color doppler sonography, and spectral doppler. SIDE PERFORMED: Bilateral FINDINGS: VESSELS IMAGED: Common Femoral Vein Deep Femoral Vein Greater Saphenous Vein * Femoral Vein Popliteal Vein Small Saphenous Vein * Proximal Calf Veins (* superficial vessels) Right Leg: Partial flow and partial compression at distal femoral vein - some echogenic material may be present suggesting this may be chronic. Left Leg: Appears negative for DVT IMPRESSION: 1. Nonobstructing deep venous thrombosis within the distal right femoral vein. This may be chronic. [facility], , 01/22/2025 12:21 PM
[2025-01-22] MEDS: DULoxetine HCL 60 MG CAPSULE.DR PO SCH (13:41)
[2025-01-22] MEDS: Rivaroxaban Initiation Dose--VTE 15 MG TAB PO SCH (14:52)
[2025-01-22] MEDS: ACETAMINOPHEN TAB 325 MG TAB PO PRN (17:14)
[2025-01-22] MEDS ORDERED: WARFARIN 5 MG TAB PO ONE (18:00)
--- NOTE | 2025-01-22 19:12 | P.HPIM ---
History of Present Illness H&P Date: 01/21/25 Chief Complaint: Chest pain 64-year-old female, history of COPD, DVT/PE, seizure disorder, gastroesophageal reflux disease, memory impairment, presenting with right-sided chest pain which began after a fall 1 week ago. Patient states she thought that the pain would likely go away in time but it has not. Over the past 24 hours she developed a left-sided chest pain which was not associated with any injury. No vomiting or diaphoresis. She denies prior history of CAD. She does admit that she is anxious about the right-sided chest pain and believes this may be contributing to her left-sided chest pain. No fever. No cough. - EKG reveals sinus mechanism with no signs of acute ischemia. - Chest CTA scattered bilateral pulmonary emboli. No evidence for right heart strain. Mild emphysema. Mild degeneration changes of the spine. - Laboratory data: WBC 5.50. Hemoglobin 11.9. Platelet count 283. Sodium 132. Potassium 4.6. BUN 6. Creatinine 0.69. Troponin negative x 2 Review of Systems REVIEW OF SYSTEMS: CONSTITUTIONAL: No fever, no malaise, no fatigue. HEENT: No recent visual problems or hearing problems. Denied any sore throat. CARDIOVASCULAR: No chest pain, orthopnea, PND, no palpitations, no syncope. PULMONARY: No shortness of breath, no cough, no hemoptysis. GASTROINTESTINAL: No diarrhea, no nausea, no vomiting, no abdominal pain. NEUROLOGICAL: No headaches, no weakness, no numbness. HEMATOLOGICAL: Denies any bleeding or petechiae. GENITOURINARY: Denies any burning micturition, frequency, or urgency. MUSCULOSKELETAL/RHEUMATOLOGICAL: Denies any joint pain, swelling, or any muscle pain. ENDOCRINE: Denies any polyuria or polydipsia. The rest of the 14-point review of systems is negative. Past Medical History Past Medical History: Chest Pain / Angina, COPD, Deep Vein Thrombosis (DVT), Eye Disorder, GERD/Reflux, Hearing Disorder / Deafness, Memory Impairment, Osteoarthritis (OA), Pneumonia, Pulmonary Embolus (PE), Seizure Disorder, Skin Disorder, Syncope Additional Past Medical History / Comment(s): Chronic back and bilateral knee pain, DDD, cervical/back "nerve damage", "low BP", DVT right thigh, bilateral PEs in 2010 and 2014, migraines, osteoporosis, IBS, vertigo at times, R wrist 2 cysts, pt states since cataract surgery her vision has declined. CVA per CT per pt. Last Seizure -04/2024 Pneumonia 04/2024. yeast rash under breast. rt hand edematous. insomnia History of Any Multi-Drug Resistant Organisms: MRSA Date of last positivie culture/infection: >30 yrs ago MDRO Source:: left hand Past Surgical History: Appendectomy, Cholecystectomy, Heart Catheterization, Hernia Repair Additional Past Surgical History / Comment(s): EGD/COLONOSCOPY/POLYPECTOMY- BENIGN, cardiac cath 06/10/16-normal, back/bilateral knee injections. epidural steroid inj -back, bilateral cataract removals/lens implants. intestinal surgery for "vein wrapped around intestine" Past Anesthesia/Blood Transfusion Reactions: No Reported Reaction Additional Past Anesthesia/Blood Transfusion Reaction / Comment(s): Pt has claustrophobia. Past Psychological History: Bipolar, Depression, Schizophrenia Smoking Status: Current every day smoker, Former smoker, Light tobacco smoker Past Alcohol Use History: None Reported Past Drug Use History: Marijuana - Past Family History Mother Family Medical History: Cancer, COPD, Hyperlipidemia, Hypertension Additional Family Medical History / Comment(s): Mother of LUNG CANCER at the age of 74yrs. Father Family Medical History: CVA/TIA, Hypertension Additional Family Medical History / Comment(s): Father had 2 CVAs and from the second one at the age of 52yrs. He was an alcoholic. Medications and Allergies Home Medications Medication Instructions Recorded Confirmed Type DULoxetine HCL [Cymbalta] 60 mg PO DAILY 01/21/25 01/21/25 History Allergies Allergy/AdvReac Type Severity Reaction Status Date / Time hydrogen peroxide Allergy rash and Verified 01/21/25 10:13 skin burn Latex, Natural Rubber Allergy Swelling/ra Verified 01/21/25 10:13 sh metronidazole Allergy Rash/Hives Verified 01/21/25 10:13 fentanyl AdvReac decreased Verified 01/21/25 10:13 bp isosorbide AdvReac Rapid Verified 01/21/25 10:13 Heart Rate Physical Exam Vitals: Vital Signs Temp Pulse Resp BP Pulse Ox 01/21/25 14:03 107 H 20 118/82 95 01/21/25 11:19 118 H 20 105/86 96 01/21/25 08:46 98.2 F 104 H 20 105/84 98 Intake and Output 04/11/25 04/11/25 04/11/25 06:59 14:59 22:59 Other: Weight 68.039 kg Head exam: Present: atraumatic, normocephalic Eye exam: Present: normal appearance, PERRL ENT exam: Present: normal exam Neck exam: Present: normal inspection. Absent: tenderness, meningismus Respiratory exam: Present: normal lung sounds bilaterally, chest wall tenderness. Absent: respiratory distress, wheezes Cardiovascular Exam: Present: regular rate, normal rhythm GI/Abdominal exam: Present: soft. Absent: distended, tenderness Extremities exam: Present: normal inspection, normal capillary refill. Absent: calf tenderness Neurological exam: Present: alert, oriented X3, CN II-XII intact. Absent: motor sensory deficit Psychiatric exam: Present: normal affect, normal mood Skin exam: Present: warm, dry, intact. Absent: cyanosis, diaphoretic Results CBC & Chem 7: 01/22/25 03:59 01/21/25 09:30 Labs: Abnormal Lab Results - Last 24 Hours (Table) 01/21/25 01/21/25 01/21/25 Range/Units 09:30 09:30 09:30 PT 9.8 L (10.0-12.5) sec D-Dimer 5.67 H (<0.60) mg/L FEU Sodium 132 L (137-145) mmol/L BUN 6 L (7-17) mg/dL Glucose 108 H (74-99) mg/dL Total Protein 6.2 L (6.3-8.2) g/dL Assessment and Plan Assessment: 1. Bilateral pulmonary embolism -Chest CTA completed in ED reveals scattered bilateral pulmonary emboli. No evidence of right heart strain. Mild emphysema - Patient has been placed on IV heparin per protocol 2. Chest pain; possibly related to bilateral PE - Patient is placed on telemetry; plan to monitor EKG and trend troponin - We will order 2D echo; consult cardiology 3. History of anxiety/depression; patient takes Cymbalta 60 mg daily 4. Mild hyponatremia; patient has been placed on IV fluids in form of normal saline at a rate of 75 cc an hour - We will monitor YANETH's; monitor electrolytes; will order serum and urine osmolality if sodium level remains persistently low DVT prophylaxis; IV heparin CODE STATUS; full code
--- NOTE | 2025-01-22 19:13 | P.PN ---
Subjective Progress Note Date: 01/22/25 64-year-old female, history of COPD, DVT/PE, seizure disorder, gastroesophageal reflux disease, memory impairment, presenting with right-sided chest pain which began after a fall 1 week ago. Patient states she thought that the pain would likely go away in time but it has not. Over the past 24 hours she developed a left-sided chest pain which was not associated with any injury. No vomiting or diaphoresis. She denies prior history of CAD. She does admit that she is anxious about the right-sided chest pain and believes this may be contributing to her left-sided chest pain. No fever. No cough. - EKG reveals sinus mechanism with no signs of acute ischemia. - Chest CTA scattered bilateral pulmonary emboli. No evidence for right heart strain. Mild emphysema. Mild degeneration changes of the spine. - Laboratory data: WBC 5.50. Hemoglobin 11.9. Platelet count 283. Sodium 132. Potassium 4.6. BUN 6. Creatinine 0.69. Troponin negative x 2 Objective - Vital Signs Vital signs: Vital Signs Temp 98.2 F 01/21/25 08:46 Pulse 87 01/22/25 07:18 Resp 17 01/22/25 07:18 BP 116/67 01/22/25 07:18 Pulse Ox 96 01/22/25 07:18 FiO2 Intake & Output 01/21/25 01/22/25 01/22/25 18:59 06:59 18:59 Intake Total 167.071 54.986 Balance 167.071 54.986 Weight 68.039 kg 68.039 kg Intake: Intake, IV Titration 167.071 54.986 Amount Heparin Sod,Pork in 0.45% 167.071 54.986 NaCl 25,000 unit In 0.45 % NaCl 1 250ml.bag @ 18 UNITS/KG/HR 12.247 mls/hr IV .[id number] [facility] Rx#: [id number] - Exam Head exam: Present: atraumatic, normocephalic Eye exam: Present: normal appearance, PERRL ENT exam: Present: normal exam Neck exam: Present: normal inspection. Absent: tenderness, meningismus Respiratory exam: Present: normal lung sounds bilaterally, chest wall tenderness. Absent: respiratory distress, wheezes Cardiovascular Exam: Present: regular rate, normal rhythm GI/Abdominal exam: Present: soft. Absent: distended, tenderness Extremities exam: Present: normal inspection, normal capillary refill. Absent: calf tenderness Neurological exam: Present: alert, oriented X3, CN II-XII intact. Absent: motor sensory deficit Psychiatric exam: Present: normal affect, normal mood Skin exam: Present: warm, dry, intact. Absent: cyanosis, diaphoretic - Labs CBC & Chem 7: 01/22/25 03:59 01/21/25 09:30 Labs: Abnormal Lab Results - Last 24 Hours (Table) 01/21/25 01/22/25 01/22/25 Range/Units 19:36 03:59 03:59 Hgb 11.9 L (12.0-15.0) g/dL Hct 36.1 L (37.2-46.3) % APTT 93.9 H 83.8 H (22.0-30.0) sec Assessment and Plan Assessment: 1. Bilateral pulmonary embolism -Chest CTA completed in ED reveals scattered bilateral pulmonary emboli. No evidence of right heart strain. Mild emphysema - Patient has been placed on IV heparin per protocol 2. Chest pain; possibly related to bilateral PE - Patient is placed on telemetry; plan to monitor EKG and trend troponin - We will order 2D echo; consult cardiology 3. History of anxiety/depression; patient takes Cymbalta 60 mg daily 4. Mild hyponatremia; patient has been placed on IV fluids in form of normal saline at a rate of 75 cc an hour - We will monitor YANETH's; monitor electrolytes; will order serum and urine osmolality if sodium level remains persistently low DVT prophylaxis; IV heparin CODE STATUS; full code
[2025-01-22] MEDS: ONDANSETRON 4 MG/2 ML VIAL IVP PRN (23:31)
[2025-01-23 06:31] LABS: Basophils # (A) 0.05 10*3/uL (0.00-0.10); Basophils % (A) 1.4 %; Eosinophils # (A) 0.16 10*3/uL (0.04-0.35); Eosinophils % (A) 4.5 %; HCT 32.9 % (37.2-46.3); HGB 10.8 g/dL (12.0-15.0); Lymphocytes # (A) 1.08 10*3/uL (0.90-5.00); Lymphocytes % (A) 30.7 %; MCH 28.5 pg (27.0-32.0); MCHC 32.8 g/dL (32.0-37.0); MCV 86.8 fL (80.0-97.0); Mean Platelet Volume 9.9 fL (9.5-12.2); Monocytes # (A) 0.24 10*3/uL (0.20-1.00); Monocytes % (A) 6.8 %; Neutrophils # (A) 1.98 10*3/uL (1.80-7.70); Neutrophils % (A) 56.3 %; Platelet Count 230 10*3/uL (140-440); RBC 3.79 10*6/uL (4.10-5.20); RDW 15.1 % (11.5-14.5); WBC 3.52 10*3/uL (4.50-10.00)
[2025-01-23 06:53] LABS: African American GFR (CKD) >90 (>60 ml/min/1.73 sqM); Anion Gap 6 mmol/L; Blood Urea Nitrogen 4 mg/dL (7-17); Carbon Dioxide 24 mmol/L (22-30); Chloride 107 mmol/L (98-107); Glucose 81 mg/dL (74-99); Non-African American GFR(CKD) >90 (>60 ml/min/1.73 sqM); Potassium 4.1 mmol/L (3.5-5.1); Sodium 137 mmol/L (137-145)
[2025-01-23] MEDS: PANTOPRAZOLE 40 MG TABLET PO SCH (07:32)
[2025-01-23] MEDS: LORazepam 0.5 MG TAB PO PRN (11:48)
--- NOTE | 2025-01-23 12:26 | P.PN ---
Subjective HISTORY OF PRESENT ILLNESS: This is a 64-year-old female with a past medical history significant for pulmonary embolism. 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 We have been asked to see the patient in consultation for pulmonary embolism. Patient examined at the bedside in the emergency room. Patient states that she started to have shortness of breath last . She states that she was going to seek medical care at that time but then the shortness of breath started to get better so she waited. She states yesterday the shortness of breath got worse and she was having pain on the right side of her chest so [facility]. The patient was found to have bilateral pulmonary embolisms and she was started on IV heparin. The patient does have a history of pulmonary embolism about 7 to 8 years ago. She states that she is unsure of why she had a pulmonary embolism at that time. However she does give history that her mother also had a history of PEs. The patient was previously on Xarelto and had been getting samples from her primary care physician. However she has been unable to get these and cannot afford her co-pay. She states that she has not been on anticoagulation since October or November. She denies any known history of hypertension, hyperlipidemia, or diabetes. She is a current cigarette smoker. She states that she used to smoke 3 packs/day and is now down to smoking 5 packs of cigarettes a month. DIAGNOSTICS: - EKG reveals sinus mechanism with no signs of acute ischemia. - Chest CTA scattered bilateral pulmonary emboli. No evidence for right heart strain. Mild emphysema. Mild degeneration changes of the spine. - Laboratory data: WBC 5.50. Hemoglobin 11.9. Platelet count 283. Sodium 132. Potassium 4.6. BUN 6. Creatinine 0.69. Troponin negative x 2 - Current home cardiac medications include none - Echocardiogram obtained this admission reveals normal LV systolic function, poorly visualized intracardiac valves. - Cardiac catheterization history: Patient denies Addendum entered and electronically signed by Soha Funes NP-C 01/22/25 12:45: Patient reevaluated in the ER with Dr. Coyne. Patient gave a very different story of her past medical history to Dr. Coyne. Initially she stated that she was off of Xarelto for a couple of months. Now she states that she has not been on blood thinners for 13 years. Patient initially said that she had a PE about 7 years ago. Now she states that she had a PE 10 years ago and had blood clots in her legs about 2 years ago. Patient seems to be a very poor historian and is unsure of her exact medical history and her accuracy of her medications is questionable. Additionally she states that she was living in a homeless alf earlier this year. Initial plan was to place patient on Coumadin. However question patient's ability to come to the office frequently for INR checks. We will place patient on Xarelto instead and have case management check coverage on Friday. 01/23/2025 Patient examined this morning at the bedside. Patient currently denies chest pain or pressure. She denies shortness of breath. Telemetry reveals sinus mechanism. Patient is complaining of having gas pains this morning. She has also been having episodes of bilious emesis. Doppler performed revealing nonobstructing DVT within the right distal femoral vein. PHYSICAL EXAM: VITAL SIGNS: Reviewed. GENERAL: Well-developed in no acute distress. HEENT: Head is normocephalic. Pupils are equal, round. Sclerae anicteric. Mucous membranes of the mouth are moist. Neck supple. No JVD or thyromegaly LUNGS: Respirations even and unlabored. Lungs essentially clear to auscultation bilaterally. HEART: Regular rate and rhythm. S1 and S2 heard. ABDOMEN: Soft. Nondistended. Nontender. EXTREMITIES: Normal range of motion. No clubbing or cyanosis. Peripheral pulses intact. No lower extremity edema NEUROLOGIC: Awake and alert. Oriented x 3. ASSESSMENT: Shortness of breath Pleuritic chest pain, troponin negative x 2 Bilateral pulmonary embolism DVT of distal right femoral vein, possibly chronic per doppler History of PE, approximately 7 years ago Medication noncompliance, secondary to financial constraints Nicotine dependence Family history of pulmonary embolism PLAN: Continue Xarelto. We will have case management check coverage tomorrow. Smoking cessation recommended Continue telemetry monitoring Further recommendations pending patient course Nurse practitioner note has been reviewed by physician. Signing provider agrees with the documented findings, assessment, and plan of care documented by GENERAL INTERNAL MEDICINE DOCTOR as a scribe. Objective - Vital Signs Vital signs: Vital Signs Temp 98.4 F 01/23/25 11:26 Pulse 107 H 01/23/25 11:26 Resp 20 01/23/25 11:26 BP 131/76 01/23/25 11:26 Pulse Ox 96 01/23/25 11:26 FiO2 Intake & Output 01/22/25 01/23/25 01/23/25 18:59 06:59 18:59 Intake Total 332.622 93 4722 Balance 332.688 43 7719 Weight 68.039 kg 61.8 kg Intake: IV 10 20 20 Invasive Line 1 10 20 20 Intake, IV Titration 82.700 900 Amount Heparin Sod,Pork in 0.45% 82.700 NaCl 25,000 unit In 0.45 % NaCl 1 250ml.bag @ 18 UNITS/KG/HR 12.247 mls/hr IV .[id number] [facility] Rx#: [id number] Sodium Chloride 0.9% 1, 900 000 ml @ 75 mls/hr IV . [id number] [facility] Rx#:[id number] Oral 240 240 Other: Voiding Method Toilet Toilet Toilet # Voids 2 2 # Bowel Movements 1 - Labs CBC & Chem 7: 01/23/25 05:50 01/23/25 05:50 Labs: Abnormal Lab Results - Last 24 Hours (Table) 01/21/25 01/22/25 01/23/25 Range/Units 09:30 12:23 05:50 WBC 3.52 L (4.50-10.00) 10*3/uL RBC 3.79 L (4.10-5.20) 10*6/uL Hgb 10.8 L (12.0-15.0) g/dL Hct 32.9 L (37.2-46.3) % APTT 43.6 H (22.0-30.0) sec BUN (7-17) mg/dL Cholesterol 221.00 H (0.00-200.00) mg/dL LDL Cholesterol, Calc 147.0 H (0.0-131.0) mg/dL 01/23/25 Range/Units 05:50 WBC (4.50-10.00) 10*3/uL RBC (4.10-5.20) 10*6/uL Hgb (12.0-15.0) g/dL Hct (37.2-46.3) % APTT (22.0-30.0) sec BUN 4 L (7-17) mg/dL Cholesterol (0.00-200.00) mg/dL LDL Cholesterol, Calc (0.0-131.0) mg/dL
--- NOTE | 2025-01-23 14:54 | P.PN ---
Subjective Progress Note Date: 01/23/25 64-year-old female, history of COPD, DVT/PE, seizure disorder, gastroesophageal reflux disease, memory impairment, presenting with right-sided chest pain which began after a fall 1 week ago. Patient states she thought that the pain would likely go away in time but it has not. Over the past 24 hours she developed a left-sided chest pain which was not associated with any injury. No vomiting or diaphoresis. She denies prior history of CAD. She does admit that she is anxious about the right-sided chest pain and believes this may be contributing to her left-sided chest pain. No fever. No cough. - EKG reveals sinus mechanism with no signs of acute ischemia. - Chest CTA scattered bilateral pulmonary emboli. No evidence for right heart strain. Mild emphysema. Mild degeneration changes of the spine. - Laboratory data: WBC 5.50. Hemoglobin 11.9. Platelet count 283. Sodium 132. Potassium 4.6. BUN 6. Creatinine 0.69. Troponin negative x 2 01/23/2025 Patient is seen and examined this morning at the bedside. Patient currently denies chest pain or pressure. She denies shortness of breath. Telemetry reveals sinus mechanism. Patient is complaining of having gas pains this morning. She has also been having episodes of bilious emesis. Doppler performed revealing nonobstructing DVT within the right distal femoral vein. - Patient has been treated with IV heparin with plans to transition to Xarelto; patient claimed that she would not be able to afford Xarelto; cardiology recommended Coumadin with plans for discharge once INR is therapeutic; however given patient's noncompliance with treatment and her living situation currently patient is living in a homeless long-term, frequent visits to the to the lab for INR monitoring is not feasible at this time - Cardiology has placed patient on Xarelto with consult to case management to check coverage - Patient reports anxiety; has been placed on Ativan as needed - Discharge in next 24 hours once pricing on anticoagulation is checked and is feasible to the patient Objective - Vital Signs Vital signs: Vital Signs Temp 98.2 F 01/23/25 07:24 Pulse 84 01/23/25 07:24 Resp 16 01/23/25 07:24 BP 144/82 01/23/25 07:24 Pulse Ox 96 01/23/25 07:24 FiO2 Intake & Output 04/10/0601/23/25 01/23/25 18:59 06:59 18:59 Intake Total 332.476 59 0896 Balance 332.781 44 9069 Weight 68.039 kg 61.8 kg Intake: IV 10 20 10 Invasive Line 1 10 20 10 Intake, IV Titration 82.700 900 Amount Heparin Sod,Pork in 0.45% 82.700 NaCl 25,000 unit In 0.45 % NaCl 1 250ml.bag @ 18 UNITS/KG/HR 12.247 mls/hr IV .[id number] [facility] Rx#: [id number] Sodium Chloride 0.9% 1, 900 000 ml @ 75 mls/hr IV . [id number] [facility] Rx#:[id number] Oral 240 240 Other: Voiding Method Toilet Toilet Toilet # Voids 2 2 # Bowel Movements 1 - Exam Head exam: Present: atraumatic, normocephalic Eye exam: Present: normal appearance, PERRL ENT exam: Present: normal exam Neck exam: Present: normal inspection. Absent: tenderness, meningismus Respiratory exam: Present: normal lung sounds bilaterally, chest wall tenderness. Absent: respiratory distress, wheezes Cardiovascular Exam: Present: regular rate, normal rhythm GI/Abdominal exam: Present: soft. Absent: distended, tenderness Extremities exam: Present: normal inspection, normal capillary refill. Absent: calf tenderness Neurological exam: Present: alert, oriented X3, CN II-XII intact. Absent: motor sensory deficit Psychiatric exam: Present: normal affect, normal mood Skin exam: Present: warm, dry, intact. Absent: cyanosis, diaphoretic - Labs CBC & Chem 7: 01/23/25 05:50 01/23/25 05:50 Labs: Abnormal Lab Results - Last 24 Hours (Table) 01/21/25 01/22/25 01/23/25 Range/Units 09:30 12:23 05:50 WBC 3.52 L (4.50-10.00) 10*3/uL RBC 3.79 L (4.10-5.20) 10*6/uL Hgb 10.8 L (12.0-15.0) g/dL Hct 32.9 L (37.2-46.3) % APTT 43.6 H (22.0-30.0) sec BUN (7-17) mg/dL Cholesterol 221.00 H (0.00-200.00) mg/dL LDL Cholesterol, Calc 147.0 H (0.0-131.0) mg/dL 01/23/25 Range/Units 05:50 WBC (4.50-10.00) 10*3/uL RBC (4.10-5.20) 10*6/uL Hgb (12.0-15.0) g/dL Hct (37.2-46.3) % APTT (22.0-30.0) sec BUN 4 L (7-17) mg/dL Cholesterol (0.00-200.00) mg/dL LDL Cholesterol, Calc (0.0-131.0) mg/dL Assessment and Plan Assessment: 1. Bilateral pulmonary embolism -Chest CTA completed in ED reveals scattered bilateral pulmonary emboli. No evidence of right heart strain. Mild emphysema - Patient has been placed on IV heparin per protocol 2. Chest pain; possibly related to bilateral PE - Patient is placed on telemetry; plan to monitor EKG and trend troponin - We will order 2D echo; consult cardiology 3. History of anxiety/depression; patient takes Cymbalta 60 mg daily 4. Mild hyponatremia; patient has been placed on IV fluids in form of normal saline at a rate of 75 cc an hour - We will monitor YANETH's; monitor electrolytes; will order serum and urine osmolality if sodium level remains persistently low DVT prophylaxis; IV heparin CODE STATUS; full code
[2025-01-24 06:02] LABS: Basophils # (A) 0.05 10*3/uL (0.00-0.10); Eosinophils # (A) 0.06 10*3/uL (0.04-0.35); Eosinophils % (A) 1.2 %; HCT 31.6 % (37.2-46.3); HGB 10.4 g/dL (12.0-15.0); Lymphocytes # (A) 1.18 10*3/uL (0.90-5.00); Lymphocytes % (A) 23.6 %; MCH 28.3 pg (27.0-32.0); MCHC 32.9 g/dL (32.0-37.0); MCV 85.9 fL (80.0-97.0); Monocytes # (A) 0.23 10*3/uL (0.20-1.00); Monocytes % (A) 4.6 %; Neutrophils # (A) 3.45 10*3/uL (1.80-7.70); Neutrophils % (A) 69.2 %; Platelet Count 225 10*3/uL (140-440); RBC 3.68 10*6/uL (4.10-5.20); RDW 14.9 % (11.5-14.5); WBC 4.99 10*3/uL (4.50-10.00)
[2025-01-24 06:30] LABS: African American GFR (CKD) >90 (>60 ml/min/1.73 sqM); Anion Gap 4 mmol/L; Blood Urea Nitrogen 3 mg/dL (7-17); Calcium 8.8 mg/dL (8.4-10.2); Carbon Dioxide 24 mmol/L (22-30); Chloride 104 mmol/L (98-107); Glucose 83 mg/dL (74-99); Non-African American GFR(CKD) >90 (>60 ml/min/1.73 sqM); Potassium 3.8 mmol/L (3.5-5.1); Sodium 132 mmol/L (137-145)
--- NOTE | 2025-01-24 12:57 | P.PN ---
Subjective HISTORY OF PRESENT ILLNESS: This is a 64-year-old female with a past medical history significant for pulmonary embolism. 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 We have been asked to see the patient in consultation for pulmonary embolism. Patient examined at the bedside in the emergency room. Patient states that she started to have shortness of breath last . She states that she was going to seek medical care at that time but then the shortness of breath started to get better so she waited. She states yesterday the shortness of breath got worse and she was having pain on the right side of her chest so she came to the [facility] ency room for further evaluation. The patient was found to have bilateral pulmonary embolisms and she was started on IV heparin. The patient does have a history of pulmonary embolism about 7 to 8 years ago. She states that she is unsure of why she had a pulmonary embolism at that time. However she does give history that her mother also had a history of PEs. The patient was previously on Xarelto and had been getting samples from her primary care physician. However she has been unable to get these and cannot afford her co-pay. She states that she has not been on anticoagulation since October or November. She denies any known history of hypertension, hyperlipidemia, or diabetes. She is a current cigarette smoker. She states that she used to smoke 3 packs/day and is now down to smoking 5 packs of cigarettes a month. DIAGNOSTICS: - EKG reveals sinus mechanism with no signs of acute ischemia. - Chest CTA scattered bilateral pulmonary emboli. No evidence for right heart strain. Mild emphysema. Mild degeneration changes of the spine. - Laboratory data: WBC 5.50. Hemoglobin 11.9. Platelet count 283. Sodium 132. Potassium 4.6. BUN 6. Creatinine 0.69. Troponin negative x 2 - Current home cardiac medications include none - Echocardiogram obtained this admission reveals normal LV systolic function, poorly visualized intracardiac valves. - Cardiac catheterization history: Patient denies Addendum entered and electronically signed by Soha Funes NP-C 01/22/25 12:45: Patient reevaluated in the ER with Dr. Coyne. Patient gave a very different story of her past medical history to Dr. Coyne. Initially she stated that she was off of Xarelto for a couple of months. Now she states that she has not been on blood thinners for 13 years. Patient initially said that she had a PE about 7 years ago. Now she states that she had a PE 10 years ago and had blood clots in her legs about 2 years ago. Patient seems to be a very poor historian and is unsure of her exact medical history and her accuracy of her medications is questionable. Additionally she states that she was living in a homeless senior care earlier this year. Initial plan was to place patient on Coumadin. However question patient's ability to come to the office frequently for INR checks. We will place patient on Xarelto instead and have case management check coverage on Friday. 01/23/2025 Patient examined this morning at the bedside. Patient currently denies chest pain or pressure. She denies shortness of breath. Telemetry reveals sinus mechanism. Patient is complaining of having gas pains this morning. She has also been having episodes of bilious emesis. Doppler performed revealing nonobstructing DVT within the right distal femoral vein. 01/24/2025 Patient examined this morning at the bedside. Patient denies chest pain or pressure. Denies SOB. Vital signs are stable. Vital signs are stable. PHYSICAL EXAM: VITAL SIGNS: Reviewed. GENERAL: Well-developed in no acute distress. HEENT: Head is normocephalic. Pupils are equal, round. Sclerae anicteric. Mucous membranes of the mouth are moist. Neck supple. No JVD or thyromegaly LUNGS: Respirations even and unlabored. Lungs essentially clear to auscultation bilaterally. HEART: Regular rate and rhythm. S1 and S2 heard. ABDOMEN: Soft. Nondistended. Nontender. EXTREMITIES: Normal range of motion. No clubbing or cyanosis. Peripheral pulses intact. No lower extremity edema NEUROLOGIC: Awake and alert. Oriented x 3. ASSESSMENT: Shortness of breath Pleuritic chest pain, troponin negative x 2 Bilateral pulmonary embolism DVT of distal right femoral vein, possibly chronic per doppler History of PE, approximately 7 years ago Medication noncompliance, secondary to financial constraints Nicotine dependence Family history of pulmonary embolism PLAN: Per case management, patient's co-pay for Xarelto was $297 a month. Will defer to primary medicine for further anticoagulation management for pulmonary embolism Smoking cessation recommended Continue telemetry monitoring Patient stable for discharge from a cardiac standpoint once anticoagulation has been determined by primary medicine Further recommendations pending patient course Nurse practitioner note has been reviewed by physician. Signing provider agrees with the documented findings, assessment, and plan of care documented by ACDS BLOCK 1 OPERATOR as a scribe. Objective - Vital Signs Vital signs: Vital Signs Temp 98.4 F 01/24/25 08:39 Pulse 102 H 01/24/25 08:39 Resp 16 01/24/25 08:39 BP 152/67 01/24/25 08:39 Pulse Ox 95 01/24/25 08:39 FiO2 Intake & Output 01/23/25 01/24/25 01/24/25 18:59 06:59 18:59 Intake Total 1620 20 Balance 1620 20 Weight 62.9 kg Intake: IV 20 20 Invasive Line 1 20 20 Intake, IV Titration 900 Amount Sodium Chloride 0.9% 1, 900 000 ml @ 75 mls/hr IV . [id number] [facility] Rx#:[id number] Oral 700 Other: Voiding Method Toilet Toilet # Voids 2 2 # Bowel Movements 1 - Labs CBC & Chem 7: 01/24/25 05:32 01/24/25 05:32 Labs: Abnormal Lab Results - Last 24 Hours (Table) 01/24/25 01/24/25 Range/Units 05:32 05:32 RBC 3.68 L (4.10-5.20) 10*6/uL Hgb 10.4 L (12.0-15.0) g/dL Hct 31.6 L (37.2-46.3) % Sodium 132 L (137-145) mmol/L BUN 3 L (7-17) mg/dL
[2025-01-24 16:58] LABS: INR 1.2 (<1.2); Prothrombin Time 12.7 sec (10.0-12.5)
[2025-01-24 17:07] VITALS: BMI 22.4
[2025-01-24] MEDS ORDERED: WARFARIN 5 MG TAB PO ONE (18:00)
[2025-01-24] MEDS: WARFARIN 5 MG TAB PO ONE (19:34)
--- NOTE | 2025-01-24 21:58 | P.PN ---
Subjective Progress Note Date: 01/24/25 64-year-old female, history of COPD, DVT/PE, seizure disorder, gastroesophageal reflux disease, memory impairment, presenting with right-sided chest pain which began after a fall 1 week ago. Patient states she thought that the pain would likely go away in time but it has not. Over the past 24 hours she developed a left-sided chest pain which was not associated with any injury. No vomiting or diaphoresis. She denies prior history of CAD. She does admit that she is anxious about the right-sided chest pain and believes this may be contributing to her left-sided chest pain. No fever. No cough. - EKG reveals sinus mechanism with no signs of acute ischemia. - Chest CTA scattered bilateral pulmonary emboli. No evidence for right heart strain. Mild emphysema. Mild degeneration changes of the spine. - Laboratory data: WBC 5.50. Hemoglobin 11.9. Platelet count 283. Sodium 132. Potassium 4.6. BUN 6. Creatinine 0.69. Troponin negative x 2 01/23/2025 Patient is seen and examined this morning at the bedside. Patient currently denies chest pain or pressure. She denies shortness of breath. Telemetry reveals sinus mechanism. Patient is complaining of having gas pains this morning. She has also been having episodes of bilious emesis. Doppler performed revealing nonobstructing DVT within the right distal femoral vein. - Patient has been treated with IV heparin with plans to transition to Xarelto; patient claimed that she would not be able to afford Xarelto; cardiology recommended Coumadin with plans for discharge once INR is therapeutic; however given patient's noncompliance with treatment and her living situation currently patient is living in a homeless longterm, frequent visits to the to the lab for INR monitoring is not feasible at this time - Cardiology has placed patient on Xarelto with consult to case management to check coverage - Patient reports anxiety; has been placed on Ativan as needed - Discharge in next 24 hours once pricing on anticoagulation is checked and is feasible to the patient 01/24/2025 Patient is able to sit in the chair. Awake alert and oriented x 2-3. No complaints of chest pain or shortness of breath. No fever no chills. Patient was not able to afford co-pay for Xarelto. Patient is currently on Eliquis at home but could not refill her medication even though it is less expensive than Xarelto. Patient will be initiated on Coumadin as per pharmacy dose. She received today's dose of Xarelto. Also will add Lovenox bridging for bridging. Laboratory data showed WBC 4.9 hemoglobin 10.4 and platelets 225 sodium 132 potassium 3.8 chloride 104 bicarb is 24 BUN 3 and creatinine 0.60 and calcium 8.8. Current medications reviewed. Objective - Vital Signs Vital signs: Vital Signs Temp 98.7 F 01/24/25 19:33 Pulse 89 01/24/25 19:33 Resp 16 01/24/25 19:33 BP 151/80 01/24/25 19:33 Pulse Ox 95 01/24/25 19:33 FiO2 Intake & Output 01/24/25 01/24/25 01/25/25 06:59 18:59 06:59 Intake Total 20 540 Balance 20 540 Weight 62.9 kg 62.9 kg Intake: IV 20 300 Invasive Line 1 20 Sodium Chloride 0.9% 1, 300 000 ml @ 75 mls/hr IV . [id number] [facility] Rx#:[id number] Oral 240 Other: Voiding Method Toilet Toilet # Voids 2 - Exam PHYSICAL EXAMINATION: Patient is lying in the bed comfortably, no acute distress, awake alert and oriented.. HEENT: Normocephalic. Neck is supple. Pupils reactive. Nostrils clear. Oral cavity is moist. Neck reveals no JVD, carotid bruits, or thyromegaly. CHEST EXAMINATION: Trachea is central. Symmetrical expansion. Lung dangelo clear to auscultation and percussion. CARDIAC: Normal S1, S2 with no gallops. No murmurs ABDOMEN: Soft. Bowel sounds normal. No organomegaly. No abdominal bruits. Extremities: reveal no edema. No clubbing or cyanosis Neurologically awake, alert, oriented x3 with well-coordinated movements. No focal deficits noted Skin: No rash or skin lesions. Psychiatric: Coperative. Nonsuicidal Musculoskeletal: No joint swelling or deformity. Normal range of motion. - Labs CBC & Chem 7: 01/24/25 05:32 01/24/25 05:32 Labs: Abnormal Lab Results - Last 24 Hours (Table) 01/24/25 01/24/25 01/24/25 Range/Units 05:32 05:32 16:21 RBC 3.68 L (4.10-5.20) 10*6/uL Hgb 10.4 L (12.0-15.0) g/dL Hct 31.6 L (37.2-46.3) % PT 12.7 H (10.0-12.5) sec INR 1.2 H (<1.2) Sodium 132 L (137-145) mmol/L BUN 3 L (7-17) mg/dL Assessment and Plan Assessment: 1. Bilateral pulmonary embolism -Chest CTA completed in ED reveals scattered bilateral pulmonary emboli. No evidence of right heart strain. Mild emphysema - Patient was on IV heparin. Changed to Xarelto but patient could not afford co-pay. - Patient will be started on Coumadin tonight. 2. Chest pain; possibly related to bilateral PE - Patient is placed on telemetry; plan to monitor EKG and trend troponin -2D echocardiogram and cardiology is on board. 3. History of anxiety/depression; patient takes Cymbalta 60 mg daily 4. Mild hyponatremia; patient was on IV normal saline with improvement in sodium. Encourage increased solute intake. - We will monitor YANETH's; monitor electrolytes; will order serum and urine osmolality if sodium level remains persistently low DVT prophylaxis; Coumadin CODE STATUS; full code Time with Patient: Greater than 30
[2025-01-25 06:27] LABS: Basophils # (A) 0.04 10*3/uL (0.00-0.10); Basophils % (A) 0.7 %; Eosinophils # (A) 0.03 10*3/uL (0.04-0.35); Eosinophils % (A) 0.6 %; HCT 31.1 % (37.2-46.3); HGB 10.7 g/dL (12.0-15.0); Lymphocytes # (A) 1.17 10*3/uL (0.90-5.00); Lymphocytes % (A) 21.5 %; MCH 28.5 pg (27.0-32.0); MCHC 34.4 g/dL (32.0-37.0); MCV 82.9 fL (80.0-97.0); Mean Platelet Volume 10.3 fL (9.5-12.2); Monocytes # (A) 0.28 10*3/uL (0.20-1.00); Monocytes % (A) 5.2 %; Neutrophils # (A) 3.89 10*3/uL (1.80-7.70); Neutrophils % (A) 71.6 %; Platelet Count 247 10*3/uL (140-440); RBC 3.75 10*6/uL (4.10-5.20); RDW 14.6 % (11.5-14.5); WBC 5.43 10*3/uL (4.50-10.00)
[2025-01-25 06:42] LABS: INR 1.1 (<1.2); Prothrombin Time 11.7 sec (10.0-12.5)
--- NOTE | 2025-01-25 13:39 | P.PN ---
Subjective HISTORY OF PRESENT ILLNESS: This is a 64-year-old female with a past medical history significant for pulmonary embolism. Patient does not follow with a cash person. We have been asked to see the patient in consultation for pulmonary embolism. Patient examined at the bedside in the emergency room. Patient states that she started to have shortness of breath last . She states that she was going to seek medical care at that time but then the shortness of breath started to get better so she waited. She states yesterday the shortness of breath got worse and she was having pain on the right side of her chest so she came to the [facility] ency room for further evaluation. The patient was found to have bilateral pulmonary embolisms and she was started on IV heparin. The patient does have a history of pulmonary embolism about 7 to 8 years ago. She states that she is unsure of why she had a pulmonary embolism at that time. However she does give history that her mother also had a history of PEs. The patient was previously on Xarelto and had been getting samples from her primary care physician. However she has been unable to get these and cannot afford her co-pay. She states that she has not been on anticoagulation since October or November. She denies any known history of hypertension, hyperlipidemia, or diabetes. She is a current cigarette smoker. She states that she used to smoke 3 packs/day and is now down to smoking 5 packs of cigarettes a month. DIAGNOSTICS: - EKG reveals sinus mechanism with no signs of acute ischemia. - Chest CTA scattered bilateral pulmonary emboli. No evidence for right heart strain. Mild emphysema. Mild degeneration changes of the spine. - Laboratory data: WBC 5.50. Hemoglobin 11.9. Platelet count 283. Sodium 132. Potassium 4.6. BUN 6. Creatinine 0.69. Troponin negative x 2 - Current home cardiac medications include none - Echocardiogram obtained this admission reveals normal LV systolic function, poorly visualized intracardiac valves. - Cardiac catheterization history: Patient denies Addendum entered and electronically signed by Soha Funes NP-C 01/22/25 12:45: Patient reevaluated in the ER with Dr. Coyne. Patient gave a very different story of her past medical history to Dr. Coyne. Initially she stated that she was off of Xarelto for a couple of months. Now she states that she has not been on blood thinners for 13 years. Patient initially said that she had a PE about 7 years ago. Now she states that she had a PE 10 years ago and had blood clots in her legs about 2 years ago. Patient seems to be a very poor historian and is unsure of her exact medical history and her accuracy of her medications is questionable. Additionally she states that she was living in a homeless [place] [facility] earlier this year. Initial plan was to place patient on Coumadin. However question patient's ability to come to the office frequently for INR checks. We will place patient on Xarelto instead and have case management check coverage on Friday. 01/23/2025 Patient examined this morning at the bedside. Patient currently denies chest pain or pressure. She denies shortness of breath. Telemetry reveals sinus mechanism. Patient is complaining of having gas pains this morning. She has also been having episodes of bilious emesis. Doppler performed revealing nonobstructing DVT within the right distal femoral vein. 01/24/2025 Patient examined this morning at the bedside. Patient denies chest pain or pressure. Denies SOB. Vital signs are stable. Vital signs are stable. Per case management, patient's co-pay for Xarelto was $297 a month. Will defer to primary medicine for further anticoagulation management for pulmonary embolism 01/25/2025 Patient examined this morning at the bedside. Patient denies chest pain or pressure. Denies SOB. Vital signs are stable. Vital signs are stable. Patient has been started on Coumadin. PHYSICAL EXAM: VITAL SIGNS: Reviewed. GENERAL: Well-developed in no acute distress. HEENT: Head is normocephalic. Pupils are equal, round. Sclerae anicteric. Mucous membranes of the mouth are moist. Neck supple. No JVD or thyromegaly LUNGS: Respirations even and unlabored. Lungs essentially clear to auscultation bilaterally. HEART: Regular rate and rhythm. S1 and S2 heard. ABDOMEN: Soft. Nondistended. Nontender. EXTREMITIES: Normal range of motion. No clubbing or cyanosis. Peripheral pulse s intact. No lower extremity edema NEUROLOGIC: Awake and alert. Oriented x 3. ASSESSMENT: Shortness of breath Pleuritic chest pain, troponin negative x 2 Bilateral pulmonary embolism DVT of distal right femoral vein, possibly chronic per doppler History of PE, approximately 7 years ago Medication noncompliance, secondary to financial constraints Nicotine dependence Family history of pulmonary embolism PLAN: Per case management, patient's co-pay for Xarelto was $297 a month. Patient has been switched to Coumadin per primary medicine. Smoking cessation recommended No further inpatient recommendations from a cardiac standpoint We will sign off. Please reconsult if needed. Nurse practitioner note has been reviewed by physician. Signing provider agrees with the documented findings, assessment, and plan of care documented by MACHINE ETCHER as a scribe. Objective - Vital Signs Vital signs: Vital Signs Temp 99.1 F 01/25/25 11:17 Pulse 92 01/25/25 11:17 Resp 16 01/25/25 11:17 BP 147/73 01/25/25 11:17 Pulse Ox 97 01/25/25 11:17 FiO2 Intake & Output 01/24/25 01/25/25 01/25/25 18:59 06:59 18:59 Intake Total 540 Balance 540 Weight 62.9 kg 62.7 kg Intake: IV 300 Sodium Chloride 0.9% 1, 300 000 ml @ 75 mls/hr IV . [id number] [facility] Rx#:[id number] Oral 240 Other: Voiding Method Toilet # Voids 1 - Labs CBC & Chem 7: 01/25/25 05:57 01/24/25 05:32 Labs: Abnormal Lab Results - Last 24 Hours (Table) 01/24/25 01/25/25 Range/Units 16:21 05:57 RBC 3.75 L (4.10-5.20) 10*6/uL Hgb 10.7 L (12.0-15.0) g/dL Hct 31.1 L (37.2-46.3) % Eosinophils # 0.03 L (0.04-0.35) 10*3/uL PT 12.7 H (10.0-12.5) sec INR 1.2 H (<1.2)
[2025-01-25] MEDS: ENOXAPARIN 60 MG/0.6 ML SYRINGE SQ SCH (15:02)
[2025-01-25] MEDS: WARFARIN 5 MG TAB PO ONE (17:35)
[2025-01-26 07:07] LABS: INR 1.8 (<1.2)
[2025-01-26 11:26] VITALS: BP 125/70; PULSE 106; RESP 14; TEMP 98.5
[2025-01-26] MEDS ORDERED: WARFARIN 5 MG TAB PO ONE (18:00)
== END 2025-01-26 17:21 | disposition home or self-care (01) | DRG 176 ==
LOC: EC 08:43 → 3SCARD 13:13
PROVIDERS: ADMIT Hospitalist; ATTEND Hospitalist
DX: I26.99 Other pulmonary embolism without acute cor pulmonale (principal); E87.1 Hypo-osmolality and hyponatremia; J43.9 Emphysema, unspecified; F32.A Depression, unspecified; I82.511 Chronic embolism and thrombosis of right femoral vein; Z59.01 Sheltered homelessness; R07.89 Other chest pain; F17.210 Nicotine dependence, cigarettes, uncomplicated; W19.XXXA Unspecified fall, initial encounter; R11.14 Bilious vomiting; F41.9 Anxiety disorder, unspecified; Z88.3 Allergy status to other anti-infective agents; Z79.899 Other long term (current) drug therapy; Z88.8 Allergy status to other drugs, medicaments and biological substances; Z91.040 Latex allergy status; Z86.711 Personal history of pulmonary embolism; Z91.148 Patient's other noncompliance with medication regimen for other reason; Z82.49 Family history of ischemic heart disease and other diseases of the circulatory system; Z86.73 Personal history of transient ischemic attack (TIA), and cerebral infarction without residual deficits
CPT/HCPCS: 36415; 71275; 80048; 80053; 80061; 83036; 83735; 84484; 85025; 85379; 85610; 85730; 93005; 93306; 93970

== ENCOUNTER 2025-02-03 16:01 | Emergency (ER) | payer MEDICARE ==
[2025-02-03 16:16] VITALS: RESP 16; TEMP 98.2
--- NOTE | 2025-02-03 16:32 | CT ---
EXAMINATION TYPE: CT brain cely wo con DATE OF EXAM: 02/03/2025 COMPARISON: 04/22/2018 CLINICAL INDICATION: Female, 64 years old with history of code coag; PHH, CODE COAG, FALL ON THINNERS TECHNIQUE: CT scan of the head and cervical spine are performed without contrast. CT DLP: 1318.[address] CTDI: mGy Automated exposure control for dose reduction was used. Findings: Head CT: Ventricles, basal cisterns and sulci over convexities within normal limits and there is no mass, mass effect or shift of midline structures. No abnormal density is seen throughout the brain parenchyma and there is no acute intra or extra-axia l hemorrhage. Posterior fossa including the brainstem, fourth ventricle and cerebellar pontine angles are grossly n ormal. The intraorbital contents appear normal and symmetric. Visualized paranasal sinuses are well aerated. CT cervical spine: Craniovertebral junction relationships and prevertebral soft tissues are normal. The cervical vertebral segments are normal in height and alignment and there is no fracture subluxati on. There is moderate disc space narrowing, vacuum phenomena and mild spondylosis at the C5-6 level indic ating moderate degenerative disc. The remaining intervertebral disks throughout the cervical region a re well preserved in height without significant degeneration. There is moderate degeneration of the uncovertebral joints at C5-6. The facet joints are intact. There is no bony encroachment on the cervical canal. There is moderate bony neural foraminal stenosis C5-6 on the left. The paraspinal soft tissues unremarkable. IMPRESSION: 1. Head CT: No acute bleed or mass effect. 2. CT cervical spine: No acute trauma. Degenerative changes at C5-6 as described above. [facility], , 02/03/2025 4:30 PM
--- NOTE | 2025-02-03 17:08 | ED ---
Fall HPI - General Chief Complaint: Fall Stated Complaint: Head injury Time Seen by Provider: 02/03/25 17:03 Source: patient, EMS, RN notes reviewed Mode of arrival: EMS - History of Present Illness Initial Comments: 64-year-old female presenting for head injury 1 hour prior to arrival. States she was walking home from [employer] with her granddaughter when she tripped on a branch and fell forward, striking her face on the ground. Denies loss of consciousness. She does take warfarin. She is complaining of a headache and a bruise above her left eyebrow. Denies vision changes, nausea, vomiting. States she has some abrasions on her left wrist otherwise no other injuries. Last tetanus within the last 5 years. - Related Data Previous Rx's Medication Instructions Recorded DULoxetine HCL [Cymbalta] 60 mg PO DAILY #30 cap 01/24/25 Pantoprazole [Protonix] 40 mg PO DAILY #30 tab 01/24/25 Enoxaparin [Lovenox] 60 mg SQ Q12HR 5 Days #10 each 01/26/25 Warfarin [Coumadin] 5 mg PO DAILY #30 tab 01/26/25 Allergies Allergy/AdvReac Type Severity Reaction Status Date / Time hydrogen peroxide Allergy rash and Verified 01/21/25 10:13 skin burn Latex, Natural Rubber Allergy Swelling/ra Verified 01/21/25 10:13 sh metronidazole Allergy Rash/Hives Verified 01/21/25 10:13 fentanyl AdvReac decreased Verified 01/21/25 10:13 bp isosorbide AdvReac Rapid Verified 01/21/25 10:13 Heart Rate Review of Systems ROS Statement: Those systems with pertinent positive or pertinent negative responses have been documented in the HPI. ROS Other: All systems not noted in ROS Statement are negative. Past Medical History Past Medical History: Chest Pain / Angina, COPD, Deep Vein Thrombosis (DVT), Eye Disorder, GERD/Reflux, Hearing Disorder / Deafness, Memory Impairment, Osteoarthritis (OA), Pneumonia, Pulmonary Embolus (PE), Seizure Disorder, Skin Disorder, Syncope Additional Past Medical History / Comment(s): Chronic back and bilateral knee pain, DDD, cervical/back "nerve damage", "low BP", DVT right thigh, bilateral PEs in 2010 and 2014, migraines, osteoporosis, IBS, vertigo at times, R wrist 2 cysts, pt states since cataract surgery her vision has declined. CVA per CT per pt. Last Seizure -04/2024 Pneumonia 04/2024. yeast rash under breast. rt hand edematous. insomnia History of Any Multi-Drug Resistant Organisms: MRSA Date of last positivie culture/infection: >30 yrs ago MDRO Source:: left hand Past Surgical History: Appendectomy, Cholecystectomy, Heart Catheterization, Hernia Repair Additional Past Surgical History / Comment(s): EGD/COLONOSCOPY/POLYPECTOMY- BENIGN, cardiac cath 06/10/16-normal, back/bilateral knee injections. epidural steroid inj -back, bilateral cataract removals/lens implants. intestinal surgery for "vein wrapped around intestine" Past Anesthesia/Blood Transfusion Reactions: No Reported Reaction Additional Past Anesthesia/Blood Transfusion Reaction / Comment(s): Pt has claustrophobia. Past Psychological History: Bipolar, Depression, Schizophrenia Smoking Status: Current every day smoker, Former smoker, Light tobacco smoker Past Alcohol Use History: None Reported Past Drug Use History: Marijuana - Past Family History Mother Family Medical History: Cancer, COPD, Hyperlipidemia, Hypertension Additional Family Medical History / Comment(s): Mother of LUNG CANCER at the age of 74yrs. Father Family Medical History: CVA/TIA, Hypertension Additional Family Medical History / Comment(s): Father had 2 CVAs and from the second one at the age of 52yrs. He was an alcoholic. General Exam Limitations: no limitations General appearance: alert, in no apparent distress Head exam: Present: normocephalic. Absent: atraumatic, normal inspection (There is a hematoma present above left eyebrow with tenderness to palpation) Eye exam: Present: normal appearance, PERRL, EOMI. Absent: scleral icterus, conjunctival injection, periorbital swelling Neck exam: Absent: normal inspection (C-collar in place at time of examination), tenderness, meningismus, lymphadenopathy Respiratory exam: Present: normal lung sounds bilaterally. Absent: respiratory distress, wheezes, rales, rhonchi, stridor Cardiovascular Exam: Present: regular rate, normal rhythm, normal heart sounds. Absent: systolic murmur, diastolic murmur, rubs, gallop, clicks GI/Abdominal exam: Present: soft, normal bowel sounds. Absent: distended, tenderness, guarding, rebound, rigid Neurological exam: Present: alert, oriented X3, CN II-XII intact Psychiatric exam: Present: normal affect, normal mood Skin exam: Present: warm, dry, intact, normal color. Absent: rash Course Vital Signs 02/03/25 16:12 Temperature 98.2 F Pulse Rate 85 Respiratory 16 Rate Blood Pressure 145/83 O2 Sat by Pulse 97 Oximetry Medical Decision Making - Medical Decision Making Was pt. sent in by a medical professional or institution (, PA, SHOE PATTERNMAKER, urgent care, hospital, or correction...) When possible be specific @ -No Did you speak to anyone other than the patient for history (EMS, parent, family, police, friend...)? What history was obtained from this source @ -No Did you review nursing and triage notes (agree or disagree)? Why? @ -I reviewed and agree with nursing and triage notes Were old charts reviewed (outside hosp., previous admission, EMS record, old EKG, old radiological studies, urgent care reports/EKG's, correction records)? Report findings @ -No old charts were reviewed Differential Diagnosis (chest pain, altered mental status, abdominal pain women, abdominal pain men, vaginal bleeding, weakness, fever, dyspnea, syncope, headache, dizziness, GI bleed, back pain, seizure, CVA, palpatations, mental health, musculoskeletal)? @ -Differential Musculoskeletal Muscular strain, contusion, ligament sprain, fracture, arthritis, septic arthritis, bursitis, cellulitis, muscle spasm, nerve compression, DVT, arterial occlusion, herpes zoster, electrolyte abnormality, tumor.... This is not meant to be in all inclusive list EKG interpreted by me (3pts min.). @ -None X-rays interpreted by me (1pt min.). @ -None done CT interpreted by me (1pt min.). @ -CT brain and C-spine revealed no acute process U/S interpreted by me (1pt. min.). @ -None done What testing was considered but not performed or refused? (CT, X-rays, U/S, labs)? Why? @ -None What meds were considered but not given or refused? Why? @ -None Did you discuss the management of the patient with other professionals (professionals i.e. , PA, SHOE PATTERNMAKER, lab, RT, psych nurse, social media marketing manager, credit relationship manager, teacher, submarine advisory team watch officer, family service caseworker)? Give summary @ -No Was smoking cessation discussed for >3mins.? @ -No Was critical care preformed (if so, how long)? @ -No Were there social determinants of health that impacted care today? How? (Homelessness, low income, unemployed, alcoholism, drug addiction, transportation, low edu. Level, literacy, decrease access to med. care, alf, rehab)? @ -No Was there de-escalation of care discussed even if they declined (Discuss DNR or withdrawal of care, Hospice)? DNR status @ -No What co-morbidities impacted this encounter? (DM, HTN, Smoking, COPD, CAD, Cancer, CVA, ARF, Chemo, Hep., AIDS, mental health diagnosis, sleep apnea, morbid obesity)? @ -None Was patient admitted / discharged? Hospital course, mention meds given and route, prescriptions, significant lab abnormalities, going to OR and other pertinent info. @ -Discharge. 64-year-old female presenting for head injury 1 hour prior to arrival. Patient is on warfarin. No loss of conscious. Code coag was initiated and patient was immediately taken to CT. CT brain and C-spine revealed no acute process. Patient has mild abrasions to the left forearm however no other obvious injuries. Patient can be safely discharged home with strict return precautions and supportive care. Case was discussed with my ED attending Dr. Garcia. Undiagnosed new problem with uncertain prognosis? @ -No Drug Therapy requiring intensive monitoring for toxicity (Heparin, Nitro, Insulin, Cardizem)? @ -No Were any procedures done? @ -No Diagnosis/symptom? @ -Closed head injury Acute, or Chronic, or Acute on Chronic? @ -Acute Uncomplicated (without systemic symptoms) or Complicated (systemic symptoms)? @ -Uncomplicated Side effects of treatment? @ -No Exacerbation, Progression, or Severe Exacerbation? @ -No Poses a threat to life or bodily function? How? (Chest pain, [place], [place], pneumonia, PE, COPD, DKA, ARF, appy, cholecystitis, CVA, Diverticulitis, Homicidal, Suicidal, threat to staff... and all critical care pts) @ -No Disposition Clinical Impression: Head injury Disposition: HOME SELF-CARE Condition: Stable Instructions (If sedation given, give patient instructions): Head Injury (ED) Additional Instructions: Please return to the Emergency Department if symptoms worsen or any other co ncerns. Is patient prescribed a controlled substance at d/c from ED?: No Referrals: None,Stated [Primary Care Provider] - 1-2 days Time of Disposition: 17:31
[2025-02-03] MEDS: ACETAMINOPHEN TAB 325 MG TAB PO STA (17:41)
[2025-02-03 17:47] VITALS: BP 128/72; PULSE 71
== END 2025-02-03 17:46 | disposition home or self-care (01) ==
LOC: EC 16:01
DX: S09.90XA Unspecified injury of head, initial encounter (principal); Z86.73 Personal history of transient ischemic attack (TIA), and cerebral infarction without residual deficits; F17.200 Nicotine dependence, unspecified, uncomplicated; Z88.1 Allergy status to other antibiotic agents; Z88.5 Allergy status to narcotic agent; Z91.040 Latex allergy status; Z88.8 Allergy status to other drugs, medicaments and biological substances; W01.0XXA Fall on same level from slipping, tripping and stumbling without subsequent striking against object, initial encounter
CPT/HCPCS: 70450; 72125; 99284

== ENCOUNTER 2025-02-26 17:33 | Emergency (ER) | payer MEDICARE ==
[2025-02-26 17:40] VITALS: RESP 18
--- NOTE | 2025-02-26 17:50 | ED ---
Abdominal Pain HPI - General Chief Complaint: Abdominal Pain Stated Complaint: abd pain Time Seen by Provider: 02/26/25 17:36 Source: EMS, RN notes reviewed, old records reviewed Mode of arrival: EMS Limitations: no limitations - History of Present Illness Initial Comments: This is a 64 female to the ER for evaluation of multiple complaints chronic pain chronic abdominal pain being her main complaint. Patient reiterates I am just sick and tired of being in pain. Patient also believes she is severely depressed needing psychiatric evaluation as she does feel suicidal MD Complaint: abdominal pain -: month(s) Radiation: epigastric, suprapubic Migration to: LLQ, epigastric, suprapubic Severity: moderate Severity scale (1-10): 6 Quality: aching Consistency: constant Worsens With: nothing Associated Symptoms: nausea - Related Data Previous Rx's Medication Instructions Recorded DULoxetine HCL [Cymbalta] 60 mg PO DAILY #30 cap 01/24/25 Pantoprazole [Protonix] 40 mg PO DAILY #30 tab 01/24/25 Warfarin [Coumadin] 5 mg PO DAILY #30 tab 01/26/25 Allergies Allergy/AdvReac Type Severity Reaction Status Date / Time hydrogen peroxide Allergy rash and Verified 02/26/25 19:21 skin burn Latex, Natural Rubber Allergy Swelling/ra Verified 02/26/25 19:21 sh metronidazole Allergy Rash/Hives Verified 02/26/25 19:21 fentanyl AdvReac decreased Verified 02/26/25 19:21 bp isosorbide AdvReac Rapid Verified 02/26/25 19:21 Heart Rate Review of Systems ROS Statement: Those systems with pertinent positive or pertinent negative responses have been documented in the HPI. ROS Other: All systems not noted in ROS Statement are negative. Past Medical History Past Medical History: Chest Pain / Angina, COPD, Deep Vein Thrombosis (DVT), Eye Disorder, GERD/Reflux, Hearing Disorder / Deafness, Memory Impairment, Osteoarthritis (OA), Pneumonia, Pulmonary Embolus (PE), Seizure Disorder, Skin Disorder, Syncope Additional Past Medical History / Comment(s): Chronic back and bilateral knee pain, DDD, cervical/back "nerve damage", "low BP", DVT right thigh, bilateral PEs in 2010 and 2014, migraines, osteoporosis, IBS, vertigo at times, R wrist 2 cysts, pt states since cataract surgery her vision has declined. CVA per CT per pt. Last Seizure -04/2024 Pneumonia 04/2024. yeast rash under breast. rt hand edematous. insomnia History of Any Multi-Drug Resistant Organisms: MRSA Date of last positivie culture/infection: >30 yrs ago MDRO Source:: left hand Past Surgical History: Appendectomy, Cholecystectomy, Heart Catheterization, Hernia Repair Additional Past Surgical History / Comment(s): EGD/COLONOSCOPY/POLYPECTOMY- BENIGN, cardiac cath 06/10/16-normal, back/bilateral knee injections. epidural steroid inj -back, bilateral cataract removals/lens implants. intestinal surgery for "vein wrapped around intestine" Past Anesthesia/Blood Transfusion Reactions: No Reported Reaction Additional Past Anesthesia/Blood Transfusion Reaction / Comment(s): Pt has claustrophobia. Past Psychological History: Bipolar, Depression, Schizophrenia Smoking Status: Current every day smoker, Former smoker, Light tobacco smoker Past Alcohol Use History: None Reported Past Drug Use History: Marijuana - Past Family History Mother Family Medical History: Cancer, COPD, Hyperlipidemia, Hypertension Additional Family Medical History / Comment(s): Mother of LUNG CANCER at the age of 74yrs. Father Family Medical History: CVA/TIA, Hypertension Additional Family Medical History / Comment(s): Father had 2 CVAs and from the second one at the age of 52yrs. He was an alcoholic. General Exam General appearance: alert, in no apparent distress Head exam: Present: atraumatic, normocephalic, normal inspection Eye exam: Present: normal appearance, PERRL, EOMI. Absent: scleral icterus, conjunctival injection, periorbital swelling ENT exam: Present: normal exam, mucous membranes moist Neck exam: Present: normal inspection. Absent: tenderness, meningismus, lymphadenopathy Respiratory exam: Present: normal lung sounds bilaterally. Absent: respiratory distress, wheezes, rales, rhonchi, stridor Cardiovascular Exam: Present: regular rate, normal rhythm, normal heart sounds. Absent: systolic murmur, diastolic murmur, rubs, gallop, clicks GI/Abdominal exam: Present: soft, normal bowel sounds. Absent: distended, tenderness, guarding, rebound, rigid Extremities exam: Present: normal inspection, full ROM, normal capillary refill. Absent: tenderness, pedal edema, joint swelling, calf tenderness Back exam: Present: normal inspection Neurological exam: Present: alert, oriented X3, CN II-XII intact Psychiatric exam: Present: normal affect, normal mood Skin exam: Present: warm, dry, intact, normal color. Absent: rash Course Vital Signs 02/26/25 02/26/25 17:34 19:02 Temperature 98.3 F Pulse Rate 107 H 104 H Respiratory 18 18 Rate Blood Pressure 126/82 128/69 O2 Sat by Pulse 97 97 Oximetry - Reevaluation(s) Reevaluation #1: 02/26/25 18:05 Medical records reviewed Reevaluation #2: 02/26/25 21:02 Medically cleared for psychiatric evaluation Reevaluation #3: 02/26/25 21:02 Patient informed of results and questions answered Reevaluation #4: Was pt. sent in by a medical professional or institution ([facility], QUALITY CONTROL INDUSTRIAL ENGINEER, urgent care, hospital, or long-term...) When possible be specific @ -no Did you speak to anyone other than the patient for history (EMS, parent, family, police, friend...)? What history was obtained from this source @ -no Did you review nursing and triage notes (agree or disagree)? Why? @ -agree Are old charts reviewed (outside hosp., previous admission, EMS record, old EKG, old radiological studies, urgent care reports/EKG's, long-term records)? Report findings @ -yes Differential Diagnosis (chest pain, altered mental status, abdominal pain women, abdominal pain men, vaginal bleeding, weakness, fever, dyspnea, syncope, headache, dizziness, GI bleed, back pain, seizure, CVA, palpatations, mental health, musculoskeletal)? @ -prior EKG interpreted by me (3pts min.). @ -yes X-rays interpreted by me (1pt min.). @ -yes negative for acute disease CT interpreted by me (1pt min.). @ -no U/S interpreted by me (1pt. min.). @ -no What testing was considered but not performed or refused? (CT, X-rays, U/S, labs)? Why? @ -none What meds were considered but not given or refused? Why? @ -none Did you discuss the management of the patient with other professionals (professionals i.e. [facility], QUALITY CONTROL INDUSTRIAL ENGINEER, lab, RT, psych nurse, social welfare clerk, handle machine operator, teacher, traffic control officer, case finishing machine adjuster)? Give summary @ -no Was smoking cessation discussed for >3mins.? @ -no Was critical care preformed (if so, how long)? @ -no Were there social determinants of health that impacted care today? How? (H omelessness, low income, unemployed, alcoholism, drug addiction, transportation, low edu. Level, literacy, decrease access to med. care, penitentiary, rehab)? @ -none Was there de-escalation of care discussed even if they declined (Discuss DNR or withdrawal of care, Hospice)? DNR status @ -no What co-morbidities impacted this encounter? (DM, HTN, Smoking, COPD, CAD, Cancer, CVA, ARF, Chemo, Hep., AIDS, mental health diagnosis, sleep apnea, morbid obesity)? @ -none Was patient admitted / discharged? Hospital course, mention meds given and route, prescriptions, significant lab abnormalities, going to OR and other pertinent info. @ - Undiagnosed new problem with uncertain prognosis? @ -no Drug Therapy requiring intensive monitoring for toxicity (Heparin, Nitro, Insulin, Cardizem)? @ -no Were any procedures done? @ -no Diagnosis/symptom? @ - Acute, or Chronic, or Acute on Chronic? @ -Acute Uncomplicated (without systemic symptoms) or Complicated (systemic symptoms)? @ -Complicated Side effects of treatment? @ -no Exacerbation, Progression, or Severe Exacerbation? @ -exacerbation Poses a threat to life or bodily function? How? (Chest pain, USA, LA, pneumonia, PE, COPD, DKA, ARF, appy, cholecystitis, CVA, Diverticulitis, Homicidal, Suicidal, threat to staff... and all critical care pts) @ -yes Reevaluation #5: Differential Abdominal Pain Women: Appendicitis, Cholecystitis, diverticulosis, ischemic bowel, pancreatitis, hepatitis, UTI, gastroenteritis, AAA, incarcerated hernia, bowel obstruction, constipation, inflammatory bowel, hepatitis, peptic ulcer disease, splenic infarction, perforated viscus, vulvitis, ovarian torsion, PID, kidney stone, placenta abruption, this is not meant to be an all-inclusive list Medical Decision Making - Medical Decision Making 64 male with nonspecific abdominal pain. No "acute cause found with abdominal pain patient does have intermittent severe depression depression due to chronic pain occasionally suicidal but is seen evaluate psychiatry here and is okay for discharge home - Lab Data Result diagrams: 02/26/25 18:03 02/26/25 18:03 Lab Results 02/26/25 02/26/25 02/26/25 Range/Units 18:03 18:03 18:03 WBC 5.99 (4.50-10.00) 10*3/uL RBC 4.14 (4.10-5.20) 10*6/uL Hgb 12.2 (12.0-15.0) g/dL Hct 35.0 L (37.2-46.3) % MCV 84.5 (80.0-97.0) fL MCH 29.5 (27.0-32.0) pg MCHC 34.9 (32.0-37.0) g/dL Plt Count 251 (140-440) 10*3/uL MPV 10.5 (9.5-12.2) fL Immature Gran % (Auto) 0.2 % Neutrophils % 66.8 % Lymphocytes % 24.2 % Monocytes % 8.3 % Eosinophils % 0.0 % Basophils % 0.5 % Immature Gran # 0.01 (0.00-0.04) 10*3/uL Neutrophils # 4.00 (1.80-7.70) 10*3/uL Lymphocytes # 1.45 (0.90-5.00) 10*3/uL Monocytes # 0.50 (0.20-1.00) 10*3/uL Eosinophils # 0.00 L (0.04-0.35) 10*3/uL Basophils # 0.03 (0.00-0.10) 10*3/uL Sodium 133 L (137-145) mmol/L Potassium 3.6 (3.5-5.1) mmol/L Chloride 105 (98-107) mmol/L Carbon Dioxide 19 L (22-30) mmol/L Anion Gap 9 mmol/L BUN 16 (7-17) mg/dL Creatinine 0.73 (0.52-1.04) mg/dL Est GFR (CKD-EPI)AfAm >90 (>60 ml/min/1.73 sqM) Est GFR (CKD-EPI)NonAf 88 (>60 ml/min/1.73 sqM) Glucose 110 H (74-99) mg/dL Plasma Lactic Acid Cheo 0.9 (0.7-2.0) mmol/L Calcium 9.5 (8.4-10.2) mg/dL Total Bilirubin 0.7 (0.2-1.3) mg/dL AST 17 (14-36) U/L ALT 14 (4-34) U/L Alkaline Phosphatase 88 (38-126) U/L Troponin I (0.000-0.034) ng/mL Total Protein 6.3 (6.3-8.2) g/dL Albumin 3.8 (3.5-5.0) g/dL Amylase 51 (30-110) U/L Lipase 49 (23-300) U/L 02/26/25 Range/Units 18:03 WBC (4.50-10.00) 10*3/uL RBC (4.10-5.20) 10*6/uL Hgb (12.0-15.0) g/dL Hct (37.2-46.3) % MCV (80.0-97.0) fL MCH (27.0-32.0) pg MCHC (32.0-37.0) g/dL Plt Count (140-440) 10*3/uL MPV (9.5-12.2) fL Immature Gran % (Auto) % Neutrophils % % Lymphocytes % % Monocytes % % Eosinophils % % Basophils % % Immature Gran # (0.00-0.04) 10*3/uL Neutrophils # (1.80-7.70) 10*3/uL Lymphocytes # (0.90-5.00) 10*3/uL Monocytes # (0.20-1.00) 10*3/uL Eosinophils # (0.04-0.35) 10*3/uL Basophils # (0.00-0.10) 10*3/uL Sodium (137-145) mmol/L Potassium (3.5-5.1) mmol/L Chloride (98-107) mmol/L Carbon Dioxide (22-30) mmol/L Anion Gap mmol/L BUN (7-17) mg/dL Creatinine (0.52-1.04) mg/dL Est GFR (CKD-EPI)AfAm (>60 ml/min/1.73 sqM) Est GFR (CKD-EPI)NonAf (>60 ml/min/1.73 sqM) Glucose (74-99) mg/dL Plasma Lactic Acid Cheo (0.7-2.0) mmol/L Calcium (8.4-10.2) mg/dL Total Bilirubin (0.2-1.3) mg/dL AST (14-36) U/L ALT (4-34) U/L Alkaline Phosphatase (38-126) U/L Troponin I <0.012 (0.000-0.034) ng/mL Total Protein (6.3-8.2) g/dL Albumin (3.5-5.0) g/dL Amylase (30-110) U/L Lipase (23-300) U/L - Radiology Data Radiology results: report reviewed (CT abdomen pelvis negative for acute disease), image reviewed Disposition Clinical Impression: Abdominal colic, Depression, Chronic pain Disposition: HOME SELF-CARE Condition: Good Instructions (If sedation given, give patient instructions): Chronic Pain (ED), Depression (ED), Abdominal Pain (ED) Is patient prescribed a controlled substance at d/c from ED?: No Referrals: None,Stated [Primary Care Provider] - 1-2 days
[2025-02-26 17:52] VITALS: TEMP 98.3
[2025-02-26 18:08] LABS: Basophils # (A) 0.03 10*3/uL (0.00-0.10); Basophils % (A) 0.5 %; HGB 12.2 g/dL (12.0-15.0); Lymphocytes # (A) 1.45 10*3/uL (0.90-5.00); Lymphocytes % (A) 24.2 %; MCH 29.5 pg (27.0-32.0); MCHC 34.9 g/dL (32.0-37.0); MCV 84.5 fL (80.0-97.0); Mean Platelet Volume 10.5 fL (9.5-12.2); Monocytes % (A) 8.3 %; Neutrophils % (A) 66.8 %; Platelet Count 251 10*3/uL (140-440); RBC 4.14 10*6/uL (4.10-5.20); RDW 16.7 % (11.5-14.5); WBC 5.99 10*3/uL (4.50-10.00)
[2025-02-26] MEDS: ONDANSETRON 4 MG/2 ML VIAL IVP STA (18:14)
[2025-02-26 18:20] LABS: ALT 14 U/L (4-34); AST 17 U/L (14-36); African American GFR (CKD) >90 (>60 ml/min/1.73 sqM); Albumin 3.8 g/dL (3.5-5.0); Alkaline Phosphatase 88 U/L (38-126); Amylase 51 U/L (30-110); Anion Gap 9 mmol/L; Blood Urea Nitrogen 16 mg/dL (7-17); Calcium 9.5 mg/dL (8.4-10.2); Carbon Dioxide 19 mmol/L (22-30); Chloride 105 mmol/L (98-107); Glucose 110 mg/dL (74-99); Lipase 49 U/L (23-300); Non-African American GFR(CKD) 88 (>60 ml/min/1.73 sqM); Potassium 3.6 mmol/L (3.5-5.1); Sodium 133 mmol/L (137-145); Total Bilirubin 0.7 mg/dL (0.2-1.3); Total Protein 6.3 g/dL (6.3-8.2)
--- NOTE | 2025-02-26 18:48 | CT ---
EXAMINATION TYPE: CT abdomen pelvis wo con DATE OF EXAM: 02/26/2025 6:28 PM COMPARISON: Prior CT abdomen/pelvis of 09/11/2024. CLINICAL INDICATION: Female, 64 years old with history of pain; pain TECHNIQUE: Axial CT abdomen pelvis wo con;Sagittal and coronal reformats were created on a separate workstation. Oral contrast used: without Oral Contrast (none if empty) CT DLP: 362.4 mGycm, Automated exposure control for dose reduction was used. FINDINGS: LOWER CHEST: Unremarkable ABDOMEN LIVER: Unremarkable GALLBLADDER AND BILE DUCTS: The gallbladder is surgically absent. PANCREAS: Unremarkable. SPLEEN: Unremarkable. ADRENAL GLANDS: Unremarkable. KIDNEYS AND URETERS: No evidence of hydronephrosis or renal calculus. The ureters are unremarkable. PELVIS BLADDER: No evidence for wall thickening or mass given limitations of exam. REPRODUCTIVE: Unremarkable. ABDOMEN & PELVIS STOMACH AND BOWEL: Stable postsurgical changes of previous gastrojejunostomy. Additional stable posts urgical changes involving the anterior abdominal wall. No evidence of small bowel obstruction. No abn ormal small or large bowel wall thickening. PERITONEUM/RETROPERITONEUM: No evidence of pneumoperitoneum or free fluid. VASCULATURE: No evidence of aortic aneurysm. MUSCULOSKELETAL: No acute osseous abnormalities LYMPH NODES: No gross evidence for lymphadenopathy. IMPRESSION: No acute abnormality in the abdomen/pelvis. [facility], , 02/26/2025 6:46 PM
[2025-02-26] MEDS: HYDROmorphone 0.5 MG/0.5 ML SYRINGE IVP STA (18:57)
[2025-02-26] MEDS: SODIUM CHLORIDE 0.9% 1,000 ML IV ONE ×2 (18:59→19:00)
[2025-02-26] MEDS: LORazepam 1 MG/0.5 ML VIAL IV STA (18:59)
[2025-02-26] MEDS: ACET/COD 300 MG/30 MG STARTER PACK 6 TAB BTL PO STA (21:17)
[2025-02-26] MEDS: traMADol 50 MG STARTER PACK 3 TAB BTL PO STA (21:18)
[2025-02-26 21:21] VITALS: BP 118/72; PULSE 102
== END 2025-02-26 21:22 | disposition home or self-care (01) ==
LOC: EC 17:33
DX: R10.84 Generalized abdominal pain (principal); F32.A Depression, unspecified; G89.29 Other chronic pain; F17.290 Nicotine dependence, other tobacco product, uncomplicated; Z88.1 Allergy status to other antibiotic agents; Z88.3 Allergy status to other anti-infective agents; Z88.5 Allergy status to narcotic agent; Z91.040 Latex allergy status; Z88.8 Allergy status to other drugs, medicaments and biological substances
CPT/HCPCS: 82075; 36415; 80053; 82150; 83605; 83690; 84484; 85025; 74176; 99285; 96374; 96375; 96361; J2060; J1171